=== PATIENT | female | born 1945 | race Caucasian/White ===

== ENCOUNTER 2016-07-20 14:49 | Emergency (ER) | payer MEDICARE, BC ==
[2016-07-20 15:06] VITALS: BP 172/83
--- NOTE | 2016-07-20 15:47 | UC ---
Neck Pain HPI - HPI Summary HPI Summary: The patient comes in today for: 1. Neck pain: Onset: 3-4 days. Palliative/provocative: Head movements does not make her neck pain better or worse by her report. However, when she turns her head, she will grimace. She is on Naproxen for her hip pain, but she states that this does not help. Touching the back of her neck makes it worse. Later even though initially she said that movement does not make her neck pain worse, she later said that moving her head down does. Later she states that the Naproxen did in fact make the pain better lowering the pain level from 8/10 to 6/10. Quality: Burning and sharp. Region: Back, of neck Severity: 10/23 Time: Constant. Associated symptoms: Previous disease: She states that she has osteoarthritis and osteoporosis. She has not had any previous c-spine x-rays. Event: She went to physical therapy today being seen for her osteoarthritis of the hips. While at physical therapy, the physical therapist looked at the patient's neck and said that she needed an x-ray. The physical therapist said that she was going to send a fax over to the patient's PCP yesterday. The patient called her PCP's office and said that the fax was not present. She was told to come here for evaluation. Numbness/weakness of arms: None. * - History of Current Complaint Chief Complaint: UCBackPain Stated Complaint: NECK PAIN Time Seen by Provider: 07/20/16 15:35 Hx Obtained From: Patient ?: No - Allergies/Home Medications Allergies/Adverse Reactions: Allergies Allergy/AdvReac Type Severity Reaction Status Date / Time Amoxicillin [From Augmentin] Allergy Hives Verified 07/20/16 15:07 Clavulanic Acid Allergy Hives Verified 07/20/16 15:07 [From Augmentin] Sulfa Antibiotics Allergy Hives Verified 07/20/16 15:07 Home Medications: Home Medications Naproxen [Naproxen Dr] 500 mg PO 07/20/16 [History] PMH/Surg Hx/FS Hx/Imm Hx Previously Healthy: No - Multiple sclerosis, osteoarthritis, osteoporosis, peripheral neuropathy? Endocrine History Of: Denies: Diabetes, Thyroid Disease, Hyperthyroidism, Hypothyroidism, Dyslipidemia Cardiovascular History Of: Reports: Deep Vein Thrombosis - hx 9 years ago (DVT bilateral lower legs). Denies: Cardiac Disorders, Hypertension, Pacemaker/ICD, Myocardial Infarction , Congestive Heart Failure, Atrial Fibrillation, Bleeding Disorders Respiratory History Of: Reports: COPD, Asthma Denies: Bronchitis, Pneumonia, Pulmonary Embolism GI/ History Of: Denies: Gastroesophageal Reflux, Ulcer, Gastrointestinal Bleed, Gall Bladder Disease, Kidney Stones, Diverticulitis, Renal Disease, Urosepsis Neurological History Of: Denies: TIA, CVA, Dementia, Seizures, Migraine Psychological History Of: Reports: Depression Denies: Anxiety, Bipolar Disorder, Schizophrenia, Post Traumatic Stress Disorder Cancer History Of: Reports: Lung Cancer, Colorectal Cancer Denies: Breast Cancer, Prostate Cancer, Cervical Cancer Other History Of: Anticoagulant Therapy - 81 mg aspirin, but she does not know why she is on this medication. Negative For: HIV, Hepatitis B, Hepatitis C - Surgical History Surgical History: Yes Surgery Procedure, Year, and Place: TONSILECTOMY;APPENDECTOMY; PARTIAL HYSTERECTOMY; EXPLORATORY THYROID; DISCECTOMY LOW BACK-2002; BREAST BIOPSY CLIP -Rt - Family History Known Family History: Positive: Cardiac Disease, Diabetes Negative: Hypertension - Social History Occupation: Retired Alcohol Use: Rare Substance Use Type: None Smoking Status (MU): Former Smoker Type: Cigarettes, eCigarettes Length of Time of Smoking/Using Tobacco: 40 years Have You Smoked in the Last Year: Yes When Did the Patient Quit Smoking/Using Tobacco: 2011 - Immunization History Most Recent Influenza Vaccination: fall 2015 Review Of Systems Constitutional: Positive: Negative Skin: Positive: Negative Eyes: Positive: Negative ENT: Positive: Negative Respiratory: Positive: Negative Cardiovascular: Positive: Negative Gastrointestinal: Positive: Negative Genitourinary: Positive: Negative Musculoskeletal: Positive: Arthralgia, Myalgia All Other Systems Reviewed And Are Negative: Yes Physical Exam Triage Information Reviewed: Yes Appearance: Well-Appearing, No Pain Distress, Well-Nourished Vital Signs: Initial Vital Signs Temp 98.3 F 07/20/16 14:59 Pulse 83 07/20/16 14:59 Resp 18 07/20/16 14:59 BP 172/83 07/20/16 14:59 Pulse Ox 96 07/20/16 14:59 Vital Signs Reviewed: Yes Eyes: Positive: Conjunctiva Clear. Negative: Discharge ENT: Positive: Hearing grossly normal. Negative: Pharyngeal erythema, Nasal congestion, Nasal drainage, TM bulging, TM dull, TM red, Tonsillar swelling, Tonsillar exudate Neck: Positive: Supple, Nontender, No Lymphadenopathy Respiratory: Positive: Chest non-tender, Lungs clear, No respiratory distress, No accessory muscle use. Negative: Crackles, Wheezing Cardiovascular: Positive: RRR, No Murmur Abdomen Description: Positive: Nontender, No Organomegaly, Soft. Negative: Distended, Guarding Musculoskeletal: Positive: Strength Intact, ROM Intact, No Edema, Other: - There was tenderness to palpation of the scalene musculature and the trapezius. Range of motion of the neck was restricted for backward extension. Left rotation is restricted compared to the right. Bilateral flexion is limited but as expected for a 70 year old with history of osteoarthritis and osteoporosis. There is 2+/2 x 2 for biceps, triceps, and brachioradialis. Strength is appropriate for age and symmetrical. Neurological: Positive: Alert, Muscle Tone Normal Psychological: Positive: Normal Response To Family, Age Appropriate Behavior, Consolable Skin: Negative: rashes, breakdown Diagnostics - Laboratory Diagnostic Studies Completed/Ordered: Cervical spine x-ray: IMPRESSION: 1. MILD CHRONIC ANTERIOR LISTHESIS AT THE C3-C4 LEVEL AND MILD RETROLISTHESIS AT THE C5-C6. LEVEL, UNCHANGED. 2. MODERATE TO SEVERE DEGENERATIVE DISC DISEASE AT THE C4-C5 AND C5-C6 LEVELS. - Radiology No standard instances Xray Interpretation: No Acute Changes Radiology Interpretation Completed By: Radiologist Neck Pain Course/Dx - Course Course Of Treatment: Osteoarthritis of the cervical spine. - Differential Dx/Diagnosis Provider Diagnoses: osteoarthritis of the cervical spine. Discharge - Discharge Plan Condition: Stable Disposition: HOME Patient Education Materials: Cervical Sprain (ED), Chronic Neck Pain (GEN), Degenerative Disc Disease (ED) Referrals: Jeni Gardner NP [Primary Care Provider] - 1 Week (Please see your primary care provider in a week to see how well you are doing. If you get worse, please be seen sooner in the ER or through us.) Additional Instructions: Please see your primary care provider regarding your osteoarthritis treatment or your orthopedic surgeon.
--- NOTE | 2016-07-20 16:24 | RAD ---
INDICATION: Neck pain, history of osteoarthritic. COMPARISON: Comparison is made with a prior study from April 13, 2011. TECHNIQUE: 5 views of the cervical spine were obtained including lateral, oblique, AP, open-mouth odontoid views. FINDINGS: C1-C7 are visualized. There is mild anterior listhesis of C3 relative to C4 and mild retrolisthesis of C5 relative to C6 of approximately 2 mm at each level. No prevertebral soft tissue swelling or fracture is seen. Moderate to severe disc space narrowing and mild uncinate process spurring is present at the C4-C5 and C5-C6 levels. There is mild to moderate bilateral neural foraminal narrowing at those levels. IMPRESSION: 1. MILD CHRONIC ANTERIOR LISTHESIS AT THE C3-C4 LEVEL AND MILD RETROLISTHESIS AT THE C5-C6 LEVEL, UNCHANGED. 2. MODERATE TO SEVERE DEGENERATIVE DISC DISEASE AT THE C4-C5 AND C5-C6 LEVELS.
== END 2016-07-20 17:01 | disposition home or self-care (01) ==
LOC: UCEAST 14:49
DX: M47.812 Spondylosis without myelopathy or radiculopathy, cervical region (principal); G35 Multiple sclerosis; Z79.82 Long term (current) use of aspirin; Z86.718 Personal history of other venous thrombosis and embolism; Z88.1 Allergy status to other antibiotic agents; Z88.2 Allergy status to sulfonamides; Z87.891 Personal history of nicotine dependence
CPT/HCPCS: 72050; 99212; G0463

== ENCOUNTER 2016-07-30 18:26 | Emergency (ER) | payer MEDICARE, BC ==
--- NOTE | 2016-07-30 21:12 | RAD ---
INDICATION: Right lower extremity swelling. COMPARISON: Comparison is made with a prior study from September 07, 2007. TECHNIQUE: Multiple real-time, color flow and Doppler tracings of the right lower extremity were obtained. FINDINGS: The common femoral, femoral, profunda femoral and popliteal veins all demonstrate normal compressibility, augmentation with compression and phasic response with respiration. The posterior tibial and peroneal veins demonstrate normal compressibility and augmentation with compression. IMPRESSION: NO EVIDENCE FOR DEEP VENOUS THROMBOSIS.
[2016-07-30] MEDS ORDERED: Rivaroxaban TAB(*) 20 MG TAB PO SCH (23:45)
[2016-07-30] MEDS ORDERED: Acetaminophen TAB* 325 MG PO ONE (23:51)
[2016-07-30] MEDS ORDERED: Rivaroxaban TAB(*) 15 MG PO ONE (23:57)
[2016-07-31 04:10] VITALS: BP 131/67
--- NOTE | 2016-08-01 09:25 | ED ---
Dylan Zamarripa Aidan, scribed for Bayron Harris MD on 07/30/16 at 2350 . Lower Extremity - HPI Summary HPI Summary: 70 y/o female presents to the ED with a complaint of acute, constant, moderate ( 5/10) pain in her right calf and right ankle swelling that persisted for a week before coming in today. She no longer has swelling in her right ankle. She denies any CP, SOB, or any recent excessive physical activity. Hx of COPD and blood clots. She was previously on Coumadin. Hx of smoking and DVT - History of Current Complaint Chief Complaint: EDExtremityLower Stated Complaint: SWELLING IN RT LEG/SENT BY DAVID STEWART Time Seen by Provider: 07/30/16 23:28 Hx Obtained From: Patient Hx Last Menstrual Period: 70 y/o female Mechanism Of Injury: Unknown Onset of Pain: Days - a week ago Onset/Duration: Weeks - 1 week Severity Initially: Moderate Severity Currently: Moderate Pain Intensity: 5 Pain Scale Used: 0-10 Numeric Timing: Constant Location: Is Discrete @ - right calf Character Of Pain: Sharp Associated Signs And Symptoms: Positive: Other - previously had right ankle swelling, however, she does not currently Aggravating Factor(s): Other - unknown Alleviating Factor(s): Other - unknown Able to Bear Weight: Yes - Risk Factors DVT Risk Factors: Prior DVT - Allergies/Home Medications Allergies/Adverse Reactions: Allergies Allergy/AdvReac Type Severity Reaction Status Date / Time Amoxicillin [From Augmentin] Allergy Hives Verified 07/30/16 18:57 Clavulanic Acid Allergy Hives Verified 07/30/16 18:57 [From Augmentin] Sulfa Antibiotics Allergy Hives Verified 07/30/16 18:57 PMH/Surg Hx/FS Hx/Imm Hx Endocrine/Hematology History: Reports: Hx Anticoagulant Therapy - 81 mg aspirin , but she does not know why she is on this medication. Denies: Hx Diabetes, Hx Thyroid Disease Cardiovascular History: Reports: Hx Deep Vein Thrombosis - hx 9 years ago (DVT bilateral lower legs)., Hx Hypercholesterolemia Denies: Hx Congestive Heart Failure, Hx Hypertension, Hx Myocardial Infarction, Hx Pacemaker/ICD Respiratory History: Reports: Hx Asthma, Hx Chronic Obstructive Pulmonary Disease (COPD), Hx Lung Cancer Denies: Hx Pneumonia, Hx Pulmonary Embolism Comment Only: Other Respiratory Problems/Disorders - HX PNEMONIA 2011 GI History: Reports: Other GI Disorders - bloating, occassional diarrhea Denies: Hx Gall Bladder Disease, Hx Gastrointestinal Bleed, Hx Ulcer, Hx Urosepsis History: Denies: Hx Kidney Stones, Hx Renal Disease Musculoskeletal History: Reports: Hx Osteoporosis Sensory History: Denies: Hx Hearing Aid Neurological History: Reports: Other Neuro Impairments/Disorders - MS Denies: Hx Dementia, Hx Migraine, Hx Seizures, Hx Transient Ischemic Attacks (TIA) Psychiatric History: Reports: Hx Depression Denies: Hx Anxiety, Hx Panic Disorder, Hx Schizophrenia, Hx Bipolar Disorder - Cancer History Hx Chemotherapy: No Hx Radiation Therapy: No - Surgical History Surgery Procedure, Year, and Place: TONSILECTOMY;APPENDECTOMY; PARTIAL HYSTERECTOMY; EXPLORATORY THYROID; DISCECTOMY LOW BACK-2002; BREAST BIOPSY CLIP -Rt Infectious Disease History: No Infectious Disease History: Denies: Hx Clostridium Difficile, Hx Hepatitis, Hx Human Immunodeficiency Virus (HIV), Hx of Known/Suspected MRSA, Hx Shingles, Hx Tuberculosis, Hx Known/ Suspected VRE, History Other Infectious Disease, Traveled Outside the [place] in Last 30 Days - Family History Known Family History: Positive: Cardiac Disease, Diabetes Negative: Hypertension - Social History Occupation: Retired Lives: With Family Alcohol Use: Rare Substance Use Type: Reports: None Smoking Status (MU): Former Smoker Type: Cigarettes, eCigarettes Length of Time of Smoking/Using Tobacco: 40 years Have You Smoked in the Last Year: Yes Review of Systems Negative: Fever, Chills, Fatigue, Skin Diaphoresis Negative: Photophobia, Blurred Vision, Diplopia, Drainage, Erythema Negative: Epistaxis, Dental Pain, Sore Throat, Ear Ache, Nasal Discharge Negative: Palpitations, Chest Pain Negative: Shortness Of Breath, Cough Negative: Abdominal Pain, Vomiting, Diarrhea, Nausea Negative: burning, dysuria, discharge, frequency, flank pain, hematuria, incontinence, pain, urgency Positive: Myalgia - had right ankle swelling that is not currently present, right calf pain, Edema - claims to have had right ankle swelling . Negative: Arthralgia, Decreased ROM Negative: Rash, Bruising Negative: Headache, Weakness, Paresthesia, Numbness, Syncope, Slurred Speech Negative: Anxious, Depressed All Other Systems Reviewed And Are Negative: Yes Physical Exam - Summary Physical Exam Summary: Constitutional: Well-developed, Well-nourished, Alert. (-) Distressed Skin: Warm, Dry HENT: Normocephalic; Atraumatic Eyes: Conjunctiva normal Neck: Musculoskeletal ROM normal neck. (-) JVD, (-) Stridor, (-) Tracheal deviation Cardio: Rhythm regular, rate normal, Heart sounds normal; Intact distal pulses; The pedal pulses are 2+ and symmetric. Radial pulses are 2+ and symmetric. (-) Murmur Pulmonary/Chest wall: Effort normal. (-) Respiratory distress, (-) Wheezes, (-) Rales Abd: Soft, (-) Tenderness, (-) Distension, (-) Guarding, (-) Rebound Musculoskeletal: (-) Edema Lymph: (-) Cervical adenopathy Neuro: Alert, Oriented x3 Psych: Mood and affect Normal tenderness over right posterior calf, no significant swelling Triage Information Reviewed: Yes Vital Signs On Initial Exam: Initial Vitals Temp Pulse Resp BP Pulse Ox 98.0 F 84 18 154/73 96 07/30/16 18:56 07/30/16 18:56 07/30/16 18:56 07/30/16 18:56 07/30/16 18:56 Vital Signs Reviewed: Yes Diagnostics - Vital Signs Vital Signs Temp Pulse Resp BP Pulse Ox 07/30/16 18:56 98.0 F 84 18 154/73 96 - Laboratory Lab Statement: Any lab studies that have been ordered have been reviewed, and results considered in the medical decision making process. Lower Extremity Course/Dx - Course Course Of Treatment: Given her Hx of DVT, no pain with active pass of ROM, and point tenderness despite a negative US, we cannot rule out DVT. Anticoagulate her for 3 days and to see PCP for repeat US on Tuesday08/02/2016 - Diagnoses Provider Diagnoses: Calf pain Discharge - Discharge Plan Condition: Stable Disposition: HOME Discharge Disposition Comment: Folloiw up with primary in 2 days, recommended to discontinue naproxen. Prescriptions: Rivaroxaban TAB(*) [Xarelto 15 mg(*)] 15 mg PO BID #10 tab The documentation as recorded by the Dylan gonzalez Aidan accurately reflects the service I personally performed and the decisions made by , Bayron Harris MD.
== END 2016-07-31 00:30 | disposition home or self-care (01) ==
LOC: ED 18:26
DX: M79.661 Pain in right lower leg (principal); M25.471 Effusion, right ankle; Z87.891 Personal history of nicotine dependence
CPT/HCPCS: 99282; A9270-GY

== ENCOUNTER 2017-12-06 16:00 | Inpatient (IN) | payer MEDICARE, OTHER ==
--- NOTE | 2017-11-30 10:12 | HP ---
HISTORY AND PHYSICAL: DATE OF ADMISSION: 12/08/17 PROVIDER: Dr. Akosua Guzman.* (DICTATED BY PENELOPE WALLACE) HISTORY OF PRESENT ILLNESS: Ms. Cleary is a 71-year-old female who complains of left groin pain and lateral hip pain. She is having trouble ambulating more than a block without severe pain. Her family members report that she does not walk much and then she does not leave the house much because of the pain. She has failed anti-inflammatories, Lyrica, and pain pills without relief. She has also failed physical therapy. She would like to proceed with a left total hip arthroplasty to be performed on 12/08/17. PAST MEDICAL HISTORY: 1. Osteoporosis. 2. Osteoarthritis. 3. Hypercholesterolemia. 4. Asthma. 5. COPD. 6. DVT after a leg fracture and casting that was seen in [facility]. 7. Multiple sclerosis. 8. Hypothyroidism. 9. Depression. 10. Anxiety. PAST SURGICAL HISTORY: 1. T and A. 2. Appendectomy. 3. Hysterectomy, subtotal. 4. Lower back surgery, discectomy. MEDICATIONS: 1. Advair Diskus 500/50 through the nebulizer use 3 times a day as needed. 2. Copaxone 40 mg/mL. 3. Prolia 60 mg/mL. 4. EpiPen 2-Ronal. 5. Ventolin HFA 180. 6. Combivent Respimat 20/100. 7. Atorvastatin calcium 20 mg. 8. MiraLAX 3350 NF 17 g every day. 9. Provigil 200 mg. 10. Venlafaxine extended release 150. 11. Albuterol sulfate 0.083%. 12. Ipratropium bromide 0.02%. 13. Aspirin 81 mg. 14. Soma 350. 15. Vitamin C. 16. Fish oil. 17. Lyrica 100 mg. ALLERGIES: 1. AUGMENTIN causes hives. 2. SULFA causes hives. FAMILY HISTORY: Maternal side stroke and rheumatoid arthritis. SOCIAL HISTORY: The patient lives with her . Denies any tobacco, alcohol, or recreational drug use. She is right-hand dominant. REVIEW OF SYSTEMS: General: The patient denies any fevers, chills, or night sweats. No known anesthesia problems. HEENT: The patient denies any headaches , lightheadedness, or syncopal episodes. Cardiothoracic: The patient denies any chest pain or heart palpitations. Pulmonary: The patient admits to COPD and asthma, shortness of breath with exertion. Denies chronic cough. GI: The patient denies any nausea, vomiting, diarrhea, or constipation. : The patient denies any nocturia or urinary frequency. MSK: The patient admits to left hip pain. Denies any intermittent back pain. Neuro: The patient denies any paresthesias or numbness. Integument: The patient denies any abrasions, lesions, rashes, lumps, or open sores. PHYSICAL EXAMINATION GENERAL: The patient is alert and oriented x3. No acute distress. Appropriate mood and affect. HEENT: Normocephalic, atraumatic. Hearing and vision are grossly intact. PULMONARY: Lungs are clear to auscultation bilaterally. No wheezes, rales, or rhonchi. CARDIO: Regular rate and rhythm. Normal S1 and S2. No appreciable S3 or S4. No murmurs, rubs, or gallops. MSK: Left lower extremity: Range of motion of the left hip is 100 degrees of flexion, 10 degrees of external rotation with groin pain, and 0 degrees of internal rotation. She has a positive log roll producing groin pain. Negative straight leg raise. She is able to abduct the hip with pain. She is neurovascularly intact distally with a 2+ dorsalis pedis pulse. ASSESSMENT: Left hip osteoarthritis, severe, end-stage. PLAN: To the OR for a left total hip arthroplasty to be performed on 12/08/17. The patient will follow up in 10 to 14 days for suture removal and followup. Informed consent was obtained today and the risks, benefits, and complications of surgery were reviewed with the patient. PENELOPE WALLACE [id number]/[facility] #: [id number] TOM
[2017-12-07] MEDS ORDERED: Buffered Lidocaine 0.9% SYRIN* 5 ML/SYR SYRINGE INTRADERM ONE (09:58)
[2017-12-08] MEDS ORDERED: Clindamycin 900 MG IVPREMIX(* 900 MG/50 ML SDV IV ONE (07:40)
--- OUTSIDE RECORDS SUMMARY | 2017-12-08 08:03 | XMS REPORT ---
:1945 External Reference #:[id number] Author Organization [facility] Address [address] [place] [address] Phone [phone] Care Team Providers Name Role Phone Abida Wadsworth MD Primary Care Physician Unavailable Payers Type Date Identification Numbers Payment Provider Subscriber Medicare Primary Effective: Policy Number: Medicare Nabila Cleary 2012 [id number] PayID: [id number] [address] [place] [address] Medigap Part B Effective: 2016 Policy Number: BS Facets Nabila Cleary [id number] Expires: 2017 PayID: [id number] [address] [address] [place] [address] Medigap Part B Effective: 2012 Policy Number: BS Facets Nabila Cleary [id number] Expires: 2016 PayID: [id number] [address] [address] [place] [address] Medigap Part B Effective: 2009 Policy Number: BS Of ОЛЕГY Nabila Cleary [id number] Expires: 2011 Group Number: [id number] [address] PayID: [id number] [place] [address] Commercial Policy Number: [id number] [facility] Nabila Cleary PayID: [id number] [address] [place] [address] Problems Date Description Provider Status Onset: 12/03/2010 Chronic obstructive lung disease Maryjo Joshi M.D., [facility] Active Onset: 12/03/2010 Multiple sclerosis [facility]., [facility] Active Onset: 03/15/2011 Tobacco user Maryjo Joshi M.D., [facility] Active Onset: 07/07/2016 Localized, primary osteoarthritis of Akosua Guzman M.D. 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 Hip surgery scheduled at the end of this month. 11/13/17 Exercise Type/Frequency Walks sporadically Allergies, Adverse Reactions, Alerts Date Description Reaction Status Severity Comments 12/01/2009 Augmentin HIVES active Severe 12/01/2009 Sulfa hives active Moderate Medications Medication Date Status Form Strength Qnty SIG Indications Ordering Provider Hydrocodone-Gilberto 11/05 Active Tablets 5-325mg 10tab 1 tab by Akosua taminophen s mouth twice Thomas, a day as M.D. needed for pain Tramadol HCL 11/04 Active Tablets 50mg 30tab 1 tab twice Akosua s a day as Thomas, needed for M.D. pain Walker 10/31 Active Misc 1unit front s wheeled carloz Guzman dx: M.D. severe b/L hip OA Advair Diskus 10/21 Active Aerosol 500-50mcg 60uni inhale one /Dose ts dose by Varn, N.P. mouth twice daily Nebulizer 07/18 Active Device 1unit use three s times a day Varn, N.P. as needed Copaxone 03/16 Active Soln 40mg/ml 36uni inject 1 Garrison S. Prefill ts syringe Jaymie Mckeon under the M.D. skin three times a week Prolia 10/23 Active Solution 60mg/ml 1ml 1 ml q 6 M81.0 months Varn, N.P. Epipen 2-Ronal 10/23 Active Solution 0.3mg/0.3 2unit use one time M81.0 Auto-Injec ML s as directed Varn, N.P. t Ventolin HFA 08/11 Active Aerosol 108(90Bas 1inha 1 to 2 J44.9 e) ler inhalations Varn, N.P. mcg/Act every 4 hours as needed Combivent 12/12 Active Aerosol 20-100mcg 4unit inhale 2 Jeni Respimat /2015 /Act s puffs by Varn, N.P. mouth four times a day Atorvastatin 01/14 Active Tablets 20mg 90tab take 1 E78.5 s tablet by Varn, N.P. mouth once daily Miralax 11/27 Active Powder 3350NF 238gm 17 gm every K59.00 day mixed w/ Varn, N.P. 8 oz water/juice as needed Provigil 05/26 Active Tablets 200mg 60tab 1 tablet Garrison S. s twice daily nelli Mckeon 2 tabs M.D. Venlafaxine HCL 02/22 Active Caps ER 150mg 90cap take 1 ER 24HR s capsule by Varn, N.P. mouth once daily maximum daily dose of 1 Albuterol 12/10 Active Nebulizer (2.5mg/3M 60uni 1 vial via J44.9 Sulfate L) 0.083% ts nebulizer Varn, N.P. every 12 hours as needed Ipratropium 12/10 Active Solution 0.02% 60uni use twice J44.9 Jeni Odonnell ts daily in Varn, N.P. nebulizer as needed Aspirin 03/25 Active Tablets 81mg 1 by mouth once daily Alba Wadsworth Soma 12/01 Active Tablets 350mg 90tab 1 tab by Garrison Perez s mouth q6 [place], hours as M.D. needed mdd 4 Vitamin C Active Chewtabs 500mg 1 po qd Fish Oil Active Capsules 1200mg 1 po qd Lyrica Active Capsules 100mg 90cap Take 1 s Tablet By Varn, N.P. Mouth 3 Times Daily. Max/Day=3 MDD 3 Tamiflu 08/08 Hx Capsules 75mg 10cap 1 by mouth Jeni /2018 s daily for 10 Varn, N.P. - days 08/18 Cipro 07/19 Hx Tablets 250mg 14tab one by nouth Jeni /2018 s twice daily Varn, N.P. - for 7 days 07/26 Xarelto 07/30 Hx Tablets 15mg 40tab 1 by mouth Jeni /2017 s twice daily Varn, N.P. - 12/28 Meloxicam 07/21 Hx Tablets 15mg 30tab 1 by mouth Jeni /2017 s every day Varn, N.P. - 08/04 Naproxen 07/07 Hx Tablets 500mg 30tab 1 tablet M25.552 s with food by Thomas, - mouth twice M.D. 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 Azithromycin 04/30 Hx Tablets 250mg 6tabs 2 tabs by J20.9 mouth every Sue, SENIOR OPERATIONS MANAGER - day x1 day, 05/06 1 tab by mouth every day x 4 days Tramadol HCL 06/05 Hx Tablets 50mg 30tab 1 tablet 724.5 s three to Varn, N.P. - four times 06/19 daily needed Spacer 03/27 Hx 2unit Use this 496 s with your Varn, N.P. - inhalers 11/25 Omeprazole 08/16 Hx Capsules 20mg 90cap 1 by mouth 530.81 s every day Varn, N.P. - 11/25 Azithromycin 04/19 Hx Tablets 250mg 6tabs two tabs day 466.0 one, one Madelyn, - daily till M.D., FACP 08/16 Guaifenesin ac 04/19 Hx Syrup 100-10mg/ 100cc 1 tsp by 466.0 5ML mouth every Madelyn, - day every M.D., FACP 10/10 night needed Prednisone 05/01 Hx Tablets 10mg 40tab as directed 466.0 s Varn, N.P. - 05/17 Azithromycin 04/27 Hx Tablets 250mg 6tabs two tabs day 466.0 one, one Varn, N.P. - daily till 05/07 Debrox 04/27 Hx Solution 6.5% 30ml 5 to 10 380.4 drops in Varn, N.P. - each ear 05/11 twice daily Azithromycin 03/03 Hx Tablets 250mg 6tabs two tabs day 466.0 one, one Varn, N.P. - daily till 03/13 Prednisone 03/03 Hx Tablets 5mg 140ta as directed 466.0 bs Varn, N.P. - 03/19 Robitussin ac 03/03 Hx 120un 1 - 2 tsp q 466.0 its 4 hrs prn Roycen, N.P. - cough 10/04 Ergocalciferol 11/07 Hx Capsules 11807Abpg 8caps one po once 268.9 weekly Deuce Joshi M.D., [facility] 01/06 Advair Diskus 06/16 Hx Aerosol 250-50mcg 180un inhale 1 /Dose its dose by Vargaviota, N.P. - mouth twice 10/21 a day /2017 Estrace 03/15 Hx Cream 0.1mg/GM 42.50 1 596.9 0gm application Madelyn, - two times M.D., FACP 04/27 Levofloxacin 02/03 Hx Tablets 500mg 7tabs 1 po qd 496 Deuce Joshi M.D., [facility] 04/15 Advair Diskus 02/03 Hx Aerosol 500-50mcg 1unit 1 puff bid /Dose s Deuce Joshi M.D., [facility] 06/16 Alprazolam 12/28 Hx Tablets 0.25mg 30tab 1 tab three 300.00 s times daily Madelyn, - as needed M.D., FACP 08/09 Prednisone 12/10 Hx Tablets 10mg 15tab 1 tablet by 496 s mouth every Madelyn, - morning for M.D., [facility] 02/03 one week - then 1/2 tablet by mouth for one week - then 1/4 tablet by mouth for one week Robitussin ac 12/10 Hx Solution 4Oz 1-2 tsp at 496 bedtime as Madelyn, - needed M.D., [facility] 08/08 Wellbutrin SR 12/10 Hx Tablets ER 100mg 30tab 1 by mouth 496 12HR s every Am Deuce Joshi M.D., [facility] 02/03 Nebulizer 12/10 Hx use as J44.9 directed Deuce Joshi M.D., FACP 07/18 Levofloxacin 12/03 Hx Tablets 500mg 7tabs 1 tab by 496 mouth every Madelyn, - day M.D., FACP 12/10 Prednisone 12/03 Hx Tablets 5mg 50tab 4 tabs po qd 496 s x 4d then 3 Madelyn, - tabs po qd x M.D., FACP 12/10 3d then tabs po qd x 2d then 1 tab po qd x 1 d then 1/2 tab po qd x 2d. Combivent 09/14 Hx Aerosol 18-103mcg 14.7u inhale 2 /Act nits puffs by Varn, N.P. - mouth tid 12/12 Chantix 12/02 Hx Start 1unit use as Pack s Deuce York M.D., [facility] 03/25 Effexor XR 12/01 Hx Caps ER 150mg 90cap 1 tablet 24HR s daily Deuce Joshi M.D., [facility] 02/22 Advair Diskus Hx 250-50mcg 3mont 1 inhalation Maryjo /0000 /Dose hs twice daily Deuce Joshi M.D., FACP 02/03 Combivent Hx 103-18mcg 1 Inhalation Madelyn, /0000 /Act Twice A Day MD Maryjo - as Needed 09/14 Cheratussin ac Hx 100-10mg/ 118ml 1-2 tsp po Maryjo /0000 5ML qhs prn Deuce Joshi M.D., [facility] 12/01 Azithromycin Hx 250mg 6unit 2 tabs po Maryjo /0000 s day 1 then 1 Madelyn, - po qd til M.Viri, FACP 12/01 Alendronate Hx Tabs 70mg 4tabs take 1 Maryjo Sodium /0000 tablet by Madelyn, - mouth every M.D., FACP Lipitor Hx Tablets 20mg 90tab 1 po qd 272.4 Jeni / s Varn, N.P. - 01/14 Copaxone Hx Soln 20mg/ml 90uni 1 inj daily Garrison S. /0000 Prefill kavita Mckeon - Jaymie Willis 03/16 Medications Administered in Office Medication Date Status Form Strength Qnty SIG Indications Ordering Provider Prolia Administered Injection Nurse Visit Injection, 017 A Denosumab, 1MG Prolia Administered Injection Nurse Visit Injection, 017 A Denosumab, 1MG Prolia Administered Injection Nurse Visit Injection, 016 A Denosumab, 1MG Immunizations CPT Code Status Date Vaccine Reaction Lot # [id number] Given 02/09/2016 Influenza Virus Vaccine, no reaction noted [id number] Quadrivalent, Split, .... hh Preservative Free 70361 Given 08/12/2015 Pneumococcal Conjugate [id number] Vaccine 13 Valent For Intramuscular Use Q2039 Given 03/05/2015 Flu Vaccine NOS 98530 Given 02/26/2014 Fluzone High Dose Q2037 Given 04/18/2012 Fluvirin Im 3Yrs And Older Q2037 Given 04/18/2012 Fluvirin Im 3Yrs And Older [id number] 71784 Given 04/18/2012 Zoster (Zostavax) [id number] 24983 Given 02/03/2011 Influenza Virus 3Yrs & Over [id number] 40428 Given 03/20/2010 Influenza Virus 3Yrs & Over [id number] 48940 Given 04/24/2009 Administration Swine Flu Shot 25525 Given 04/24/2009 Influenza Virus Vaccine, Pandemic Formulation 15421 Given 02/24/2009 Influenza Virus 3Yrs & Over 47995 Given 02/16/2008 Pneumonia Vaccine 83425 Given 02/16/2008 Pneumonia Vaccine 99625 Given 02/16/2008 Influenza Virus 3Yrs & Over 68903 Given 04/18/2007 Influenza Virus 3Yrs & Over 65166 Given 06/23/2006 Tdap - Tetanus/Diptheria/Acellular Pertussis 94504 Given 06/23/2006 Tdap - Tetanus/Diptheria/Acellular Pertussis 52021 Given 04/04/2006 Influenza Virus 3Yrs & Over Vital Signs Date Vital Result Comment 11/25/2017 Height 66.25 inches 5'6.25" Weight 111.00 lb Heart Rate 84 /min BP Systolic Sitting 140 mmHg BP Diastolic Sitting 80 mmHg Respiratory Rate 16 /min Pain Level 2 BMI (Body Mass Index) 17.8 kg/m2 11/23/2017 Height 66.25 inches 5'6.25" Weight 110.00 lb Heart Rate 106 /min BP Systolic Sitting 110 mmHg BP Diastolic Sitting 68 mmHg Body Temperature 97.8 F O2 % BldC Oximetry 92 % BMI (Body Mass Index) 17.6 kg/m2 11/14/2017 Height 66.25 inches 5'6.25" Weight 110.00 lb Heart Rate 70 /min BP Systolic Sitting 118 mmHg Lue reg cuff BP Diastolic Sitting 60 mmHg Lue reg cuff Respiratory Rate 20 /min O2 % BldC Oximetry 93 % BMI (Body Mass Index) 17.6 kg/m2 Neck Circumference in inches 13.5 10/31/2017 Height 66.25 inches 5'6.25" Weight 109.00 lb BP Systolic 126 mmHg BP Diastolic 86 mmHg Body Temperature 98.0 F BMI (Body Mass Index) 17.5 kg/m2 10/21/2017 Weight 113.00 lb Heart Rate 95 /min BP Systolic 110 mmHg BP Diastolic 60 mmHg Body Temperature 97.8 F O2 % BldC Oximetry 92 % 03/16/2017 Height 68 inches 5'8" Weight 116.12 lb Heart Rate 84 /min BP Systolic Sitting 136 mmHg BP Diastolic Sitting 72 mmHg Respiratory Rate 16 /min BMI (Body Mass Index) 17.7 kg/m2 01/07/2017 Weight 119.00 lb Heart Rate 95 /min BP Systolic Sitting 110 mmHg BP Diastolic Sitting 70 mmHg Body Temperature 98.6 F O2 % BldC Oximetry 93 % 12/28/2016 Weight 117.75 lb Heart Rate 106 /min BP Systolic 110 mmHg BP Diastolic 68 mmHg Body Temperature 98.7 F O2 % BldC Oximetry 94 % 08/04/2016 Weight 122.00 lb Heart Rate 100 /min BP Systolic Sitting 104 mmHg BP Diastolic Sitting 68 mmHg Body Temperature 97.8 F O2 % BldC Oximetry 95 % 07/22/2016 Weight 124.00 lb with shoes Heart Rate 88 /min BP Systolic 158 mmHg BP Diastolic 90 mmHg 07/07/2016 Height 66 inches 5'6" Weight 125.00 lb Heart Rate 86 /min BP Systolic 132 mmHg BP Diastolic 73 mmHg Pain Level 4 BMI (Body Mass Index) 20.2 kg/m2 06/22/2016 Weight 123.50 lb Heart Rate 92 /min BP Systolic Sitting 140 mmHg BP Diastolic Sitting 78 mmHg Body Temperature 98.4 F O2 % BldC Oximetry 93 % 04/16/2016 Weight 123.00 lb with shoes Heart Rate 93 /min BP Systolic Sitting 140 mmHg BP Diastolic Sitting 80 mmHg Body Temperature 98.1 F O2 % BldC Oximetry 94 % 03/02/2016 Weight 122.12 lb Heart Rate 78 /min BP Systolic Sitting 120 mmHg BP Diastolic Sitting 82 mmHg 02/09/2016 Weight 123.00 lb Heart Rate 98 /min BP Systolic Sitting 132 mmHg BP Diastolic Sitting 80 mmHg Respiratory Rate 14 /min Body Temperature 98.4 F O2 % BldC Oximetry 98 % 10/24/2015 Weight 120.00 lb Heart Rate 78 /min BP Systolic Sitting 150 mmHg BP Diastolic Sitting 86 mmHg Body Temperature 97.9 F O2 % BldC Oximetry 93 % 10/24/2015 Weight 120.00 lb Heart Rate 79 /min BP Systolic Sitting 150 mmHg BP Diastolic Sitting 86 mmHg Body Temperature 97.8 F O2 % BldC Oximetry 93 % 08/12/2015 Height 66 inches 5'6" Weight 120.00 lb Heart Rate 78 /min BP Systolic Sitting 126 mmHg BP Diastolic Sitting 82 mmHg Respiratory Rate 14 /min Body Temperature 98.0 F O2 % BldC Oximetry 92 % BMI (Body Mass Index) 19.4 kg/m2 04/30/2015 Weight 118.75 lb Heart Rate 86 /min BP Systolic Sitting 140 mmHg BP Diastolic Sitting 82 mmHg Body Temperature 99.4 F O2 % BldC Oximetry 92 % 11/26/2014 Height 67 inches 5'7" Weight 124.00 lb Heart Rate 64 /min BP Systolic Sitting 130 mmHg BP Diastolic Sitting 70 mmHg Respiratory Rate 14 /min BMI (Body Mass Index) 19.4 kg/m2 06/07/2014 Weight 128.50 lb Heart Rate 84 /min BP Systolic Sitting 116 mmHg BP Diastolic Sitting 74 mmHg Body Temperature 97.3 F O2 % BldC Oximetry 92 % 06/05/2014 Weight 128.00 lb Heart Rate 80 /min BP Systolic Sitting 144 mmHg BP Diastolic Sitting 70 mmHg Body Temperature 97.9 F 04/10/2014 Height 66 inches 5'6" Weight 124.00 lb Heart Rate 97 /min BP Systolic 68 mmHg BP Systolic Sitting 130 mmHg BP Diastolic Sitting 70 mmHg O2 % BldC Oximetry 99 % BMI (Body Mass Index) 20.0 kg/m2 03/27/2014 Height 66 inches 5'6" Weight 125.50 lb Heart Rate 79 /min BP Systolic Sitting 142 mmHg BP Diastolic Sitting 78 mmHg Body Temperature 98.3 F O2 % BldC Oximetry 93 % BMI (Body Mass Index) 20.3 kg/m2 03/21/2014 Height 66 inches 5'6" Weight 124.00 lb Heart Rate 100 /min BP Systolic Sitting 124 mmHg BP Diastolic Sitting 60 mmHg Body Temperature 98.8 F O2 % BldC Oximetry 90 % BMI (Body Mass Index) 20.0 kg/m2 11/27/2013 Height 66 inches 5'6" Weight 127.50 lb Heart Rate 78 /min BP Systolic Sitting 118 mmHg BP Diastolic Sitting 76 mmHg Body Temperature 98.3 F BMI (Body Mass Index) 20.6 kg/m2 10/23/2013 Height 66 inches 5'6" Weight 128.00 lb Heart Rate 98 /min BP Systolic Sitting 120 mmHg BP Diastolic Sitting 78 mmHg Respiratory Rate 16 /min BMI (Body Mass Index) 20.7 kg/m2 10/10/2013 Height 66 inches 5'6" Weight 128.50 lb Heart Rate 80 /min BP Systolic 130 mmHg BP Diastolic 78 mmHg Respiratory Rate 16 /min Body Temperature 98.1 F BMI (Body Mass Index) 20.7 kg/m2 09/04/2013 Weight 129.00 lb Heart Rate 90 /min BP Systolic Sitting 130 mmHg BP Diastolic Sitting 84 mmHg O2 % BldC Oximetry 90 % 08/16/2013 Weight 126.00 lb Heart Rate 82 /min BP Systolic Sitting 124 mmHg BP Diastolic Sitting 72 mmHg O2 % BldC Oximetry 92 % Peak Flow Meter 160 150,145 04/19/2013 Weight 125.00 lb Heart Rate 78 /min BP Systolic Sitting 124 mmHg BP Diastolic Sitting 72 mmHg Body Temperature 96.9 F 02/22/2013 Weight 125.50 lb Heart Rate 84 /min BP Systolic 130 mmHg BP Diastolic 80 mmHg 11/06/2012 Weight 118.00 lb Heart Rate 80 /min BP Systolic Sitting 142 mmHg BP Diastolic Sitting 82 mmHg 10/16/2012 Weight 120.50 lb Heart Rate 76 /min BP Systolic Sitting 120 mmHg BP Diastolic Sitting 70 mmHg 10/04/2012 Heart Rate 78 /min BP Systolic Sitting 130 mmHg BP Diastolic Sitting 82 mmHg Respiratory Rate 15 /min 05/01/2012 Height 67.5 inches 5'7.50" Weight 113.00 lb Heart Rate 78 /min Irregular BP Systolic Sitting 118 mmHg BP Diastolic Sitting 80 mmHg O2 % BldC Oximetry 95 % BMI (Body Mass Index) 17.4 kg/m2 04/27/2012 Height 67.5 inches 5'7.50" Heart Rate 76 /min BP Systolic Sitting 142 mmHg BP Diastolic Sitting 78 mmHg Body Temperature 97.4 F 03/03/2012 Height 67.5 inches 5'7.50" Weight 112.00 lb Heart Rate 92 /min BP Systolic Sitting 150 mmHg BP Diastolic Sitting 76 mmHg Body Temperature 98.6 F oral` BMI (Body Mass Index) 17.3 kg/m2 11/08/2011 Height 67.5 inches 5'7.50" Weight 115.00 lb Heart Rate 80 /min BP Systolic Sitting 130 mmHg BP Diastolic Sitting 74 mmHg BMI (Body Mass Index) 17.7 kg/m2 09/06/2011 Height 67.5 inches 5'7.50" Weight 116.00 lb Heart Rate 76 /min BP Systolic Sitting 114 mmHg BP Diastolic Sitting 62 mmHg BMI (Body Mass Index) 17.9 kg/m2 08/10/2011 Height 67.5 inches 5'7.50" Weight 119.00 lb Heart Rate 80 /min BP Systolic Sitting 148 mmHg repeat BP sitting 148/80; laying 160/90 BP Diastolic Sitting 74 mmHg repeat BP sitting 148/80; laying 160/90 BMI (Body Mass Index) 18.4 kg/m2 04/15/2011 Height 67.5 inches 5'7.50" Weight 115.75 lb Heart Rate 68 /min BP Systolic Sitting 144 mmHg L BP Diastolic Sitting 90 mmHg L BMI (Body Mass Index) 17.9 kg/m2 04/13/2011 Height 67.5 inches 5'7.50" Heart Rate 100 /min BP Systolic 120 mmHg BP Diastolic 80 mmHg O2 % BldC Oximetry 97 % 03/15/2011 Height 67.5 inches 5'7.50" Weight 115.00 lb Heart Rate 86 /min BP Systolic Sitting 150 mmHg BP Diastolic Sitting 68 mmHg BMI (Body Mass Index) 17.7 kg/m2 02/10/2011 Height 67.5 inches 5'7.50" Weight 116.00 lb Heart Rate 86 /min BP Systolic Sitting 114 mmHg BP Diastolic Sitting 62 mmHg O2 % BldC Oximetry 91 % BMI (Body Mass Index) 17.9 kg/m2 02/03/2011 Height 67.5 inches 5'7.50" Weight 113.00 lb Heart Rate 70 /min BP Systolic Sitting 108 mmHg BP Diastolic Sitting 62 mmHg Body Temperature 99.9 F O2 % BldC Oximetry 90 % 91-92% post cough BMI (Body Mass Index) 17.4 kg/m2 12/28/2010 Height 67.5 inches 5'7.50" Weight 116.00 lb Heart Rate 76 /min BP Systolic Sitting 110 mmHg BP Diastolic Sitting 68 mmHg BMI (Body Mass Index) 17.9 kg/m2 12/10/2010 Height 67.5 inches 5'7.50" Weight 114.00 lb Heart Rate 84 /min BP Systolic Sitting 110 mmHg BP Diastolic Sitting 70 mmHg Body Temperature 98.8 F O2 % BldC Oximetry 95 % BMI (Body Mass Index) 17.6 kg/m2 12/03/2010 Height 67.5 inches 5'7.50" Weight 115.00 lb Heart Rate 94 /min BP Systolic Sitting 126 mmHg BP Diastolic Sitting 80 mmHg Body Temperature 98.3 F O2 % BldC Oximetry 92 % 92 txafter neb BMI (Body Mass Index) 17.7 kg/m2 04/23/2010 Weight 123.00 lb Heart Rate 80 /min BP Systolic 120 mmHg BP Diastolic 78 mmHg 03/25/2010 Weight 119.00 lb Heart Rate 92 /min BP Systolic 140 mmHg BP Diastolic 78 mmHg O2 % BldC Oximetry 96 % Results Test Date Test Result H/L Range Note Order 11/17/2017 Home Sleep Testing <pending> Urine Culture And 07/20/2017 Urine Culture SEE RESULT 1 Sensitivities BELOW Laboratory test finding 10/01/2016 Surgical Pathology SEE RESULT 2, 3 BELOW Comp Metabolic Panel 02/06/2016 Sodium 137 mmol/L 133-145 Potassium 4.2 mmol/L 3.5-5.0 Chloride 103 mmol/L 101-111 Co2 Carbon Dioxide 30 mmol/L 22-32 Anion Gap 4 mmol/L 2-11 Glucose 89 mg/dL 70-100 Blood Urea Nitrogen 14 mg/dL 6-24 Creatinine 0.57 mg/dL 0.51-0.95 BUN/Creatinine Ratio 24.6 High 8-20 Calcium 9.1 mg/dL 8.6-10.3 Total Protein 6.3 g/dL Low 6.4-8.9 Albumin 4.0 g/dL 3.2-5.2 Globulin 2.3 g/dL 2-4 Albumin/Globulin Ratio 1.7 1-3 Total Bilirubin 0.50 mg/dL 0.2-1.0 Alkaline Phosphatase 79 U/L 34-104 Alt 15 U/L 7-52 Ast 20 U/L 13-39 Egfr Non- 105.2 >60 Egfr 135.2 >60 4 CBC Auto Diff 02/06/2016 White Blood Count 5.2 10^3/uL 3.5-10.8 Red Blood Count 4.54 10^6/uL 4.0-5.4 Hemoglobin 14.2 g/dL 12.0-16.0 Hematocrit 43 % 35-47 Mean Corpuscular Volume 94 fL 80-97 Mean Corpuscular Hemoglobin 31 pg 27-31 Mean Corpuscular HGB Conc 33 g/dL 31-36 Red Cell Distribution Width 14 % 10.5-15 Platelet Count 279 10^3/uL 150-450 Mean Platelet Volume 8 um3 7.4-10.4 Abs Neutrophils 3.2 10^3/uL 1.5-7.7 Abs Lymphocytes 1.2 10^3/uL 1.0-4.8 Abs Monocytes 0.5 10^3/uL 0-0.8 Abs Eosinophils 0.2 10^3/uL 0-0.6 Abs Basophils 0 10^3/uL 0-0.2 Abs Nucleated RBC 0 10^3/uL Granulocyte % 61.3 % 38-83 Lymphocyte % 23.7 % Low 25-47 Monocyte % 10.4 % High 1-9 Eosinophil % 3.7 % 0-6 Basophil % 0.9 % 0-2 Nucleated Red Blood Cells % 0 Laboratory test 11/13/2013 Hepatitis C Antibody Nonreactive Nonreactive finding Lipid Profile 11/13/2013 Triglycerides 53 mg/dL 5, 6 (Trig/Chol/HDL) Cholesterol 286 mg/dL 5, 7 HDL Cholesterol 73.8 mg/dL 5, 8 LDL Cholesterol 202 mg/dL 5, 9 Comp Metabolic Panel 11/13/2013 Sodium 138 mmol/L 133-145 5 Potassium 4.1 mmol/L 3.7-5.6 5 Chloride 104 mmol/L 101-111 5 Co2 Carbon Dioxide 28 mmol/L 22-32 5 Anion Gap 6 mmol/L 2-11 5 Glucose 90 mg/dL 70-100 5 Blood Urea Nitrogen 14 mg/dL 6-24 5 Creatinine 0.53 mg/dL 0.51-0.95 5 BUN/Creatinine Ratio 26.4 High 8-20 5 Calcium 9.1 mg/dL 8.6-10.3 5 Total Protein 6.3 g/dL Low 6.4-8.9 5 Albumin 4.1 g/dL 3.2-5.2 5 Globulin 2.2 g/dL 2-4 5 Albumin/Globulin Ratio 1.9 1-3 5 Total Bilirubin 0.50 mg/dL 0.2-1.0 5 Alkaline Phosphatase 68 U/L 34-104 5 Alt 14 U/L 7-52 5 Ast 20 U/L 13-39 5 Egfr Non- 115.4 >60 5 Egfr 148.4 >60 5, 10 Vitamin D, 25 Hydroxy 11/13/2013 25-Hydroxy Vitamin D2 <4.0 ng/mL 5 25-Hydroxy Vitamin D3 28 ng/mL 5 25-Hydroxy Vitamin D Total 28 ng/mL 5, 11 Basic Metabolic Panel 08/16/2013 Sodium 135 mmol/L 133-145 Potassium 5.2 mmol/L 3.7-5.6 Chloride 99 mmol/L Low 101-111 Co2 Carbon Dioxide 31 mmol/L 22-32 Anion Gap 5 mmol/L 2-11 Glucose 73 mg/dL 70-100 Blood Urea Nitrogen 13 mg/dL 6-24 Creatinine 0.46 mg/dL Low 0.51-0.95 BUN/Creatinine Ratio 28.3 High 8-20 Calcium 9.6 mg/dL 8.6-10.3 Egfr Non- 135.9 >60 Egfr 174.8 >60 12 CBC With Manual Diff 10/16/2012 White Blood Count 5.9 10^3/uL 4.8-10.8 Red Blood Count 4.46 10^6/uL 4.0-5.4 Hemoglobin 14.4 g/dL 12.0-16.0 Hematocrit 42 % 35-47 Mean Corpuscular Volume 94 fL 80-97 Mean Corpuscular Hemoglobin 32 pg High 27-31 Mean Corpuscular HGB Conc 35 g/dL 31-36 Red Cell Distribution Width 14 % 10.5-15 Platelet Count 265 10^3/uL 150-450 Mean Platelet Volume 8 um3 7.4-10.4 Abs Neutrophils 3.3 10^3/uL 1.5-7.7 Abs Lymphocytes 1.9 10^3/uL 1.0-4.8 Abs Monocytes 0.5 10^3/uL 0-0.8 Abs Eosinophils 0.2 10^3/uL 0-0.6 Abs Basophils 0 10^3/uL 0-0.2 Abs Nucleated RBC 0.01 10^3/uL Neutrophil % 57 % 38-83 Lymphocytes % 33 % 25-47 Monocytes % 5 % 0-13 Eosinophils % 1 % 0-6 Basophil % 1 % 0-2 Reactive Lymph % 3 % 0-6 RBC Morphology Normal Normal Laboratory test finding 10/16/2012 LDH 190 U/L High 95-185 Comp Metabolic Panel 10/16/2012 Sodium 138 mmol/L 133-145 Potassium 4.0 mmol/L 3.5-5.0 Chloride 103 mmol/L 101-111 Co2 Carbon Dioxide 31.0 mmol/L 22-32 Anion Gap 4.0 mmol/L 2-11 Glucose 101 mg/dL High 70-100 Blood Urea Nitrogen 11 mg/dL 6-24 Creatinine 0.50 mg/dL 0.50-1.40 BUN/Creatinine Ratio 22.0 High 8-20 Calcium 9.3 mg/dL 8.1-9.9 Total Protein 6.4 g/dL 6.2-8.1 Albumin 3.9 g/dL 3.2-5.2 Globulin 2.5 g/dL 2-4 Albumin/Globulin Ratio 1.6 1-3 Total Bilirubin 0.5 mg/dL 0.4-1.5 Alkaline Phosphatase 91 U/L 30-110 Alt 22 U/L 14-54 Ast 25 U/L 12-42 Egfr Non- 123.8 >60 Egfr 159.2 >60 13 Laboratory test finding 10/16/2012 C Reactive Protein < 0.5 mg/dL Less than 0.5 Erythrocyte Sed Rate 16 mm/Hr 0-40 Laboratory test finding 10/16/2012 TSH (Thyroid 2.25 miu/mL 0.34-5.60 Stimulating Horm) Comp Metabolic Panel 11/01/2011 Sodium 134 mmol/L Low 135-145 Potassium 4.2 mmol/L 3.5-5.0 Chloride 102 mmol/L 101-111 Co2 (Carbon Dioxide) 29.0 mmol/L 22-32 Anion Gap 3.0 mmol/L 2-11 14 Glucose 101 mg/dL High 70-100 BUN 13 mg/dL 6-24 Creatinine 0.5 mg/dL Low 0.50-1.40 One Over Creatinine 2.00 BUN/Creatinine Ratio 26.0 High 8-20 Calcium 8.9 mg/dL 8.1-9.9 Total Protein 6.2 GM/DL 6.2-8.1 Albumin 3.9 GM/DL 3.2-5.2 Globulin 2.3 GM/DL 2-4 Albumin/Globulin Ratio 1.7 1-3 Bilirubin Total 0.7 mg/dL 0.4-1.5 15 Alkaline Phosphatase 64 U/L 30-110 Alt (SGPT) 20 U/L 14-54 Ast (Sgot) 23 U/L 12-42 eGFR Non- 124.2 > 60 eGFR 159.7 > 60 16 Lipid Profile (Trig/Chol/HDL) 11/01/2011 Triglyceride 43 mg/dL 40-200 Cholesterol 246 mg/dL High Less Than 200 17 High Density Lipoprotein 90 mg/dL High 40-60 18 Cholesterol/HDL Ratio 2.73 AVERAGE 1-4.44 Low Density Lipoprotein 147 mg/dL High Less Than 100 19 Laboratory test finding 11/01/2011 TSH 2.76 MIU/ML 0.34-5.60 Vitamin D, 25 Hydroxy 11/01/2011 25-Hydroxy Vitamin D2 <4.0 ng/mL () 25-Hydroxy Vitamin D3 22 ng/mL () 25-Hydroxy Vitamin D Total 22 ng/mL () 20 Vitamin D 1,25 And 11/01/2011 Vitamin D, 1,25 Dihydroxy 63 pg/mL 18-78 21 Vitamin D,2 CKMB 04/13/2011 CKMB In NG/ML 4.3 NG/ML High 0.3-4.0 % CKMB 3 %MB 0-9 22 Laboratory test finding 04/13/2011 CPK (Creatine Kinase) 134 U/L 0-170 Comp Metabolic Panel 04/13/2011 Sodium 138 mmol/L 135-145 Potassium 3.9 mmol/L 3.5-5.0 Chloride 101 mmol/L 101-111 Co2 (Carbon Dioxide) 29.0 mmol/L 22-32 Anion Gap 8.0 mmol/L 2-11 23 Glucose 95 mg/dL 70-100 BUN 11 mg/dL 6-24 Creatinine 0.5 mg/dL Low 0.50-1.40 One Over Creatinine 2.00 BUN/Creatinine Ratio 22.0 High 8-20 Calcium 8.8 mg/dL 8.1-9.9 Total Protein 6.2 GM/DL 6.2-8.1 Albumin 3.8 GM/DL 3.2-5.2 Globulin 2.4 GM/DL 2-4 Albumin/Globulin Ratio 1.6 1-3 Bilirubin Total 0.5 mg/dL 0.4-1.5 24 Alkaline Phosphatase 70 U/L 30-110 Alt (SGPT) 24 U/L 14-54 Ast (Sgot) 28 U/L 12-42 eGFR Non- 124.2 > 60 eGFR 159.7 > 60 25 CBC Auto Diff 04/13/2011 White Blood Count 5.2 CUMM 4.8-10.8 Red Cell Count 4.39 CUMM 4.2-5.4 Hemoglobin 15.1 g/dL 12.0-16.0 Hematocrit 42 % 35-47 Mean Corpuscular Volume 96 um3 79-97 Mean Corpuscular Hemoglob 34 pg High 27-31 Mean Corpuscular HGB Cone 36 g/dL 32-36 Redcell Distribution WDTH 13 % 10.5-15 Platelet Count 259 CUMM 150-450 Mean Platelet Volume 7.7 um3 7.4-10.4 Gran % 61.2 % 38-83 Lymph % 27.2 % 25-47 Mononuclear % 7.2 % 1-9 Eosinophil % 3.1 % 0-6 Basophil % 1.3 % 0-2 Abs Lymphs 1.4 1.0-4.8 Abs Mononuclear 0.4 0-0.8 Absolute Neutrophil Count 3.1 1.5-7.7 Abs Eosinophils 0.2 0-0.6 Abs Basophils 0.1 0-0.2 Laboratory test finding 04/13/2011 Troponin-I 0.01 NG/ML 0-0.06 26 Vitamin D 1,25 And 03/19/2011 Vitamin D, 1,25 65 pg/mL 18-78 27 Vitamin D,2 Dihydroxy Laboratory test finding 03/19/2011 TSH 2.89 MIU/ML 0.34-5.60 Vitamin D, 25 Hydroxy 03/19/2011 25-Hydroxy Vitamin D2 <4.0 ng/mL () 25-Hydroxy Vitamin D3 37 ng/mL () 25-Hydroxy Vitamin D Total 37 ng/mL () 28 Surgical Pathology 07/11/2006 Surgical Pathology <SEE NOTE > 29 1 SEE RESULT BELOW Name: NABILA CLEARY Izabel : [address]: Jeni Gardner NP Acct: [id number] Unit: [id number] AGE: 71 Location: [facility] Re07/20/17 SEX: F Status: REG REF SPEC: [id number] CUCA: 07/20/[address]: Jeni Gardner NP REQ: [id number] RECD: 07/20/17 STATUS: RAIZA GUDINO DR: Abida Wadsworth MD _ SOURCE: URINE SPDESC: ORDERED: Urine Culture Procedure Result Reported Site Urine Culture Final 07/22/17- 0854 ML Organism 1 ESCHERICHIA COLI [place] Count >100,000 (Many) CFU/ML 1. ESCHERICHIA COLI M.I.C. RX --------- ------ Ampicillin 4 S Cefazolin <=4 S Cefepime <=1 S Ceftriaxone <=1 S Ciprofloxacin <=0.25 S Gentamicin <=1 S Levofloxacin <=0.12 S Meropenem <=0.25 S Nitrofurantoin <=16 S Tetracycline <=1 S Pipercillin/Tazobactam <=4 S Trimethoprim/Sulfamethoxazole <=20 S Amoxicillin/Clavulanic Acid <=2 S Aztreonam <=1 S Contact the Microbiology Department for any additional antibiotic reporting. * ML - Main Lab . END OF REPORT DEPARTMENT OF PATHOLOGY, [address] [place] [address] Kervin Read M.D. Director [facility] # [id number] 2 [id number] SEE RESULT BELOW Name: GASTONNABILA Izabel : [address]: Adrian España MD Acct: [id number] Unit: [id number] AGE: 70 Location: [facility]: 10/01/16 SEX: F Status: REG REF SPEC: [id number] CUCA: 10/01/16-1144 [facility] DR: Adrian España MD REQ: [id number] RECD: 10/01/16 STATUS: ZAFAR GUDINO DR: Dakota Gardner SENIOR OPERATIONS MANAGER _ ORDERED: LEVEL 4/3 COMMENTS: [id number] FINAL DIAGNOSIS 1. Skin, left cheek superior, incisional biopsy: -- Pigmented actinic keratosis. 2. Skin, left cheek inferior medial, incisional biopsy: -- Seborrheic keratosis, irritated and inflamed. 3. Skin, left cheek inferior lateral, incisional biopsy: -- Seborrheic keratosis, inflamed. PRE-OPERATIVE DIAGNOSIS Solar lentigo versus lentigo maligna GROSS DESCRIPTION 1. The specimen is received in formalin labeled, Incisional Biopsy Pigmented Skin Lesion Left Cheek, Superior, and consists of a 0.4 x 0.3 x 0.2 cm hill-white skin which is inked, bisected and entirely submitted in one cassette. 2. The specimen is received in formalin labeled, Incisional Biopsy Skin Lesion Left Cheek, Inferior Medial, and consists of a 0.4 x 0.2 x 0.2 cm hill-white granular and focally indurated skin wedge with an eccentric prominent pore which is inked, bisected and entirely submitted in one cassette. 3. The specimen is received in formalin labeled, Incisional Biopsy Pigmented Skin Lesion Left Cheek, Inferior Lateral, and consists of a 0.5 x 0.3 x 0.2 cm patchy hill -brown centrally indurated skin wedge which is inked, bisected and entirely submitted in one cassette. CONTINUED ON NEXT PAGE * ML=Testing performed at [facility] DEPARTMENT OF PATHOLOGY, [address] [place] [address] Kervin Read M.D. Director NO # [id number] RUN DATE: 10/06/16 [facility] LAB LIVE PAGE 2 Patient: NABILA CLEARY [id number] (Continued) GROSS DESCRIPTION (Continued) Signed (signature on file) Fatuma Morrison MD 1331 END OF REPORT * ML=Testing performed at Main Lab DEPARTMENT OF PATHOLOGY, [address] [place] [address] Kervin Read M.D. Director NO # [id number] 4 Because ethnic data is not always readily available, this report includes an eGFR for both -Americans and non- Americans. The National Kidney Disease Education Program (NKDEP) does not endorse the use of the MDRD equation for patients that are not between the ages of 18 and 70, are , have extremes of body size, muscle mass, or nutritional status, or are non- or non-. According to the National Kidney Foundation, irrespective of diagnosis, the stage of the disease is based on the level of kidney function: Stage Description GFR(mL/min/1.73 m(2)) 1 Kidney damage with normal or decreased GFR 90 2 Kidney damage with mild decrease in GFR 60-89 3 Moderate decrease in GFR 30-59 4 Severe decrease in GFR 15-29 5 Kidney failure <15 (or dialysis) 5 FASTING 6 Desirable <150 Borderline high 150-199 High 200-499 Very High >500 7 Desirable <200 Borderline high 200-239 High >239 8 Low <40 Desirable: 40-60 High: >60 9 Desirable <100 Near Optimal 100-129 Borderline high 130-159 High 160-189 Very High >189 10 Because ethnic data is not always readily available, this report includes an eGFR for both -Americans and non- Americans. The National Kidney Disease Education Program (NKDEP) does not endorse the use of the MDRD equation for patients that are not between the ages of 18 and 70, are , have extremes of body size, muscle mass, or nutritional status, or are non- or non-. According to the National Kidney Foundation, irrespective of diagnosis, the stage of the disease is based on the level of kidney function: Stage Description GFR(mL/min/1.73 m(2)) 1 Kidney damage with normal or decreased GFR 90 2 Kidney damage with mild decrease in GFR 60-89 3 Moderate decrease in GFR 30-59 4 Severe decrease in GFR 15-29 5 Kidney failure <15 (or dialysis) 11 -- REFERENCE VALUE -- 25-HYDROXY D TOTAL (D2+D3) Optimum levels in the healthy population are 20-50, patients with bone disease may benefit from higher levels within this range. Test Performed by: [address] [address] Seat Trimmer: Brad Langley III, M.D. 12 Because ethnic data is not always readily available, this report includes an eGFR for both -Americans and non- Americans. The National Kidney Disease Education Program (NKDEP) does not endorse the use of the MDRD equation for patients that are not between the ages of 18 and 70, are , have extremes of body size, muscle mass, or nutritional status, or are non- or non-. According to the National Kidney Foundation, irrespective of diagnosis, the stage of the disease is based on the level of kidney function: Stage Description GFR(mL/min/1.73 m(2)) 1 Kidney damage with normal or decreased GFR 90 2 Kidney damage with mild decrease in GFR 60-89 3 Moderate decrease in GFR 30-59 4 Severe decrease in GFR 15-29 5 Kidney failure <15 (or dialysis) 13 Because ethnic data is not always readily available, this report includes an eGFR for both -Americans and non- Americans. The National Kidney Disease Education Program (NKDEP) does not endorse the use of the MDRD equation for patients that are not between the ages of 18 and 70, are , have extremes of body size, muscle mass, or nutritional status, or are non- or non-. According to the National Kidney Foundation, irrespective of diagnosis, the stage of the disease is based on the level of kidney function: Stage Description GFR(mL/min/1.73 m(2)) 1 Kidney damage with normal or decreased GFR 90 2 Kidney damage with mild decrease in GFR 60-89 3 Moderate decrease in GFR 30-59 4 Severe decrease in GFR 15-29 5 Kidney failure <15 (or dialysis) 14 Anion gap measurement may be of limited value in the presence of any alkalosis, especially in a combined acid base disorder. . 15 A metabolite of Naproxen, O-desmethylnaproxen, has been shown to interfere with the Jendrassik-Jono method for measuring total bilirubin. Samples from patients who have taken Naproxen have shown spurious elevation in total bilirubin levels. 16 Because ethnic data is not always readily available, this report includes an eGFR for both -Americans and non- Americans. The National Kidney Disease Education Program (NKDEP) does not endorse the use of the MDRD equation for patients that are not between the ages of 18 and 70, are , have extremes of body size, muscle mass, or nutritional status, or are non- or non-. According to the National Kidney Foundation, irrespective of diagnosis, the stage of the disease is based on the level of kidney function: Stage Description GFR(mL/min/1.73 m(2)) 1 Kidney damage with normal or decreased GFR 90 2 Kidney damage with mild decrease in GFR 60-89 3 Moderate decrease in GFR 30-59 4 Severe decrease in GFR 15-29 5 Kidney failure <15 (or dialysis) 17 CHOLESTEROL INTERPRETATION: Desirable: Less than 200 MG/DL Borderline-High Risk: 200-239 MG/DL High-Risk: 240 MG/DL and over 18 HDL INTERPRETATION: Undesirable: High Risk: Less than 40 MG/DL Desirable: Low Risk: Greater than 60 MG/DL 19 LDL INTERPRETATION: Low Risk Optimal Level: LDL Less than 100 MG/DL Near or Above Optimal: LDL 100-129 MG/DL Borderline High Risk: LDL 130-159 MG/DL High Risk: LDL 160-189 MG/DL Very High Risk: LDL Greater than 189 MG/DL 20 Interpretation: 10-24 (mild to moderate deficiency) -- REFERENCE VALUE -- 25-HYDROXY D TOTAL (D2+D3) Optimum levels in the normal population are 25-80 Test Performed by: [place] [address] Seat Trimmer: Brad Langley III, M.D. 21 Test Performed by: [place] [address] Seat Trimmer: Brad Langley III, M.D. 22 INTERPRETATION %CK-MB < 5% NOT SUPPORTIVE OF DIAGNOSIS OF CO 5 - <10% INDETERMINATE; SUGGEST SERIAL STUDIES IF CLINICALLY INDICATED 10% OR > CONSISTENT WITH DIAGNOSIS OF CO . 23 Anion gap measurement may be of limited value in the presence of any alkalosis, especially in a combined acid base disorder. . 24 A metabolite of Naproxen, O-desmethylnaproxen, has been shown to interfere with the Jenerrolik-Jono method for measuring total bilirubin. Samples from patients who have taken Naproxen have shown spurious elevation in total bilirubin levels. 25 Because ethnic data is not always readily available, this report includes an eGFR for both -Americans and non- Americans. The National Kidney Disease Education Program (NKDEP) does not endorse the use of the MDRD equation for patients that are not between the ages of 18 and 70, are , have extremes of body size, muscle mass, or nutritional status, or are non- or non-. According to the National Kidney Foundation, irrespective of diagnosis, the stage of the disease is based on the level of kidney function: Stage Description GFR(mL/min/1.73 m(2)) 1 Kidney damage with normal or decreased GFR 90 2 Kidney damage with mild decrease in GFR 60-89 3 Moderate decrease in GFR 30-59 4 Severe decrease in GFR 15-29 5 Kidney failure <15 (or dialysis) 26 New Reference Range and Interpretation effective 02/16/2002 TnI (ng/ml) INTERPRETATION Less Than 0.06 ng/mL NOT SUPPORTIVE OF DIAGNOSIS OF CO 0.06 - 0.50 ng/ml INDETERMINATE: SUGGEST SERIAL STUDIES IF CLINICALLY INDICATED. Greater than 0.5 ng/mL CONSISTENT WITH DIAGNOSIS OF CO . 27 Test Performed by: [facility] [address] [place] [address] Seat Trimmer: Brad Langley III, M.D. 28 -- REFERENCE VALUE -- 25-HYDROXY D TOTAL (D2+D3) Optimum levels in the normal population are 25-80 Test Performed by: [facility] [address] [place] [address] Seat Trimmer: Brad Langley III, M.D. 29 ---- RUN DATE: 07/13/06 [facility] LIVE PAGE 1 RUN TIME: 1521 Specimen Inquiry RUN USER: INTERFACE [id number] NABILA CLEARY 60/F <[facility] 07/12> ([id number]) VIC Allen MD, Celestino Nguyen -- Specimen: [id number] Spec Date: 07/11/[address]: Celestino Sierra MD Spec Type: SURGICAL P Received: 07/12/06 Copies to: Maryjo Joshi MD SPECIMEN L3 -L4 DISC HISTORY PRE-OP DIAGNOSIS: L3-L4 disc protrusion GROSS DESCRIPTION The specimen is received in formalin labelled Nabila Cleary, L3-L4 Disc and consists of multiple fragments of hill-mixon fibrous soft tissue measuring 2.5 x 1.5 x 0.6 cm. in aggregate. Switch House Operator sections, one cassette. DIAGNOSIS Intervertebral disc, L3-4, discectomy - Intervertebral disc material. Signed Electronically by: KERVIN READ MD 07/13/06 -- -- DEPARTMENT OF PATHOLOGY, [address] [place] [address] [facility] Permit #[id number] [place] II, M.D. Director Kervin Read M.D. Polygraph Examiner D jeremiahctor -- Procedures Date CPT Code Description Status 11/23/2017 86217 EKG Tracing & Interpretation Completed 03/01/2017 05721 Admin Of Inj Completed 09/02/2016 45119 Admin Of Inj Completed 03/05/2016 32616 Chemotherpy Admin Subcutaneous/Im Non-Hormonal Completed Anti-Neoplastic 08/19/2015 Mammogram Completed 08/19/2015 Bone Mineral Density Test Completed 10/10/2013 23871 EKG Tracing & Interpretation Completed 08/22/2013 Mammogram Completed 11/11/2011 Colonoscopy Completed 08/10/2011 68137 EKG Tracing & Interpretation Completed 04/13/2011 63359 Noninvasive Ear Or Pulse Oximetry For Oxygen Saturation Completed 04/13/2011 88992 EKG Tracing & Interpretation Completed 03/18/2011 Bone Mineral Density Test Completed 02/18/2011 Mammogram Completed 02/10/2011 27972 Noninvasive Ear Or Pulse Oximetry For Oxygen Saturation Completed 02/03/2011 83156 Noninvasive Ear Or Pulse Oximetry For Oxygen Saturation Completed 12/10/2010 29904 Noninvasive Ear Or Pulse Oximetry For Oxygen Saturation Completed 12/03/2010 47987 Inhalation TX For Acute Airway Obstruction Completed W/Nebulizer/Inhaler 12/03/2010 57009 Noninvasive Ear Or Pulse Oximetry For Oxygen Saturation Completed 03/25/2010 21615 EKG Tracing & Interpretation Completed 09/24/2008 Bone Mineral Density Test Completed 09/12/2008 97371 EKG Tracing & Interpretation Completed 04/26/2008 92379 Noninvasive Ear Or Pulse Oximetry For Oxygen Saturation Completed 04/26/2008 92977 Noninvasive Ear Or Pulse Oximetry For Oxygen Saturation Completed 04/26/2008 21152 Inhalation TX For Acute Airway Obstruction Completed W/Nebulizer/Inhaler 09/06/2007 Mammogram Completed 07/13/2006 65122 EKG Tracing & Interpretation Completed 07/13/2006 86670 EKG Tracing & Interpretation Completed 07/11/2006 66834 Laminotomy W/Decomp NRV RT,One Interspace,Lumbar Completed 06/23/2006 19942 EKG Tracing & Interpretation Completed 04/29/2006 Mammogram Completed Encounters Type Date Location Provider CPT E/M Dx Office Visit 11/14/2017 [place] [address] Z01.811 9:30a [facility] M16.11 M16.12 J44.9 R06.83 Z12.2 Office Visit 10/31/2017 3:00p [facility] Gu[facility] M.D. 43542 M25.551 Hussein M25.552 M16.11 M16.12 Office Visit 10/21/2017 4:00p [facility] Internal Medicine Jeni Gardner, N.P. 24824 H81.10 - [place] M25.552 J44.9 H61.21 Office Visit 03/16/2017 10:30a [facility] Garrison Mckeon, 75599 G35 [place] Z79.899 Office Visit 01/07/2017 11:00a [facility] Internal Medicine Shane Wing, 54906 R60.0 - [place] Willis Office Visit 12/28/2016 1:00p [facility] Internal Medicine Jeni Gardner, N.P. 11343 M54.31 - [place] J44.9 Office Visit 08/04/2016 2:20p [facility] Internal Medicine Jeni Gardner, N.P. 43078 M79.661 - [place] Z86.718 Office Visit 07/22/2016 10:40a [facility] Internal Medicine Jeni Gardner, N.P. 40836 M54.2 - [place] Office Visit 07/07/2016 10:30a [facility] Guzman M.D. 34076 M25.552 Of [place] M16.12 Office Visit 06/22/2016 10:00a [facility] Internal Jeni Gardner, N.P. 88951 S39.013A Medicine - [place] R10.32 Office Visit 04/16/2016 2:40p [facility] [place] [address] J06.9 [place] J44.9 Office Visit 03/02/2016 9:30a [facility] Noemi Juanitaeb, OLENA [address] G35 J44.9 S39.013A Z79.899 Office Visit 02/09/2016 11:20a [facility] Internal Medicine - Jeni Gardner, N.P. 28679 Z23 [place] S39.013A M81.0 Office Visit 10/24/2015 1:20p [facility] Internal Medicine Jeni Gardner, N.P. 96941 M81.0 - [place] Office Visit 08/12/2015 10:40a [facility] Internal Medicine Jeni Gardner, N.P. 70777 Z00.00 - [place] Z12.31 J44.9 E78.0 G35 M85.89 F17.201 F32.9 Z23 Office Visit 04/30/2015 4:20p [facility] [place] [address] J20.9 [place] J44.1 Office Visit 11/26/2014 10:00a [facility] Garrison Mckeon, 36371 340 [facility] Alba 780.79 Office Visit 06/07/2014 10:00a [facility] Internal Medicine - Jeni Gardner, N.P. 93801 496 [place] 724.5 733.00 720.2 Office Visit 06/05/2014 2:20p [facility] Internal Medicine Jeni Gardner, N.P. 64529 724.5 - [place] 720.2 728.85 Office Visit 04/10/2014 11:20a [facility] Internal Medicine Jeni Gardner, N.P. 63334 496 - [place] Office Visit 03/27/2014 9:00a [facility] Internal Medicine Jeni Gardner, N.P. 94992 496 - [place] Office Visit 03/21/2014 11:40a [facility] Internal Medicine Jeni Gardner, N.P. 86929 496 - [place] Office Visit 11/27/2013 9:00a [facility] Internal Medicine Jeni Gardner, N.P. 12032 272.4 - [place] 564.00 Office Visit 10/23/2013 2:15p [facility] Garrison Mckeon, 20976 340 [facility] M.D. Office Visit 10/10/2013 2:00p [facility] Internal Medicine Maryjo Joshi M.D., 66655 V70.0 - [place] FACP V70.0 V76.10 340 496 530.81 300.00 564.1 272.0 575.8 Office Visit 09/04/2013 11:20a [facility] Internal Medicine - Maryjo Joshi M.D., 78386 496 [place] FACP 530.81 575.8 Office Visit 08/16/2013 3:40p [facility] Internal Medicine - Maryjo Joshi M.D., 34729 496 [place] FACP 530.81 Office Visit 04/19/2013 4:00p [facility] Internal Medicine - Maryjo Joshi M.D., 48429 466.0 [place] FACP Office Visit 02/22/2013 9:00a [facility] Internal Medicine - Maryjo Joshi M.D., 80031 564.1 [place] FACP 496 300.00 340 Office Visit 11/06/2012 11:20a [facility] Internal Medicine Maryjo Joshi M.D., 94226 715.14 - [place] FACP 780.79 Office Visit 10/16/2012 11:20a [facility] Internal Medicine Maryjo Joshi M.D., 85318 780.79 - [place] FACP 785.6 Office Visit 10/04/2012 2:45p [facility] Garrison Mckeon, 43248 340 [facility] M.D. Office Visit 05/01/2012 9:40a [facility] Internal Medicine - Jeni Gardner, N.P. 98241 340 [place] 380.4 466.0 Office Visit 04/27/2012 10:40a [facility] Internal Medicine Jeni Gardner, N.P. 56691 466.0 - [place] 380.4 Office Visit 03/03/2012 3:40p [facility] Internal Medicine Jeni Gardner, N.P. 67619 466.0 - [place] Office Visit 11/08/2011 8:40a [facility] Internal Medicine Jeni Gardner, N.P. 69426 268.9 - [place] 272.4 305.1 Office Visit 09/06/2011 4:20p [facility] Internal Medicine Abida Wadsworth, 63694 528.6 - [place] Alba 923.10 Office Visit 08/10/2011 2:20p [facility] Internal Medicine - Maryjo Joshi M.D., 73083 V70.0 [place] FACP V76.10 496 733.90 305.1 401.1 780.52 v72.60 Office Visit 04/15/2011 10:00a DO Not Use Jeni Gardner, 54815 723.1 Senior [facility] N.P. Office Visit 04/13/2011 10:00a DO Not Use Maryjo Joshi M.D., 84433 786.59 [facility] FACP 723.1 Office Visit 03/15/2011 10:00a DO Not Use [facility] Maryjo oJshi, 99275 596.9 MWendyDWendy, FACP 300.00 305.1 733.90 Office Visit 02/10/2011 2:20p DO Not Use [facility] Maryjo Joshi M.D., 45294 496 FACP 305.1 300.00 780.79 V76.10 Office Visit 02/03/2011 2:00p DO Not Use [facility] Maryjo Joshi M.D., 74275 496 FACP v04.81 Office Visit 12/28/2010 10:00a DO Not Use [facility] Maryjo Joshi M.D., 76523 496 FACP 300.00 Office Visit 12/10/2010 3:40p DO Not Use [facility] Maryjo Joshi M.D., 39510 496 FACP Office Visit 12/03/2010 3:00p DO Not Use [facility] Maryjo Joshi M.D., 83552 496 FACP Office Visit 04/23/2010 2:45p DO Not Use [facility] Maryjo Joshi M.D., 21785 340 FACP 788.43 309.0 496 Office Visit 03/25/2010 9:00a DO Not Use Abida Wadsworth, 72570 786.50 [facility] Office Visit 12/02/2009 10:00a DO Not Use Maryjo Joshi M.D., 50276 496 [facility] FACP Office Visit 10/15/2009 4:15p DO Not Use Maryjo Joshi M.D., 81529 491.21 [facility] FACP Office Visit 09/03/2009 3:45p DO Not Use Jeni Gardner, 83145 466.0 [facility] N.P. Office Visit 04/24/2009 2:00p DO Not Use Maryjo Joshi M.D., 37479 496 [facility] FACP 340 V04.81 Office Visit 04/04/2009 4:30p DO Not Use Faye Medrano, 26998 708.9 Senior OperatorForeign [place] 496 340 Office Visit 03/19/2009 2:30p DO Not Use [facility] Jeni Gardner, 92443 461.9 N.P. Office Visit 10/02/2008 2:45p DO Not Use [facility] Maryjo Joshi M.D., [id number] FACP 340 780.79 Office Visit 09/12/2008 3:00p DO Not Use [facility] Maryjo Joshi 73433 V72.31 Alba, FACP 340 496 733.00 Office Visit 06/24/2008 2:00p DO Not Use Jeni Gardner, 95245 727.04 [facility] N.P. 719.41 Office Visit 06/19/2008 4:00p DO Not Use [facility] Jeni Gardner, 03275 466.0 N.P. Office Visit 04/26/2008 3:45p DO Not Use [facility] Maryjo Joshi M.D., 74681 496 FACP 466.0 Office Visit 04/15/2008 3:30p DO Not Use Jeni Gardner, 16015 611.72 [facility] [facility] Office Visit 02/16/2008 10:00a DO Not Use Maryjo Joshi M.D., 11333 496 [facility] FACP 478.30 V04.81 V03.82 Office Visit 10/27/2007 3:30p DO Not Use [facility] Maryjo Joshi, 64809 727.04 M.Viri, FACP 285.9 780.79 Office Visit 09/06/2007 4:00p DO Not Use Faye Medrano, 15221 729.5 [facility] M.D. 356.9 Office Visit 06/13/2007 3:45p DO Not Use Jeni Gardner, 72961 599.0 [facility] [facility] Office Visit 03/28/2007 3:30p [facility] Celestino Allen, 98209 724.2 Of Senior Operator M.D. Office Visit 02/07/2007 11:45a DO Not Use Jeni Gardner, 70247 564.00 [facility] N.P. 465.9 708.9 Office Visit 01/24/2007 3:30p [facility] Celestino Allen, 49457 Of Senior Operator M.D. Office Visit 12/29/2006 2:30p DO Not Use Maryjo Joshi M.D., 03032 780.79 [facility] FACP 340 709.9 724.02 Office Visit 12/08/2006 10:30a [facility] Celestino Allen, 90056 Of Senior Operator M.D. Office Visit 09/20/2006 12:00p DO Not Use Maryjo Joshi M.D., 83176 780.79 [facility] FACP Office Visit 09/09/2006 11:00a DO Not Use Maryjo Joshi M.D., 30958 340 [facility] FACP 780.79 733.90 Office Visit 08/04/2006 11:45a DO Not Use [facility] Maryjo Joshi M.D., 30804 340 FACP 733.00 Office Visit 07/21/2006 3:00p DO Not Use [facility] Maryjo Joshi M.D., 03913 340 FACP 724.2 Office Visit 07/08/2006 11:00a [facility] Celestino Allen, 69830 722.10 Neurosurgery M.D. Office Visit 07/04/2006 4:00p DO Not Use Jeni Gardner, 90515 720.2 [facility] N.P[facility] 719.45 340 564.00 Office Visit 06/23/2006 2:30p DO Not Use [facility] Maryjo Joshi, 02004 V70.0 M.D., FACP 340 V06.1 Office Visit 12/30/2005 11:15a DO Not Use [facility] Maryjo Joshi, 08273 610.0 M.D., FACP 340 272.4 Plan of Care Future Appointment(s):12/26/2017 1:00 pm - Mya Langston N.P. at [facility]12/08/2017 3:30 pm - ABBEY Ruiz [facility]12/08/2017 3:30 pm - PENELOPE Bey at [facility]12/08/2017 3:30 pm - Akosua Guzman M.D. at [facility]12/19/2017 1:15 pm - Akosua Guzman M.D. at [facility]03/21/2018 1:45 pm - Garrison Mckeon M.D. at [facility]11/25/2017 - Akosua Guzman M.D.M25.552 Pain in left hipFollow up:Follow up: 2 weeks after sufoczaG50.12 Unilateral primary osteoarthritis, left hip
--- OUTSIDE RECORDS SUMMARY | 2017-12-08 08:04 | XMS REPORT ---
:1945 External Reference #:[id number] Author Organization [facility] Address [address] [place] [address] [place] [address] Phone [phone] Care Team Providers Name Role Phone Akosua Guzman MD Care Team Information Dehydration Unit Operator Unavailable Abida Wadsworth MD Primary Care Physician Unavailable Payers Type Date Identification Numbers Payment Provider Subscriber Medicare Primary Effective: Policy Number: Medicare Nabila Cleary 2012 [id number] PayID: [id number] [address] [place] [address] Medigap Part B Effective: 2016 Policy Number: BS Facets Nabila Cleary [id number] Expires: 2017 PayID: [id number] [address] [place] [address] Medigap Part B Effective: 2012 Policy Number: BS Facets Nabila Cleary [id number] Expires: 2016 PayID: [id number] [address] [place] [address] Medigap Part B Effective: 2009 Policy Number: BS Of ОЛЕГY Nabila Cleary [id number] Expires: 2011 Group Number: [id number] [address] PayID: [id number] [place] [address] Commercial Policy Number: [id number] [facility] Nabila Cleary PayID: [id number] [address] [place] [address] Problems Date Description Provider Status Onset: 12/03/2010 Chronic obstructive lung disease Maryjo Joshi M.D., [facility] Active Onset: 12/03/2010 Multiple sclerosis Maryjo Joshi M.D., [facility] Active Onset: 03/15/2011 Tobacco user Maryjo Joshi M.D., [facility] Active Onset: 07/07/2016 Localized, primary osteoarthritis of [...] 1 dog in another apartment visits 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 mouth twice daily Nebulizer 07/18 Active Device 1unit use three s times a day Varn, N.P. as needed Copaxone 03/16 Active Soln 40mg/ml 36uni inject 1 Garrison S. Prefill ts syringe Mike Syringe under the M.D. skin three times a [...] Caps ER 150mg 90cap take 1 ER /2010 24HR s capsule by Varn, N.P. mouth once daily maximum daily dose of 1 Albuterol 12/10 Active Nebulizer (2.5mg/3M 60uni 1 vial via J44.9 Sulfate L) 0.083% ts nebulizer Varn, N.P. every 12 hours as needed Ipratropium 12/10 Active Solution 0.02% 60uni use twice J44.9 Jeni [place] ts daily in Varn, N.P. nebulizer as needed Aspirin 03/25 Active Tablets 81mg 1 by mouth once daily Alba Wadsworth Soma 12/01 Active Tablets 350mg 90tab 1 tab by Garrison Perez s mouth q6 Mike, hours as M.D. needed mdd 4 Vitamin C Active Chewtabs 500mg 1 po qd Fish Oil Active Capsules 1200mg 1 po qd Lyrica Active Capsules 100mg 90cap Take 1 s Tablet By Varn, N.P. Mouth 3 Times Daily. Max/Day=3 MDD 3 Tamiflu 08/08 Hx Capsules 75mg 10cap 1 by mouth s daily for 10 Varn, N.P. - days 08/18 Cipro 07/19 Hx Tablets 250mg 14tab one by nouth s twice daily Varn, N.P. - for [...] Thomas, - mouth twice M.D. 07/21 a day /2016 Azithromycin 04/16 Hx Tablets 250mg 6tabs 2 tabs by J44.9 Hugo mouth every Sue, COAL TRIMMER MACHINE OPERATOR - day x1 day, 04/21 1 tab by /2015 mouth every day x 4 days Venlafaxine HCL 08/11 Hx Caps ER 75mg 30cap 1 by mouth F32.9 Jeni ER /2015 24HR s every day Varn, N.P. - 03/15 Levaquin 05/15 Hx Tablets 500mg 10tab 1 by mouth Hugo s every day Sue, COAL TRIMMER MACHINE OPERATOR - 05/25 Prednisone 05/05 Hx Tablets 10mg 16tab take 4 tab s daily x 1 Sue COAL TRIMMER MACHINE OPERATOR - day then 3 05/15 tab daily 2 days, then 2 tab daily for 2 day, and 1 tab for 2 day. Azithromycin 04/30 Hx Tablets 250mg 6tabs 2 tabs by J20.9 mouth every Sue, COAL TRIMMER MACHINE OPERATOR - day x1 day, 05/06 1 tab by mouth every day x 4 days Tramadol HCL 06/05 Hx Tablets 50mg 30tab 1 tablet 724.5 s three to Varn, N.P. - four times 06/19 daily needed Spacer 03/27 Hx 2unit Use this 496 s with your Varn, N.P. - inhalers 11/25 Omeprazole 08/16 Hx Capsules 20mg 90cap [address] s every day Varn, N.P. - 11/25 [...] tsp q 466.0 its 4 hrs prn Kendra, N.P. - cough 10/04 Ergocalciferol 11/07 Hx Capsules [id number] 8caps one po once 268.9 weekly Deuce Joshi M.D., [facility] 01/06 Advair Diskus 06/16 Hx Aerosol 250-50mcg 180un inhale 1 /Dose its dose by Vargaviota, N.P. - mouth twice 10/21 a day /2017 Estrace 03/15 Hx Cream 0.1mg/GM 42.50 1 596.9 0gm application Madelyn, - two times M.D., FACP 04/27 Levofloxacin 02/03 Hx Tablets 500mg 7tabs 1 po qd 496 Deuce Joshi M.D., [facility] 04/15 Advair Diskus 02/03 Hx Aerosol 500-50mcg 1unit 1 puff bid /Dose s Deuce Joshi M.D., [facility] 06/16 Alprazolam 12/28 Hx Tablets 0.25mg 30tab 1 tab three 300.00 s times daily Madelyn, - as needed M.D., [facility] 08/09 Prednisone 12/10 Hx Tablets 10mg 15tab 1 tablet by 496 s mouth every Madelyn, - morning for M.D., [facility] 02/03 one week - then 1/2 tablet by mouth for one week - then 1/4 tablet by mouth for one week Robitussin ac 12/10 Hx Solution 4Oz 1-2 tsp at 496 bedtime as Madelyn, - needed M.D., [facility] 08/08 Wellbutrin SR 12/10 Hx Tablets ER 100mg 30tab 1 by mouth 496 12HR s every Am Deuce Joshi M.D., [facility] 02/03 Nebulizer 12/10 Hx use as J44.9 [...] Hx Start 1unit use as Pack s directed Deuce Joshi M.D., [facility] 03/25 Effexor XR 12/01 Hx Caps ER 150mg 90cap 1 tablet 24HR s daily Deuce Joshi M.D., FACP 02/22 Advair Diskus Hx 250-50mcg 3mont 1 inhalation Maryjo /0000 /Dose hs twice daily Deuce Joshi M.D., FACP 02/03 Combivent Hx 103-18mcg 1 Inhalation Madelyn, /0000 /Act Twice A Day MD Maryjo - as Needed 09/14 Cheratussin ac Hx 100-10mg/ 118ml 1-2 tsp po Maryjo /0000 5ML qhs prn Deuce Joshi M.D., [facility] 12/01 Azithromycin Hx 250mg 6unit 2 tabs po Maryjo /0000 s day 1 then 1 Madelyn, - po qd til M.DWendy, [facility] 12/01 Alendronate Hx Tabs 70mg 4tabs take 1 Maryjo Sodium /0000 tablet by Madelyn, - mouth every M.D., FACP /2011 Lipitor Hx Tablets 20mg 90tab 1 po [...] Code Status Date Vaccine Reaction Lot # 11651 Given 02/09/2016 Influenza Virus Vaccine, no reaction noted [id number] Quadrivalent, Split, .... hh Preservative Free 66171 Given 08/12/2015 Pneumococcal Conjugate [id number] Vaccine 13 Valent For Intramuscular Use Q2039 Given 03/05/2015 Flu Vaccine NOS 33412 Given 02/26/2014 Fluzone High Dose Q2037 Given 04/18/2012 Fluvirin Im 3Yrs And Older Q2037 Given 04/18/2012 Fluvirin Im 3Yrs And Older [id number] 92306 Given 04/18/2012 Zoster (Zostavax) [id number] 15925 Given 02/03/2011 Influenza Virus 3Yrs & Over [id number] 87042 Given 03/20/2010 Influenza Virus 3Yrs & Over [id number] 78384 Given 04/24/2009 Administration Swine Flu Shot 50522 Given 04/24/2009 Influenza Virus Vaccine, Pandemic Formulation 67583 Given 02/24/2009 Influenza Virus 3Yrs & Over 21918 Given 02/16/2008 Pneumonia Vaccine 78343 Given 02/16/2008 Pneumonia Vaccine 68835 Given 02/16/2008 Influenza Virus 3Yrs & Over 85575 Given 04/18/2007 Influenza Virus 3Yrs & Over 59337 Given 06/23/2006 Tdap - Tetanus/Diptheria/Acellular Pertussis 32724 Given 06/23/2006 Tdap - Tetanus/Diptheria/Acellular Pertussis 76934 Given 04/04/2006 Influenza Virus 3Yrs & Over Vital Signs Date Vital Result Comment 11/14/2017 Height 66.25 inches 5'6.25" Weight 110.00 [...] Test Date Test Result H/L Range Note Urine Culture And 07/20/2017 Urine Culture SEE RESULT 1 Sensitivities BELOW Laboratory test finding 10/01/2016 Surgical Pathology SEE RESULT 2, 3 BELOW CBC Auto Diff 02/06/2016 White Blood Count [...] 0-2 Nucleated Red Blood Cells % 0 Comp Metabolic Panel 02/06/2016 Sodium 137 mmol/L [...] Non- 105.2 >60 Egfr 135.2 >60 4 Laboratory test 11/13/2013 Hepatitis C Antibody Nonreactive [...] Non- 135.9 >60 Egfr 174.8 >60 12 Laboratory test finding 10/16/2012 TSH (Thyroid Stimulating 2.25 miu/mL 0.34-5.60 Horm) CBC With Manual Diff 10/16/2012 White Blood [...] 0.5 Erythrocyte Sed Rate 16 mm/Hr 0-40 Lipid Profile (Trig/Chol/HDL) 11/01/2011 Triglyceride 43 mg/dL 40-200 Cholesterol 246 mg/dL High Less Than 200 14 High Density Lipoprotein 90 mg/dL High 40-60 15 Cholesterol/HDL Ratio 2.73 AVERAGE 1-4.44 Low Density Lipoprotein 147 mg/dL High Less Than 100 16 Comp Metabolic Panel 11/01/2011 Sodium 134 mmol/L Low 135-145 Potassium 4.2 mmol/L 3.5-5.0 Chloride 102 mmol/L 101-111 Co2 (Carbon Dioxide) 29.0 mmol/L 22-32 Anion Gap 3.0 mmol/L 2-11 17 Glucose 101 mg/dL High 70-100 BUN 13 mg/dL 6-24 Creatinine 0.5 mg/dL Low 0.50-1.40 One Over Creatinine 2.00 BUN/Creatinine Ratio 26.0 High 8-20 Calcium 8.9 mg/dL 8.1-9.9 Total Protein 6.2 GM/DL 6.2-8.1 Albumin 3.9 GM/DL 3.2-5.2 Globulin 2.3 GM/DL 2-4 Albumin/Globulin Ratio 1.7 1-3 Bilirubin Total 0.7 mg/dL 0.4-1.5 18 Alkaline Phosphatase 64 U/L 30-110 Alt (SGPT) 20 U/L 14-54 Ast (Sgot) 23 U/L 12-42 eGFR Non- 124.2 > 60 eGFR 159.7 > 60 19 Laboratory test finding 11/01/2011 TSH 2.76 MIU/ML 0.34-5.60 Vitamin D, 25 Hydroxy 11/01/2011 25-Hydroxy Vitamin D2 <4.0 ng/mL () 25-Hydroxy Vitamin D3 22 ng/mL () 25-Hydroxy Vitamin D Total 22 ng/mL () 20 Vitamin D 1,25 And 11/01/2011 Vitamin D, 1,25 63 pg/mL 18-78 21 Vitamin D,2 Dihydroxy Laboratory test finding 04/13/2011 Troponin-I 0.01 NG/ML 0-0.06 22 CKMB 04/13/2011 CKMB In NG/ML 4.3 NG/ML High 0.3-4.0 % CKMB 3 %MB 0-9 23 Laboratory test finding 04/13/2011 CPK (Creatine Kinase) 134 U/L 0-170 CBC Auto Diff 04/13/2011 White Blood Count [...] Eosinophils 0.2 0-0.6 Abs Basophils 0.1 0-0.2 Comp Metabolic Panel 04/13/2011 Sodium 138 mmol/L 135-145 Potassium 3.9 mmol/L 3.5-5.0 Chloride 101 mmol/L 101-111 Co2 (Carbon Dioxide) 29.0 mmol/L 22-32 Anion Gap 8.0 mmol/L 2-11 24 Glucose 95 mg/dL 70-100 BUN 11 mg/dL 6-24 Creatinine 0.5 mg/dL Low 0.50-1.40 One Over Creatinine 2.00 BUN/Creatinine Ratio 22.0 High 8-20 Calcium 8.8 mg/dL 8.1-9.9 Total Protein 6.2 GM/DL 6.2-8.1 Albumin 3.8 GM/DL 3.2-5.2 Globulin 2.4 GM/DL 2-4 Albumin/Globulin Ratio 1.6 1-3 Bilirubin Total 0.5 mg/dL 0.4-1.5 25 Alkaline Phosphatase 70 U/L 30-110 Alt (SGPT) 24 U/L 14-54 Ast (Sgot) 28 U/L 12-42 eGFR Non- 124.2 > 60 eGFR 159.7 > 60 26 Vitamin D, 25 Hydroxy 03/19/2011 25-Hydroxy Vitamin D2 <4.0 ng/mL () 25-Hydroxy Vitamin D3 37 ng/mL () 25-Hydroxy Vitamin D Total 37 ng/mL () 27 Laboratory test 03/19/2011 TSH 2.89 MIU/ML 0.34-5.60 finding Vitamin D 1,25 And 03/19/2011 Vitamin D, 1,25 65 pg/mL 18-78 28 Vitamin D,2 Dihydroxy Surgical Pathology 07/11/2006 Surgical Pathology 29 <SEE NOTE> 1 SEE RESULT BELOW Name: NABILA CLEARY: [address]: Jeni Gardner NP Acct: [id number] Unit: [id number] AGE: 71 Location: [facility] Re07/20/17 SEX: F Status: REG REF SPEC: [id number] CUCA: 07/20/17-[address]: Jeni Gardner NP REQ: [id number] RECD: 07/20/17 STATUS: RAIZA GUDINO DR: Abida Wadsworth MD _ SOURCE: URINE SPDESC: ORDERED: Urine Culture Procedure Result Reported Site Urine Culture Final 07/22/17- 0854 ML Organism 1 ESCHERICHIA COLI Hardtner Count >100,000 (Many) CFU/ML 1. ESCHERICHIA COLI [...] Department for any additional antibiotic reporting. * - Main Lab . END OF REPORT DEPARTMENT OF PATHOLOGY, [address] [place] [address] Kervin Read M.D. Director [facility] # [id number] SEE RESULT BELOW Name: NABILA CLEARY : 1945 Attend : Adrian España MD Acct: [id number] Unit: [id number] AGE: 70 Location: [facility] Re10/01/16 SEX: F Status: REG REF SPEC: [id number] CUCA: 10/01/16-[address] [facility] [address]: Adrian España MD REQ: [id number] RECD: 10/01/16 STATUS: ZAFAR GUDINO DR: Dakota Gardner COAL TRIMMER MACHINE OPERATOR _ ORDERED: LEVEL 4/3 COMMENTS: [id number] FINAL DIAGNOSIS 1. Skin, left cheek superior, [...] ON NEXT PAGE * ML=Testing performed at Main Lab DEPARTMENT OF PATHOLOGY, [address] [place] [address] Kervin Read M.D. Director [facility] # [id number] RUN DATE: 10/06/16 [facility] LAB LIVE PAGE 2 Patient: NABILA CLEARY [id number] (Continued) GROSS DESCRIPTION (Continued) Signed (signature on file) Fatuma Morrison MD 1331 END OF REPORT * ML=Testing performed at Main Lab DEPARTMENT OF PATHOLOGY, [address] [place] [address] Kervin Read M.D. Director [facility] # [id number] 4 Because ethnic data is not always [...] levels within this range. Test Performed by: [place] [address] Escrow Manager: Brad Langley III, M.D. 12 Because ethnic [...] 5 Kidney failure <15 (or dialysis) 14 CHOLESTEROL INTERPRETATION: Desirable: Less than 200 MG/DL Borderline-High Risk: 200-239 MG/DL High-Risk: 240 MG/DL and over 15 HDL INTERPRETATION: Undesirable: High Risk: Less than 40 MG/DL Desirable: Low Risk: Greater than 60 MG/DL 16 LDL INTERPRETATION: Low Risk Optimal Level: LDL Less than 100 MG/DL Near or Above Optimal: LDL 100-129 MG/DL Borderline High Risk: LDL 130-159 MG/DL High Risk: LDL 160-189 MG/DL Very High Risk: LDL Greater than 189 MG/DL 17 Anion gap measurement may be of limited value in the presence of any alkalosis, especially in a combined acid base disorder. . 18 A metabolite of Naproxen, O-desmethylnaproxen, has been shown to interfere with the Jendrassik-Jono method for measuring total bilirubin. Samples from patients who have taken Naproxen have shown spurious elevation in total bilirubin levels. 19 Because ethnic data is not always readily [...] 15-29 5 Kidney failure <15 (or dialysis) 20 Interpretation: 10-24 (mild to moderate deficiency) -- REFERENCE VALUE -- 25-HYDROXY D TOTAL (D2+D3) Optimum levels in the normal population are 25-80 Test Performed by: [place] [address] Escrow Manager: Brad Langley III, M.D. 21 Test Performed by: [place] [address] Escrow Manager: Brad Langley III, M.D. 22 New Reference Range and Interpretation effective 02/16/2002 TnI (ng/ml) INTERPRETATION Less Than 0.06 ng/mL NOT SUPPORTIVE OF DIAGNOSIS OF OR 0.06 - 0.50 ng/ml INDETERMINATE: SUGGEST SERIAL STUDIES IF CLINICALLY INDICATED. Greater than 0.5 ng/mL CONSISTENT WITH DIAGNOSIS OF OR . 23 INTERPRETATION %CK-MB < 5% NOT SUPPORTIVE OF DIAGNOSIS OF OR 5 - <10% INDETERMINATE; SUGGEST SERIAL STUDIES IF CLINICALLY INDICATED 10% OR > CONSISTENT WITH DIAGNOSIS OF OR . 24 Anion gap measurement may be of limited value in the presence of any alkalosis, especially in a combined acid base disorder. . 25 A metabolite of Naproxen, O-desmethylnaproxen, has been shown to interfere with the Jendrassik-Jono method for measuring total bilirubin. Samples from patients who have taken Naproxen have shown spurious elevation in total bilirubin levels. 26 Because ethnic data is not always readily [...] 15-29 5 Kidney failure <15 (or dialysis) 27 -- REFERENCE VALUE -- 25-HYDROXY D TOTAL (D2+D3) Optimum levels in the normal population are 25-80 Test Performed by: [facility] D[facility] of Lab Med and Pathology [address] [place] [address] Escrow Manager: Brad Langley III, M.D. 28 Test Performed by: [facility] [address] [place] [address] Escrow Manager: Brad Langley III, M.D. 29 ---- RUN DATE: 07/13/06 [facility] NMI LIVE PAGE 1 RUN TIME: 1521 Specimen Inquiry RUN USER: INTERFACE [id number] NABILA CLEARY 60/F <[facility] 07/12> ([id number]) Celestino Stephen MD -- Specimen: [id number] SOUT Spec Date: 07/11/[address]: Celestino Sierra MD Spec Type: SURGICAL P Received: 02/27/07-0743 Copies to: Maryjo Joshi MD SPECIMEN L3 -L4 DISC HISTORY PRE-OP DIAGNOSIS: L3-L4 disc protrusion GROSS DESCRIPTION The specimen is received in formalin labelled Nabila Cleary, L3-L4 Disc and consists of multiple fragments of hill-mixon fibrous soft tissue measuring 2.5 x 1.5 x 0.6 cm. in aggregate. Teletypewriter Operator sections, one cassette. DIAGNOSIS Intervertebral disc, L3-4, discectomy - Intervertebral disc material. Signed Electronically by: KERVIN READ MD 07/13/06 -- -- DEPARTMENT OF PATHOLOGY, [address] [place] [address] [facility] Permit #[id number] [place] II, M.D. Director Kervin Read M.D. Teleprinter Carroll irector -- Procedures Date CPT Code Description Status 03/01/2017 55574 Admin Of Inj Completed 09/02/2016 99341 Admin Of Inj Completed 03/05/2016 25532 Chemotherpy Admin Subcutaneous/Im Non-Hormonal Completed Anti-Neoplastic 08/19/2015 Mammogram Completed 08/19/2015 Bone Mineral Density Test Completed 10/10/2013 34373 EKG Tracing & Interpretation Completed 08/22/2013 Mammogram Completed 11/11/2011 Colonoscopy Completed 08/10/2011 38213 EKG Tracing & Interpretation Completed 04/13/2011 27814 Noninvasive Ear Or Pulse Oximetry For Oxygen Saturation Completed 04/13/2011 35123 EKG Tracing & Interpretation Completed 03/18/2011 Bone Mineral Density Test Completed 02/18/2011 Mammogram Completed 02/10/2011 86960 Noninvasive Ear Or Pulse Oximetry For Oxygen Saturation Completed 02/03/2011 26975 Noninvasive Ear Or Pulse Oximetry For Oxygen Saturation Completed 12/10/2010 95446 Noninvasive Ear Or Pulse Oximetry For Oxygen Saturation Completed 12/03/2010 23869 Inhalation TX For Acute Airway Obstruction Completed W/Nebulizer/Inhaler 12/03/2010 00308 Noninvasive Ear Or Pulse Oximetry For Oxygen Saturation Completed 03/25/2010 66830 EKG Tracing & Interpretation Completed 09/24/2008 Bone Mineral Density Test Completed 09/12/2008 42476 EKG Tracing & Interpretation Completed 04/26/2008 95232 Noninvasive Ear Or Pulse Oximetry For Oxygen Saturation Completed 04/26/2008 18944 Noninvasive Ear Or Pulse Oximetry For Oxygen Saturation Completed 04/26/2008 17462 Inhalation TX For Acute Airway Obstruction Completed W/Nebulizer/Inhaler 09/06/2007 Mammogram Completed 07/13/2006 76630 EKG Tracing & Interpretation Completed 07/13/2006 07239 EKG Tracing & Interpretation Completed 07/11/2006 15429 Laminotomy W/Decomp NRV RT,One Interspace,Lumbar Completed 06/23/2006 06797 EKG Tracing & Interpretation Completed 04/29/2006 Mammogram Completed Encounters Type Date Location Provider CPT E/M Dx Office Visit 10/31/2017 [facility] Akosua Guzman M.D. 30178 M25.551 3:00p Of Hussein M25.552 M16.11 M16.12 Office Visit 10/21/2017 4:00p [facility] Internal Medicine Jeni Gardner N.Patricio 82036 H81.10 [facility] M25.552 J44.9 H61.21 Office Visit 03/16/2017 10:30a [facility] Garrison Mckeon, 88776 G35 MWaldemar Z79.899 Office Visit 01/07/2017 11:00a [facility] Internal Medicine Shane Wing, 94385 R60.0 - Elayne Willis Office Visit 12/28/2016 1:00p [facility] Internal Medicine Jeni Gardner, N.P. 75824 M54.31 - [place] J44.9 Office Visit 08/04/2016 2:20p [facility] Internal Medicine Jeni Gardner, N.P. 45737 M79.661 - [place] Z86.718 Office Visit 07/22/2016 10:40a [facility] Internal Medicine Jeni Gardner, N.P. 28928 M54.2 - [place] Office Visit 07/07/2016 10:30a [facility] Akosua Guzman M.D. 17575 M25.552 Of [place] M16.12 Office Visit 06/22/2016 10:00a [facility] Internal Jeni Gardner, N.P. 85920 S39.013A Medicine [facility] R10.32 Office Visit 04/16/2016 2:40p [facility] [place] [address] J06.9 [place] J44.9 Office Visit 03/02/2016 9:30a [facility] Noemi Mookie, [place] 68654 G35 J44.9 S39.013A Z79.899 Office Visit 02/09/2016 11:20a [facility] Internal Medicine - Jeni Gardner, N.P. 74134 Z23 [place] S39.013A M81.0 Office Visit 10/24/2015 1:20p [facility] Internal Medicine Jeni Gardner, N.P. 93625 M81.0 - [place] Office Visit 08/12/2015 10:40a [facility] Internal Medicine Jeni Gardner, N.P. 68773 Z00.00 - [place] Z12.31 J44.9 E78.0 G35 M85.89 F17.201 F32.9 Z23 Office Visit 04/30/2015 4:20p [facility] Internal Medicine - Hugo Rogers, COAL TRIMMER MACHINE OPERATOR 48357 J20.9 [place] J44.1 Office Visit 11/26/2014 10:00a [facility] Garrison Mckeon, 59067 340 Services Of [facility] M.D. 780.79 Office Visit 06/07/2014 10:00a [facility] Internal Medicine - Jeni Gardner, N.P. 74574 496 [place] 724.5 733.00 720.2 Office Visit 06/05/2014 2:20p [facility] Internal Medicine Jeni Gardner, N.P. 01052 724.5 - [place] 720.2 728.85 Office Visit 04/10/2014 11:20a [facility] Internal Medicine Jeni Gardner, N.P. 21487 496 - [place] Office Visit 03/27/2014 9:00a [facility] Internal Medicine Jeni Gardner, N.P. 54876 496 - [place] Office Visit 03/21/2014 11:40a [facility] Internal Medicine Jeni Gardner, N.P. 66454 496 - [place] Office Visit 11/27/2013 9:00a [facility] Internal Medicine Jeni Gardner, N.P. 68753 272.4 - [place] 564.00 Office Visit 10/23/2013 2:15p [facility] Garrison Mckeon, 75983 340 Services Of Oj Rodriguez.Carroll. Office Visit 10/10/2013 2:00p [facility] Internal Medicine Maryjo Joshi M.D., 82131 V70.0 - [place] FACP V70.0 V76.10 340 496 530.81 300.00 564.1 272.0 575.8 Office Visit 09/04/2013 11:20a [facility] Internal Medicine - Maryjo Joshi M.D., 24046 496 [place] FACP 530.81 575.8 Office Visit 08/16/2013 3:40p [facility] Internal Medicine - Maryjo Joshi M.D., 51076 496 [place] FACP 530.81 Office Visit 04/19/2013 4:00p [facility] Internal Medicine - Maryjo Joshi M.D., 63720 466.0 [place] FACP Office Visit 02/22/2013 9:00a [facility] Internal Medicine - Maryjo Joshi M.D., 81570 564.1 [place] FACP 496 300.00 340 Office Visit 11/06/2012 11:20a [facility] Internal Medicine Maryjo Joshi M.D., 97587 715.14 - [place] FACP 780.79 Office Visit 10/16/2012 11:20a [facility] Internal Medicine Maryjo Joshi M.D., 81887 780.79 - [place] FACP 785.6 Office Visit 10/04/2012 2:45p [facility] Garrison Mckeon, 45182 340 Services Of Gas Engine Operator Alba Office Visit 05/01/2012 9:40a [facility] Internal Medicine - Jeni Gardner, N.P. 08653 340 [place] 380.4 466.0 Office Visit 04/27/2012 10:40a [facility] Internal Medicine Jeni Gardner, N.P. 32956 466.0 - [place] 380.4 Office Visit 03/03/2012 3:40p [facility] Internal Medicine Jeni Gardner, N.P. 85539 466.0 - [place] Office Visit 11/08/2011 8:40a [facility] Internal Medicine Jeni Gardner, N.P. 29561 268.9 - [place] 272.4 305.1 Office Visit 09/06/2011 4:20p [facility] Internal Medicine Abida Cotton, 78435 528.6 - [place] M.D. 923.10 Office Visit 08/10/2011 2:20p [facility] Internal Medicine - Maryjo Joshi M.D., 73352 V70.0 [place] FACP V76.10 496 733.90 305.1 401.1 780.52 v72.60 Office Visit 04/15/2011 10:00a DO Not Use Jeni Gardner, 96282 723.1 [employer] N.P. Office Visit 04/13/2011 10:00a DO Not Use Maryjo Joshi M.D., 69732 786.59 [employer] FACP 723.1 Office Visit 03/15/2011 10:00a DO Not Use [employer] Maryjo Joshi, 67748 596.9 M.D., FACP 300.00 305.1 733.90 Office Visit 02/10/2011 2:20p DO Not Use [employer] Maryjo Joshi M.D., 06981 496 FACP 305.1 300.00 780.79 V76.10 Office Visit 02/03/2011 2:00p DO Not Use [employer] Maryjo Joshi M.D., 43056 496 FACP v04.81 Office Visit 12/28/2010 10:00a DO Not Use Gas Engine [employer] Maryjo Joshi M.D., 13228 496 FACP 300.00 Office Visit 12/10/2010 3:40p DO Not Use [employer] Maryjo Joshi M.D., 79677 496 FACP Office Visit 12/03/2010 3:00p DO Not Use [employer] Maryjo Joshi M.D., 76188 496 FACP Office Visit 04/23/2010 2:45p DO Not Use [employer] Maryjo Joshi M.D., 06380 340 FACP 788.43 309.0 496 Office Visit 03/25/2010 9:00a DO Not Use Abida Wadsworth, 40713 786.50 [employer] [place] Office Visit 12/02/2009 10:00a DO Not Use Maryjo Joshi M.D., 62060 496 [employer] FACP Office Visit 10/15/2009 4:15p DO Not Use Maryjo Joshi M.D., 85317 491.21 [employer] FACP Office Visit 09/03/2009 3:45p DO Not Use Jeni Gardner, 32510 466.0 [employer] N.P. Office Visit 04/24/2009 2:00p DO Not Use Maryjo Joshi M.D., 99183 496 [employer] FACP 340 V04.81 Office Visit 04/04/2009 4:30p DO Not Use Faye Medrano, 74216 708.9 [employer] M.D. 496 340 Office Visit 03/19/2009 2:30p DO Not Use [employer] Jeni Gardner, 88719 461.9 N.P. Office Visit 10/02/2008 2:45p DO Not Use [employer] Maryjo Joshi M.D., 61595 496 FACP 340 780.79 Office Visit 09/12/2008 3:00p DO Not Use [employer] Maryjo Joshi, 10134 V72.31 M.DWendy, FACP 340 496 733.00 Office Visit 06/24/2008 2:00p DO Not Use Jeni Gardner, 13926 727.04 [employer] N.P. 719.41 Office Visit 06/19/2008 4:00p DO Not Use [employer] Jein Gardner, 05009 466.0 N.P. Office Visit 04/26/2008 3:45p DO Not Use [employer] Maryjo Joshi M.D., 68040 496 FACP 466.0 Office Visit 04/15/2008 3:30p DO Not Use Jeni Gardner, 93474 611.72 [employer] N.P. Office Visit 02/16/2008 10:00a DO Not Use Maryjo Joshi M.D., 36903 496 [employer] FACP 478.30 V04.81 V03.82 Office Visit 10/27/2007 3:30p DO Not Use [employer] Maryjo Joshi, 90674 727.04 M.DWendy, FACP 285.9 780.79 Office Visit 09/06/2007 4:00p DO Not Use Faye Medrano, 92680 729.5 [employer] M.D. 356.9 Office Visit 06/13/2007 3:45p DO Not Use Jeni Gardner, 30182 599.0 [employer] N.P. Office Visit 03/28/2007 3:30p [facility] Celestino Allen, 20512 724.2 Of [employer] M.D. Office Visit 02/07/2007 11:45a DO Not Use Jeni Gardner, 93021 564.00 [employer] N.P. 465.9 708.9 Office Visit 01/24/2007 3:30p [facility] Celestino Allen, 39046 Of [facility] M.D. Office Visit 12/29/2006 2:30p DO Not Use Maryjo Joshi M.D., 14417 780.79 [employer] FACP 340 709.9 724.02 Office Visit 12/08/2006 10:30a [facility] Celestino Allen, 64819 [facility] M.D. Office Visit 09/20/2006 12:00p DO Not Use Maryjo Joshi M.D., 65507 780.79 [employer] FACP Office Visit 09/09/2006 11:00a DO Not Use Maryjo Joshi M.D., 74829 340 [employer] FACP 780.79 733.90 Office Visit 08/04/2006 11:45a DO Not Use [employer] Maryjo Joshi M.D., 46162 340 FACP 733.00 Office Visit 07/21/2006 3:00p DO Not Use [employer] Maryjo Joshi M.D., 37438 340 FACP 724.2 Office Visit 07/08/2006 11:00a [facility] Celestino Allen, 49453 722.10 Neurosurgery M.D. Office Visit 07/04/2006 4:00p DO Not Use Jeni Gardner, 69268 720.2 [employer] N.P. 719.45 340 564.00 Office Visit 06/23/2006 2:30p DO Not Use [employer] Maryjo Joshi, 89722 V70.0 M.D., FACP 340 V06.1 Office Visit 12/30/2005 11:15a DO Not Use [employer] Maryjo Joshi, 50318 610.0 M.D., FACP 340 272.4 Plan of Care Future Appointment(s):12/26/2017 1:00 pm - Mya Langston, N.P. at [facility]11/23/2017 2:00 pm - Hugo Rogers NP at [facility] Internal Medicine [facility]12/08/2017 11:30 am - ABBEY Ruiz at [facility]..12/08/2017 11:30 am - PENELOPE Bey at [facility]..12/08/2017 11:30 am - Akosua Guzman M.D. at [facility]..12/19/2017 1:15 pm - Akosua Guzman M.D. at [facility]..11/25/2017 10:45 am - Akosua Guzman M.D. at [facility].03/21/2018 1:45 pm - Garrison Mckeon M.D. at [facility]11/14/2017 - Laquita Lowe MDJ44.9 Chronic obstructive pulmonary disease, unspecifiedNew Labs:Alpha 1 Antitrypsin A1aNew Orders:PFTW/Spirometry Vol Pre/Post Bronchdilat Dlco CompleteFollow up:3 dutjlG38.811 Encounter for preprocedural respiratory ppbfvnmngspD67.83 SnoringNew Orders:Home Sleep JeiveywT39.2 Encntr screen for malignant neoplasm of respiratory organsNew Xrays:CT Lung Screening-Low Dose
--- OUTSIDE RECORDS SUMMARY | 2017-12-08 08:04 | XMS REPORT ---
:1945 External Reference #:[id number] Author Organization [facility] Address [address] [place] [address] Phone [phone] Care Team Providers Name Role Phone Abida Wadsworth MD Primary Care Physician Unavailable Payers Type Date Identification Numbers Payment Provider Subscriber Medicare Primary Effective: Policy Number: Medicare Nabila Cleary 2012 [id number] PayID: [id number] [address] [place] [address] Medigap Part B Effective: 2016 Policy Number: BS Facets Nabila Cleary [id number] Expires: 2017 PayID: [id number] [address] [address] [place] [address] Medigap Part B Effective: 2012 Policy Number: BS Facets Nabila Cleary [id number] Expires: 2016 PayID: [id number] [address] [address] [place] [address] Medigap Part B Effective: 2009 Policy Number: BS Of ОЛЕГY Nabila Cleary [id number] Expires: 2011 Group Number: [id number] [address] PayID: [id number] [place] [address] Commercial Policy Number: [id number] [facility] Nabila Cleary PayID: [id number] [address] [place] [address] Problems Date Description Provider Status Onset: 12/03/2010 Chronic obstructive lung disease Maryjo Joshi M.D., [facility] Active Onset: 12/03/2010 Multiple sclerosis [facility] Active Onset: 03/15/2011 Tobacco user Maryjo Joshi M.D., [facility] Active Onset: 07/07/2016 Localized, primary osteoarthritis [...] 1 dog in another apartment visits 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 nebulizer as needed Aspirin 03/25 Active Tablets 81mg 1 by mouth once daily Alba Wadsworth Soma 12/01 Active Tablets 350mg 90tab 1 tab by Garrison Perez s mouth q6 [place], hours as M.D. needed mdd 4 Vitamin [...] tabs by J44.9 Hugo mouth every Sue TIRE CENTER MANAGER - day x1 day, 04/21 1 [...] 4 tab s daily x 1 Sue TIRE CENTER MANAGER - day then 3 05/15 tab daily 2 days, then 2 tab daily for 2 day, and 1 tab for 2 day. Azithromycin 04/30 Hx Tablets 250mg 6tabs 2 tabs by J20.9 mouth every Sue, TIRE CENTER MANAGER - day x1 day, 05/06 1 [...] - cough 10/04 Ergocalciferol 11/07 Hx Capsules 97957Kbep 8caps one po once 268.9 weekly Deuce [facility]hi M.D., [facility] 01/06 Advair Diskus 06/16 Hx Aerosol 250-50mcg 180un inhale 1 /Dose its dose by [place], N.P. - mouth twice 10/21 a day /2017 Estrace 03/15 Hx Cream 0.1mg/GM 42.50 1 596.9 0gm application Madelyn, - two times M.D., FACP 04/27 Levofloxacin 02/03 Hx Tablets 500mg 7tabs 1 po qd 496 Deuce Joshi [facility].D., [facility] 04/15 Advair Diskus 02/03 Hx Aerosol 500-50mcg 1unit 1 puff bid /Dose s Deuce Joshi M.D., [facility] 06/16 Alprazolam 12/28 Hx Tablets 0.25mg 30tab 1 tab three 300.00 s times daily Madelyn, - as needed M.D., FACP 08/09 Prednisone 12/10 Hx Tablets 10mg 15tab 1 tablet by 496 s mouth every Madelyn, - morning for M.D., [facility] 02/03 one week - then 1/2 tablet by mouth for one week - then 1/4 tablet by mouth for one week Robitussin ac 12/10 Hx Solution 4Oz 1-2 tsp at 496 bedtime as Madelyn, - needed M.D., [facility] 08/08 Wellbutrin SR 12/10 Hx Tablets ER 100mg 30tab 1 by mouth 496 12HR s every Am Deuce Joshi M.D., [facility] 02/03 Nebulizer 12/10 Hx use as J44.9 [...] use as Pack s Deuce York M.D., [facility] 03/25 Effexor XR 12/01 Hx Caps ER 150mg 90cap 1 tablet 24HR s daily Deuce Joshi M.D., [facility] 02/22 Advair Diskus Hx 250-50mcg 3mont 1 inhalation Maryjo /0000 /Dose hs twice daily Deuce Joshi M.D., FACP 02/03 Combivent Hx 103-18mcg 1 Inhalation Madelyn, /0000 /Act Twice A Day MD Maryjo - as Needed 09/14 Cheratussin ac Hx 100-10mg/ 118ml 1-2 tsp po Maryjo /0000 5ML qhs prn Deuce Joshi M.D., [facility] 12/01 Azithromycin Hx 250mg 6unit 2 [...] Code Status Date Vaccine Reaction Lot # 55517 Given 02/09/2016 Influenza Virus Vaccine, no reaction noted [id number] Quadrivalent, Split, .... hh Preservative Free 97553 Given 08/12/2015 Pneumococcal Conjugate [id number] Vaccine 13 Valent For Intramuscular Use Q2039 Given 03/05/2015 Flu Vaccine NOS 38372 Given 02/26/2014 Fluzone High Dose Q2037 Given 04/18/2012 Fluvirin Im 3Yrs And Older Q2037 Given 04/18/2012 Fluvirin Im 3Yrs And Older [id number] 79175 Given 04/18/2012 Zoster (Zostavax) [id number] 72669 Given 02/03/2011 Influenza Virus 3Yrs & Over [id number] 07561 Given 03/20/2010 Influenza Virus 3Yrs & Over [id number] 60631 Given 04/24/2009 Administration Swine Flu Shot 84616 Given 04/24/2009 Influenza Virus Vaccine, Pandemic Formulation 80312 Given 02/24/2009 Influenza Virus 3Yrs & Over 66968 Given 02/16/2008 Pneumonia Vaccine 65479 Given 02/16/2008 Pneumonia Vaccine 52746 Given 02/16/2008 Influenza Virus 3Yrs & Over 86460 Given 04/18/2007 Influenza Virus 3Yrs & Over 40275 Given 06/23/2006 Tdap - Tetanus/Diptheria/Acellular Pertussis 25414 Given 06/23/2006 Tdap - Tetanus/Diptheria/Acellular Pertussis 46303 Given 04/04/2006 Influenza Virus 3Yrs & Over Vital Signs Date Vital Result Comment 11/23/2017 Height 66.25 inches 5'6.25" Weight 110.00 [...] 1 SEE RESULT BELOW Name: NABILA CLEARY : [address]: Jeni Gardner NP Acct: [id number] Unit: [id number] AGE: 71 Location: [facility] Re07/20/17 SEX: F Status: REG REF SPEC: [id number] CUCA: 07/20/17 [facility] DR: Jeni Gardner NP REQ: [id number] RECD: 07/20/17 STATUS: RAIZA GUDINO DR: Abida Wadsworth MD _ SOURCE: URINE SPDESC: ORDERED: Urine Culture Procedure Result Reported Site Urine Culture Final 07/22/17- 0854 ML Organism 1 ESCHERICHIA COLI [place] Count >100,000 (Many) CFU/ML 1. ESCHERICHIA COLI [...] . END OF REPORT DEPARTMENT OF PATHOLOGY, [address] [place] [address] Kervin Read M.D. Director [facility] # [id number] SEE RESULT BELOW Name: NABILA CLEARY : [address]: Adrian España MD Acct: [id number] Unit: [id number] AGE: 70 Location: [facility] Re10/01/16 SEX: F Status: REG REF SPEC: [id number] CUCA: 10/01/16-[address]: Adrian España MD REQ: [id number] RECD: 10/01/16 STATUS: ZAFAR GUDINO DR: Dakota Gardner TIRE CENTER MANAGER _ ORDERED: LEVEL 4/3 COMMENTS: [id number] FINAL DIAGNOSIS 1. Skin, left cheek superior, [...] performed at Main Lab DEPARTMENT OF PATHOLOGY, [address] [place] [address] Kervin Read M.D. Director [facility] # [id number] RUN DATE: 10/06/16 [facility] LAB LIVE PAGE 2 Patient: NABILA CLEARY [id number] (Continued) GROSS DESCRIPTION (Continued) Signed (signature on file) Fatuma Morrison MD 1331 END OF REPORT * ML=Testing performed at Main Lab DEPARTMENT OF PATHOLOGY, [address] [place] [address] Kervin Read M.D. Director [facility] # [id number] 4 Because ethnic data is not always [...] levels within this range. Test Performed by: [facility] [address] [address] C Iron Worker: Brad Langley III, M.D. 12 Because ethnic [...] normal population are 25-80 Test Performed by: [place] [address] C Iron Worker: Brad Langley III, M.D. 21 Test Performed by: [place] [address] C Iron Worker: Brad Langley III, M.D. 22 INTERPRETATION %CK-MB < 5% NOT SUPPORTIVE OF DIAGNOSIS OF DC 5 - <10% INDETERMINATE; SUGGEST SERIAL STUDIES IF CLINICALLY INDICATED 10% OR > CONSISTENT WITH DIAGNOSIS OF DC . 23 Anion gap measurement may be of limited value in the presence of any alkalosis, especially in a combined acid base disorder. . 24 A metabolite of Naproxen, O-desmethylnaproxen, has been shown to interfere with the Jendrassik-Mcgregor method for measuring total bilirubin. Samples from [...] 0.06 ng/mL NOT SUPPORTIVE OF DIAGNOSIS OF DC 0.06 - 0.50 ng/ml INDETERMINATE: SUGGEST SERIAL STUDIES IF CLINICALLY INDICATED. Greater than 0.5 ng/mL CONSISTENT WITH DIAGNOSIS OF DC . 27 Test Performed by: [facility] Dpt of Lab Med and Pathology [address] [place] [address] C Iron Worker: Brad Langley III, M.D. 28 -- REFERENCE VALUE -- 25-HYDROXY D TOTAL (D2+D3) Optimum levels in the normal population are 25-80 Test Performed by: [facility] Dpt of Lab Med and Pathology [address] [place] [address] C Iron Worker: Brad Langley III, M.D. 29 ---- RUN DATE: 07/13/06 [facility] NMI LIVE PAGE 1 RUN TIME: 1521 Specimen Inquiry RUN USER: INTERFACE [id number] NABILA CLEARY 60/F <[facility] 07/12> ([id number]) Celestino Stephen MD -- Specimen: [id number] Spec Date: 07/11/[address]: Celestino Sierra MD Spec Type: SURGICAL P Received: 07/12/06 Copies to: Maryjo Joshi MD SPECIMEN L3 -L4 DISC HISTORY PRE-OP DIAGNOSIS: L3-L4 disc protrusion GROSS DESCRIPTION The specimen is received in formalin labelled Nabilafrancis Cleary, L3-L4 Disc and consists of multiple fragments of hill-mixon fibrous soft tissue measuring 2.5 x 1.5 x 0.6 cm. in aggregate. Accounting Methods Analyst sections, one cassette. DIAGNOSIS Intervertebral disc, L3-4, discectomy - Intervertebral disc material. Signed Electronically by: KERVIN READ MD 07/13/06 -- -- DEPARTMENT OF PATHOLOGY, [address] [place] [address] [facility] Permit #[id number] [place] II, M.D. Director Alba Stuartctor -- Procedures Date CPT Code Description Status 03/01/2017 90470 Admin Of Inj Completed 09/02/2016 66420 Admin Of Inj Completed 03/05/2016 44874 Chemotherpy Admin Subcutaneous/Im Non-Hormonal Completed Anti-Neoplastic 08/19/2015 Mammogram Completed 08/19/2015 Bone Mineral Density Test Completed 10/10/2013 54695 EKG Tracing & Interpretation Completed 08/22/2013 Mammogram Completed 11/11/2011 Colonoscopy Completed 08/10/2011 84855 EKG Tracing & Interpretation Completed 04/13/2011 16114 Noninvasive Ear Or Pulse Oximetry For Oxygen Saturation Completed 04/13/2011 01678 EKG Tracing & Interpretation Completed 03/18/2011 Bone Mineral Density Test Completed 02/18/2011 Mammogram Completed 02/10/2011 83551 Noninvasive Ear Or Pulse Oximetry For Oxygen Saturation Completed 02/03/2011 86238 Noninvasive Ear Or Pulse Oximetry For Oxygen Saturation Completed 12/10/2010 84482 Noninvasive Ear Or Pulse Oximetry For Oxygen Saturation Completed 12/03/2010 63405 Inhalation TX For Acute Airway Obstruction Completed W/Nebulizer/Inhaler 12/03/2010 13731 Noninvasive Ear Or Pulse Oximetry For Oxygen Saturation Completed 03/25/2010 86711 EKG Tracing & Interpretation Completed 09/24/2008 Bone Mineral Density Test Completed 09/12/2008 91411 EKG Tracing & Interpretation Completed 04/26/2008 57325 Noninvasive Ear Or Pulse Oximetry For Oxygen Saturation Completed 04/26/2008 82207 Noninvasive Ear Or Pulse Oximetry For Oxygen Saturation Completed 04/26/2008 57249 Inhalation TX For Acute Airway Obstruction Completed W/Nebulizer/Inhaler 09/06/2007 Mammogram Completed 07/13/2006 48584 EKG Tracing & Interpretation Completed 07/13/2006 96402 EKG Tracing & Interpretation Completed 07/11/2006 44377 Laminotomy W/Decomp NRV RT,One Interspace,Lumbar Completed 06/23/2006 40718 EKG Tracing & Interpretation Completed 04/29/2006 Mammogram Completed Encounters Type Date Location Provider CPT E/M Dx Office Visit 11/14/2017 Pul[place] [address] Z01.811 9:30a Services Of [facility] M16.11 M16.12 J44.9 R06.83 Z12.2 Office Visit 10/31/2017 3:00p [facility] Of Akosua Guzman M.D. 03238 M25.551 CXenia M25.552 M16.11 M16.12 Office Visit 10/21/2017 4:00p [facility] Internal Medicine Jeni Gardner, N.P. 24947 H81.10 - [facility] M25.552 J44.9 H61.21 Office Visit 03/16/2017 10:30a [facility] Garrison Mckeon, 43795 G35 MWaldemar Z79.899 Office Visit 01/07/2017 11:00a [facility] Internal Medicine Shane Wing, 08081 R60.0 - Elayne Willis Office Visit 12/28/2016 1:00p [facility] Internal Medicine Jeni Gardner, N.P. 11587 M54.31 - [facility] J44.9 Office Visit 08/04/2016 2:20p [facility] Internal Medicine Jeni Gardner, N.P. 88536 M79.661 - [facility] Z86.718 Office Visit 07/22/2016 10:40a [facility] Internal Medicine Jeni Gardner, N.P. 13919 M54.2 - [facility] Office Visit 07/07/2016 10:30a Orthopedic Services Akosua Guzman M.D. 83085 M25.552 Of C.MArt M16.12 Office Visit 06/22/2016 10:00a [facility] Internal Jeni Gardner, N.P. 67506 S39.013A Medicine - [facility] R10.32 Office Visit 04/16/2016 2:40p [facility] [place] [address] J06.9 [facility] J44.9 Office Visit 03/02/2016 9:30a [place] [address] G35 J44.9 S39.013A Z79.899 Office Visit 02/09/2016 11:20a [facility] Internal Medicine - Jeni Gardner, N.P. 36778 Z23 [facility] S39.013A M81.0 Office Visit 10/24/2015 1:20p [facility] Internal Medicine Jeni Gardner, N.P. 70984 M81.0 - [facility] Office Visit 08/12/2015 10:40a [facility] Internal Medicine Jeni Gardner, N.P. 84910 Z00.00 - [facility] Z12.31 J44.9 E78.0 G35 M85.89 F17.201 F32.9 Z23 Office Visit 04/30/2015 4:20p [facility] Internal Medicine - Hugofelipe Rogers, TIRE CENTER MANAGER 51162 J20.9 [facility] J44.1 Office Visit 11/26/2014 10:00a [facility] Garrison Mckeon, 60426 340 Services [facility] Alba 780.79 Office Visit 06/07/2014 10:00a [facility] Internal Medicine - Jeni Gardner, N.P. 24066 496 [facility] 724.5 733.00 720.2 Office Visit 06/05/2014 2:20p [facility] Internal Medicine Jeni Gardner, N.P. 43706 724.5 - [facility] 720.2 728.85 Office Visit 04/10/2014 11:20a [facility] Internal Medicine Jeni Gardner, N.P. 79868 496 - [facility] Office Visit 03/27/2014 9:00a [facility] Internal Medicine Jeni Gardner, N.P. 76142 496 - [facility] Office Visit 03/21/2014 11:40a [facility] Internal Medicine Jeni Gardner, N.P. 77773 496 - [facility] Office Visit 11/27/2013 9:00a [facility] Internal Medicine Jeni Gardner, N.P. 20666 272.4 - [facility] 564.00 Office Visit 10/23/2013 2:15p [facility] Garrison Mckeon, 30094 340 Services Of Oj Willis Office Visit 10/10/2013 2:00p [facility] Internal Medicine Maryjo Joshi M.D., 31365 V70.0 - [facility] FACP V70.0 V76.10 340 496 530.81 300.00 564.1 272.0 575.8 Office Visit 09/04/2013 11:20a [facility] Internal Medicine - Maryjo Joshi M.D., 18212 496 [facility] FACP 530.81 575.8 Office Visit 08/16/2013 3:40p [facility] Internal Medicine - Maryjo Joshi M.D., 86464 496 [facility] FACP 530.81 Office Visit 04/19/2013 4:00p [facility] Internal Medicine - Maryjo Joshi M.D., 52600 466.0 [facility] FACP Office Visit 02/22/2013 9:00a [facility] Internal Medicine - Maryjo Joshi M.D., 74191 564.1 [facility] FACP 496 300.00 340 Office Visit 11/06/2012 11:20a [facility] Internal Medicine Maryjo Joshi M.D., 16387 715.14 - [facility] FACP 780.79 Office Visit 10/16/2012 11:20a [facility] Internal Medicine Maryjo Joshi M.D., 95021 780.79 - [facility] FACP 785.6 Office Visit 10/04/2012 2:45p [facility] Garrison Mckeon, 74368 340 Services Of Dupligraph Operator M.D. Office Visit 05/01/2012 9:40a [facility] Internal Medicine - Jeni Gardner, N.P. 72195 340 [facility] 380.4 466.0 Office Visit 04/27/2012 10:40a [facility] Internal Medicine Jeni Gardner, N.P. 03826 466.0 - [facility] 380.4 Office Visit 03/03/2012 3:40p [facility] Internal Medicine Jeni Gardner, N.P. 71710 466.0 - [facility] Office Visit 11/08/2011 8:40a [facility] Internal Medicine Jeni Gardner, N.P. 14984 268.9 - [facility] 272.4 305.1 Office Visit 09/06/2011 4:20p [facility] Internal Medicine Abida Wadsworth, 28614 528.6 - [facility] M.D. 923.10 Office Visit 08/10/2011 2:20p [facility] Internal Medicine Maryjo Joshi M.D., 29313 V70.0 [facility] FACP V76.10 496 733.90 305.1 401.1 780.52 v72.60 Office Visit 04/15/2011 10:00a DO Not Use Jeni Gardner, 18945 723.1 [facility] N.P. Office Visit 04/13/2011 10:00a DO Not Use Maryjo Joshi M.D., 19888 786.59 [facility] FACP 723.1 Office Visit 03/15/2011 10:00a DO Not Use [facility] Maryjo Joshi 69374 596.9 [place], FACP 300.00 305.1 733.90 Office Visit 02/10/2011 2:20p DO Not Use [facility] Maryjo Josih M.D., 09815 496 FACP 305.1 300.00 780.79 V76.10 Office Visit 02/03/2011 2:00p DO Not Use [facility] Maryjo Joshi M.D., 06723 496 FACP v04.81 Office Visit 12/28/2010 10:00a DO Not Use [facility] Maryjo Joshi M.D., 14104 496 FACP 300.00 Office Visit 12/10/2010 3:40p DO Not Use [facility] Maryjo Joshi M.D., 75250 496 FACP Office Visit 12/03/2010 3:00p DO Not Use [facility] Maryjo Joshi M.D., 13869 496 FACP Office Visit 04/23/2010 2:45p DO Not Use [facility] Maryjo Joshi M.D., 06476 340 FACP 788.43 309.0 496 Office Visit 03/25/2010 9:00a DO Not Use Abida Wadsworth, 56917 786.50 Gavino Willis Office Visit 12/02/2009 10:00a DO Not Use Maryjo Joshi M.D., 16142 496 [facility] FACP Office Visit 10/15/2009 4:15p DO Not Use Maryjo Joshi M.D., 29389 491.21 [facility] FACP Office Visit 09/03/2009 3:45p DO Not Use Jeni Gardner, 37731 466.0 [facility] N.P. Office Visit 04/24/2009 2:00p DO Not Use Maryjo Joshi M.D., 91340 496 [facility] FACP 340 V04.81 Office Visit 04/04/2009 4:30p DO Not Use Faye Medrano, 86914 708.9 [facility] Willis 496 340 Office Visit 03/19/2009 2:30p DO Not Use [facility] Jeni Gardner, 72817 461.9 N.P. Office Visit 10/02/2008 2:45p DO Not Use [facility] Maryjo Joshi M.D., 15251 496 FACP 340 780.79 Office Visit 09/12/2008 3:00p DO Not Use [facility] Maryjo Joshi 86319 V72.31 MWaldemar, FACP 340 496 733.00 Office Visit 06/24/2008 2:00p DO Not Use Jeni Gardner, 64553 727.04 [facility] N.P. 719.41 Office Visit 06/19/2008 4:00p DO Not Use [facility] Jeni Gardner, 94992 466.0 N.P. Office Visit 04/26/2008 3:45p DO Not Use [facility] Maryjo Joshi M.D., 20128 496 FACP 466.0 Office Visit 04/15/2008 3:30p DO Not Use Jeni Gardner, 11407 611.72 [facility] N.P. Office Visit 02/16/2008 10:00a DO Not Use Maryjo Joshi M.D., 83702 496 [facility] FACP 478.30 V04.81 V03.82 Office Visit 10/27/2007 3:30p DO Not Use [facility] Maryjo Joshi 26026 727.04 Al[place], FACP 285.9 780.79 Office Visit 09/06/2007 4:00p DO Not Use Faye Medrano, 36075 729.5 [facility] Michael.Viri 356.9 Office Visit 06/13/2007 3:45p DO Not Use Jeni Gardner, 78876 599.0 [facility] N.P. Office Visit 03/28/2007 3:30p Neurosurgery Services Celestino Allen, 85139 724.2 Of [employer] Operator M.D. Office Visit 02/07/2007 11:45a DO Not Use Jeni Gardner, 44738 564.00 [facility] N.P. 465.9 708.9 Office Visit 01/24/2007 3:30p [facility]surgery Services Celestino Allen, 17888 Of [employer] Operator M.D. Office Visit 12/29/2006 2:30p DO Not Use Maryjo Joshi M.D., 09889 780.79 [facility] FACP 340 709.9 724.02 Office Visit 12/08/2006 10:30a Neurosurgery Services Celestino Allen, 67256 Of [employer] Operator M.D. Office Visit 09/20/2006 12:00p DO Not Use Maryjo Joshi M.D., 03435 780.79 [facility] FACP Office Visit 09/09/2006 11:00a DO Not Use Maryjo Joshi M.D., 22330 340 [facility] FACP 780.79 733.90 Office Visit 08/04/2006 11:45a DO Not Use [facility] Maryjo Joshi M.D., 92091 340 FACP 733.00 Office Visit 07/21/2006 3:00p DO Not Use [facility] Maryjo Joshi M.D., 91478 340 FACP 724.2 Office Visit 07/08/2006 11:00a [facility] Celestino Allen, 02777 722.10 Neurosurgery M.D. Office Visit 07/04/2006 4:00p DO Not Use Jeni Gardner, 53899 720.2 [facility] N.P. 719.45 340 564.00 Office Visit 06/23/2006 2:30p DO Not Use [facility] Maryjo Joshi 46284 V70.0 M.D., FACP 340 V06.1 Office Visit 12/30/2005 11:15a DO Not Use [facility] Maryjo Joshi, 60520 610.0 M.D., FACP 340 272.4 Plan of Care Future Appointment(s):12/26/2017 1:00 pm - Mya Langston N.P. at [facility]12/08/2017 3:30 pm - ABBEY Ruiz at [facility]12/08/2017 3:30 pm - PENELOPE Bey at [facility].12/08/2017 3:30 pm - Akosua Guzman M.D. at [facility] ..A.12/19/2017 1:15 pm - Akosua Guzman M.D. at [facility].A11/25/2017 10:45 am - Akosua Guzman M.D. at [facility].03/21/2018 1:45 pm - Garrison Mckeon M.D. at [place] [facility]11/23/2017 - Hugo Rogers, NPZ01.818 Encounter for other preprocedural examinationNew Orders:EKGComments:As long as you are cleared by Dr. Lowe and your bloodwork is normal I do not see any contraindications to your surgery.M16.12 Unilateral primary osteoarthritis, left hipJ44.9 Chronic obstructive pulmonary disease, [id number] Multiple sclerosis
[2017-12-08] MEDS ORDERED: Midazolam* 1 MG/ML 2 ML VIAL (2 MG) ONE (08:58)
[2017-12-08] MEDS ORDERED: fentaNYL* 50 MCG/ML 2 ML VIAL (100 MCG VIAL) ONE ×2 (08:58→12:31)
[2017-12-08] MEDS ORDERED: Lidocaine 2% PF * 5 ML VIAL ONE (09:32)
[2017-12-08] MEDS ORDERED: Cisatracurium* 2 MG/ML MDV 5 ML ONE (09:37)
[2017-12-08] MEDS ORDERED: Propofol* 10 MG/ML 20 ML BTL IV PUSH ONE (09:49)
[2017-12-08] MEDS ORDERED: Dexamethasone IV* 4 MG/ML 1 ML (4 MG) ONE (09:49)
[2017-12-08] MEDS ORDERED: Famotidine IV* 10 MG/ML 2 ML (20 mg) ONE (09:49)
[2017-12-08] MEDS ORDERED: EPHEDrine (Pressors)* 50 MG/ML VIAL ONE (09:52)
[2017-12-08] MEDS ORDERED: Phenylephrine INJ* 10 MG/ML 1 ML VIAL (10 MG) ONE (09:59)
[2017-12-08] MEDS ORDERED: Bupivacaine 0.5% PF 10 ML VIAL INJ ONE (10:21)
[2017-12-08] MEDS ORDERED: Naloxone* 0.4 MG/ML 1 ML VIAL IV PRN (10:56)
[2017-12-08] MEDS ORDERED: Levalbuterol 0.63MG/3ML NEB* UNIT OF USE INH PRN (10:56)
[2017-12-08] MEDS ORDERED: HYDROmorphone INJ* 0.5 MG/0.5 ML SYRINGE IV PRN (10:56)
[2017-12-08] MEDS ORDERED: DiMENhydriNATE IV* 50 MG/ML VIAL IV PUSH PRN (10:56)
[2017-12-08] MEDS ORDERED: PROCHLORPERAZINE INJ 5 MG/ML 2 ML VIAL IV PRN (10:56)
[2017-12-08] MEDS ORDERED: oxyCODONE TAB* 5 MG TAB PO PRN (10:56)
[2017-12-08] MEDS ORDERED: Nalbuphine* 10 MG/ML 1 ML VIAL IV PRN (10:56)
[2017-12-08] MEDS ORDERED: Acetaminophen IV 1GM/100ML * 1,000 MG/100 ML VIAL IVPB ONE (10:56)
[2017-12-08] MEDS ORDERED: diPHENhydraMINE IV* 50 MG/ML 1 ml VIAL (BENADRYL) IV PRN ×2 (10:56→11:55)
[2017-12-08] MEDS ORDERED: Albuterol/Ipratropium RESP(NF) MDI (Combivent Respimat) INH PRN (11:04)
[2017-12-08] MEDS ORDERED: Ketorolac INJ* 30 MG/ML 1 ML VIAL ONE (11:33)
[2017-12-08] MEDS ORDERED: Acetaminophen IV 1GM/100ML * 100 ML ONE (11:35)
[2017-12-08] MEDS ORDERED: Morphine VIAL* 4 MG/ML VIAL (1 ml vial) IV PRN (11:55)
[2017-12-08] MEDS ORDERED: Polyethylene Glycol 3350* 17 GM PACKET PO PRN (11:55)
[2017-12-08] MEDS ORDERED: Bisacodyl SUPP* 10 MG SUPP PR PRN (11:55)
[2017-12-08] MEDS ORDERED: Magnesium Hydroxide LIQ* 30 ML UDC PO PRN (11:55)
[2017-12-08] MEDS ORDERED: Ondansetron TAB* 4 MG PO PRN (11:55)
[2017-12-08] MEDS ORDERED: oxyCODONE/Acetamin 5/325 MG* TAB PO PRN (11:55)
[2017-12-08] MEDS ORDERED: Cyclobenzaprine TAB* 10 MG PO PRN (11:55)
[2017-12-08] MEDS ORDERED: Albuterol HFA INHALER* 8 gm MDI INH PRN (12:00)
[2017-12-08] MEDS ORDERED: Albuterol 2.5 MG/3 ML NEB.SOL* (0.083%) INH PRN (12:00)
[2017-12-08] MEDS ORDERED: Glatiramer(NF) 20 MG/ML 1 ML SYRINGE SUBCUT SCH (12:00)
[2017-12-08] MEDS: fentaNYL* 50 MCG/ML 2 ML VIAL (100 MCG VIAL) IV PRN ×2 (12:32→13:04)
[2017-12-08] MEDS ORDERED: oxyCODONE TAB* 5 MG TAB ONE (12:55)
--- NOTE | 2017-12-08 13:08 | RAD ---
HISTORY: s/p left MEREDITH COMPARISONS: October 31, 2017 VIEWS: 3, Frontal view of the pelvis with frontal and crosstable lateral views of the left hip FINDINGS: BONE DENSITY: Normal. BONES: The patient is status post left hip arthroplasty. There is no hardware failure or osteolysis. JOINTS: The patient is status post left hip arthroplasty. There is osteoporosis of the right hip and SI joints. ALIGNMENT: There is no dislocation. SOFT TISSUES: Unremarkable. OTHER FINDINGS: None. IMPRESSION: STATUS POST LEFT HIP ARTHROPLASTY.
[2017-12-08] MEDS: PTO: Albuterol/Ipratropium RESP(NF) MDI (Combivent Respimat) INH SCH ×3 (14:13→21:08)
[2017-12-08] MEDS: Pregabalin CAP(*) 100 MG PO SCH ×2 (14:24→21:42)
--- NOTE | 2017-12-08 16:02 | CONS ---
CONSULTATION REPORT: DATE OF CONSULT: 12/08/17 PATIENT OF: Dr. Guzman. REFERRED TO: Dottie Ruiz DO. CHIEF COMPLAINT: Left hip pain. REASON FOR CONSULT: Medical co-management. HISTORY OF PRESENT ILLNESS: Mrs. Cleary is a 71-year-old female with past medical history significant for osteoporosis, osteoarthritis, multiple sclerosis , COPD, asthma with exacerbation, as well as remote history of DVT secondary to a leg fracture and casting, who was evaluated by the orthopedic group as an outpatient due to difficulties with left hip pain and left groin pain. The patient had known osteoarthritis of the left hip and she has had more difficulty ambulating in the past few months due to severe pain. She was evaluated and found to be a good candidate for a left total hip arthroplasty to be performed on a later date. The patient presented to same-day surgery today and was taken to the operating room where she had a total hip replacement by Dr. Guzman. Surgery went smoothly with no immediate complication and in the recovery room, the patient was noted to have low oxygen saturation; however, they were able to extubate her and we were asked to see the patient for further evaluation and medical co-management given her multiple medical comorbidities. PAST MEDICAL HISTORY: As mentioned above, significant for: 1. Osteoporosis. 2. Osteoarthritis. 3. Hypercholesterolemia. 4. Asthma. 5. COPD. 6. History of DVT secondary to a leg fracture. 7. Multiple sclerosis. 8. Hypothyroidism. 9. Depression. 10. Anxiety. PAST SURGICAL HISTORY: Significant for T and A as a child, appendectomy, hysterectomy, and diskectomy of the lumbar spine, as well as left total hip arthroplasty today. MEDICATIONS: Her medications at home include: 1. Albuterol (Ventolin) MDI inhaler 2 puffs 4 times daily as needed for shortness of breath. 2. Albuterol nebulizer 2.5 mg per 3 mL 3 times daily. 3. Vitamin C 500 mg p.o. daily. 4. Aspirin 81 mg p.o. daily. 5. Lipitor 20 mg p.o. daily. 6. Soma 350 mg p.o. q.6 hours. 7. Prolia 60 mg injection q. week. 8. Epinephrine 0.3 mg EpiPen use as instructed for allergic reaction. 9. Advair Diskus 500/50 one puff b.i.d. 10. Copaxone 40 mg syringe. 11. Ipratropium (Atrovent) nebulizer b.i.d. 12. Provigil 200 mg tablet p.o. b.i.d. 13. [place] fish oil 1200 mg p.o. daily. 14. MiraLAX 17 g p.o. daily. 15. Lyrica 100 mg p.o. t.i.d. 16. Effexor 150 mg p.o. daily. ALLERGIES: Multiple, including AMOXICILLIN with CLAVULANIC ACID, SULFA. FAMILY HISTORY: Reviewed and noncontributory. SOCIAL HISTORY: The patient lives with her . She is a nonsmoker who denies alcohol intake. Her surrogate decision maker is her , Thomas, and she wishes to be a full code. REVIEW OF SYSTEMS: See HPI. Otherwise, 14 points review of systems were examined and were essentially negative. PHYSICAL EXAM: General: She is a 71-year-old female, appears comfortable, in no acute distress or discomfort at the time of consultation. Vitals: Temperature of 97.3, heart rate of 76, respirations of 14 with O2 sat of 95% on 2 L oxygen, blood pressure 107/65. HEENT: Head is normocephalic, atraumatic. Sclerae anicteric. PERRLA. EOMs intact. Oropharynx is pink and moist. Neck: Supple. Trachea midline. No cervical adenopathy or thyromegaly. Lungs: Clear to auscultation bilaterally. Heart: Regular rate and rhythm. Normal S1 and S2 without rubs, murmurs, or gallops. Back: With normal curvature and no CVA tenderness. Breast Exam: Deferred at this time. Abdomen: Soft, nontender , and nondistended. Extremities: Without cyanosis, clubbing, or edema. Left lower extremity with dressing intact at the lateral hip. There is no evidence of bleeding or discharge or distal edema. Neurologic: She is awake, alert, and oriented. Rectal Exam: Deferred at this time. IMPRESSION: A 71-year-old female with multiple medical issues including osteoporosis, osteoarthritis, chronic obstructive pulmonary disease, asthma with exacerbation, multiple sclerosis, hypothyroidism as well as remote history of deep venous thrombosis to the lower extremity, who is postop day #0, status post left total hip arthroplasty. ASSESSMENT AND PLAN: 1. Status post left total hip arthroplasty. Management by ortho team. PT and OT evaluation as well as pain management. Anticipate discharge by the orthopedic team in the next couple of days. 2. Chronic obstructive pulmonary disease and asthma with exacerbation. The patient is appearing to be stable at this point with no evidence of exacerbation. She does not have any home oxygen; however, we will maintain her on oxygen and continue pulse oximetry at the surgical stay unit. 3. Hyperlipidemia. We will continue her statin. 4. Multiple sclerosis. Supportive care. Continue her injections. 5. Anxiety and depression. We will continue her Effexor. 6. DVT prophylaxis: The patient is on Lovenox subcu per ortho team to be bridged to Coumadin upon discharge. 7. Code status: She is a full code. 8. Disposition: The patient will be admitted to surgical stay unit by the orthopedic team and will be followed by Hospitalist for medical co-management. We will continue all her home medications as well as nebulizers and continue to use pulse oximetry while she stayed at the surgical stay unit. Labs tomorrow to evaluate for blood loss, check her INR on a daily basis. PT and OT per orthopedic team. Thank you for this consultation. PENELOPE LIM [id number]/[facility] #: [id number] TOM
[2017-12-08] MEDS ORDERED: Warfarin TAB(*) 6 MG PO ONE (17:00)
[2017-12-08] MEDS: oxyCODONE TAB* 5 MG TAB PO PRN ×2 (17:16→21:41)
[2017-12-08] MEDS: Atorvastatin* 20 MG TAB PO SCH (17:16)
[2017-12-08] MEDS: Clindamycin 600 MG IVPREMIX(* 600 MG/50 ML SDV IV SCH (17:54)
[2017-12-08] MEDS ORDERED: Albuterol 2.5 MG/3 ML NEB.SOL* (0.083%) INH SCH (19:00)
[2017-12-08] MEDS: Acetaminophen TAB* 325 MG PO SCH (19:58)
[2017-12-08] MEDS ORDERED: Ipratropium 0.5MG/2.5ML NEB* 0.5 MG/2.5 ML NEB.SOLN INH SCH (21:00)
[2017-12-08] MEDS ORDERED: MODAFINIL 200 MG PO SCH (21:00)
[2017-12-08] MEDS: Docusate CAP* 100 MG PO SCH (21:42)
[2017-12-08] MEDS: Magnesium Hydroxide LIQ* 30 ML UDC PO SCH (21:43)
[2017-12-08] MEDS: FLUTICASONE SALMETEROL INH SCH (22:25)
[2017-12-09] MEDS: Clindamycin 600 MG IVPREMIX(* 600 MG/50 ML SDV IV SCH ×2 (02:20→09:59)
[2017-12-09] MEDS: oxyCODONE TAB* 5 MG TAB PO PRN (02:36)
[2017-12-09] MEDS: Acetaminophen TAB* 325 MG PO SCH ×3 (03:53→20:16)
[2017-12-09 05:33] LABS: Hematocrit 31 % (35-47); Hemoglobin 10.7 g/dl (12.0-16.0); Mean Platelet Volume 7.1 um3 (7.4-10.4); Platelet Count 215 10^3/ul (150-450)
[2017-12-09 05:37] LABS: INR 1.06 (0.77-1.02)
--- NOTE | 2017-12-09 06:59 | PN ---
Progress Note - Progress Note Date of Service: 12/09/17 SOAP: Subjective: []Patient seen at bedside. She is feeling well with no current hip pain. No chest pain, dizziness, nausea. She has COPD and her breathing is reported as her baseline without any current difficulty. Objective: []General: Well appearing, NAD, laying comfortably in bed. LLE: Left hip dressing CDI, thigh soft. DF/PF intact. Sensation intact distally , DP2+ BL calves supple and nontender without erythema, edema or palpable cords. Assessment: []POD 1 SP left total hip arthroplasty Plan: []WBAT PT/OT, hip precautions Lovenox, coumadin 6 mg Vital Signs Temp 98.9 F 12/09/17 04:05 Pulse 70 12/09/17 04:05 Resp 18 12/09/17 07:28 BP 133/54 12/09/17 04:05 Pulse Ox 100 12/09/17 04:05 Intake & Output 12/08/17 12/09/17 12/09/17 18:59 06:59 18:59 Intake Total 2180 2030 Output Total 255 1700 Balance 1925 330 Weight 113 lb Intake: IV Fluids 1450 980 CLINDAMYCIN 900 MG 50 LR 1400 980 IVPB 50 ABX - CLINDAMYCIN 50 Oral 730 1000 Output: Delgadillo 225 1700 Residual 30 Delgadillo 16 Fr 30 Laboratory Last Values Hgb 10.7 g/dl (12.0-16.0) L 12/09/17 05:02 Hct 31 % (35-47) L 12/09/17 05:02 Plt Count 215 10^3/ul (150-450) 12/09/17 05:02 MPV 7.1 um3 (7.4-10.4) L 12/09/17 05:02 INR (Anticoag Therapy) 1.06 (0.77-1.02) H 12/09/17 05:02 Sodium 137 mmol/L (135-145) 12/09/17 05:02 Potassium 3.7 mmol/L (3.5-5.0) 12/09/17 05:02 Chloride 102 mmol/L (101-111) 12/09/17 05:02 Carbon Dioxide 32 mmol/L (22-32) 12/09/17 05:02 Anion Gap 3 mmol/L (2-11) 12/09/17 05:02 BUN 12 mg/dL (6-24) 12/09/17 05:02 Creatinine 0.50 mg/dL (0.51-0.95) L 12/09/17 05:02 Est GFR ( Amer) 147.6 (>60) 12/09/17 05:02 Est GFR (Non-Af Amer) 122.0 (>60) 12/09/17 05:02 BUN/Creatinine Ratio 24.0 (8-20) H 12/09/17 05:02 Glucose 125 mg/dL (70-100) H 12/09/17 05:02 Calcium 8.1 mg/dL (8.6-10.3) L 12/09/17 05:02
[2017-12-09] MEDS: FLUTICASONE SALMETEROL INH SCH ×2 (07:26→23:53)
[2017-12-09] MEDS: PTO: Albuterol/Ipratropium RESP(NF) MDI (Combivent Respimat) INH SCH ×2 (07:28→11:59)
[2017-12-09] MEDS: Pregabalin CAP(*) 100 MG PO SCH ×3 (07:28→20:14)
[2017-12-09] MEDS: oxyCODONE/Acetamin 5/325 MG* TAB PO PRN ×4 (07:28→23:54)
[2017-12-09] MEDS: Venlafaxine EXT RELEASE CAP* 75 MG PO SCH (07:28)
[2017-12-09] MEDS: Docusate CAP* 100 MG PO SCH ×2 (07:28→20:15)
[2017-12-09] MEDS: Magnesium Hydroxide LIQ* 30 ML UDC PO SCH ×2 (07:29→20:15)
[2017-12-09] MEDS: Ondansetron INJ* 2 MG/ML VIAL IV PRN (10:32)
[2017-12-09] MEDS ORDERED: Morphine INJ* 2 MG/ML 1 ML SYRINGE (TWO MG - NEW SYRINGE VERSION) IV PRN (12:03)
[2017-12-09] MEDS: Enoxaparin(*) 30 MG/0.3 ML SYR SUBCUT SCH (12:03)
--- NOTE | 2017-12-09 15:49 | PN ---
Subjective Date of Service: 12/09/17 Interval History: Patient seen and examined, no chest pain. Some cough noted with deep inspiration , no SOB, denies fever or chills, some left hip pain, tolerable. Objective Active Medications: Acetaminophen (Tylenol Tab*) 975 mg PO Q8H [facility] Last Admin: 12/09/17 10:00 Dose: Not Given Albuterol (Ventolin Hfa Inhaler*) 2 puff INH Q4H PRN PRN Reason: COPD Albuterol/Ipratropium (Duoneb (Albuterol 2.5 Mg/Ipratropium 0.5 Mg)) 1 neb INH Q4H [facility] Stop: 12/10/17 00:01 Atorvastatin Calcium (Lipitor*) 20 mg PO QPM [facility] Last Admin: 12/08/17 17:16 Dose: 20 mg Bisacodyl (Dulcolax Supp*) 10 mg NV DAILY PRN PRN Reason: constipation Cyclobenzaprine HCl (Flexeril Tab*) 5 mg PO TID PRN PRN Reason: SPASMS Last Admin: 12/08/17 23:09 Dose: 5 mg Diphenhydramine HCl (Benadryl Iv*) 12.5 mg IV Q6H PRN PRN Reason: PRURITIS Docusate Sodium (Colace Cap*) 100 mg PO BID [facility] Last Admin: 12/09/17 07:28 Dose: 100 mg Enoxaparin Sodium (Lovenox(*)) 30 mg SUBCUT Q24H [facility] Last Admin: 12/09/17 12:03 Dose: 30 mg Glatiramer Acetate (Copaxone(Nf)) 40 mg SUBCUT .SEE INSTRUCTIONS [facility] Lactulose (Lactulose*) 30 ml PO Q6H PRN PRN Reason: constipation Magnesium Hydroxide (Milk Of Magnesia Liq*) 30 ml PO BID [facility] Last Admin: 12/09/17 07:29 Dose: 30 ml Magnesium Hydroxide (Milk Of Magnesia Liq*) 30 ml PO Q6H PRN PRN Reason: constipation Morphine Sulfate (Morphine Inj ((Syringe))*) 2 mg IV Q2H PRN PRN Reason: PAIN Ondansetron HCl (Zofran Inj*) 4 mg IV Q6H PRN PRN Reason: nausea Last Admin: 12/09/17 10:32 Dose: 4 mg Ondansetron HCl (Zofran Tab*) 4 mg PO Q6H PRN PRN Reason: NAUSEA Oxycodone HCl (Roxycodone Tab*) 10 mg PO Q4H PRN PRN Reason: SEVERE PAIN Last Admin: 12/09/17 02:36 Dose: 10 mg Oxycodone/Acetaminophen (Percocet 5/325 Tab*) 1 tab PO Q4H PRN PRN Reason: PAIN Oxycodone/Acetaminophen (Percocet 5/325 Tab*) 2 tab PO Q4H PRN PRN Reason: PAIN Last Admin: 12/09/17 12:03 Dose: 2 tab Pharmacy Profile Note (Coumadin Daily Reminder*) 1 note FOLLOW UP 1700 [facility] Last Admin: 12/08/17 17:17 Dose: 1 note Polyethylene Glycol/Electrolytes (Miralax*) 17 gm PO DAILY PRN PRN Reason: Constipation Pregabalin (Lyrica Cap(*)) 100 mg PO TID [facility] Last Admin: 12/09/17 14:32 Dose: 100 mg Fluticasone/Salmeterol (Advair Diskus 500-50*) 1 puff INH BID [facility] Last Admin: 12/09/17 07:26 Dose: 1 puff Venlafaxine HCl (Effexor Xr Cap*) 150 mg PO DAILY [facility] Last Admin: 12/09/17 07:28 Dose: 150 mg Warfarin Sodium (Coumadin Tab(*)) 6 mg PO ONCE@1700 [facility]; Protocol Stop: 12/09/17 17:01 Vital Signs - 8 hr 12/09/17 12/09/17 12/09/17 07:51 08:00 09:42 Temperature 98.6 F Pulse Rate 79 Respiratory 18 18 18 Rate Blood Pressure 109/48 (mmHg) O2 Sat by Pulse 97 97 Oximetry 12/09/17 12/09/17 12/09/17 11:39 12:01 12:03 Temperature 97.8 F Pulse Rate 69 81 Respiratory 18 18 18 Rate Blood Pressure 99/51 (mmHg) O2 Sat by Pulse 100 92 Oximetry 12/09/17 12/09/17 14:08 14:32 Temperature Pulse Rate Respiratory 18 18 Rate Blood Pressure (mmHg) O2 Sat by Pulse Oximetry Oxygen Devices in Use Now: Nasal Cannula Appearance: alert, NAD Eyes: No Scleral Icterus, PERRLA Ears/Nose/Mouth/Throat: NL Teeth, Lips, Gums, Mucous Membranes Moist Neck: NL Appearance and Movements; NL JVP, Trachea Midline Respiratory: Symmetrical Chest Expansion and Respiratory Effort, - - diminished bases, poor air entry bilaterally Cardiovascular: NL Sounds; No Murmurs; No JVD, RRR Abdominal: NL Sounds; No Tenderness; No Distention Extremities: No Edema, No Clubbing, Cyanosis, - - left hip dressing CDI Skin: No Rash or Ulcers Neurological: Alert and Oriented x 3, NL Sensation Nutrition: Taking PO's Result Diagrams: 12/09/17 05:02 12/09/17 05:02 Assess/Plan/Problems-Billing Assessment: This is a 71 year old female with history of COPD and OA that presented for elective left total hip arthroplasty, POD1. - Patient Problems (1) Status post total hip replacement, left Code(s): Z96.642 - PRESENCE OF LEFT ARTIFICIAL HIP JOINT SNOMED Code(s): 476418280624 Comment: - POC as per orthopedics - POD1, pain control, OOB with PT/OT, bowel regimen - Hip precautions (2) COPD (chronic obstructive pulmonary disease) Code(s): J44.9 - CHRONIC OBSTRUCTIVE PULMONARY DISEASE, UNSPECIFIED SNOMED Code(s): 62249314 Comment: - Continue home meds - Add duoneb Q4h x3 doses - Continue IS 10x/hr while awake - encourage cough and deep breathe (3) DVT prophylaxis Code(s): MUH1289 - SNOMED Code(s): 786102328 Comment: - Coumadin bridge as per ortho (4) Full code status Code(s): Z78.9 - OTHER SPECIFIED HEALTH STATUS SNOMED Code(s): 511971525 Status and Disposition: remain inpatient, dispo per ortho
[2017-12-09] MEDS: Albuterol/Ipratropium NEB.SOL* Albuterol 2.5 MG/Ipratropium 0.5 MG 3 ML INH SCH ×3 (16:07→23:36)
[2017-12-09] MEDS ORDERED: NS 0.9% 1000 ML* 1,000 ML IV SCH (17:00)
[2017-12-09] MEDS ORDERED: Warfarin TAB(*) 6 MG PO SCH (17:00)
[2017-12-09] MEDS: Atorvastatin* 20 MG TAB PO SCH (17:07)
--- NOTE | 2017-12-10 02:01 | OP ---
OPERATIVE REPORT: DATE OF OPERATION: 12/08/17 DATE OF : 47 SURGEON: Akosua Guzman MD SENSOR TECHNICIAN: PENELOPE Henry Ms. did help throughout the procedure with preparation of the leg, wound retraction, manipul ation of the hip, and wound closure. ANESTHESIOLOGIST: Dr. Zhou ANESTHESIA: Spinal. PRE-OP DIAGNOSIS: Severe end-stage degenerative osteoarthritis of the left hip joint. POST-OP DIAGNOSIS: Severe end-stage degenerative osteoarthritis of the left hip joint. OPERATIVE PROCEDURE: Left total hip arthroplasty. COMPLICATIONS: None. ESTIMATED BLOOD LOSS: 200 cc. SPECIMENS: Femoral head and acetabular reaming sent to pathology. HARDWARE USED: This is uncemented [employer] total hip arthroplasty hardware. For the cup, a Tritanium cluster hole shell 54E, a single 16-mm and a single 25-mm cancellous bone screw. For the insert a T rident X3 0-degree polyethylene insert 36E. For the stem, an Accolade TMZF size 3.5 with 127-degree neck. For the head, a Biolox delta ceramic V40, femoral head 36+2.5. BRIEF HISTORY/INDICATIONS: Ms. Cleary is a 71-year-old female with years of increasingly severe left hip pain. Radiograph showed end-stage arthritis. She failed conservative treatment and elected to undergo left total hip arthroplasty due to continued pain and decreased quality of life. Informed co nsent was obtained from the patient. She understood the risks of surgery included, but were not limi tianna to bleeding, infection, damage to nearby structures, continued pain, need for further surgery, in traoperative fracture, nerve palsy, hardware failure or loosening, dislocation, leg length discrepanc y, stroke, heart attack, blood clot, and . She wished to proceed. INTRAOPERATIVE FINDINGS: Intraoperatively, the patient was noted to have complete loss of cartilage along the acetabulum and femoral head neck region. She had significant osteopenia noted. She had si gnificant osteophyte formation around the anterior and superior acetabulum. DESCRIPTION OF PROCEDURE: Ms. Cleary is a 71-year-old female who was identified in the preanesthesia unit. Her left lower extremity was marked as the correct operative site. Informed consent was sign ed and placed in the chart. The patient was taken to the operating room and placed under spinal anes thesia. A Delgadillo catheter was placed. The patient was placed in the right lateral decubitus position on the peg board. Left lower extremity was prepped and draped in the usual sterile fashion. Preop time-out was made to correctly identify the patient side and site. Appropriate perioperative antibio tics were given within 1 hour of incision. A standard 12 cm posterior hip incision was made with a 10 blade and carried down to the lateral fasc ial layer. New 10 blade was used to make standard lateral facial incision. Charnley retractor was p laced. The piriformis and conjoint tendons were identified. These were elevated off the posterolate ral femur and tagged with #5 Ethibond. Electrocautery was then used to make a standard posterolatera l capsular flap and this was also tagged with #5 Ethibond. The hip was carefully dislocated. Lesser troch to the center of the femoral head measured 62 mm. Os cillating saw was used to make the appropriate femoral neck cut and the femoral head was removed. Th e femur was retracted anteriorly. After appropriate placement of retractor, the acetabulum was easil y visualized. Long handled knife was used to remove any remaining labrum from the acetabular rim. T he acetabulum was sequentially reamed up to a size 53. Bleeding subchondral bone bed was obtained. A 53 trial had excellent fit and good stability. Final implant chosen was a Tritanium cluster hole s hell 54E. This was impacted into the acetabulum without difficulty. The cup was stable with appropr iate anteversion and abduction angle. Two screws were placed in the superior posterior quadrant for extra stability. These were length 16 mm and length 25 mm. The insert chosen was a Trident X3 0-deg ree polyethylene insert 36E. This was impacted into the acetabulum without difficulty. The liner wa s stable and this was checked. Attention was next turned to preparation of the femoral canal. A canal finder was used to enter the proximal femur. The proximal femur was sequentially broached up to a size 3.5. Size 3.5 broach had excellent fit and appropriate anteversion. A 127 neck trial with a 36 +0 head trial was chosen. The lesser troch to the center of the femoral head measured 60 mm. Therefore, a +2.5 head was chosen. Lesser troch to the center of the femoral head measured 62 mm. The hip was reduced and taken through range of motion. The hip was stable in all positions. There was good soft tissue tension and appro priate leg lengths. The hip was carefully dislocated. All trials were removed. Final implant chosen was an Accolade TMZF size 3.5 with a 127 degree neck angle. This was impacted in to the femoral canal. Stability of the stem was excellent with appropriate anteversion. A Biolox de lta ceramic V40 femoral head 36 +2.5 was chosen as the final implant and this was impacted onto the f emoral neck. Lesser troch to the center of the femoral head measured 63 mm. The hip was reduced and taken through a range of motion. The hip was stable in all positions. The hip was copiously irrigated with sterile saline. Previously tagged tendons and capsules were timbo pproximated to the posterolateral femur through 2 trochanteric drill holes. Lateral fascial layer wa s closed using interrupted #1 Vicryl. The rest of the incision was closed in a layered fashion using 0 and 2-0 Vicryls. Skin was closed using running 3-0 Monocryl and Dermabond. Sterile Adaptic, 4x4s , and paper tape were used to cover the incision. The patient was taken to the PACU in stable condit ion. Weightbearing will be weightbearing as tolerated. DVT prophylaxis will be Coumadin with a Love nox bridge. [id number]/[facility] #: [id number]
[2017-12-10] MEDS: oxyCODONE/Acetamin 5/325 MG* TAB PO PRN ×4 (04:10→17:18)
[2017-12-10] MEDS: Acetaminophen TAB* 325 MG PO SCH ×3 (04:11→21:43)
[2017-12-10 05:23] LABS: Hematocrit 29 % (35-47); Mean Platelet Volume 7.1 um3 (7.4-10.4); Platelet Count 199 10^3/ul (150-450)
[2017-12-10 05:29] LABS: INR 1.5 (0.77-1.02)
--- NOTE | 2017-12-10 08:18 | PN ---
Progress Note - Progress Note Date of Service: 12/10/17 SOAP: Subjective: resting comfortably with minimal complaints of pain Objective: Vital Signs Temp Pulse Resp BP Pulse Ox 98.3 F 76 16 96/46 100 12/10/17 07:31 12/10/17 07:31 12/10/17 07:31 12/10/17 07:31 12/10/17 07:31 Laboratory Last Values Hgb 10.0 g/dl (12.0-16.0) L 12/10/17 04:49 Hct 29 % (35-47) L 12/10/17 04:49 Plt Count 199 10^3/ul (150-450) 12/10/17 04:49 MPV 7.1 um3 (7.4-10.4) L 12/10/17 04:49 INR (Anticoag Therapy) 1.50 (0.77-1.02) H 12/10/17 04:49 Sodium 137 mmol/L (135-145) 12/09/17 05:02 Potassium 3.7 mmol/L (3.5-5.0) 12/09/17 05:02 Chloride 102 mmol/L (101-111) 12/09/17 05:02 Carbon Dioxide 32 mmol/L (22-32) 12/09/17 05:02 Anion Gap 3 mmol/L (2-11) 12/09/17 05:02 BUN 12 mg/dL (6-24) 12/09/17 05:02 Creatinine 0.50 mg/dL (0.51-0.95) L 12/09/17 05:02 Est GFR ( Amer) 147.6 (>60) 12/09/17 05:02 Est GFR (Non-Af Amer) 122.0 (>60) 12/09/17 05:02 BUN/Creatinine Ratio 24.0 (8-20) H 12/09/17 05:02 Glucose 125 mg/dL (70-100) H 12/09/17 05:02 Calcium 8.1 mg/dL (8.6-10.3) L 12/09/17 05:02 incision: c/d; dressing changed PE:NVI Assessment: s/p left MEREDITH; POD#2 Plan: 1) continue PT/OT- WBAT 2) hospitalist co-managing 3) Lovenox/coumadin for DVT prophylaxis; 6mg ordered for tonight 4) awaiting PMRU transfer
[2017-12-10] MEDS: Pregabalin CAP(*) 100 MG PO SCH ×3 (09:14→21:41)
[2017-12-10] MEDS: Venlafaxine EXT RELEASE CAP* 75 MG PO SCH (09:15)
[2017-12-10] MEDS: Docusate CAP* 100 MG PO SCH ×2 (09:15→21:41)
[2017-12-10] MEDS: Magnesium Hydroxide LIQ* 30 ML UDC PO SCH ×2 (09:17→21:41)
[2017-12-10] MEDS: Enoxaparin(*) 30 MG/0.3 ML SYR SUBCUT SCH (12:50)
[2017-12-10] MEDS: FLUTICASONE SALMETEROL INH SCH ×2 (12:50→21:42)
--- NOTE | 2017-12-10 12:57 | RAD ---
INDICATION: Evaluate for possible dislocation COMPARISON: Pelvis December 08, 2017 TECHNIQUE: An AP view of the pelvis and AP views of the hip in neutral and abducted position were obtained FINDINGS: Bones: There are no acute bony findings. Joint spaces: There is minor narrowing about the right hip. There is left hip arthroplasty. The prosthesis appears normally seated. SI joints/symphysis: The SI joints and symphysis are intact. Other: None IMPRESSION: THE LEFT HIP PROSTHESIS APPEARS NORMALLY SEATED
[2017-12-10] MEDS ORDERED: COPAXONE SUBCUT ONE (14:30)
[2017-12-10] MEDS ORDERED: Warfarin TAB(*) 6 MG PO ONE (17:00)
[2017-12-10] MEDS: Atorvastatin* 20 MG TAB PO SCH (17:11)
--- NOTE | 2017-12-10 17:46 | PN ---
Subjective Date of Service: 12/10/17 Interval History: right groin pain with muscle spasms. popping sensation this AM with transfer back into bed. Hip Xray wnl. some wheezing and SOB, improved with inhalers. not currently wheezing. MS symptoms are gait instability/off balance. Hx of optic neuritis copaxine brought from home and restarted. Objective Active Medications: Acetaminophen (Tylenol Tab*) 975 mg PO Q8H [facility] Last Admin: 12/10/17 12:53 Dose: Not Given Albuterol (Ventolin Hfa Inhaler*) 2 puff INH Q4H PRN PRN Reason: COPD Albuterol/Ipratropium (Combivent Respimat(Nf)) 2 puff INH RT.QID BRYANNA; Protocol Atorvastatin Calcium (Lipitor*) 20 mg PO QPM [facility] Last Admin: 12/10/17 17:11 Dose: 20 mg Bisacodyl (Dulcolax Supp*) 10 mg [place] DAILY PRN PRN Reason: constipation Cyclobenzaprine HCl (Flexeril Tab*) 5 mg PO TID PRN PRN Reason: SPASMS Last Admin: 12/08/17 23:09 Dose: 5 mg Diphenhydramine HCl (Benadryl Iv*) 12.5 mg IV Q6H PRN PRN Reason: PRURITIS Docusate Sodium (Colace Cap*) 100 mg PO BID [facility] Last Admin: 12/10/17 09:15 Dose: 100 mg Enoxaparin Sodium (Lovenox(*)) 30 mg SUBCUT Q24H [facility] Last Admin: 12/10/17 12:50 Dose: 30 mg Sodium Chloride (Ns 0.9% 1000 Ml*) 1,000 mls @ 500 mls/hr IV .ENTER RATE [facility] Last Admin: 12/09/17 17:07 Dose: 500 mls/hr Lactulose (Lactulose*) 30 ml PO Q6H PRN PRN Reason: constipation Last Admin: 12/10/17 04:14 Dose: 30 ml Magnesium Hydroxide (Milk Of Magnesia Liq*) 30 ml PO BID [facility] Last Admin: 12/10/17 09:17 Dose: 30 ml Magnesium Hydroxide (Milk Of Magnesia Liq*) 30 ml PO Q6H PRN PRN Reason: constipation Morphine Sulfate (Morphine Inj ((Syringe))*) 2 mg IV Q2H PRN PRN Reason: PAIN Ondansetron HCl (Zofran Inj*) 4 mg IV Q6H PRN PRN Reason: nausea Last Admin: 12/09/17 10:32 Dose: 4 mg Ondansetron HCl (Zofran Tab*) 4 mg PO Q6H PRN PRN Reason: NAUSEA Oxycodone HCl (Roxycodone Tab*) 10 mg PO Q4H PRN PRN Reason: SEVERE PAIN Last Admin: 12/09/17 02:36 Dose: 10 mg Oxycodone/Acetaminophen (Percocet 5/325 Tab*) 1 tab PO Q4H PRN PRN Reason: PAIN Oxycodone/Acetaminophen (Percocet 5/325 Tab*) 2 tab PO Q4H PRN PRN Reason: PAIN Last Admin: 12/10/17 17:18 Dose: 2 tab Pharmacy Profile Note (Coumadin Daily Reminder*) 1 note FOLLOW UP 1700 [facility] Last Admin: 12/10/17 17:23 Dose: 1 note Polyethylene Glycol/Electrolytes (Miralax*) 17 gm PO DAILY PRN PRN Reason: Constipation Pregabalin (Lyrica Cap(*)) 100 mg PO TID [facility] Last Admin: 12/10/17 14:11 Dose: 100 mg Fluticasone/Salmeterol (Advair Diskus 500-50*) 1 puff INH BID [facility] Last Admin: 12/10/17 12:50 Dose: 1 puff Venlafaxine HCl (Effexor Xr Cap*) 150 mg PO DAILY [facility] Last Admin: 12/10/17 09:15 Dose: 150 mg Vital Signs - 8 hr 12/10/17 12/10/17 12/10/17 11:23 12:11 12:50 Temperature 97.7 F Pulse Rate 81 Respiratory 16 16 16 Rate Blood Pressure 117/54 (mmHg) O2 Sat by Pulse 98 Oximetry 12/10/17 12/10/17 12/10/17 14:11 15:35 16:06 Temperature 98.7 F Pulse Rate 81 Respiratory 16 16 18 Rate Blood Pressure 98/52 (mmHg) O2 Sat by Pulse 100 Oximetry 12/10/17 12/10/17 17:12 17:18 Temperature Pulse Rate Respiratory 16 16 Rate Blood Pressure (mmHg) O2 Sat by Pulse Oximetry Oxygen Devices in Use Now: Nasal Cannula Appearance: NAD Eyes: No Scleral Icterus, PERRLA Respiratory: Symmetrical Chest Expansion and Respiratory Effort, - - fine crackles b/l bases. no wheezing or rhonchi. Abdominal: - - soft, nontender, slightly distended. Extremities: No Edema Skin: No Rash or Ulcers Neurological: Alert and Oriented x 3, NL Sensation, NL Muscle Strength and Tone Nutrition: Taking PO's Result Diagrams: 12/10/17 04:49 12/09/17 05:02 Additional Lab and Data: Laboratory Results - last 24 hr 12/10/17 12/10/17 04:49 04:49 Hgb 10.0 L Hct 29 L Plt Count 199 MPV 7.1 L INR (Anticoag Therapy) 1.50 H Assess/Plan/Problems-Billing Assessment: 71 year old female PMH COPD, OA, MS that presented for elective left total hip arthroplasty on 12/08, POD2. Planned to PMRU - Patient Problems (1) COPD (chronic obstructive pulmonary disease) Current Visit: Yes Status: Acute Code(s): J44.9 - CHRONIC OBSTRUCTIVE PULMONARY DISEASE, UNSPECIFIED SNOMED Code(s): 12134352 Comment: - Continue home meds. Combivent and Advair. nebs as needed. not in exacerbation. (2) DVT prophylaxis Current Visit: Yes Status: Acute Code(s): BRQ4544 - SNOMED Code(s): 375777556 Comment: - lovenox to Coumadin bridge as per ortho. INR 1.5. repeat daily. (3) Full code status Current Visit: Yes Status: Acute Code(s): Z78.9 - OTHER SPECIFIED HEALTH STATUS SNOMED Code(s): 118410131 (4) Status post total hip replacement, left Current Visit: Yes Status: Acute Code(s): Z96.642 - PRESENCE OF LEFT ARTIFICIAL HIP JOINT SNOMED Code(s): 608941568822 Comment: - POC as per orthopedics - POD2, pain control, OOB with PT/OT, bowel regimen - Hip precautions (5) Multiple sclerosis Current Visit: Yes Status: Acute Code(s): G35 - MULTIPLE SCLEROSIS SNOMED Code(s): 34794212 Comment: continue copaxone tue, tue, saturdays. Status and Disposition: ortho inpatient, medicine consulting. Planned PMRU disposition.
[2017-12-10] MEDS ORDERED: Albuterol/Ipratropium NEB.SOL* Albuterol 2.5 MG/Ipratropium 0.5 MG 3 ML INH SCH (18:00)
[2017-12-10] MEDS: PTO: Albuterol/Ipratropium RESP(NF) MDI (Combivent Respimat) INH SCH ×2 (18:03→21:42)
[2017-12-10] MEDS ORDERED: Albuterol/Ipratropium RESP(NF) MDI (Combivent Respimat) INH SCH (19:00)
[2017-12-11] MEDS: oxyCODONE/Acetamin 5/325 MG* TAB PO PRN (03:52)
[2017-12-11] MEDS: Acetaminophen TAB* 325 MG PO SCH (03:52)
[2017-12-11 05:45] LABS: Hematocrit 30 % (35-47); Hemoglobin 10.3 g/dl (12.0-16.0); Mean Platelet Volume 7.4 um3 (7.4-10.4); Platelet Count 216 10^3/ul (150-450)
[2017-12-11 05:49] LABS: INR 2.39 (0.77-1.02)
[2017-12-11 06:04] LABS: EGFR Non-African American 153.4 (>60)
[2017-12-11 08:02] VITALS: BP 118/65
--- NOTE | 2017-12-11 08:09 | PN ---
Progress Note - Progress Note Date of Service: 12/11/17 SOAP: Subjective: resting comfortably with only mild complaints of pain Objective: Vital Signs Temp Pulse Resp BP Pulse Ox 97.8 F 86 12 118/65 99 12/11/17 07:27 12/11/17 07:27 12/11/17 07:27 12/11/17 07:27 12/11/17 07:27 Laboratory Last Values Hgb 10.3 g/dl (12.0-16.0) L 12/11/17 05:07 Hct 30 % (35-47) L 12/11/17 05:07 Plt Count 216 10^3/ul (150-450) 12/11/17 05:07 MPV 7.4 um3 (7.4-10.4) 12/11/17 05:07 INR (Anticoag Therapy) 2.39 (0.77-1.02) H 12/11/17 05:07 Sodium 137 mmol/L (135-145) 12/09/17 05:02 Potassium 3.7 mmol/L (3.5-5.0) 12/09/17 05:02 Chloride 102 mmol/L (101-111) 12/09/17 05:02 Carbon Dioxide 32 mmol/L (22-32) 12/09/17 05:02 Anion Gap 3 mmol/L (2-11) 12/09/17 05:02 BUN 14 mg/dL (6-24) 12/11/17 05:07 Creatinine 0.41 mg/dL (0.51-0.95) L 12/11/17 05:07 Est GFR ( Amer) 185.6 (>60) 12/11/17 05:07 Est GFR (Non-Af Amer) 153.4 (>60) 12/11/17 05:07 BUN/Creatinine Ratio 24.0 (8-20) H 12/09/17 05:02 Glucose 125 mg/dL (70-100) H 12/09/17 05:02 Calcium 8.1 mg/dL (8.6-10.3) L 12/09/17 05:02 incision: c/d PE: NVI Assessment: s/p left MEREDITH Plan: 1) pt/ot- wbat 2) Lovenox/coumadin for DVT prophylaxis; will hold coumadin tonight and recheck INR Tuesday 3) transfer to [facility] today
[2017-12-11] MEDS: FLUTICASONE SALMETEROL INH SCH (08:46)
[2017-12-11] MEDS: Ondansetron INJ* 2 MG/ML VIAL IV PRN (09:16)
[2017-12-11] MEDS: Venlafaxine EXT RELEASE CAP* 75 MG PO SCH (09:35)
[2017-12-11] MEDS: Pregabalin CAP(*) 100 MG PO SCH (09:36)
[2017-12-11] MEDS: PTO: Albuterol/Ipratropium RESP(NF) MDI (Combivent Respimat) INH SCH (09:36)
[2017-12-11] MEDS: Magnesium Hydroxide LIQ* 30 ML UDC PO SCH (09:36)
[2017-12-11] MEDS: Docusate CAP* 100 MG PO SCH (09:36)
--- NOTE | 2017-12-11 22:53 | DS ---
DISCHARGE SUMMARY: DATE OF ADMISSION: 12/08/17. DATE OF DISCHARGE: 12/11/17. ATTENDING PROVIDER: Dr. Guzman * (DICTATED BY PENELOPE FIGUEROA) PRINCIPAL DIAGNOSIS: End-stage osteoarthritis of the left hip. DISCHARGE DIAGNOSIS: End-stage osteoarthritis of the left hip. HISTORY OF PRESENT ILLNESS: Ms. Cleary is a 71-year-old female with end-stage osteoarthritis of her left hip. She had failed conservative treatment and elected to proceed with a left total hip arthroplasty. HOSPITAL COURSE: She was admitted electively to the hospital on 12/08/17 and underwent a left total hip arthroplasty. She tolerated the procedure well. Postoperatively, she was placed on Lovenox and Coumadin for DVT prophylaxis. On postoperative day 1, her H and H were 10 and 31; on postoperative day 2, 10 and 29; on postoperative day 3, 10 and 30. Her INR went from 1.06 on postoperative day 1 to 2.39 on postoperative day 3. She remained afebrile and she was transferred to [facility] for continued inpatient rehabilitation. DISCHARGE MEDICATIONS: 1. Percocet 5/325, 1 to 2 tabs every 4 to 6 hours for pain. 2. Coumadin 2 mg tabs nightly at 5 p.m. 3. Ventolin inhaler, Respimat. 4. Lipitor 20 mg daily. 5. Lyrica 100 mg 3 times a day. 6. Advair Diskus. 7. Effexor 150 mg daily. PHYSICAL EXAMINATION: Upon discharge, the incision was clean, dry, and healing well. There were no signs of infection. She was ambulating with the aid of a walker. She was able to dorsiflex and plantar flex. She had intact sensation and 2+ dorsalis pedis pulse. She was afebrile and her vital signs were stable. DISCHARGE INSTRUCTIONS: She was transferred to [facility] for continued inpatient rehab. She will remain on Coumadin for DVT prophylaxis. Her INR today was 2.39. We will hold it tonight and her INR will be rechecked on Tuesday for continued dosing. She will have Percocet as needed for pain. At this time, she can start taking a shower, but no baths. At this point, just let soap and water run over the incision and pat the area dry. She is weightbearing as tolerated. She will continue her posterior hip precautions and follow with Dr. Guzman in 2 weeks. PENELOPE FIGUEROA [id number]/[facility] #: [id number] TOM
== END 2017-12-11 11:00 | DRG 470 ==
LOC: AA 12-08 07:56 → SSU 12-08 13:39
PROVIDERS: ADMIT Orthopaedic Surgery Adult Reconstructive Orthopaedic Surgery; ATTEND Internal Medicine
PROC: 0SRB03A Replacement of Left Hip Joint with Ceramic Synthetic Substitute, Uncemented, Open Approach (ICD-10-PCS; principal; 2017-12-08 09:00)
DX: M16.12 Unilateral primary osteoarthritis, left hip (principal); M81.0 Age-related osteoporosis without current pathological fracture; E78.00 Pure hypercholesterolemia, unspecified; J44.9 Chronic obstructive pulmonary disease, unspecified; G35 Multiple sclerosis; E03.9 Hypothyroidism, unspecified; F32.9 Major depressive disorder, single episode, unspecified; F41.9 Anxiety disorder, unspecified; Z79.82 Long term (current) use of aspirin; Z79.899 Other long term (current) drug therapy; Z88.1 Allergy status to other antibiotic agents; Z88.2 Allergy status to sulfonamides; Z82.3 Family history of stroke; Z82.61 Family history of arthritis
CPT/HCPCS: 36415; 72170; 80048; 82565; 84520; 85014; 85018; 85049; 85610; 88304; 88311; 94060; 94640; 94726; 94729; A9270-GY; C1713; C1776; G0297-52; G8978-GP-CK; G8979-GP-CI; G8987-GO-CL; G8988-GO-CI; J1100; J1650; J1885; J2250; J2270; J2405; J2704; J3010

== ENCOUNTER 2017-12-11 10:17 | Inpatient (IN) | payer MEDICARE, OTHER ==
[2017-12-11] MEDS ORDERED: Acetaminophen TAB* 325 MG PO PRN (13:15)
[2017-12-11] MEDS ORDERED: Senna TAB PO PRN (13:15)
[2017-12-11] MEDS ORDERED: Magnesium Hydroxide LIQ* 30 ML UDC PO PRN (13:15)
[2017-12-11] MEDS: Pregabalin CAP(*) 100 MG PO SCH ×2 (14:09→21:01)
[2017-12-11] MEDS ORDERED: PTO:Albuterol HFA INHALER* 8 gm MDI INH PRN (14:12)
[2017-12-11] MEDS ORDERED: PTO:Albuterol HFA INHALER* 8 gm MDI INH SCH (15:00)
[2017-12-11] MEDS: PTO:Albuterol/Ipratropium RESP(NF) MDI (Combivent Respimat) INH SCH ×2 (16:09→19:26)
[2017-12-11] MEDS ORDERED: Warfarin TAB(*) 1 MG PO SCH (17:00)
[2017-12-11] MEDS ORDERED: Warfarin TAB(*) 2 MG PO SCH (17:00)
[2017-12-11] MEDS: Atorvastatin* 20 MG TAB PO SCH (17:19)
[2017-12-11] MEDS: Polyethylene Glycol 3350* 17 GM PACKET PO PRN (17:24)
[2017-12-11] MEDS: Fluticasone-Salmeterol 500-50* DISKUS INH SCH (19:26)
--- NOTE | 2017-12-11 19:42 | HP ---
ADMISSION HISTORY AND PHYSICAL: DATE OF ADMISSION: 12/11/17 REASON FOR ADMISSION: Left total hip replacement; multiple sclerosis. HISTORY OF PRESENT ILLNESS: Nabila Cleary is a 71-year-old female. She has a medical history significant for multiple sclerosis diagnosed many years ago. She takes Copaxone injections 3 times a week. Her neurologist is Dr. Mckeon. The patient has done fairly well. She is able to ambulate without the use of a cane or a walker. The patient has had significant pain in her left hip for many years. She had sought out consultation with Dr. Guzman. X-rays were done, which showed end- stage osteoarthritis. It was decided she should have a left total hip replacement. She was admitted to [facility] on 12/08/17 and underwent a total hip replacement that day. Postoperatively, her course has been fairly benign. She is now being admitted for inpatient rehab so that she might return to independent living. PAST MEDICAL HISTORY: Includes COPD. She has a history of RSD of the right foot. She has had a DVT in the past after she broke her left foot. She has a history of osteoporosis as well as a history of multiple sclerosis. CURRENT MEDICATIONS: Include: 1. Copaxone. 2. Lipitor. 3. She is on a Combivent inhaler. 4. Percocet. 5. Lyrica for RSD. 6. Advair Diskus. 7. Effexor. 8. Coumadin. ALLERGIES: The patient has allergies to AUGMENTIN and SULFA. SOCIAL HISTORY: She is a nonsmoker and nondrinker. She lives with her in a 1-story house. There are 9 steps to enter. REVIEW OF SYSTEMS: The patient reports no current shortness of breath or chest pain. PHYSICAL EXAMINATION VITAL SIGNS: The patient's temperature is 98.0, blood pressure is 113/62, pulse 89, respirations 18. HEENT: Her extraocular movements are intact. Tongue is midline. NECK: Supple. LUNGS: Sound clear to auscultation bilaterally. HEART: Sounds are regular. S1 and S2 are audible. ABDOMEN: Soft and nontender. EXTREMITIES: Her left hip has a wound, which is clean and dry. Peripheral pulses are intact. NEUROLOGIC: Sensation appears to be intact. Muscle strength is 5/5 except the left leg, which is 3/5 secondary to pain. FUNCTIONAL EXAM: The patient transfers with min assist. ASSESSMENT: Left total hip replacement in a patient with multiple sclerosis. PLAN: Integrate her into comprehensive and therapeutic rehab program on the following goals: 1. Physical Therapy will work with the patient. They are going to work on functional transfer training, ambulation training with a walker. 2. Occupational Therapy will see the patient, work on her activities of daily living including toileting and toilet transfers. 3. Coumadin for DVT prophylaxis. 4. Adequate analgesia. 5. Her bowels will be regulated. 6. We will continue Copaxone for her MS. 7. For her RSD, we are going to continue her Lyrica. 8. For her COPD, we will continue her Advair inhaler as well as her Combivent. She is also on supplemental oxygen at this time. 9. Family training as appropriate. 10. instructor ground services will be closely involved to make sure that any services and equipment the patient requires are in place prior to discharge. 11. Home with appropriate services. ESTIMATED LENGTH OF STAY: 10 days. [id number]/[facility] #: [id number] TOM
[2017-12-11] MEDS: Docusate CAP* 100 MG PO SCH (21:03)
[2017-12-11] MEDS: Carisoprodol TAB* 350 MG PO PRN (23:08)
[2017-12-11] MEDS: oxyCODONE/Acetamin 5/325 MG* TAB PO PRN (23:08)
[2017-12-12 05:48] LABS: ABS Basophils 0 10^3/ul (0-0.2); ABS Eosinophils 0.2 10^3/ul (0-0.6); ABS Lymphocytes 0.8 10^3/ul (1.0-4.8); ABS Monocytes 0.7 10^3/ul (0-0.8); ABS Neutrophils 4.6 10^3/ul (1.5-7.7); ABS Nucleated RBC 0 10^3/ul; Eosinophil % 2.6 % (0-6); Hematocrit 29 % (35-47); Hemoglobin 9.9 g/dl (12.0-16.0); Lymphocyte % 13.1 % (25-47); Mean Corpuscular HGB Conc 34 g/dl (31-36); Mean Corpuscular Hemoglobin 32 pg (27-31); Mean Corpuscular Volume 94 fL (80-97); Mean Platelet Volume 7.4 um3 (7.4-10.4); Nucleated Red Blood Cells % 0; Platelet Count 239 10^3/ul (150-450); Red Blood Count 3.08 10^6/ul (4.00-5.40); Red Cell Distribution Width 14 % (10.5-15); White Blood Count 6.3 10^3/ul (3.5-10.8)
[2017-12-12 05:56] LABS: INR 3.46 (0.77-1.02)
[2017-12-12] MEDS: Carisoprodol TAB* 350 MG PO PRN ×3 (05:56→22:22)
[2017-12-12] MEDS: oxyCODONE/Acetamin 5/325 MG* TAB PO PRN ×2 (05:56→23:51)
[2017-12-12 06:09] LABS: EGFR Non-African American 178.2 (>60)
[2017-12-12] MEDS: Docusate CAP* 100 MG PO SCH ×2 (08:43→20:34)
[2017-12-12] MEDS: Venlafaxine EXT RELEASE CAP* 75 MG PO SCH (08:43)
[2017-12-12] MEDS: Fluticasone-Salmeterol 500-50* DISKUS INH SCH ×2 (08:44→20:33)
[2017-12-12] MEDS: Pregabalin CAP(*) 100 MG PO SCH ×3 (08:45→21:27)
[2017-12-12] MEDS: GLATIRAMER 40 MG/ML SUBCUT SCH ×3 (09:00→18:11)
[2017-12-12] MEDS: PTO:Albuterol/Ipratropium RESP(NF) MDI (Combivent Respimat) INH SCH ×3 (12:32→20:27)
[2017-12-12] MEDS ORDERED: Warfarin TAB(*) 2 MG PO SCH (17:00)
[2017-12-12] MEDS: Atorvastatin* 20 MG TAB PO SCH (17:15)
--- NOTE | 2017-12-12 17:24 | PN ---
Progress Note Date of Service: 12/12/17 Note: HUMBERTO FELDMAN was visited. Therapy notes read and reviewed. Last night, her daughter was concerned she might have a DVT in her left leg. It was explained to the daughter that she is already anti-coagulated. She received 6 mg of COumadin on December 09 and , and 1 mg last night. The bump in her INR is from the 6 mg doses. She has right rib pain. A rib series x-ray was ordered. Current Medications: Active Medications Generic Name Dose Route Start Last Admin Trade Name Freq PRN Reason Stop Dose Admin Acetaminophen 650 mg 12/11/17 13:15 12/12/17 17:15 Tylenol Tab* PO 650 mg Q6H PRN Administration FEVER/PAIN Albuterol 2 puff 12/11/17 14:12 Ventolin Hfa Inhaler* INH Q4H PRN SOB/WHEEZING Albuterol/Ipratropium 2 puff 12/11/17 15:00 12/12/17 15:34 Combivent Respimat(Nf) INH 2 puff RT.QID BRYANNA Administration Protocol Atorvastatin Calcium 20 mg 12/11/17 17:00 12/12/17 17:15 Lipitor* PO 20 mg 1700 BRYANNA Administration Carisoprodol 350 mg 12/12/17 14:28 Soma Tab* PO Q8H PRN SPASMS Docusate Sodium 100 mg 12/11/17 21:00 12/12/17 08:43 Colace Cap* PO 100 mg BID BRYANNA Administration Glatiramer Acetate 40 mg 12/12/17 09:00 12/12/17 09:00 Copaxone(Nf) SUBCUT Not Given MOWEFR BRYANNA Magnesium Hydroxide 30 ml 12/11/17 13:15 Milk Of Magnesia Liq* PO Q6H PRN CONSTIPATION Oxycodone/Acetaminophen 2 tab 12/11/17 13:21 Percocet 5/325 Tab* PO Q4H PRN PAIN - SEVERE Oxycodone/Acetaminophen 1 tab 12/11/17 13:23 12/12/17 05:56 Percocet 5/325 Tab* PO 1 tab Q4H PRN Administration PAIN - MODERATE TO SEVERE Polyethylene Glycol/Electrolytes 17 gm 12/11/17 15:20 12/11/17 17:24 Miralax* PO 17 gm DAILY PRN Administration CONSTIPATION Pregabalin 100 mg 12/11/17 14:00 12/12/17 13:24 Lyrica Cap(*) PO 100 mg TID BRYANNA Administration Fluticasone/Salmeterol 1 puff 12/11/17 21:00 12/12/17 08:44 Advair Diskus 500-50* INH 1 puff BID BRYANNA Administration Senna 2 tab 12/11/17 13:15 Senokot Tab* PO BEDTIME PRN CONSTIPATION Venlafaxine HCl 150 mg 12/12/17 09:00 12/12/17 08:43 Effexor Xr Cap* PO 150 mg DAILY BRYANNA Administration Warfarin Sodium 2 mg 12/12/17 17:00 12/12/17 17:15 Coumadin Tab(*) PO 2 mg DAILY@1700 BRYANNA Administration Protocol Vital Signs: Vital Signs Temp Pulse Resp BP Pulse Ox 98.4 F 87 18 130/60 98 12/12/17 16:05 12/12/17 16:05 12/12/17 16:05 12/12/17 16:05 12/12/17 16:05 Lab Results: Laboratory Results - last 24 hr 12/12/17 12/12/17 12/12/17 05:18 05:18 05:22 WBC 6.3 RBC 3.08 L Hgb 9.9 L Hct 29 L MCV 94 MCH 32 H MCHC 34 RDW 14 Plt Count 239 MPV 7.4 Neut % (Auto) 73.0 Lymph % (Auto) 13.1 L Pitkin % (Auto) 10.7 H Eos % (Auto) 2.6 Baso % (Auto) 0.6 Absolute Neuts (auto) 4.6 Absolute Lymphs (auto) 0.8 L Absolute Monos (auto) 0.7 Absolute Eos (auto) 0.2 Absolute Basos (auto) 0 Absolute Nucleated RBC 0 Nucleated RBC % 0 INR (Anticoag Therapy) 3.46 H Sodium 136 Potassium 4.6 Chloride 102 Carbon Dioxide 32 Anion Gap 2 BUN 10 Creatinine 0.36 L Est GFR ( Amer) 215.6 Est GFR (Non-Af Amer) 178.2 BUN/Creatinine Ratio 27.8 H Glucose 102 H Calcium 8.1 L Total Bilirubin 0.40 AST 50 H ALT 70 H Alkaline Phosphatase 87 Total Protein 5.1 L Albumin 2.9 L Globulin 2.2 Albumin/Globulin Ratio 1.3 Exam: LUNGS: clear HEART: reg rhythm ABDOMEN: Soft EXTREMITIES: Left leg wound C/D/I NEUROLOGIC: Alert and oriented. Motor exam non focal Assessment/Plan: 1. Left MEREDITH: PT/OT 2. Multiple Sclerosis: Copaxone 3. COPD: Combivent/Advair 4. History of CRPS: Lyrica 5. Depression: Effexor 6. DVT Prophylaxis: Coumadin 7. Advanced Directives: full code 12/12/17 17:21
[2017-12-13 05:31] LABS: INR 2.1 (0.77-1.02)
--- NOTE | 2017-12-13 08:36 | RAD ---
Indication: Right rib pain. 3 views of the right ribs are reviewed. There is no fracture or dislocation. No pneumothorax is noted. IMPRESSION: No fracture of the ribs is noted.
[2017-12-13] MEDS: Venlafaxine EXT RELEASE CAP* 75 MG PO SCH (08:49)
[2017-12-13] MEDS: Pregabalin CAP(*) 100 MG PO SCH ×3 (08:49→20:39)
[2017-12-13] MEDS: Docusate CAP* 100 MG PO SCH ×2 (08:50→19:26)
[2017-12-13] MEDS: Fluticasone-Salmeterol 500-50* DISKUS INH SCH ×2 (08:51→21:10)
[2017-12-13] MEDS: oxyCODONE/Acetamin 5/325 MG* TAB PO PRN ×2 (11:07→21:49)
[2017-12-13] MEDS: PTO:Albuterol/Ipratropium RESP(NF) MDI (Combivent Respimat) INH SCH ×4 (11:08→20:46)
--- NOTE | 2017-12-13 11:44 | PN ---
Progress Note Date of Service: 12/13/17 Note: HUMBERTO FELDMAN was visited. Therapy notes read and reviewed. She will be discussed in interdisciplinary team rounds later today. Her ribs series x-ray was negative. Breathing ok. INR has dropped as I suspected it would. Will increase Coumadin to 3 and watch. Current Medications: Active Medications Generic Name Dose Route Start Last Admin Trade Name Freq PRN Reason Stop Dose Admin Acetaminophen 650 mg 12/11/17 13:15 12/12/17 17:15 Tylenol Tab* PO 650 mg Q6H PRN Administration FEVER/PAIN Albuterol 2 puff 12/11/17 14:12 Ventolin Hfa Inhaler* INH Q4H PRN SOB/WHEEZING Albuterol/Ipratropium 2 puff 12/11/17 15:00 12/13/17 11:10 Combivent Respimat(Nf) INH Not Given RT.QID [facility] Protocol Atorvastatin Calcium 20 mg 12/11/17 17:00 12/12/17 17:15 Lipitor* PO 20 mg 1700 BRYANNA Administration Carisoprodol 350 mg 12/12/17 14:28 12/12/17 22:22 Soma Tab* PO 175 mg Q8H PRN Administration SPASMS Docusate Sodium 100 mg 12/11/17 21:00 12/13/17 08:50 Colace Cap* PO Not Given BID BRYANNA Glatiramer Acetate 40 mg 12/12/17 09:00 12/12/17 18:11 Copaxone(Nf) SUBCUT 40 mg MOWEFR BRYANNA Administration Magnesium Hydroxide 30 ml 12/11/17 13:15 Milk Of Magnesia Liq* PO Q6H PRN CONSTIPATION Oxycodone/Acetaminophen 2 tab 12/11/17 13:21 Percocet 5/325 Tab* PO Q4H PRN PAIN - SEVERE Oxycodone/Acetaminophen 1 tab 12/11/17 13:23 12/13/17 11:07 Percocet 5/325 Tab* PO 1 tab Q4H PRN Administration PAIN - MODERATE TO SEVERE Polyethylene Glycol/Electrolytes 17 gm 12/11/17 15:20 12/11/17 17:24 Miralax* PO 17 gm DAILY PRN Administration CONSTIPATION Pregabalin 100 mg 12/11/17 14:00 12/13/17 08:49 Lyrica Cap(*) PO 100 mg TID BRYANNA Administration Fluticasone/Salmeterol 1 puff 12/11/17 21:00 12/13/17 08:51 Advair Diskus 500-50* INH 1 puff BID BRYANNA Administration Senna 2 tab 12/11/17 13:15 Senokot Tab* PO BEDTIME PRN CONSTIPATION Venlafaxine HCl 150 mg 12/12/17 09:00 12/13/17 08:49 Effexor Xr Cap* PO 150 mg DAILY BRYANNA Administration Warfarin Sodium 3 mg 12/13/17 17:00 Coumadin Tab(*) PO DAILY@1700 [facility] Protocol Vital Signs: Vital Signs Temp Pulse Resp BP Pulse Ox 97.9 F 89 18 120/60 98 12/13/17 04:59 12/13/17 04:59 12/13/17 11:11 12/13/17 04:59 12/13/17 04:59 Lab Results: Laboratory Results - last 24 hr 12/13/17 04:40 INR (Anticoag Therapy) 2.10 H Exam: HEENT: O2 via NC LUNGS: clear HEART: reg rhythm ABDOMEN: Soft EXTREMITIES: Left leg wound C/D/I NEUROLOGIC: Alert and oriented. Motor exam non focal Assessment/Plan: 1. Left MEREDITH: PT/OT. WBAT. Follow up with Dr. Guzman 2. Multiple Sclerosis: Copaxone 3. COPD: Combivent/Advair. Supplemental O2 4. History of CRPS: Lyrica 5. Depression: Effexor 6. DVT Prophylaxis: Coumadin 7. Advanced Directives: full code 8. Spasms: Soma. Try to avoid Soma during day as it is sedating 12/13/17 11:44
--- NOTE | 2017-12-13 12:25 | PMRUTEAM ---
PMRU: Team Meeting Current Status: Nursing: Current Status Skin Deviations [Bilateral Other Buttocks] Skin Deviations [Left Hip] Incision Skin Deviation Description [ area pink. lotion applied. Bilateral Buttocks] Skin Deviation Description [ drsg changed for moderate amount of serosang Left Hip] drainage distally. incision washed with soap and water, telfa, 4x4's and ABD pad applied Physical Therapy: Current Status Bed Mobility Assistance Mod Assist,Max Assist Transfer Moblility Assistance Supervision Transfer/Bed Mobility Rolling Walker Recommended Devices Transfer Mobility Comment Slow and cautious and safe. Ambulation Assistance Contact Guard Ambulation Assistive Devices Rolling Walker Number of Feet Patient 150' Ambulated Ambulation Comment Antalgic step to to step thru reciprocaol type gait pattern. Stairs Assistance Supervision Stairs Recommended Devices Two Rails Number of Stairs 10 Occupational Therapy: Current Status Upper Body Dressing Supervision Lower Body Dressing Mod Assist Bathing Mod Assist Toileting Min Assist Toilet Transfer Contact Guard Assist Shower Transfer Contact Guard Assist Eating Independent Rec Therapy: Current Status Summary of Assessment and Pt. appeared tired in conversation but answered Clinical Impression questions. Pt. states she enjoys her life and was able to identify with interests. Pt. was open to word search puzzles and some were provided to her . Treatment Goals Pt. will engage in leisure activities as tolerated . Treatment Plan Provide RT services and encourage involvement. Social Work: Current Status Discharge Plan return home with home care svs and family support Potential for Family Training pt's family is involved and supportive Anticipated Discharge Home Destination Discharge With home care svs and family support Nutrition: Current Status Monitoring Pt adm for rehab post L THR, hx MS, COPD. Intake relatively good (30-80%) but w/consideration for lean weight (BMI 18.2) will follow to [facility] po and support appropriate weight gain. No skin breakdown, bowel issues noted. Goals: Physical Therapy: Initial Goals Bed Mobility Assistance Independent Transfer Mobility Assistance Independent Transfer/Bed Mobility Rolling Walker Recommended Devices Ambulation Independent Ambulation Recommended Devices Rolling Walker Ambulation Distance 150 Stairs Assistance Independent Stair Recommended Devices One Rail Number of Stairs 10 Physical Therapy: Updated Goals Bed Mobility Assistance Independent Transfer Mobility Assistance Independent Transfer/Bed Mobility Rolling Walker Recommended Devices Ambulation Assistance Independent Ambulation Assistive Devices Rolling Walker Ambulation Distance (ft) 150 Stairs Assistance Independent Stairs Recommended Devices One Rail Number of Stairs 10 Occupational Therapy: Initial Goals Goals to be Completed in (Days 7-10 days ) Upper Body Bathing Routine Modified Independent with Lower Body Bathing Routine Modified Independent with Upper Body Dressing Routine Independent Lower Body Dressing Routine Modified Independent with Toilet Hygeine and Clothing Modified Independent with Management Routine Toilet Transfer Routine Modified Independent with Tub Transfer Routine Modified Independent with Functional Transfers for ADL Modified Independent with Grooming Routine Independent Feeding Routine Independent Nutrition: Goals Intervention Goals 1. Achieve/maintain adequate oral intake to support maintenance of lean body mass, promote weight gain to >120 lbs. Social Work: Goals Discharge Plan return home with home care svs and family support Potential for Family Training pt's family is involved and supportive Anticipated Discharge Home Destination Discharge With home care svs and family support Care Plan: Care Plan ADL's - Improve/Maintain Start: 12/13/17 10:35 Freq: DAILY Status: Active Target: Protocol: Activity Type Activity Date Activity User E-Sign Co-Sign Detail Recorded Client Recorded Date Recorded By Document 12/13/17 10:35 [id number] [id number] 12/13/17 10:35 [id number] 12/13/17 10:35 PMRU Outcome: ADL's/ADL Transfers Orders/Interventions Occupational Therapy Evaluation & Treatment Device Yes Patient to receive OT 5x/wk for 60-120 Therex min/day UE/LE ADL's with Assist Yes ADL Transfers with Assist Yes Toileting: Transfers,Clothing Management Yes ,Hygeine w/Assist Light Kitchen/Laundry w/Assist Yes Progression Toward Outcome/Goals Progressing Outcome/Goals Met Pt. demonstrates increased independence with LB dressing with the use of AE. Pt. continues to be limited by LOB towards the R throughout tx session 4 times . DVT Prophylaxis- Improve/Maintain Start: 12/11/17 16:38 Freq: QSHIFT Status: Active Target: Protocol: Activity Type Activity Date Activity User E-Sign Co-Sign Detail Recorded Client Recorded Date Recorded By Document 12/13/17 02:02 [id number] 12/13/17 02:03 [id number] 12/13/17 02:02 PMRU Outcome: DVT Prophylaxis Outcome/Goals Remains Free of DVT Complies with DVT Prophylaxis /Treatment TEDS Stockings on Every AM, Off at HS Other Other Outcome/Goals SCDs at night Progression Toward Outcome/Goals Progressing Discharge Planning - Improve/Maintain Start: 12/11/17 16:38 Freq: DAILY Status: Active Target: Protocol: Activity Type Activity Date Activity User E-Sign Co-Sign Detail Recorded Client Recorded Date Recorded By Document 12/13/17 02:02 [id number] 12/13/17 02:03 [id number] 12/13/17 02:02 PMRU Outcome: Discharge Planning Update Patient Family Yes Outcome/Goals Demonstrates Understanding of Discharge Plan Progression Toward Outcome/Goals Progressing Education-Improve/Maintain Start: 12/11/17 16:38 Freq: QSHIFT Status: Active Target: Protocol: Activity Type Activity Date Activity User E-Sign Co-Sign Detail Recorded Client Recorded Date Recorded By Document 12/13/17 02:02 [id number] 12/13/17 02:03 [id number] 12/13/17 02:02 PMRU Outcome: Education Outcome/Goals Encourage Questions Progression Toward Outcome/Goals Progressing Neurological- Improve/Maintain Start: 12/11/17 16:38 Freq: QSHIFT Status: Active Target: Protocol: Activity Type Activity Date Activity User E-Sign Co-Sign Detail Recorded Client Recorded Date Recorded By Document 12/13/17 02:02 [id number] 12/13/17 02:03 [id number] 12/13/17 02:02 PMRU Outcome: Neurological Weakness/Aphasia Weakness Left Side Weakness/Aphasia Comment generalized weakness Outcome/Goals Maintain/ Achieve Baseline Neurological Status Improve Neurological Status Prevent Avoidable Neurological Decline Demonstrate Knowledge of Prevention/Tx of Neuro Disorders/ Complication Maintain/ Improve Strength/ROM Progression Toward Outcome/Goals Progressing Pain/Comfort- Improve/Maintain Start: 12/11/17 16:38 Freq: QSHIFT Status: Active Target: Protocol: Activity Type Activity Date Activity User E-Sign Co-Sign Detail Recorded Client Recorded Date Recorded By Document 12/13/17 02:02 [id number] 12/13/17 02:03 [id number] 12/13/17 02:02 PMRU Outcome: Pain/Comfort Outcome/Goals Achieves Acceptable Comfort/Pain Level as Determined by Patient/Condit Progression Toward Outcome/Goals Progressing Outcome/Goals Met Comment pain medication given Safety- Improve/Maintain Start: 12/11/17 16:38 Freq: QSHIFT Status: Active Target: Protocol: Activity Type Activity Date Activity User E-Sign Co-Sign Detail Recorded Client Recorded Date Recorded By Document 12/13/17 02:02 [id number] 12/13/17 02:03 [id number] 12/13/17 02:02 PMRU Outcome: Safety Outcome/Goals Remain Free of Injury or Harm Cooperates with Safety Measures for Least Restrictive Environment Prevent Falls/ Injury Progression Toward Outcome/Goals Progressing Outcome/Goals Met Comment PA in place Skin- Improve/Maintain Start: 12/11/17 16:38 Freq: QSHIFT Status: Active Target: Protocol: Activity Type Activity Date Activity User E-Sign Co-Sign Detail Recorded Client Recorded Date Recorded By Document 12/13/17 02:02 [id number] 12/13/17 02:03 [id number] 12/13/17 02:02 PMRU Outcome: Skin Skin Risk Level Low Skin Orders Dressing Change Air Mattress Turn/Position q2hr While in Bed Outcome/Goals Maintain/ Improve Skin Intergrity Surgical Incisions Healing Progression Toward Outcome/Goals Progressing Medicine Note: Length of Stay: 7 days Anticipated Discharge Destination: Home Tentative Discharge Date: December 20, 2017 Discharged to: Home
[2017-12-13] MEDS: Warfarin TAB(*) 3 MG PO SCH (16:57)
[2017-12-13] MEDS: Atorvastatin* 20 MG TAB PO SCH (16:57)
[2017-12-13] MEDS: Carisoprodol TAB* 350 MG PO PRN (20:37)
[2017-12-13] MEDS ORDERED: Baclofen TAB* 10 MG PO ONE (23:00)
[2017-12-14] MEDS: oxyCODONE/Acetamin 5/325 MG* TAB PO PRN ×3 (02:20→18:08)
[2017-12-14 06:54] LABS: ABS Basophils 0 10^3/ul (0-0.2); ABS Eosinophils 0.2 10^3/ul (0-0.6); ABS Lymphocytes 1.1 10^3/ul (1.0-4.8); ABS Monocytes 0.7 10^3/ul (0-0.8); ABS Neutrophils 3.3 10^3/ul (1.5-7.7); ABS Nucleated RBC 0 10^3/ul; Eosinophil % 3.9 % (0-6); Hematocrit 31 % (35-47); Hemoglobin 10.9 g/dl (12.0-16.0); Lymphocyte % 21.5 % (25-47); Mean Corpuscular HGB Conc 35 g/dl (31-36); Mean Corpuscular Hemoglobin 33 pg (27-31); Mean Corpuscular Volume 94 fL (80-97); Mean Platelet Volume 7.1 um3 (7.4-10.4); Nucleated Red Blood Cells % 0; Platelet Count 279 10^3/ul (150-450); Red Blood Count 3.33 10^6/ul (4.00-5.40); Red Cell Distribution Width 14 % (10.5-15); White Blood Count 5.3 10^3/ul (3.5-10.8)
[2017-12-14 07:02] LABS: INR 1.45 (0.77-1.02)
[2017-12-14] MEDS: PTO:Albuterol/Ipratropium RESP(NF) MDI (Combivent Respimat) INH SCH ×4 (07:32→20:25)
[2017-12-14] MEDS: Fluticasone-Salmeterol 500-50* DISKUS INH SCH ×2 (07:32→20:25)
[2017-12-14] MEDS: Venlafaxine EXT RELEASE CAP* 75 MG PO SCH (07:36)
[2017-12-14] MEDS: Pregabalin CAP(*) 100 MG PO SCH ×3 (07:36→21:04)
[2017-12-14] MEDS: Docusate CAP* 100 MG PO SCH ×2 (07:41→21:04)
[2017-12-14] MEDS: GLATIRAMER 40 MG/ML SUBCUT SCH ×2 (10:49→18:07)
[2017-12-14] MEDS: Warfarin TAB(*) 3 MG PO SCH (17:37)
[2017-12-14] MEDS: Atorvastatin* 20 MG TAB PO SCH (17:37)
--- NOTE | 2017-12-14 20:11 | PN ---
Progress Note Date of Service: 12/14/17 Note: HUMBERTO FELDMAN was visited. Therapy notes read and reviewed. Last night she had spasms in her left leg unrelieved by Soma, baclofen relieved them. Will order PRN baclofen. Weaned off O2 Current Medications: Active Medications Generic Name Dose Route Start Last Admin Trade Name Freq PRN Reason Stop Dose Admin Acetaminophen 650 mg 12/11/17 13:15 12/12/17 17:15 Tylenol Tab* PO 650 mg Q6H PRN Administration FEVER/PAIN Albuterol 2 puff 12/11/17 14:12 Ventolin Hfa Inhaler* INH Q4H PRN SOB/WHEEZING Albuterol/Ipratropium 2 puff 12/11/17 15:00 12/14/17 13:33 Combivent Respimat(Nf) INH 2 puff RT.QID BRYANNA Administration Protocol Atorvastatin Calcium 20 mg 12/11/17 17:00 12/14/17 17:37 Lipitor* PO 20 mg 1700 BRYANNA Administration Baclofen 5 mg 12/14/17 20:07 Lioresal Tab* PO BID PRN SPASMS Carisoprodol 350 mg 12/12/17 14:28 12/13/17 20:37 Soma Tab* PO 350 mg Q8H PRN Administration SPASMS Docusate Sodium 100 mg 12/11/17 21:00 12/14/17 07:41 Colace Cap* PO Not Given BID BRYANNA Glatiramer Acetate 40 mg 12/12/17 09:00 12/14/17 18:07 Copaxone(Nf) SUBCUT 40 mg MOWEFR BRYANNA Administration Magnesium Hydroxide 30 ml 12/11/17 13:15 Milk Of Magnesia Liq* PO Q6H PRN CONSTIPATION Oxycodone/Acetaminophen 2 tab 12/11/17 13:21 Percocet 5/325 Tab* PO Q4H PRN PAIN - SEVERE Oxycodone/Acetaminophen 1 tab 12/11/17 13:23 12/14/17 18:08 Percocet 5/325 Tab* PO 1 tab Q4H PRN Administration PAIN - MODERATE TO SEVERE Polyethylene Glycol/Electrolytes 17 gm 12/11/17 15:20 12/11/17 17:24 Miralax* PO 17 gm DAILY PRN Administration CONSTIPATION Pregabalin 100 mg 12/11/17 14:00 12/14/17 13:53 Lyrica Cap(*) PO 100 mg TID BRYANNA Administration Fluticasone/Salmeterol 1 puff 12/11/17 21:00 12/14/17 07:32 Advair Diskus 500-50* INH 1 puff BID BRYANNA Administration Senna 2 tab 12/11/17 13:15 Senokot Tab* PO BEDTIME PRN CONSTIPATION Venlafaxine HCl 150 mg 12/12/17 09:00 12/14/17 07:36 Effexor Xr Cap* PO 150 mg DAILY BRYANNA Administration Warfarin Sodium 3 mg 12/13/17 17:00 12/14/17 17:37 Coumadin Tab(*) PO 3 mg DAILY@1700 BRYANNA Administration Protocol Vital Signs: Vital Signs Temp Pulse Resp BP Pulse Ox 98.5 F 81 16 130/68 94 12/14/17 16:23 12/14/17 16:23 12/14/17 18:08 12/14/17 16:23 12/14/17 16:23 Lab Results: Laboratory Results - last 24 hr 12/14/17 12/14/17 06:31 06:31 WBC 5.3 RBC 3.33 L Hgb 10.9 L Hct 31 L MCV 94 MCH 33 H MCHC 35 RDW 14 Plt Count 279 MPV 7.1 L Neut % (Auto) 61.5 Lymph % (Auto) 21.5 L Hyde % (Auto) 12.3 H Eos % (Auto) 3.9 Baso % (Auto) 0.8 Absolute Neuts (auto) 3.3 Absolute Lymphs (auto) 1.1 Absolute Monos (auto) 0.7 Absolute Eos (auto) 0.2 Absolute Basos (auto) 0 Absolute Nucleated RBC 0 Nucleated RBC % 0 INR (Anticoag Therapy) 1.45 H Exam: HEENT: NC/AT LUNGS: clear HEART: reg rhythm ABDOMEN: Soft EXTREMITIES: Left leg wound C/D/I NEUROLOGIC: Alert and oriented. Motor exam non focal Assessment/Plan: 1. Left MEREDITH: PT/OT. WBAT. Follow up with Dr. Guzman 2. Multiple Sclerosis: Copaxone 3. COPD: Combivent/Advair. 4. History of CRPS: Lyrica 5. Depression: Effexor 6. DVT Prophylaxis: Coumadin, continue 3 mg, check INR in am 7. Advanced Directives: full code 8. Spasms: Soma. Try to avoid Soma during day as it is sedating. Baclofen 12/14/17 20:12
[2017-12-14] MEDS: Baclofen TAB* 10 MG PO PRN (21:04)
[2017-12-15] MEDS: oxyCODONE/Acetamin 5/325 MG* TAB PO PRN ×2 (05:17→13:10)
[2017-12-15 05:33] LABS: INR 1.29 (0.77-1.02)
[2017-12-15] MEDS: PTO:Albuterol/Ipratropium RESP(NF) MDI (Combivent Respimat) INH SCH ×4 (08:14→19:21)
[2017-12-15] MEDS: Fluticasone-Salmeterol 500-50* DISKUS INH SCH ×2 (08:14→19:21)
[2017-12-15] MEDS: Docusate CAP* 100 MG PO SCH ×2 (09:13→20:35)
[2017-12-15] MEDS: Venlafaxine EXT RELEASE CAP* 75 MG PO SCH (09:13)
[2017-12-15] MEDS: Pregabalin CAP(*) 100 MG PO SCH ×3 (09:13→20:31)
[2017-12-15] MEDS: Baclofen TAB* 10 MG PO PRN ×2 (09:16→20:32)
[2017-12-15] MEDS: Atorvastatin* 20 MG TAB PO SCH (16:59)
[2017-12-15] MEDS ORDERED: Warfarin TAB(*) 4 MG PO SCH (17:00)
--- NOTE | 2017-12-15 18:04 | PN ---
Progress Note Date of Service: 12/15/17 Note: HUMBERTO FELDMAN was visited. Therapy notes read and reviewed. She has been doing well. Baclofen seems to be helping with spasms. Off oxygen. INR still dropping, will increase Coumadin to 4 Current Medications: Active Medications Generic Name Dose Route Start Last Admin Trade Name Freq PRN Reason Stop Dose Admin Acetaminophen 650 mg 12/11/17 13:15 12/12/17 17:15 Tylenol Tab* PO 650 mg Q6H PRN Administration FEVER/PAIN Albuterol 2 puff 12/11/17 14:12 Ventolin Hfa Inhaler* INH Q4H PRN SOB/WHEEZING Albuterol/Ipratropium 2 puff 12/11/17 15:00 12/15/17 16:05 Combivent Respimat(Nf) INH 2 puff RT.QID BRYANNA Administration Protocol Atorvastatin Calcium 20 mg 12/11/17 17:00 12/15/17 16:59 Lipitor* PO 20 mg 1700 BRYANNA Administration Baclofen 5 mg 12/14/17 20:07 12/15/17 09:16 Lioresal Tab* PO 5 mg BID PRN Administration SPASMS Carisoprodol 350 mg 12/12/17 14:28 12/13/17 20:37 Soma Tab* PO 350 mg Q8H PRN Administration SPASMS Docusate Sodium 100 mg 12/11/17 21:00 12/15/17 09:13 Colace Cap* PO Not Given BID BRYANNA Glatiramer Acetate 40 mg 12/12/17 09:00 12/14/17 18:07 Copaxone(Nf) SUBCUT 40 mg MOWEFR BRYANNA Administration Magnesium Hydroxide 30 ml 12/11/17 13:15 Milk Of Magnesia Liq* PO Q6H PRN CONSTIPATION Oxycodone/Acetaminophen 2 tab 12/11/17 13:21 12/15/17 13:10 Percocet 5/325 Tab* PO 2 tab Q4H PRN Administration PAIN - SEVERE Oxycodone/Acetaminophen 1 tab 12/11/17 13:23 12/15/17 05:17 Percocet 5/325 Tab* PO 1 tab Q4H PRN Administration PAIN - MODERATE TO SEVERE Polyethylene Glycol/Electrolytes 17 gm 12/11/17 15:20 12/11/17 17:24 Miralax* PO 17 gm DAILY PRN Administration CONSTIPATION Pregabalin 100 mg 12/11/17 14:00 12/15/17 14:38 Lyrica Cap(*) PO 100 mg TID BRYANNA Administration Fluticasone/Salmeterol 1 puff 12/11/17 21:00 12/15/17 08:14 Advair Diskus 500-50* INH 1 puff BID BRYANNA Administration Senna 2 tab 12/11/17 13:15 Senokot Tab* PO BEDTIME PRN CONSTIPATION Venlafaxine HCl 150 mg 12/12/17 09:00 12/15/17 09:13 Effexor Xr Cap* PO 150 mg DAILY BRYANNA Administration Warfarin Sodium 4 mg 12/15/17 17:00 12/15/17 16:59 Coumadin Tab(*) PO 4 mg DAILY@1700 BRYANNA Administration Protocol Vital Signs: Vital Signs Temp Pulse Resp BP Pulse Ox 97.5 F 87 18 117/70 93 12/15/17 16:21 12/15/17 16:21 12/15/17 17:19 12/15/17 16:21 12/15/17 17:20 Lab Results: Laboratory Results - last 24 hr 12/15/17 05:06 INR (Anticoag Therapy) 1.29 H Exam: HEENT: NC/AT LUNGS: clear HEART: reg rhythm ABDOMEN: Soft EXTREMITIES: Left leg wound C/D/I NEUROLOGIC: Alert and oriented. Motor exam non focal Assessment/Plan: 1. Left MEREDITH: PT/OT. WBAT. Follow up with Dr. Guzman 2. Multiple Sclerosis: Copaxone 3. COPD: Combivent/Advair. 4. History of CRPS: Lyrica 5. Depression: Effexor 6. DVT Prophylaxis: Coumadin, increase to 4 mg, check INR in am 7. Advanced Directives: full code 8. Spasms: Soma. Try to avoid Soma during day as it is sedating. Baclofen 12/15/17 18:05
[2017-12-16] MEDS: oxyCODONE/Acetamin 5/325 MG* TAB PO PRN ×2 (05:25→16:06)
[2017-12-16] MEDS: Baclofen TAB* 10 MG PO PRN ×2 (05:37→20:32)
[2017-12-16 07:22] LABS: INR 1.09 (0.77-1.02)
[2017-12-16] MEDS: PTO:Albuterol/Ipratropium RESP(NF) MDI (Combivent Respimat) INH SCH ×4 (07:43→19:36)
[2017-12-16] MEDS: Fluticasone-Salmeterol 500-50* DISKUS INH SCH ×2 (07:44→19:38)
[2017-12-16] MEDS: Venlafaxine EXT RELEASE CAP* 75 MG PO SCH (08:43)
[2017-12-16] MEDS: Docusate CAP* 100 MG PO SCH ×2 (08:43→20:27)
[2017-12-16] MEDS: Pregabalin CAP(*) 100 MG PO SCH ×3 (08:43→20:27)
--- NOTE | 2017-12-16 12:11 | PN ---
Progress Note Date of Service: 12/16/17 Note: HUMBERTO FELDMAN was visited. Nursing and therapy notes read and reviewed. No chest pain, shortness of breath or abdominal pain. Had some sharp pain in her left lateral lower leg this morning which resolved with baclofen. She thinks baclofen helps with spasms. Current Medications: Active Medications Generic Name Dose Route Start Last Admin Trade Name Freq PRN Reason Stop Dose Admin Acetaminophen 650 mg 12/11/17 13:15 12/12/17 17:15 Tylenol Tab* PO 650 mg Q6H PRN Administration FEVER/PAIN Albuterol 2 puff 12/11/17 14:12 Ventolin Hfa Inhaler* INH Q4H PRN SOB/WHEEZING Albuterol/Ipratropium 2 puff 12/11/17 15:00 12/16/17 07:43 Combivent Respimat(Nf) INH 2 puff RT.QID BRYANNA Administration Protocol Atorvastatin Calcium 20 mg 12/11/17 17:00 12/15/17 16:59 Lipitor* PO 20 mg 1700 [facility] Administration Baclofen 5 mg 12/14/17 20:07 12/16/17 05:37 Lioresal Tab* PO 5 mg BID PRN Administration SPASMS Carisoprodol 350 mg 12/12/17 14:28 12/13/17 20:37 Soma Tab* PO 350 mg Q8H PRN Administration SPASMS Docusate Sodium 100 mg 12/11/17 21:00 12/16/17 08:43 Colace Cap* PO Not Given BID [facility] Glatiramer Acetate 40 mg 12/16/17 20:24 Copaxone SUBCUT MOWEFR [facility] Magnesium Hydroxide 30 ml 12/11/17 13:15 Milk Of Magnesia Liq* PO Q6H PRN CONSTIPATION Oxycodone/Acetaminophen 2 tab 12/11/17 13:21 12/15/17 13:10 Percocet 5/325 Tab* PO 2 tab Q4H PRN Administration PAIN - SEVERE Oxycodone/Acetaminophen 1 tab 12/11/17 13:23 12/16/17 05:25 Percocet 5/325 Tab* PO 1 tab Q4H PRN Administration PAIN - MODERATE TO SEVERE Polyethylene Glycol/Electrolytes 17 gm 12/11/17 15:20 12/11/17 17:24 Miralax* PO 17 gm DAILY PRN Administration CONSTIPATION Pregabalin 100 mg 12/11/17 14:00 12/16/17 08:43 Lyrica Cap(*) PO 100 mg TID BRYANNA Administration Fluticasone/Salmeterol 1 puff 12/11/17 21:00 12/16/17 07:44 Advair Diskus 500-50* INH 1 puff BID BRYANNA Administration Senna 2 tab 12/11/17 13:15 Senokot Tab* PO BEDTIME PRN CONSTIPATION Venlafaxine HCl 150 mg 12/12/17 09:00 12/16/17 08:43 Effexor Xr Cap* PO 150 mg DAILY BRYANNA Administration Warfarin Sodium 5 mg 12/16/17 17:00 Coumadin Tab(*) PO DAILY@1700 [facility] Protocol Vital Signs: Vital Signs Temp Pulse Resp BP Pulse Ox 98.4 F 90 16 146/65 92 12/16/17 05:07 12/16/17 07:44 12/16/17 08:44 12/16/17 05:07 12/16/17 07:44 Lab Results: Laboratory Results - last 24 hr 12/16/17 06:13 INR (Anticoag Therapy) 1.09 H Exam: GEN: no acute distress. alert and appropriate. LUNGS: clear to auscultation bilaterally. HEART: regular rate and rhythm ABDOMEN: Soft, non-tender, non-distended, + bowel sounds EXTREMITIES: No edema. No tenderness to palpation. Assessment/Plan: 1. Left MERDEITH: PT/OT. WBAT. Follow up with Dr. Guzman 2. Multiple Sclerosis: Copaxone 3. COPD: Combivent/Advair. 4. History of CRPS: Lyrica 5. Depression: Effexor 6. DVT Prophylaxis: Coumadin increase to 5 mg. Give dose of lovenox today. check INR in am 7. Advanced Directives: full code 8. Spasms: Soma. Try to avoid Soma during day as it is sedating. Continue baclofen 12/16/17 12:10
[2017-12-16] MEDS ORDERED: Enoxaparin(*) 30 MG/0.3 ML SYR SUBCUT ONE (12:12)
[2017-12-16] MEDS: Atorvastatin* 20 MG TAB PO SCH (16:45)
[2017-12-16] MEDS: Warfarin TAB(*) 5 MG PO SCH (16:45)
[2017-12-16] MEDS: GLATIRAMER 40 MG/ML SUBCUT SCH (21:46)
[2017-12-17] MEDS: oxyCODONE/Acetamin 5/325 MG* TAB PO PRN ×3 (02:48→21:44)
[2017-12-17] MEDS: Carisoprodol TAB* 350 MG PO PRN (03:00)
[2017-12-17 06:18] LABS: INR 1.24 (0.77-1.02)
[2017-12-17] MEDS: Fluticasone-Salmeterol 500-50* DISKUS INH SCH ×2 (08:05→20:11)
[2017-12-17] MEDS: PTO:Albuterol/Ipratropium RESP(NF) MDI (Combivent Respimat) INH SCH ×4 (08:05→19:28)
[2017-12-17] MEDS: Venlafaxine EXT RELEASE CAP* 75 MG PO SCH (08:25)
[2017-12-17] MEDS: Docusate CAP* 100 MG PO SCH ×2 (08:25→21:43)
[2017-12-17] MEDS: Pregabalin CAP(*) 100 MG PO SCH ×3 (08:25→21:43)
--- NOTE | 2017-12-17 12:51 | PN ---
Progress Note Date of Service: 12/17/17 Note: HUMBERTO FELDMAN was visited. Nursing and therapy notes read and reviewed. No chest pain, shortness of breath or abdominal pain. Since being on PMRU her tongue has felt sensitive when eating. This is new. No other changes to sensation or strength. She has also been off provigil since surgery and wonders if maybe she does not need it. She does not feel fatigued. She is also however not using soma as much. Current Medications: Active Medications Generic Name Dose Route Start Last Admin Trade Name Freq PRN Reason Stop Dose Admin Acetaminophen 650 mg 12/11/17 13:15 12/12/17 17:15 Tylenol Tab* PO 650 mg Q6H PRN Administration FEVER/PAIN Albuterol 2 puff 12/11/17 14:12 Ventolin Hfa Inhaler* INH Q4H PRN SOB/WHEEZING Albuterol/Ipratropium 2 puff 12/11/17 15:00 12/17/17 12:11 Combivent Respimat(Nf) INH 2 puff RT.QID BRYANNA Administration Protocol Atorvastatin Calcium 20 mg 12/11/17 17:00 12/16/17 16:45 Lipitor* PO 20 mg 1700 BRYANNA Administration Baclofen 5 mg 12/14/17 20:07 12/16/17 20:32 Lioresal Tab* PO 5 mg BID PRN Administration SPASMS Carisoprodol 350 mg 12/12/17 14:28 12/17/17 03:00 Soma Tab* PO 350 mg Q8H PRN Administration SPASMS Docusate Sodium 100 mg 12/11/17 21:00 12/17/17 08:25 Colace Cap* PO 100 mg BID BRYANNA Administration Enoxaparin Sodium 30 mg 12/17/17 13:00 Lovenox(*) SUBCUT 12/17/17 13:01 ONCE ONE Glatiramer Acetate 40 mg 12/16/17 20:24 12/16/17 21:46 Copaxone SUBCUT 40 mg MOWEFR BRYANNA Administration Lidocaine 15 ml 12/17/17 12:00 Xylocaine 2% Viscous* SWISH SPIT AC BRYANNA Magnesium Hydroxide 30 ml 12/11/17 13:15 Milk Of Magnesia Liq* PO Q6H PRN CONSTIPATION Oxycodone/Acetaminophen 2 tab 12/11/17 13:21 12/17/17 02:48 Percocet 5/325 Tab* PO 2 tab Q4H PRN Administration PAIN - SEVERE Oxycodone/Acetaminophen 1 tab 12/11/17 13:23 12/16/17 05:25 Percocet 5/325 Tab* PO 1 tab Q4H PRN Administration PAIN - MODERATE TO SEVERE Polyethylene Glycol/Electrolytes 17 gm 12/11/17 15:20 12/11/17 17:24 Miralax* PO 17 gm DAILY PRN Administration CONSTIPATION Pregabalin 100 mg 12/11/17 14:00 12/17/17 08:25 Lyrica Cap(*) PO 100 mg TID BRYANNA Administration Fluticasone/Salmeterol 1 puff 12/11/17 21:00 12/17/17 08:05 Advair Diskus 500-50* INH 1 puff BID BRYANNA Administration Senna 2 tab 12/11/17 13:15 Senokot Tab* PO BEDTIME PRN CONSTIPATION Venlafaxine HCl 150 mg 12/12/17 09:00 12/17/17 08:25 Effexor Xr Cap* PO 150 mg DAILY BRYANNA Administration Warfarin Sodium 5 mg 12/16/17 17:00 12/16/17 16:45 Coumadin Tab(*) PO 5 mg DAILY@1700 BRYANNA Administration Protocol Vital Signs: Vital Signs Temp Pulse Resp BP Pulse Ox 97.3 F 83 18 122/63 93 12/17/17 06:14 12/17/17 08:25 12/17/17 10:31 12/17/17 06:14 12/17/17 08:25 Lab Results: Laboratory Results - last 24 hr 12/17/17 05:56 INR (Anticoag Therapy) 1.24 H Exam: GEN: no acute distress. alert and appropriate. O/P: clear without any lesions or thrush LUNGS: clear to auscultation bilaterally. HEART: regular rate and rhythm ABDOMEN: Soft, non-tender, non-distended, + bowel sounds EXTREMITIES: No edema. No tenderness to palpation. Left hip incision glued c/d/i Assessment/Plan: 1. Left MEREDITH: PT/OT. WBAT. Dr. Guzman visited this morning. f/u with her after d/ c. 2. Multiple Sclerosis: Copaxone. Has been ok off provigil. She would like to stay off for now. If gets fatigued consider restart. 3. COPD: Combivent/Advair. 4. History of CRPS: Lyrica 5. Depression: Effexor 6. DVT Prophylaxis: Coumadin continue 5 mg. Give dose of lovenox today. check INR in am 7. Advanced Directives: full code 8. Spasms: Soma. Try to avoid Soma during day as it is sedating. Continue baclofen 9. Tongue pain: No visible lesions. Try viscous lidocaine swish and spit before meals symptomatically. 12/17/17 12:49
[2017-12-17] MEDS ORDERED: Enoxaparin(*) 30 MG/0.3 ML SYR SUBCUT ONE (13:00)
[2017-12-17] MEDS: Lidocaine 2% VISCOUS* 15 ML UDC SWISH SPIT SCH ×2 (13:48→19:07)
[2017-12-17] MEDS: Atorvastatin* 20 MG TAB PO SCH (17:05)
[2017-12-17] MEDS: Warfarin TAB(*) 5 MG PO SCH (17:05)
[2017-12-18] MEDS: oxyCODONE/Acetamin 5/325 MG* TAB PO PRN ×4 (04:14→22:38)
[2017-12-18 05:20] LABS: INR 1.27 (0.77-1.02)
[2017-12-18] MEDS: PTO:Albuterol/Ipratropium RESP(NF) MDI (Combivent Respimat) INH SCH ×4 (06:49→18:59)
[2017-12-18] MEDS: Polyethylene Glycol 3350* 17 GM PACKET PO PRN (08:02)
[2017-12-18] MEDS: Venlafaxine EXT RELEASE CAP* 75 MG PO SCH (08:03)
[2017-12-18] MEDS: Pregabalin CAP(*) 100 MG PO SCH ×3 (08:03→20:13)
[2017-12-18] MEDS: Docusate CAP* 100 MG PO SCH ×2 (08:03→20:13)
[2017-12-18] MEDS: Lidocaine 2% VISCOUS* 15 ML UDC SWISH SPIT SCH ×3 (08:04→16:32)
[2017-12-18] MEDS: Fluticasone-Salmeterol 500-50* DISKUS INH SCH ×2 (08:04→20:13)
[2017-12-18] MEDS: Baclofen TAB* 10 MG PO PRN (08:05)
--- NOTE | 2017-12-18 11:15 | PN ---
Progress Note Date of Service: 12/18/17 Note: HUMBERTO FELDMAN was visited. Nursing notes read and reviewed. Pt reports viscous lidocaine before meals helps her tongue sensitivity. No chest pain, shortness of breath or abdominal pain. Current Medications: Active Medications Generic Name Dose Route Start Last Admin Trade Name Freq PRN Reason Stop Dose Admin Acetaminophen 650 mg 12/11/17 13:15 12/12/17 17:15 Tylenol Tab* PO 650 mg Q6H PRN Administration FEVER/PAIN Albuterol 2 puff 12/11/17 14:12 Ventolin Hfa Inhaler* INH Q4H PRN SOB/WHEEZING Albuterol/Ipratropium 2 puff 12/11/17 15:00 12/18/17 06:49 Combivent Respimat(Nf) INH 2 puff RT.QID BRYANNA Administration Protocol Atorvastatin Calcium 20 mg 12/11/17 17:00 12/17/17 17:05 Lipitor* PO 20 mg 1700 BRYANNA Administration Baclofen 5 mg 12/14/17 20:07 12/18/17 08:05 Lioresal Tab* PO 5 mg BID PRN Administration SPASMS Carisoprodol 350 mg 12/12/17 14:28 12/17/17 03:00 Soma Tab* PO 350 mg Q8H PRN Administration SPASMS Docusate Sodium 100 mg 12/11/17 21:00 12/18/17 08:03 Colace Cap* PO 100 mg BID BRYANNA Administration Enoxaparin Sodium 30 mg 12/18/17 13:00 Lovenox(*) SUBCUT 12/18/17 13:01 ONCE ONE Glatiramer Acetate 40 mg 12/16/17 20:24 12/16/17 21:46 Copaxone SUBCUT 40 mg MOWEFR BRYANNA Administration Lidocaine 15 ml 12/17/17 12:00 12/18/17 08:04 Xylocaine 2% Viscous* SWISH SPIT Not Given AC BRYANNA Magnesium Hydroxide 30 ml 12/11/17 13:15 Milk Of Magnesia Liq* PO Q6H PRN CONSTIPATION Oxycodone/Acetaminophen 2 tab 12/11/17 13:21 12/17/17 13:02 Percocet 5/325 Tab* PO 2 tab Q4H PRN Administration PAIN - SEVERE Oxycodone/Acetaminophen 1 tab 12/11/17 13:23 12/18/17 04:14 Percocet 5/325 Tab* PO 1 tab Q4H PRN Administration PAIN - MODERATE TO SEVERE Polyethylene Glycol/Electrolytes 17 gm 12/11/17 15:20 12/18/17 08:02 Miralax* PO 17 gm DAILY PRN Administration CONSTIPATION Pregabalin 100 mg 12/11/17 14:00 12/18/17 08:03 Lyrica Cap(*) PO 100 mg TID BRYANNA Administration Fluticasone/Salmeterol 1 puff 12/11/17 21:00 12/18/17 08:04 Advair Diskus 500-50* INH 1 puff BID BRYANNA Administration Senna 2 tab 12/11/17 13:15 Senokot Tab* PO BEDTIME PRN CONSTIPATION Venlafaxine HCl 150 mg 12/12/17 09:00 12/18/17 08:03 Effexor Xr Cap* PO 150 mg DAILY BRYANNA Administration Warfarin Sodium 5 mg 12/16/17 17:00 12/17/17 17:05 Coumadin Tab(*) PO 5 mg DAILY@1700 BRYANNA Administration Protocol Vital Signs: Vital Signs Temp Pulse Resp BP Pulse Ox 97.8 F 71 18 123/59 94 12/18/17 05:16 12/18/17 05:16 12/18/17 08:03 12/18/17 05:16 12/18/17 08:00 Lab Results: Laboratory Results - last 24 hr 12/18/17 05:02 INR (Anticoag Therapy) 1.27 H Exam: GEN: no acute distress. alert and appropriate. LUNGS: clear to auscultation bilaterally. HEART: regular rate and rhythm ABDOMEN: Soft, non-tender, non-distended, + bowel sounds EXTREMITIES: No edema. No tenderness to palpation. Left hip incision glued c/d/i Assessment/Plan: 1. Left MEREDITH: PT/OT. WBAT. Dr. Guzman visited 12/17. f/u with her after d/c. 2. Multiple Sclerosis: Copaxone. Has been ok off provigil. She would like to stay off for now. If gets fatigued consider restart. 3. COPD: Combivent/Advair. 4. History of CRPS: Lyrica 5. Depression: Effexor 6. DVT Prophylaxis: Coumadin continue 5 mg since INR on rise. Give dose of lovenox today. check INR in am 7. Advanced Directives: full code 8. Spasms: Continue Baclofen. Try to avoid Soma during day as it is sedating. 9. Tongue pain: Viscous lidocaine swish and spit before meals symptomatically. 12/18/17 11:14
[2017-12-18] MEDS ORDERED: Enoxaparin(*) 30 MG/0.3 ML SYR SUBCUT ONE (13:00)
[2017-12-18] MEDS: Atorvastatin* 20 MG TAB PO SCH (16:31)
[2017-12-18] MEDS: Warfarin TAB(*) 5 MG PO SCH (16:32)
[2017-12-19 05:13] LABS: Hematocrit 30 % (35-47); Hemoglobin 10.3 g/dl (12.0-16.0); Mean Corpuscular HGB Conc 34 g/dl (31-36); Mean Corpuscular Hemoglobin 32 pg (27-31); Mean Corpuscular Volume 95 fL (80-97); Mean Platelet Volume 6.5 um3 (7.4-10.4); Platelet Count 427 10^3/ul (150-450); Red Blood Count 3.21 10^6/ul (4.00-5.40); Red Cell Distribution Width 15 % (10.5-15); White Blood Count 6.7 10^3/ul (3.5-10.8)
[2017-12-19 05:26] LABS: INR 1.4 (0.77-1.02)
[2017-12-19 05:27] LABS: ABS Basophils 0.1 10^3/ul (0-0.2); ABS Eosinophils 0.2 10^3/ul (0-0.6); ABS Lymphocytes 1.6 10^3/ul (1.0-4.8); ABS Monocytes 0.6 10^3/ul (0-0.8); ABS Neutrophils 4.1 10^3/ul (1.5-7.7); ABS Nucleated RBC 0 10^3/ul
[2017-12-19 05:31] LABS: EGFR Non-African American 124.5 (>60)
[2017-12-19] MEDS: oxyCODONE/Acetamin 5/325 MG* TAB PO PRN ×3 (05:53→19:43)
[2017-12-19 06:04] LABS: Eosinophil % 3.7 % (0-6); Lymphocyte % 23.7 % (25-47); Nucleated Red Blood Cells % 0.1
[2017-12-19] MEDS: PTO:Albuterol/Ipratropium RESP(NF) MDI (Combivent Respimat) INH SCH ×5 (07:56→21:52)
[2017-12-19] MEDS: Fluticasone-Salmeterol 500-50* DISKUS INH SCH ×2 (07:57→20:37)
[2017-12-19] MEDS: Pregabalin CAP(*) 100 MG PO SCH ×3 (08:16→20:18)
[2017-12-19] MEDS: Docusate CAP* 100 MG PO SCH ×2 (08:16→20:17)
[2017-12-19] MEDS: Venlafaxine EXT RELEASE CAP* 75 MG PO SCH (08:19)
[2017-12-19] MEDS ORDERED: Warfarin TAB(*) 6 MG PO SCH (17:00)
--- NOTE | 2017-12-19 17:14 | PN ---
Progress Note Date of Service: 12/19/17 Note: HUMBERTO FELDMAN was visited. Therapy notes read and reviewed. For discharge tomorrow. She has no complaints. Occasional spasm in legs. INR rising Current Medications: Active Medications Generic Name Dose Route Start Last Admin Trade Name Freq PRN Reason Stop Dose Admin Acetaminophen 650 mg 12/11/17 13:15 12/12/17 17:15 Tylenol Tab* PO 650 mg Q6H PRN Administration FEVER/PAIN Albuterol 2 puff 12/11/17 14:12 Ventolin Hfa Inhaler* INH Q4H PRN SOB/WHEEZING Albuterol/Ipratropium 2 puff 12/11/17 15:00 12/19/17 14:42 Combivent Respimat(Nf) INH 2 puff RT.QID BRYANNA Administration Protocol Atorvastatin Calcium 20 mg 12/11/17 17:00 12/18/17 16:31 Lipitor* PO 20 mg 1700 BRYANNA Administration Baclofen 5 mg 12/14/17 20:07 12/18/17 08:05 Lioresal Tab* PO 5 mg BID PRN Administration SPASMS Carisoprodol 350 mg 12/12/17 14:28 12/17/17 03:00 Soma Tab* PO 350 mg Q8H PRN Administration SPASMS Docusate Sodium 100 mg 12/11/17 21:00 12/19/17 08:16 Colace Cap* PO 100 mg BID BRYANNA Administration Glatiramer Acetate 40 mg 12/16/17 20:24 12/16/17 21:46 Copaxone SUBCUT 40 mg MOWEFR BRYANNA Administration Lidocaine 15 ml 12/17/17 12:00 12/18/17 16:32 Xylocaine 2% Viscous* SWISH SPIT Not Given AC [facility] Magnesium Hydroxide 30 ml 12/11/17 13:15 Milk Of Magnesia Liq* PO Q6H PRN CONSTIPATION Oxycodone/Acetaminophen 2 tab 12/11/17 13:21 12/19/17 13:44 Percocet 5/325 Tab* PO 2 tab Q4H PRN Administration PAIN - SEVERE Oxycodone/Acetaminophen 1 tab 12/11/17 13:23 12/18/17 04:14 Percocet 5/325 Tab* PO 1 tab Q4H PRN Administration PAIN - MODERATE TO SEVERE Polyethylene Glycol/Electrolytes 17 gm 12/11/17 15:20 08/05/18 08:02 Miralax* PO 17 gm DAILY PRN Administration CONSTIPATION Pregabalin 100 mg 12/11/17 14:00 12/19/17 13:44 Lyrica Cap(*) PO 100 mg TID BRYANNA Administration Fluticasone/Salmeterol 1 puff 12/11/17 21:00 12/19/17 07:57 Advair Diskus 500-50* INH 1 puff BID BRYANNA Administration Senna 2 tab 12/11/17 13:15 Senokot Tab* PO BEDTIME PRN CONSTIPATION Venlafaxine HCl 150 mg 12/12/17 09:00 12/19/17 08:19 Effexor Xr Cap* PO 150 mg DAILY BRYANNA Administration Warfarin Sodium 6 mg 12/19/17 17:00 Coumadin Tab(*) PO DAILY@1700 [facility] Protocol Vital Signs: Vital Signs Temp Pulse Resp BP Pulse Ox 97.6 F 90 14 120/43 92 12/19/17 05:54 12/19/17 14:57 12/19/17 14:57 12/19/17 05:54 12/19/17 14:57 Lab Results: Laboratory Results - last 24 hr 12/19/17 12/19/17 12/19/17 05:03 05:03 05:03 WBC 6.7 RBC 3.21 L Hgb 10.3 L Hct 30 L MCV 95 MCH 32 H MCHC 34 RDW 15 Plt Count 427 MPV 6.5 L Neut % (Auto) 62.6 Lymph % (Auto) 23.7 L [place] % (Auto) 9.0 H Eos % (Auto) 3.7 Baso % (Auto) 1.0 Absolute Neuts (auto) 4.1 Absolute Lymphs (auto) 1.6 Absolute Monos (auto) 0.6 Absolute Eos (auto) 0.2 Absolute Basos (auto) 0.1 Absolute Nucleated RBC 0 Nucleated RBC % 0.1 INR (Anticoag Therapy) 1.40 H Sodium 137 Potassium 4.4 Chloride 103 Carbon Dioxide 31 Anion Gap 3 BUN 16 Creatinine 0.49 L Est GFR ( Amer) 150.6 Est GFR (Non-Af Amer) 124.5 BUN/Creatinine Ratio 32.7 H Glucose 91 Calcium 8.9 Total Bilirubin 0.40 AST 23 ALT 36 Alkaline Phosphatase 97 Total Protein 5.6 L Albumin 3.1 L Globulin 2.5 Albumin/Globulin Ratio 1.2 Exam: HEENT: NC/AT LUNGS: clear HEART: reg rhythm ABDOMEN: Soft EXTREMITIES: Left leg wound C/D/I NEUROLOGIC: Alert and oriented. Motor exam non focal Assessment/Plan: 1. Left MEREDITH: PT/OT. WBAT. Dr. Guzman visited 12/17. f/u with her after d/c. 2. Multiple Sclerosis: Copaxone. 3. COPD: Combivent/Advair. 4. History of CRPS: Lyrica 5. Depression: Effexor 6. DVT Prophylaxis: Coumadin increase to 6 mg. check INR in am 7. Advanced Directives: full code 8. Spasms: Continue Baclofen. Try to avoid Soma during day as it is sedating. 9. Tongue pain: Viscous lidocaine swish and spit before meals symptomatically. 12/19/17 17:15
[2017-12-19] MEDS: Lidocaine 2% VISCOUS* 15 ML UDC SWISH SPIT SCH ×3 (17:18→22:07)
[2017-12-19] MEDS: Atorvastatin* 20 MG TAB PO SCH (17:29)
[2017-12-19] MEDS: GLATIRAMER 40 MG/ML SUBCUT SCH (20:16)
[2017-12-19] MEDS: Baclofen TAB* 10 MG PO PRN (22:18)
[2017-12-20] MEDS: Baclofen TAB* 10 MG PO PRN (04:43)
[2017-12-20 04:58] VITALS: BP 130/67
[2017-12-20 05:22] LABS: INR 1.4 (0.77-1.02)
[2017-12-20] MEDS: Venlafaxine EXT RELEASE CAP* 75 MG PO SCH (07:29)
[2017-12-20] MEDS: Docusate CAP* 100 MG PO SCH (07:29)
[2017-12-20] MEDS: Pregabalin CAP(*) 100 MG PO SCH ×2 (07:30→14:06)
[2017-12-20] MEDS: oxyCODONE/Acetamin 5/325 MG* TAB PO PRN (07:31)
[2017-12-20] MEDS: Lidocaine 2% VISCOUS* 15 ML UDC SWISH SPIT SCH ×2 (07:43→14:07)
[2017-12-20] MEDS: Fluticasone-Salmeterol 500-50* DISKUS INH SCH (08:33)
[2017-12-20] MEDS: PTO:Albuterol/Ipratropium RESP(NF) MDI (Combivent Respimat) INH SCH ×2 (08:34→12:13)
--- NOTE | 2017-12-22 13:36 | DS ---
CC: Jeni Gardner NP DISCHARGE SUMMARY: DATE OF ADMISSION: 12/11/17 DATE OF DISCHARGE: 12/20/17 DISCHARGE DIAGNOSES: 1. Left total hip replacement. 2. Multiple sclerosis. 3. Chronic obstructive pulmonary disease. 4. Complex regional pain syndrome, right foot. 5. History of deep vein thrombosis. 6. Osteoporosis. HISTORY OF ILLNESS AND HOSPITAL COURSE: For complete history of the events leading up to her rehab s rena, please see the history and physical dictated by me on 12/11/17. While on the rehab unit, the pa jduy was able to wean off her supplemental oxygen. She had some difficulty with spasms. Her Soma w as stopped and she was given baclofen, which she found to be quite helpful. She was maintained on Co umadin for DVT prophylaxis. Her INR did vary while on the rehab unit and she required several supple mental doses of Lovenox. She was otherwise medically stable. She was seen by both Physical and Occu pational Therapy and made good gains with both disciplines. With physical therapy at the time of adm ission, the patient required contact guard to do a transfer. She was able to ambulate about 100 feet with contact guard. She required min assist for stairs. With occupational therapy at the time admi ssion, the patient required supervision for upper body dressing, max assist for lower body dressing, moderate amount of assistance for bathing, minimal amount of assistance for toileting, contact guard assistance for toilet transfers. By the time of discharge, the patient was independent transfers, in dependent ambulating with a rolling walker 150 feet, independent with her activities of daily living. The patient was discharged home on 12/20/17. DISCHARGE DIET: Regular. DISCHARGE MEDICATIONS: Included: 1. Ventolin HFA inhaler 2 puffs every 4 hours as needed. 2. Combivent 2 puffs 4 times a day. 3. Lipitor 20 mg daily. 4. Baclofen 5 mg twice daily as needed. 5. Soma 350 mg every 8 hours as needed. 6. Advair Diskus 500/50 one puff twice daily. 7. Copaxone 40 mg subcutaneously Tuesday, Tuesday, and Tuesday. 8. Percocet 1 to 2 tablets every 4 hours as needed. 9. Lyrica 100 mg 3 times a day. 10. Effexor 150 mg daily. 11. Coumadin 7 mg daily or as directed. SERVICES AFTER DISCHARGE: Through the visiting nurse service. She will have home nursing, home phys ical therapy, and a home health aide. FOLLOWUP: Follow up with Dr. Akosua Guzman in 1 to 2 weeks as well as Jeni Gardner. [id number]/CPS #: [id number]
== END 2017-12-20 14:15 | disposition home or self-care (01) | DRG 560 ==
LOC: PMRU 11:01
PROVIDERS: ADMIT Physical Medicine & Rehabilitation; ATTEND Physical Medicine & Rehabilitation
PROC: F07Z5ZZ Bed Mobility Treatment (ICD-10-PCS; principal; 2017-12-11)
PROC: F07Z9ZZ Gait Training/Functional Ambulation Treatment (ICD-10-PCS; 2017-12-11)
PROC: F07Z8ZZ Transfer Training Treatment (ICD-10-PCS; 2017-12-11)
PROC: F08Z0ZZ Bathing/Showering Techniques Treatment (ICD-10-PCS; 2017-12-11)
PROC: F08Z1ZZ Dressing Techniques Treatment (ICD-10-PCS; 2017-12-11)
PROC: F08Z3ZZ Feeding/Eating Treatment (ICD-10-PCS; 2017-12-11)
DX: Z47.1 Aftercare following joint replacement surgery (principal); G90.521 Complex regional pain syndrome I of right lower limb; Z96.642 Presence of left artificial hip joint; G35 Multiple sclerosis; J44.9 Chronic obstructive pulmonary disease, unspecified; M81.0 Age-related osteoporosis without current pathological fracture; R25.2 Cramp and spasm; F32.9 Major depressive disorder, single episode, unspecified; Z86.718 Personal history of other venous thrombosis and embolism; Z79.899 Other long term (current) drug therapy; Z88.1 Allergy status to other antibiotic agents; Z88.2 Allergy status to sulfonamides
CPT/HCPCS: 36415; 80053; 85025; 85610; 94640; A9270-GY; J1650

== ENCOUNTER 2018-05-05 14:57 | Emergency (ER) | payer MEDICARE, OTHER ==
[2018-05-05 15:15] VITALS: BP 131/72
--- NOTE | 2018-05-05 15:37 | UC ---
Shortness of Breath HPI - HPI Summary HPI Summary: 72 yo female presents with increased SOB. She tells me that she has COPD and is "always" short of breath. Over the last week has noticed increased SOB with a dry cough. Last night she felt hot and cold chills and had some left rib pain with breathing and coughing. Today her pain is gone, but still feels increased SOB. She does have inhalers and an albuertol nebulizer at home that she has been using with good relief, but not for long. She tells me that her O2% sat is usually around 92-94%. She does not wear oxygen. She denies fever, chills, sinus symptoms, sore throat, abdominal pain, n/v, dizziness. - History of Current Complaint Chief Complaint: UCRespiratory Stated Complaint: TROUBLE BREATHING Time Seen by Provider: 05/05/18 15:37 Hx Obtained From: Patient Hx Last Menstrual Period: 70 y/o female Onset/Duration: Gradual Onset - Allergy/Home Medications Allergies/Adverse Reactions: Allergies Allergy/AdvReac Type Severity Reaction Status Date / Time amoxicillin [From Augmentin] Allergy Intermediate Hives Verified 05/05/18 15:15 clavulanic acid Allergy Intermediate Hives Verified 05/05/18 15:15 [From Augmentin] Sulfa (Sulfonamide Allergy Intermediate Hives Verified 05/05/18 15:15 Antibiotics) PMH/Surg Hx/FS Hx/Imm Hx - Additional Past Medical History Additional PMH: Chronic pain Respiratory History: COPD, Asthma Psychological History: Anxiety, Depression Other History Of: Anticoagulant Therapy - 81 mg aspirin, but she does not know why she is on this medication. Negative For: HIV, Hepatitis B, Hepatitis C - Surgical History Surgical History: Yes Surgery Procedure, Year, and Place: TONSILECTOMY; APPENDECTOMY; PARTIAL HYSTERECTOMY; EXPLORATORY THYROID; DISCECTOMY LOW BACK-2006; BREAST BIOPSY CLIP -Rt, LEFT HIP REPLACMENT 12/2017 - Family History Known Family History: Positive: Cardiac Disease, Diabetes Negative: Hypertension - Social History Occupation: Retired Lives: With Family Alcohol Use: None Substance Use Type: None Smoking Status (MU): Former Smoker Type: Cigarettes, eCigarettes Amount Used/How Often: 1/2-pack per day for 40 years Length of Time of Smoking/Using Tobacco: 40 years Have You Smoked in the Last Year: Yes When Did the Patient Quit Smoking/Using Tobacco: 2011 - Immunization History Most Recent Influenza Vaccination: fall 2015 Most Recent Pneumonia Vaccination: 2016 Review of Systems All Other Systems Reviewed And Are Negative: Yes Constitutional: Positive: Negative Skin: Positive: Negative Eyes: Positive: Negative ENT: Positive: Negative Respiratory: Positive: Shortness Of Breath, Cough Cardiovascular: Positive: Negative Gastrointestinal: Positive: Negative Neurovascular: Positive: Negative Neurological: Positive: Negative Psychological: Positive: Negative Physical Exam - Summary Physical Exam Summary: GENERAL: NAD. WDWN. No pain distress. SKIN: No rashes, sores, lesions, or open wounds. HEENT: Head: AT/NC Eyes: Conjunctiva clear without inflammation or discharge. Ears: Hearing grossly normal. TMs intact, no bulging, erythema, or edema. Nose: Nasal mucosa pink and moist. NTTP maxillary and frontal sinus. Throat: Posterior oropharynx without exudates, erythema, or tonsillar enlargement. Uvula midline. NECK: Supple. Nontender. No lymphadenopathy. CHEST: Mild wheezing throughout. Distant breath sounds. No r/r. No accessory muscle use. Breathing comfortably and in no distress. CV: RRR. Without m/r/g. Pulses intact. Cap refill <2seconds NEURO: Alert. PSYCH: Age appropriate behavior. Triage Information Reviewed: Yes Vital Signs: Initial Vital Signs Temp 99.4 F 05/05/18 15:10 Pulse 108 05/05/18 15:10 Resp 22 05/05/18 15:10 BP 131/72 05/05/18 15:10 Pulse Ox 93 05/05/18 15:10 Vital Signs Reviewed: Yes Re-Evaluation - Re-Evaluation First Eval Change: Improved Comment: Pt reports improvement s/p duoneb and does not feel as short of breath Shortness of Breath Dx - Course Course Of Treatment: CXR: IMPRESSION: No radiographic evidence of acute cardiopulmonary disease. Duoneb: improved. She was given dexamethasone in the clinic. EKG: Sinus tach at 115. No ST changes as read by Dr. Epps. Suspect COPD exacerbation. Pt improve s/p duoneb and dexamethasone. Her CXR was normal. Will rx for prednisone and advise her to f/u with her PCP for a recheck within 1 week. - Differential Dx/Diagnosis Provider Diagnosis: COPD exacerbation Discharge - Sign-Out/Discharge Documenting (check all that apply): Patient Departure All imaging exams completed and their final reports reviewed: Yes - Discharge Plan Condition: Stable Disposition: HOME Prescriptions: predniSONE TAB* [Deltasone 20 MG TAB*] 40 mg PO DAILY #10 tab Patient Education Materials: COPD (Chronic Obstructive Pulmonary Disease) (DC) Referrals: Jeni Gardner NP [Primary Care Provider] - Additional Instructions: If you develop a fever, shortness of breath, chest pain, new or worsening symptoms - please call your PCP or go to the ED. 1) Please start the PREDNISONE tomorrow 2) Continue using your nebulizer at home 3) If your symptoms do not improve or if they worsen - please go to the ER - Billing Disposition and Condition Condition: STABLE Disposition: Home
[2018-05-05] MEDS ORDERED: Dexamethasone TAB* 4 MG PO ONE (15:45)
[2018-05-05] MEDS ORDERED: Albuterol/Ipratropium NEB.SOL* Albuterol 2.5 MG/Ipratropium 0.5 MG 3 ML INH ONE (15:45)
== END 2018-05-05 16:45 | disposition home or self-care (01) ==
LOC: UCEAST 14:57
DX: J44.1 Chronic obstructive pulmonary disease with (acute) exacerbation (principal); Z88.0 Allergy status to penicillin; Z88.1 Allergy status to other antibiotic agents; Z88.2 Allergy status to sulfonamides; Z87.891 Personal history of nicotine dependence
CPT/HCPCS: 71046; 93005; 99213; A9270-GY; G0463; J8540

== ENCOUNTER 2018-06-25 21:23 | Emergency (ER) | payer MEDICARE, OTHER ==
--- OUTSIDE RECORDS SUMMARY | 2018-06-25 21:29 | XMS REPORT | Continuity of Care Document ---
:1945 External Reference #:[id number] Author Name Zev, Ratna Care Team Providers Name Role Phone Abida Wadsworth MD Primary Care Physician Unavailable Payers Type Date Identification Numbers Payment Provider Subscriber Effective: Policy Number: [id number] Medicare Nabila Cleary 2012 PayID: [id number] [address] [place] [address] Effective: 2016 Policy Number: [id number] [employer] Nabila Cleary Expires: 2017 PayID: [id number] [address] [address] Effective: 2012 Policy Number: [id number] [employer] Nabila Cleary Expires: 2016 PayID: [id number] [address] [address] Effective: 2009 Policy Number: [id number] [facility] Nabila Cleary Expires: 2011 Group Number: [id number] [address] PayID: [id number] [address] Policy Number: [id number] [facility] Nabila Cleary PayID: [id number] [address] [place] [address] Advance Directives Description No Information Available Problems Date Description Provider Status Onset: 12/03/2010 Chronic obstructive lung disease Maryjo Joshi M.D., [facility] Active Onset: 12/03/2010 Multiple sclerosis Maryjo Madelyn, M.D., FACP Active Onset: 03/15/2011 Tobacco user Maryjo Joshi M.D., FAC Active Onset: 07/07/2016 Localized, primary osteoarthritis of Akosua Guzman M.D. 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 Cigarette Use Pack Years - 46 Tobacco Use Start: Unknown Former Cigarette Smoker Quit 2012 Smoked End: Unknown for 40 years, 1ppd Tobacco Use Start: Unknown Vaping Not sure if it has nicotine, a couple times a day Smoking Status Reviewed: 06/19/18 Vaping Not sure if it has nicotine, a couple times a day ETOH Use Drinks Alcoholic Beverages Occasionally Tobacco Use Start: Unknown Patient is a former pt quit in 04/26 End: Unknown smoker Recreational Drug Use Denies Drug Use Smoking Vaping 3mg juice, couple times a day Exercise Type/Frequency Exercises rarely Limited by hip pain, shortness of breath. Hip surgery scheduled at the end of this month. 11/13/17 Exercise Type/Frequency Walks sporadically Allergies, Adverse Reactions, Alerts Date Description Reaction Status Severity Comments 12/01/2009 Augmentin HIVES Active Severe 12/01/2009 Sulfa hives Active Moderate Medications Medication Date Status Form Strength Qnty SIG Indications Ordering Provider Baclofen 06/19 Active Tablets 10mg 45tab / po qhs Garrison S. s prn spasms Alba Mckeon 10/31 Active Misc 1unit front s wheeled carloz Guzman dx: M.D. severe b/L hip OA Advair Diskus 10/21 Active Aerosol 500-50mcg 60uni inhale one /Dose ts dose by Varn, N.P. mouth twice daily Nebulizer 07/18 Active Device 1unit use three s times a day Varn, N.P. as needed Copaxone 03/16 Active Soln 40mg/ml 12ml inject S. Prefill syringe [place], Syringe under the M.D. skin three times [...] Varn, N.P. 8 oz water/juice as needed Venlafaxine HCL 02/22 Active Caps ER 150mg 90cap take 1 Jeni ER 24HR s capsule by Varn, N.P. mouth once daily maximum daily dose of 1 Albuterol 12/10 Active Nebulizer (2.5mg/3M 60uni 1 vial via J44.9 Jeni Sulfate L) 0.083% ts nebulizer Varn, N.P. every 12 hours as needed Ipratropium 12/10 Active Solution 0.02% 60uni use twice J44.9 Jeni [place] ts daily in Varn, N.P. nebulizer as needed Vitamin C Active Chewtabs 500mg 1 po qd Fish Oil Active Capsules 1200mg 1 po qd Lyrica Active Capsules 100mg 90cap Take 1 s Tablet By Varn, N.P. Mouth 3 Times Daily. Max/Day=3 MDD 3 Prednisone 03/22 Hx Tablets 10mg 40tab 4 tablets by R06. s mouth for 4 Varn, N.P. - days 3 04/07 tablets by mouth for 4 days 2 tablets by mouth for 4 days 1 tablet by mouth for 4 days Azithromycin 03/22 Hx Tablets 250mg 6tabs two tabs day R06. one, one Varn, N.P. - daily till 04/01 Hydrocodone-Gilberto 11/05 Hx Tablets 5-325mg 10tab 1 tab by Akosua tamino s mouth twice Thomas, - a day as M.D. 06/12 needed for pain Tramadol HCL 11/04 Hx Tablets 50mg 30tab 1 tab twice Akosua s a day as Thomas, - needed for M.D. 06/12 pain /2019 Tamiflu 08/08 Hx Capsules 75mg 10cap 1 by mouth s daily for 10 Varn, N.P. - days 08/18 Cipro 07/19 Hx Tablets 250mg 14tab one by nouth s twice daily Varn, N.P. - for 7 days 07/26 Xarelto 07/30 Hx Tablets 15mg 40tab 1 by mouth s twice daily Varn, N.P. - 12/28 Meloxicam 07/21 Hx Tablets 15mg 30tab 1 by mouth s every day Varn, N.P. - 08/04 Naproxen 07/07 Hx Tablets 500mg 30tab 1 tablet M25.552 s with food by Thomas, - mouth twice M.D. 07/21 a day /2016 Azithromycin 04/16 Hx Tablets 250mg 6tabs 2 tabs by J44.9 Hugo mouth every Sue, [employer] INSTRU[employer] - day x1 day, 04/21 1 tab by mouth every day x 4 days Venlafaxine HCL 08/11 Hx Caps ER 75mg 30cap 1 by mouth F32.9 24HR s every day Kendra, N.P. 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 - four times 06/19 daily needed Spacer 03/27 Hx 2unit Use this 496 s with your Kendra, N.P. - inhalers 11/25 Omeprazole 08/16 Hx Capsules 20mg 90cap 1 by mouth 530.81 s every day Kendra, N.P. - 11/25 Azithromycin 04/19 Hx Tablets 250mg 6tabs two tabs day 466.0 one, one Madelyn, - daily till M.D., FACP 08/16 Guaifenesin ac 04/19 Hx Syrup 100-10mg/ 100cc 1 tsp by 466.0 5ML mouth every Madelyn, - day every M.D., FACP 10/10 night needed Provigil 05/26 Hx Tablets 200mg 60tab 1 tablet Garrison S. s twice daily Mike, - mdd 2 tabs M.D. 06/19 Prednisone 05/01 Hx Tablets 10mg 40tab as directed 466.0 s Kendra, N.P. - 05/17 Azithromycin 04/27 Hx Tablets [...] tsp q 466.0 its 4 hrs prn Varn, N.P. - cough 10/04 Ergocalciferol 11/07 Hx Capsules [id number] 8caps one po once 268.9 weekly Deuce Joshi M.D., FACP 01/06 Advair Diskus 06/16 Hx Aerosol 250-50mcg 180un inhale 1 /Dose its dose by Varn, N.P. - mouth twice 10/21 a day /2017 Estrace 03/15 Hx Cream 0.1mg/GM 42.50 1 596.9 0gm application Madelyn, - two times M.D., FACP 04/27 Levofloxacin 02/03 Hx Tablets 500mg 7tabs 1 po qd 496 Deuce Joshi MWendyD., FACP 04/15 Advair Diskus 02/03 Hx Aerosol 500-50mcg 1unit 1 puff bid /Dose s Deuce Joshi M.D., [facility] 06/16 Alprazolam 12/28 Hx Tablets 0.25mg 30tab 1 tab three 300.00 s times daily Madelyn, - as needed M.D., FACP 08/09 Prednisone 12/10 Hx Tablets 10mg 15tab 1 tablet by 496 s mouth every Madelyn, - morning for M.D., [facility] 02/03 one week - then 1/2 tablet by mouth for one week - then 1/4 tablet by mouth for one week Robitussin ac 12/10 Hx Solution 4Oz 1-2 tsp at 496 bedtime as Deuce Joshi M.D., [facility] 08/08 Wellbutrin SR 12/10 Hx Tablets ER 100mg 30tab 1 by mouth 496 12HR s every Am Deuce Joshi M.D., [facility] 02/03 Nebulizer 12/10 Hx use as J44.9 directed Deuce Joshi M.D., [facility] 07/18 Levofloxacin 12/03 Hx Tablets 500mg 7tabs 1 tab by 496 mouth every Madelyn, - day M.DWendy, [facility] 12/10 Prednisone 12/03 Hx Tablets 5mg 50tab 4 tabs po qd 496 s x 4d then 3 Madelyn, - tabs po qd x M.DWendy, [facility] 12/10 3d then tabs po qd x 2d then 1 tab po qd x 1 d then 1/2 tab po qd x 2d. Combivent 09/14 Hx Aerosol 18-103mcg 14.7u inhale 2 /Act nits puffs by [place]argav[place], N.P. - mouth tid 12/12 Aspirin 03/25 Hx Tablets 81mg 1 by mouth once daily Deuce Wadsworth M.D. 12/26 Chantix 12/02 Hx Start 1unit use as Pack s Deuce York M.D., [facility] 03/25 Effexor XR 12/01 Hx Caps ER 150mg 90cap 1 tablet 24HR s daily Deuce Joshi M.D., [facility] 02/22 Soma 12/01 Hx Tablets 350mg 90tab 1 tab by Garrison S. s mouth q6 [place], - hours as M.Viri 06/19 needed mdd Advair Diskus Hx 250-50mcg 3mont 1 inhalation Maryjo / /Dose hs twice daily Deuce Joshi M.D., [facility] 02/03 Combivent Hx 103-18mcg 1 Inhalation Madelyn, /0000 /Act Twice A Day MD Maryjo - as Needed 09/14 Cheratussin ac Hx 100-10mg/ 118ml 1-2 tsp po Maryjo /0000 5ML qhs prn Madelyn, - M.DWendy, [facility] 12/01 Azithromycin Hx 250mg 6unit 2 tabs po Maryjo /0000 s day 1 then 1 Madelyn, - po qd til M.D., [facility] 12/01 Alendronate Hx Tabs 70mg 4tabs take 1 Maryjo Sodium /0000 tablet by Madelyn, - mouth every M.D., [facility] Lipitor Hx Tablets 20mg 90tab 1 po qd 272.4 Jeni /0000 s Varn, N.P. - 01/14 Copaxone Hx Soln 20mg/ml 90uni 1 inj daily Garrison S. /0000 Prefill ts Mike, - Syringe M.DWendy 03/16 Baclofen Hx Tablets 5mg 1 tablet bid Unknown /0000 as needed - 06/19 Warfarin Sodium 00 Hx Tablets 1mg [place], /0000 MD Suleiman - 06/12 Warfarin Sodium Hx Tablets 3mg [place], /0000 MD Suleiman - 06/12 Oxycodone-Aceta Hx Tablets 5-325mg [place], minophen /0000 MD Suleiman - 06/12 Medications Administered in Office Medication Date Status Form Strength Qnty SIG Indications Ordering Provider Prolia Administered Injection Nurse Visit Injection, 017 A Denosumab, 1MG Prolia Administered Injection Nurse Visit Injection, 017 A Denosumab, 1MG Prolia Administered Injection Nurse Visit Injection, 016 A Denosumab, 1MG Immunizations CPT Code Status Date Vaccine Reaction Lot # [id number] Given 02/09/2016 Influenza Virus Vaccine, no reaction noted [id number] Quadrivalent, Split, .... hh Preservative Free 15958 Given 08/12/2015 Pneumococcal Conjugate [id number] Vaccine 13 Valent For Intramuscular Use Q2039 Given 03/05/2015 Flu Vacc[place] 37236 Given 02/26/2014 Fluzone High Dose Q2037 Given 04/18/2012 Fluvirin Im 3Yrs And Older Q2037 Given 04/18/2012 Fluvirin Im 3Yrs And Older [id number] 18102 Given 04/18/2012 Zoster (Zostavax) [id number] 73808 Given 02/03/2011 Influenza Virus 3Yrs & Over [id number] 63801 Given 03/20/2010 Influenza Virus 3Yrs & Over [id number] 72590 Given 04/24/2009 Administration Swine Flu Shot 27645 Given 04/24/2009 Influenza Virus Vaccine, Pandemic Formulation 24764 Given 02/24/2009 Influenza Virus 3Yrs & Over 21483 Given 02/16/2008 Pneumonia Vaccine 29127 Given 02/16/2008 Pneumonia Vaccine 37002 Given 02/16/2008 Influenza Virus 3Yrs & Over 97251 Given 04/18/2007 Influenza Virus 3Yrs & Over 64686 Given 06/23/2006 Tdap - Tetanus/Diptheria/Acellular Pertussis 02450 Given 06/23/2006 Tdap - Tetanus/Diptheria/Acellular Pertussis 74568 Given 04/04/2006 Influenza Virus 3Yrs & Over Vital Signs Date Vital Result Comment 06/19/2018 11:45am Height 67 inches 5'7" Weight 121.38 lb Heart Rate 70 /min BP Systolic 98 mmHg BP Diastolic 58 mmHg BMI (Body Mass Index) 19.0 kg/m2 06/13/2018 9:17am Height 67 inches 5'7" Weight 123.00 lb Heart Rate 72 /min BP Systolic Sitting 120 mmHg Lue regular cuff BP Diastolic Sitting 82 mmHg Lue regular cuff Respiratory Rate 12 /min O2 % BldC Oximetry 93 % BMI (Body Mass Index) 19.3 kg/m2 03/22/2018 11:13am Height 67 inches 5'7" Weight 116.00 lb Heart Rate 93 /min BP Systolic 135 mmHg BP Diastolic 73 mmHg O2 % BldC Oximetry 38027 % BMI (Body Mass Index) 18.2 kg/m2 01/25/2018 11:54am Heart Rate 84 /min BP Systolic Sitting 122 mmHg BP Diastolic Sitting 80 mmHg Respiratory Rate 20 /min Body Temperature 97.8 F Pain Level 0 12/26/2017 2:54pm Weight 108.50 lb Heart Rate 101 /min BP Systolic Sitting 128 mmHg right arm BP Diastolic Sitting 76 mmHg right arm 12/26/2017 1:25pm Heart Rate 92 /min BP Systolic 126 mmHg BP Diastolic 84 mmHg Body Temperature 98.3 F Pain Level 3 11/25/2017 10:58am Height 66.25 inches 5'6.25" Weight 111.00 lb Heart Rate 84 /min BP Systolic Sitting 140 mmHg BP Diastolic Sitting 80 mmHg Respiratory Rate 16 /min Pain Level 2 BMI (Body Mass Index) 17.8 kg/m2 11/23/2017 1:58pm Height 66.25 inches 5'6.25" Weight 110.00 lb Heart Rate 106 /min BP Systolic Sitting 110 mmHg BP Diastolic Sitting 68 mmHg Body Temperature 97.8 F O2 % BldC Oximetry 92 % BMI (Body Mass Index) 17.6 kg/m2 11/14/2017 9:21am Height 66.25 inches 5'6.25" Weight 110.00 lb Heart Rate 70 /min BP Systolic Sitting 118 mmHg Lue reg cuff BP Diastolic Sitting 60 mmHg Lue reg cuff Respiratory Rate 20 /min O2 % BldC Oximetry 93 % BMI (Body Mass Index) 17.6 kg/m2 Neck Circumference in inches 13.5 10/31/2017 3:28pm Height 66.25 inches 5'6.25" Weight 109.00 lb BP Systolic 126 mmHg BP Diastolic 86 mmHg Body Temperature 98.0 F BMI (Body Mass Index) 17.5 kg/m2 10/21/2017 4:19pm Weight 113.00 lb Heart Rate 95 /min BP Systolic 110 mmHg BP Diastolic 60 mmHg Body Temperature 97.8 F O2 % BldC Oximetry 92 % 03/16/2017 10:45am Height 68 inches 5'8" Weight 116.12 lb Heart Rate 84 /min BP Systolic Sitting 136 mmHg BP Diastolic Sitting 72 mmHg Respiratory Rate 16 /min BMI (Body Mass Index) 17.7 kg/m2 01/07/2017 11:27am Weight 119.00 lb Heart Rate 95 /min BP Systolic Sitting 110 mmHg BP Diastolic Sitting 70 mmHg Body Temperature 98.6 F O2 % BldC Oximetry 93 % 12/28/2016 1:23pm Weight 117.75 lb Heart Rate 106 /min BP Systolic 110 mmHg BP Diastolic 68 mmHg Body Temperature 98.7 F O2 % BldC Oximetry 94 % 08/04/2016 2:36pm Weight 122.00 lb Heart Rate 100 /min BP Systolic Sitting 104 mmHg BP Diastolic Sitting 68 mmHg Body Temperature 97.8 F O2 % BldC Oximetry 95 % 07/22/2016 11:05am Weight 124.00 lb with shoes Heart Rate 88 /min BP Systolic 158 mmHg BP Diastolic 90 mmHg 07/07/2016 10:42am Height 66 inches 5'6" Weight 125.00 lb Heart Rate 86 /min BP Systolic 132 mmHg BP Diastolic 73 mmHg Pain Level 4 BMI (Body Mass Index) 20.2 kg/m2 06/22/2016 9:59am Weight 123.50 lb Heart Rate 92 /min BP Systolic Sitting 140 mmHg BP Diastolic Sitting 78 mmHg Body Temperature 98.4 F O2 % BldC Oximetry 93 % 04/16/2016 2:45pm Weight 123.00 lb with shoes Heart Rate 93 /min BP Systolic Sitting 140 mmHg BP Diastolic Sitting 80 mmHg Body Temperature 98.1 F O2 % BldC Oximetry 94 % 03/02/2016 9:50am Weight 122.12 lb Heart Rate 78 /min BP Systolic Sitting 120 mmHg BP Diastolic Sitting 82 mmHg 02/09/2016 11:27am Weight 123.00 lb Heart Rate 98 /min BP Systolic Sitting 132 mmHg BP Diastolic Sitting 80 mmHg Respiratory Rate 14 /min Body Temperature 98.4 F O2 % BldC Oximetry 98 % 10/24/2015 1:52pm Weight 120.00 lb Heart Rate 78 /min BP Systolic Sitting 150 mmHg BP Diastolic Sitting 86 mmHg Body Temperature 97.9 F O2 % BldC Oximetry 93 % 10/24/2015 1:48pm Weight 120.00 lb Heart Rate 79 /min BP Systolic Sitting 150 mmHg BP Diastolic Sitting 86 mmHg Body Temperature 97.8 F O2 % BldC Oximetry 93 % 08/12/2015 10:51am Height 66 inches 5'6" Weight 120.00 lb Heart Rate 78 /min BP Systolic Sitting 126 mmHg BP Diastolic Sitting 82 mmHg Respiratory Rate 14 /min Body Temperature 98.0 F O2 % BldC Oximetry 92 % BMI (Body Mass Index) 19.4 kg/m2 04/30/2015 4:32pm Weight 118.75 lb Heart Rate 86 /min BP Systolic Sitting 140 mmHg BP Diastolic Sitting 82 mmHg Body Temperature 99.4 F O2 % BldC Oximetry 92 % 11/26/2014 10:32am Height 67 inches 5'7" Weight 124.00 lb Heart Rate 64 /min BP Systolic Sitting 130 mmHg BP Diastolic Sitting 70 mmHg Respiratory Rate 14 /min BMI (Body Mass Index) 19.4 kg/m2 06/07/2014 10:01am Weight 128.50 lb Heart Rate 84 /min BP Systolic Sitting 116 mmHg BP Diastolic Sitting 74 mmHg Body Temperature 97.3 F O2 % BldC Oximetry 92 % 06/05/2014 2:34pm Weight 128.00 lb Heart Rate 80 /min BP Systolic Sitting 144 mmHg BP Diastolic Sitting 70 mmHg Body Temperature 97.9 F 04/10/2014 11:27am Height 66 inches 5'6" Weight 124.00 lb Heart Rate 97 /min BP Systolic 68 mmHg BP Systolic Sitting 130 mmHg BP Diastolic Sitting 70 mmHg O2 % BldC Oximetry 99 % BMI (Body Mass Index) 20.0 kg/m2 03/27/2014 9:14am Height 66 inches 5'6" Weight 125.50 lb Heart Rate 79 /min BP Systolic Sitting 142 mmHg BP Diastolic Sitting 78 mmHg Body Temperature 98.3 F O2 % BldC Oximetry 93 % BMI (Body Mass Index) 20.3 kg/m2 03/21/2014 11:54am Height 66 inches 5'6" Weight 124.00 lb Heart Rate 100 /min BP Systolic Sitting 124 mmHg BP Diastolic Sitting 60 mmHg Body Temperature 98.8 F O2 % BldC Oximetry 90 % BMI (Body Mass Index) 20.0 kg/m2 11/27/2013 9:09am Height 66 inches 5'6" Weight 127.50 lb Heart Rate 78 /min BP Systolic Sitting 118 mmHg BP Diastolic Sitting 76 mmHg Body Temperature 98.3 F BMI (Body Mass Index) 20.6 kg/m2 10/23/2013 2:45pm Height 66 inches 5'6" Weight 128.00 lb Heart Rate 98 /min BP Systolic Sitting 120 mmHg BP Diastolic Sitting 78 mmHg Respiratory Rate 16 /min BMI (Body Mass Index) 20.7 kg/m2 10/10/2013 2:11pm Height 66 inches 5'6" Weight 128.50 lb Heart Rate 80 /min BP Systolic 130 mmHg BP Diastolic 78 mmHg Respiratory Rate 16 /min Body Temperature 98.1 F BMI (Body Mass Index) 20.7 kg/m2 09/04/2013 11:26am Weight 129.00 lb Heart Rate 90 /min BP Systolic Sitting 130 mmHg BP Diastolic Sitting 84 mmHg O2 % BldC Oximetry 90 % 08/16/2013 3:45pm Weight 126.00 lb Heart Rate 82 /min BP Systolic Sitting 124 mmHg BP Diastolic Sitting 72 mmHg O2 % BldC Oximetry 92 % Peak Flow Meter 160 150,145 04/19/2013 4:08pm Weight 125.00 lb Heart Rate 78 /min BP Systolic Sitting 124 mmHg BP Diastolic Sitting 72 mmHg Body Temperature 96.9 F 02/22/2013 9:16am Weight 125.50 lb Heart Rate 84 /min BP Systolic 130 mmHg BP Diastolic 80 mmHg 11/06/2012 11:21am Weight 118.00 lb Heart Rate 80 /min BP Systolic Sitting 142 mmHg BP Diastolic Sitting 82 mmHg 10/16/2012 11:37am Weight 120.50 lb Heart Rate 76 /min BP Systolic Sitting 120 mmHg BP Diastolic Sitting 70 mmHg 10/04/2012 3:03pm Heart Rate 78 /min BP Systolic Sitting 130 mmHg BP Diastolic Sitting 82 mmHg Respiratory Rate 15 /min 05/01/2012 9:58am Height 67.5 inches 5'7.50" Weight 113.00 lb Heart Rate 78 /min Irregular BP Systolic Sitting 118 mmHg BP Diastolic Sitting 80 mmHg O2 % BldC Oximetry 95 % BMI (Body Mass Index) 17.4 kg/m2 04/27/2012 10:50am Height 67.5 inches 5'7.50" Heart Rate 76 /min BP Systolic Sitting 142 mmHg BP Diastolic Sitting 78 mmHg Body Temperature 97.4 F 03/03/2012 3:52pm Height 67.5 inches 5'7.50" Weight 112.00 lb Heart Rate 92 /min BP Systolic Sitting 150 mmHg BP Diastolic Sitting 76 mmHg Body Temperature 98.6 F oral` BMI (Body Mass Index) 17.3 kg/m2 11/08/2011 8:56am Height 67.5 inches 5'7.50" Weight 115.00 lb Heart Rate 80 /min BP Systolic Sitting 130 mmHg BP Diastolic Sitting 74 mmHg BMI (Body Mass Index) 17.7 kg/m2 09/06/2011 4:45pm Height 67.5 inches 5'7.50" Weight 116.00 lb Heart Rate 76 /min BP Systolic Sitting 114 mmHg BP Diastolic Sitting 62 mmHg BMI (Body Mass Index) 17.9 kg/m2 08/10/2011 2:11pm Height 67.5 inches 5'7.50" Weight 119.00 lb Heart Rate 80 /min BP Systolic Sitting 148 mmHg repeat BP sitting 148/80; laying 160/90 BP Diastolic Sitting 74 mmHg repeat BP sitting 148/80; laying 160/90 BMI (Body Mass Index) 18.4 kg/m2 04/15/2011 10:22am Height 67.5 inches 5'7.50" Weight 115.75 lb Heart Rate 68 /min BP Systolic Sitting 144 mmHg L BP Diastolic Sitting 90 mmHg L BMI (Body Mass Index) 17.9 kg/m2 04/13/2011 9:09am Height 67.5 inches 5'7.50" Heart Rate 100 /min BP Systolic 120 mmHg BP Diastolic 80 mmHg O2 % BldC Oximetry 97 % 03/15/2011 10:07am Height 67.5 inches 5'7.50" Weight 115.00 lb Heart Rate 86 /min BP Systolic Sitting 150 mmHg BP Diastolic Sitting 68 mmHg BMI (Body Mass Index) 17.7 kg/m2 02/10/2011 2:38pm Height 67.5 inches 5'7.50" Weight 116.00 lb Heart Rate 86 /min BP Systolic Sitting 114 mmHg BP Diastolic Sitting 62 mmHg O2 % BldC Oximetry 91 % BMI (Body Mass Index) 17.9 kg/m2 02/03/2011 2:14pm Height 67.5 inches 5'7.50" Weight 113.00 lb Heart Rate 70 /min BP Systolic Sitting 108 mmHg BP Diastolic Sitting 62 mmHg Body Temperature 99.9 F O2 % BldC Oximetry 90 % 91-92% post cough BMI (Body Mass Index) 17.4 kg/m2 12/28/2010 10:09am Height 67.5 inches 5'7.50" Weight 116.00 lb Heart Rate 76 /min BP Systolic Sitting 110 mmHg BP Diastolic Sitting 68 mmHg BMI (Body Mass Index) 17.9 kg/m2 12/10/2010 3:48pm Height 67.5 inches 5'7.50" Weight 114.00 lb Heart Rate 84 /min BP Systolic Sitting 110 mmHg BP Diastolic Sitting 70 mmHg Body Temperature 98.8 F O2 % BldC Oximetry 95 % BMI (Body Mass Index) 17.6 kg/m2 12/03/2010 3:09pm Height 67.5 inches 5'7.50" Weight 115.00 lb Heart Rate 94 /min BP Systolic Sitting 126 mmHg BP Diastolic Sitting 80 mmHg Body Temperature 98.3 F O2 % BldC Oximetry 92 % 92 txafter neb BMI (Body Mass Index) 17.7 kg/m2 04/23/2010 3:01pm Weight 123.00 lb Heart Rate 80 /min BP Systolic 120 mmHg BP Diastolic 78 mmHg 03/25/2010 9:19am Weight 119.00 lb Heart Rate 92 /min BP Systolic 140 mmHg BP Diastolic 78 mmHg O2 % BldC Oximetry 96 % Results Test Date Facility Test Result H/L Range Note CBC Auto Diff 11/25/2017 [facility] White Blood 5.7 10^3/uL N 3.5-10.[address] [place] [address] [phone] Red Blood Count 4.68 10^6/uL N 4.00-5.40 Hemoglobin 14.9 g/dL N 12.0-16.0 Hematocrit 44 % N 35-47 Mean Corpuscular Volume 94 fL N 80-97 Mean Corpuscular Hemoglobin 32 pg High 27-31 Mean Corpuscular HGB Conc 34 g/dL N 31-36 Red Cell Distribution Width 14 % N 10.5-15 Platelet Count 293 10^3/uL N 150-450 Mean Platelet Volume 7.1 um3 Low 7.4-10.4 Abs Neutrophils 3.4 10^3/uL N 1.5-7.7 Abs Lymphocytes 1.4 10^3/uL N 1.0-4.8 Abs Monocytes 0.6 10^3/uL N 0-0.8 Abs Eosinophils 0.2 10^3/uL N 0-0.6 Abs Basophils 0 10^3/uL N 0-0.2 Abs Nucleated RBC 0 10^3/uL Granulocyte % 59.9 % N 38-83 Lymphocyte % 25.6 % N 25-47 Monocyte % 9.8 % High 0-7 Eosinophil % 3.9 % N 0-6 Basophil % 0.8 % N 0-2 Nucleated Red Blood Cells % 0 Comp Metabolic Panel 11/25/2017 [facility] Sodium 140 mmol/L N 135-[address] [place] [address] [phone] Potassium 4.1 mmol/L N 3.5-5.0 Chloride 103 mmol/L N 101-111 Co2 Carbon Dioxide 31 mmol/L N 22-32 Anion Gap 6 mmol/L N 2-11 Glucose 97 mg/dL N 70-100 Blood Urea Nitrogen 14 mg/dL N 6-24 Creatinine 0.49 mg/dL Low 0.51-0.95 BUN/Creatinine Ratio 28.6 High 8-20 Calcium 9.7 mg/dL N 8.6-10.3 Total Protein 6.7 g/dL N 6.4-8.9 Albumin 4.2 g/dL N 3.2-5.2 Globulin 2.5 g/dL N 2-4 Albumin/Globulin Ratio 1.7 N 1-3 Total Bilirubin 0.30 mg/dL N 0.2-1.0 Alkaline Phosphatase 84 U/L N 34-104 Alt 16 U/L N 7-52 Ast 19 U/L N 13-39 Egfr Non- 124.9 >60 Egfr 151.1 >60 1 Urinalysis Profile 11/25/2017 [facility] Urine Color Yellow [address] [place], [place] [id number] [phone] Urine Appearance Clear Urine Specific [place] 1.017 N 1.010-1.030 Urine pH 6.0 N 5-9 Urine Urobilinogen Negative Negative Urine Ketones Negative Negative Urine Protein Negative Negative Urine Leukocytes Negative Negative Urine Blood Negative Negative Urine Nitrite Negative Negative Urine Bilirubin Negative Negative Urine Glucose Negative Negative Inr/Protime 11/25/2017 [facility] Inr 0.89 N 0.77-1.[address] [place] [address] [phone] Laboratory test 11/25/2017 [facility] Partial 27.4 seconds N 26.0-36.[address] [place] [address] PTT [phone] Type & Screen 11/25/2017 [facility] Patient O Positive [address] [place] [address] [phone] Antibody Screen NEGATIVE Urine Culture And 11/25/2017 [facility] Urine Culture SEE RESULT [address] [place], [place] [id number] [phone] Urine Culture And 07/20/2017 [facility] Urine Culture SEE RESULT [address] [place], [place] [id number] [phone] Laboratory test 10/01/2016 [facility] Surgical SEE RESULT 4 , [address] [place] [address] [phone] CBC Auto Diff 02/06/2016 [facility] White Blood 5.2 10^3/uL N 3.5-[address] Count [address] [place] [address] [phone] Red Blood Count 4.54 10^6/uL N 4.0-5.4 Hemoglobin 14.2 g/dL N 12.0-16.0 Hematocrit 43 % N 35-47 Mean Corpuscular Volume 94 fL N 80-97 Mean Corpuscular Hemoglobin 31 pg N 27-31 Mean Corpuscular HGB Conc 33 g/dL N 31-36 Red Cell Distribution Width 14 % N 10.5-15 Platelet Count 279 10^3/uL N 150-450 Mean Platelet Volume 8 um3 N 7.4-10.4 Abs Neutrophils 3.2 10^3/uL N 1.5-7.7 Abs Lymphocytes 1.2 10^3/uL N 1.0-4.8 Abs Monocytes 0.5 10^3/uL N 0-0.8 Abs Eosinophils 0.2 10^3/uL N 0-0.6 Abs Basophils 0 10^3/uL N 0-0.2 Abs Nucleated RBC 0 10^3/uL N Granulocyte % 61.3 % N 38-83 Lymphocyte % 23.7 % Low 25-47 Monocyte % 10.4 % High 1-9 Eosinophil % 3.7 % N 0-6 Basophil % 0.9 % N 0-2 Nucleated Red Blood Cells % 0 N Comp Metabolic Panel 02/06/2016 [facility] Sodium 137 mmol/L N 133-[address] [place] [address] [phone] Potassium 4.2 mmol/L N 3.5-5.0 Chloride 103 mmol/L N 101-111 Co2 Carbon Dioxide 30 mmol/L N 22-32 Anion Gap 4 mmol/L N 2-11 Glucose 89 mg/dL N 70-100 Blood Urea Nitrogen 14 mg/dL N 6-24 Creatinine 0.57 mg/dL N 0.51-0.95 BUN/Creatinine Ratio 24.6 High 8-20 Calcium 9.1 mg/dL N 8.6-10.3 Total Protein 6.3 g/dL Low 6.4-8.9 Albumin 4.0 g/dL N 3.2-5.2 Globulin 2.3 g/dL N 2-4 Albumin/Globulin Ratio 1.7 N 1-3 Total Bilirubin 0.50 mg/dL N 0.2-1.0 Alkaline Phosphatase 79 U/L N 34-104 Alt 15 U/L N 7-52 Ast 20 U/L N 13-39 Egfr Non- 105.2 N >60 Egfr 135.2 N >60 6 Vitamin D, 25 11/13/2013 [facility] 25-Hydroxy Vitamin <4.0 ng/ mL N [address] [place] [address] [phone] 25-Hydroxy Vitamin D3 28 ng/mL N 25-Hydroxy Vitamin D Total 28 ng/mL N 8 Laboratory 11/13/2013 [facility] Hepatitis C Nonreactive N Nonreactive test finding [address] [place] [address] [phone] Comp Metabolic 11/13/2013 [facility] Sodium 138 mmol/L N 133- [address] [place] [address] [phone] Potassium 4.1 mmol/L N 3.7-5.6 Chloride 104 mmol/L N 101-111 Co2 Carbon Dioxide 28 mmol/L N 22-32 Anion Gap 6 mmol/L N 2-11 Glucose 90 mg/dL N 70-100 Blood Urea Nitrogen 14 mg/dL N 6-24 Creatinine 0.53 mg/dL N 0.51-0.95 BUN/Creatinine Ratio 26.4 High 8-20 Calcium 9.1 mg/dL N 8.6-10.3 Total Protein 6.3 g/dL Low 6.4-8.9 Albumin 4.1 g/dL N 3.2-5.2 Globulin 2.2 g/dL N 2-4 Albumin/Globulin Ratio 1.9 N 1-3 Total Bilirubin 0.50 mg/dL N 0.2-1.0 Alkaline Phosphatase 68 U/L N 34-104 Alt 14 U/L N 7-52 Ast 20 U/L N 13-39 Egfr Non- 115.4 N >60 Egfr 148.4 N >60 9 Lipid Profile 11/13/2013 [facility] Triglycerides 53 mg/dL N 10 (Trig/Chol/HDL) [address] [place] [address] [phone] Cholesterol 286 mg/dL N 11 HDL Cholesterol 73.8 mg/dL N 12 LDL Cholesterol 202 mg/dL N 13 Basic Metabolic Panel 08/16/2013 [facility] Sodium 135 mmol/L N 133-[address] [place] [address] [phone] Potassium 5.2 mmol/L N 3.7-5.6 Chloride 99 mmol/L Low 101-111 Co2 Carbon Dioxide 31 mmol/L N 22-32 Anion Gap 5 mmol/L N 2-11 Glucose 73 mg/dL N 70-100 Blood Urea Nitrogen 13 mg/dL N 6-24 Creatinine 0.46 mg/dL Low 0.51-0.95 BUN/Creatinine Ratio 28.3 High 8-20 Calcium 9.6 mg/dL N 8.6-10.3 Egfr Non- 135.9 N >60 Egfr 174.8 N >60 14 Comp Metabolic Panel 10/16/2012 [facility] Sodium 138 mmol/L 133-[address] [place] [address] [phone] Potassium 4.0 mmol/L 3.5-5.0 Chloride 103 mmol/L [...] Egfr Non- 123.8 >60 Egfr 159.2 >60 15 Laboratory test 10/16/2012 [facility] C Reactive < 0.5 mg/dL Less than finding [address] Protein 0.5 [place] [address] [phone] Erythrocyte Sed Rate 16 mm/Hr 0-40 Laboratory test 10/16/2012 [facility] TSH (Thyroid 2.25 0.34- 5.[address] Stimulating miu/[place] [address] Horm) [phone] CBC With Manual 10/16/2012 [facility] White Blood 5.9 4.8- 10.[address] Count 10^3/uL [place], [place] [id number] [phone] Red Blood Count 4.46 10^6/uL 4.0-5.4 Hemoglobin [...] 0-6 RBC Morphology Normal Normal Laboratory test 10/16/2012 [facility] LDH 190 U/L High 95-[address] [place], [place] [address] [phone] Vitamin D 1,25 11/01/2011 [facility] Vitamin D, 1,25 63 pg/mL 18-78 16 And Vitamin D,[address] [place] [address] [phone] Vitamin D, 25 11/01/2011 [facility] 25-Hydroxy <4.0 () Hydroxy [address] Vitamin D2 ng/[place] [address] [phone] 25-Hydroxy Vitamin D3 22 ng/mL () 25-Hydroxy Vitamin D Total 22 ng/mL Abnormal () 17 Comp Metabolic Panel 11/01/2011 [facility] Sodium 134 mmol/L Low 135-[address] [place] [address] [phone] Potassium 4.2 mmol/L 3.5-5.0 Chloride 102 mmol/L 101-111 Co2 (Carbon Dioxide) 29.0 mmol/L 22-32 Anion Gap 3.0 mmol/L 2-11 18 Glucose 101 mg/dL High 70-100 BUN 13 mg/dL 6-24 Creatinine 0.5 mg/dL Low 0.50-1.40 One Over Creatinine 2.00 BUN/Creatinine Ratio 26.0 High 8-20 Calcium 8.9 mg/dL 8.1-9.9 Total Protein 6.2 GM/DL 6.2-8.1 Albumin 3.9 GM/DL 3.2-5.2 Globulin 2.3 GM/DL 2-4 Albumin/Globulin Ratio 1.7 1-3 Bilirubin Total 0.7 mg/dL 0.4-1.5 19 Alkaline Phosphatase 64 U/L 30-110 Alt (SGPT) 20 U/L 14-54 Ast (Sgot) 23 U/L 12-42 eGFR Non- 124.2 > 60 eGFR 159.7 > 60 20 Lipid Profile 11/01/2011 [facility] Triglyceride 43 mg/dL 40- 200 (Trig/Chol/HDL) [address] [place] [address] [phone] Cholesterol 246 mg/dL High Less Than 200 21 High Density Lipoprotein 90 mg/dL High 40-60 22 Cholesterol/HDL Ratio 2.73 AVERAGE 1-4.44 Low Density Lipoprotein 147 mg/dL High Less Than 100 23 Laboratory test 11/01/2011 [facility] TSH 2.76 MIU/ML 0.34- 5.[address] [place] [address] [phone] Laboratory test 04/13/2011 [facility] CPK 134 U/L 0-[address] ([place] [address] [employer]) [phone] CKMB 04/13/2011 [facility] CKMB In 4.3 NG/ML High 0.3-4.[address] NG/[place] [address] [phone] % CKMB 3 %MB 0-9 24 Laboratory test 04/13/2011 [facility] Troponin-I 0.01 NG/ML 0 -0.[address] [place] [address] [phone] CBC Auto Diff 04/13/2011 [facility] White Blood 5.2 CUMM 4.8- 10.[address] [place] [address] [phone] Red Cell Count 4.39 CUMM 4.2-5.4 Hemoglobin [...] Basophils 0.1 0-0.2 Comp Metabolic Panel 04/13/2011 [facility] Sodium 138 mmol/L 135-[address] [place] [address] [phone] Potassium 3.9 mmol/L 3.5-5.0 Chloride 101 mmol/L 101-111 Co2 (Carbon Dioxide) 29.0 mmol/L 22-32 Anion Gap 8.0 mmol/L 2-11 26 Glucose 95 mg/dL 70-100 BUN 11 mg/dL 6-24 Creatinine 0.5 mg/dL Low 0.50-1.40 One Over Creatinine 2.00 BUN/Creatinine Ratio 22.0 High 8-20 Calcium 8.8 mg/dL 8.1-9.9 Total Protein 6.2 GM/DL 6.2-8.1 Albumin 3.8 GM/DL 3.2-5.2 Globulin 2.4 GM/DL 2-4 Albumin/Globulin Ratio 1.6 1-3 Bilirubin Total 0.5 mg/dL 0.4-1.5 27 Alkaline Phosphatase 70 U/L 30-110 Alt (SGPT) 24 U/L 14-54 Ast (Sgot) 28 U/L 12-42 eGFR Non- 124.2 > 60 eGFR 159.7 > 60 28 Laboratory test 03/19/2011 [facility] TSH 2.89 MIU/ML 0.34- 5.[address] [place] [address] [phone] Vitamin D, 25 03/19/2011 [facility] 25-Hydroxy <4.0 ng/mL () Hydroxy [address] Vitamin D2 [place] [address] [phone] 25-Hydroxy Vitamin D3 37 ng/mL () 25-Hydroxy Vitamin D Total 37 ng/mL () 29 Vitamin D 1,25 03/19/2011 [facility] Vitamin D, 1,25 65 pg/mL 18-78 30 And Vitamin D,[address] [place] [address] [phone] Surgical 07/11/2006 [facility] Surgical [address] Pathology ----- <[place] [address] NOTE> [phone] 1 Because ethnic data is not always readily [...] 15-29 5 Kidney failure <15 (or dialysis) 2 SEE RESULT BELOW Name: NABILA CLEARY : [address]: Akosua Guzman MD Acct: [id number] Unit: [id number] AGE: 71 Location: PAT Re11/25/17 SEX: F Status: REG REF SPEC: [id number] CUCA: 11/25/[address]: Akosua Guzman MD REQ: [id number] RECD: 11/25/17 STATUS: RAIZA GUDINO DR: Hugo Rogers BUSINESS LAW INSTRUCTOR _ SOURCE: URINE SPDESC: ORDERED: Urine Culture QUERIES: Urine Source: Clean Catch Procedure Result Reported Site Urine Culture Final 07/14/18- 1312 ML No Growth (<1,000 CFU/mL) * ML - Main Lab . END OF REPORT DEPARTMENT OF PATHOLOGY, [address] [place] [address] Kervin Read M.D. Director [facility] # [id number] 3 SEE RESULT BELOW Name: GASTONNABILA Izabel : [address]: Jeni Gardner NP Acct: [id number] Unit: [id number] AGE: 71 Location: [facility] Re07/20/17 SEX: F Status: REG REF SPEC: [id number] CUCA: 07/20/17-[address]: Jeni Gardner NP REQ: [id number] RECD: 07/20/17 STATUS: RAIZA GUDINO DR: Abida Wadsworth MD _ SOURCE: URINE SPDESC: ORDERED: Urine Culture Procedure Result Reported Site Urine Culture Final 07/22/17- 0854 ML Organism 1 ESCHERICHIA COLI [place] Count >100,000 (Many) CFU/ML 1. ESCHERICHIA COLI [...] . END OF REPORT DEPARTMENT OF PATHOLOGY, [address] [place] [address] Kervin Read M.D. Director [facility] # [id number] 5 SEE RESULT BELOW Name: NABILA CLEARY : [address]: Adrian España MD Acct: [id number] Unit: [id number] AGE: 70 Location: [facility] Re10/01/16 SEX: F Status: REG REF SPEC: [id number] CUCA: 10/01/16-[address] [facility] [address]: Adrian España MD REQ: [id number] RECD: 10/01/16 STATUS: ZAFAR GUDINO DR: Dakota Gardner BUSINESS LAW INSTRUCTOR _ ORDERED: LEVEL 4/3 COMMENTS: [id number] FINAL DIAGNOSIS 1. Skin, left cheek superior, [...] performed at Main Lab DEPARTMENT OF PATHOLOGY, [address] [place] [address] Kervin Read M.D. Director [facility] # [id number] RUN DATE: 10/06/16 [facility] LAB LIVE PAGE 2 Patient: NAIBLA CLEARY [id number] (Continued) GROSS DESCRIPTION (Continued) Signed (signature on file) Fatuma Morrison MD 1331 END OF REPORT * ML=Testing performed at Main Lab DEPARTMENT OF PATHOLOGY, [address] [place] [address] Kervin Read M.D. Director [facility] # [id number] 6 Because ethnic data is not always readily [...] 15-29 5 Kidney failure <15 (or dialysis) 7 FASTING 8 -- REFERENCE VALUE -- 25-HYDROXY D TOTAL (D2+D3) Optimum levels in the healthy population are 20-50, patients with bone disease may benefit from higher levels within this range. Test Performed by: [facility] [place] [address] Zoning Administrator: Brad Langley III, M.D. 9 Because ethnic data is not always readily [...] 15-29 5 Kidney failure <15 (or dialysis) 10 Desirable <150 Borderline high 150-199 High 200-499 Very High >500 11 Desirable <200 Borderline high 200-239 High >239 12 Low <40 Desirable: 40-60 High: >60 13 Desirable <100 Near Optimal 100-129 Borderline high 130-159 High 160-189 Very High >189 14 Because ethnic data is not always readily [...] 15-29 5 Kidney failure <15 (or dialysis) 15 Because ethnic data is not always readily [...] 15-29 5 Kidney failure <15 (or dialysis) 16 Test Performed by: [place] [address] Zoning Administrator: Brad Langley III, M.D. 17 Interpretation: 10-24 (mild to moderate deficiency) -- REFERENCE VALUE -- 25-HYDROXY D TOTAL (D2+D3) Optimum levels in the normal population are 25-80 Test Performed by: [place] [address] Zoning Administrator: Brad Langley III, M.D. 18 Anion gap measurement may be of limited value in the presence of any alkalosis, especially in a combined acid base disorder. . 19 A metabolite of Naproxen, O-desmethylnaproxen, has been shown to interfere with the Jendrassik-Jono method for measuring total bilirubin. Samples from patients who have taken Naproxen have shown spurious elevation in total bilirubin levels. 20 Because ethnic data is not always readily [...] 15-29 5 Kidney failure <15 (or dialysis) 21 CHOLESTEROL INTERPRETATION: Desirable: Less than 200 MG/DL Borderline-High Risk: 200-239 MG/DL High-Risk: 240 MG/DL and over 22 HDL INTERPRETATION: Undesirable: High Risk: Less than 40 MG/DL Desirable: Low Risk: Greater than 60 MG/DL 23 LDL INTERPRETATION: Low Risk Optimal Level: LDL Less than 100 MG/DL Near or Above Optimal: LDL 100-129 MG/DL Borderline High Risk: LDL 130-159 MG/DL High Risk: LDL 160-189 MG/DL Very High Risk: LDL Greater than 189 MG/DL 24 INTERPRETATION %CK-MB < 5% NOT SUPPORTIVE OF DIAGNOSIS OF [place] 5 - <10% INDETERMINATE; SUGGEST SERIAL STUDIES IF CLINICALLY INDICATED 10% OR > CONSISTENT WITH DIAGNOSIS OF [place] . 25 New Reference Range and Interpretation effective 02/16/2002 TnI (ng/ml) INTERPRETATION Less Than 0.06 ng/mL NOT SUPPORTIVE OF DIAGNOSIS OF [place] 0.06 - 0.50 ng/ml INDETERMINATE: SUGGEST SERIAL STUDIES IF CLINICALLY INDICATED. Greater than 0.5 ng/mL CONSISTENT WITH DIAGNOSIS OF [place] . 26 Anion gap measurement may be of limited value in the presence of any alkalosis, especially in a combined acid base disorder. . 27 A metabolite of Naproxen, O-desmethylnaproxen, has been shown to interfere with the Jendrassik-Hendrix method for measuring total bilirubin. Samples from patients who have taken Naproxen have shown spurious elevation in total bilirubin levels. 28 Because ethnic data is not always readily [...] 15-29 5 Kidney failure <15 (or dialysis) 29 -- REFERENCE VALUE -- 25-HYDROXY D TOTAL (D2+D3) Optimum levels in the normal population are 25-80 Test Performed by: [facility] Pathology [address] [place] [address] Zoning Administrator: Brad Langley III, M.D. 30 Test Performed by: [facility] [address] [place], [place] [id number] Zoning Administrator: Brad Langley III, M.D. 31 ---- RUN DATE: 07/13/06 [facility] NMI LIVE PAGE 1 RUN TIME: 1521 Specimen Inquiry RUN USER: INTERFACE [id number] NABILA CLEARY 60/F <DEP [facility] 07/12> ([id number]) Celestino Stephen MD -- Specimen: [id number] SOUT Spec Date: 07/11/[address]: Celestino Sierra MD Spec Type: SURGICAL P Received: 07/12/06 Copies to: Maryjo Joshi MD SPECIMEN L3 -L4 DISC HISTORY PRE-OP DIAGNOSIS: L3-L4 disc protrusion GROSS DESCRIPTION The specimen is received in formalin labelled Nabila Cleary, L3-L4 Disc and consists of multiple fragments of hill-mixon fibrous soft tissue measuring 2.5 x 1.5 x 0.6 cm. in aggregate. Office Machine Servicer sections, one cassette. DIAGNOSIS Intervertebral disc, L3-4, discectomy - Intervertebral disc material. Signed Electronically by: KERVIN READ MD 07/13/06 -- -- DEPARTMENT OF PATHOLOGY, [address] [place] [address] [facility] Permit #[id number] [place] II, M.D. Director Kervin Read M.D. Air Crew Officer Carroll irector -- Procedures Date Code Description Status 03/22/2018 66571 EKG Tracing & Interpretation Completed 12/08/2017 46992 THR Total Hip Replacement Completed 12/08/2017 94124 THR Total Hip Replacement Completed 12/06/2017 89888 Diffusing Capacity Completed 12/06/2017 62715 Plethysmography Determination Lung Volumes & Per Completed Airway Resist 12/06/2017 49126 Pulmonary Function><Bronchodil Completed 11/27/2017 65387 Sleep Study Unattended,HRT Rate,Oxygen Sat,Resp Completed Effort/Airflow 11/23/2017 13409 EKG Tracing & Interpretation Completed 03/01/2017 88397 Admin Of Inj Completed 09/02/2016 66476 Admin Of Inj Completed 03/05/2016 44066 Chemotherpy Admin Subcutaneous/Im Non-Hormonal Completed Anti-Neoplastic 08/19/2015 30453132 Mammogram Completed 08/19/2015 [id number] Bone Mineral Density Test Completed 10/10/2013 54055 EKG Tracing & Interpretation Completed 08/22/2013 [id number] Mammogram Completed 11/11/2011 05415626 Colonoscopy Completed 08/10/2011 34456 EKG Tracing & Interpretation Completed 04/13/2011 09783 Noninvasive Ear Or Pulse Oximetry For Oxygen Completed Saturation 04/13/2011 03458 EKG Tracing & Interpretation Completed 03/18/2011 [id number] Bone Mineral Density Test Completed 02/18/2011 82456789 Mammogram Completed 02/10/2011 83612 Noninvasive Ear Or Pulse Oximetry For Oxygen Completed Saturation 02/03/2011 17959 Noninvasive Ear Or Pulse Oximetry For Oxygen Completed Saturation 12/10/2010 85592 Noninvasive Ear Or Pulse Oximetry For Oxygen Completed Saturation 12/03/2010 73346 Inhalation TX For Acute Airway Obstruction Completed W/Nebulizer/Inhaler 12/03/2010 20294 Noninvasive Ear Or Pulse Oximetry For Oxygen Completed Saturation 03/25/2010 45491 EKG Tracing & Interpretation Completed 09/24/2008 058628254 Bone Mineral Density Test Completed 09/12/2008 01089 EKG Tracing & Interpretation Completed 04/26/2008 65846 Noninvasive Ear Or Pulse Oximetry For Oxygen Completed Saturation 04/26/2008 12868 Noninvasive Ear Or Pulse Oximetry For Oxygen Completed Saturation 04/26/2008 44463 Inhalation TX For Acute Airway Obstruction Completed W/Nebulizer/Inhaler 09/06/2007 03807460 Mammogram Completed 07/13/2006 96873 EKG Tracing & Interpretation Completed 07/13/2006 94291 EKG Tracing & Interpretation Completed 07/11/2006 76579 Laminotomy W/Decomp NRV RT,One Interspace,Lumbar Completed 06/23/2006 34112 EKG Tracing & Interpretation Completed 04/29/2006 92659841 Mammogram Completed Encounters Type Date Location Provider Dx Diagnosis Office Visit 03/22/2018 [facility] Internal Jeni Gardner, R06.02 Shortness of 11:00a Medicine - N.P. breath [place] I49.3 Ventricular premature depolarization Z87.891 Personal history of nicotine dependence J44.1 Chronic obstructive pulmonary disease w (acute) exacerbation Office Visit 12/26/2017 [facility] Internal Jeni Gardner, I10 Essential 2:40p Medicine - N.P. (primary) [place] hypertension Office Visit 12/10/2017 [facility] Grzegorz West MD J44.9 Chronic 10:37a Assoc,pc obstructive Hospitalists pulmonary disease, unspecified E78.5 Hyperlipidemia, unspecified G35 Multiple sclerosis Office Visit 12/09/2017 10:37a [facility] Darlene J44.9 Chronic Assoc,pc Emory Marks, obstructive Hospitalists BUSINESS LAW INSTRUCTOR pulmonary disease, unspecified G35 Multiple sclerosis E78.5 Hyperlipidemia, unspecified Office Visit 12/08/2017 [facility] Bahgat J44.1 Chronic 10:36a Assoc,pc PENELOPE Wilson obstructive Hospitalists pulmonary disease w (acute) exacerbation E78.5 Hyperlipidemia, unspecified G35 Multiple sclerosis Office Visit 11/23/2017 2:00p [facility] Internal Hugo Rogers, Z01.818 Encounter for other Medicine - BUSINESS LAW INSTRUCTOR preprocedural [place] examination M16.12 Unilateral primary osteoarthritis, left hip J44.9 Chronic obstructive pulmonary disease, unspecified G35 Multiple sclerosis Office Visit 11/14/2017 Pulmonology And Laqu[place] Z01.811 Encounter for 9:30a Sleep Services Of MD Mynor preprocedural [facility] respiratory examination M16.11 Unilateral primary osteoarthritis, right hip M16.12 Unilateral primary osteoarthritis, left hip J44.9 Chronic obstructive pulmonary disease, unspecified R06.83 Snoring Z12.2 Encntr screen for malignant neoplasm of respiratory organs Office Visit 10/31/2017 3:00p Orthopedic Services Akosua Thomas, M25.551 Pain in right Of C.M.A. M.D. hip M25.552 Pain in left hip M16.11 Unilateral primary osteoarthritis, right hip M16.12 Unilateral primary osteoarthritis, left hip Office Visit 10/21/2017 4:00p [facility] Internal Jeni Gardner, H81.10 Benign paroxysmal Medicine - N.P. vertigo, [place] unspecified ear M25.552 Pain in left hip J44.9 Chronic obstructive pulmonary disease, unspecified H61.21 Impacted cerumen, right ear Office Visit 03/16/2017 10:30a Neurohospitalist Garrison Kuo [facility] Alba Mckeon sclerosis Z79.899 Other termite renewal inspector (current) drug therapy Office Visit 01/07/2017 11:00a [facility] Internal Shnae Andrea R60.0 Localized edema Medicine - Al[place] Office Visit 12/28/2016 1:00p [facility] Internal Jeni Gardner, M54.31 Sciatica , right Medicine - N.P. side [place] J44.9 Chronic obstructive pulmonary disease, unspecified Office Visit 08/04/2016 2:20p [facility] Internal Jeni Gardner, M79.661 Pain in right Medicine - N.P. lower leg [place] Z86.718 Personal history of other venous thrombosis and embolism Office Visit 07/22/2016 10:40a [facility] Internal Jeni Gardner, M54.2 Cervicalgia Medicine - N.P. [place] Office Visit 07/07/2016 10:30a Orthopedic Akosua Guzman, M25.552 Pain in left hip Services Of Alba Savage M16.12 Unilateral primary osteoarthritis, left hip Office Visit 06/22/2016 10:00a [facility] Internal Jeni Gardner, S39.013A Strain of Medicine - N.P. muscle, fascia [place] and tendon of pelvis, init encntr R10.32 Left lower quadrant pain Office Visit 04/16/2016 2:40p [facility] Internal Hugo Rogers, J06.9 Acute upper Medicine - BUSINESS LAW INSTRUCTOR respiratory [place] infection, unspecified J44.9 Chronic obstructive pulmonary disease, unspecified Office Visit 03/02/2016 Neurohospitalist Noemi Damico, G35 Multiple 9:30a Clinic BUSINESS LAW INSTRUCTOR sclerosis J44.9 Chronic obstructive pulmonary disease, unspecified S39.013A Strain of muscle, fascia and tendon of pelvis, init encntr Z79.899 Other half-way (current) drug therapy Office Visit 02/09/2016 11:20a [facility] Internal Jeni Gardner, Z23 Encounter for Medicine - N.P. immunization [place] S39.013A Strain of muscle, fascia and tendon of pelvis, init encntr M81.0 Age-related osteoporosis w/o current pathological fracture Office Visit 10/24/2015 1:20p [facility] Internal Jeni Gardner M81.0 Age- related Medicine - N.P. osteoporosis w/o [place] current pathological fracture Office Visit 08/12/2015 10:40a [facility] Internal Jeni Gardner, Z00.00 Encntr for general Medicine - N.P. adult medical exam [place] w/o abnormal findings Z12.31 Encntr screen mammogram for malignant neoplasm of breast J44.9 Chronic obstructive pulmonary disease, unspecified E78.0 Pure hypercholesterolemia G35 Multiple sclerosis M85.89 Oth disrd of bone density and structure, multiple sites F17.201 Nicotine dependence, unspecified, in remission F32.9 Major depressive disorder, single episode, unspecified Z23 Encounter for immunization Office Visit 04/30/2015 4:20p [facility] Internal Hugo Sue, J20.9 Acute bronchitis, Medicine - BUSINESS LAW INSTRUCTOR unspecified [place] J44.1 Chronic obstructive pulmonary disease w (acute) exacerbation Office Visit 11/26/2014 10:00a [place] Garrison Perez 340 Multiple Services Of Oj Mckeon M.D. Sclerosis 780.79 Malaise And Fatigue Other Office Visit 06/07/2014 10:00a [facility] Internal Jeni Gardner, 496 COPD Airway Medicine - N.P. Obstruction [place] Chronic Not Class Elsewhere 724.5 Backache Unspec 733.00 Osteoporosis Unspec 720.2 Sacroiliitis Not Elsewhere Classified Office Visit 06/05/2014 2:20p [facility] Internal Jeni Gardner, 724.5 Backache Unspec Medicine - N.P. [place] 720.2 Sacroiliitis Not Elsewhere Classified 728.85 Spasm Muscle Office Visit 04/10/2014 11:20a [facility] Internal Jeni Gardner, 496 COPD Airway Medicine - N.P. Obstruction Chronic [place] Not Class Elsewhere Office Visit 03/27/2014 9:00a [facility] Internal Jeni Gardner, 496 COPD Airway Medicine - N.P. Obstruction Chronic [place] Not Class Elsewhere Office Visit 03/21/2014 11:40a [facility] Internal Jeni Gardner, 496 COPD Airway Medicine - N.P. Obstruction Chronic [place] Not Class Elsewhere Office Visit 11/27/2013 9:00a [facility] Internal Jeni Gardner, 272.4 Hyperlipidemia Other Medicine - N.P. Unspec [place] 564.00 Constipation Unspecified Office Visit 10/23/2013 2:15p [facility] Garrison Perez 340 Multiple Services Of Oj Mckeon M.D. Sclerosis Office Visit 10/10/2013 2:00p [facility] [facility] Maryjo Joshi, V70.0 Examination Medicine - [place], FACP General Medical [place] Routine AT Health Care Facility V70.0 Examination General Medical Routine AT Health Care Facility V76.10 Screening For Malignant Neoplasm Breast 340 Multiple Sclerosis 496 COPD Airway Obstruction Chronic Not Class Elsewhere 530.81 Esophageal Reflux 300.00 Anxiety State Unspec 564.1 Irritable Bowel Syndrome 272.0 Hypercholesterolemia Pure 575.8 Gallbladder Disorders Other Spec Office Visit 09/04/2013 11:20a [facility] Internal Maryjo Madelyn, 496 COPD Airway Medicine - M.D., FACP Obstruction Chronic [place] Not Class Elsewhere 530.81 Esophageal Reflux 575.8 Gallbladder Disorders Other Spec Office Visit 08/16/2013 3:40p [facility] Internal Maryjo Madelyn, 496 COPD Airway Medicine - M.D., FACP Obstruction Chronic [place] Not Class Elsewhere 530.81 Esophageal Reflux Office Visit 04/19/2013 4:00p [facility] Internal Maryjolisa Joshi, 466.0 Bronchitis Acute Medicine - M.D., FACP [place] Office Visit 02/22/2013 9:00a [facility] Internal Maryjo Madelyn, 564.1 Irritable Bowel Medicine - M.D., FACP Syndrome [place] 496 COPD Airway Obstruction Chronic Not Class Elsewhere 300.00 Anxiety State Unspec 340 Multiple Sclerosis Office Visit 11/06/2012 11:20a [facility] Internal Maryjo Madelyn, 715.14 Osteoarthrosis Medicine - M.D., FACP Localized Prim Hand [place] 780.79 Malaise And Fatigue Other Office Visit 10/16/2012 11:20a [facility] Internal Maryjolisa Joshi, 780.79 Malaise And Medicine - M.D., FACP Fatigue Other [place] 785.6 Lymph Nodes Enlargement Office Visit 10/04/2012 2:45p [facility] Garrison SWendy 340 Multiple [facility] Alba Mckeon Sclerosis Office Visit 05/01/2012 9:40a [facility] Internal Jeni Gardner, 340 Multiple Medicine - N.P. Sclerosis [place] 380.4 Impacted Cerumen 466.0 Bronchitis Acute Office Visit 04/27/2012 10:40a [facility] Internal Jeni Gardner, 466.0 Bronchitis Acute Medicine - N.P. [place] 380.4 Impacted Cerumen Office Visit 03/03/2012 3:40p [facility] Internal Jeni Gardner, 466.0 Bronchitis Acute Medicine - N.P. [place] Office Visit 11/08/2011 8:40a [facility] Internal Jeni Gardner, 268.9 Vitamin D Medicine - N.P. Deficiency Unspec [place] 272.4 Hyperlipidemia Other Unspec 305.1 Tobacco Use Disorder Office Visit 09/06/2011 4:20p [facility] Internal [place] 528.6 Oral Soft Tissue Medicine - Alba Wadsworth Exlud Imelda & Deysi Tongue Leukoplakia Mucosa 923.10 Contusion Forearm Office Visit 08/10/2011 2:20p [facility] Internal Maryjolisa Joshi, V70.0 Examination Medicine - [place], FACP General [facility] Routine AT Health Care Facility V76.10 Screening For Malignant Neoplasm Breast 496 COPD Airway Obstruction Chronic Not Class Elsewhere 733.90 Bone & Cartilage Disorder Unspec 305.1 Tobacco Use Disorder 401.1 Hypertension Benign 780.52 Insomnia Unspecified v72.60 Laboratory Examination, Unspecified Office Visit 04/15/2011 DO Not Use Jeni Varn, 723.1 Cervicalgia 10:00a Oj-Deysi N.P. Office Visit 04/13/2011 DO Not Use Maryjo Madelyn, 786.59 Pain Chest Other 10:00a Gavino Willis, FACP 723.1 Cervicalgia Office Visit 03/15/2011 10:00a DO Not Use Maryjo Madelyn, 596.9 Bladder Gavino Willis, FACP Disorders Unspec 300.00 Anxiety State Unspec 305.1 Tobacco Use Disorder 733.90 Bone & Cartilage Disorder Unspec Office Visit 02/10/2011 2:20p DO Not Use Maryjo Madelyn, 496 COPD Airway Gavino Willis, FACP Obstruction Chronic Not Class Elsewhere 305.1 Tobacco Use Disorder 300.00 Anxiety State Unspec 780.79 Malaise And Fatigue Other V76.10 Screening For Malignant Neoplasm Breast Office Visit 02/03/2011 2:00p DO Not Use Maryjo Madelyn, 496 COPD Airway Gavino Willis, FACP Obstruction Chronic Not Class Elsewhere v04.81 Need For Prophylactic Vaccination & Inoculation/Influenza Office Visit 12/28/2010 10:00a DO Not Use Maryjo Madelyn, 496 COPD Airway Gavino Willis, FACP Obstruction Chronic Not Class Elsewhere 300.00 Anxiety State Unspec Office Visit 12/10/2010 3:40p DO Not Use Maryjo Madelyn, 496 COPD Airway Gavino Willis, FACP Obstruction Chronic Not Class Elsewhere Office Visit 12/03/2010 3:00p DO Not Use Maryjo Joshi, 496 COPD Airway Gavino Willis, FACP Obstruction Chronic Not Class Elsewhere Office Visit 04/23/2010 2:45p DO Not Use Maryjo Joshi, 340 Multiple Sclerosis Gavino Willis, FACP 788.43 Nocturia 309.0 Adjustment Disorder With Depression 496 COPD Airway Obstruction Chronic Not Class Elsewhere Office Visit 03/25/2010 DO Not Use [place] 786.50 Pain Chest Unspec 9:00a Gavino Wadsworth M.D. Office Visit 12/02/2009 DO Not Use Maryjo Joshi, 496 COPD Airway 10:00a Gavino Willis, FACP Obstruction Chronic Not Class Elsewhere Office Visit 10/15/2009 DO Not Use Maryjo Joshi, 491.21 Bronchitis 4:15p Gavino Willis, FACP Obstructive Chronic W/Acute Exacerbation Office Visit 09/03/2009 DO Not Use Jeni Gardner, 466.0 Bronchitis Acute 3:45p Oj-[place] N.P. Office Visit 04/24/2009 DO Not Use Maryjo Joshi, 496 COPD Airway 2:00p Gavino Willis, FACP Obstruction Chronic Not Class Elsewhere 340 Multiple Sclerosis V04.81 Need For Prophylactic Vaccination & Inoculation/Influenza Office Visit 04/04/2009 4:30p DO Not Use Marcela, 708.9 Urticaria Gavino Mckinney M.D. Unspec 496 COPD Airway Obstruction Chronic Not Class Elsewhere 340 Multiple Sclerosis Office Visit 03/19/2009 DO Not Use Jeni Gardner, 461.9 Sinusitis Acute 2:30p Oj-[place] N.P. 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 Radial Styloid 719.41 Pain Joint Shoulder Region Office Visit 06/19/2008 DO Not Use Jeni Varn, 466.0 Bronchitis Acute 4:00p Barrel Brander-[place] N.P. Office Visit 04/26/2008 DO Not Use Maryjolisa Joshi, 496 COPD Airway 3:45p Gavino Rodriguez.Viri, FACP Obstruction Chronic Not Class Elsewhere 466.0 Bronchitis Acute Office Visit 04/15/2008 DO Not Use Jeni Varn, 611.72 Lump Or Mass 3:30p Barrel Brander-[place] N.P. 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 Infection Site Not Spec Office Visit 03/28/2007 Neurosurgery Celestino Mercado 724.2 Lumbago 3:30p Services Of Oj Allen M.D. Office Visit 02/07/2007 DO Not Use Jeni Gardner, 564.00 Constipation 11:45a Oj-[place] N.P. Unspecified 465.9 URI Upper Respiratory Infections Acute Unspec Sites 708.9 Urticaria Unspec Office Visit 01/24/2007 3:30p Neurosurgery Celestino Mercado Services Of Oj Allen M.D. Office Visit 12/29/2006 2:30p DO Not Use Maryjo Madelyn, 780.79 Malaise And Gavino Willis, FACP Fatigue Other 340 Multiple Sclerosis 709.9 Skin & Subcutaneous Tissue Disorders Unspec 724.02 Spinal Stenosis, Lumbar Region, W/O Neurogenic Claudication Office Visit 12/08/2006 10:30a Neurosurgery Celestino Mercado Services Of Oj Allen M.D. Office Visit 09/20/2006 12:00p DO Not Use Maryjo Madelyn, 780.79 Malaise And Gavino Willis, FACP Fatigue Other Office Visit 09/09/2006 11:00a DO Not Use Maryjo Madelyn, 340 Multiple Gavino Willis, FACP Sclerosis 780.79 Malaise And Fatigue Other 733.90 Bone & Cartilage Disorder Unspec Office Visit 08/04/2006 11:45a DO Not Use Maryjo Madelyn, 340 Multiple Gavino Willis, FACP Sclerosis 733.00 Osteoporosis Unspec Office Visit 07/21/2006 3:00p DO Not Use Maryjo Madelyn, 340 Multiple Gavino Willis, FACP Sclerosis 724.2 Lumbago Office Visit 07/08/2006 Chung Mercado 722.10 Intervertebral Disc 11:00a Progressive Alba Allen Displacement Lumbar Neurosurgery W/O Myelopathy Office Visit 07/04/2006 DO Not Use Jeni 720.2 Sacroiliitis Not 4:00p Gavino Gardner, N.P. Elsewhere Classified 719.45 Pain Joint Pelvic Region & Thigh 340 Multiple Sclerosis 564.00 Constipation Unspecified Office Visit 06/23/2006 2:30p DO Not Use Maryjo Madelyn, V70.0 Examination Gavino Willis, FACP General Medical Routine AT Health Care Facility 340 Multiple Sclerosis V06.1 Mwlgohyatj-Dbrexlt-Lsudkral Combined (DTaP) Office Visit 12/30/2005 11:15a DO Not Use Maryjo Madelyn, 610.0 Cyst Breast Gavino Willis, FACP Solitary 340 Multiple Sclerosis 272.4 Hyperlipidemia Other Unspec Plan of Treatment Future Appointment(s):12/11/2018 11:30 am - Laquita Lowe MD at [facility]07/14/2018 11:30 am - Laquita Lowe MD at [facility]06/28/2018 1:00 pm - Jeni Gardner N.P. at [facility] Internal Medicine [facility]06/19/2018 - Garrison Mckeon M.D.R06.02 Shortness of ciltvmI21 Multiple sclerosisFollow up:1 [id number] Other half-way (current) drug therapy
[2018-06-25 21:40] VITALS: BP 170/83
[2018-06-25] MEDS ORDERED: methylPREDNISolone 125 MG* 2 ML VIAL IV ONE (21:47)
--- NOTE | 2018-06-25 21:55 | UC ---
Shortness of Breath HPI - HPI Summary HPI Summary: PATIENT WITH A HISTORY OF COPD AND ASTHMA ALONG WITH MULTIPLE SCLEROSIS COMES IN WITH SEVERAL DAYS OF WORSENING COUGH, SHORTNESS OF BREATH AND WHEEZE. TODAY SHE IS BECOMING WINDED WITH EVEN THE SLIGHTEST EXERTION AND IS HAVING A HARD TIME SPEAKING DUE TO SHORTNESS OF BREATH. HAS A COMBIVENT INHALER AT HOME BUT FEELS SHE IS UNABLE TO BREATHE IN EFFECTIVELY ENOUGH TO TAKE THE MEDICATION. NO FEVER, NO CHEST PAIN. NO NAUSEA/VOMITING. O2 SAT HERE 93% WHICH IS ABOUT BASELINE FOR HER. - History of Current Complaint Chief Complaint: UCRespiratory Stated Complaint: SOB Time Seen by Provider: 06/25/18 21:24 Hx Obtained From: Patient, Family/Supplier Quality Engineering Manager - DAUGHTER - MONICA Jensen Last Menstrual Period: POST Onset/Duration: Gradual Onset, Lasting Days, Still Present Timing: Constant Current Severity: Moderate Dyspnea At: Rest Aggrevating Factors: Movement, Deep Breaths Alleviating Factors: Nothing Associated Signs & Symptoms: Positive: Cough (Nonproductive), Wheezing, Nasal Congestion. Negative: Chest Pain w/Cough, Fever - Allergy/Home Medications Allergies/Adverse Reactions: Allergies Allergy/AdvReac Type Severity Reaction Status Date / Time amoxicillin [From Augmentin] Allergy Intermediate Hives Verified 06/25/18 21:29 clavulanic acid Allergy Intermediate Hives Verified 06/25/18 21:29 [From Augmentin] Sulfa (Sulfonamide Allergy Intermediate Hives Verified 06/25/18 21:29 Antibiotics) PMH/Surg Hx/FS Hx/Imm Hx - Additional Past Medical History Additional PMH: MULTIPLE SCLEROSIS Respiratory History: COPD, Asthma Other History Of: Anticoagulant Therapy - 81 mg aspirin, but she does not know why she is on this medication. Negative For: HIV, Hepatitis B, Hepatitis C - Surgical History Surgical History: Yes Surgery Procedure, Year, and Place: TONSILECTOMY; APPENDECTOMY; PARTIAL HYSTERECTOMY; EXPLORATORY THYROID; DISCECTOMY LOW BACK-2006; BREAST BIOPSY CLIP -Rt, LEFT HIP REPLACMENT 12/2017 - Family History Known Family History: Positive: Cardiac Disease, Diabetes Negative: Hypertension - Social History Alcohol Use: None Substance Use Type: None Smoking Status (MU): Former Smoker Type: Cigarettes, eCigarettes Amount Used/How Often: 1/2-pack per day for 40 years Length of Time of Smoking/Using Tobacco: 40 years Have You Smoked in the Last Year: Yes When Did the Patient Quit Smoking/Using Tobacco: 2011 - Immunization History Most Recent Influenza Vaccination: fall 2015 Most Recent Pneumonia Vaccination: 2015 Review of Systems All Other Systems Reviewed And Are Negative: Yes Constitutional: Positive: Fatigue Respiratory: Positive: Shortness Of Breath, Cough, Other - WHEEZE Cardiovascular: Positive: Negative Gastrointestinal: Positive: Negative Neurological: Positive: Weakness Physical Exam Triage Information Reviewed: Yes Appearance: No Pain Distress, Ill-Appearing - WORKING TO BREATHE, PURSING LIPS, Thin Vital Signs: Initial Vital Signs Temp 97.8 F 06/25/18 21:33 Pulse 97 06/25/18 21:33 Resp 22 06/25/18 21:33 BP 170/83 06/25/18 21:33 Pulse Ox 93 06/25/18 21:33 Vital Signs Reviewed: Yes Eyes: Positive: Conjunctiva Clear ENT: Positive: Hearing grossly normal Neck: Positive: Supple Respiratory: Positive: Respiratory distress - BREATHIING THROUGH PURSE LIPS, UNABLE TO SPEAK IN FULL SENTENCES WITHOUT BECOMING WINDED, Decreased breath sounds, Wheezing Cardiovascular: Positive: Pulses Normal, Other: - IRREGULAR - ECTOPIC BEATS Abdomen Description: Positive: Soft Musculoskeletal: Positive: No Edema Neurological: Positive: Alert Psychological: Positive: Age Appropriate Behavior Skin: Negative: Rashes Diagnostics - EKG Cardiac Rate: NL - 93BPM Cardiac Rhythm: Sinus: Normal Ectopy: PACs ST Segment: Normal Shortness of Breath Dx - Course Course Of Treatment: TO [facility] ER BY AMBULANCE - Differential Dx/Diagnosis Provider Diagnosis: SOB (shortness of breath) - Physician Notification/Consults Discussed Patient Care With: ROCK CRUZ - TO [facility] ED BY AMBULANCE Time Discussed With Above Provider: 22:05 Instructed by Provider To: MD Will See In ED Discharge - Sign-Out/Discharge Documenting (check all that apply): Patient Departure All imaging exams completed and their final reports reviewed: No Studies - Discharge Plan Condition: Guarded Disposition: TRANS HIGHER LVL OF CARE FAC Referrals: Jeni Gardner NP [Primary Care Provider] - - Billing Disposition and Condition Condition: GUARDED Disposition: Trans Higher Lvl of Care Fac
== END 2018-06-25 22:15 | disposition short-term general hospital (02) ==
LOC: UCEAST 21:23
DX: R06.02 Shortness of breath (principal); J44.9 Chronic obstructive pulmonary disease, unspecified; G35 Multiple sclerosis; Z88.0 Allergy status to penicillin; Z87.891 Personal history of nicotine dependence; Z88.2 Allergy status to sulfonamides; Z88.8 Allergy status to other drugs, medicaments and biological substances
CPT/HCPCS: 96365; 99213; G0463; J2930

== ENCOUNTER 2018-06-25 22:34 | Inpatient (IN) | payer MEDICARE, OTHER ==
[2018-06-25] MEDS ORDERED: methylPREDNISolone 125 MG* 2 ML VIAL IV ONE (22:54)
[2018-06-25] MEDS ORDERED: Albuterol/Ipratropium NEB.SOL* Albuterol 2.5 MG/Ipratropium 0.5 MG 3 ML INH ONE (22:54)
[2018-06-25] MEDS ORDERED: Magnesium Sulfate 2 GM IV* 2 GM/50 ML BAG IVPB ONE (22:54)
[2018-06-25] MEDS ORDERED: Levofloxacin 750 MG IVPREMIX(* 750 MG/150 ML BAG IVPB ONE (22:55)
[2018-06-25] MEDS ORDERED: Albuterol 2.5 MG/3 ML NEB.SOL* (0.083%) INH ONE (23:16)
[2018-06-25] MEDS: Albuterol 2.5 MG/3 ML NEB.SOL* (0.083%) INH SCH ×2 (23:21→23:30)
[2018-06-25 23:22] LABS: ABS Basophils 0.1 10^3/ul (0-0.2); ABS Eosinophils 0.3 10^3/ul (0-0.6); ABS Lymphocytes 1.4 10^3/ul (1.0-4.8); ABS Monocytes 0.5 10^3/ul (0-0.8); ABS Neutrophils 5.4 10^3/ul (1.5-7.7); ABS Nucleated RBC 0 10^3/ul; Eosinophil % 3.5 %; Hematocrit 47 % (35-47); Lymphocyte % 18.1 %; Mean Corpuscular HGB Conc 34 g/dl (31-36); Mean Corpuscular Hemoglobin 31 pg (27-31); Mean Corpuscular Volume 93 fL (80-97); Mean Platelet Volume 7.3 fL (7.4-10.4); Nucleated Red Blood Cells % 0; Platelet Count 299 10^3/ul (150-450); Red Blood Count 5.08 10^6/ul (4.00-5.40); Red Cell Distribution Width 15 % (10.5-15); White Blood Count 7.5 10^3/ul (3.5-10.8)
[2018-06-25 23:32] LABS: Activated Partial Thrombo Time 27.9 seconds (26.0-36.3); INR 0.86 (0.77-1.02)
[2018-06-25 23:40] LABS: ALT 13 U/L (7-52); AST 17 U/L (13-39); Albumin 4.4 g/dL (3.2-5.2); Albumin/Globulin Ratio 1.7 (1-3); Alkaline Phosphatase 90 U/L (34-104); Anion Gap 6 mmol/L (2-11); BUN/Creatinine Ratio 17.9 (8-20); Blood Urea Nitrogen 12 mg/dL (6-24); C Reactive Protein < 1.00 mg/L (<8.01); CO2 Carbon Dioxide 31 mmol/L (22-32); Calcium 9.7 mg/dL (8.6-10.3); Chloride 102 mmol/L (101-111); EGFR Non-African American 86.8 (>60); Globulin 2.6 g/dL (2-4); Glucose 132 mg/dL (70-100); Potassium 4.2 mmol/L (3.5-5.0); Sodium 139 mmol/L (135-145)
--- NOTE | 2018-06-25 23:52 | ED ---
Shortness of Breath - HPI Summary HPI Summary: This patient is a 72 year old F brought in by ambulance to [facility] with a chief complaint of SOB since 1 day ago. The patient rates the pain 0/10 in severity. Symptoms aggravated by nothing. Symptoms alleviated by nothing. Patient denies fever and pain. Patient notes she does not used oxygen at home but she used nebulizer once today. Pt has hx of COPD. - History of Current Complaint Hx Obtained From: Patient Onset/Duration: Gradual Onset, Lasting Days - 1 day, Still Present Current Severity: Mild Aggrevating Factors: Nothing Alleviating Factors: Nothing - Allergy/Home Medications Allergies/Adverse Reactions: Allergies Allergy/AdvReac Type Severity Reaction Status Date / Time amoxicillin [From Augmentin] Allergy Intermediate Hives Verified 06/25/18 21:29 clavulanic acid Allergy Intermediate Hives Verified 06/25/18 21:29 [From Augmentin] Sulfa (Sulfonamide Allergy Intermediate Hives Verified 06/25/18 21:29 Antibiotics) PMH/Surg Hx/FS Hx/Imm Hx Endocrine/Hematology History: Reports: Hx Anticoagulant Therapy - 81 mg aspirin , but she does not know why she is on this medication., Hx Thyroid Disease - hypothyroidism, Hx Anemia Denies: Hx Diabetes Cardiovascular History: Reports: Hx Deep Vein Thrombosis - hx 9 years ago (DVT bilateral lower legs)., Hx Hypercholesterolemia Denies: Hx Congestive Heart Failure, Hx Hypertension, Hx Myocardial Infarction, Hx Pacemaker/ICD, Other Cardiovascular Problems/Disorders Respiratory History: Reports: Hx Asthma, Hx Chronic Obstructive Pulmonary Disease (COPD), Hx Lung Cancer Denies: Hx Pneumonia, Hx Pulmonary Embolism, Hx Sleep Apnea - IN process of sleep studies Comment Only: Other Respiratory Problems/Disorders - HX PNEMONIA 2011 GI History: Reports: Other GI Disorders - bloating, occassional diarrhea Denies: Hx Gall Bladder Disease, Hx Gastrointestinal Bleed, Hx Ulcer, Hx Urosepsis History: Reports: Other Problems/Disorders - dribling incontinence @ [facility] Denies: Hx Dialysis, Hx Kidney Stones, Hx Renal Disease Musculoskeletal History: Reports: Hx Arthritis - Bilateral hips and hands, Hx Osteoporosis Denies: Other Musculoskeletal History Sensory History: Reports: Hx Contacts or Glasses - bi-focal Denies: Hx Hearing Aid Opthamlomology History: Reports: Hx Contacts or Glasses - bi-focal Neurological History: Reports: Hx Nerve Disease - Multiple Sclerosis, Other Neuro Impairments/Disorders - MS Denies: Hx Dementia, Hx Migraine, Hx Seizures, Hx Transient Ischemic Attacks (TIA) Psychiatric History: Reports: Hx Depression Denies: Hx Anxiety, Hx Panic Disorder, Hx Schizophrenia, Hx Bipolar Disorder , Other Psychiatric Issues/Disorders - Cancer History Hx Chemotherapy: No Hx Radiation Therapy: No - Surgical History Surgery Procedure, Year, and Place: TONSILECTOMY; APPENDECTOMY; PARTIAL HYSTERECTOMY; EXPLORATORY THYROID; DISCECTOMY LOW BACK-2006; BREAST BIOPSY CLIP -Rt, LEFT HIP REPLACMENT 12/2017 Hx Anesthesia Reactions: Yes - 1964- had a hard time waking her up from anesthesia - Immunization History Date of Influenza Vaccine: UTD Infectious Disease History: No Infectious Disease History: Denies: Hx Clostridium Difficile, Hx Hepatitis, Hx Human Immunodeficiency Virus (HIV), Hx of Known/Suspected MRSA, Hx Shingles, Hx Tuberculosis, Hx Known/ Suspected VRE, History Other Infectious Disease, Traveled Outside the [place] in Last 30 Days - Family History Known Family History: Positive: Cardiac Disease, Diabetes Negative: Hypertension - Social History Alcohol Use: Rare Substance Use Type: Reports: None Hx Tobacco Use: No Smoking Status (MU): Former Smoker Type: Cigarettes, eCigarettes Amount Used/How Often: 1/2-pack per day for 40 years Length of Time of Smoking/Using Tobacco: 40 years Have You Smoked in the Last Year: Yes Review of Systems Negative: Fever Negative: Epistaxis Negative: Chest Pain Positive: Shortness Of Breath Negative: Abdominal Pain All Other Systems Reviewed And Are Negative: Yes Physical Exam - Summary Physical Exam Summary: VITAL SIGNS: Reviewed. GENERAL: Patient is a well-developed and nourished FEMALE who is lying comfortable in the stretcher. Patient is not in any acute respiratory distress. HEAD AND FACE: No signs of trauma. No ecchymosis, hematomas or skull depressions. No sinus tenderness. EYES: PERRLA, EOMI x 2, No injected conjunctiva, no nystagmus. EARS: Hearing grossly intact. Ear canals and tympanic membranes are within normal limits. MOUTH: Oropharynx within normal limits. NECK: Supple, trachea is midline, no adenopathy, no JVD, no carotid bruit, no c- spine tenderness, neck with full ROM. CHEST: Symmetric, no tenderness at palpation LUNGS: Decreased breath sounds bilaterally. Bilateral expiratory wheezes. No crackles. CVS: Regular rate and rhythm, S1 and S2 present, no murmurs or gallops appreciated. ABDOMEN: Soft, non-tender. No signs of distention. No rebound no guarding, and no masses palpated. Bowel sounds are normal. EXTREMITIES: FROM in all major joints, no edema, no cyanosis or clubbing. NEURO: Alert and oriented x 3. No acute neurological deficits. Speech is normal and follows commands. SKIN: Dry and warm Triage Information Reviewed: Yes Vital Signs On Initial Exam: Initial Vitals Temp Pulse Resp BP Pulse Ox 98 F 96 25 147/107 94 06/25/18 22:45 06/25/18 22:45 06/25/18 22:45 06/25/18 22:45 06/25/18 22:45 Vital Signs Reviewed: Yes Diagnostics - Vital Signs Vital Signs Temp Pulse Resp BP Pulse Ox 06/25/18 23:50 107 24 141/88 94 06/25/18 23:31 100 18 98 06/25/18 23:25 102 20 97 06/25/18 23:14 96 20 97 06/25/18 22:45 98 F 96 25 147/107 94 - Laboratory Lab Results: Lab Results 06/25/18 06/25/18 06/25/18 Range/Units 23:13 23:13 23:13 WBC 7.5 (3.5-10.8) 10^3/ul RBC 5.08 (4.00-5.40) 10^6/ul Hgb 16.0 (12.0-16.0) g/dl Hct 47 (35-47) % MCV 93 (80-97) fL MCH 31 (27-31) pg MCHC 34 (31-36) g/dl RDW 15 (10.5-15) % Plt Count 299 (150-450) 10^3/ul MPV 7.3 L (7.4-10.4) fL Neut % (Auto) 71.4 % Lymph % (Auto) 18.1 % Wythe % (Auto) 6.2 % Eos % (Auto) 3.5 % Baso % (Auto) 0.8 % Absolute Neuts (auto) 5.4 (1.5-7.7) 10^3/ul Absolute Lymphs (auto) 1.4 (1.0-4.8) 10^3/ul Absolute Monos (auto) 0.5 (0-0.8) 10^3/ul Absolute Eos (auto) 0.3 (0-0.6) 10^3/ul Absolute Basos (auto) 0.1 (0-0.2) 10^3/ul Absolute Nucleated RBC 0 10^3/ul Nucleated RBC % 0 INR (Anticoag Therapy) (0.77-1.02) APTT (26.0-36.3) seconds Sodium 139 (135-145) mmol/L Potassium 4.2 (3.5-5.0) mmol/L Chloride 102 (101-111) mmol/L Carbon Dioxide 31 (22-32) mmol/L Anion Gap 6 (2-11) mmol/L BUN 12 (6-24) mg/dL Creatinine 0.67 (0.51-0.95) mg/dL Est GFR ( Amer) 105.0 (>60) Est GFR (Non-Af Amer) 86.8 (>60) BUN/Creatinine Ratio 17.9 (8-20) Glucose 132 H (70-100) mg/dL Lactic Acid 1.6 (0.5-2.0) mmol/L Calcium 9.7 (8.6-10.3) mg/dL Total Bilirubin 0.30 (0.2-1.0) mg/dL AST 17 (13-39) U/L ALT 13 (7-52) U/L Alkaline Phosphatase 90 (34-104) U/L Troponin I 0.00 (<0.04) ng/mL C-Reactive Protein < 1.00 (<8.01) mg/L B-Natriuretic Peptide (<=100) pg/mL Total Protein 7.0 (6.4-8.9) g/dL Albumin 4.4 (3.2-5.2) g/dL Globulin 2.6 (2-4) g/dL Albumin/Globulin Ratio 1.7 (1-3) 06/25/18 06/25/18 Range/Units 23:13 23:13 WBC (3.5-10.8) 10^3/ul RBC (4.00-5.40) 10^6/ul Hgb (12.0-16.0) g/dl Hct (35-47) % MCV (80-97) fL MCH (27-31) pg MCHC (31-36) g/dl RDW (10.5-15) % Plt Count (150-450) 10^3/ul MPV (7.4-10.4) fL Neut % (Auto) % Lymph % (Auto) % Wythe % (Auto) % Eos % (Auto) % Baso % (Auto) % Absolute Neuts (auto) (1.5-7.7) 10^3/ul Absolute Lymphs (auto) (1.0-4.8) 10^3/ul Absolute Monos (auto) (0-0.8) 10^3/ul Absolute Eos (auto) (0-0.6) 10^3/ul Absolute Basos (auto) (0-0.2) 10^3/ul Absolute Nucleated RBC 10^3/ul Nucleated RBC % INR (Anticoag Therapy) 0.86 (0.77-1.02) APTT 27.9 (26.0-36.3) seconds Sodium (135-145) mmol/L Potassium (3.5-5.0) mmol/L Chloride (101-111) mmol/L Carbon Dioxide (22-32) mmol/L Anion Gap (2-11) mmol/L BUN (6-24) mg/dL Creatinine (0.51-0.95) mg/dL Est GFR ( Amer) (>60) Est GFR (Non-Af Amer) (>60) BUN/Creatinine Ratio (8-20) Glucose (70-100) mg/dL Lactic Acid (0.5-2.0) mmol/L Calcium (8.6-10.3) mg/dL Total Bilirubin (0.2-1.0) mg/dL AST (13-39) U/L ALT (7-52) U/L Alkaline Phosphatase (34-104) U/L Troponin I (<0.04) ng/mL C-Reactive Protein (<8.01) mg/L B-Natriuretic Peptide 15 (<=100) pg/mL Total Protein (6.4-8.9) g/dL Albumin (3.2-5.2) g/dL Globulin (2-4) g/dL Albumin/Globulin Ratio (1-3) Result Diagrams: 06/25/18 23:13 06/25/18 23:13 Lab Statement: Any lab studies that have been ordered have been reviewed, and results considered in the medical decision making process. - Radiology CXR Radiology Interpretation Completed By: ED Physician - Dr. Dorman, pending official report Summary of Radiographic Findings: hyperinflation. No acute infiltrate. COPD. - EKG 23:35 Cardiac Rate: Tachycardia - at 104 bpm EKG Rhythm: Sinus Tachycardia ST Segment: Normal Ectopy: None Summary of EKG Findings: sinus tachycardia at 104 bpm with nml axis, nml intervals, and no ischemic changes. Course/Dx - Course Course Of Treatment: This patient is a 72 year old F brought in by ambulance to [facility] with a chief complaint of SOB since 1 day ago. The patient rates the pain 0/10 in severity. Symptoms aggravated by nothing. Symptoms alleviated by nothing. Patient denies fever and pain. Patient notes she does not used oxygen at home but she used nebulizer once today. Pt has hx of COPD. An EKG reveals sinus tachycardia at 104 bpm with nml axis, nml intervals, and no ischemic changes. CXR reveals, per ED physician, hyperinflation, no acute infiltrate, COPD. Test results with no significant abnormalities. In the ED course the patient was given Ventolin, Solu-Medrol, magnesium sulfate, Levaquin, and Albuterol duoneb. We discussed patient care with Dr. Robertson, hospitalist, and they agreed to admit the patient to [facility]. Patient will be admitted to [facility]. The patient is agreeable with this plan. - Diagnoses Provider Diagnoses: COPD (chronic obstructive pulmonary disease) - Physician Notifications Discussed Care of Patient With: Lisbet Robertson Time Discussed With Above Provider: 00:35 Discharge - Sign-Out/Discharge Documenting (check all that apply): Patient Departure - admit to [facility] Patient Received Moderate/Deep Sedation with Procedure: No - Discharge Plan Condition: Stable Disposition: ADMITTED TO [facility] Referrals: Jeni Gardner NP [Primary Care Provider] - - Attestation Statements Document Initiated by Scribe: Yes Documenting Scribe: Fatuma Go Provider For Whom Scribe is Documenting (Include Credential): Ron Dorman MD Scribe Attestation: Fatuma Zamarripa, lurdesibed for Ron Dorman MD on 06/26/18 at 0034. Status of Scribe Document: Ready
[2018-06-26] MEDS ORDERED: Carisoprodol TAB* 350 MG PO PRN (01:00)
[2018-06-26] MEDS ORDERED: Baclofen TAB* 10 MG PO PRN (01:00)
[2018-06-26] MEDS: Albuterol 2.5 MG/3 ML NEB.SOL* (0.083%) INH SCH (01:38)
[2018-06-26] MEDS: Azithromycin IV(*) 500 MG in NS 0.9% 250 ML* 250 ML IVPB SCH (02:25)
[2018-06-26] MEDS: Enoxaparin(*) 40 MG/0.4 ML SYR SUBCUT SCH (02:25)
[2018-06-26 02:45] LABS: Influenza A Molecular NEGATIVE (Negative); Influenza B Molecular NEGATIVE (Negative)
[2018-06-26] MEDS ORDERED: Albuterol/Ipratropium NEB.SOL* Albuterol 2.5 MG/Ipratropium 0.5 MG 3 ML INH SCH (03:00)
--- NOTE | 2018-06-26 04:47 | HP ---
CC: Jeni Gardner NP; Dr. Laquita Lowe HISTORY AND PHYSICAL: DATE OF ADMISSION: 06/26/18 PRIMARY CARE PROVIDER: Jeni Gardner NP PRIMARY DRAFTER (CAD) ELECTRICAL: Laquita Lowe MD CHIEF COMPLAINT: Shortness of breath. HISTORY OF PRESENT ILLNESS: This is a 72-year-old female with past medical history of COPD, multiple sclerosis, DVT, who now presents to the emergency room with complaint of shortness of breath. The patient reports that her symptoms are ongoing for the past 2 to 3 days, gradually worsening. She reports that she is having cough of white to yellow colored sputum production, having wheezing along with shortness of breath. She tried to use her Combivent and her other nebulizing treatment; however, they were not helping, so she decided to come to the emergency room for further evaluation and care. She does not report any chest pain. No fevers, no chills, no recent sick contacts. PAST MEDICAL HISTORY: 1. COPD. 2. Multiple sclerosis. 3. Osteoporosis. 4. DVT when she had surgery, remote history, not on anticoagulation currently. PAST SURGICAL HISTORY: 1. Hip replacement. 2. Tonsillectomy. 3. Appendectomy. 4. Partial hysterectomy. 5. Back surgery. HOME MEDICATIONS: 1. Soma 350 mg at bedtime as needed. 2. Prolia 60 mg injection every 6 months. 3. Lyrica 100 mg twice a day. 4. Combivent 2 puffs 4 times a day. 5. Albuterol, Ventolin inhaler 1 to 2 puffs every 4 hours as needed for shortness of breath. 6. Ventolin nebulizer 1 vial inhaled up to 3 times a day as needed. 7. Baclofen 5 mg twice a day as needed. 8. Lipitor 20 mg at 5 o'clock in the evening. 9. Aspirin 81 mg in the morning. 10. Vitamin C 500 mg daily. 11. Venlafaxine extended release 150 mg daily. 12. Ipratropium solution 0.5 mg inhaled b.i.d. 13. Copaxone (glatiramer) 40 mg subcutaneous Tuesday, Tuesday, and Tuesday. ALLERGIES: She is allergic to AUGMENTIN and SULFA. SOCIAL HISTORY: The patient lives at home with her family. Does not smoke. No alcohol use. FAMILY HISTORY: Mother: Enlarged heart. Father: Emphysema. REVIEW OF SYSTEMS: No fevers, no chills, no change in her vision or hearing, no sinus congestion, no chest pain, no palpitations. No abdominal pain, no nausea, no vomiting, no diarrhea, no joint aches. She gets chronic muscle cramps due to her multiple sclerosis with no recent changes. No skin lesions. No urinary discomfort. No increase in urinary frequency, no hesitancy, no changes in her mood, no thoughts of hurting herself or anyone else. PHYSICAL EXAMINATION GENERAL: This is a well-developed, well-nourished, elderly female, thin, lying in an ER stretcher. The patient is having mild respiratory distress. VITAL SIGNS: Blood pressure is 130/68, pulse ox of 93% on 3 L nasal cannula, heart rate of 106, respiratory rate of 20, temperature of 98 Fahrenheit. HEENT: Pupils are equal, round, and reactive to light. Atraumatic, normocephalic. There is no oropharyngeal erythema. LUNGS: There is mild respiratory distress. The patient is tachypneic with no use of accessory muscles. Currently, on supplemental oxygenation at 3 L. There is moderate wheezing heard throughout all lung gonzalez. HEART: There is no chest wall tenderness, regular tachycardia, no murmurs, rubs , or gallops. ABDOMEN: Bowel sounds are normoactive in all 4 quadrants. Abdomen is soft, nontender, nondistended. EXTREMITIES: Dorsalis pedis is 2+ bilaterally. There are no rashes or lesions. No lower extremity edema. No calf tenderness. NEUROLOGICAL: Alert, oriented x3 with no focal neurological deficits. SKIN: There are no rashes or lesions. LABORATORY AND DIAGNOSTIC DATA: The patient had a chest x-ray done, which shows no acute infiltrates, as reviewed by me, official read is pending. The patient also had an EKG done, which shows sinus tachycardia. White blood cell count of 7.5, hemoglobin of 16, hematocrit of 47, platelets of 299. INR of 0.86. Sodium of 139, potassium of 4.2, glucose of 132. Lactic acid of 1.6. BNP of 17. CRP less than 1.00. Troponin of 0.0. BUN of 12, creatinine of 0.67. IMPRESSION AND PLAN: 1. Acute chronic obstructive pulmonary disease exacerbation. We will treat this patient with prednisone 40 mg twice a day, start DuoNebs every 4 hours, supplemental oxygenation to keep oxygen greater than 90%. Azithromycin. Check Influenza. 2. History of multiple sclerosis. Continue home medications including glatiramer subcutaneous on Tuesday, Tuesday and Tuesday, baclofen and Soma as needed. 3. History of osteoporosis. The patient takes Prolia injection every 6 months. 4. History of deep venous thrombosis. 5. We will treat the patient with DVT prophylaxis with 40 mg subcu Lovenox. 6. Regular diet. 7. Activity as tolerated. 8. History of hyperlipidemia. Continue Lipitor. 9. Continue other home medications. [id number]/CPS #: [id number] [facility]
[2018-06-26] MEDS: Albuterol/Ipratropium NEB.SOL* Albuterol 2.5 MG/Ipratropium 0.5 MG 3 ML INH SCH ×3 (07:33→19:31)
[2018-06-26] MEDS: Ascorbic Acid TAB* 500 MG PO SCH (09:45)
[2018-06-26] MEDS: guaiFENesin ER TAB 600 MG PO SCH ×2 (09:45→20:33)
[2018-06-26] MEDS: Aspirin EC TAB* 81 MG TAB.EC PO SCH (09:45)
[2018-06-26] MEDS: Pregabalin CAP(*) 100 MG PO SCH ×2 (09:46→20:33)
[2018-06-26] MEDS: predniSONE TAB* 20 MG PO SCH ×2 (09:46→20:33)
[2018-06-26] MEDS: GLATIRAMER ACETATE 40 MG/ML SUBCUT SCH (09:47)
[2018-06-26] MEDS: Venlafaxine EXT RELEASE CAP* 75 MG PO SCH (09:50)
--- NOTE | 2018-06-26 16:33 | PN ---
Hospitalist Progress Note Date of Service: 06/26/18 HOSPITALIST ADDENDUM Case reviewed and d/w Charmaine Mi RN. Mrs Cleary is a 72yo F with PMH of COPD, MS, remote h/o DVT, former smoker, who presented to ED with c/o shortness of breath found to have COPD exacerbation secondary to bronchitis. Continue antibiotics, steroids, and bronchodilators.
[2018-06-26] MEDS: cefTRIAXone(*) 1 GM in NS 0.9% 50 ML* 50 ML IVPB SCH (17:58)
[2018-06-26] MEDS: Atorvastatin* 20 MG TAB PO SCH (18:10)
[2018-06-26] MEDS: GuaiFENesin DM* 5 ML UDC PO PRN (21:21)
[2018-06-27] MEDS: Albuterol/Ipratropium NEB.SOL* Albuterol 2.5 MG/Ipratropium 0.5 MG 3 ML INH SCH ×4 (01:32→19:46)
[2018-06-27] MEDS: Azithromycin IV(*) 500 MG in NS 0.9% 250 ML* 250 ML IVPB SCH (01:35)
[2018-06-27] MEDS: Enoxaparin(*) 40 MG/0.4 ML SYR SUBCUT SCH (01:35)
[2018-06-27] MEDS: GuaiFENesin DM* 5 ML UDC PO PRN ×2 (01:44→10:03)
[2018-06-27] MEDS: predniSONE TAB* 20 MG PO SCH (09:58)
[2018-06-27] MEDS: Aspirin EC TAB* 81 MG TAB.EC PO SCH (09:59)
[2018-06-27] MEDS: Pregabalin CAP(*) 100 MG PO SCH ×2 (09:59→20:06)
[2018-06-27] MEDS: guaiFENesin ER TAB 600 MG PO SCH (09:59)
[2018-06-27] MEDS: Ascorbic Acid TAB* 500 MG PO SCH (09:59)
[2018-06-27] MEDS: Venlafaxine EXT RELEASE CAP* 75 MG PO SCH (10:00)
[2018-06-27] MEDS: Benzonatate CAP* 100 MG PO SCH ×3 (13:17→20:06)
[2018-06-27] MEDS: Atorvastatin* 20 MG TAB PO SCH (16:45)
[2018-06-27] MEDS: cefTRIAXone(*) 1 GM in NS 0.9% 50 ML* 50 ML IVPB SCH (16:45)
--- NOTE | 2018-06-27 18:54 | PN ---
Subjective Date of Service: 06/27/18 Interval History: HOSPITALIST PROGRESS NOTE Patient seen and examined at bedside. Care reviewed and d/w Charmaine Mi RN. She feels a little better today, but still dyspneic with minimal exertion. Dry cough persists. Family History: Unchanged from Admission Social History: Unchanged from Admission Past Medical History: Unchanged from Admission Objective Active Medications: Albuterol/Ipratropium (Duoneb (Albuterol 2.5 Mg/Ipratropium 0.5 Mg)) 1 neb INH [id number] [facility] Last Admin: 06/27/18 12:42 Dose: 1 neb Ascorbic Acid (Vitamin C Tab*) 500 mg PO QAM [facility] Last Admin: 06/27/18 09:59 Dose: 500 mg Aspirin (Aspirin Ec Tab*) 81 mg PO QAM [facility] Last Admin: 06/27/18 09:59 Dose: 81 mg Atorvastatin Calcium (Lipitor*) 20 mg PO 1700 [facility] Last Admin: 06/27/18 16:45 Dose: 20 mg Baclofen (Lioresal Tab*) 5 mg PO BID PRN PRN Reason: SPASMS Benzonatate (Tessalon Cap*) 100 mg PO TID [facility] Last Admin: 06/27/18 13:17 Dose: 100 mg Carisoprodol (Soma Tab*) 350 mg PO BEDTIME PRN PRN Reason: muscle cramp Last Admin: 06/26/18 03:47 Dose: 350 mg Enoxaparin Sodium (Lovenox(*)) 40 mg SUBCUT Q24H [facility] Last Admin: 06/27/18 01:35 Dose: 40 mg Glatiramer Acetate (Copaxone) 40 mg SUBCUT MOWEFR [facility] Last Admin: 06/26/18 09:47 Dose: Not Given Guaifenesin/Dextromethorphan (Robitussin Dm*) 5 ml PO Q6H PRN PRN Reason: COUGH Last Admin: 06/27/18 10:03 Dose: 5 ml Azithromycin 500 mg/ Sodium (Chloride) 250 mls @ 250 mls/hr IVPB Q24H [facility] Last Admin: 06/27/18 01:35 Dose: 250 mls/hr Ceftriaxone Sodium 1 gm/ (Sodium Chloride) 50 mls @ 200 mls/hr IVPB Q24H [facility] Last Admin: 06/27/18 16:45 Dose: 200 mls/hr Methylprednisolone Sodium Succinate (Solu-Medrol 40 Mg) 40 mg IV Q12H [facility] Pregabalin (Lyrica Cap(*)) 100 mg PO BID [facility] Last Admin: 06/27/18 09:59 Dose: 100 mg Venlafaxine HCl (Effexor Xr Cap*) 150 mg PO DAILY [facility] Last Admin: 06/27/18 10:00 Dose: 150 mg Vital Signs - 8 hr 06/27/18 06/27/18 06/27/18 11:53 12:43 15:39 Temperature 98.2 F 98.9 F Pulse Rate 94 107 Respiratory 20 18 16 Rate Blood Pressure 140/73 154/91 (mmHg) O2 Sat by Pulse 97 97 Oximetry Oxygen Devices in Use Now: Nasal Cannula Appearance: Pleasant elderly lady sitting up in bed in NAD. Eyes: No Scleral Icterus Ears/Nose/Mouth/Throat: Mucous Membranes Moist Neck: Trachea Midline Respiratory: Symmetrical Chest Expansion and Respiratory Effort, - - BS+ bilaterally with scattered wheezes on the right Cardiovascular: RRR - Normal S1 and S2 Abdominal: NL Sounds; No Tenderness; No Distention Neurological: Alert and Oriented x 3, NL Muscle Strength and Tone Result Diagrams: 06/25/18 23:13 06/25/18 23:13 Assess/Plan/Problems-Billing Assessment: Mrs Cleary is a 72yo F with PMH of COPD, multiple sclerosis, osteoporosis, remote h/o DVT, who presented to ED with c/o dyspnea, found to have COPD exacerbation secondary to bronchitis. - Patient Problems (1) Acute hypoxemic respiratory failure Comment: - Secondary to COPD exacerbation. - Will likely need supplemental O2 on discharge. (2) COPD with acute exacerbation Comment: - Secondary to bronchitis - continue Ceftriaxone, Zithromax, steroids, and bronchodilators. - Rapid Flu was negative. (3) Multiple sclerosis Comment: - Stable. - Continue Baclofen, Carisoprodol, Copaxone MOWEFR. (4) DVT prophylaxis Comment: - Lovenox. (5) Full code status Status and Disposition: Inpatient. Anticipate d/c in AM if symptomatic improvement.
[2018-06-27] MEDS: methylPREDNISolone SOD 40 MG* 1 ML VIAL IV SCH (20:06)
[2018-06-28] MEDS: Albuterol/Ipratropium NEB.SOL* Albuterol 2.5 MG/Ipratropium 0.5 MG 3 ML INH SCH ×3 (00:53→14:22)
[2018-06-28] MEDS: Azithromycin IV(*) 500 MG in NS 0.9% 250 ML* 250 ML IVPB SCH (01:34)
[2018-06-28] MEDS: Enoxaparin(*) 40 MG/0.4 ML SYR SUBCUT SCH (01:34)
[2018-06-28] MEDS: Venlafaxine EXT RELEASE CAP* 75 MG PO SCH (09:24)
[2018-06-28] MEDS: Benzonatate CAP* 100 MG PO SCH ×2 (09:25→14:56)
[2018-06-28] MEDS: Pregabalin CAP(*) 100 MG PO SCH (09:25)
[2018-06-28] MEDS: Aspirin EC TAB* 81 MG TAB.EC PO SCH (09:26)
[2018-06-28] MEDS: Ascorbic Acid TAB* 500 MG PO SCH (09:26)
[2018-06-28] MEDS: methylPREDNISolone SOD 40 MG* 1 ML VIAL IV SCH (09:26)
[2018-06-28] MEDS: GLATIRAMER ACETATE 40 MG/ML SUBCUT SCH (09:29)
[2018-06-28 12:30] VITALS: BP 146/79
--- NOTE | 2018-06-28 22:18 | DS ---
CC: Jeni Gardner NP; Dr. Lowe * DISCHARGE SUMMARY: DATE OF ADMISSION: 06/26/18 DATE OF DISCHARGE: 06/28/18 PRIMARY CARE PROVIDER: Jeni Gardner NP [employer]IFIC[employer] MA[employer] MACHINE OPERATOR: Dr. Lowe DISCHARGE DIAGNOSES: 1. Acute hypoxemic respiratory failure. 2. Chronic obstructive pulmonary disease exacerbation secondary to bronchitis. SECONDARY DIAGNOSES: 1. Severe chronic obstructive pulmonary disease. 2. Hyperlipidemia. 3. Osteoarthritis. 4. Multiple sclerosis. MEDICATION LIST: 1. Soma 350 mg p.o. at bedtime as needed for muscle spams. 2. Lyrica 100 mg p.o. b.i.d. 3. Albuterol sulfate 1 to 2 puffs inhaled q.4 hours as needed for shortness of breath. 4. Albuterol nebulized t.i.d. as needed for shortness of breath. 5. Aspirin 81 mg p.o. daily. 6. Vitamin C 500 mg p.o. daily. 7. Atrovent 0.5 mg nebulized b.i.d. 8. Prolia 60 mg injection every 6 months. 9. Combivent 2 puffs inhaled q.i.d. 10. Baclofen 5 mg p.o. b.i.d. as needed for spasms. 11. Atorvastatin 20 mg p.o. b.i.d. daily. 12. Effexor XR 150 mg daily. 13. Copaxone 40 mg subcutaneous Tuesday, Tuesday, and Tuesday. New medications: 1. Prednisone taper as follows 40 mg p.o. daily for 3 days; 30 mg for 3 days; 20 mg for 3 days; 10 mg for 3 days; 5 mg for 3 days and stop. 2. Cefuroxime 500 mg p.o. b.i.d. for 5 more days. 3. Zithromax 250 mg p.o. daily for 2 more days. 4. Tessalon Perles 100 mg p.o. t.i.d. as needed for cough. HOSPITAL COURSE: Mrs. Cleary is a 72-year-old lady with a past medical history as stated above who presented to the emergency room with complaints of progressive shortness of breath for 2 to 3 days prior to admission associated with cough. For more details about her presentation refer to her history and physical. The patient was found to have COPD exacerbation secondary to bronchitis and she was admitted to the medical floor for further evaluation and treatment. Rapid flu test was negative and chest x-ray showed stigmata of COPD, but no acute pulmonary process evident. The patient was started on ceftriaxone, Zithromax, steroids and she was continued on bronchodilators with progressive improvement of her symptoms. Initially, the patient required supplemental oxygen, but with her clinical improvement, she is now able to maintain saturation greater than 91% on room air. She is felt to be medically stable to be discharged home today, but she will need close follow up with Dr. Lowe as an outpatient. On her last visit with Dr. Lowe on 06/13/18, her PFTs were reviewed and suggest very severe obstructive ventilatory defect with partial reversibility to bronchodilators, evidence of air trapping, and diffusion capacity that corrected to moderate decrease when adjusted for alveolar ventilation. On that visit, Dr. Lowe had discontinued her Advair and had discussed a trial of Anoro. At that time, the patient was not interested, but now after this episode of bronchitis, she is reconsidering. She is also interested in talking more about using some anxiety medications to help with symptom control. Also on her last visit with Dr. Lowe, there was concern for obstructive sleep apnea. Her home sleep was nondiagnostic and the plan was for an in-lab study as suspicion for BERE remains. I think, another aspect that will be positive is if the patient could be referred to pulmonary rehab. She is medically stable to be discharged home today and I did contact Dr. Lowe 's office who will be reaching out to the patient, so she can be seen prior to the end of the month. PHYSICAL EXAMINATION: Vital Signs: Temperature 97.5, heart rate is 88, respiratory rate is 20, oxygen saturation is 95% on room air, blood pressure is 146/79. General: The patient is a pleasant, elderly lady, sitting up in bed, in no acute distress. CVS: Normal S1 and S2. Regular rate and rhythm. Chest : Breath sounds bilaterally diminished with no added sounds. Neuro: She is alert and oriented x3, able to move all 4 extremities. DIET: Regular diet. ACTIVITY: As tolerated. DISPOSITION: To home. STATUS WHILE IN THE HOSPITAL: Inpatient. Please keep in mind this is a summarized version of this patient's hospital stay. If you need more information, please feel free to call me at [phone] or please obtain the full medical records. TIME SPENT: Approximately 45 minutes was spent to complete this discharge. [id number]/[facility] #: [id number] TOM
== END 2018-06-28 17:40 | disposition hospice, home (50) | DRG 190 ==
LOC: ED 22:34 → MEDTELE 06-26 01:02
PROVIDERS: ADMIT Internal Medicine; ATTEND Internal Medicine
DX: J44.1 Chronic obstructive pulmonary disease with (acute) exacerbation (principal); J96.01 Acute respiratory failure with hypoxia; E03.9 Hypothyroidism, unspecified; M81.0 Age-related osteoporosis without current pathological fracture; M19.042 Primary osteoarthritis, left hand; M19.041 Primary osteoarthritis, right hand; R00.0 Tachycardia, unspecified; G35 Multiple sclerosis; E78.5 Hyperlipidemia, unspecified; F32.9 Major depressive disorder, single episode, unspecified; J40 Bronchitis, not specified as acute or chronic; G47.33 Obstructive sleep apnea (adult) (pediatric); F41.9 Anxiety disorder, unspecified; Z96.642 Presence of left artificial hip joint; M16.11 Unilateral primary osteoarthritis, right hip; Z82.49 Family history of ischemic heart disease and other diseases of the circulatory system; Z90.711 Acquired absence of uterus with remaining cervical stump; Z88.1 Allergy status to other antibiotic agents; Z88.0 Allergy status to penicillin; Z88.2 Allergy status to sulfonamides; Z86.718 Personal history of other venous thrombosis and embolism; Z85.118 Personal history of other malignant neoplasm of bronchus and lung; Z98.1 Arthrodesis status; Z83.3 Family history of diabetes mellitus; Z87.891 Personal history of nicotine dependence; Z82.5 Family history of asthma and other chronic lower respiratory diseases; Z79.82 Long term (current) use of aspirin
CPT/HCPCS: 36415; 71045; 80053; 83605; 83880; 84484; 85025; 85610; 85730; 86140; 87040; 93005; 94640; 99284; A9270-GY; J0456; J0696; J1650; J2920; J2930; J3475; J7512

== ENCOUNTER 2018-08-20 11:26 | Emergency (ER) | payer MEDICARE, OTHER ==
--- OUTSIDE RECORDS SUMMARY | 2018-08-20 12:53 | XMS REPORT | Continuity of Care Document ---
:1945 External Reference #:[id number] Author Name Herve Vladislav Care Team Providers Name Role Phone Abida Wadsworth MD Primary Care Physician Unavailable Payers Date Identification Numbers Payment Provider Subscriber Effective: 2012 Policy Number: [id number] Medicare Nabila Cleary PayID: [id number] [address] [place] [address] Effective: 2016 Policy Number: [id number] [employer] Nabila Cleary Expires: 2017 PayID: [id number] [address] [address] Effective: 2012 Policy Number: [id number] [employer] Nabila Cleary Expires: 2016 PayID: [id number] [address] [address] Effective: 2009 Policy Number: [id number] BS Of [facility] Nabila Cleary Expires: 2011 Group Number: [id number] [address] PayID: [id number] [place] [address] Policy Number: [id number] [facility] Nabila Cleary PayID: [id number] [address] [place] [address] Advance Directives Description No Information Available Problems Date Description Provider Status Onset: 12/03/2010 Chronic obstructive lung disease Maryjo Joshi M.D., [facility] Active Onset: 12/03/2010 Multiple sclerosis Maryjo Madelyn, M.D., [facility] Active Onset: 03/15/2011 Tobacco user Maryjo Joshi M.D., [facility] Active Onset: 07/07/2016 Localized, primary osteoarthritis of Akosua Guzman M.D. Active the pelvic region and thigh Onset: 12/08/2017 Chronic obstructive pulmonary PENELOPE Haider Active disease with (acute) exacerbation Onset: 12/08/2017 Hyperlipidemia PENELOPE Haider Active Onset: 08/16/2018 Taking medication Garrison Mckeon M.D. 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 Cigarette Use Pack Years - 46 Tobacco Use Start: Unknown Former Cigarette Smoker Quit 2012 Smoked End: Unknown for 40 years, 1ppd Tobacco Use Start: Unknown Vaping Not sure if it has nicotine, a couple times a day Smoking Status Reviewed: 08/18/18 Vaping Not sure if it has nicotine, a couple times a day ETOH Use Drinks Alcoholic Beverages Rarely Tobacco Use Start: Unknown Patient is a [...] Tablets 10mg 45tab / po qhs Garrison Perez s prn spasms Alba Mckeon Walker 10/31 Active Misc 1unit front s carloz Smith dx: Alba severe b/L hip OA Nebulizer 07/18 Active Device 1unit use three s times a day Varn, N.P. as needed Prolia 10/23 Active Solution 60mg/ml 1ml 1 [...] Active Tablets 20mg 90tab take 1 E78.5 Calcium s tablet by Varn, N.P. mouth once [...] Solution 0.02% 60uni use twice J44.9 Jeni Milfay ts daily in Varn, N.P. nebulizer as needed Vitamin C Active Chewtabs 500mg 1 po qd Unknown Fish Oil Active Capsules 1200mg 1 po qd Lyrica Active Capsules 100mg 90cap take 1 s tablet by Varn, N.P. mouth 3 times daily. max/day=3 mdd 3 Prednisone 07/26 Hx Tablets 5mg 49tab 4 tab daily J44.9 Karli /2019 s for 1 week, Daryl, - then 2 tab TRANSCRIBING OPERATOR HEAD 08/15 daily for week, then 1 tab daily for 1 week Prednisone 03/22 Hx Tablets 10mg 40tab 4 tablets by R06.02 s mouth for 4 Varn, N.P. - days 3 04/07 tablets by mouth for 4 days 2 tablets by mouth for 4 days 1 tablet by mouth for 4 days Azithromycin 03/22 Hx Tablets 250mg 6tabs two tabs day R06.02 one, one Varn, N.P. - daily till 04/01 Hydrocodone-Gilberto 11/05 Hx Tablets 5-325mg 10tab 1 tab by Akosua taminophen s mouth twice Thomas, - a day as M.D. 06/12 needed for pain Tramadol HCL 11/04 Hx Tablets 50mg 30tab 1 tab twice Akosua s a day as Thomas, - needed for M.D. 06/12 pain /2019 Advair Diskus 10/21 Hx Aerosol 500-50mcg 60uni inhale one /Dose ts dose by Varn, N.P. - mouth twice 07/25 Tamiflu 08/08 Hx Capsules 75mg 10cap 1 by mouth s daily for 10 Varn, N.P. - days 08/18 Cipro 07/19 Hx Tablets 250mg 14tab one by nouth s twice daily Varn, N.P. - for 7 days 07/26 Copaxone 03/16 Hx Soln 40mg/ml 12ml inject 1 Prefill syringe Mike, - Syringe under the M.D. 08/15 skin times a week Xarelto 07/30 Hx Tablets 15mg 40tab 1 [...] tabs by J44.9 Hugo mouth every Sue, TRANSCRIBING OPERATOR HEAD - day x1 day, 04/21 1 tab by mouth every day x 4 days Venlafaxine HCL 08/11 Hx Caps ER 75mg 30cap 1 by mouth F32.9 24HR s every day Varn, N.P. - 03/15 Levaquin 05/15 Hx Tablets 500mg 10tab 1 by mouth s every day Sue TRANSCRIBING OPERATOR HEAD - 05/25 Prednisone 05/05 Hx Tablets 10mg 16tab take 4 tab s daily x 1 Sue TRANSCRIBING OPERATOR HEAD - day then 3 05/15 tab daily x 2 days, then 2 tab daily for 2 day, and 1 tab for 2 day. Azithromycin 04/30 Hx Tablets 250mg 6tabs 2 tabs by J20.9 Hugo mouth every Sue, TRANSCRIBING OPERATOR HEAD - day x1 day, 05/06 1 tab mouth every day x 4 days Tramadol HCL 06/05 Hx Tablets 50mg 30tab 1 tablet 724.5 s three to Vargaviota, N.P. - four times 06/19 daily needed [...] - day every M.D., FACP 10/10 night as /2014 needed Provigil 05/26 Hx Tablets 200mg 60tab 1 tablet Garrison S. s twice daily Mike, Deuce mdd 2 tabs M.D. 06/19 Prednisone 05/01 [...] - cough 10/04 Ergocalciferol 11/07 Hx Capsules 75170Pkjw 8caps one po once 268.9 weekly Deuce Joshi M.D., FACP 01/06 Advair Diskus 06/16 Hx Aerosol 250-50mcg 180un inhale 1 /Dose its dose by Varn, N.P. - mouth twice 10/21 a day Estrace 03/15 Hx Cream 0.1mg/GM 42.50 1 596.9 0gm application Madelyn, - two times M.DWendy, [facility] 04/27 Levofloxacin 02/03 Hx Tablets 500mg 7tabs 1 po qd 496 Deuce Joshi M.D., FACP 04/15 Advair Diskus 02/03 Hx Aerosol 500-50mcg 1unit 1 puff bid /Dose s Deuce Joshi M.D., [facility] 06/16 Alprazolam 12/28 Hx Tablets 0.25mg 30tab 1 tab three 300.00 s times daily Madelyn, - as needed M.D., [facility] 08/09 Prednisone 12/10 Hx Tablets 10mg 15tab 1 tablet by 496 s mouth every Madelyn, - morning for M.D., [facility] 02/03 one week - then 1/2 tablet by mouth for one week - then 1/4 tablet by mouth for one week Robitussin ac 12/10 Hx Solution 4Oz 1-2 tsp at 496 bedtime as Madelyn, - needed M.D., [facility] 08/08 Wellbutrin SR 12/10 Hx Tablets ER 100mg 30tab 1 by mouth 496 12HR s every Am Deuce Joshi M.D., [facility] 02/03 Nebulizer 12/10 Hx use as J44.9 directed Deuce Joshi M.D., [facility] 07/18 Levofloxacin 12/03 Hx Tablets 500mg 7tabs 1 tab by 496 mouth every Madelyn, - day M.D., [facility] 12/10 Prednisone 12/03 Hx Tablets 5mg 50tab 4 tabs po qd 496 s x 4d then 3 Madeyln, - tabs po qd x M.D., [facility] 12/10 3d then tabs po qd x 2d then 1 tab po qd x 1 d then 1/2 tab po qd x 2d. Combivent 09/14 Hx Aerosol 18-103mcg 14.7u inhale 2 / nits puffs by Varn, N.P. - mouth tid 12/12 Aspirin 03/25 Hx Tablets 81mg 1 by mouth once daily Deuce Wadsworth M.D. 12/26 Chantix 12/02 Hx Start 1unit use as Pack s directed Deuce Joshi M.D., [facility] 03/25 Effexor XR 12/01 Hx Caps ER 150mg 90cap 1 tablet 24HR s daily Deuce Joshi M.D., [facility] 02/22 Soma 12/01 Hx Tablets 350mg 90tab 1 tab by Garrison Wendy s mouth q6 Mike, Deuce hours as M.DWendy 06/19 needed mdd Advair Diskus Hx 250-50mcg 3mont 1 inhalation Maryjo /0000 /Dose hs twice daily Deuce Joshi M.D., [facility] 02/03 Combivent Hx 103-18mcg 1 Inhalation Madelyn, / /Act Twice A Day MD Maryjo - as Needed 09/14 Cheratussin ac Hx 100-10mg/ 118ml 1-2 tsp po Maryjo 0000 5ML qhs prn Deuce Joshi M.D., [facility] 12/01 Azithromycin Hx 250mg 6unit 2 tabs po Maryjo /0000 s day 1 then 1 Madelyn, - po qd til M.DWendy, [facility] 12/01 Alendronate Hx Tabs 70mg 4tabs take 1 Maryjo Sodium 0000 tablet by Madelyn - mouth every M.D., [facility] Lipitor Hx Tablets 20mg 90tab 1 po qd 272.4 Jeni /0000 s Kendra, N.P. - 01/14 Copaxone Hx Soln 20mg/ml 90uni 1 inj daily Garrison S. Prefill ts Mike, - Syringe M.DWendy 03/16 Baclofen Hx Tablets 5mg 1 tablet bid Unknown /0000 as needed - 06/19 Warfarin Sodium Hx Tablets 1mg [place], /0000 MD Suleiman [...] Code Status Date Vaccine Reaction Lot # [id number] Given 02/09/2016 Influenza Virus Vaccine, no reaction noted [id number] Quadrivalent, Split, .... hh Preservative Free 83063 Given 08/12/2015 Pneumococcal Conjugate [id number] Vaccine 13 Valent For Intramuscular Use Q2039 Given 03/05/2015 Flu Vaccine NOS 24324 Given 02/26/2014 Fluzone High Dose Q2037 Given 04/18/2012 Fluvirin Im 3Yrs And Older Q2037 Given 04/18/2012 Fluvirin Im 3Yrs And Older [id number] 18718 Given 04/18/2012 Zoster (Zostavax) [id number] 93785 Given 02/03/2011 Influenza Virus 3Yrs & Over [id number] 58807 Given 03/20/2010 Influenza Virus 3Yrs & Over [id number] 26347 Given 04/24/2009 Administration Swine Flu Shot 30051 Given 04/24/2009 Influenza Virus Vaccine, Pandemic Formulation 38795 Given 02/24/2009 Influenza Virus 3Yrs & Over 96561 Given 02/16/2008 Pneumonia Vaccine 63237 Given 02/16/2008 Pneumonia Vaccine 77821 Given 02/16/2008 Influenza Virus 3Yrs & Over 14181 Given 04/18/2007 Influenza Virus 3Yrs & Over 08316 Given 06/23/2006 Tdap - Tetanus/Diptheria/Acellular Pertussis 49041 Given 06/23/2006 Tdap - Tetanus/Diptheria/Acellular Pertussis 10635 Given 04/04/2006 Influenza Virus 3Yrs & Over Vital Signs Date Vital Result Comment 08/18/2018 1:32pm Heart Rate 75 /min BP Systolic 118 mmHg BP Diastolic 68 mmHg Body Temperature 97.3 F Pain Level 3 08/16/2018 2:36pm Height 67 inches 5'7" Weight 122.00 lb Heart Rate 98 /min BP Systolic Sitting 110 mmHg BP Diastolic Sitting 72 mmHg BMI (Body Mass Index) 19.1 kg/m2 07/26/2018 11:00am Height 67 inches 5'7" Weight 121.50 lb Heart Rate 60 /min BP Systolic Sitting 120 mmHg Lue regular cuff BP Diastolic Sitting 84 mmHg Lue regular cuff Respiratory Rate 16 /min O2 % BldC Oximetry 94 % BMI (Body Mass Index) 19.0 kg/m2 06/19/2018 11:45am Height 67 inches 5'7" Weight [...] Diastolic 73 mmHg O2 % BldC Oximetry 93225 % BMI (Body Mass Index) 18.2 kg/m2 [...] Date Facility Test Result H/L Range Note Laboratory test [facility] B-Type 15 pg/mL <=100 finding [address] [place] [address] Peptide BNP [phone] Inr/Protime [facility] Inr 0.86 N 0.77-1.[address] [place] [address] [phone] Laboratory test [facility] Partial Thrombo 27.9 seconds N 26.0-36.3 finding [address] [place] [address] [phone] Comp Metabolic [facility] Sodium 139 mmol/L N 135- 145 Panel [address] [place] [address] [phone] Potassium 4.2 mmol/L N 3.5-5.0 Chloride 102 mmol/L N 101-111 Co2 Carbon Dioxide 31 mmol/L N 22-32 Anion Gap 6 mmol/L N 2-11 Glucose 132 mg/dL High 70-100 Blood Urea Nitrogen 12 mg/dL N 6-24 Creatinine 0.67 mg/dL N 0.51-0.95 BUN/Creatinine Ratio 17.9 N 8-20 Calcium 9.7 mg/dL N 8.6-10.3 Total Protein 7.0 g/dL N 6.4-8.9 Albumin 4.4 g/dL N 3.2-5.2 Globulin 2.6 g/dL N 2-4 Albumin/Globulin Ratio 1.7 N 1-3 Total Bilirubin 0.30 mg/dL N 0.2-1.0 Alkaline Phosphatase 90 U/L N 34-104 Alt 13 U/L N 7-52 Ast 17 U/L N 13-39 Egfr Non- 86.8 >60 Egfr 105.0 >60 1 Laboratory test 06/25/2018 [facility] C Reactive < 1.00 mg/L N <8.[address] [place] [address] [phone] Troponin-I (TnI) 0.00 ng/mL <0.04 2 Lactic Acid 1.6 mmol/L N 0.5-2.0 3 CBC Auto Diff 11/25/2017 [facility] White Blood 5.7 10^3/uL N 3.5-10.[address] [place] [address] [phone] Red Blood Count 4.68 10^6/uL N 4.00-5.40 [...] Sodium 140 mmol/L N 135-145 [address] [place] [address] [phone] Potassium 4.1 mmol/L N 3.5-5.0 Chloride 103 [...] Egfr Non- 124.9 >60 Egfr 151.1 >60 4 Urinalysis Profile 11/25/2017 [facility] Urine Color Yellow [address] [place] [address] [phone] Urine Appearance Clear Urine Specific [place] 1.017 N 1.010-1.030 Urine pH 6.0 N 5-9 Urine Urobilinogen Negative Negative Urine Ketones Negative Negative Urine Protein Negative Negative Urine Leukocytes Negative Negative Urine Blood Negative Negative Urine Nitrite Negative Negative Urine Bilirubin Negative Negative Urine Glucose Negative Negative Inr/Protime 11/25/2017 [facility] Inr 0.89 N 0.77-1.[address] [place] [address] [phone] Laboratory test 11/25/2017 [facility] Partial 27.4 seconds N 26.0-36.[address] [place] [address] PTT [phone] Type & Screen 11/25/2017 [facility] Patient O Positive [address] [place] [address] [phone] Antibody Screen NEGATIVE Urine Culture And 11/25/2017 [facility] Urine Culture SEE RESULT [address] [place] [address] [phone] Urine Culture And 07/20/2017 [facility] Urine Culture SEE RESULT [address] [place] [address] [phone] Laboratory test 10/01/2016 [facility] Surgical SEE RESULT 7 , [address] [place] [address] [phone] CBC Auto Diff 02/06/2016 [facility] White Blood 5.2 10^3/uL N 3.5-[address] Count 0.8 [place] [address] [phone] Red Blood Count 4.54 10^6/uL N 4.0-5.4 [...] 137 mmol/L N 133-[address] [place] [address] [phone] Potassium 4.2 mmol/L N 3.5-5.0 Chloride 103 [...] 105.2 N >60 Egfr 135.2 N >60 9 Comp Metabolic Panel 11/13/2013 [facility] Sodium 138 mmol/L N 133-145 10 [address] [place] [address] [phone] Potassium 4.1 mmol/L N 3.7-5.6 Chloride 104 [...] 115.4 N >60 Egfr 148.4 N >60 11 Vitamin D, 25 11/13/2013 [facility] 25-Hydroxy Vitamin <4.0 ng/ mL N Hydroxy [address] [place] [address] [place] [address] [phone] 25-Hydroxy Vitamin D3 28 ng/mL N 25-Hydroxy Vitamin D Total 28 ng/mL N 12 Lipid Profile 11/13/2013 [facility] Triglycerides 53 mg/dL N 13 (Trig/Chol/HDL) [address] [place] [address] [phone] Cholesterol 286 mg/dL N 14 HDL Cholesterol 73.8 mg/dL N 15 LDL Cholesterol 202 mg/dL N 16 Laboratory 11/13/2013 [facility] Hepatitis C Nonreactive N Nonreactive test finding [address] Antibody [place], [place] [phone] Basic 08/16/2013 [facility] Sodium 135 mmol/L N 133-[address] [place] [address] [phone] Potassium 5.2 mmol/L N 3.7-5.6 Chloride 99 mmol/L Low 101-111 Co2 Carbon Dioxide 31 mmol/L N 22-32 Anion Gap 5 mmol/L N 2-11 Glucose 73 mg/dL N 70-100 Blood Urea Nitrogen 13 mg/dL N 6-24 Creatinine 0.46 mg/dL Low 0.51-0.95 BUN/Creatinine Ratio 28.3 High 8-20 Calcium 9.6 mg/dL N 8.6-10.3 Egfr Non- 135.9 N >60 Egfr 174.8 N >60 17 Laboratory test 10/16/2012 [facility] TSH (Thyroid 2.25 0.34- 5.[address] Stimulating miu/[place] [address] Horm) [phone] CBC With Manual 10/16/2012 [facility] White Blood 5.9 4.8- 10.[address] Count 10^3/[place] [address] [phone] Red Blood Count 4.46 10^6/uL 4.0-5.4 Hemoglobin [...] LDH 190 U/L High 95-185 finding 101 [place] [address] [phone] Comp Metabolic 10/16/2012 [facility] Sodium 138 mmol/L 133- 145 Panel [address] [place] [address] [phone] Potassium 4.0 mmol/L 3.5-5.0 Chloride 103 mmol/L [...] Egfr Non- 123.8 >60 Egfr 159.2 >60 18 Laboratory test 10/16/2012 [facility] C Reactive < 0.5 mg/dL Less than finding [address] Protein 0.5 [place] [address] [phone] Erythrocyte Sed Rate 16 mm/Hr 0-40 Vitamin D, 25 11/01/2011 [facility] 25-Hydroxy Vitamin <4.0 ng/ mL () Hydroxy [address] D[address] [place] [address] [phone] 25-Hydroxy Vitamin D3 22 ng/mL () 25-Hydroxy Vitamin D Total 22 ng/mL Abnormal () 19 Vitamin D 1,25 11/01/2011 [facility] Vitamin D, 1,25 63 pg/mL 18-78 20 And Vitamin D,[address] [place] [address] [phone] Laboratory test 11/01/2011 [facility] TSH 2.76 0.34-5.[address] MIU/[place] [address] [phone] Lipid Profile 11/01/2011 [facility] Triglyceride 43 mg/dL 40- 200 (Trig/Chol/HDL) [address] [place] [address] [phone] Cholesterol 246 mg/dL High Less Than 200 21 High Density Lipoprotein 90 mg/dL High 40-60 22 Cholesterol/HDL Ratio 2.73 AVERAGE 1-4.44 Low Density Lipoprotein 147 mg/dL High Less Than 100 23 Comp Metabolic Panel 11/01/2011 [facility] Sodium 134 mmol/L Low 135-[address] [place] [address] [phone] Potassium 4.2 mmol/L 3.5-5.0 Chloride 102 mmol/L 101-111 Co2 (Carbon Dioxide) 29.0 mmol/L 22-32 Anion Gap 3.0 mmol/L 2-11 24 Glucose 101 mg/dL High 70-100 BUN 13 mg/dL 6-24 Creatinine 0.5 mg/dL Low 0.50-1.40 One Over Creatinine 2.00 BUN/Creatinine Ratio 26.0 High 8-20 Calcium 8.9 mg/dL 8.1-9.9 Total Protein 6.2 GM/DL 6.2-8.1 Albumin 3.9 GM/DL 3.2-5.2 Globulin 2.3 GM/DL 2-4 Albumin/Globulin Ratio 1.7 1-3 Bilirubin Total 0.7 mg/dL 0.4-1.5 25 Alkaline Phosphatase 64 U/L 30-110 Alt (SGPT) 20 U/L 14-54 Ast (Sgot) 23 U/L 12-42 eGFR Non- 124.2 > 60 eGFR 159.7 > 60 26 Laboratory test 04/13/2011 [facility] Troponin-I 0.01 NG/ML 0 -0.06 [address] [place] [address] [phone] CKMB 04/13/2011 [facility] CKMB In NG/ML 4.3 NG/ML High 0.3- 4.[address] [place], [place] [address] [phone] % CKMB 3 %MB 0-9 28 Laboratory test 04/13/2011 [facility] CPK (Creatine 134 U/L 0 -[address] Kinase) [place] [address] [phone] CBC Auto Diff 04/13/2011 [facility] White Blood 5.2 CUMM 4.8- 10.[address] [place] [address] [phone] Red Cell Count 4.39 CUMM 4.2-5.4 Hemoglobin [...] [facility]iatric Center Sodium 138 mmol/L 135-[address] [place] [address] [phone] Potassium 3.9 mmol/L 3.5-5.0 Chloride 101 mmol/L 101-111 Co2 (Carbon Dioxide) 29.0 mmol/L 22-32 Anion Gap 8.0 mmol/L 2-11 29 Glucose 95 mg/dL 70-100 BUN 11 mg/dL 6-24 Creatinine 0.5 mg/dL Low 0.50-1.40 One Over Creatinine 2.00 BUN/Creatinine Ratio 22.0 High 8-20 Calcium 8.8 mg/dL 8.1-9.9 Total Protein 6.2 GM/DL 6.2-8.1 Albumin 3.8 GM/DL 3.2-5.2 Globulin 2.4 GM/DL 2-4 Albumin/Globulin Ratio 1.6 1-3 Bilirubin Total 0.5 mg/dL 0.4-1.5 30 Alkaline Phosphatase 70 U/L 30-110 Alt (SGPT) 24 U/L 14-54 Ast (Sgot) 28 U/L 12-42 eGFR Non- 124.2 > 60 eGFR 159.7 > 60 31 Laboratory test 03/19/2011 [facility] TSH 2.89 MIU/ML 0.34- 5.[address] [place] [address] [phone] Vitamin D 1,25 03/19/2011 [facility] Vitamin D, 65 pg/mL 18- 78 32 And Vitamin D,2 DRIVE 1,25 [place] [address] [phone] Vitamin D, 25 03/19/2011 [facility] 25-Hydroxy <4.0 ng/mL () Hydroxy DRIVE Vitamin D2 [place] [address] [phone] 25-Hydroxy Vitamin D3 37 ng/mL () 25-Hydroxy Vitamin D Total 37 ng/mL () 33 Surgical 07/11/2006 [facility] Surgical [address] Pathology <SEE NOTE> [place] [address] [phone] 1 Because ethnic data is not always [...] 5 Kidney failure <15 (or dialysis) 2 Troponin-I testing on Plasma Separator Tubes (PST) has a known false positive rate of 0.20-0.40%. All positive troponins reflex immediate secondary confirmatory testing. [facility] Severe Sepsis and Septic Shock Management Bundle Measure requires all lactic acids initially measuring >2.0 mmol/L be repeated. 4 Because ethnic data is not always [...] 5 Kidney failure <15 (or dialysis) 5 SEE RESULT BELOW Name: NABILA CLEARY : [address]: Akosua Guzman MD Acct: [id number] Unit: [id number] AGE: 71 Location: [facility] Re11/25/17 SEX: F Status: REG REF SPEC: [id number] CUCA: 11/25/17-[address] [facility] [address]: Akosua Guzman MD REQ: [id number] RECD: 11/25/17 STATUS: COMP OTHR DR: Hugo Rogers TRANSCRIBING OPERATOR HEAD _ SOURCE: URINE SPDESC: ORDERED: Urine Culture QUERIES: Urine Source: Clean Catch Procedure Result Reported Site Urine Culture Final 11/26/17- 1312 ML No Growth (<1,000 CFU/mL) * ML - Main Lab . END OF REPORT DEPARTMENT OF PATHOLOGY, [address] [place] [address] Kervin Read M.D. Director [facility] # [id number] 6 SEE RESULT BELOW Name: NABILA CLEARY : [address]: Jeni Gardner NP Acct: [id number] Unit: [id number] AGE: 71 Location: [facility] Re07/20/17 SEX: F Status: REG REF SPEC: [id number] CUCA: 07/20/[address] [facility] [address]: Jeni Gardner NP REQ: [id number] RECD: 07/20/17 STATUS: RAIZA GUDINO DR: Abida Wadsworth MD _ SOURCE: URINE SPDESC: ORDERED: Urine Culture Procedure Result Reported Site Urine Culture Final 07/22/17- 0854 ML Organism 1 ESCHERICHIA COLI [place] Count >100,000 (Many) CFU/ML 1. ESCHERICHIA COLI [...] . END OF REPORT DEPARTMENT OF PATHOLOGY, [address] [place] [address] Kervin Read M.D. Director [facility] # [id number] SEE RESULT BELOW Name: NABILA CLEARY : [address]: Adrian España MD Acct: [id number] Unit: [id number] AGE: 70 Location: [facility] Re10/01/16 SEX: F Status: REG REF SPEC: [id number] CUCA: 10/01/16-[address] [facility] [address]: Adrian España MD REQ: [id number] RECD: 10/01/16 STATUS: ZAFAR GUDINO DR: Dakota Gardner TRANSCRIBING OPERATOR HEAD _ ORDERED: LEVEL 4/3 COMMENTS: [id number] FINAL DIAGNOSIS 1. Skin, left cheek superior, [...] performed at Main Lab DEPARTMENT OF PATHOLOGY, [address] [place] [address] Kervin Read M.D. Director [facility] # [id number] RUN DATE: 10/06/16 [facility] LAB LIVE PAGE 2 Patient: NABILA CLEARY [id number] (Continued) GROSS DESCRIPTION (Continued) Signed (signature on file) Fatuma Morrison MD 1331 END OF REPORT * ML=Testing performed at Main Lab DEPARTMENT OF PATHOLOGY, [address] [place] [address] Kervin Read M.D. Director [facility] # [id number] 9 Because ethnic data is not always [...] 5 Kidney failure <15 (or dialysis) 10 FASTING 11 Because ethnic data is not always readily [...] 15-29 5 Kidney failure <15 (or dialysis) 12 -- REFERENCE VALUE -- 25-HYDROXY D TOTAL (D2+D3) Optimum levels in the healthy population are 20-50, patients with bone disease may benefit from higher levels within this range. Test Performed by: [facility] - [address] [address] Dry Wall Finisher: Brad Langley III, M.D. 13 Desirable <150 Borderline high 150-199 High 200-499 Very High >500 14 Desirable <200 Borderline high 200-239 High >239 15 Low <40 Desirable: 40-60 High: >60 16 Desirable <100 Near Optimal 100-129 Borderline high 130-159 High 160-189 Very High >189 17 Because ethnic data is not always readily [...] 15-29 5 Kidney failure <15 (or dialysis) 18 Because ethnic data is not always readily [...] 15-29 5 Kidney failure <15 (or dialysis) 19 Interpretation: 10-24 (mild to moderate deficiency) -- REFERENCE VALUE -- 25-HYDROXY D TOTAL (D2+D3) Optimum levels in the normal population are 25-80 Test Performed by: [address] [address] Dry Wall Finisher: Brad Langley III, M.D. 20 Test Performed by: [address] [address] Dry Wall Finisher: Brad Langley III, M.D. 21 CHOLESTEROL INTERPRETATION: Desirable: Less than 200 [...] Risk: LDL Greater than 189 MG/DL 24 Anion gap measurement may be of limited value in the presence of any alkalosis, especially in a combined acid base disorder. . 25 A metabolite of Naproxen, O-desmethylnaproxen, has been shown to interfere with the Jendrassik-Gurley method for measuring total bilirubin. Samples from [...] 5 Kidney failure <15 (or dialysis) 27 New Reference Range and Interpretation effective 02/16/2002 TnI (ng/ml) INTERPRETATION Less Than 0.06 ng/mL NOT SUPPORTIVE OF DIAGNOSIS OF [place] 0.06 - 0.50 ng/ml INDETERMINATE: SUGGEST SERIAL STUDIES IF CLINICALLY INDICATED. Greater than 0.5 ng/mL CONSISTENT WITH DIAGNOSIS OF [place] . 28 INTERPRETATION %CK-MB < 5% NOT SUPPORTIVE OF DIAGNOSIS OF [place] 5 - <10% INDETERMINATE; SUGGEST SERIAL STUDIES IF CLINICALLY INDICATED 10% OR > CONSISTENT WITH DIAGNOSIS OF [place] . 29 Anion gap measurement may be of limited value in the presence of any alkalosis, especially in a combined acid base disorder. . 30 A metabolite of Naproxen, O-desmethylnaproxen, has been shown to interfere with the Jendrassik-Gurley method for measuring total bilirubin. Samples from patients who have taken Naproxen have shown spurious elevation in total bilirubin levels. 31 Because ethnic data is not always readily [...] 15-29 5 Kidney failure <15 (or dialysis) 32 Test Performed by: [facility] Dpt of Lab Med and Pathology [address] [place] [address] Dry Wall Finisher: Brad Langley III, M.D. 33 -- REFERENCE VALUE -- 25-HYDROXY D TOTAL (D2+D3) Optimum levels in the normal population are 25-80 Test Performed by: [facility] Dpt of Lab Med and Pathology [address] [place] [address] Dry Wall Finisher: Brad Langley III, M.D. 34 ---- RUN DATE: 07/13/06 [facility] NMI LIVE PAGE 1 RUN TIME: 1521 Specimen Inquiry RUN USER: INTERFACE [id number] NABILA CLEARY Izabel 60/F <[facility] 07/12> ([id number]) VIC Allen MD, Celestino Nguyen -- Specimen: [id number] SOUT Spec Date: 07/11/[address]: Celestino Sierra MD Spec Type: SURGICAL P Received: 07/12/06 Copies to: Maryjo Joshi MD SPECIMEN L3 -L4 DISC HISTORY PRE-OP DIAGNOSIS: L3-L4 disc protrusion GROSS DESCRIPTION The specimen is received in formalin labelled Nabila Cleary, L3-L4 Disc and consists of multiple fragments of hill-mixon fibrous soft tissue measuring 2.5 x 1.5 x 0.6 cm. in aggregate. Cheesemaker Helper sections, one cassette. DIAGNOSIS Intervertebral disc, L3-4, discectomy - Intervertebral disc material. Signed Electronically by: KERVIN READ MD 07/13/06 -- -- DEPARTMENT OF PATHOLOGY, [address] [place] [address] [facility] Permit #[id number] [place] II, M.D. Director Kervin Read M.D. Electrogalvanizing Machine Operator D irector -- Procedures Date Code Description Status 07/19/2018 34666 Polysomnography Sleep Staging 4+ Parameters Completed 03/22/2018 40382 EKG Tracing & Interpretation Completed 12/08/2017 17933 THR Total Hip Replacement Completed 12/08/2017 99204 THR Total Hip Replacement Completed 12/06/2017 39529 Diffusing Capacity Completed 12/06/2017 30866 Plethysmography Determination Lung Volumes & Per Completed Airway Resist 12/06/2017 01213 Pulmonary Function><Bronchodil Completed 11/27/2017 84435 Sleep Study Unattended,HRT Rate,Oxygen Sat,Resp Completed Effort/Airflow 11/23/2017 54180 EKG Tracing & Interpretation Completed 03/01/2017 86590 Admin Of Inj Completed 09/02/2016 56828 Admin Of Inj Completed 03/05/2016 11186 Chemotherpy Admin Subcutaneous/Im Non-Hormonal Completed Anti-Neoplastic 08/19/2015 [id number] Mammogram Completed 08/19/2015 658180725 Bone Mineral Density Test Completed 10/10/2013 06933 EKG Tracing & Interpretation Completed 08/22/2013 [id number] Mammogram Completed 11/11/2011 81183718 Colonoscopy Completed 08/10/2011 42257 EKG Tracing & Interpretation Completed 04/13/2011 59065 Noninvasive Ear Or Pulse Oximetry For Oxygen Completed Saturation 04/13/2011 30016 EKG Tracing & Interpretation Completed 03/18/2011 825806603 Bone Mineral Density Test Completed 02/18/2011 [id number] Mammogram Completed 02/10/2011 63748 Noninvasive Ear Or Pulse Oximetry For Oxygen Completed Saturation 02/03/2011 48492 Noninvasive Ear Or Pulse Oximetry For Oxygen Completed Saturation 12/10/2010 45066 Noninvasive Ear Or Pulse Oximetry For Oxygen Completed Saturation 12/03/2010 65108 Inhalation TX For Acute Airway Obstruction Completed W/Nebulizer/Inhaler 12/03/2010 63501 Noninvasive Ear Or Pulse Oximetry For Oxygen Completed Saturation 03/25/2010 71548 EKG Tracing & Interpretation Completed 09/24/2008 334891955 Bone Mineral Density Test Completed 09/12/2008 99529 EKG Tracing & Interpretation Completed 04/26/2008 85544 Noninvasive Ear Or Pulse Oximetry For Oxygen Completed Saturation 04/26/2008 60231 Noninvasive Ear Or Pulse Oximetry For Oxygen Completed Saturation 04/26/2008 16216 Inhalation TX For Acute Airway Obstruction Completed W/Nebulizer/Inhaler 09/06/2007 37836298 Mammogram Completed 07/13/2006 01329 EKG Tracing & Interpretation Completed 07/13/2006 89880 EKG Tracing & Interpretation Completed 07/11/2006 00976 Laminotomy W/Decomp NRV RT,One Interspace,Lumbar Completed 06/23/2006 89482 EKG Tracing & Interpretation Completed 04/29/2006 [id number] Mammogram Completed Encounters Type Date Location Provider Dx Diagnosis Office Visit 08/18/2018 Orthopedic Akosua Guzman, M25.552 Pain in left hip 1:15p Services Of Hussein Willis M16.12 Unilateral primary osteoarthritis, left hip Office Visit 07/26/2018 11:00a Pulmonology And Sleep Laquita Lowe, R06.83 Snoring Services Of Oj BECKWITH J44.9 Chronic obstructive pulmonary disease, unspecified Office Visit 06/28/2018 8:57a [facility] Delia J96.01 Acute respiratory Assoc,jcarlos Brooks M.D. failure with Hospitalists hypoxia J44.1 Chronic obstructive pulmonary disease w (acute) exacerbation Office Visit 06/27/2018 8:56a [facility] Lor Lin J96.01 Acute respiratory Assoc,pc Todd, M.D. failure with Hospitalists hypoxia J44.1 Chronic obstructive pulmonary disease w (acute) exacerbation Office Visit 06/26/2018 [facility] Lisbet J44.1 Chronic 8:56a Assoc,pc MD Ailyn obstructive Hospitalists pulmonary disease w (acute) exacerbation Office Visit 06/19/2018 [facility] Garrison Frank. G35 Multiple sclerosis 11:15a Services Of [facility] Alba Mckeon Z79.899 Other terminal manager (current) drug therapy Office Visit 06/13/2018 9:15a Pulmonology And Laquita J44.9 Chronic Sleep Services Of MD Mynor obstructive [facility] pulmonary disease, unspecified R06.83 Snoring Office Visit 03/22/2018 11:00a [facility] Internal Jeni Gardner, R06.02 Shortness of Medicine N.P. breath I49.3 Ventricular premature depolarization Z87.891 Personal history of nicotine dependence J44.1 Chronic obstructive pulmonary disease w (acute) exacerbation Office Visit 12/26/2017 [facility] Internal Jeni Gardner, I10 Essential 2:40p Medicine N.P. (primary) hypertension Office Visit 12/10/2017 [facility] Grzegorz West MD J44.9 Chronic 10:37a Assoc,pc obstructive Hospitalists pulmonary disease, unspecified E78.5 Hyperlipidemia, unspecified G35 Multiple sclerosis Office Visit 12/09/2017 10:37a [facility] Darlene J44.9 Chronic Assoc,pc Emory Marks, obstructive Hospitalists TRANSCRIBING OPERATOR HEAD pulmonary disease, unspecified G35 Multiple sclerosis E78.5 Hyperlipidemia, unspecified Office Visit 12/08/2017 [facility] J44.1 Chronic 10:36a Assoc,pc PENELOPE Wilson obstructive Hospitalists pulmonary disease w (acute) exacerbation E78.5 Hyperlipidemia, unspecified G35 Multiple sclerosis Office Visit 11/23/2017 2:00p [facility] Internal Hugo Rogers Z01.818 Encounter for other Medicine TRANSCRIBING OPERATOR HEAD preprocedural examination M16.12 Unilateral primary osteoarthritis, left hip J44.9 Chronic obstructive pulmonary disease, unspecified G35 Multiple sclerosis Office Visit 11/14/2017 Pulmonology And Laquita Z01.811 Encounter for 9:30a Sleep Services Of MD Mynor preprocedural [facility] respiratory examination M16.11 Unilateral primary osteoarthritis, right [...] osteoarthritis, left hip Office Visit 10/21/2017 4:00p [facility] Internal Jeni Gardner, H81.10 Benign paroxysmal Medicine N.P. vertigo, unspecified ear M25.552 Pain in left hip J44.9 Chronic obstructive pulmonary disease, unspecified H61.21 Impacted cerumen, right ear Office Visit 03/16/2017 10:30a Neurohospitalist Garrison Miller5 [facility] Alba Mckeon sclerosis Z79.899 Other detention (current) drug therapy Office Visit 01/07/2017 11:00a [facility] Internal Shane Andrea R60.0 Localized edema Medicine - Alba Wing [facility] Office Visit 12/28/2016 1:00p [facility] Internal Jeni Gardner, M54.31 Sciatica , right Medicine N.P. side J44.9 Chronic obstructive pulmonary disease, unspecified Office Visit 08/04/2016 2:20p [facility] Internal Jeni Gardner, M79.661 Pain in right Medicine N.P. lower leg Z86.718 Personal history of other venous thrombosis and embolism Office Visit 07/22/2016 10:40a [facility] Internal Jeni Gardner M54.2 Cervicalgia Medicine N.P. Office Visit 07/07/2016 10:30a Orthopedic Akosua Thomas, M25.552 Pain in left hip Services Of MAggie. C.M.A. M16.12 Unilateral primary osteoarthritis, left hip Office Visit 06/22/2016 10:00a [facility] Internal Jeni Gardner, S39.013A Strain of Medicine N.P. muscle, fascia and tendon of pelvis, init encntr R10.32 Left lower quadrant pain Office Visit 04/16/2016 2:40p [facility] Internal Hugo Rogers, J06.9 Acute upper Medicine TRANSCRIBING OPERATOR HEAD respiratory infection, unspecified J44.9 Chronic obstructive pulmonary disease, unspecified Office Visit 03/02/2016 Neurohospitalist Noemi Damico, G35 Multiple 9:30a Clinic TRANSCRIBING OPERATOR HEAD sclerosis J44.9 Chronic obstructive pulmonary disease, unspecified S39.013A Strain of muscle, fascia and tendon of pelvis, init encntr Z79.899 Other detention (current) drug therapy Office Visit 02/09/2016 11:20a [facility] Internal Jeni Gardner, Z23 Encounter for Medicine N.P. immunization S39.013A Strain of muscle, fascia and tendon of pelvis, init encntr M81.0 Age-related osteoporosis w/o current pathological fracture Office Visit 10/24/2015 1:20p [facility] Internal Jeni Gardner, M81.0 Age- related Medicine N.P. osteoporosis w/o current pathological fracture Office Visit 08/12/2015 10:40a [facility] Internal Jeni Gardner, Z00.00 Encntr for general Medicine N.P. adult medical exam w/o abnormal findings Z12.31 Encntr screen mammogram for malignant neoplasm of breast J44.9 Chronic obstructive pulmonary disease, unspecified E78.0 Pure hypercholesterolemia G35 Multiple sclerosis M85.89 Oth disrd of bone density and structure, multiple sites F17.201 Nicotine dependence, unspecified, in remission F32.9 Major depressive disorder, single episode, unspecified Z23 Encounter for immunization Office Visit 04/30/2015 4:20p [facility] Internal Hugo Rogers, J20.9 Acute bronchitis, Medicine TRANSCRIBING OPERATOR HEAD unspecified J44.1 Chronic obstructive pulmonary disease w (acute) exacerbation Office Visit 11/26/2014 10:00a [facility] Garrison S. 340 Multiple Services Of Oj Mckeon M.D. Sclerosis 780.79 Malaise And Fatigue Other Office Visit 06/07/2014 10:00a [facility] Internal Jeni Gardner, 496 COPD Airway Medicine N.P. Obstruction Chronic Not Class Elsewhere 724.5 Backache Unspec 733.00 Osteoporosis Unspec 720.2 Sacroiliitis Not Elsewhere Classified Office Visit 06/05/2014 2:20p [facility] Internal Jeni Gardner, 724.5 Backache Unspec Medicine N.P. 720.2 Sacroiliitis Not Elsewhere Classified 728.85 Spasm Muscle Office Visit 04/10/2014 11:20a [facility] Internal Jeni Gardner, 496 COPD Airway Medicine N.P. Obstruction Chronic Not Class Elsewhere Office Visit 03/27/2014 9:00a [facility] Internal Jeni Gardner, 496 COPD Airway Medicine N.P. Obstruction Chronic Not Class Elsewhere Office Visit 03/21/2014 11:40a [facility] Internal Jeni Gardner, 496 COPD Airway Medicine N.P. Obstruction Chronic Not Class Elsewhere Office Visit 11/27/2013 9:00a [facility] Internal Jeni Gardner, 272.4 Hyperlipidemia Other Medicine N.P. Unspec 564.00 Constipation Unspecified Office Visit 10/23/2013 2:15p [facility] Garrison S. 340 Multiple Services Of [facility] Alba Mckeon Sclerosis Office Visit 10/10/2013 2:00p [facility] Internal Maryjo Joshi, V70.0 Examination Medicine M.D., FACP General Medical Routine AT Health Care Facility V70.0 Examination General Medical Routine AT Health Care Facility V76.10 Screening For Malignant Neoplasm Breast 340 Multiple Sclerosis 496 COPD Airway Obstruction Chronic Not Class Elsewhere 530.81 Esophageal Reflux 300.00 Anxiety State Unspec 564.1 Irritable Bowel Syndrome 272.0 Hypercholesterolemia Pure 575.8 Gallbladder Disorders Other Spec Office Visit 09/04/2013 11:20a [facility] Internal Maryjo Joshi, 496 COPD Airway Medicine M.D., FACP Obstruction Chronic Not Class Elsewhere 530.81 Esophageal Reflux 575.8 Gallbladder Disorders Other Spec Office Visit 08/16/2013 3:40p [facility] Internal Maryjo Joshi, 496 COPD Airway Medicine M.D., FACP Obstruction Chronic Not Class Elsewhere 530.81 Esophageal Reflux Office Visit 04/19/2013 4:00p [facility] Internal Maryjo Joshi, 466.0 Bronchitis Acute Medicine M.D., FACP Office Visit 02/22/2013 9:00a [facility] Internal Maryjo Joshi, 564.1 Irritable Bowel Medicine M.D., FACP Syndrome 496 COPD Airway Obstruction Chronic Not Class Elsewhere 300.00 Anxiety State Unspec 340 Multiple Sclerosis Office Visit 11/06/2012 11:20a [facility] Internal Maryjo Joshi, 715.14 Osteoarthrosis Medicine M.Viri, FACP Localized Prim Hand 780.79 Malaise And Fatigue Other Office Visit 10/16/2012 11:20a [facility] Internal Maryjo Madelyn, 780.79 Malaise And Medicine Alba, FACP Fatigue Other 785.6 Lymph Nodes Enlargement Office Visit 10/04/2012 2:45p [facility] Garrison MonikaWendy 340 Multiple Services Of Oj Mckeon M.D. Sclerosis Office Visit 05/01/2012 9:40a [facility] Internal Jeni Kendra, 340 Multiple Medicine N.P. Sclerosis 380.4 Impacted Cerumen 466.0 Bronchitis Acute Office Visit 04/27/2012 10:40a [facility] Internal Jeni Varn, 466.0 Bronchitis Acute Medicine N.P. 380.4 Impacted Cerumen Office Visit 03/03/2012 3:40p [facility] Internal Jeni Varn, 466.0 Bronchitis Acute Medicine N.P. Office Visit 11/08/2011 8:40a [facility] Internal Jeni Varn, 268.9 Vitamin D Medicine N.P. Deficiency Unspec 272.4 Hyperlipidemia Other Unspec 305.1 Tobacco Use Disorder Office Visit 09/06/2011 4:20p [facility] Internal Abida 528.6 Oral Soft Tissue Medicine Alba Wadsworth Exlud Ginviva & Tongue Leukoplakia Mucosa 923.10 Contusion Forearm Office Visit 08/10/2011 2:20p [facility] Internal Maryjolisa Joshi, V70.0 Examination Medicine Alba, FACP General Medical Routine AT Health Care Facility V76.10 Screening For Malignant Neoplasm Breast 496 COPD Airway Obstruction Chronic Not Class Elsewhere 733.90 Bone & Cartilage Disorder Unspec 305.1 Tobacco Use Disorder 401.1 Hypertension Benign 780.52 Insomnia Unspecified v72.60 Laboratory Examination, Unspecified Office Visit 04/15/2011 DO Not Use Jeni Varn, 723.1 Cervicalgia 10:00a [facility] N.P. Office Visit 04/13/2011 DO Not Use [...] Visit 12/03/2010 3:00p DO Not Use Maryjo Madelyn, 496 COPD Airway Gavino Willis, FACP Obstruction Chronic Not Class Elsewhere Office Visit 04/23/2010 2:45p DO Not Use Maryjo Madelyn, 340 Multiple Sclerosis Gavino Willis, FACP 788.43 Nocturia 309.0 Adjustment Disorder With Depression 496 COPD Airway Obstruction Chronic Not Class Elsewhere Office Visit 03/25/2010 DO Not Use Abida 786.50 Pain Chest Unspec 9:00a Gavino Wadsworth M.D. 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 Office Visit 04/24/2009 DO Not Use Maryjo Madelyn, 496 COPD Airway 2:00p Gavino Willis, FACP Obstruction Chronic Not Class Elsewhere 340 Multiple Sclerosis V04.81 Need For Prophylactic Vaccination & Inoculation/Influenza Office Visit 04/04/2009 4:30p DO Not Use Marcela, 708.9 Urticaria Gavino Mckinney M.D. Unspec 496 COPD Airway Obstruction Chronic Not Class Elsewhere 340 Multiple Sclerosis Office Visit 03/19/2009 DO Not Use Jeni Roycen, 461.9 Sinusitis Acute 2:30p Maintenance Supervisor [employer] N.P. 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 Radial Styloid 719.41 Pain Joint Shoulder Region Office Visit 06/19/2008 DO Not Use Jeni Varn, 466.0 Bronchitis Acute 4:00p Maintenance Supervisor [employer] N.P. Office Visit 04/26/2008 DO Not Use Maryjo Joshi, 496 COPD Airway 3:45p Gavino Willis, FACP Obstruction Chronic Not Class Elsewhere 466.0 Bronchitis Acute Office Visit 04/15/2008 DO Not Use Jeni Varn, 611.72 Lump Or Mass 3:30p Maintenance Supervisor [employer] N.P. 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 Infection Site Not Spec Office Visit 03/28/2007 Neurosurgery Celestino Mercado 724.2 Lumbago 3:30p Services Of Oj Allen M.D. Office Visit 02/07/2007 DO Not Use Jeni Gardner, 564.00 Constipation 11:45a Maintenance Supervisor [employer] N.P. Unspecified 465.9 URI Upper Respiratory Infections Acute Unspec Sites 708.9 Urticaria Unspec Office Visit 01/24/2007 3:30p Neurosurgery Celestino Mercado Services Of O[facility] Allen M.D. Office Visit 12/29/2006 2:30p DO Not Use Maryjolisa Joshi, 780.79 Malaise And Gavino Willis, FACP Fatigue [...] FACP Sclerosis 724.2 Lumbago Office Visit 07/08/2006 Horseliban Mercado 722.10 Intervertebral Disc 11:00a Progressive Alba Allen Displacement Lumbar Neurosurgery W/O Myelopathy Office Visit 07/04/2006 DO Not Use Jeni 720.2 [facility]iliitis [facility] Elsewhere Classified 719.45 Pain Joint Pelvic Region & Thigh 340 Multiple Sclerosis 564.00 Constipation Unspecified Office Visit 06/23/2006 2:30p DO Not Use Maryjolisa Joshi, V70.0 [facility] General Medical Routine [facility] 340 Multiple Sclerosis V06.1 Nmrzjcavtc-Fwqurhv-Ftqbtnoz Combined (DTaP) Office Visit 12/30/2005 11:15a DO Not Use Maryjo Madelyn, 610.0 Cyst Breast Gavino Willis, FACP Solitary 340 Multiple Sclerosis 272.4 Hyperlipidemia Other Unspec Plan of Treatment Future Appointment(s):10/02/2018 3:30 pm - [facility]2018 1:45 pm - Garrison Mckeon M.D. at [facility]08/22/2018 3:20 pm - Jeni Gardner, N.P. at [facility] Internal Offaxnid10/05/2019 2:20 pm - Jeni Gardner, N.P. at [facility] Internal Lybiffuj64/18/2019 1:00 pm - Karli Brito NP at [facility]12/11/2018 11:30 am - Laquita Lowe MD at [facility]ology [facility]08/18/2018 - Akosua Guzman M.D.M25.552 Pain in left hipFollow up:Follow up: 6 ytxjyO37.12 Unilateral primary osteoarthritis, left hip
--- OUTSIDE RECORDS SUMMARY | 2018-08-20 12:54 | XMS REPORT | Continuity of Care Document ---
:1945 External Reference #:[id number] Author Name Casie Solis Care Team Providers Name Role Phone Abida Wadsworth MD Primary Care Physician Unavailable Payers Date Identification Numbers Payment Provider Subscriber Effective: 2012 Policy Number: [id number] Medicare Nabila Cleary PayID: [id number] [address] [place] [address] Effective: 2016 Policy Number: [id number] [employer] Nabila Cleary Expires: 2017 PayID: [id number] [address] [place] [address] Effective: 2012 Policy Number: [id number] [employer] Nabila Cleary Expires: 2016 PayID: [id number] [address] [place] [address] Effective: 2009 Policy Number: [id number] BS Of [facility] Nabila Cleary Expires: 2011 Group Number: [id number] [address] PayID: [id number] [place] [address] [address]: [id number] 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 nebulizer as needed Vitamin C Active Chewtabs 500mg 1 po qd Unknown / Fish Oil Active Capsules 1200mg 1 po qd Unknown Lyrica Active Capsules 100mg 90cap take 1 Jeni /0000 s tablet by Varn, N.P. mouth 3 times daily. max/day=3 mdd 3 Prednisone 07/26 Hx Tablets 5mg 49tab 4 tab daily J44.9 Karli /2019 s for 1 week, Daryl, - then 2 tab TOWEL FOLDER 08/15 daily for week, then 1 tab [...] 03/16 Hx Soln 40mg/ml 12ml inject 1 Garrison S Prefill syringe Mike, - Syringe under the [...] Thomas, - mouth twice M.D. 07/21 a Azithromycin 04/16 Hx Tablets 250mg 6tabs 2 tabs by J44.9 Hugo mouth every Sue, TOWEL FOLDER - day x1 day, 04/21 1 tab by mouth every day x 4 days Venlafaxine HCL 08/11 Hx Caps ER 75mg 30cap 1 by mouth F32.9 Jeni 24HR s every day Varn, N.P. - 03/15 Levaquin 05/15 Hx Tablets 500mg 10tab 1 by mouth Hugo s every day Sue TOWEL FOLDER - 05/25 Prednisone 05/05 Hx Tablets 10mg 16tab take 4 tab s daily x 1 Sue TOWEL FOLDER - day then 3 05/15 tab daily x 2 days, then 2 tab daily for 2 day, and 1 tab for 2 day. Azithromycin 04/30 Hx Tablets 250mg 6tabs 2 tabs by J20.9 Hugo mouth every Sue, TOWEL FOLDER - day x1 day, 05/06 1 tab mouth every day x 4 days Tramadol HCL 06/05 Hx Tablets 50mg 30tab 1 tablet 724.5 s three to Kendra, N.P. - four times 06/19 daily needed Spacer 03/27 Hx 2unit Use this 496 s with your Vargaviota, N.P. - inhalers 11/25 Omeprazole 08/16 Hx [...] - cough 10/04 Ergocalciferol 11/07 Hx Capsules 69243Ypec 8caps one po once 268.9 weekly Deuce Joshi M.D., FACP 01/06 Advair Diskus 06/16 Hx Aerosol 250-50mcg 180un inhale 1 /Dose its dose by Varn, N.P. - mouth twice 10/21 a day Estrace 03/15 Hx Cream 0.1mg/GM 42.50 1 596.9 0gm application Madelyn - two times M.DWendy, FACP 04/27 Levofloxacin 02/03 Hx Tablets 500mg 7tabs 1 po qd 496 Deuce Joshi M.D., FACP 04/15 Advair Diskus 02/03 Hx Aerosol 500-50mcg 1unit 1 puff bid /Dose s Deuce Joshi M.D., FACP 06/16 Alprazolam 12/28 Hx Tablets 0.25mg 30tab 1 tab three 300.00 s times daily Madelyn, - as needed M.D., [facility] 08/09 Prednisone 12/10 Hx Tablets 10mg 15tab 1 tablet by 496 s mouth every Madelyn, - morning for M.D., [facility] 02/03 one week - then 1/2 tablet by mouth for one week - then 1/4 tablet by mouth for one week Robitussin ac 12/10 Hx Solution 4Oz 1-2 tsp at 496 bedtime as Madelyn, - needed M.D., [facility] 08/08 Wellbutrin SR 12/10 Hx Tablets ER 100mg 30tab 1 by mouth 496 12HR s every Am Deuce Joshi M.D., [facility] 02/03 Nebulizer 12/10 Hx use as J44.9 directed Deuce Joshi M.D., [facility] 07/18 Levofloxacin 12/03 Hx Tablets 500mg 7tabs 1 tab by 49 mouth every Madelyn, - day M.D., [facility] 12/10 Prednisone 12/03 Hx Tablets 5mg 50tab 4 tabs po qd 496 s x 4d then 3 Madelyn, - tabs po qd x M.D., [facility] 12/10 3d then tabs po qd [...] as Pack s directed Deuce Joshi M.D., [facility] 03/25 Effexor XR 12/01 Hx Caps ER 150mg 90cap 1 tablet 24HR s daily Deuce Joshi M.D., [facility] 02/22 Soma 12/01 Hx Tablets 350mg 90tab 1 tab by Garrison Wendy s mouth q6 Mike, - hours as M.DWendy 06/19 needed mdd Advair Diskus Hx 250-50mcg 3mont 1 inhalation Maryjo /0000 /Dose hs twice daily Deuce Joshi M.D., [facility] 02/03 Combivent Hx 103-18mcg 1 Inhalation Madelyn, / /Act Twice A Day MD Maryjo - as Needed 09/14 Cheratussin ac Hx 100-10mg/ 118ml 1-2 tsp po Maryjo 0000 5ML qhs prn Deuce Joshi M.D., [facility] 12/01 Azithromycin Hx 250mg 6unit 2 tabs po Maryjo /0000 s day 1 then 1 Madelyn, - po qd til M.Viri, [facility] 12/01 Alendronate Hx Tabs 70mg 4tabs take 1 Maryjo Sodium tablet by Madelyn - mouth every M.D., [facility] Lipitor Hx Tablets 20mg 90tab 1 po qd 272.4 Jeni /0000 s Varn, N.P. - 01/14 Copaxone Hx Soln 20mg/ml 90uni 1 inj daily S. Prefill ts Mike, - Syringe M.DWendy 03/16 Baclofen Hx Tablets 5mg 1 tablet bid Unknown 0000 as needed - 06/19 Warfarin Sodium Hx Tablets 1mg [place], /0000 MD Suleiman - 06/12 Warfarin Sodium Hx Tablets 3mg [place], 0000 MD Suleiman - 06/12 Oxycodone-Aceta Hx Tablets [...] Code Status Date Vaccine Reaction Lot # [id number] Given 02/09/2016 Influenza Virus Vaccine, no reaction noted [id number] Quadrivalent, Split, .... hh Preservative Free 91558 Given 08/12/2015 Pneumococcal Conjugate [id number] Vaccine 13 Valent For Intramuscular Use Q2039 Given 03/05/2015 Flu Vaccine NOS 29468 Given 02/26/2014 Fluzone High Dose Q2037 Given 04/18/2012 Fluvirin Im 3Yrs And Older Q2037 Given 04/18/2012 Fluvirin Im 3Yrs And Older [id number] 08704 Given 04/18/2012 Zoster (Zostavax) [id number] 14223 Given 02/03/2011 Influenza Virus 3Yrs & Over [id number] 62489 Given 03/20/2010 Influenza Virus 3Yrs & Over [id number] 46291 Given 04/24/2009 Administration Swine Flu Shot 24240 Given 04/24/2009 Influenza Virus Vaccine, Pandemic Formulation 88728 Given 02/24/2009 Influenza Virus 3Yrs & Over 77500 Given 02/16/2008 Pneumonia Vaccine 48222 Given 02/16/2008 Pneumonia Vaccine 94599 Given 02/16/2008 Influenza Virus 3Yrs & Over 08086 Given 04/18/2007 Influenza Virus 3Yrs & Over 74872 Given 06/23/2006 Tdap - Tetanus/Diptheria/Acellular Pertussis 13271 Given 06/23/2006 Tdap - Tetanus/Diptheria/Acellular Pertussis 64612 Given 04/04/2006 Influenza Virus 3Yrs & Over Vital Signs Date Vital Result Comment 08/16/2018 2:36pm Height 67 inches 5'7" Weight [...] Diastolic 73 mmHg O2 % BldC Oximetry 10095 % BMI (Body Mass Index) 18.2 kg/m2 [...] Test Result H/L Range Note Laboratory test [facility] B-Type 15 pg/mL <=100 finding [address] [place] [address] Peptide BNP [phone] Inr/Protime [facility] Inr 0.86 N 0.77-1.[address] [place] [address] [phone] Laboratory test [facility] Partial Thrombo 27.9 seconds N 26.0-36.3 finding [address] [place] [address] [phone] Comp Metabolic [facility] Sodium 139 mmol/L N 135- 145 Panel [address] [place] [address] [phone] Potassium 4.2 mmol/L N 3.5-5.0 Chloride 102 [...] Egfr 105.0 >60 1 Laboratory test 06/25/2018 [facility] C Reactive < 1.00 mg/L N <8.[address] [place] [address] [phone] Troponin-I (TnI) 0.00 ng/mL <0.04 2 Lactic Acid 1.6 mmol/L N 0.5-2.0 3 CBC Auto Diff 11/25/2017 [facility] White Blood 5.7 10^3/uL N 3.5-10.[address] [place] [address] [phone] Red Blood Count 4.68 10^6/uL N 4.00-5.40 [...] Cells % 0 Comp Metabolic Panel 11/25/2017 [facility] Sodium 140 mmol/L N 135-145 [address] [place] [address] [phone] Potassium 4.1 mmol/L N 3.5-5.0 Chloride 103 [...] Egfr 151.1 >60 4 Urinalysis Profile 11/25/2017 [facility] Urine Color Yellow [address] [place] [address] [phone] Urine Appearance Clear Urine Specific [place] 1.017 N 1.010-1.030 Urine pH 6.0 N 5-9 Urine Urobilinogen Negative Negative Urine Ketones Negative Negative Urine Protein Negative Negative Urine Leukocytes Negative Negative Urine Blood Negative Negative Urine Nitrite Negative Negative Urine Bilirubin Negative Negative Urine Glucose Negative Negative Inr/Protime 11/25/2017 [facility] Inr 0.89 N 0.77-1.02 [address] [place] [address] [phone] Laboratory test 11/25/2017 [facility] Partial 27.4 seconds N 26.0-36.[address] [place] [address] PTT [phone] Type & Screen 11/25/2017 [facility] Patient O Positive [address] [place] [address] [phone] Antibody Screen NEGATIVE Urine Culture And 11/25/2017 [facility] Urine Culture SEE RESULT [address] [place] [address] [phone] Urine Culture And 07/20/2017 [facility] Urine Culture SEE RESULT [address] [place] [address] [phone] Laboratory test 10/01/2016 [facility] Surgical SEE RESULT 7 , [address] Pathology BELOW [place], [place] [address] [phone] CBC Auto Diff 02/06/2016 [facility] White Blood 5.2 10^3/uL N 3.5-[address] Count 0.8 [place], [place] [address] [phone] Red Blood Count 4.54 10^6/uL N 4.0-5.4 [...] % 0 N Comp Metabolic Panel 02/06/2016 [facility] Sodium 137 mmol/L N 133-145 [address] [place] [address] [phone] Potassium 4.2 mmol/L N 3.5-5.0 Chloride 103 [...] N >60 9 Comp Metabolic Panel 11/13/2013 [facility] Sodium 138 mmol/L N 133-145 10 [address] [place] [address] [phone] Potassium 4.1 mmol/L N 3.7-5.6 Chloride 104 [...] N >60 11 Vitamin D, 25 11/13/2013 [facility] 25-Hydroxy Vitamin <4.0 ng/ mL N Hydroxy [address] D2 [place], [place] [address] [phone] 25-Hydroxy Vitamin D3 28 ng/mL N 25-Hydroxy Vitamin D Total 28 ng/mL N 12 Lipid Profile 11/13/2013 [facility] Triglycerides 53 mg/dL N 13 (Trig/Chol/HDL) [address] [place] [address] [phone] Cholesterol 286 mg/dL N 14 HDL Cholesterol 73.8 mg/dL N 15 LDL Cholesterol 202 mg/dL N 16 Laboratory 11/13/2013 [facility] Hepatitis C Nonreactive N Nonreactive test finding [address] [place] [address] [phone] Basic 08/16/2013 [facility] Sodium 135 mmol/L N 133-[address] [place] [address] [phone] Potassium 5.2 mmol/L N 3.7-5.6 Chloride 99 mmol/L Low 101-111 Co2 Carbon Dioxide 31 mmol/L N 22-32 Anion Gap 5 mmol/L N 2-11 Glucose 73 mg/dL N 70-100 Blood Urea Nitrogen 13 mg/dL N 6-24 Creatinine 0.46 mg/dL Low 0.51-0.95 BUN/Creatinine Ratio 28.3 High 8-20 Calcium 9.6 mg/dL N 8.6-10.3 Egfr Non- 135.9 N >60 Egfr 174.8 N >60 17 Laboratory test 10/16/2012 [facility] TSH (Thyroid 2.25 0.34- 5.[address] Stimulating miu/[place] [address] Horm) [phone] CBC With Manual 10/16/2012 [facility] White Blood 5.9 4.8- 10.[address] Count 10^3/[place] [address] [phone] Red Blood Count 4.46 10^6/uL 4.0-5.4 Hemoglobin [...] RBC Morphology Normal Normal Laboratory test 10/16/2012 [facility] LDH 190 U/L High 95-185 finding [address] [place] [address] [phone] Comp Metabolic 10/16/2012 [facility] Sodium 138 mmol/L 133- 145 Panel [address] [place] [address] [phone] Potassium 4.0 mmol/L 3.5-5.0 Chloride 103 mmol/L [...] Egfr 159.2 >60 18 Laboratory test 10/16/2012 [facility] C Reactive < 0.5 mg/dL Less than finding [address] Protein 0.5 [place] [address] [phone] Erythrocyte Sed Rate 16 mm/Hr 0-40 Vitamin D, 25 11/01/2011 [facility] 25-Hydroxy Vitamin <4.0 ng/ mL () Hydroxy [address] D2 [place] [address] [phone] 25-Hydroxy Vitamin D3 22 ng/mL () 25-Hydroxy Vitamin D Total 22 ng/mL Abnormal () 19 Vitamin D 1,25 11/01/2011 [facility] Vitamin D, 1,25 63 pg/mL 18-78 20 And Vitamin D,[address] [place] [address] [phone] Laboratory test 11/01/2011 [facility] TSH 2.76 0.34-5.[address] MIU/[place] [address] [phone] Lipid Profile 11/01/2011 [facility] Triglyceride 43 mg/dL 40- 200 (Trig/Chol/HDL) [address] [place] [address] [phone] Cholesterol 246 mg/dL High Less Than 200 21 High Density Lipoprotein 90 mg/dL High 40-60 22 Cholesterol/HDL Ratio 2.73 AVERAGE 1-4.44 Low Density Lipoprotein 147 mg/dL High Less Than 100 23 Comp Metabolic Panel 11/01/2011 [facility] Sodium 134 mmol/L Low 135-[address] [place] [address] [phone] Potassium 4.2 mmol/L 3.5-5.0 Chloride 102 mmol/L [...] 159.7 > 60 26 Laboratory test 04/13/2011 [facility] Troponin-I 0.01 NG/ML 0 -0.06 [address] [place], [place] [address] [phone] CKMB 04/13/2011 [facility] CKMB In NG/ML 4.3 NG/ML High 0.3- 4.[address] [place], [place] [address] [phone] % CKMB 3 %MB 0-9 28 Laboratory test 04/13/2011 [facility] CPK (Creatine 134 U/L 0 -[address] Kinase) [place] [address] [phone] CBC Auto Diff 04/13/2011 [facility] White Blood 5.2 CUMM 4.8- 10.[address] [place] [address] [phone] Red Cell Count 4.39 CUMM 4.2-5.4 Hemoglobin [...] Basophils 0.1 0-0.2 Comp Metabolic Panel 04/13/2011 [facility] Sodium 138 mmol/L 135-[address] [place] [address] [phone] Potassium 3.9 mmol/L 3.5-5.0 Chloride 101 mmol/L [...] 159.7 > 60 31 Laboratory test 03/19/2011 [facility] TSH 2.89 MIU/ML 0.34- 5.[address] [place] [address] [phone] Vitamin D 1,25 03/19/2011 [facility] Vitamin D, 65 pg/mL 18- 78 32 And Vitamin D,[address] 1,25 [place] [address] [phone] Vitamin D, 25 03/19/2011 [facility] 25-Hydroxy <4.0 ng/mL () Hydroxy [address] Vitamin D2 [place] [address] [phone] 25-Hydroxy Vitamin D3 37 ng/mL () 25-Hydroxy Vitamin D Total 37 ng/mL () 33 Surgical 07/11/2006 [facility] Surgical [address] Pathology <SEE NOTE> [place] [address] [phone] 1 Because ethnic data is not always [...] troponins reflex immediate secondary confirmatory testing. 3 [facility] Severe Sepsis and Septic Shock Management Bundle [...] [address]: Akosua Guzman MD Acct: [id number] Unit: [id number] AGE: 71 Location: [facility] Re11/25/17 SEX: F Status: REG REF SPEC: [id number] CUCA: 11/25/17-[address]: Akosua Guzman MD REQ: [id number] RECD: 11/25/17 STATUS: RAIZA GUDINO DR: Hugo Rogers TOWEL FOLDER _ SOURCE: URINE SPDESC: ORDERED: Urine Culture QUERIES: Urine Source: Clean Catch Procedure Result Reported Site Urine Culture Final 11/26/17- 1312 ML No Growth (<1,000 CFU/mL) * - [facility] . END OF REPORT DEPARTMENT OF PATHOLOGY, [address] [place] [address] Kervin Read M.D. Director NO # [id number] SEE RESULT BELOW Name: NABILA CLEARY : [address]: Jeni Gadrner NP Acct: [id number] Unit: [id number] AGE: 71 Location: [facility] Re07/20/17 SEX: F Status: REG REF SPEC: [id number] CUCA: 07/20/17 [facility] DR: Jeni Gardner NP REQ: [id number] RECD: 07/20/17 STATUS: RAIZA GUDINO DR: Abida Wadsworth MD _ SOURCE: URINE SPDESC: ORDERED: Urine Culture Procedure Result Reported Site Urine Culture Final 07/22/17- 853 ML Organism 1 ESCHERICHIA COLI [place] Count >100,000 (Many) CFU/ML 1. ESCHERICHIA COLI [...] . END OF REPORT DEPARTMENT OF PATHOLOGY, [address] [place] [address] Kervin Read M.D. Director NO # [id number] SEE RESULT BELOW Name: NABILA CLEARY : [address]: Adrian España MD Acct: [id number] Unit: [id number] AGE: 70 Location: [facility] Re10/01/16 SEX: F Status: REG REF SPEC: [id number] CUCA: 10/01/16-11[address] [facility] [address]: Adrian España MD REQ: [id number] RECD: 10/01/16 STATUS: ZAFAR GUDINO DR: Dakota Gardner TOWEL FOLDER _ ORDERED: LEVEL 4/3 COMMENTS: [id number] FINAL DIAGNOSIS 1. Skin, left cheek superior, [...] performed at Main Lab DEPARTMENT OF PATHOLOGY, [address] [place] [address] Kervin Read M.D. Director [facility] # [id number] RUN DATE: 10/06/16 [facility] LAB LIVE PAGE 2 Patient: NABILA CLEARY [id number] (Continued) GROSS DESCRIPTION (Continued) Signed (signature on file) Fatuma Morrison MD 1331 END OF REPORT * ML=Testing performed at Main Lab DEPARTMENT OF PATHOLOGY, [address] [place] [address] Kervin Read M.D. Director [facility] # [id number] Because ethnic data is not always [...] levels within this range. Test Performed by: [address] [address] Pocket Grinder Operator: Brad Langley III, M.D. 13 Desirable <150 [...] normal population are 25-80 Test Performed by: [address] [address] Pocket Grinder Operator: Brad Langley III, M.D. 20 Test Performed by: [facility] - [address] [address] Pocket Grinder Operator: Brad Langley III, M.D. 21 CHOLESTEROL INTERPRETATION: [...] has been shown to interfere with the Jendrassik-Adrian method for measuring total bilirubin. Samples from [...] 0.06 ng/mL NOT SUPPORTIVE OF DIAGNOSIS OF WI 0.06 - 0.50 ng/ml INDETERMINATE: SUGGEST SERIAL STUDIES IF CLINICALLY INDICATED. Greater than 0.5 ng/mL CONSISTENT WITH DIAGNOSIS OF WI . 28 INTERPRETATION %CK-MB < 5% NOT SUPPORTIVE OF DIAGNOSIS OF WI 5 - <10% INDETERMINATE; SUGGEST SERIAL STUDIES IF CLINICALLY INDICATED 10% OR > CONSISTENT WITH DIAGNOSIS OF WI . 29 Anion gap measurement may be [...] <15 (or dialysis) 32 Test Performed by: [facility] Dpt of Lab Med and Pathology [address] [place] [address] Pocket Grinder Operator: Brad Langley III, M.D. 33 -- REFERENCE VALUE -- 25-HYDROXY D TOTAL (D2+D3) Optimum levels in the normal population are 25-80 Test Performed by: [facility] Dpt of Lab Med and Pathology [address] [place] [address] Pocket Grinder Operator: Brad Langley III, M.D. 34 ---- RUN DATE: 07/13/06 [facility] NMI LIVE PAGE 1 RUN TIME: 1521 Specimen Inquiry RUN USER: INTERFACE [id number] NABILA CLEARY 60/F <[place] [facility] [place] ([id number]) VIC Allen MD, Celestino Nguyen -- Specimen: [id number] SOUT Spec Date: 07/11/[address]: Celestino Sierra MD Spec Type: SURGICAL P Received: 07/12/06 Copies to: Maryjo Joshi MD SPECIMEN L3 -L4 DISC HISTORY PRE-OP DIAGNOSIS: L3-L4 disc protrusion GROSS DESCRIPTION The specimen is received in formalin labelled Nabila Cleary, L3-L4 Disc and consists of multiple fragments of hill-mixon fibrous soft tissue measuring 2.5 x 1.5 x 0.6 cm. in aggregate. Abatement Worker sections, one cassette. DIAGNOSIS Intervertebral disc, L3-4, discectomy - Intervertebral disc material. Signed Electronically by: KERVIN READ MD 07/13/06 -- -- DEPARTMENT OF PATHOLOGY, [address] [place] [address] [facility] Permit #[id number] [place] II, M.D. Director Kervin Read M.D. Scientist/Engineer Carroll irector -- Procedures Date Code Description Status 07/19/2018 49604 Polysomnography Sleep Staging 4+ Parameters Completed 03/22/2018 68879 EKG Tracing & Interpretation Completed 12/08/2017 25022 THR Total Hip Replacement Completed 12/08/2017 08768 THR Total Hip Replacement Completed 12/06/2017 72208 Diffusing Capacity Completed 12/06/2017 03881 Plethysmography Determination Lung Volumes & Per Completed Airway Resist 12/06/2017 24349 Pulmonary Function><Bronchodil Completed 11/27/2017 20714 Sleep Study Unattended,HRT Rate,Oxygen Sat,Resp Completed Effort/Airflow 11/23/2017 48534 EKG Tracing & Interpretation Completed 03/01/2017 35701 Admin Of Inj Completed 09/02/2016 25222 Admin Of Inj Completed 03/05/2016 75164 Chemotherpy Admin Subcutaneous/Im Non-Hormonal Completed Anti-Neoplastic 08/19/2015 79601687 Mammogram Completed 08/19/2015 410368113 Bone Mineral Density Test Completed 10/10/2013 63787 EKG Tracing & Interpretation Completed 08/22/2013 65320597 Mammogram Completed 11/11/2011 22514510 Colonoscopy Completed 08/10/2011 66619 EKG Tracing & Interpretation Completed 04/13/2011 11958 Noninvasive Ear Or Pulse Oximetry For Oxygen Completed Saturation 04/13/2011 26284 EKG Tracing & Interpretation Completed 03/18/2011 850035045 Bone Mineral Density Test Completed 02/18/2011 67716938 Mammogram Completed 02/10/2011 83338 Noninvasive Ear Or Pulse Oximetry For Oxygen Completed Saturation 02/03/2011 76276 Noninvasive Ear Or Pulse Oximetry For Oxygen Completed Saturation 12/10/2010 21670 Noninvasive Ear Or Pulse Oximetry For Oxygen Completed Saturation 12/03/2010 40861 Inhalation TX For Acute Airway Obstruction Completed W/Nebulizer/Inhaler 12/03/2010 78416 Noninvasive Ear Or Pulse Oximetry For Oxygen Completed Saturation 03/25/2010 51144 EKG Tracing & Interpretation Completed 09/24/2008 938033646 Bone Mineral Density Test Completed 09/12/2008 29407 EKG Tracing & Interpretation Completed 04/26/2008 07130 Noninvasive Ear Or Pulse Oximetry For Oxygen Completed Saturation 04/26/2008 23740 Noninvasive Ear Or Pulse Oximetry For Oxygen Completed Saturation 04/26/2008 43173 Inhalation TX For Acute Airway Obstruction Completed W/Nebulizer/Inhaler 09/06/2007 30253606 Mammogram Completed 07/13/2006 58284 EKG Tracing & Interpretation Completed 07/13/2006 93519 EKG Tracing & Interpretation Completed 07/11/2006 96543 Laminotomy W/Decomp NRV RT,One Interspace,Lumbar Completed 06/23/2006 92880 EKG Tracing & Interpretation Completed 04/29/2006 09492465 Mammogram Completed Encounters Type Date Location Provider Dx Diagnosis Office Visit 07/26/2018 [facility]ology [facility] Laquita Lowe MD R06.83 Snoring 11:00a [facility]44.9 Chronic obstructive pulmonary disease, unspecified Office Visit 06/28/2018 8:57a [facility] [place] J96.01 Acute respiratory Assoc,jcarlos Brooks M.D. failure with Hospitalists hypoxia J44.1 Chronic obstructive pulmonary disease w (acute) exacerbation Office Visit 06/27/2018 8:56a [facility] [place] J96.01 Acute respiratory Assoc,jcarlos Brooks M.D. failure with Hospitalists hypoxia J44.1 Chronic obstructive pulmonary disease w (acute) exacerbation Office Visit 06/26/2018 [facility] J44.1 Chronic 8:56a Assoc,jcarlos Robertson MD obstructive Hospitalists pulmonary disease w (acute) exacerbation Office Visit 06/19/2018 [facility] S. G35 Multiple sclerosis 11:15a [facility] Valencia79.899 Other [facility]ci (current) drug therapy Office Visit 06/13/2018 9:15a Pulmonology And Laquita J44.9 Chronic [facility] obstructive Child Care Cook pulmonary disease, unspecified R06.83 Snoring Office Visit 03/22/2018 11:00a [facility] Internal Jeni Kendra, R06.02 Shortness of Medicine N.P. breath I49.3 Ventricular premature depolarization Z87.891 Personal history of nicotine dependence J44.1 Chronic obstructive pulmonary disease w (acute) exacerbation Office Visit 12/26/2017 [facility] Jeni Cranegaviota, I10 Essential 2:40p Medicine N.P. (primary) hypertension Office Visit 12/10/2017 [facility] Grzegorz West MD J44.9 Chronic 10:37a Assoc,pc obstructive Hospitalists pulmonary disease, unspecified E78.5 Hyperlipidemia, unspecified G35 Multiple sclerosis Office Visit 12/09/2017 10:37a [facility] Darlene J44.9 Chronic Assoc,pc Emory Marks obstructive Hospitalists TOWEL FOLDER pulmonary disease, unspecified G35 Multiple sclerosis E78.5 Hyperlipidemia, unspecified Office Visit 12/08/2017 [facility] Bahgat J44.1 Chronic 10:36a Assoc,pc PENELOPE Wilson obstructive Hospitalists pulmonary disease w (acute) exacerbation E78.5 Hyperlipidemia, unspecified G35 Multiple sclerosis Office Visit 11/23/2017 2:00p [facility] Hugo Rogers, Z01.818 Encounter for other Medicine [employer]OW[employer] F[employer]DER preprocedural examination M16.12 Unilateral primary osteoarthritis, left hip J44.9 Chronic obstructive pulmonary disease, unspecified G35 Multiple sclerosis Office Visit 11/14/2017 Pulmonology And Laquita Z01.811 Encounter for 9:30a [facility] preprocedural [facility] respiratory examination M16.11 Unilateral primary osteoarthritis, right hip M16.12 Unilateral primary osteoarthritis, left hip J44.9 Chronic obstructive pulmonary disease, unspecified R06.83 Snoring Z12.2 Encntr screen for malignant neoplasm of respiratory organs Office Visit 10/31/2017 3:00p [facility] Services Akosua Guzman, M25.551 Pain in right Of [facility] M.D. hip M25.552 Pain in left hip M16.11 Unilateral primary osteoarthritis, right hip M16.12 Unilateral primary osteoarthritis, left hip Office Visit 10/21/2017 4:00p [facility] Jeni Gardner, H81.10 Benign paroxysmal Medicine N.P. vertigo, unspecified ear M25.552 Pain in left hip J44.9 Chronic obstructive pulmonary disease, unspecified H61.21 Impacted cerumen, right ear Office Visit 03/16/2017 10:30a Neurohospitalist Garrison Kuo [facility] Alba Mckeon sclerosis Z79.899 Other fci (current) drug therapy Office Visit 01/07/2017 11:00a [facility] Internal Shane Andrea R60.0 Localized edema Medicine - Alba Wing [facility] Office Visit 12/28/2016 1:00p [facility] Jeni Gardner M54.31 Sciatica , right Medicine N.P. side J44.9 Chronic obstructive pulmonary disease, unspecified Office Visit 08/04/2016 2:20p [facility] Jeni Gardner, M79.661 Pain in right Medicine N.P. lower leg Z86.718 Personal history of other venous thrombosis and embolism Office Visit 07/22/2016 10:40a [facility] Jeni Gardner M54.2 Cervicalgia Medicine N.P. Office Visit 07/07/2016 10:30a Orthopedic Akosua Guzman, M25.552 Pain in left hip Services Of Alba Savage M16.12 Unilateral primary osteoarthritis, left hip Office Visit 06/22/2016 10:00a [facility] Jeni Gardner, S39.013A Strain of Medicine N.P. muscle, fascia and tendon of pelvis, init encntr R10.32 Left lower quadrant pain Office Visit 04/16/2016 2:40p [facility] Hugo Rogers, J06.9 Acute upper Medicine [employer]OWEL F[employer]DER respiratory infection, unspecified J44.9 Chronic obstructive pulmonary disease, unspecified Office Visit 03/02/2016 Neurohospitalist Paul Loza5 Multiple 9:30a Clinic [employer]OW[employer] F[employer]DER sclerosis J44.9 Chronic obstructive pulmonary disease, unspecified S39.013A Strain of muscle, fascia and tendon of pelvis, init encntr Z79.899 Other fci (current) drug therapy Office Visit 02/09/2016 11:20a [facility] Jeni Gardner, Z23 Encounter for Medicine N.P. immunization S39.013A Strain of muscle, fascia and tendon of pelvis, init encntr M81.0 Age-related osteoporosis w/o current pathological fracture Office Visit 10/24/2015 1:20p [facility] Jeni Gardner, M81.0 Age- related Medicine N.P. 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 Sclerosis 780.79 Malaise And Fatigue Other Office Visit 06/07/2014 10:00a [facility] Jeni Gardner, 496 COPD Airway Medicine N.P. Obstruction Chronic Not Class Elsewhere 724.5 Backache Unspec 733.00 Osteoporosis Unspec 720.2 Sacroiliitis Not Elsewhere Classified Office Visit 06/05/2014 2:20p [facility] Jeni Gardner, 724.5 Backache Unspec Medicine N.P. 720.2 Sacroiliitis Not Elsewhere Classified 728.85 Spasm Muscle Office Visit 04/10/2014 11:20a [facility] Internal Jeni Gardner, 496 COPD Airway Medicine N.P. Obstruction Chronic Not Class Elsewhere Office Visit 03/27/2014 9:00a [facility] Jeni Gardner, 496 COPD Airway Medicine N.P. Obstruction Chronic Not Class Elsewhere Office Visit 03/21/2014 11:40a [facility] Internal Jeni Gardner, 496 COPD Airway Medicine N.P. Obstruction Chronic Not Class Elsewhere Office Visit 11/27/2013 9:00a [facility] Internal Jeni Gardner, 272.4 Hyperlipidemia Other Medicine N.P. Unspec 564.00 Constipation Unspecified Office Visit 10/23/2013 2:15p [place] [facility] Garrison SWendy 340 Multiple Services Of Oj Mckeon M.D. Sclerosis Office Visit 10/10/2013 2:00p [facility] Internal Maryjo Joshi, V70.0 Examination Medicine M.Viri, FACP General Medical Routine AT Health Care Facility V70.0 Examination General Medical Routine AT Health Care Facility V76.10 Screening For Malignant Neoplasm Breast 340 Multiple Sclerosis 496 COPD Airway Obstruction Chronic Not Class Elsewhere 530.81 Esophageal Reflux 300.00 Anxiety State Unspec 564.1 Irritable Bowel Syndrome 272.0 Hypercholesterolemia Pure 575.8 Gallbladder Disorders Other Spec Office Visit 09/04/2013 11:20a [facility] Maryjo Joshi, 496 COPD Airway Medicine Alba, FACP Obstruction Chronic Not Class Elsewhere 530.81 Esophageal Reflux 575.8 Gallbladder Disorders Other Spec Office Visit 08/16/2013 3:40p [facility] Maryjo Joshi, 496 COPD Airway Medicine MWaldemar, FACP Obstruction Chronic Not Class Elsewhere 530.81 Esophageal Reflux Office Visit 04/19/2013 4:00p [facility] Maryjo Joshi, 466.0 Bronchitis Acute Medicine Alba, FACP Office Visit 02/22/2013 9:00a [facility] Maryjo Joshi, 564.1 Irritable Bowel Medicine MWaldemar, FACP Syndrome 496 COPD Airway Obstruction Chronic Not Class Elsewhere 300.00 Anxiety State Unspec 340 Multiple Sclerosis Office Visit 11/06/2012 11:20a [facility] Maryjo Joshi, 715.14 Osteoarthrosis Medicine Alba, FACP Localized Prim Hand 780.79 Malaise And Fatigue Other Office Visit 10/16/2012 11:20a [facility] Maryjo Joshi, 780.79 Malaise And Medicine Alba, FACP Fatigue Other 785.6 Lymph Nodes Enlargement Office Visit 10/04/2012 2:45p Fuad Perez 340 Multiple Services Of Oj Mckeon M.D. Sclerosis Office Visit 05/01/2012 9:40a [facility] Jeni Gardner, 340 Multiple Medicine N.P. Sclerosis 380.4 Impacted Cerumen 466.0 Bronchitis Acute Office Visit 04/27/2012 10:40a [facility] Jeni Varn, 466.0 Bronchitis Acute Medicine N.P. 380.4 Impacted Cerumen Office Visit 03/03/2012 3:40p [facility] Jeni Varn, 466.0 Bronchitis Acute Medicine N.P. Office Visit 11/08/2011 8:40a [facility] Jeni Varn, 268.9 Vitamin D Medicine N.P. Deficiency Unspec 272.4 Hyperlipidemia Other Unspec 305.1 Tobacco Use Disorder Office Visit 09/06/2011 4:20p [facility] Abida 528.6 Oral Soft Tissue Medicine Alba Wadsworth Exlud Ginviva & Tongue Leukoplakia Mucosa 923.10 Contusion Forearm Office Visit 08/10/2011 2:20p [facility] Maryjo Madelyn, V70.0 Examination Medicine Alba, FACP General Medical [...] Elsewhere Office Visit 10/15/2009 DO Not Use Maryjolisa Joshi, 491.21 Bronchitis 4:15p Gavino Willis, FACP Obstructive Chronic W/Acute Exacerbation Office Visit 09/03/2009 DO Not Use Jeni Varn, 466.0 Bronchitis Acute 3:45p [facility] N.P. Office Visit 04/24/2009 DO Not Use Maryjo Madelyn, 496 COPD Airway 2:00p Gavino Willis, FACP Obstruction Chronic Not Class Elsewhere 340 Multiple Sclerosis V04.81 Need For Prophylactic Vaccination & Inoculation/Influenza Office Visit 04/04/2009 4:30p DO Not Use Marcela 708.9 Urticaria Gavino Mckinney M.D. Unspec 496 COPD Airway Obstruction Chronic Not Class Elsewhere 340 Multiple Sclerosis Office Visit 03/19/2009 DO Not Use Jeni Gardner, 461.9 Sinusitis Acute 2:30p [facility] N.P. 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 Radial Styloid 719.41 Pain Joint Shoulder Region Office Visit 06/19/2008 DO Not Use Jeni Varn, 466.0 Bronchitis Acute 4:00p [facility] N.P. Office Visit 04/26/2008 DO Not Use Maryjolisa Joshi, 496 COPD Airway 3:45p Gavino Willis, FACP Obstruction Chronic Not Class Elsewhere 466.0 Bronchitis Acute Office Visit 04/15/2008 DO Not Use Jeni Kendra, 611.72 Lump Or Mass 3:30p [facility] N.P. 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 Limb 356.9 Neuropathy Peripheral Hereditary Idiopathic Unspec Office Visit 06/13/2007 DO Not Use Jeni Varn, 599.0 UTI Urinary Tract 3:45p [facility] N.P. Infection Site Not Spec Office Visit 03/28/2007 Neurosurgery Celestino Mercado 724.2 Lumbago 3:30p Services Of Oj Allen M.D. Office Visit 02/07/2007 DO Not Use Jeni Gardner, 564.00 Constipation 11:45a [facility] N.P. Unspecified 465.9 URI Upper Respiratory Infections [...] Office Visit 09/20/2006 12:00p DO Not Use Maryjolisa Joshi, 780.79 Malaise [...] Office Visit 07/21/2006 3:00p DO Not Use Maryjolisa Joshi, 340 Multiple Gavino Willis, FACP Sclerosis 724.2 Lumbago Office Visit 07/08/2006 [facility] Celestino Mercado 722.10 Intervertebral Disc 11:00a Progressive Alba Allen Displacement Lumbar Neurosurgery W/O Myelopathy Office Visit 07/04/2006 DO Not Use Jeni 720.2 Sacroiliitis Not 4:00p [facility] Gardner, N.P. Elsewhere Classified 719.45 Pain Joint Pelvic Region & Thigh 340 Multiple Sclerosis 564.00 Constipation Unspecified Office Visit 06/23/2006 2:30p DO Not Use Maryjo Joshi, V70.0 Examination Gavino Willis, FACP General Medical Routine AT Health Care Facility 340 Multiple Sclerosis V06.1 Ibiqinztjg-Wjvkrym-Gkcmeeha Combined (DTaP) Office Visit 12/30/2005 11:15a DO Not Use Maryjo Madelyn, 610.0 Cyst Breast [facility]-Deysi Willis, [facility] Solitary 340 Multiple Sclerosis 272.4 Hyperlipidemia Other Unspec Plan of Treatment Future Appointment(s):11/21/2018 1:45 pm - Garrison Mckeon M.D. at [place] [facility]08/22/2018 3:20 pm - Jeni Gardner, N.P. at [facility] Internal Ddesmalf13/05/2019 2:20 pm - Jeni Gardner N.PWendy at [facility] Internal Sqxhwhnl11/05/2019 1:15 pm - Akosua Guzman M.D. 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
--- OUTSIDE RECORDS SUMMARY | 2018-08-20 12:55 | XMS REPORT | Continuity of Care Document ---
:1945 External Reference #:[id number] Author Name Kristindaniela Rosa Maria Care Team Providers Name Role Phone Abida Wadsworth MD Primary Care Physician Unavailable Payers Date Identification Numbers Payment Provider Subscriber Effective: 2012 Policy Number: [id number] Medicare Nabila Cleary PayID: [id number] [address] [place] [address] Effective: 2016 Policy Number: [id number] [employer] Nabila Cleary Expires: 2017 PayID: [id number] [address] [place] [address] Effective: 2012 Policy Number: [id number] [employer] Nabila Cleary Expires: 2016 PayID: [id number] [address] [place] [address] Effective: 2009 Policy Number: [id number] [facility] Of [facility] Nabila Cleary Expires: 2011 Group Number: [id number] [address] PayID: [id number] [place] [address] Policy Number: [id number] [facility] Nabila Cleary PayID: [id number] [address] [place] [address] Advance Directives Description No Information Available Problems Date Description Provider Status Onset: 12/03/2010 Chronic obstructive lung disease Maryjo Joshi M.D., [facility] Active Onset: 12/03/2010 Multiple sclerosis Maryjo Madelyn, M.D., FACP Active Onset: 03/15/2011 Tobacco user Maryjo Joshi M.D., [facility] Active Onset: 07/07/2016 Localized, primary osteoarthritis of Akosua Guzman M.D. 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 /2018 s prn spasms Alba Mckeon 10/31 Active Misc 1unit front Akosua s carloz Smith dx: Alba severe b/L hip OA Nebulizer 07/18 Active Device 1unit use three s times a day Varn, N.P. as needed Copaxone 03/16 Active Soln 40mg/ml 12ml inject 1 S. Prefill syringe Mike, Jaymie under the M.D. skin three times a [...] Solution 0.02% 60uni use twice J44.9 Jeni [place] /2010 ts daily in Varn, N.P. nebulizer as needed Vitamin C Active Chewtabs 500mg 1 po qd Fish Oil Active Capsules 1200mg 1 po qd Lyrica Active Capsules 100mg 90cap take 1 s tablet by Varn, N.P. mouth 3 times daily. max/day=3 mdd 3 Prednisone 03/22 Hx Tablets 10mg 40tab 4 tablets by R06. s mouth for 4 Varn, N.P. - days 3 04/07 tablets by mouth for 4 days 2 tablets by mouth for 4 days 1 tablet by mouth for 4 days Azithromycin 03/22 Hx Tablets 250mg 6tabs two tabs day R0. one, one Varn, N.P. - daily till [...] tabs by J44.9 Hugo mouth every Sue, WORKFORCE PL[employer]NER - day x1 day, 04/21 1 tab by mouth every day x 4 days Venlafaxine HCL 08/11 Hx Caps ER 75mg 30cap 1 by mouth F32.9 Jeni 24HR s every day Kendra, N.P. - 03/15 Levaquin 05/15 Hx Tablets 500mg 10tab 1 by mouth s every day Sue, WORKFORCE PLANNER - 05/25 Prednisone 05/05 Hx Tablets 10mg 16tab take 4 tab s daily x 1 Sue WORKFORCE PLANNER - day then 3 05/15 tab daily x 2 days, then 2 tab daily for 2 day, and 1 tab for 2 day. Azithromycin 04/30 Hx Tablets 250mg 6tabs 2 tabs by J20.9 Hugo mouth every Sue, WORKFORCE PLANNER - day x1 day, 05/06 1 tab [...] - cough 10/04 Ergocalciferol 11/07 Hx Capsules 15661Qiet 8caps one po once 268.9 weekly Deuce Joshi M.D., [facility] 01/06 Advair Diskus 06/16 Hx Aerosol 250-50mcg 180un inhale 1 /Dose its dose by Varn, N.P. - mouth twice 10/21 a day Estrace 03/15 Hx Cream 0.1mg/GM 42.50 1 596.9 0gm application Madelyn, - two times M.DWendy, FACP 04/27 Levofloxacin 02/03 Hx Tablets 500mg 7tabs 1 po qd 496 Deuce Joshi M.D., FACP 04/15 Advair Diskus 02/03 Hx Aerosol 500-50mcg 1unit 1 puff bid /Dose s Deuce Joshi M.D., FACP 06/16 Alprazolam 12/28 Hx Tablets 0.25mg 30tab 1 tab three 300.00 s times daily Madelyn, - as needed M.D., [facility] 08/09 Prednisone 12/10 Hx Tablets 10mg 15tab 1 tablet by 496 s mouth every Madelyn, - morning for M.D., [facility] 02/03 one week - then 1/2 tablet by mouth for one week - then 1/4 tablet by mouth for one week Robitussin ac 12/10 Hx Solution 4Oz 1-2 tsp at 496 bedtime as Madelyn, - needed M.DWendy, [facility] 08/08 Wellbutrin SR 12/10 Hx Tablets ER 100mg 30tab 1 by mouth 496 12HR s every Am Deuce Joshi M.D., [facility] 02/03 Nebulizer 12/10 Hx use as J44.9 directed Deuce Joshi M.D., [facility] 07/18 Levofloxacin 12/03 Hx Tablets 500mg 7tabs 1 tab by 496 mouth every Madelyn, - day M.D., [facility] 12/10 Prednisone 12/03 Hx Tablets 5mg 50tab 4 tabs po qd 496 s x 4d then 3 Madelyn, - tabs po qd x M.D., [facility] 12/10 3d then tabs po qd [...] as Pack s directed Deuce Joshi M.D., [facility] 03/25 Effexor XR 12/01 Hx Caps ER 150mg 90cap 1 tablet 24HR s daily Deuce Joshi M.D., [facility] 02/22 Soma 12/01 Hx Tablets 350mg 90tab 1 tab by Garrison . s mouth q6 Mike, - hours as M.DWendy 06/19 needed mdd Advair Diskus Hx 250-50mcg 3mont 1 inhalation Maryjo /0000 /Dose hs twice daily Deuce Joshi M.D., [facility] 02/03 Combivent Hx 103-18mcg 1 Inhalation Madelyn, /0000 /Act Twice A Day MD Maryjo - as Needed 09/14 Cheratussin ac Hx 100-10mg/ 118ml 1-2 tsp po Maryjo /0000 5ML qhs prn Deuce Joshi M.D., [facility] 12/01 Azithromycin Hx 250mg 6unit 2 tabs po Maryjo /0000 s day 1 then 1 Madelyn, - po qd til MWaldemar, [facility] 12/01 Alendronate Hx Tabs 70mg 4tabs take 1 Maryjo Sodium /0000 tablet by Madelyn, - mouth every M.D., [facility] Lipitor Hx Tablets 20mg 90tab 1 po qd 272.4 Jeni /0000 s Varn, N.P. - 01/14 Copaxone Hx Soln 20mg/ml 90uni 1 inj daily Garrison S. /0000 Prefill kavita Mckeon - Syringe M.Viri 03/16 Baclofen Hx Tablets 5mg 1 tablet [...] Code Status Date Vaccine Reaction Lot # [id number] Given 02/09/2016 Influenza Virus Vaccine, no reaction noted [id number] Quadrivalent, Split, .... hh Preservative Free 70029 Given 08/12/2015 Pneumococcal Conjugate [id number] Vaccine 13 Valent For Intramuscular Use Q2039 Given 03/05/2015 Flu Vaccine NOS 76957 Given 02/26/2014 Fluzone High Dose Q2037 Given 04/18/2012 Fluvirin Im 3Yrs And Older Q2037 Given 04/18/2012 Fluvirin Im 3Yrs And Older [id number] 41348 Given 04/18/2012 Zoster (Zostavax) [id number] 60323 Given 02/03/2011 Influenza Virus 3Yrs & Over [id number] 26130 Given 03/20/2010 Influenza Virus 3Yrs & Over [id number] 83410 Given 04/24/2009 Administration Swine Flu Shot 30372 Given 04/24/2009 Influenza Virus Vaccine, Pandemic Formulation 60464 Given 02/24/2009 Influenza Virus 3Yrs & Over 31157 Given 02/16/2008 Pneumonia Vaccine 78373 Given 02/16/2008 Pneumonia Vaccine 27330 Given 02/16/2008 Influenza Virus 3Yrs & Over 80244 Given 04/18/2007 Influenza Virus 3Yrs & Over 28039 Given 06/23/2006 Tdap - Tetanus/Diptheria/Acellular Pertussis 43301 Given 06/23/2006 Tdap - Tetanus/Diptheria/Acellular Pertussis 45399 Given 04/04/2006 Influenza Virus 3Yrs & Over Vital Signs Date Vital Result Comment 07/26/2018 11:00am Height 67 inches 5'7" Weight [...] Diastolic 73 mmHg O2 % BldC Oximetry 77360 % BMI (Body Mass Index) 18.2 kg/m2 [...] Test Result H/L Range Note Laboratory test 06/25/2018 [facility] C Reactive < 1.00 mg/L N <8.[address] [place] [address] [phone] Troponin-I (TnI) 0.00 ng/mL <0.04 1 Lactic Acid 1.6 mmol/L N 0.5-2.0 2 Laboratory test 06/25/2018 [facility] B-Type 15 pg/mL <=[address] [place] [address] Peptide BNP [phone] Inr/Protime 06/25/2018 [facility] Inr 0.86 N 0.77-1.[address] [place] [address] [phone] Laboratory test 06/25/2018 [facility] Partial Thrombo 27.9 N 26.0-36.[address] [place] [address] [phone] Comp Metabolic 06/25/2018 [facility] Sodium 139 mmol/L N 135- [address] [place] [address] [phone] Potassium 4.2 mmol/L N 3.5-5.0 Chloride 102 [...] Egfr Non- 86.8 >60 Egfr 105.0 >60 3 CBC Auto Diff 11/25/2017 [facility] White Blood 5.7 10^3/uL N 3.5-10.[address] [place] [address] [phone] Red Blood Count 4.68 10^6/uL N 4.00-5.40 [...] Cells % 0 Comp Metabolic Panel 11/25/2017 [facility] Sodium 140 mmol/L N 135-145 [address] [place] [address] [phone] Potassium 4.1 mmol/L N 3.5-5.0 Chloride 103 [...] Egfr 151.1 >60 4 Urinalysis Profile 11/25/2017 [facility] [place] [address] [phone] Urine Appearance Clear Urine Specific [place] 1.017 N 1.010-1.030 Urine pH 6.0 N 5-9 Urine Urobilinogen Negative Negative Urine Ketones Negative Negative Urine Protein Negative Negative Urine Leukocytes Negative Negative Urine Blood Negative Negative Urine Nitrite Negative Negative Urine Bilirubin Negative Negative Urine Glucose Negative Negative Inr/Protime 11/25/2017 [facility] Inr 0.89 N 0.77-1.02 [place] [address] [phone] Laboratory test 11/25/2017 [facility] Partial 27.4 seconds N 26.0-36.[address] [place] [address] PTT [phone] Type & Screen 11/25/2017 [facility] Patient [place] [address] [phone] Antibody Screen NEGATIVE Urine Culture And 11/25/2017 [facility] Urine Culture SEE RESULT [address] [place] [address] [phone] Urine Culture And 07/20/2017 [facility] Urine Culture SEE RESULT [address] [place] [address] [phone] Laboratory test 10/01/2016 [facility] Surgical SEE RESULT 7 , [address] [address] [phone] Comp Metabolic 02/06/2016 [facility] Sodium 137 mmol/L N 133- [address] [place] [address] [phone] Potassium 4.2 mmol/L N 3.5-5.0 Chloride 103 [...] N >60 Egfr 135.2 N >60 9 CBC Auto Diff 02/06/2016 [facility] White Blood 5.2 10^3/uL N 3.5-10.[address] [place] [address] [phone] Red Blood Count 4.54 10^6/uL N 4.0-5.4 [...] Nucleated Red Blood Cells % 0 N Vitamin D, 25 11/13/2013 [facility] 25-Hydroxy Vitamin <4.0 ng/ mL N [address] D2 [place] [address] [phone] 25-Hydroxy Vitamin D3 28 ng/mL N 25-Hydroxy Vitamin D Total 28 ng/mL N 11 Comp Metabolic Panel 11/13/2013 [facility] Sodium 138 mmol/L N 133-[address] [place] [address] [phone] Potassium 4.1 mmol/L N 3.7-5.6 Chloride 104 [...] 115.4 N >60 Egfr 148.4 N >60 12 Lipid Profile 11/13/2013 [facility] Triglycerides 53 mg/dL N 13 (Trig/Chol/HDL) [address] [place] [address] [phone] Cholesterol 286 mg/dL N 14 HDL Cholesterol 73.8 mg/dL N 15 LDL Cholesterol 202 mg/dL N 16 Laboratory 11/13/2013 [facility] Hepatitis C Nonreactive N Nonreactive test finding [address] [place] [address] [phone] Basic 08/16/2013 [facility] Sodium 135 mmol/L N 133-[address] [place] [address] [phone] Potassium 5.2 mmol/L N 3.7-5.6 Chloride 99 mmol/L Low 101-111 Co2 Carbon Dioxide 31 mmol/L N 22-32 Anion Gap 5 mmol/L N 2-11 Glucose 73 mg/dL N 70-100 Blood Urea Nitrogen 13 mg/dL N 6-24 Creatinine 0.46 mg/dL Low 0.51-0.95 BUN/Creatinine Ratio 28.3 High 8-20 Calcium 9.6 mg/dL N 8.6-10.3 Egfr Non- 135.9 N >60 Egfr 174.8 N >60 17 Laboratory test 10/16/2012 [facility] C Reactive < 0.5 mg/dL Less than finding [address] Protein 0.5 [place] [address] [phone] Erythrocyte Sed Rate 16 mm/Hr 0-40 Comp Metabolic Panel 10/16/2012 [facility] Sodium 138 mmol/L 133-[address] [place] [address] [phone] Potassium 4.0 mmol/L 3.5-5.0 Chloride 103 mmol/L [...] Egfr 159.2 >60 18 Laboratory test 10/16/2012 [facility] LDH 190 U/L High 95-[address] [place], [place] [address] [phone] CBC With Manual 10/16/2012 [facility] White Blood 5.9 4.8- 10.[address] Count 10^3/[place] [address] [phone] Red Blood Count 4.46 10^6/uL 4.0-5.4 Hemoglobin [...] RBC Morphology Normal Normal Laboratory test 10/16/2012 [facility] TSH (Thyroid 2.25 0.34- 5.[address] Stimulating miu/[place] [address] Horm) [phone] Vitamin D, 25 11/01/2011 [facility] 25-Hydroxy <4.0 ng/mL () Hydroxy [address] Vitamin D2 [place] [address] [phone] 25-Hydroxy Vitamin D3 22 ng/mL () 25-Hydroxy Vitamin D Total 22 ng/mL Abnormal () 19 Laboratory test 11/01/2011 [facility] TSH 2.76 0.34-5.[address] MIU/ML [place], [place] [address] [phone] Vitamin D 1,25 11/01/2011 [facility] Vitamin D, 1,25 63 pg/mL 18-78 20 And Vitamin D,[address] [place] [address] [phone] Lipid Profile 11/01/2011 [facility] Triglyceride 43 mg/dL 40- 200 (Trig/Chol/HDL) [address] [place] [address] [phone] Cholesterol 246 mg/dL High Less Than 200 21 High Density Lipoprotein 90 mg/dL High 40-60 22 Cholesterol/HDL Ratio 2.73 AVERAGE 1-4.44 Low Density Lipoprotein 147 mg/dL High Less Than 100 23 Comp Metabolic Panel 11/01/2011 [facility] Sodium 134 mmol/L Low 135-[address] [place] [address] [phone] Potassium 4.2 mmol/L 3.5-5.0 Chloride 102 mmol/L [...] 159.7 > 60 26 Laboratory test 04/13/2011 [facility] Troponin-I 0.01 NG/ML 0 -0.06 [address] [place] [address] [phone] CKMB 04/13/2011 [facility] CKMB In NG/ML 4.3 NG/ML High 0.3- 4.[address] [place], [place] [address] [phone] % CKMB 3 %MB 0-9 28 Laboratory test 04/13/2011 [facility] CPK (Creatine 134 U/L 0 -[address] Kinase) [place] [address] [phone] CBC Auto Diff 04/13/2011 [facility] White Blood 5.2 CUMM 4.8- 10.[address] [place] [address] [phone] Red Cell Count 4.39 CUMM 4.2-5.4 Hemoglobin [...] Basophils 0.1 0-0.2 Comp Metabolic Panel 04/13/2011 [facility] Sodium 138 mmol/L 135-[address] [place] [address] [phone] Potassium 3.9 mmol/L 3.5-5.0 Chloride 101 mmol/L [...] 159.7 > 60 31 Laboratory test 03/19/2011 [facility] TSH 2.89 MIU/ML 0.34- 5.[address] [place] [address] [phone] Vitamin D 1,25 03/19/2011 [facility] Vitamin D, 65 pg/mL 18- 78 32 And Vitamin D,[address] 1,25 [place] [address] [phone] Vitamin D, 25 03/19/2011 [facility] 25-Hydroxy <4.0 ng/mL () Hydroxy [address] Vitamin D2 [place] [address] [phone] 25-Hydroxy Vitamin D3 37 ng/mL () 25-Hydroxy Vitamin D Total 37 ng/mL () 33 Surgical 07/11/2006 [facility] Surgical [address] Pathology <SEE NOTE> [place] [address] [phone] 1 Troponin-I testing on Plasma Separator Tubes (PST) has a known false positive rate of 0.20-0.40%. All positive troponins reflex immediate secondary confirmatory testing. 2 [facility] Severe Sepsis and Septic Shock Management Bundle Measure requires all lactic acids initially measuring >2.0 mmol/L be repeated. 3 Because ethnic data is not always readily [...] 15-29 5 Kidney failure <15 (or dialysis) 4 Because ethnic data is not always [...] [address]: Akosua Guzman MD Acct: [id number] Unit: [id number] AGE: 71 Location: [facility] Re11/25/17 SEX: F Status: REG REF SPEC: [id number] CUCA: 11/25/17 [facility] DR: Akosua Guzman MD REQ: [id number] RECD: 11/25/17 STATUS: COMP OTHR DR: Hugo Rogers WORKFORCE PLANNER _ SOURCE: URINE SPDESC: ORDERED: Urine Culture QUERIES: Urine Source: Clean Catch Procedure Result Reported Site Urine Culture Final 11/26/17- 1312 ML No Growth (<1,000 CFU/mL) * ML - Main Lab . END OF REPORT DEPARTMENT OF PATHOLOGY, [address] [place] [id number] Kervin Read M.D. Director NO # [id number] SEE RESULT BELOW Name: NABILA CLEARY Izabel : [address]: Jeni Gardner NP Acct: [id number] Unit: [id number] AGE: 71 Location: [facility] Re07/20/17 SEX: F Status: REG REF SPEC: [id number] CUCA: 07/20/17 [facility] [address]: Jeni Gardner NP REQ: [id number] RECD: 07/20/17 STATUS: RAIZA GUDINO DR: Abida Wadsworth MD _ SOURCE: URINE SPDESC: ORDERED: Urine Culture Procedure Result Reported Site Urine Culture Final 07/22/17- 0854 ML Organism 1 ESCHERICHIA COLI [place] Count >100,000 (Many) CFU/ML 1. ESCHERICHIA COLI [...] . END OF REPORT DEPARTMENT OF PATHOLOGY, [address] [place] [address] Kervin Read M.D. Director [facility] # [id number] SEE RESULT BELOW Name: NABILA CLEARY : [address]: Adrian España MD Acct: [id number] Unit: [id number] AGE: 70 Location: [facility] Re10/01/16 SEX: F Status: REG REF SPEC: [id number] CUCA: 10/01/16-11[address] [facility] [address]: Adrian España MD REQ: [id number] RECD: 10/01/16 STATUS: ZAFAR GUDINO DR: Dakota Gardner WORKFORCE PLANNER _ ORDERED: LEVEL 4/3 COMMENTS: [id number] FINAL DIAGNOSIS 1. Skin, left cheek superior, [...] ON NEXT PAGE * ML=Testing performed at [facility] Lab DEPARTMENT OF PATHOLOGY, [address] [place] [address] Kervin Read M.D. Director [facility] # [id number] RUN DATE: 10/06/16 [facility] LAB LIVE PAGE 2 Patient: NABIAL CLEARY [id number] (Continued) GROSS DESCRIPTION (Continued) Signed (signature on file) Fatuma Morrison MD 1331 END OF REPORT * ML=Testing performed at Main Lab DEPARTMENT OF PATHOLOGY, [address] [place] [address] Kervin Read M.D. Director [facility] # [id number] 9 Because ethnic data is not always [...] failure <15 (or dialysis) 10 FASTING 11 -- REFERENCE VALUE -- 25-HYDROXY D TOTAL (D2+D3) Optimum levels in the healthy population are 20-50, patients with bone disease may benefit from higher levels within this range. Test Performed by: [place] [address] Breastfeeding Peer Counselor: Brad Langley III, M.D. 12 Because ethnic [...] 5 Kidney failure <15 (or dialysis) 13 Desirable <150 Borderline high 150-199 High [...] normal population are 25-80 Test Performed by: [place] [address] Breastfeeding Peer Counselor: Brad Langley III, M.D. 20 Test Performed by: [address] [address] Breastfeeding Peer Counselor: Brad Langley III, M.D. 21 CHOLESTEROL INTERPRETATION: [...] <15 (or dialysis) 32 Test Performed by: [facility] Dpt of Lab Med and Pathology [address] [place] [address] Breastfeeding Peer Counselor: Brad Langley III, M.D. 33 -- REFERENCE VALUE -- 25-HYDROXY D TOTAL (D2+D3) Optimum levels in the normal population are 25-80 Test Performed by: [facility] Dpt of Lab Med and Pathology [address] [place] [address] Breastfeeding Peer Counselor: Brad Langley III, M.D. 34 ---- RUN DATE: 07/13/06 [facility] NMI LIVE PAGE 1 RUN TIME: 1521 Specimen Inquiry RUN USER: INTERFACE [id number] NABILA CLEARY 60/F <[facility] 07/12> ([id number]) SDS Zupruk MD, Celestino M . -- Specimen: [id number] Spec Date: 07/11/[address]: Celestino Sierra MD Spec Type: SURGICAL P Received: 07/12/06 Copies to: Maryjo Joshi MD SPECIMEN L3 -L4 DISC HISTORY PRE-OP DIAGNOSIS: L3-L4 disc protrusion GROSS DESCRIPTION The specimen is received in formalin labelled Nabila Cleary, L3-L4 Disc and consists of multiple fragments of hill-mixon fibrous soft tissue measuring 2.5 x 1.5 x 0.6 cm. in aggregate. Pile Driver Operator sections, one cassette. DIAGNOSIS Intervertebral disc, L3-4, discectomy - Intervertebral disc material. Signed Electronically by: KERVIN READ MD 07/13/06 -- -- DEPARTMENT OF PATHOLOGY, [address] [place] [address] [facility] Permit #[id number] [place] II, M.D. Director KervinAlba Baker irector -- Procedures Date Code Description Status 03/22/2018 53875 EKG Tracing & Interpretation Completed 12/08/2017 71470 THR Total Hip Replacement Completed 12/08/2017 20607 THR Total Hip Replacement Completed 12/06/2017 88157 Diffusing Capacity Completed 12/06/2017 65083 Plethysmography Determination Lung Volumes & Per Completed Airway Resist 12/06/2017 73264 Pulmonary Function><Bronchodil Completed 11/27/2017 75200 Sleep Study Unattended,HRT Rate,Oxygen Sat,Resp Completed Effort/Airflow 11/23/2017 48931 EKG Tracing & Interpretation Completed 03/01/2017 75528 Admin Of Inj Completed 09/02/2016 71136 Admin Of Inj Completed 03/05/2016 98614 Chemotherpy Admin Subcutaneous/Im Non-Hormonal Completed Anti-Neoplastic 08/19/2015 03602715 Mammogram Completed 08/19/2015 [id number] Bone Mineral Density Test Completed 10/10/2013 69856 EKG Tracing & Interpretation Completed 08/22/2013 71389144 Mammogram Completed 11/11/2011 [id number] Colonoscopy Completed 08/10/2011 10002 EKG Tracing & Interpretation Completed 04/13/2011 84244 Noninvasive Ear Or Pulse Oximetry For Oxygen Completed Saturation 04/13/2011 00439 EKG Tracing & Interpretation Completed 03/18/2011 [id number] Bone Mineral Density Test Completed 02/18/2011 83914988 Mammogram Completed 02/10/2011 21865 Noninvasive Ear Or Pulse Oximetry For Oxygen Completed Saturation 02/03/2011 51438 Noninvasive Ear Or Pulse Oximetry For Oxygen Completed Saturation 12/10/2010 61459 Noninvasive Ear Or Pulse Oximetry For Oxygen Completed Saturation 12/03/2010 68072 Inhalation TX For Acute Airway Obstruction Completed W/Nebulizer/Inhaler 12/03/2010 36447 Noninvasive Ear Or Pulse Oximetry For Oxygen Completed Saturation 03/25/2010 51017 EKG Tracing & Interpretation Completed 09/24/2008 124305032 Bone Mineral Density Test Completed 09/12/2008 93661 EKG Tracing & Interpretation Completed 04/26/2008 60406 Noninvasive Ear Or Pulse Oximetry For Oxygen Completed Saturation 04/26/2008 68290 Noninvasive Ear Or Pulse Oximetry For Oxygen Completed Saturation 04/26/2008 34889 Inhalation TX For Acute Airway Obstruction Completed W/Nebulizer/Inhaler 09/06/2007 [id number] Mammogram Completed 07/13/2006 15837 EKG Tracing & Interpretation Completed 07/13/2006 63475 EKG Tracing & Interpretation Completed 07/11/2006 64890 Laminotomy W/Decomp NRV RT,One Interspace,Lumbar Completed 06/23/2006 73079 EKG Tracing & Interpretation Completed 04/29/2006 [id number] Mammogram Completed Encounters Type Date Location Provider Dx Diagnosis Office Visit 06/28/2018 [facility] Delia Brooks, J96.01 Acute respiratory 8:57a Assjcarlos cox M.D. failure with Hospitalists hypoxia J44.1 Chronic obstructive pulmonary disease w (acute) exacerbation Office Visit 06/27/2018 8:56a [facility] J96.01 Acute respiratory Assocjcarlos M.D. failure with Hospitalists hypoxia J44.1 Chronic obstructive pulmonary disease w (acute) exacerbation Office Visit 06/26/2018 [facility] Lisbet J44.1 Chronic 8:56a Assocjcarlos MD obstructive [facility] pulmonary disease w (acute) exacerbation Office Visit 06/19/2018 [facility] Garrison Perez G35 Multiple sclerosis 11:15a Services Of Oj Mckeon M.D. Z79.899 Other long-term (current) drug therapy Office Visit 06/13/2018 9:15a Pulmonology And Laquiat J44.9 Chronic Sleep Services Of MD Mynor obstructive [employer] T[employer] Operator pulmonary disease, unspecified R06.83 Snoring Office Visit 03/22/2018 11:00a [facility] Genaro Gardner, R06.02 Shortness of Medicine - N.P. breath [place] I49.3 Ventricular premature depolarization Z87.891 Personal history of nicotine dependence J44.1 Chronic obstructive pulmonary disease w (acute) exacerbation Office Visit 12/26/2017 [facility] Genaro Gardner, I10 Essential 2:40p Medicine - N.P. (primary) [place] hypertension Office Visit 12/10/2017 [facility] Grzegorz West MD J44.9 Chronic 10:37a Assoc,pc obstructive Hospitalists pulmonary disease, unspecified E78.5 Hyperlipidemia, unspecified G35 Multiple sclerosis Office Visit 12/09/2017 10:37a [facility] Darlene J44.9 Chronic Assoc,[facility] Selina, obstructive Hospitalists WORKFORCE PL[employer]NER pulmonary disease, unspecified G35 Multiple sclerosis E78.5 Hyperlipidemia, unspecified Office Visit 12/08/2017 [facility] Bahgat J44.1 Chronic 10:36a Assoc,pc PENELOPE Wilson obstructive Hospitalists pulmonary disease w (acute) exacerbation E78.5 Hyperlipidemia, unspecified G35 Multiple sclerosis Office Visit 11/23/2017 2:00p [facility] Internal Hugo Rogers Z01.818 Encounter for other Medicine - WORKFORCE PL[employer]NER preprocedural [place] examination M16.12 Unilateral primary osteoarthritis, left hip J44.9 Chronic obstructive pulmonary disease, unspecified G35 Multiple sclerosis Office Visit 11/14/2017 Pulmonology And Laquita Z01.811 Encounter for 9:30a Sleep Services Of MD Mynor preprocedural [facility] respiratory examination M16.11 Unilateral primary osteoarthritis, [...] osteoarthritis, left hip Office Visit 10/21/2017 4:00p [facility] Internal Jeni Gardner, H81.10 Benign paroxysmal Medicine - N.P. 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 side [place] J44.9 Chronic obstructive pulmonary disease, unspecified Office Visit 08/04/2016 2:20p [facility] Internal Jeni Gardner, M79.661 Pain in right Medicine - N.P. lower leg [place] Z86.718 Personal history of other venous thrombosis and embolism Office Visit 07/22/2016 10:40a [facility] Internal Jeni Gardner, M54.2 Cervicalgia Medicine - N.P. [place] Office Visit 07/07/2016 10:30a Orthopedic Akosua Guzman, M25.552 Pain in left hip Services Of Alba Savage M16.12 Unilateral primary osteoarthritis, left hip Office Visit 06/22/2016 10:00a [facility] Internal Jeni Gardner, S39.013A Strain of Medicine - N.P. muscle, fascia [place] and tendon of pelvis, init encntr R10.32 Left lower quadrant pain Office Visit 04/16/2016 2:40p [facility] Internal Hugo Rogers, J06.9 Acute upper Medicine - WORKFORCE PL[employer]NER respiratory [place] infection, unspecified J44.9 Chronic obstructive pulmonary disease, unspecified Office Visit 03/02/2016 Neurohospitalist Noemi Damico, G35 Multiple 9:30a Clinic [employer] sclerosis J44.9 Chronic obstructive pulmonary disease, unspecified S39.013A Strain of muscle, fascia and tendon of pelvis, init encntr Z79.899 Other long-term (current) drug therapy Office Visit 02/09/2016 11:20a [facility] Internal Jeni Gardner, Z23 Encounter for Medicine - N.P. immunization [place] S39.013A Strain of muscle, fascia and tendon of pelvis, init encntr M81.0 Age-related osteoporosis w/o current pathological fracture Office Visit 10/24/2015 1:20p [facility] Internal Jeni Gardner, M81.0 Age- related Medicine - N.P. osteoporosis w/o [place] current pathological fracture Office Visit 08/12/2015 10:40a [facility] Internal Jeni Gardner, Z00.00 Encntr for general Medicine - N.P. adult medical exam [place] w/o abnormal findings Z12.31 Encntr screen mammogram for malignant neoplasm of breast J44.9 Chronic obstructive pulmonary disease, unspecified E78.0 Pure hypercholesterolemia G35 Multiple sclerosis M85.89 Oth disrd of bone density and structure, multiple sites F17.201 Nicotine dependence, unspecified, in remission F32.9 Major depressive disorder, single episode, unspecified Z23 Encounter for immunization Office Visit 04/30/2015 4:20p [facility] Internal Hugo Rogers, J20.9 Acute bronchitis, Medicine - WORKFORCE PL[employer]NER unspecified [place] J44.1 Chronic obstructive pulmonary disease w (acute) exacerbation Office Visit 11/26/2014 10:00a [facility] Trinity Ramirez Multiple Services Of [facility] Alba Mckeon Sclerosis 780.79 Malaise And Fatigue Other Office Visit 06/07/2014 10:00a [facility] Internal Jeni Gardner, 496 COPD Airway Medicine - N.P. Obstruction [place] Chronic Not Class Elsewhere 724.5 Backache Unspec 733.00 Osteoporosis Unspec 720.2 Sacroiliitis Not Elsewhere Classified Office Visit 06/05/2014 2:20p [facility] Internal Jeni Gardner, 724.5 Backache Unspec Medicine - N.P. [place] 720.2 Sacroiliitis Not Elsewhere Classified 728.85 Spasm Muscle Office Visit 04/10/2014 11:20a [facility] Internal Jeni Gardner, 496 COPD Airway Medicine - N.P. Obstruction Chronic [place] Not Class Elsewhere Office Visit 03/27/2014 9:00a [facility] Internal Jeni Gardner, 496 COPD Airway Medicine - N.P. Obstruction Chronic [place] Not Class Elsewhere Office Visit 03/21/2014 11:40a [facility] Internal Jeni Gardner, 496 COPD Airway Medicine - N.P. Obstruction Chronic [place] Not Class Elsewhere Office Visit 11/27/2013 9:00a [facility] Internal Jeni Gardner, 272.4 Hyperlipidemia Other Medicine - N.P. Unspec [place] 564.00 Constipation Unspecified Office Visit 10/23/2013 2:15p Potterisidro Ramirez Multiple Services Of Oj Mckeon M.D. Sclerosis Office Visit 10/10/2013 2:00p [facility] Internal Maryjo Madelyn, V70.0 Examination Medicine - M.D., FACP General Medical [place] Routine AT Health Care Facility V70.0 Examination General Medical Routine AT Health Care Facility V76.10 Screening For Malignant Neoplasm Breast 340 Multiple Sclerosis 496 COPD Airway Obstruction Chronic Not Class Elsewhere 530.81 Esophageal Reflux 300.00 Anxiety State Unspec 564.1 Irritable Bowel Syndrome 272.0 Hypercholesterolemia Pure 575.8 Gallbladder Disorders Other Spec Office Visit 09/04/2013 11:20a [facility] Internal Maryjo Madelyn, 496 COPD Airway Medicine - M.D., FACP Obstruction Chronic [place] Not Class Elsewhere 530.81 Esophageal Reflux 575.8 Gallbladder Disorders Other Spec Office Visit 08/16/2013 3:40p [facility] Internal Maryjo Madelyn, 496 COPD Airway Medicine - M.D., FACP Obstruction Chronic [place] Not Class Elsewhere 530.81 Esophageal Reflux Office Visit 04/19/2013 4:00p [facility] Internal Maryjo Joshi, 466.0 Bronchitis Acute Medicine - M.D., FACP [place] Office Visit 02/22/2013 9:00a [facility] Internal Maryjo Madelyn, 564.1 Irritable Bowel Medicine - M.D., FACP Syndrome [place] 496 COPD Airway Obstruction Chronic Not Class Elsewhere 300.00 Anxiety State Unspec 340 Multiple Sclerosis Office Visit 11/06/2012 11:20a [facility] Internal Maryjolisa Joshi, 715.14 Osteoarthrosis Medicine - M.D., FACP Localized Prim Hand [place] 780.79 Malaise And Fatigue Other Office Visit 10/16/2012 11:20a [facility] Internal Maryjo Madelyn, 780.79 Malaise And Medicine - M.D., FACP Fatigue Other [place] 785.6 Lymph Nodes Enlargement Office Visit 10/04/2012 2:45p Fuad Ramirez Multiple Services Of Oj Mckeon M.D. Sclerosis Office Visit 05/01/2012 9:40a [facility] Internal Jeni Gardner, 340 Multiple Medicine - N.P. Sclerosis [place] 380.4 Impacted Cerumen 466.0 Bronchitis Acute Office Visit 04/27/2012 10:40a [facility] Internal Jeni Gardner, 466.0 Bronchitis Acute Medicine - N.P. [place] 380.4 Impacted Cerumen Office Visit 03/03/2012 3:40p [facility] Internal Jeni Roycen, 466.0 Bronchitis Acute Medicine - N.P. [place] Office Visit 11/08/2011 8:40a [facility] Internal Jeni Varn, 268.9 Vitamin D Medicine - N.P. Deficiency Unspec [place] 272.4 Hyperlipidemia Other Unspec 305.1 Tobacco Use Disorder Office Visit 09/06/2011 4:20p [facility] Internal [place] 528.6 Oral Soft Tissue Medicine - Alba Wadsworth Exlud Ginviva & [place] Tongue Leukoplakia Mucosa 923.10 Contusion Forearm Office Visit 08/10/2011 2:20p [facility] Internal Maryjo Joshi, V70.0 Examination Medicine - Alba, FACP General [facility] Routine AT Health Care Facility V76.10 Screening For Malignant Neoplasm Breast 496 COPD Airway Obstruction Chronic Not Class Elsewhere 733.90 Bone & Cartilage Disorder Unspec 305.1 Tobacco Use Disorder 401.1 Hypertension Benign 780.52 Insomnia Unspecified v72.60 Laboratory Examination, Unspecified Office Visit 04/15/2011 DO Not Use Jeni Varn, 723.1 Cervicalgia 10:00a [facility]-[place] N.P. Office Visit 04/13/2011 DO Not Use [...] Office Visit 04/23/2010 2:45p DO Not Use Maryjolisa Joshi, 340 Multiple Sclerosis Gavino Willis, FACP 788.43 Nocturia 309.0 Adjustment Disorder With Depression 496 COPD Airway Obstruction Chronic Not Class Elsewhere Office Visit 03/25/2010 DO Not Use [place] 786.50 Pain Chest Unspec 9:00a Gavino Wadsworth M.D. Office Visit 12/02/2009 DO Not Use Maryjolisa Joshi, 496 COPD Airway 10:00a Gavino Willis, FACP Obstruction Chronic Not Class Elsewhere Office Visit 10/15/2009 DO Not Use Maryjolisa Joshi, 491.21 Bronchitis 4:15p Gavino Willis, FACP Obstructive Chronic W/Acute Exacerbation Office Visit 09/03/2009 DO Not Use Jeni Gardner, 466.0 Bronchitis Acute 3:45p Oj-Deysi N.P. Office Visit 04/24/2009 DO Not Use Maryjolisa Joshi, 496 COPD Airway 2:00p Gavino Willis, FACP Obstruction Chronic Not Class Elsewhere 340 Multiple Sclerosis V04.81 Need For Prophylactic Vaccination & Inoculation/Influenza Office Visit 04/04/2009 4:30p DO Not Use Marcela, 708.9 Urticaria Gavino Mckinney M.D. Unspec 496 COPD Airway Obstruction Chronic Not Class Elsewhere 340 Multiple Sclerosis Office Visit 03/19/2009 DO Not Use Jeni Gardner, 461.9 Sinusitis Acute 2:30p Oj-De[facility] N.P. 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 Radial Styloid 719.41 Pain Joint Shoulder Region Office Visit 06/19/2008 DO Not Use Jeni Varn, 466.0 Bronchitis Acute 4:00p Oj-[place] N.P. 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 Breast Office Visit 02/16/2008 DO Not Use Maryjo Madelyn, 496 COPD [...] Use Faye Medrano, 729.5 Pain In Gavino Willis Limb 356.9 Neuropathy Peripheral Hereditary Idiopathic Unspec Office Visit 06/13/2007 DO Not Use Jeni Kendra, 599.0 UTI Urinary Tract 3:45p Oj-[place] N.P. Infection Site Not Spec Office Visit 03/28/2007 Neurosurgery Celestino Mercado 724.2 Lumbago 3:30p Services Of Oj Allen M.D. Office Visit 02/07/2007 DO Not Use Jeni Gardner, 564.00 Constipation 11:45a Oj-Deysi N.P. Unspecified 465.9 URI Upper Respiratory Infections [...] DO Not Use Maryjolisa Joshi, V70.0 Examination Gavino Willis, FACP General Medical Routine AT Health Care Facility 340 Multiple Sclerosis V06.1 Mbjzimykoq-Cnetshj-Fketcfvi Combined (DTaP) Office Visit 12/30/2005 11:15a DO Not Use Maryjo Madelyn, 610.0 Cyst Breast [facility]-Deysi Willis, FACP Solitary 340 Multiple Sclerosis 272.4 Hyperlipidemia Other Unspec Plan of Treatment Future Appointment(s):08/31/2018 1:00 pm - Karli Brito NP at [facility]08/15/2018 2:20 pm - Jeni Gardner N.Jaden. at [facility] Internal Medicine - Inwmuotzc72/29/2019 11:30 am - Laquita Lowe MD at [facility]07/26/2018 - Laquita Lowe, MDR06.83 TryrdotV95.9 Chronic obstructive pulmonary disease, unspecifiedNew Medication: Prednisone 5 mg - 4 tab daily for 1 week, then 2 tab daily for 1 week, then 1 tab daily for 1 weekFollow up:1 month, ROBYN
--- OUTSIDE RECORDS SUMMARY | 2018-08-20 12:55 | XMS REPORT | Continuity of Care Document ---
:1945 External Reference #:[id number] Author Name Kristindaniela Rosa Maria Care Team Providers Name Role Phone Abida Wadsworth MD Primary Care Physician Unavailable Payers Date Identification Numbers Payment Provider Subscriber Effective: 2012 Policy Number: [id number] Medicare Nabila Cleary PayID: [id number] [address] [place] [address] Effective: 2016 Policy Number: [id number] [employer] Nabila Cleary Expires: 2017 PayID: [id number] [address] [address] Effective: 2012 Policy Number: [id number] [employer] Nabila Cleary Expires: 2016 PayID: [id number] [address] [address] Effective: 2009 Policy Number: [id number] BS Of [facility] Nabila Cleary Expires: 2011 Group Number: [id number] [address] PayID: [id number] [place] [address] Policy Number: [id number] [facility] Nabila Cleary PayID: [id number] [address] [place] [address] Advance Directives Description No Information Available Problems Date Description Provider Status Onset: 12/03/2010 Chronic obstructive lung disease Maryjo Joshi M.D., [facility] Active Onset: 12/03/2010 Multiple sclerosis Maryjo Madelyn, M.D., FACP Active Onset: 03/15/2011 Tobacco user Maryjo Joshi M.D., [facility] Active Onset: 07/07/2016 Localized, primary osteoarthritis of [...] 1 dog in another visits apartment 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 nebulizer [...] tabs by J44.9 Hugo mouth every Sue, FLIGHT TEACHER - day x1 day, 04/21 1 tab by mouth every day x 4 days Venlafaxine HCL 08/11 Hx Caps ER 75mg 30cap 1 by mouth F32.9 Jeni 24HR s every day Kendra, N.P. - 03/15 Levaquin 05/15 Hx Tablets 500mg 10tab 1 by mouth s every day Sue, FLIGHT TEACHER - 05/25 Prednisone 05/05 Hx Tablets 10mg 16tab take 4 tab s daily x 1 Sue FLIGHT TEACHER - day then 3 05/15 tab daily x 2 days, then 2 tab daily for 2 day, and 1 tab for 2 day. Azithromycin 04/30 Hx Tablets 250mg 6tabs 2 tabs by J20.9 Hugo mouth every Sue, FLIGHT TEACHER - day x1 day, 05/06 1 tab [...] - cough 10/04 Ergocalciferol 11/07 Hx Capsules [id number] 8caps one po once 268.9 weekly Deuce [facility]hi M.[facility]., [facility] 01/06 Advair Diskus 06/16 Hx Aerosol 250-50mcg [...] times daily Madelyn, - as needed M.D., [facility] 08/09 Prednisone 12/10 Hx Tablets 10mg 15tab 1 tablet by 496 s mouth every Madelyn, - morning for M.D., [facility] 02/03 one week - then 1/2 tablet by mouth for one week - then 1/4 tablet by mouth for one week Robitussin ac 12/10 Hx Solution 4Oz 1-2 tsp at 496 bedtime as Madelyn, - needed M.DWendy, [facility] 08/08 Wellbutrin SR 12/10 Hx Tablets ER 100mg 30tab 1 by mouth 496 12HR s every Am Deuce Joshi M.D., [facility] 02/03 Nebulizer 12/10 Hx use as J44.9 directed Deuce Joshi M.D., [facility] 07/18 Levofloxacin 12/03 Hx Tablets 500mg 7tabs 1 tab by 496 mouth every Madelyn, - day M.D., [facility] 12/10 Prednisone 12/03 Hx Tablets 5mg 50tab 4 tabs po qd 496 s x 4d then 3 Madelyn, - tabs po qd x M.D., [facility] 12/10 3d then tabs po qd x [...] as Pack s directed Deuce Joshi M.D., [facility] 03/25 Effexor XR 12/01 Hx Caps ER 150mg 90cap 1 tablet 24HR s daily Deuce Joshi M.D., [facility] 02/22 Soma 12/01 Hx Tablets 350mg 90tab 1 tab by Garrison . s mouth q6 Mike, - hours as M.DWendy 06/19 needed mdd Advair Diskus Hx 250-50mcg 3mont 1 inhalation Maryjo /0000 /Dose hs twice daily Deuce Joshi M.D., [facility] 02/03 Combivent Hx 103-18mcg 1 Inhalation Madelyn, /0000 /Act Twice A Day MD Maryjo - as Needed 09/14 Cheratussin ac Hx 100-10mg/ 118ml 1-2 tsp po Maryjo /0000 5ML qhs prn Deuce Joshi M.D., [facility] 12/01 Azithromycin Hx 250mg 6unit 2 tabs po Maryjo /0000 s day 1 then 1 Madelyn, - po qd til MWaldemar, [facility] 12/01 Alendronate Hx Tabs 70mg 4tabs take 1 Maryjo Sodium /0000 tablet by Madelyn, - mouth every M.D., [facility] Lipitor Hx Tablets 20mg 90tab 1 po [...] Code Status Date Vaccine Reaction Lot # [id number] Given 02/09/2016 Influenza Virus Vaccine, no reaction noted [id number] Quadrivalent, Split, .... hh Preservative Free 06537 Given 08/12/2015 Pneumococcal Conjugate [id number] Vaccine 13 Valent For Intramuscular Use Q2039 Given 03/05/2015 Flu Vaccine NOS 28142 Given 02/26/2014 Fluzone High Dose Q2037 Given 04/18/2012 Fluvirin Im 3Yrs And Older Q2037 Given 04/18/2012 Fluvirin Im 3Yrs And Older [id number] 00253 Given 04/18/2012 Zoster (Zostavax) [id number] 34750 Given 02/03/2011 Influenza Virus 3Yrs & Over [id number] 20193 Given 03/20/2010 Influenza Virus 3Yrs & Over [id number] 59729 Given 04/24/2009 Administration Swine Flu Shot 80300 Given 04/24/2009 Influenza Virus Vaccine, Pandemic Formulation 56725 Given 02/24/2009 Influenza Virus 3Yrs & Over 10421 Given 02/16/2008 Pneumonia Vaccine 64752 Given 02/16/2008 Pneumonia Vaccine 44532 Given 02/16/2008 Influenza Virus 3Yrs & Over 42257 Given 04/18/2007 Influenza Virus 3Yrs & Over 02442 Given 06/23/2006 Tdap - Tetanus/Diptheria/Acellular Pertussis 31730 Given 06/23/2006 Tdap - Tetanus/Diptheria/Acellular Pertussis 95124 Given 04/04/2006 Influenza Virus 3Yrs & Over [...] Diastolic 73 mmHg O2 % BldC Oximetry 90595 % BMI (Body Mass Index) 18.2 kg/m2 [...] Result H/L Range Note Laboratory test 06/25/2018 [facility] C Reactive < 1.00 mg/L N <8.[address] [place] [address] [phone] Troponin-I (TnI) 0.00 ng/mL <0.04 1 Lactic Acid 1.6 mmol/L N 0.5-2.0 2 Laboratory test 06/25/2018 [facility] B-Type 15 pg/mL <=[address] [place] [address] Peptide BNP [phone] Inr/Protime 06/25/2018 [facility] Inr 0.86 N 0.77-1.[address] [place] [address] [phone] Laboratory test 06/25/2018 [facility] Partial Thrombo 27.9 N 26.0-36.[address] [place] [address] [phone] Comp Metabolic 06/25/2018 [facility] Sodium 139 mmol/L N 135- [address] [place] [address] [phone] Potassium 4.2 mmol/L N 3.5-5.0 Chloride 102 [...] 105.0 >60 3 CBC Auto Diff 11/25/2017 [facility] White Blood 5.7 10^3/uL N 3.5-10.[address] [place] [address] [phone] Red Blood Count 4.68 10^6/uL N 4.00-5.40 [...] Cells % 0 Comp Metabolic Panel 11/25/2017 [facility] Sodium 140 mmol/L N 135-145 [address] [place] [address] [phone] Potassium 4.1 mmol/L N 3.5-5.0 Chloride 103 [...] Egfr 151.1 >60 4 Urinalysis Profile 11/25/2017 [facility] [place] [address] [phone] Urine Appearance Clear Urine Specific [place] 1.017 N 1.010-1.030 Urine pH 6.0 N 5-9 Urine Urobilinogen Negative Negative Urine Ketones Negative Negative Urine Protein Negative Negative Urine Leukocytes Negative Negative Urine Blood Negative Negative Urine Nitrite Negative Negative Urine Bilirubin Negative Negative Urine Glucose Negative Negative Inr/Protime 11/25/2017 [facility] Inr 0.89 N 0.77-1.02 [place] [address] [phone] Laboratory test 11/25/2017 [facility] Partial 27.4 seconds N 26.0-36.[address] [place] [address] PTT [phone] Type & Screen 11/25/2017 [facility] Patient O [place] [address] [phone] Antibody Screen NEGATIVE Urine Culture And 11/25/2017 [facility] Urine Culture SEE RESULT [address] [place] [address] [phone] Urine Culture And 07/20/2017 [facility] Urine Culture SEE RESULT [address] [place] [address] [phone] Laboratory test 10/01/2016 [facility] Surgical SEE RESULT 7 , [address] [place] [address] [phone] Comp Metabolic 02/06/2016 [facility] Sodium 137 mmol/L N 133- [address] [place] [address] [phone] Potassium 4.2 mmol/L N 3.5-5.0 Chloride 103 [...] N >60 9 CBC Auto Diff 02/06/2016 [facility] White Blood 5.2 10^3/uL N 3.5-10.[address] [place] [address] [phone] Red Blood Count 4.54 10^6/uL N 4.0-5.4 [...] % 0 N Vitamin D, 25 11/13/2013 [facility] 25-Hydroxy Vitamin <4.0 ng/ mL N [address] D2 [place] [address] [phone] 25-Hydroxy Vitamin D3 28 ng/mL N 25-Hydroxy Vitamin D Total 28 ng/mL N 11 Comp Metabolic Panel 11/13/2013 [facility] Sodium 138 mmol/L N 133-[address] [place] [address] [phone] Potassium 4.1 mmol/L N 3.7-5.6 Chloride 104 [...] 148.4 N >60 12 Lipid Profile 11/13/2013 [facility] Triglycerides 53 mg/dL N 13 (Trig/Chol/HDL) [address] [place] [address] [phone] Cholesterol 286 mg/dL N 14 HDL Cholesterol 73.8 mg/dL N 15 LDL Cholesterol 202 mg/dL N 16 Laboratory 11/13/2013 [facility] Hepatitis C Nonreactive N Nonreactive test finding [address] [place] [address] [phone] Basic 08/16/2013 [facility] Sodium 135 mmol/L N 133-[address] [place] [address] [phone] Potassium 5.2 mmol/L N 3.7-5.6 Chloride 99 mmol/L Low 101-111 Co2 Carbon Dioxide 31 mmol/L N 22-32 Anion Gap 5 mmol/L N 2-11 Glucose 73 mg/dL N 70-100 Blood Urea Nitrogen 13 mg/dL N 6-24 Creatinine 0.46 mg/dL Low 0.51-0.95 BUN/Creatinine Ratio 28.3 High 8-20 Calcium 9.6 mg/dL N 8.6-10.3 Egfr Non- 135.9 N >60 Egfr 174.8 N >60 17 Laboratory test 10/16/2012 [facility] C Reactive < 0.5 mg/dL Less than finding [address] Protein 0.5 [place] [address] [phone] Erythrocyte Sed Rate 16 mm/Hr 0-40 Comp Metabolic Panel 10/16/2012 [facility] Sodium 138 mmol/L 133-[address] [place] [address] [phone] Potassium 4.0 mmol/L 3.5-5.0 Chloride 103 mmol/L [...] Egfr 159.2 >60 18 Laboratory test 10/16/2012 [facility] LDH 190 U/L High 95-[address] [place], [place] [address] [phone] CBC With Manual 10/16/2012 [facility] White Blood 5.9 4.8- 10.[address] Count 10^3/[place] [address] [phone] Red Blood Count 4.46 10^6/uL 4.0-5.4 Hemoglobin [...] RBC Morphology Normal Normal Laboratory test 10/16/2012 [facility] TSH (Thyroid 2.25 0.34- 5.[address] Stimulating miu/[place] [address] Horm) [phone] Vitamin D, 25 11/01/2011 [facility] 25-Hydroxy <4.0 ng/mL () Hydroxy [address] Vitamin [place]2 [place] [address] [phone] 25-Hydroxy Vitamin D3 22 ng/mL () 25-Hydroxy Vitamin D Total 22 ng/mL Abnormal () 19 Laboratory test 11/01/2011 [facility] TSH 2.76 0.34-5.[address] MIU/ML [place], [place] [address] [phone] Vitamin D 1,25 11/01/2011 [facility] Vitamin D, 1,25 63 pg/mL 18-78 20 And Vitamin D,[address] [place] [address] [phone] Lipid Profile 11/01/2011 [facility] Triglyceride 43 mg/dL 40- 200 (Trig/Chol/HDL) [address] [place] [address] [phone] Cholesterol 246 mg/dL High Less Than 200 21 High Density Lipoprotein 90 mg/dL High 40-60 22 Cholesterol/HDL Ratio 2.73 AVERAGE 1-4.44 Low Density Lipoprotein 147 mg/dL High Less Than 100 23 Comp Metabolic Panel 11/01/2011 [facility] Sodium 134 mmol/L Low 135-[address] [place] [address] [phone] Potassium 4.2 mmol/L 3.5-5.0 Chloride 102 mmol/L [...] 159.7 > 60 26 Laboratory test 04/13/2011 [facility] Troponin-I 0.01 NG/ML 0 -0.06 [address] [place] [address] [phone] CKMB 04/13/2011 [facility] CKMB In NG/ML 4.3 NG/ML High 0.3- 4.[address] [place], [place] [address] [phone] % CKMB 3 %MB 0-9 28 Laboratory test 04/13/2011 [facility] CPK (Creatine 134 U/L 0 -[address] Kinase) [place] [address] [phone] CBC Auto Diff 04/13/2011 [facility] White Blood 5.2 CUMM 4.8- 10.[address] [place] [address] [phone] Red Cell Count 4.39 CUMM 4.2-5.4 Hemoglobin [...] Basophils 0.1 0-0.2 Comp Metabolic Panel 04/13/2011 [facility] Sodium 138 mmol/L 135-[address] [place] [address] [phone] Potassium 3.9 mmol/L 3.5-5.0 Chloride 101 mmol/L [...] 159.7 > 60 31 Laboratory test 03/19/2011 [facility] TSH 2.89 MIU/ML 0.34- 5.[address] [place] [address] [phone] Vitamin D 1,25 03/19/2011 [facility] Vitamin D, 65 pg/mL 18- 78 32 And Vitamin D,[address] 1,25 [place] [address] [phone] Vitamin D, 25 03/19/2011 [facility] 25-Hydroxy <4.0 ng/mL () Hydroxy [address] Vitamin [place]2 [place] [address] [phone] 25-Hydroxy Vitamin D3 37 ng/mL () 25-Hydroxy Vitamin D Total 37 ng/mL () 33 Surgical 07/11/2006 [facility] Surgical [address] Pathology <SEE NOTE> [place] [address] [phone] 1 Troponin-I testing on Plasma Separator Tubes (PST) has a known false positive rate of 0.20-0.40%. All positive troponins reflex immediate secondary confirmatory testing. 2 [facility] Severe Sepsis and Septic Shock Management [...] [address]: Akosua Guzman MD Acct: [id number] Unit: [id number] AGE: 71 Location: [facility] Re11/25/17 SEX: F Status: REG REF SPEC: [id number] CUCA: 11/25/[address] [facility] [address]: Akosua Guzman MD REQ: [id number] RECD: 11/25/17 STATUS: COMP OTHR DR: Hugo Rogers FLIGHT TEACHER _ SOURCE: URINE SPDESC: ORDERED: Urine Culture QUERIES: Urine Source: Clean Catch Procedure Result Reported Site Urine Culture Final 11/26/17- 1312 ML No Growth (<1,000 CFU/mL) * ML - Main Lab . END OF REPORT DEPARTMENT OF PATHOLOGY, [address] [place] [address] Kervin Read M.D. Director NO # [id number] SEE RESULT BELOW Name: NABILA CLEARY Izabel : [address]: Jeni Gardner NP Acct: [id number] Unit: [id number] AGE: 71 Location: [facility] Re07/20/17 SEX: F Status: REG REF SPEC: [id number] CUCA: 07/20/[address] [facility] [address]: Jeni Gardner NP REQ: [id number] RECD: 07/20/17 STATUS: RAIZA GUDINO DR: Abida Wadsworth MD _ SOURCE: URINE SPDESC: ORDERED: Urine Culture Procedure Result Reported Site Urine Culture Final 07/22/17- 0854 ML Organism 1 ESCHERICHIA COLI Berry Count >100,000 (Many) CFU/ML 1. ESCHERICHIA COLI [...] . END OF REPORT DEPARTMENT OF PATHOLOGY, [address] [place] [address] Kervin Read M.D. Director [facility] # [id number] SEE RESULT BELOW Name: NABILA CLEARY : [address]: Adrian España MD Acct: [id number] Unit: [id number] AGE: 70 Location: [facility] Re10/01/16 SEX: F Status: REG REF SPEC: [id number] CUCA: 10/01/16-[address] [facility] [address]: Adrian España MD REQ: [id number] RECD: 10/01/16 STATUS: ZAFAR GUDINO DR: Dakota Gardner FLIGHT TEACHER _ ORDERED: LEVEL 4/3 COMMENTS: [id number] FINAL DIAGNOSIS 1. Skin, left cheek superior, [...] ON NEXT PAGE * ML=Testing performed at [facility] Lab DEPARTMENT OF PATHOLOGY, [address] [place] [address] Kervin Read M.D. Director [facility] # [id number] RUN DATE: 10/06/16 [facility] LAB LIVE PAGE 2 Patient: NABILA CLEARY [id number] (Continued) GROSS DESCRIPTION (Continued) Signed (signature on file) Fatuma Morrison MD 1331 END OF REPORT * ML=Testing performed at Main Lab DEPARTMENT OF PATHOLOGY, [address] [place] [address] Kervin Read M.D. Director [facility] # [id number] 9 Because ethnic data is not always [...] levels within this range. Test Performed by: [place] [address] Claims Associate: Brad Langley III, M.D. 12 Because ethnic [...] normal population are 25-80 Test Performed by: [place] [address] Claims Associate: Brad Langley III, M.D. 20 Test Performed by: [address] [address] Claims Associate: Brad Langley III, M.D. 21 CHOLESTEROL INTERPRETATION: [...] 0.06 ng/mL NOT SUPPORTIVE OF DIAGNOSIS OF MN 0.06 - 0.50 ng/ml INDETERMINATE: SUGGEST SERIAL STUDIES IF CLINICALLY INDICATED. Greater than 0.5 ng/mL CONSISTENT WITH DIAGNOSIS OF [place] . 28 INTERPRETATION %CK-MB < 5% NOT SUPPORTIVE OF DIAGNOSIS OF [place] 5 - <10% INDETERMINATE; SUGGEST SERIAL STUDIES IF CLINICALLY INDICATED 10% OR > CONSISTENT WITH DIAGNOSIS OF [place] . 29 Anion gap measurement may be [...] <15 (or dialysis) 32 Test Performed by: [facility] Dpt of Lab Med and Pathology [address] [place] [address] Claims Associate: Brad Langley III, M.D. 33 -- REFERENCE VALUE -- 25-HYDROXY D TOTAL (D2+D3) Optimum levels in the normal population are 25-80 Test Performed by: [facility] Dpt of Lab Med and Pathology [address] [place] [address] Claims Associate: Brad Langley III, M.D. 34 ---- RUN DATE: 07/13/06 [facility] NMI LIVE PAGE 1 RUN TIME: 1521 Specimen Inquiry RUN USER: INTERFACE [id number] NABILA CLEARY 60/F <[facility] 07/12> ([id number]) SDS Zupruk MD, Celestino M . -- Specimen: [id number] Spec Date: 07/11/[address]: Celestino Sierra MD Spec Type: SURGICAL P Received: 07/12/06 Copies to: Maryjo Joshi MD SPECIMEN L3 -L4 DISC HISTORY PRE-OP DIAGNOSIS: L3-L4 disc protrusion GROSS DESCRIPTION The specimen is received in formalin labelled Nabila Cleary, L3-L4 Disc and consists of multiple fragments of hill-mixon fibrous soft tissue measuring 2.5 x 1.5 x 0.6 cm. in aggregate. Box Shook Patcher sections, one cassette. DIAGNOSIS Intervertebral disc, L3-4, discectomy - Intervertebral disc material. Signed Electronically by: KERVIN READ MD 07/13/06 -- -- DEPARTMENT OF PATHOLOGY, [address] [place] [address] [facility] Permit #[id number] [place] II, M.D. Director KervinAlba Baker irector -- Procedures Date Code Description Status 03/22/2018 23395 EKG Tracing & Interpretation Completed 12/08/2017 08277 THR Total Hip Replacement Completed 12/08/2017 68366 THR Total Hip Replacement Completed 12/06/2017 61249 Diffusing Capacity Completed 12/06/2017 95771 Plethysmography Determination Lung Volumes & Per Completed Airway Resist 12/06/2017 23692 Pulmonary Function><Bronchodil Completed 11/27/2017 88920 Sleep Study Unattended,HRT Rate,Oxygen Sat,Resp Completed Effort/Airflow 11/23/2017 44426 EKG Tracing & Interpretation Completed 03/01/2017 35915 Admin Of Inj Completed 09/02/2016 65372 Admin Of Inj Completed 03/05/2016 79215 Chemotherpy Admin Subcutaneous/Im Non-Hormonal Completed Anti-Neoplastic 08/19/2015 [id number] Mammogram Completed 08/19/2015 [id number] Bone Mineral Density Test Completed 10/10/2013 98548 EKG Tracing & Interpretation Completed 08/22/2013 [id number] Mammogram Completed 11/11/2011 18612494 Colonoscopy Completed 08/10/2011 72034 EKG Tracing & Interpretation Completed 04/13/2011 82231 Noninvasive Ear Or Pulse Oximetry For Oxygen Completed Saturation 04/13/2011 82042 EKG Tracing & Interpretation Completed 03/18/2011 557360713 Bone Mineral Density Test Completed 02/18/2011 07828135 Mammogram Completed 02/10/2011 88658 Noninvasive Ear Or Pulse Oximetry For Oxygen Completed Saturation 02/03/2011 33659 Noninvasive Ear Or Pulse Oximetry For Oxygen Completed Saturation 12/10/2010 53934 Noninvasive Ear Or Pulse Oximetry For Oxygen Completed Saturation 12/03/2010 44473 Inhalation TX For Acute Airway Obstruction Completed W/Nebulizer/Inhaler 12/03/2010 31067 Noninvasive Ear Or Pulse Oximetry For Oxygen Completed Saturation 03/25/2010 89569 EKG Tracing & Interpretation Completed 09/24/2008 726510463 Bone Mineral Density Test Completed 09/12/2008 39167 EKG Tracing & Interpretation Completed 04/26/2008 35710 Noninvasive Ear Or Pulse Oximetry For Oxygen Completed Saturation 04/26/2008 39742 Noninvasive Ear Or Pulse Oximetry For Oxygen Completed Saturation 04/26/2008 35521 Inhalation TX For Acute Airway Obstruction Completed W/Nebulizer/Inhaler 09/06/2007 [id number] Mammogram Completed 07/13/2006 16498 EKG Tracing & Interpretation Completed 07/13/2006 83526 EKG Tracing & Interpretation Completed 07/11/2006 64949 Laminotomy W/Decomp NRV RT,One Interspace,Lumbar Completed 06/23/2006 68935 EKG Tracing & Interpretation Completed 04/29/2006 87197425 Mammogram Completed Encounters Type Date Location Provider Dx Diagnosis Office Visit 06/28/2018 [facility] Delia Brooks, J96.01 Acute respiratory 8:57a Assjcarlos cox M.D. failure with Hospitalists hypoxia J44.1 Chronic obstructive pulmonary disease w (acute) exacerbation [facility] Assocjcarlos M.D. failure with Hospitalists hypoxia J44.1 Chronic obstructive pulmonary disease w (acute) exacerbation Office Visit 06/26/2018 [facility] Lisbet J44.1 Chronic 8:56a [facility]los [facility] exacerb[facility] Office Visit 06/19/2018 [facility] Garrison Perez G35 Multiple sclerosis 11:15a Services Of Oj Mckeon M.D. 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 breath [place] I49.3 Ventricular premature depolarization Z87.891 Personal history of nicotine dependence J44.1 Chronic obstructive pulmonary disease w (acute) exacerbation Office Visit 12/26/2017 [facility] Genaro Gardner, I10 Essential 2:40p Medicine - N.P. (primary) [place] hypertension Office Visit 12/10/2017 [facility] Grzegorz West MD J44.9 Chronic 10:37a Assoc,pc obstructive Hospitalists pulmonary disease, unspecified E78.5 Hyperlipidemia, unspecified G35 Multiple sclerosis Office Visit 12/09/2017 10:37a [facility] Darlene J44.9 Chronic Assoc,[facility] Selina, obstructive Hospitalists FLIGHT TEACHER pulmonary disease, unspecified G35 Multiple sclerosis E78.5 Hyperlipidemia, unspecified Office Visit 12/08/2017 [facility] Bahgat J44.1 Chronic 10:36a Assoc,pc PENELOPE Wilson obstructive Hospitalists pulmonary disease w (acute) exacerbation E78.5 Hyperlipidemia, unspecified G35 Multiple sclerosis Office Visit 11/23/2017 2:00p [facility] Internal Hugo Rogers Z01.818 Encounter for other Medicine - FLIGHT TEACHER preprocedural [place] examination M16.12 Unilateral primary osteoarthritis, left hip J44.9 Chronic obstructive pulmonary disease, unspecified G35 Multiple sclerosis Office Visit 11/14/2017 Pulmonology And Laquita Z01.811 Encounter for 9:30a Sleep [facility] preprocedural [facility] respiratory examination M16.11 Unilateral primary osteoarthritis, right [...] osteoarthritis, left hip Office Visit 10/21/2017 4:00p [facility] Internal Jeni Gardner, H81.10 Benign paroxysmal Medicine - N.P. 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 side [place] J44.9 Chronic obstructive pulmonary disease, unspecified Office Visit 08/04/2016 2:20p [facility] Jeni Gardner, M79.661 Pain in right Medicine - N.P. lower leg [place] Z86.718 Personal history of other venous thrombosis and embolism Office Visit 07/22/2016 10:40a [facility] Jeni Gardner, M54.2 Cervicalgia Medicine - N.P. [place] Office Visit 07/07/2016 10:30a Orthopedic Akosua Guzman, M25.552 Pain in left hip Services Of Alba Savage M16.12 Unilateral primary osteoarthritis, left hip Office Visit 06/22/2016 10:00a [facility] Jeni Gardner, S39.013A Strain of Medicine - N.P. muscle, fascia [place] and tendon of pelvis, init encntr R10.32 Left lower quadrant pain Office Visit 04/16/2016 2:40p [facility] Hugo Rogers, J06.9 Acute upper Medicine - FLIGHT TEACHER respiratory [place] infection, unspecified J44.9 Chronic obstructive pulmonary disease, unspecified Office Visit 03/02/2016 Neurohospitalist Noemi Damico, G35 Multiple 9:30a Clinic FLIGHT TEACHER sclerosis J44.9 Chronic obstructive pulmonary disease, unspecified S39.013A Strain of muscle, fascia and tendon of pelvis, init encntr Z79.899 Other nursing home (current) drug therapy Office Visit 02/09/2016 11:20a [facility] Jeni Gardner, Z23 Encounter for Medicine - N.P. immunization [place] S39.013A Strain of muscle, fascia and tendon of pelvis, init encntr M81.0 Age-related osteoporosis w/o current pathological fracture Office Visit 10/24/2015 1:20p [facility] Jeni Gardner, M81.0 Age- related Medicine - N.P. osteoporosis w/o [place] current pathological fracture Office Visit 08/12/2015 10:40a [facility] Jeni Gardner, Z00.00 Encntr for general Medicine - N.P. adult medical exam [place] w/o abnormal findings Z12.31 Encntr screen mammogram for malignant neoplasm of breast J44.9 Chronic obstructive pulmonary disease, unspecified E78.0 Pure hypercholesterolemia G35 Multiple sclerosis M85.89 Oth disrd of bone density and structure, multiple sites F17.201 Nicotine dependence, unspecified, in remission F32.9 Major depressive disorder, single episode, unspecified Z23 Encounter for immunization Office Visit 04/30/2015 4:20p [facility] Hugo Rogers, J20.9 Acute bronchitis, Medicine - FLIGHT TEACHER unspecified [place] J44.1 Chronic obstructive pulmonary disease w (acute) exacerbation Office Visit 11/26/2014 10:00a [place] Trinity Ramirez Multiple Services Of [facility] Alba Mckeon Sclerosis 780.79 Malaise And Fatigue Other Office Visit 06/07/2014 10:00a [facility] Jeni Gardner, 496 COPD Airway Medicine - N.P. Obstruction [place] Chronic Not Class Elsewhere 724.5 Backache Unspec 733.00 Osteoporosis Unspec 720.2 Sacroiliitis Not Elsewhere Classified Office Visit 06/05/2014 2:20p [facility] Jeni Gardner, 724.5 Backache Unspec Medicine - N.P. [place] 720.2 Sacroiliitis Not Elsewhere Classified 728.85 Spasm Muscle Office Visit 04/10/2014 11:20a [facility] Jeni Gardner, 496 COPD Airway Medicine - N.P. Obstruction Chronic [place] Not Class Elsewhere Office Visit 03/27/2014 9:00a [facility] Jeni Gardner, 496 COPD Airway Medicine - N.P. Obstruction Chronic [place] Not Class Elsewhere Office Visit 03/21/2014 11:40a [facility] Jeni Gardner, 496 COPD Airway Medicine - N.P. Obstruction Chronic [place] Not Class Elsewhere Office Visit 11/27/2013 9:00a [facility] Jeni Gardner, 272.4 Hyperlipidemia Other Medicine - N.P. Unspec [place] 564.00 Constipation Unspecified Office Visit 10/23/2013 2:15p Iredellisidro Ramirez Multiple Services Of Oj Mckeon M.D. Sclerosis Office Visit 10/10/2013 2:00p [facility] Maryjo Madelyn, V70.0 Examination Medicine - M.D., FACP General Medical [place] Routine AT Health Care Facility V70.0 Examination General Medical Routine AT Health Care Facility V76.10 Screening For Malignant Neoplasm Breast 340 Multiple Sclerosis 496 COPD Airway Obstruction Chronic Not Class Elsewhere 530.81 Esophageal Reflux 300.00 Anxiety State Unspec 564.1 Irritable Bowel Syndrome 272.0 Hypercholesterolemia Pure 575.8 Gallbladder Disorders Other Spec Office Visit 09/04/2013 11:20a [facility] Maryjo Madelyn, 496 COPD Airway Medicine - M.D., FACP Obstruction Chronic [place] Not Class Elsewhere 530.81 Esophageal Reflux 575.8 Gallbladder Disorders Other Spec Office Visit 08/16/2013 3:40p [facility] Maryjo Madelyn, 496 COPD Airway Medicine - M.D., FACP Obstruction Chronic [place] Not Class Elsewhere 530.81 Esophageal Reflux Office Visit 04/19/2013 4:00p [facility] Maryjo Joshi, 466.0 Bronchitis Acute Medicine - M.D., FACP [place] Office Visit 02/22/2013 9:00a [facility] Maryjo Madelyn, 564.1 Irritable Bowel Medicine - M.D., FACP Syndrome [place] 496 COPD Airway Obstruction Chronic Not Class Elsewhere 300.00 Anxiety State Unspec 340 Multiple Sclerosis Office Visit 11/06/2012 11:20a [facility] Maryjolisa Joshi, 715.14 Osteoarthrosis Medicine - M.D., FACP Localized Prim Hand [place] 780.79 Malaise And Fatigue Other Office Visit 10/16/2012 11:20a [facility] Maryjo Madelyn, 780.79 Malaise And Medicine - M.D., FACP Fatigue Other [place] 785.6 Lymph Nodes Enlargement Office Visit 10/04/2012 2:45p Fuad Ramirez Multiple Services Of Oj Mckeon M.D. Sclerosis Office Visit 05/01/2012 9:40a [facility] Jeni Gardner, 340 Multiple Medicine - N.P. Sclerosis [place] 380.4 Impacted Cerumen 466.0 Bronchitis Acute Office Visit 04/27/2012 10:40a [facility] Jeni Gardner, 466.0 Bronchitis Acute Medicine - N.P. [place] 380.4 Impacted Cerumen Office Visit 03/03/2012 3:40p [facility] Jeni Roycen, 466.0 Bronchitis Acute Medicine - N.P. [place] Office Visit 11/08/2011 8:40a [facility] Jeni Varn, 268.9 Vitamin D Medicine - N.P. Deficiency Unspec [place] 272.4 Hyperlipidemia Other Unspec 305.1 Tobacco Use Disorder Office Visit 09/06/2011 4:20p [facility] Abida 528.6 Oral Soft Tissue Medicine - Alba Wadsworth Exlud Ginviva & [place] Tongue Leukoplakia Mucosa 923.10 Contusion Forearm Office Visit 08/10/2011 2:20p [facility] Maryjo Joshi, V70.0 Examination Medicine - Al[place], FACP General [facility] Routine AT Health Care Facility V76.10 Screening For Malignant Neoplasm Breast 496 COPD Airway Obstruction Chronic Not Class Elsewhere 733.90 Bone & Cartilage Disorder Unspec 305.1 Tobacco Use Disorder 401.1 Hypertension Benign 780.52 Insomnia Unspecified v72.60 Laboratory Examination, Unspecified Office Visit 04/15/2011 DO Not Use Jeni Varn, 723.1 Cervicalgia 10:00a [facility] N.P. Office Visit 04/13/2011 DO Not Use [...] DO Not Use Maryjolisa Joshi, V72.31 Routine [employer] Gavino Willis, FACP Examination 340 Multiple Sclerosis 496 COPD Airway Obstruction Chronic Not Class Elsewhere 733.00 Osteoporosis Unspec Office Visit 06/24/2008 DO Not Use Jeni 727.04 Tenosynovitis 2:00p Oj-Deysi Varn, N.P. Radial Styloid 719.41 Pain Joint Shoulder Region Office Visit 06/19/2008 DO Not Use Jeni Varn, 466.0 Bronchitis Acute 4:00p Oj-[place] N.P. 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 Infection Site Not Spec Office Visit [...] Health Care Facility 340 Multiple Sclerosis V06.1 Acuacpnaql-Yrmjasi-Decxdipg Combined (DTaP) Office Visit 12/30/2005 11:15a DO Not Use Maryjo Madelyn, 610.0 Cyst Breast [facility]-Deysi Willis, FACP Solitary 340 Multiple Sclerosis 272.4 Hyperlipidemia Other Unspec Plan of Treatment Future Appointment(s):08/31/2018 1:00 pm - Karli Brito NP at [facility]08/15/2018 2:20 pm - Jeni Gardner N.Jaden. at [facility] Internal Medicine - Lxvlghlsp48/29/2019 11:30 am - Laquita Lowe MD at [facility]07/26/2018 - Laquita Lowe, MDR06.83 QdnzngiP06.9 Chronic obstructive pulmonary disease, unspecifiedNew Medication: Prednisone 5 mg - 4 tab daily for 1 week, then 2 tab daily for 1 week, then 1 tab daily for 1 weekFollow up:1 month, ROBYN
[2018-08-20 13:06] VITALS: BP 145/71
--- NOTE | 2018-08-20 13:58 | UC ---
Shortness of Breath HPI - HPI Summary HPI Summary: 72 year old female with long standing history of COPD, emphysema, recently admitted ~ 2 months ago with bronchitis, present with wheezing x 2-3 days, keeping her up at night with the noise, recent cough this AM, productive, worse with lying on an incline (unable to lay flat), + sinus discomfort. Using nebulizers with combivent/ albuterol neb + inhalers. + ill contacts in family. FOllowing Dr. Lowe - History of Current Complaint Chief Complaint: UCRespiratory Stated Complaint: SORE THROAT Time Seen by Provider: 08/20/18 13:01 Hx Obtained From: Patient, Family/Trucking Contractor - daughter Hx Last Menstrual Period: POST ?: No Onset/Duration: Sudden Onset, Lasting Days Timing: Constant Current Severity: Mild Dyspnea At: [facility] Aggrevating Factors: Deep Breaths, Recumbent Position Alleviating Factors: Bronchodilators, Upright Position Associated Signs & Symptoms: Positive: Cough (Productive), Wheezing Related History: Similar Episode - Allergy/Home Medications Allergies/Adverse Reactions: Allergies Allergy/AdvReac Type Severity Reaction Status Date / Time amoxicillin [From Augmentin] Allergy Intermediate Hives Verified 08/20/18 12:56 clavulanic acid Allergy Intermediate Hives Verified 08/20/18 12:56 [From Augmentin] Sulfa (Sulfonamide Allergy Intermediate Hives Verified 08/20/18 12:56 Antibiotics) PMH/Surg Hx/FS Hx/Imm Hx Previously Healthy: Yes Other History Of: Anticoagulant Therapy - 81 mg aspirin, but she does not know why she is on this medication. Negative For: HIV, Hepatitis B, Hepatitis C - Surgical History Surgical History: Yes Surgery Procedure, Year, and Place: TONSILECTOMY; APPENDECTOMY; PARTIAL HYSTERECTOMY; EXPLORATORY THYROID; DISCECTOMY LOW BACK-2006; BREAST BIOPSY CLIP -Rt, LEFT HIP REPLACMENT 12/2017 - Family History Known Family History: Positive: Cardiac Disease, Diabetes Negative: Hypertension - Social History Alcohol Use: Rare Substance Use Type: None Smoking Status (MU): Former Smoker Type: Cigarettes, eCigarettes Amount Used/How Often: 1/2-pack per day for 40 years Length of Time of Smoking/Using Tobacco: 40 years Have You Smoked in the Last Year: Yes When Did the Patient Quit Smoking/Using Tobacco: 2011 - Immunization History Most Recent Influenza Vaccination: Fall 2017 Most Recent Pneumonia Vaccination: 2016 Review of Systems All Other Systems Reviewed And Are Negative: Yes Constitutional: Positive: Negative ENT: Positive: Sinus Congestion, Sinus Pain/Tenderness Respiratory: Positive: Shortness Of Breath, Cough Is Patient Immunocompromised?: No Physical Exam Triage Information Reviewed: Yes Appearance: Well-Appearing, No Pain Distress, Well-Nourished Vital Signs: Initial Vital Signs Temp 98.9 F 08/20/18 12:59 Pulse 83 08/20/18 12:59 Resp 20 08/20/18 12:59 BP 145/71 08/20/18 12:59 Pulse Ox 93 08/20/18 12:59 Vital Signs Reviewed: Yes Eyes: Positive: Conjunctiva Clear ENT: Positive: Pharynx normal, TMs normal, Sinus tenderness - frontal b/l, Uvula midline. Negative: TM bulging, TM dull, TM red, Tonsillar swelling, Tonsillar exudate Neck: Positive: Supple, Nontender, No Lymphadenopathy. Negative: Nuchal Rigidity Respiratory: Positive: No respiratory distress, No accessory muscle use, Decreased breath sounds - b/l lobes, Wheezing - expiratory b/l worse at bases. Negative: Respiratory distress, Rhonchi, Stridor, Plerual rub Cardiovascular: Positive: RRR, No Murmur Skin Exam: Normal Shortness of Breath Dx - Course Course Of Treatment: CXR- - Differential Dx/Diagnosis Differential Diagnosis/HQI/PQRI: Pneumonia Provider Diagnosis: Acute bronchiolitis Discharge - Sign-Out/Discharge Documenting (check all that apply): Patient Departure All imaging exams completed and their final reports reviewed: Yes - Discharge Plan Condition: Good Disposition: HOME Prescriptions: Levofloxacin TAB* [Levaquin 750 MG TAB*] 750 mg PO DAILY #7 tab predniSONE TAB* [Deltasone 20 MG TAB*] 20 mg PO DAILY #24 tab Patient Education Materials: COPD (Chronic Obstructive Pulmonary Disease) (ED) , Acute Bronchitis (ED), How to Use a Nebulizer (ED) Referrals: Jeni Gardner NP [Primary Care Provider] - Additional Instructions: - GO to ER with increased shortness of breath, cough - Increase fluids - ANtibiotics as directed - Steroids as directed - Contact Dr. Lowe for possible inhaled steroids - FOllow up with primary physician within 5 days for re-evaluation - Billing Disposition and Condition Condition: GOOD Disposition: Home
== END 2018-08-20 14:16 | disposition home or self-care (01) ==
LOC: UCEAST 11:26
DX: J44.0 Chronic obstructive pulmonary disease with (acute) lower respiratory infection (principal); J21.9 Acute bronchiolitis, unspecified; Z88.0 Allergy status to penicillin; Z88.2 Allergy status to sulfonamides; Z87.891 Personal history of nicotine dependence
CPT/HCPCS: 71046; 99212; G0463

== ENCOUNTER 2018-09-09 13:46 | Inpatient (IN) | payer MEDICARE, OTHER ==
[2018-09-09] MEDS ORDERED: Albuterol 0.5% CONC NEB.SOL* 5 MG/ML 20 ml BOT INH ONE (13:48)
--- NOTE | 2018-09-09 13:54 | ED ---
Shortness of Breath - HPI Summary HPI Summary: 72 year old F brought in by [facility] ambulance to [facility] from home accompanied by daughter complains of sudden onset shortness of breath since last night, . The patient rates the pain 0/10 in severity. Symptoms aggravated by nothing. Symptoms alleviated by nothing. EMS administered two Duoneb treatments and 10mg dexamethasone. Upon arrival to scene, O2 sat 92%. En route, O2 stat improved to 99%. Patient reports nonproductive cough for a couple days. She reports nasal congestion since yesterday. She reports chest pain last night for a few hours, now resolved. She reports abdominal discomfort. Patient denies fever, nausea, headache, dizziness, bilateral calf pain. Patient has hx COPD. She has Duoneb at home which she used once this morning. Patient does not have O2 at home. Patient has been hospitalized before, last time in June 2018. Patient sees Dr. Lowe, pulmonology. Patient has hx MS. Patient sees Dr. Mckeon, neurology. Daughter reports chronic left upper leg pain from injections for MS, which is aggravated by walking. Daughter reports intermittent ankle swelling but patient denies BLE swelling today. Patient is a former smoker. Vital signs while in room: HR 98 bpm, BP 177/97, O2 sat 99% Home Medications Medication Instructions Recorded Confirmed Type Albuterol 2.5MG/3ML (0.083%)* 1 vial INH TID PRN 08/20/13 06/25/18 History [Ventolin 2.5 MG/3 ML NEB.ROSALIO*] Ascorbic Acid [Vitamin C] 500 mg PO QAM 08/20/13 06/25/18 History Aspirin [Aspir-Low] 81 mg PO QAM 08/20/13 06/25/18 History Carisoprodol [Soma] 350 mg PO BEDTIME PRN 08/20/13 06/26/18 History Pregabalin [Lyrica] 100 mg PO BID 08/20/13 06/26/18 History Albuterol Sulfate [Ventolin Hfa] 1 - 2 puff INH Q4HR PRN 11/25/17 06/25/18 History Ipratropium 0.5MG/2.5ML NEB* 0.5 mg INH BID 11/25/17 06/25/18 History [Atrovent 0.5 MG NEB.ROSALIO*] Albuterol/Ipratropium RESP(NF) 2 puff INH RT.QID mdi 12/19/17 06/25/18 Rx [Combivent Respimat (NF)] Atorvastatin* [Lipitor 20 MG*] 20 mg PO 1700 tab 12/19/17 06/25/18 Rx Baclofen TAB* [Lioresal TAB*] 5 mg PO BID PRN #30 tab 12/19/17 06/25/18 Rx Venlafaxine EXT RELEASE CAP* 150 mg PO DAILY cap.sr 12/19/17 06/25/18 Rx [Effexor Xr CAP*] Denosumab(NF) [Prolia(NF)] 60 mg INJ SEE INSTRUCTIONS #0 06/28/18 06/26/18 Rx Levofloxacin TAB* [Levaquin 750 MG 750 mg PO DAILY #7 tab 08/20/18 Rx TAB*] predniSONE TAB* [Deltasone 20 MG 20 mg PO DAILY #24 tab 08/20/18 Rx TAB*] - History of Current Complaint Hx Obtained From: Patient, EMS Onset/Duration: Sudden Onset, Lasting Days - since last night, 09/08/18, Still Present Timing: Constant Aggrevating Factors: Nothing Alleviating Factors: Nothing - Allergy/Home Medications Allergies/Adverse Reactions: Allergies Allergy/AdvReac Type Severity Reaction Status Date / Time amoxicillin [From Augmentin] Allergy Intermediate Hives Verified 08/20/18 12:56 clavulanic acid Allergy Intermediate Hives Verified 08/20/18 12:56 [From Augmentin] Sulfa (Sulfonamide Allergy Intermediate Hives Verified 08/20/18 12:56 Antibiotics) PMH/Surg Hx/FS Hx/Imm Hx Previously Healthy: No Endocrine/Hematology History: Reports: Hx Anticoagulant Therapy - 81 mg aspirin , but she does not know why she is on this medication., Hx Thyroid Disease - hypothyroidism, Hx Anemia Denies: Hx Diabetes Cardiovascular History: Reports: Hx Deep Vein Thrombosis - hx 9 years ago (DVT bilateral lower legs)., Hx Hypercholesterolemia Denies: Hx Congestive Heart Failure, Hx Hypertension, Hx Myocardial Infarction, Hx Pacemaker/ICD, Other Cardiovascular Problems/Disorders Respiratory History: Reports: Hx Asthma, Hx Chronic Obstructive Pulmonary Disease (COPD), Hx Lung Cancer, Hx Pneumonia Denies: Hx Pulmonary Embolism, Hx Sleep Apnea - IN process of sleep studies Comment Only: Other Respiratory Problems/Disorders - HX PNEMONIA 2011 GI History: Reports: Other GI Disorders - bloating, occassional diarrhea Denies: Hx Gall Bladder Disease, Hx Gastrointestinal Bleed, Hx Ulcer, Hx Urosepsis History: Reports: Other Problems/Disorders - dribling incontinence @ [facility] Denies: Hx Dialysis, Hx Kidney Stones, Hx Renal Disease Musculoskeletal History: Reports: Hx Arthritis - Bilateral hips and hands, Hx Osteoporosis Denies: Other Musculoskeletal History Sensory History: Reports: Hx Contacts or Glasses - bi-focal Denies: Hx Hearing Aid Opthamlomology History: Reports: Hx Contacts or Glasses - bi-focal Neurological History: Reports: Hx Nerve Disease - Multiple Sclerosis, Other Neuro Impairments/Disorders - MS Denies: Hx Dementia, Hx Migraine, Hx Seizures, Hx Transient Ischemic Attacks (TIA) Psychiatric History: Reports: Hx Depression Denies: Hx Anxiety, Hx Panic Disorder, Hx Schizophrenia, Hx Bipolar Disorder , Other Psychiatric Issues/Disorders - Cancer History Hx Chemotherapy: No Hx Radiation Therapy: No - Surgical History Surgery Procedure, Year, and Place: TONSILECTOMY; APPENDECTOMY; PARTIAL HYSTERECTOMY; EXPLORATORY THYROID; DISCECTOMY LOW BACK-2006; BREAST BIOPSY CLIP -Rt, LEFT HIP REPLACMENT 12/2017 Hx Anesthesia Reactions: Yes - 1964- had a hard time waking her up from anesthesia - Immunization History Date of Influenza Vaccine: UTD Infectious Disease History: Denies: Hx Clostridium Difficile, Hx Hepatitis, Hx Human Immunodeficiency Virus (HIV), Hx of Known/Suspected MRSA, Hx Shingles - MS, Hx Tuberculosis, Hx Known/Suspected VRE, History Other Infectious Disease - Family History Known Family History: Positive: Cardiac Disease, Diabetes, Other - NS Negative: Hypertension - Social History Alcohol Use: Rare Hx Substance Use: No Substance Use Type: Reports: None Hx Tobacco Use: Yes Smoking Status (MU): Former Smoker Type: Cigarettes, eCigarettes Amount Used/How Often: 1/2-pack per day for 40 years Length of Time of Smoking/Using Tobacco: 40 years Have You Smoked in the Last Year: Yes Review of Systems Negative: Fever Positive: Other - nasal congestion Positive: Chest Pain - resolved Positive: Shortness Of Breath, Cough Positive: Other - abdominal discomfort. Negative: Nausea Musculoskeletal: Negative - Bilateral calf pain Neurological: Negative - Dizziness Negative: Headache All Other Systems Reviewed And Are Negative: Yes Physical Exam - Summary Physical Exam Summary: Appearance: Chronically ill-appearing, no pain distress, thin, moderate respiratory distress. Patient has PACs on the monitor, patient is hypertensive. Skin: Warm, color reflects adequate perfusion, dry Head: Normal Head/Face inspection, atraumatic Eyes: Conjunctiva clear ENT: Normal inspection Neck: Supple, no nodes, no JVD Respiratory: Moderate respiratory distress, expiratory wheezes in upper lung gonzalez, diminished throughout Cardio: RRR, No murmur, pulses normal, brisk capillary refill Abdomen: Soft, nontender Bowel sounds: Present Musculoskeletal: Strength Intact/ROM intact, no calf tenderness, no edema. Psychological: Normal Neuro: Alert, muscle tone normal, no focal deficit Triage Information Reviewed: Yes Vital Signs Reviewed: Yes Diagnostics - Laboratory Result Diagrams: 09/09/18 14:08 09/09/18 14:08 Lab Statement: Any lab studies that have been ordered have been reviewed, and results considered in the medical decision making process. - Radiology CXR Radiology Interpretation Completed By: Radiologist Summary of Radiographic Findings: COPD. NO ACTIVE CARDIOPULMONARY DISEASE. ED physician has reviewed this report. - EKG 1358 Cardiac Rate: Tachycardia - 96 BPM EKG Rhythm: Sinus Tachycardia ST Segment: Non-Specific Ectopy: PVCs, PACs EKG Comparison: No Significant Change - Compared to previous EKG 06/25/18, except ectopy Summary of EKG Findings: Nml AV/IV CT, nml QTc, and nml axis. No acute changes. Re-Evaluation - Re-Evaluation First Eval Re-Evaluation Time: 15:57 Change: Improved Comment: O2 stat 93% off oxygen. Lungs are clear. Patient is going to ambulate to bathroom with recorded oximetry. We will plan for disposition after. Second Eval Re-Evaluation Time: 16:59 Change: Unchanged Comment: HR 120 BPM, O2 sat 100% on 2L Course/Dx - Course Course Of Treatment: Patient medications reviewed this visit. Nurses notes reviewed. Allergies noted. High blood pressure noted. CXR shows COPD. NO ACTIVE CARDIOPULMONARY DISEASE. EKG shows no significant change from previous EKG on , except for ectopy, which is new. Rapid flu tests are negative for Influenza A and B. Bloodwork shows hematocrit 49, BUN/creatinine 23. In ED course, patient was given Albuterol after which patient was feeling better. Upon ambulation though, O2 sat in low 90s. Spoke with Dr. West, hospitalist, who accepts patient for admission. Patient is agreeable to admission plan. - Diagnoses Provider Diagnoses: COPD exacerbation, Elevated blood-pressure reading without diagnosis of hypertension - Physician Notifications Discussed Care of Patient With: Grzegorz West Time Discussed With Above Provider: 17:05 Instructed by Provider To: Other - Dr. West, hospitalist, agrees to admit patient Discharge - Sign-Out/Discharge Documenting (check all that apply): Patient Departure - Admit Patient Received Moderate/Deep Sedation with Procedure: No - Discharge Plan Condition: Stable Disposition: ADMITTED TO [facility] Referrals: Jeni Gardner NP [Primary Care Provider] - Additional Instructions: Return to the Emergency Department for new or worsening symptoms. - Attestation Statements Document Initiated by Scribe: Yes Documenting Scribe: Kristyn Vee Provider For Whom Scribe is Documenting (Include Credential): Jeny Zabala MD Scribe Attestation: Kristyn Zamarripa, scribed for Jeny Zabala MD on 09/09/18 at 1709. Status of Scribe Document: Ready
--- OUTSIDE RECORDS SUMMARY | 2018-09-09 13:55 | XMS REPORT | Continuity of Care Document ---
:1945 External Reference #:[id number] Author Name EnaZoey saul Care Team Providers Name Role Phone Abida Wadsworth MD Primary Care Physician Unavailable Payers Date Identification Numbers Payment Provider Subscriber Effective: 2012 Policy Number: [id number] Medicare Nabila Cleary PayID: [id number] [address] [place] [address] Effective: 2016 Policy Number: [id number] [employer] Nabila Cleary Expires: 2017 PayID: [id number] [address] [place] [address] Effective: 2012 Policy Number: [id number] [employer] Nabila Cleary Expires: 2016 PayID: [id number] [address] [address] Effective: 2009 Policy Number: [id number] [facility] Of [facility] Nabila Cleary Expires: 2011 Group Number: [id number] [address] PayID: [id number] [place] [address] Policy Number: [id number] [facility] Nabila Cleary PayID: [id number] [address] [place] [address] Advance Directives Description No Information Available Problems Active Problems Provider Date Chronic obstructive lung disease Maryjo Joshi M.D., FACP Onset: 12/03/2010 Multiple sclerosis Maryjo Joshi M.D., FACP Onset: 12/03/2010 Tobacco user Maryjo Joshi M.D., FACP Onset: 03/15/2011 Localized, primary osteoarthritis of the Akosua Guzman M.D. 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 Cigarette Use Pack Years - 46 Tobacco Use Start: Unknown Former Cigarette Smoker Quit 2012 Smoked End: Unknown for 40 years, 1ppd Tobacco Use Start: Unknown Vaping Not sure if it has nicotine, a couple times a day Smoking Status Reviewed: 08/31/18 Vaping Not sure if it has nicotine, [...] Type/Frequency Walks sporadically Allergies, Adverse Reactions, Alerts Active Allergies Reaction Severity Comments Date Augmentin HIVES Severe 12/01/2009 Sulfa hives Moderate 12/01/2009 Medications Active Medications SIG Qnty Indications Ordering Date Provider Anoro Ellipta 1 inhalation daily 60units J44.9 Karli 08/31/2018 OLENA Brito 62.5-25mcg/Inh Aerosol Baclofen 1/2 po qhs prn 45tabs Garrison Perez 06/19/2018 10mg ruben Mckeon M.D. Tablets Walker front wheeled 1units Akosua Guzman, 10/31/2017 [facility] carloz dx: severe M.D. b/L hip OA Nebulizer use three times a 1units Jeni Gardner, 07/18/2017 Device day as needed N.P. Prolia 1 ml q 6 months 1ml M81.0 Jeni Kendra, 10/24/2015 60mg/ml N.P. Solution Epipen 2-Ronal use one time as 2units M81.0 Jeni Kendra, 10/24/2015 directed N.P. 0.3mg/0.3ML Solution Auto-Inject Ventolin HFA 1 to 2 inhalations 1inhaler J44.9 Jeni Kendra, 08/12/2015 every 4 hours as N.P. 108(90Base) mcg/Act needed Aerosol Combivent Respimat inhale 2 puffs by 4units Jeni Gardner, 12/12/2014 mouth four times a N.P. 20-100mcg/Act day Aerosol Atorvastatin take 1 tablet by 90tabs E78.5 Jeni Gardner, 01/14/2014 Calcium mouth once daily N.P. 20mg Tablets Miralax 17 gm every day 238gm K59.00 Jeni Gardner, 11/27/2013 3350NF mixed w/ 8 oz N.P. Powder water/juice as needed Venlafaxine HCL ER take 1 capsule by 90caps Jeni Gardner, 02/22/2011 mouth once daily N.P. 150mg Caps ER 24HR maximum daily dose of 1 Albuterol Sulfate 1 vial via 60units J44.9 Jeni Gardner, 12/10/2010 nebulizer every 12 N.P. (2.5mg/3ML) 0.083% hours as needed Nebulizer Ipratropium [place] use twice daily in 60units J44.9 Jeni Kendra, 2010 nebulizer as N.P. 0.02% Solution needed Vitamin C 1 po qd Unknown 500mg Chewtabs Fish Oil 1 po qd Unknown 1200mg Capsules Lyrica take 1 tablet by 90caps Jeni Gardner, 100mg mouth 3 times N.P. Capsules daily. max/day=3 mdd 3 History Medications Prednisone 4 tab daily for 1 49tabs J44.9 Karli 07/26/2018 - 5mg week, then 2 tab OLENA Brito 08/15/2018 Tablets daily for 1 week, then 1 tab daily for 1 week Azithromycin two tabs day one, 6tabs R06.02 Jeni Gardner, 03/22/2018 - 250mg one daily till N.P. 04/01/2018 Tablets gone Prednisone 4 tablets by 40tabs R06.02 Jeni Gardner, 03/22/2018 - 10mg mouth for 4 days N.P. 04/07/2018 Tablets 3 tablets by mouth for 4 days 2 tablets by mouth for 4 days 1 tablet by mouth for 4 days Hydrocodone-Acetamin 1 tab by mouth 10tabs Akosua Guzman, 11/05/2017 - ophen twice a day as M.D. 06/12/2018 5-325mg Tablets needed for pain Tramadol HCL 1 tab twice a day 30tabs Akosua Guzman, 11/04/2017 - 50mg as needed for M.D. 06/12/2018 Tablets pain Advair Diskus inhale one dose 60units Jeni Gardner, 10/21/2017 - by mouth twice N.P. 07/25/2018 500-50mcg/Dose daily Aerosol Tamiflu 1 by mouth daily 10caps Jeni Gardner, 08/08/2017 - 75mg Capsules for 10 days N.P. 08/18/2017 Cipro one by nouth 14tabs Jeni Gardner, 07/19/2017 - 250mg Tablets twice daily for 7 N.P. 07/26/2017 days Copaxone inject 1 syringe 12ml Garrison Perez 03/16/2017 - 40mg/ml Soln under the skin Alba Mckeon 08/15/2018 Prefill Syringe three times a week Xarelto 1 by mouth twice 40tabs Jeni Gardner, 07/30/2016 - 15mg Tablets daily N.P. 12/28/2016 Meloxicam 1 by mouth every 30tabs Jeni Gardner, 07/21/2016 - 15mg day N.P. 08/04/2016 Tablets Naproxen 1 tablet with 30tabs M25.552 Akosua Guzman, 07/07/2016 - 500mg food by mouth M.D. 07/21/2016 Tablets twice a day Azithromycin 2 tabs by mouth 6tabs J44.9 Hugo Rogers NP 04/16/2016 - 250mg every day x1 day, 04/21/2016 Tablets 1 tab by mouth every day x 4 days Venlafaxine HCL ER 1 by mouth every 30caps F32.9 Jeni Gardner, 2015 - day N.P. 03/15/2017 75mg Caps ER 24HR Levaquin 1 by mouth every 10tabs Hugo Rogers NP 05/15/2015 - 500mg day 05/25/2015 Tablets Prednisone take 4 tab daily 16tabs Hugo Rogers NP 05/05/2015 - 10mg x 1 day then 3 05/15/2015 Tablets tab daily x 2 days, then 2 tab daily for 2 day, and 1 tab for 2 day. Azithromycin 2 tabs by mouth 6tabs J20.9 Hugo Rogers NP 04/30/2015 - 250mg every day x1 day, 05/06/2015 Tablets 1 tab by mouth every day x 4 days Tramadol HCL 1 tablet three to 30tabs 724.5 Jeni Gardner, 06/05/2014 - 50mg four times daily N.P. 06/19/2014 Tablets as needed Spacer Use this with 2units 496 Jeni Gardner, 03/27/2014 - your inhalers N.P. 11/25/2014 Omeprazole 1 by mouth every 90caps 530.81 Jeni Gardner, 08/16/2013 - 20mg day N.P. 11/25/[address] Aracely young 1 tsp by mouth 100cc 466.0 Maryjo Joshi, 04/19/2013 - every day every M.D., FACP 10/10/2013 100-10mg/5ML Syrup night as needed Azithromycin two tabs day one, 6tabs 466.0 Maryjo Joshi, 04/19/2013 - 250mg one daily till M.D., FACP 08/16/2013 Tablets gone Provigil 1 tablet twice 60tabs Garrison Perez 05/26/2012 - 200mg daily mdd 2 tabs Alba Mckeon 06/19/2018 Tablets Prednisone as directed 40tabs 466.0 Jeni Gardner 05/01/2012 - 10mg N.P. 05/17/2012 Tablets Azithromycin two tabs day one, 6tabs 466.0 Jeni Gardner, 04/27/2012 - 250mg one daily till N.P. 05/07/2012 Tablets gone Debrox 5 to 10 drops in 30ml 380.4 Jeni Gardner, 04/27/2012 - 6.5% Solution each ear twice N.P. 05/11/2012 daily Azithromycin two tabs day one, 6tabs 466.0 Jeni Gardner, 03/03/2012 - 250mg one daily till N.P. 03/13/2012 Tablets gone Prednisone as directed 140tabs 466.0 Jeni Gardner, 03/03/2012 - 5mg N.P. 03/19/2012 Tablets Robitussin ac 1 - 2 tsp q 4 hrs 120units 466.0 Jeni Cranegaviota, 03/03/2012 - prn cough N.P. 10/04/2012 Ergocalciferol one po once 8caps 268.9 Maryjo Joshi, 11/08/2011 - weekly M.D., FACP 01/07/2012 01939Ofzu Capsules Advair Diskus inhale 1 dose by 180units Jeni Cranegaviota, 06/16/2011 - mouth twice a day N.P. 10/21/2017 250-50mcg/Dose Aerosol Estrace 1 application two 42.500gm 596.9 Maryjo Joshi, 03/15/2011 - 0.1mg/GM times weekly M.D., FACP 04/27/2012 Cream Levofloxacin 1 po qd 7tabs 496 Maryjo Joshi, 02/03/2011 - 500mg M.D., FACP 04/15/2011 Tablets Advair Diskus 1 puff bid 1units Maryjo Joshi, 02/03/2011 - M.D., FACP 06/16/2011 500-50mcg/Dose Aerosol Alprazolam 1 tab three times 30tabs 300.00 Maryjo Joshi, 12/28/2010 - 0.25mg daily as needed M.D., FACP 08/10/2011 Tablets Prednisone 1 tablet by mouth 15tabs 496 Maryjo Joshi, 12/10/2010 - 10mg every morning for M.D., [facility] 02/03/2011 Tablets one week - then 1/2 tablet by mouth for one week - then 1/4 tablet by mouth for one week Robitussin ac 1-2 tsp at 4Oz 496 Maryjo Joshi, 12/10/2010 - bedtime as needed M.D., [facility] 08/09/2011 Solution Wellbutrin SR 1 by mouth every 30tabs 496 Maryjo Joshi, 12/10/2010 - 100mg Am M.D., [facility] 02/03/2011 Tablets ER 12HR Nebulizer use as directed J44.9 Maryjo Joshi, 12/10/2010 - M.D., [facility] 07/18/2017 Prednisone 4 tabs po qd x 4d 50tabs 496 Maryjo Joshi, 12/03/2010 - 5mg then 3 tabs po qd M.D., [facility] 12/10/2010 Tablets x 3d then 2 tabs po qd x 2d then 1 tab po qd x 1 d then 1/2 tab po qd x 2d. Levofloxacin 1 tab by mouth 7tabs 496 Maryjo Joshi, 12/03/2010 - 500mg every day M.D., [facility] 12/10/2010 Tablets Combivent inhale 2 puffs by 14.7units Jeni Gardner, 09/14/2010 - mouth tid N.P. 12/12/2014 18-103mcg/Act Aerosol Aspirin 1 by mouth once Abida 03/25/2010 - 81mg Tablets daily Alba Wadsworth 12/26/2017 Chantix use as directed 1units Maryjo Joshi, 12/02/2009 - Start Pack M.D., [facility] 03/25/2010 Effexor XR 1 tablet daily 90caps Maryjo Joshi, 12/01/2009 - 150mg Caps M.D., [facility] 02/22/2011 ER 24HR Soma 1 tab by mouth q6 90tabs Garrison Perez 12/01/2009 - 350mg Tablets hours as needed Alba Mckeon 06/19/2018 mdd 4 Oxycodone-Acetaminop Herminiopurgcristian, - divina Bearden MD 06/12/2018 5-325mg Tablets Warfarin Sodium [place], - 3mg MD Suleiman 06/12/2018 Tablets Warfarin Sodium [place], - 1mg MD Suleiman 06/12/2018 Tablets Baclofen 1 tablet bid as Unknown - 5mg Tablets needed 06/19/2018 Copaxone 1 inj daily 90units Garrison FrankWendy - 20mg/ml Charmaine Mckeon M.D. 03/16/2017 Prefill Syringe Lipitor 1 po qd 90tabs 272.4 Jeni Varn, - 20mg Tablets N.P. 01/14/2014 Alendronate Sodium take 1 tablet by 4tabs Maryjolisa Joshi, - mouth every week M.D., FACP 08/10/2011 70mg Tabs Azithromycin 2 tabs po day 1 6units Maryjo Joshi, - 250mg then 1 po qd til M.D., FACP 12/01/2009 done Cheratussin ac 1-2 tsp po qhs 118ml Maryjo Madelyn, - prn M.D., FACP 12/01/2009 100-10mg/5ML Combivent 1 Inhalation Madelyn Maryjo, - Twice A Day as 09/14/2010 103-18mcg/Act Needed Advair Diskus 1 inhalation 3months Maryjo Madelyn, - twice daily M.D., FACP 02/03/2011 250-50mcg/Dose Medications Administered in Office Medication SIG Qnty Indications Ordering Provider Date Prolia Injection, Denosumab, 1MG Nurse Visit A 03/01/2017 Injection Prolia Injection, Denosumab, 1MG Nurse Visit A 09/02/2016 Injection Prolia Injection, Denosumab, 1MG Nurse Visit A 03/05/2016 Injection Immunizations CPT Code Status Date Vaccine Reaction Lot # [id number] Given 02/09/2016 Influenza Virus Vaccine, no reaction noted [id number] Quadrivalent, Split, .... hh Preservative Free 35546 Given 08/12/2015 Pneumococcal Conjugate [id number] Vaccine 13 Valent For Intramuscular Use Q2039 Given 03/05/2015 Flu Vaccine NOS 88108 Given 02/26/2014 Fluzone High Dose Q2037 Given 04/18/2012 Fluvirin Im 3Yrs And Older Q2037 Given 04/18/2012 Fluvirin Im 3Yrs And Older [id number] 34814 Given 04/18/2012 Zoster (Zostavax) [id number] 67472 Given 02/03/2011 Influenza Virus 3Yrs & Over [id number] 47815 Given 03/20/2010 Influenza Virus 3Yrs & Over [id number] 16084 Given 04/24/2009 Administration Swine Flu Shot 26207 Given 04/24/2009 Influenza Virus Vaccine, Pandemic Formulation 84254 Given 02/24/2009 Influenza Virus 3Yrs & Over 77071 Given 02/16/2008 Pneumonia Vaccine 05231 Given 02/16/2008 Pneumonia Vaccine 88718 Given 02/16/2008 Influenza Virus 3Yrs & Over 53635 Given 04/18/2007 Influenza Virus 3Yrs & Over 48071 Given 06/23/2006 Tdap - Tetanus/Diptheria/Acellular Pertussis 36098 Given 06/23/2006 Tdap - Tetanus/Diptheria/Acellular Pertussis 38910 Given 04/04/2006 Influenza Virus 3Yrs & Over Vital Signs Date Vital Result Comment 08/31/2018 12:56pm Height 67 inches 5'7" Weight 123.00 lb Heart Rate 72 /min BP Systolic Sitting 150 mmHg Lue regular cuff BP Diastolic Sitting 80 mmHg Lue regular cuff Respiratory Rate 12 /min O2 % BldC Oximetry 92 % BMI (Body Mass Index) 19.3 kg/m2 08/22/2018 3:28pm Height 67 inches 5'7" Weight 124.12 lb Heart Rate 99 /min BP Systolic 130 mmHg BP Diastolic 70 mmHg Body Temperature 97.7 F O2 % BldC Oximetry 93 % BMI (Body Mass Index) 19.4 kg/m2 08/18/2018 1:32pm Heart Rate 75 /min BP [...] Diastolic 73 mmHg O2 % BldC Oximetry 21629 % BMI (Body Mass Index) 18.2 kg/m2 [...] Test Result H/L Range Note Laboratory test [facility] B-Type 15 pg/mL <=100 finding [address] [place] [address] Peptide BNP [phone] Inr/Protime [facility] Inr 0.86 N 0.77-1.[address] [place] [address] [phone] Laboratory test [facility] Partial Thrombo 27.9 seconds N 26.0-36.3 finding [address] [place] [address] [phone] Comp Metabolic [facility] Sodium 139 mmol/L N 135- 145 Panel [address] [place] [address] [phone] Potassium 4.2 mmol/L N 3.5-5.0 Chloride 102 [...] Egfr 105.0 >60 1 Laboratory test 06/25/2018 [facility] C Reactive < 1.00 mg/L N <8.[address] [place] [address] [phone] Troponin-I (TnI) 0.00 ng/mL <0.04 2 Lactic Acid 1.6 mmol/L N 0.5-2.0 3 CBC Auto Diff 11/25/2017 [facility] White Blood 5.7 10^3/uL N 3.5-10.[address] [place] [address] [phone] Red Blood Count 4.68 10^6/uL N 4.00-5.40 [...] Cells % 0 Comp Metabolic Panel 11/25/2017 [facility] Sodium 140 mmol/L N 135-[address] [place] [address] [phone] Potassium 4.1 mmol/L N 3.5-5.0 Chloride 103 [...] Egfr 151.1 >60 4 Urinalysis Profile 11/25/2017 [facility] Urine Color Yellow [address] [place] [address] [phone] Urine Appearance Clear Urine Specific [place] 1.017 N 1.010-1.030 Urine pH 6.0 N 5-9 Urine Urobilinogen Negative Negative Urine Ketones Negative Negative Urine Protein Negative Negative Urine Leukocytes Negative Negative Urine Blood Negative Negative Urine Nitrite Negative Negative Urine Bilirubin Negative Negative Urine Glucose Negative Negative Inr/Protime 11/25/2017 [facility] Inr 0.89 N 0.77-1.[address] [place] [address] [phone] Laboratory test 11/25/2017 [facility] Partial 27.4 seconds N 26.0-36.[address] [place] [place] [address] PTT [phone] Type & Screen 11/25/2017 [facility] Patient O Positive [address] [place] [address] [phone] Antibody Screen NEGATIVE Urine Culture And 11/25/2017 [facility] Urine Culture SEE RESULT [address] [place] [address] [phone] Urine Culture And 07/20/2017 [facility] Urine Culture SEE RESULT [address] BELOW [place], [place] [address] [phone] Laboratory test 10/01/2016 [facility] Surgical SEE RESULT 7 , [address] Pathology BELOW [place], [place] [id number] [phone] CBC Auto Diff 02/06/2016 [facility] White Blood 5.2 10^3/uL N 3.5-[address] Count 0.8 [place], [place] [id number] [phone] Red Blood Count 4.54 10^6/uL N 4.0-5.4 [...] % 0 N Comp Metabolic Panel 02/06/2016 [facility] Sodium 137 mmol/L N 133-145 [address] [place] [address] [phone] Potassium 4.2 mmol/L N 3.5-5.0 Chloride 103 [...] N >60 Egfr 135.2 N >60 9 Vitamin D, 25 11/13/2013 [facility] 25-Hydroxy Vitamin <4.0 ng/ mL N [address] [address] [phone] 25-Hydroxy Vitamin D3 28 ng/mL N 25-Hydroxy Vitamin D Total 28 ng/mL N 11 Comp Metabolic Panel 11/13/2013 [facility] Sodium 138 mmol/L N 133-145 [address] [place] [address] [phone] Potassium 4.1 mmol/L N 3.7-5.6 Chloride 104 [...] 148.4 N >60 12 Lipid Profile 11/13/2013 [facility] Triglycerides 53 mg/dL N 13 (Trig/Chol/HDL) [facility] [place] [address] [phone] Cholesterol 286 mg/dL N 14 HDL Cholesterol 73.8 mg/dL N 15 LDL Cholesterol 202 mg/dL N 16 Laboratory 11/13/2013 [facility] Hepatitis C Nonreactive N Nonreactive test finding [address] [facility] [place] [address] [phone] Basic 08/16/2013 [facility] Sodium 135 mmol/L N 133-[address] [facility] [place] [address] [phone] Potassium 5.2 mmol/L N 3.7-5.6 Chloride 99 mmol/L Low 101-111 Co2 Carbon Dioxide 31 mmol/L N 22-32 Anion Gap 5 mmol/L N 2-11 Glucose 73 mg/dL N 70-100 Blood Urea Nitrogen 13 mg/dL N 6-24 Creatinine 0.46 mg/dL Low 0.51-0.95 BUN/Creatinine Ratio 28.3 High 8-20 Calcium 9.6 mg/dL N 8.6-10.3 Egfr Non- 135.9 N >60 Egfr 174.8 N >60 17 Laboratory test 10/16/2012 [facility] TSH (Thyroid 2.25 0.34- 5.[address] [facility] Stimulating miu/[place] [address] Horm) [phone] CBC With Manual 10/16/2012 [facility] White Blood 5.9 4.8- 10.8 Diff [facility] DRIVE Count 10^3/[place] [address] [phone] Red Blood Count 4.46 10^6/uL 4.0-5.4 Hemoglobin [...] RBC Morphology Normal Normal Laboratory test 10/16/2012 [facility] LDH 190 U/L High 95-185 finding [address] [place] [address] [phone] Comp Metabolic 10/16/2012 [facility] Sodium 138 mmol/L 133- 145 Panel [address] [place] [address] [phone] Potassium 4.0 mmol/L 3.5-5.0 Chloride 103 mmol/L [...] Egfr 159.2 >60 18 Laboratory test 10/16/2012 [facility] C Reactive < 0.5 mg/dL Less than finding [address] Protein 0.5 [place] [address] [phone] Erythrocyte Sed Rate 16 mm/Hr 0-40 Comp Metabolic Panel 11/01/2011 [facility] Sodium 134 mmol/L Low 135-[address] [place] [address] [phone] Potassium 4.2 mmol/L 3.5-5.0 Chloride 102 mmol/L 101-111 Co2 (Carbon Dioxide) 29.0 mmol/L 22-32 Anion Gap 3.0 mmol/L 2-11 19 Glucose 101 mg/dL High 70-100 BUN 13 mg/dL 6-24 Creatinine 0.5 mg/dL Low 0.50-1.40 One Over Creatinine 2.00 BUN/Creatinine Ratio 26.0 High 8-20 Calcium 8.9 mg/dL 8.1-9.9 Total Protein 6.2 GM/DL 6.2-8.1 Albumin 3.9 GM/DL 3.2-5.2 Globulin 2.3 GM/DL 2-4 Albumin/Globulin Ratio 1.7 1-3 Bilirubin Total 0.7 mg/dL 0.4-1.5 20 Alkaline Phosphatase 64 U/L 30-110 Alt (SGPT) 20 U/L 14-54 Ast (Sgot) 23 U/L 12-42 eGFR Non- 124.2 > 60 eGFR 159.7 > 60 21 Lipid Profile 11/01/2011 [facility] Triglyceride 43 mg/dL 40- 200 (Trig/Chol/HDL) [address] [place] [address] [phone] Cholesterol 246 mg/dL High Less Than 200 22 High Density Lipoprotein 90 mg/dL High 40-60 23 Cholesterol/HDL Ratio 2.73 AVERAGE 1-4.44 Low Density Lipoprotein 147 mg/dL High Less Than 100 24 Laboratory test 11/01/2011 [facility] TSH 2.76 MIU/ML 0.34- 5.[address] [place] [address] [phone] Vitamin D, 25 11/01/2011 [facility] 25-Hydroxy <4.0 ng/mL () Hydroxy [address] Vitamin D2 [place] [address] [phone] 25-Hydroxy Vitamin D3 22 ng/mL () 25-Hydroxy Vitamin D Total 22 ng/mL Abnormal () 25 Vitamin D 1,25 11/01/2011 [facility] Vitamin D, 1,25 63 pg/mL 18-78 26 And Vitamin D,[address] [place] [address] [phone] Comp Metabolic 04/13/2011 [facility] Sodium 138 mmol/L 135- [address] [place] [address] [phone] Potassium 3.9 mmol/L 3.5-5.0 Chloride 101 mmol/L 101-111 Co2 (Carbon Dioxide) 29.0 mmol/L 22-32 Anion Gap 8.0 mmol/L 2-11 27 Glucose 95 mg/dL 70-100 BUN 11 mg/dL 6-24 Creatinine 0.5 mg/dL Low 0.50-1.40 One Over Creatinine 2.00 BUN/Creatinine Ratio 22.0 High 8-20 Calcium 8.8 mg/dL 8.1-9.9 Total Protein 6.2 GM/DL 6.2-8.1 Albumin 3.8 GM/DL 3.2-5.2 Globulin 2.4 GM/DL 2-4 Albumin/Globulin Ratio 1.6 1-3 Bilirubin Total 0.5 mg/dL 0.4-1.5 28 Alkaline Phosphatase 70 U/L 30-110 Alt (SGPT) 24 U/L 14-54 Ast (Sgot) 28 U/L 12-42 eGFR Non- 124.2 > 60 eGFR 159.7 > 60 29 CBC Auto Diff 04/13/2011 [facility] White Blood 5.2 CUMM 4.8- 10.[address] [place] [address] [phone] Red Cell Count 4.39 CUMM 4.2-5.4 Hemoglobin [...] Eosinophils 0.2 0-0.6 Abs Basophils 0.1 0-0.2 CKMB 04/13/2011 [facility] CKMB In NG/ML 4.3 NG/ML High 0.3- 4.[address] [place] [address] [phone] % CKMB 3 %MB 0-9 30 Laboratory test 04/13/2011 [facility] Troponin-I 0.01 NG/ML 0 -0.[address] [place] [address] [phone] Laboratory test 04/13/2011 [facility] CPK (Creatine 134 U/L 0 -[address] Kinase) [place] [address] [phone] Vitamin D, 25 03/19/2011 [facility] 25-Hydroxy <4.0 ng/mL () Hydroxy Vitamin [place]2 [place] [address] [phone] 25-Hydroxy Vitamin D3 37 ng/mL () 25-Hydroxy Vitamin D Total 37 ng/mL () 32 Vitamin D 1,25 03/19/2011 [facility] Vitamin D, 65 pg/mL 18- 78 33 And Vitamin D,2 DRIVE 1,25 [place] [address] [phone] Laboratory test 03/19/2011 [facility] TSH 2.89 0.34-5.60 finding MIU/[place] [address] [phone] Surgical 07/11/2006 [facility] Surgical [address] Pathology ------ [place] [address] <SEE NOTE> [phone] 1 Because ethnic data is not always [...] troponins reflex immediate secondary confirmatory testing. 3 [facility] Severe Sepsis and Septic Shock Management [...] [address]: Akosua Guzman MD Acct: [id number] Unit: [id number] AGE: 71 Location: [facility] Re11/25/17 SEX: F Status: REG REF SPEC: [id number] CUCA: 11/25/17 [facility] [address]: Akosua Guzman MD REQ: [id number] RECD: 11/25/17 STATUS: COMP TERESE DR: Hugo Rogers P[employer]P [employer]ESS [employer]ER _ SOURCE: URINE SPDESC: ORDERED: Urine Culture QUERIES: Urine Source: Clean Catch Procedure Result Reported Site Urine Culture Final 11/26/17- 1312 ML No Growth (<1,000 CFU/mL) * ML - Main Lab . END OF REPORT DEPARTMENT OF PATHOLOGY, [address] [place] [address] Kervin Read M.D. Director [facility] # [id number] 6 SEE RESULT BELOW Name: GASTONNABILA Izabel : [address]: Jeni Gardner NP Acct: [id number] Unit: [id number] AGE: 71 Location: [facility] Re07/20/17 SEX: F Status: REG REF SPEC: [id number] CUCA: 07/20/[address]: Jeni Gardner NP REQ: [id number] RECD: 07/20/17 STATUS: RAIZA GUDINO DR: Abida Wadsworth MD _ SOURCE: URINE SPDESC: ORDERED: Urine Culture Procedure Result Reported Site Urine Culture Final 07/22/17- 0854 ML Organism 1 ESCHERICHIA COLI [place] Count >100,000 (Many) CFU/ML 1. ESCHERICHIA COLI [...] . END OF REPORT DEPARTMENT OF PATHOLOGY, [address] [place] [address] Kervin Read M.D. Director [facility] # [id number] SEE RESULT BELOW Name: NABILA CLEARY Izabel : [address]: Adrian España MD Acct: [id number] Unit: [id number] AGE: 70 Location: [facility] Re10/01/16 SEX: F Status: REG REF SPEC: [id number] CUCA: 10/01/16-[address] [facility] [address]: Adrian España MD REQ: [id number] RECD: 10/01/16 STATUS: ZAFAR GUDINO DR: Dakota Gardner P[employer]P [employer]ENDER _ ORDERED: LEVEL 4/3 COMMENTS: [id number] FINAL DIAGNOSIS 1. Skin, left cheek superior, [...] performed at Main Lab DEPARTMENT OF PATHOLOGY, [address] [place] [address] Kervin Read M.D. Director [facility] # [id number] RUN DATE: 10/06/16 [facility] LAB LIVE PAGE 2 Patient: NABILA CLEARY [id number] (Continued) GROSS DESCRIPTION (Continued) Signed (signature on file) Fatuma Morrison MD 1331 END OF REPORT * ML=Testing performed at Main Lab DEPARTMENT OF PATHOLOGY, [address] [place] [address] Kervin Read M.D. Director [facility] # [id number] 9 Because ethnic data is not always [...] levels within this range. Test Performed by: [facility] [place] [address] Hospitality Specialist: Brad Langley III, M.D. 12 Because ethnic [...] 5 Kidney failure <15 (or dialysis) 19 Anion gap measurement may be of limited value in the presence of any alkalosis, especially in a combined acid base disorder. . 20 A metabolite of Naproxen, O-desmethylnaproxen, has been shown to interfere with the [place] method for measuring total bilirubin. Samples from patients who have taken Naproxen have shown spurious elevation in total bilirubin levels. 21 Because ethnic data is not always readily [...] 15-29 5 Kidney failure <15 (or dialysis) 22 CHOLESTEROL INTERPRETATION: Desirable: Less than 200 MG/DL Borderline-High Risk: 200-239 MG/DL High-Risk: 240 MG/DL and over 23 HDL INTERPRETATION: Undesirable: High Risk: Less than 40 MG/DL Desirable: Low Risk: Greater than 60 MG/DL 24 LDL INTERPRETATION: Low Risk Optimal Level: LDL Less than 100 MG/DL Near or Above Optimal: LDL 100-129 MG/DL Borderline High Risk: LDL 130-159 MG/DL High Risk: LDL 160-189 MG/DL Very High Risk: LDL Greater than 189 MG/DL 25 Interpretation: 10-24 (mild to moderate deficiency) -- REFERENCE VALUE -- 25-HYDROXY D TOTAL (D2+D3) Optimum levels in the normal population are 25-80 Test Performed by: [place] [address] Hospitality Specialist: Brad Langley III, M.D. 26 Test Performed by: [address] [address] Hospitality Specialist: Brad Langley III, M.D. 27 Anion gap measurement may be of limited value in the presence of any alkalosis, especially in a combined acid base disorder. . 28 A metabolite of Naproxen, O-desmethylnaproxen, has been shown to interfere with the [place] method for measuring total bilirubin. Samples from patients who have taken Naproxen have shown spurious elevation in total bilirubin levels. 29 Because ethnic data is not always readily [...] 15-29 5 Kidney failure <15 (or dialysis) 30 INTERPRETATION %CK-MB < 5% NOT SUPPORTIVE OF DIAGNOSIS OF MO 5 - <10% INDETERMINATE; SUGGEST SERIAL STUDIES IF CLINICALLY INDICATED 10% OR > CONSISTENT WITH DIAGNOSIS OF MO . 31 New Reference Range and Interpretation effective 02/16/2002 TnI (ng/ml) INTERPRETATION Less Than 0.06 ng/mL NOT SUPPORTIVE OF DIAGNOSIS OF MO 0.06 - 0.50 ng/ml INDETERMINATE: SUGGEST SERIAL STUDIES IF CLINICALLY INDICATED. Greater than 0.5 ng/mL CONSISTENT WITH DIAGNOSIS OF MO . 32 -- REFERENCE VALUE -- 25-HYDROXY D TOTAL (D2+D3) Optimum levels in the normal population are 25-80 Test Performed by: [facility] Med [facility] Pathology [address] [place] [address] Hospitality Specialist: Brad Langley III, M.D. 33 Test Performed by: [facility] [address] [place] [address] Hospitality Specialist: Brad Langley III, M.D. 34 ---- RUN DATE: 07/13/06 [facility] NMI LIVE PAGE 1 RUN TIME: 1521 Specimen Inquiry RUN USER: INTERFACE [id number] NABILA CLEARY 60/F <[facility] 07/12> ([id number]) VIC Allen MD, Celestino Nguyen -- Specimen: [id number] SOUT Spec Date: 07/11/[address]: Celestino Sierra MD Spec Type: SURGICAL P Received: 07/12/06-7813 Copies to: Maryjo Joshi MD SPECIMEN L3 -L4 DISC HISTORY PRE-OP DIAGNOSIS: L3-L4 disc protrusion GROSS DESCRIPTION The specimen is received in formalin labelled Nabila Cleary, L3-L4 Disc and consists of multiple fragments of hill-mixon fibrous soft tissue measuring 2.5 x 1.5 x 0.6 cm. in aggregate. Academic Advising Director sections, one cassette. DIAGNOSIS Intervertebral disc, L3-4, discectomy - Intervertebral disc material. Signed Electronically by: KERVIN READ MD 07/13/06 -- -- DEPARTMENT OF PATHOLOGY, [address] [place] [address] [facility] Permit #[id number] [place] II, M.D. Director Kervin Read M.D. Quality Process Lead D irector -- Procedures Date Code Description Status 07/19/2018 21031 Polysomnography Sleep Staging 4+ Parameters Completed 03/22/2018 67328 EKG Tracing & Interpretation Completed 12/08/2017 56905 THR Total Hip Replacement Completed 12/08/2017 69069 THR Total Hip Replacement Completed 12/06/2017 00113 Diffusing Capacity Completed 12/06/2017 97494 Plethysmography Determination Lung Volumes & Per Completed Airway Resist 12/06/2017 95210 Pulmonary Function><Bronchodil Completed 11/27/2017 35193 Sleep Study Unattended,HRT Rate,Oxygen Sat,Resp Completed Effort/Airflow 11/23/2017 50610 EKG Tracing & Interpretation Completed 03/01/2017 78642 Admin Of Inj Completed 09/02/2016 85361 Admin Of Inj Completed 03/05/2016 01386 Chemotherpy Admin Subcutaneous/Im Non-Hormonal Completed Anti-Neoplastic 08/19/2015 [id number] Mammogram Completed 08/19/2015 [id number] Bone Mineral Density Test Completed 10/10/2013 87181 EKG Tracing & Interpretation Completed 08/22/2013 [id number] Mammogram Completed 11/11/2011 [id number] Colonoscopy Completed 08/10/2011 23209 EKG Tracing & Interpretation Completed 04/13/2011 06606 Noninvasive Ear Or Pulse Oximetry For Oxygen Completed Saturation 04/13/2011 18456 EKG Tracing & Interpretation Completed 03/18/2011 [id number] Bone Mineral Density Test Completed 02/18/2011 [id number] Mammogram Completed 02/10/2011 62479 Noninvasive Ear Or Pulse Oximetry For Oxygen Completed Saturation 02/03/2011 36230 Noninvasive Ear Or Pulse Oximetry For Oxygen Completed Saturation 12/10/2010 28592 Noninvasive Ear Or Pulse Oximetry For Oxygen Completed Saturation 12/03/2010 95286 Inhalation TX For Acute Airway Obstruction Completed W/Nebulizer/Inhaler 12/03/2010 00006 Noninvasive Ear Or Pulse Oximetry For Oxygen Completed Saturation 03/25/2010 45085 EKG Tracing & Interpretation Completed 09/24/2008 [id number] Bone Mineral Density Test Completed 09/12/2008 35606 EKG Tracing & Interpretation Completed 04/26/2008 96661 Noninvasive Ear Or Pulse Oximetry For Oxygen Completed Saturation 04/26/2008 45190 Noninvasive Ear Or Pulse Oximetry For Oxygen Completed Saturation 04/26/2008 23470 Inhalation TX For Acute Airway Obstruction Completed W/Nebulizer/Inhaler 09/06/2007 [id number] Mammogram Completed 07/13/2006 51077 EKG Tracing & Interpretation Completed 07/13/2006 38237 EKG Tracing & Interpretation Completed 07/11/2006 16974 Laminotomy W/Decomp NRV RT,One Interspace,Lumbar Completed 06/23/2006 44849 EKG Tracing & Interpretation Completed 04/29/2006 [id number] Mammogram Completed Encounters Type Date Location Provider Dx Diagnosis Office Visit 08/31/2018 Pulmonology And Karli Marinelli44.9 Chronic 1:00p Sleep Services Of [facility] Brito obstructive Service Counter 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 obstructive pulmonary disease, unspecified R10.31 Right lower quadrant pain R60.0 Localized edema Office Visit 08/18/2018 1:15p Orthopedic Services Akosua Guzman, M25.552 Pain in left Of C.M.A. M.D. hip Z96.642 Presence of left artificial hip joint M79.652 Pain in left thigh M62.81 Muscle weakness (generalized) M16.12 Unilateral primary osteoarthritis, left hip Office Visit 07/26/2018 11:00a Pulmonology And Sleep Laquita Mynor, R06.83 Snoring Services Of [facility] J44.9 Chronic obstructive pulmonary disease, unspecified Office Visit 06/28/2018 8:57a [facility] Delia J96.01 Acute respiratory Assoc,jcarlos Brooks M.D. failure with Hospitalists hypoxia J44.1 Chronic obstructive pulmonary disease w (acute) exacerbation Office Visit 06/27/2018 8:56a [facility] Delia J96.01 Acute respiratory Assoc,jcarlos Brooks M.D. failure with Hospitalists hypoxia J44.1 Chronic obstructive pulmonary disease w (acute) exacerbation Office Visit 06/26/2018 [facility] Lisbet J44.1 Chronic 8:56a Assoc,jcarlos Robertson MD obstructive Hospitalists pulmonary disease w (acute) exacerbation Office Visit 06/19/2018 [facility] Garrison Perez G35 Multiple sclerosis 11:15a Services Of [facility] Alba Mckeon Z79.899 Other intermediate (current) drug therapy Office Visit 06/13/2018 9:15a Pulmonology And Laquita J44.9 Chronic Sleep Services Of MD Mynor obstructive [facility] pulmonary disease, unspecified R06.83 Snoring Office Visit 03/22/2018 11:00a [facility] Internal Jeni Gardner, R06.02 Shortness of Medicine N.P. breath I49.3 Ventricular premature depolarization Z87.891 Personal history of nicotine dependence J44.1 Chronic obstructive pulmonary disease w (acute) exacerbation Office Visit 12/26/2017 [facility] Internal Jeni Gardner, I10 Essential 2:40p Medicine N.P. (primary) hypertension Office Visit 12/10/2017 [facility] Grzegorz West MD J44.9 Chronic 10:37a Assoc,pc obstructive Hospitalists pulmonary disease, unspecified E78.5 Hyperlipidemia, unspecified G35 Multiple sclerosis Office Visit 12/09/2017 10:37a [facility] Darlene J44.9 Chronic Assoc,pc Emory Marks, obstructive Hospitalists [employer] TENDER pulmonary disease, unspecified G35 Multiple sclerosis E78.5 Hyperlipidemia, unspecified Office Visit 12/08/2017 [facility] Jeremias J44.1 Chronic 10:36a Assoc,pc PENELOPE Wilson obstructive Hospitalists pulmonary disease w (acute) exacerbation E78.5 Hyperlipidemia, unspecified G35 Multiple sclerosis Office Visit 11/23/2017 2:00p [facility] Internal Hugo Rogers, Z01.818 Encounter for other Medicine PULP PRESS TENDER preprocedural examination M16.12 Unilateral primary osteoarthritis, left hip J44.9 Chronic obstructive pulmonary disease, unspecified G35 Multiple sclerosis Office Visit 11/14/2017 Pulmonology And Laquita Z01.811 Encounter for 9:30a Sleep Services Of MD Mynor preprocedural [facility] respiratory examination M16.11 Unilateral primary osteoarthritis, [...] osteoarthritis, left hip Office Visit 10/21/2017 4:00p [facility] Internal Jeni Gardner, H81.10 Benign paroxysmal Medicine N.P. vertigo, unspecified ear M25.552 Pain in left hip J44.9 Chronic obstructive pulmonary disease, unspecified H61.21 Impacted cerumen, right ear Office Visit 03/16/2017 10:30a Neurohospitalist Garrison Perez G35 [facility] Alba Mckeon sclerosis Z79.899 Other intermediate (current) drug therapy Office Visit 01/07/2017 11:00a [facility] Internal Shane Andrea R60.0 Localized edema Medicine - [place] Office Visit 12/28/2016 1:00p [facility] Internal Jeni Gardner M54.31 Sciatica , right Medicine N.P. side J44.9 Chronic obstructive pulmonary disease, unspecified Office Visit 08/04/2016 2:20p [facility] Internal Jeni Gardner M79.661 Pain in right Medicine N.P. lower leg Z86.718 Personal history of other venous thrombosis and embolism Office Visit 07/22/2016 10:40a [facility] Internal Joce Rogers4.2 Cervicalgia Medicine N.P. Office Visit 07/07/2016 10:30a Orthopedic Akosua Guzman, M25.552 Pain in left hip Services Of Alba Savage M16.12 Unilateral primary osteoarthritis, left hip Office Visit 06/22/2016 10:00a [facility] Internal Jeni Gardner, S39.013A Strain of Medicine N.P. 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 immunization S39.013A Strain of muscle, fascia and tendon of pelvis, init encntr M81.0 Age-related osteoporosis w/o current pathological fracture Office Visit 10/24/2015 1:20p [facility] Internal Jeni Gardner, M81.0 Age- related Medicine N.P. osteoporosis w/o current pathological fracture Office Visit 08/12/2015 10:40a [facility] Internal Jeni Gardner, Z00.00 Encntr for [...] Encounter for immunization Office Visit 04/30/2015 4:20p [facility] Internal Hugo Rogers, J20.9 Acute bronchitis, Medicine PULP PRESS TENDER unspecified J44.1 Chronic obstructive pulmonary disease w (acute) exacerbation Office Visit 11/26/2014 10:00a [place] [facility] Garrison S. 340 Multiple Services Of Oj Mckeon M.D. Sclerosis 780.79 Malaise And Fatigue Other Office Visit 06/07/2014 10:00a [facility] Internal Jeni Gardner, 496 COPD Airway Medicine N.P. Obstruction Chronic Not Class Elsewhere 724.5 Backache Unspec 733.00 Osteoporosis Unspec 720.2 Sacroiliitis Not Elsewhere Classified Office Visit 06/05/2014 2:20p [facility] Internal Jeni Gardner, 724.5 Backache Unspec Medicine N.P. 720.2 Sacroiliitis Not Elsewhere Classified 728.85 Spasm Muscle Office Visit 04/10/2014 11:20a [facility] Internal Jeni Gardner, 496 COPD Airway Medicine N.P. Obstruction Chronic Not Class Elsewhere Office Visit 03/27/2014 9:00a [facility] Internal Jeni Gardner, 496 COPD Airway Medicine N.P. Obstruction Chronic Not Class Elsewhere Office Visit 03/21/2014 11:40a [facility] Internal Jeni Gardner, 496 COPD Airway Medicine N.P. Obstruction Chronic Not Class Elsewhere Office Visit 11/27/2013 9:00a [facility] Internal Jeni Gardner, 272.4 Hyperlipidemia Other Medicine N.P. Unspec 564.00 Constipation Unspecified Office Visit 10/23/2013 2:15p Fuad Perez 340 Multiple Services Of Oj Mckeon M.D. Sclerosis Office Visit 10/10/2013 2:00p [facility] Internal Maryjo Joshi, V70.0 Examination Medicine Alba, FACP General Medical Routine AT Health Care Facility V70.0 Examination General Medical Routine AT Health Care Facility V76.10 Screening For Malignant Neoplasm Breast 340 Multiple Sclerosis 496 COPD Airway Obstruction Chronic Not Class Elsewhere 530.81 Esophageal Reflux 300.00 Anxiety State Unspec 564.1 Irritable Bowel Syndrome 272.0 Hypercholesterolemia Pure 575.8 Gallbladder Disorders Other Spec Office Visit 09/04/2013 11:20a [facility] Internal Maryjo Joshi, Presley6 COPD Airway Medicine MWaldemar, FACP Obstruction Chronic Not Class Elsewhere 530.81 Esophageal Reflux 575.8 Gallbladder Disorders Other Spec Office Visit 08/16/2013 3:40p [facility] Internal Maryjo Joshi, 496 COPD Airway Medicine Alba, FACP Obstruction Chronic Not Class Elsewhere 530.81 Esophageal Reflux Office Visit 04/19/2013 4:00p [facility] Internal Maryjo Madelyn, 466.0 Bronchitis Acute Medicine Alba, FACP Office Visit 02/22/2013 9:00a [facility] Internal Maryjo Madelyn, 564.1 Irritable Bowel Medicine Alba, FACP Syndrome 496 COPD Airway Obstruction Chronic Not Class Elsewhere 300.00 Anxiety State Unspec 340 Multiple Sclerosis Office Visit 11/06/2012 11:20a [facility] Internal Maryjo Madelyn, 715.14 Osteoarthrosis Medicine Alba, FACP Localized Prim Hand 780.79 Malaise And Fatigue Other Office Visit 10/16/2012 11:20a [facility] Internal Maryjo Madelyn, 780.79 Malaise And Medicine Alba, FACP Fatigue Other 785.6 Lymph Nodes Enlargement Office Visit 10/04/2012 2:45p [place] Trinity Perez 340 Multiple Services Of Oj Mckeon M.D. Sclerosis Office Visit 05/01/2012 9:40a [facility] Internal Jeni Gardner, 340 Multiple Medicine N.P. Sclerosis 380.4 Impacted Cerumen 466.0 Bronchitis Acute Office Visit 04/27/2012 10:40a [facility] Internal Jeni Varn, 466.0 Bronchitis Acute Medicine N.P. 380.4 Impacted Cerumen Office Visit 03/03/2012 3:40p [facility] Internal Jeni Varn, 466.0 Bronchitis Acute Medicine N.P. Office Visit 11/08/2011 8:40a [facility] Internal Jeni Cranen, 268.9 Vitamin D Medicine N.P. Deficiency Unspec 272.4 Hyperlipidemia Other Unspec 305.1 Tobacco Use Disorder Office Visit 09/06/2011 4:20p [facility] Internal [place] 528.6 Oral Soft Tissue Medicine Alba Wadsworth Exlud Ginviva & Tongue Leukoplakia Mucosa 923.10 Contusion Forearm Office Visit 08/10/2011 2:20p [facility] Internal Maryjo Joshi, V70.0 Examination Medicine Alba, FACP General Medical Routine AT Health Care Facility V76.10 Screening For Malignant Neoplasm Breast 496 COPD Airway Obstruction Chronic Not Class Elsewhere 733.90 Bone & Cartilage Disorder Unspec 305.1 Tobacco Use Disorder 401.1 Hypertension Benign 780.52 Insomnia Unspecified v72.60 Laboratory Examination, Unspecified Office Visit 04/15/2011 DO Not Use Jeni Vargaviota, 723.1 Cervicalgia 10:00a [facility]-Deysi N.P. Office Visit 04/13/2011 DO Not Use Maryjo Madelyn, 786.59 Pain Chest Other 10:00a Gavino Willis, FACP 723.1 Cervicalgia Office Visit 03/15/2011 10:00a DO Not Use Maryjo Madelyn, 596.9 Bladder Oj-Deysi Willis, FACP Disorders Unspec 300.00 Anxiety State [...] Use Jeni Varn, 466.0 Bronchitis Acute 3:45p Service Counter Cashier-[employer] N.P. Office Visit 04/24/2009 DO Not Use Maryjolisa Joshi, 496 COPD Airway 2:00p Gavino Willis, FACP Obstruction Chronic Not Class Elsewhere 340 Multiple Sclerosis V04.81 Need For Prophylactic Vaccination & Inoculation/Influenza Office Visit 04/04/2009 4:30p DO Not Use [place], 708.9 Urticaria Gavino Mckinney M.D. Unspec 496 COPD Airway Obstruction Chronic Not Class Elsewhere 340 Multiple Sclerosis Office Visit 03/19/2009 DO Not Use Jeni Kendra, 461.9 Sinusitis Acute 2:30p Service Counter [employer] N.P. Unspec Office Visit 10/02/2008 DO Not Use Maryjo Joshi, 496 COPD Airway 2:45p Gavino Willis, FACP Obstruction Chronic Not Class Elsewhere 340 Multiple Sclerosis 780.79 Malaise And Fatigue Other Office Visit 09/12/2008 3:00p DO Not Use Maryjolisa Joshi, V72.31 Routine Ict Trainer Gavino Willis, FACP Examination 340 Multiple Sclerosis 496 COPD Airway Obstruction Chronic Not Class Elsewhere 733.00 Osteoporosis Unspec Office Visit 06/24/2008 DO Not Use Jeni 727.04 Tenosynovitis 2:00p Oj-Deysi Cranen, N.P. Radial Styloid 719.41 Pain Joint Shoulder Region Office Visit 06/19/2008 DO Not Use Jeni Varn, 466.0 Bronchitis Acute 4:00p Service Counter [employer]ier[employer] N.P. Office Visit 04/26/2008 DO Not Use Maryjolisa Joshi, 496 COPD Airway 3:45p Gavino Willis, FACP Obstruction Chronic Not Class Elsewhere 466.0 Bronchitis Acute Office Visit 04/15/2008 DO Not Use Jeni Varn, 611.72 Lump Or Mass 3:30p Service Counter [employer]ier[employer] N.P. Breast Office Visit 02/16/2008 DO Not [...] Jeni Gardner, 599.0 UTI Urinary Tract 3:45p Oj-[employer] N.P. Infection Site Not Spec Office Visit 03/28/2007 Neurosurgery Celestino Mercado 724.2 Lumbago 3:30p Services Of Oj Allen M.D. Office Visit 02/07/2007 DO Not Use Jeni Gardner, 564.00 Constipation 11:45a Gavino N.P. Unspecified 465.9 URI Upper Respiratory Infections Acute Unspec Sites 708.9 Urticaria Unspec Office Visit 01/24/2007 3:30p Neurosurgery Celestino Mercado Services Of Oj Allen M.D. Office Visit 12/29/2006 2:30p DO Not Use Maryjo Joshi, 780.79 Malaise And Gavino Willis, FACP Fatigue Other 340 Multiple Sclerosis 709.9 Skin & Subcutaneous Tissue Disorders Unspec 724.02 Spinal Stenosis, Lumbar Region, W/O Neurogenic Claudication Office Visit 12/08/2006 10:30a Neurosurgery Celestino Mercado Services Of Oj Allen M.D. Office Visit 09/20/2006 12:00p DO Not Use Maryjo Joshi 780.79 Malaise And Gavino Willis, FACP Fatigue Other Office Visit 09/09/2006 11:00a DO Not Use Maryjo Joshi, 340 Multiple Gavino Willis, FACP Sclerosis 780.79 Malaise And Fatigue Other 733.90 Bone & Cartilage Disorder Unspec Office Visit 08/04/2006 11:45a DO Not Use Maryjo Madelyn, 340 [facility] Sclerosis 733.00 Osteoporosis Unspec Office Visit 07/21/2006 3:00p DO Not Use Maryjo Madelyn, 340 Multiple [facility] FACP Sclerosis 724.2 Lumbago Office Visit 07/08/2006 Chung Mercado 722.10 Intervertebral Disc 11:00a Progressive Alba Allen Displacement Lumbar Neurosurgery W/O Myelopathy Office Visit 07/04/2006 DO Not Use Jeni 720.2 Sacroiliitis Not 4:00p [facility]-Deysi Gardner, N.P. Elsewhere Classified 719.45 Pain Joint Pelvic Region & Thigh 340 Multiple Sclerosis 564.00 Constipation Unspecified Office Visit 06/23/2006 2:30p DO Not Use Maryjo Madelyn, V70.[address] [facility] F[facility] General Medical Routine AT Health Care Facility 340 Multiple Sclerosis V06.1 Bfrjqrbruk-Gzepuew-Hbyyrwqr Combined (DTaP) Office Visit 12/30/2005 11:15a DO Not Use Maryjo Madelyn, 610.0 Cyst Breast [facility] F[facility] Solitary 340 Multiple Sclerosis 272.4 Hyperlipidemia Other Unspec Plan of Treatment Future Appointment(s):10/02/2018 3:30 pm - [facility]/21/2018 1:45 pm - Garrison Mckeon M.D. at [place] [facility]10/18/2018 2:20 pm - Jeni Gardner, N.P. at [facility] Internal Rsxhjqrn50/29/2019 11:30 am - Laquita Lowe MD at Pulmonology [facility] Sleep [facility]08/31/2018 - Karli Brito, NPJ44.9 Chronic obstructive pulmonary disease, unspecifiedNew Medication:Anoro Ellipta 62.5-25 mcg/Inh - 1 inhalation dailyReferral:Shila Caldera, PT, DPT, Physical TherapistFollow up:Pt already has appt with Dr Lowe in NovemberRecommendations: Pulmonary Rehab/Physical Therapy: Shila Caldera, PT, DPT, [facility]
[2018-09-09 14:19] LABS: ABS Basophils 0 10^3/ul (0-0.2); ABS Eosinophils 0.1 10^3/ul (0-0.6); ABS Lymphocytes 1.3 10^3/ul (1.0-4.8); ABS Monocytes 0.4 10^3/ul (0-0.8); ABS Neutrophils 5.9 10^3/ul (1.5-7.7); ABS Nucleated RBC 0 10^3/ul; Eosinophil % 1.4 %; Hematocrit 49 % (33-41); Hemoglobin 16.6 g/dL (12.0-16.0); Lymphocyte % 16.6 %; Mean Corpuscular HGB Conc 34 g/dL (31-36); Mean Corpuscular Hemoglobin 32 pg (27-31); Mean Corpuscular Volume 92 fL (80-97); Mean Platelet Volume 7.7 fL (7.4-10.4); Nucleated Red Blood Cells % 0.2; Platelet Count 289 10^3/uL (150-450); Red Blood Count 5.26 10^6 /uL (3.70-4.87); Red Cell Distribution Width 14 % (10.5-15); White Blood Count 7.8 10^3/uL (3.5-10.8)
[2018-09-09 14:31] LABS: Activated Partial Thrombo Time 27.4 seconds (26.0-36.3); INR 0.94 (0.82-1.09)
[2018-09-09 14:40] LABS: Troponin I 0.01 ng/mL (<0.04)
[2018-09-09 14:45] LABS: ALT 13 U/L (7-52); AST 16 U/L (13-39); Albumin 4.2 g/dL (3.2-5.2); Albumin/Globulin Ratio 1.4 (1-3); Alkaline Phosphatase 63 U/L (34-104); Anion Gap 7 mmol/L (2-11); Blood Urea Nitrogen 14 mg/dL (6-24); C Reactive Protein < 1.00 mg/L (<8.01); CO2 Carbon Dioxide 29 mmol/L (22-32); Calcium 9.7 mg/dL (8.6-10.3); Chloride 104 mmol/L (101-111); Creatine Kinase 51 U/L (10-223); EGFR Non-African American 96.7 (>60); Globulin 2.9 g/dL (2-4); Glucose 93 mg/dL (70-100); Potassium 4.5 mmol/L (3.5-5.0); Sodium 140 mmol/L (135-145); Total Protein 7.1 g/dL (6.4-8.9)
[2018-09-09 16:00] LABS: Influenza A Molecular NEGATIVE (Negative); Influenza B Molecular NEGATIVE (Negative)
[2018-09-09] MEDS ORDERED: Acetaminophen TAB* 325 MG PO PRN (18:38)
[2018-09-09] MEDS ORDERED: Albuterol HFA INHALER* 8 gm MDI INH PRN (18:41)
[2018-09-09] MEDS ORDERED: Baclofen TAB* 10 MG PO PRN (18:41)
[2018-09-09] MEDS ORDERED: Albuterol 2.5 MG/3 ML NEB.SOL* (0.083%) INH PRN (18:41)
[2018-09-09] MEDS ORDERED: Enoxaparin(*) 40 MG/0.4 ML SYR SUBCUT SCH (19:00)
--- NOTE | 2018-09-09 21:06 | HP ---
HOSPITAL MEDICINE HISTORY AND PHYSICAL: DATE OF ADMISSION: 09/09/18 PROVIDER: Shelly Francois NP PRIMARY CARE PROVIDERS: OLENA Rogers Dr[address] ATTENDING PHYSICIAN WHILE IN THE HOSPITAL: Dr. Estevan Lara* (dictated by Shelly Francois NP). CHIEF COMPLAINT: Shortness of breath. HISTORY OF PRESENT ILLNESS: Ms. Cleary is a 72-year-old female with past medical history significant for multiple sclerosis, osteoarthritis, COPD who presented to the emergency room with complaints of shortness of breath that started last p.m. The patient reports that last night she was unable to go to sleep because she was so short of breath. She reports that she was restless most of the night and it was very difficult for her to walk to the bathroom due to her shortness of breath. This morning when she got up, she did her nebulizer because she remained short of breath with no improvement of her symptoms. She reports that she tried to use her Combivent inhaler, but was unable to take a deep breath to use her inhaler. Due to her symptoms not improving after her nebulizer, she called EMS and was brought to the emergency room for further evaluation. The patient reports that she has had a cough that has been nonproductive x2 days. She also reports that her family has had upper respiratory tract infections as well. The patient received breathing treatments and steroids by EMS and then breathing treatment in the emergency room. She does report that after the breathing treatments and steroids that her breathing has greatly improved and she is feeling much better. While in the emergency room, she had a routine lab work drawn and the patient was assisted to the commode in her room and did have O2 saturations drop to 89% on room air. She had 2 L nasal cannula applied and she has been able to maintain O2 saturations between 95% and 97%. Due to her shortness of breath and COPD exacerbation, we were asked to see and evaluate her for admission. PAST MEDICAL HISTORY: Significant for: 1. MS. 2. Osteoarthritis. 3. COPD. 4. History of DVT with surgery, not on anticoagulation. PAST SURGICAL HISTORY: 1. Left hip replacement. 2. Partial hysterectomy. 3. Lower back surgery. 4. Appendectomy. 5. Tonsillectomy. HOME MEDICATIONS: Include: 1. Anoro 62.5/25 with 1 inhaled daily. 2. Effexor XR 150 mg p.o. daily. 3. Lyrica 100 mg p.o. daily. 4. Atrovent 0.5 mg inhaled b.i.d. 5. Prolia 60 mg. 6. Soma 350 mg p.o. at bedtime p.r.n. spasms. 7. Baclofen 5 mg p.o. b.i.d. p.r.n. spasms. 8. Atorvastatin 20 mg p.o. at bedtime. 9. Aspirin 81 mg p.o. daily. 10. Vitamin C 500 mg p.o. daily. 11. Albuterol 2 puffs inhaled 4 times daily. 12. Albuterol HFA inhaler 1 to 2 puffs every 4 hours as needed for shortness of breath. 13. Albuterol nebulizer 3 times a day as needed for shortness of breath. ALLERGIES: She has allergy to AUGMENTIN and SULFA. FAMILY HISTORY: Mother with a stroke at age 90. Father from COPD in his 60s. Sister with diabetes, now reported history of cancer. SOCIAL HISTORY: The patient reported that she quit smoking in 2011. Prior to that she smoked half a pack to pack a day for 50 years. She does report occasional alcohol use. Denies any illicit drug use. She is . She lives with her . Surrogate decision maker in the event she is unable to make her own decisions is her and her daughter. She is a full code. REVIEW OF SYSTEMS: She denies any fever or unintended weight loss, chest pain, edema. She does report cough and shortness of breath. She denies any hemoptysis. Denies any nausea or vomiting. She did report 1 episode of diarrhea this a.m. for which she took Imodium and no further episodes. She denies any abdominal pain, hematuria, dysuria, focal weakness, or sensory loss. Denies any visual complaints, arthralgias, myalgias, rashes, lesions or open sores. Denies any psychosis or anxiety. PHYSICAL EXAMINATION GENERAL: At this time, Ms. Cleary is a 72-year-old female. She is resting on the stretcher in the emergency room. She does not appear to be in any acute distress. She is well developed well nourished and appears her stated age. VITAL SIGNS: Blood pressure 131/80, heart rate 109, respirations are 24, O2 saturation 94% on 2 L, temperature was 98.0 HEENT: Head is atraumatic and normocephalic. Eyes: EOMs are intact. Sclerae anicteric and not pale. Oral mucosa appear to be moist. NECK: Supple. LUNGS: Diminished throughout bilaterally. She has expiratory wheezes bilaterally in the bases. CARDIAC: S1 and S2. Regular rate and rhythm. No murmurs, rubs, or gallops. ABDOMEN: Flat, soft, nontender. Bowel sounds are present x4. EXTREMITIES: She is able to move all 4 extremities. There is no clubbing or cyanosis. She has no edema. NEUROLOGIC: She is awake, alert, and oriented x3. Speech is clear. Thought process is intact. There is no gross focal deficits. SKIN: Intact. LABORATORY DATA AND DIAGNOSTIC STUDIES: WBCs are 7.8, RBCs 5.26, hemoglobin 16.6, hematocrit was 49, platelet count was 289. INR was 0.94. D-dimer was less than 200. Sodium 140, potassium 4.5, chloride 104, carbon dioxide was 29, anion gap was 7, BUN was 14, creatinine 0.61, glucose was 93, lactic acid was 1.1, calcium 9.7. ASTs were 16, ALTs were 13, alkaline phosphatase was 63. CK was 51. Troponin was 0.01. C-reactive protein was less than 1. BNP was 42. Flu A and B were both negative. Chest x-ray, radiologist's impression: COPD. No active cardiopulmonary disease. She had an electrocardiogram, which showed sinus rhythm with PACs. ASSESSMENT AND PLAN: Ms. Cleary is a 72-year-old female with past medical history significant for multiple sclerosis, osteoarthritis, chronic obstructive pulmonary disease, who presented to the emergency room with complaints of shortness of breath. We were asked to see and evaluate her due to her COPD exacerbation. She will be admitted under observation for: 1. Chronic obstructive pulmonary disease exacerbation. I suspect that her shortness of breath is related to chronic obstructive pulmonary disease exacerbation. The patient reports that she had an increased cough that has been nonproductive x2 days and progressively worsening shortness of breath since last night. She did receive steroids and nebulizer treatments in the emergency room and steroids via EMS. I will place her on prednisone 40 mg p.o. daily and continue home nebulizers as previously prescribed. She will continue her home inhalers and she will be reevaluated in the a.m. 2. Multiple sclerosis. The patient can have baclofen or Soma as needed for muscle spasms and continue her Lyrica as previously prescribed. 3. FEN: She can have a regular diet. 4. Code status: She is a full code. 5. DVT prophylaxis: I will place her on Lovenox subcu q.24 hours. TIME SPENT: Time spent on this admission was approximately 60 minutes, greater than half that time was spent at the bedside reviewing the events leading thus far to her hospitalization, performing my physical exam, and implementing my plan of care. I have discussed with my attending, Dr. Estevan Lara; he is in agreement with my plan. SHELLY FRANCOIS, OLENA [id number]/[facility]PS #: [id number] MTDCarroll
[2018-09-09] MEDS: Pregabalin CAP(*) 100 MG PO SCH (21:53)
[2018-09-09] MEDS: Ipratropium 0.5MG/2.5ML NEB* 0.5 MG/2.5 ML NEB.SOLN INH SCH (23:16)
[2018-09-10] MEDS ORDERED: Ondansetron INJ* 2 MG/ML VIAL IV PRN (01:07)
[2018-09-10] MEDS ORDERED: Loperamide CAP* 2 MG PO PRN (01:07)
[2018-09-10] MEDS ORDERED: PTO:Umeclidin/Vilant 62.5 MDI 62.5/25 mcg 14 INH ELLIPTA DEVICE INH SCH (09:00)
[2018-09-10] MEDS: Albuterol 2.5 MG/3 ML NEB.SOL* (0.083%) INH PRN ×2 (09:24→19:50)
[2018-09-10] MEDS: Ipratropium 0.5MG/2.5ML NEB* 0.5 MG/2.5 ML NEB.SOLN INH SCH ×2 (09:24→19:50)
[2018-09-10] MEDS: Ascorbic Acid TAB* 500 MG PO SCH (09:53)
[2018-09-10] MEDS: predniSONE TAB* 20 MG PO SCH (09:53)
[2018-09-10] MEDS: Pregabalin CAP(*) 100 MG PO SCH ×2 (09:54→21:46)
[2018-09-10] MEDS: Aspirin EC TAB* 81 MG TAB.EC PO SCH (09:54)
[2018-09-10] MEDS: Venlafaxine EXT RELEASE CAP* 75 MG PO SCH (09:54)
--- NOTE | 2018-09-10 13:28 | PN ---
Subjective Date of Service: 09/10/18 Interval History: Pt feels better, but still very sOB, desats when walking Objective Active Medications: Acetaminophen (Tylenol Tab*) 650 mg PO Q4H PRN PRN Reason: FEVER/PAIN Albuterol (Ventolin Hfa Inhaler*) 2 puff INH Q4HR PRN PRN Reason: SOB/WHEEZING Albuterol (Ventolin 2.5 Mg/3 Ml Neb.Jenna*) 2.5 mg INH [id number] AWAKE PRN PRN Reason: sob/wheezing Last Admin: 09/10/18 09:24 Dose: 2.5 mg Albuterol (Ventolin 2.5 Mg/3 Ml Neb.Jenna*) 2.5 mg INH TID PRN PRN Reason: COPD Ascorbic Acid (Vitamin C Tab*) 500 mg PO QAM [facility] Last Admin: 09/10/18 09:53 Dose: 500 mg Aspirin (Aspirin Ec Tab*) [facility] [place] Last Admin: 09/10/18 09:54 Dose: 81 mg Atorvastatin Calcium (Lipitor*) 20 mg PO 1700 [facility] Baclofen (Lioresal Tab*) 5 mg PO BID PRN PRN Reason: SPASMS Last Admin: 09/09/18 23:47 Dose: 5 mg Enoxaparin Sodium (Lovenox(*)) 40 mg SUBCUT 2100 [facility] Ipratropium [place] (Atrovent 0.5 Mg Neb.Jenna*) 0.5 mg INH BID [facility] Last Admin: 09/10/18 09:24 Dose: 0.5 mg Loperamide HCl (Imodium Cap*) 2 mg PO .SEE DIRECTIONS PRN PRN Reason: DIARRHEA Ondansetron HCl (Zofran Inj*) 4 mg IV Q4H PRN PRN Reason: INDIGESTION Prednisone (Deltasone Tab*) 40 mg PO DAILY [facility] Last Admin: 09/10/18 09:53 Dose: 40 mg Pregabalin (Lyrica Cap(*)) 100 mg PO BID [facility] Last Admin: 09/10/18 09:54 Dose: 100 mg Umeclidinium/Vilanterol (Anoro 62.5/25 Ellipta Device (Nf)) 1 inh INH DAILY [facility] Last Admin: 09/10/18 09:55 Dose: 1 inh Venlafaxine HCl (Effexor Xr Cap*) 150 mg PO DAILY [facility] Last Admin: 09/10/18 09:54 Dose: 150 mg Vital Signs - 8 hr 09/10/18 09/10/18 09/10/18 07:18 09:25 09:54 Temperature 98.0 F Pulse Rate 78 81 Respiratory 18 18 18 Rate Blood Pressure 108/65 (mmHg) O2 Sat by Pulse 97 97 Oximetry Oxygen Devices in Use Now: Nasal Cannula Appearance: 72 yo F in nAD, aAOx3 Eyes: No Scleral Icterus, PERRLA Ears/Nose/Mouth/Throat: NL Teeth, Lips, Gums, Mucous Membranes Moist Neck: NL Appearance and Movements; NL JVP, Trachea Midline Respiratory: Symmetrical Chest Expansion and Respiratory Effort, - - decreased breath sounds b/l with scattered b/l wheezes Cardiovascular: NL Sounds; No Murmurs; No JVD, RRR Abdominal: NL Sounds; No Tenderness; No Distention Lymphatic: No Cervical Adenopathy Extremities: No Edema, No Clubbing, Cyanosis Skin: No Rash or Ulcers, No Nodules or Sclerosis Neurological: Alert and Oriented x 3, NL Muscle Strength and Tone Result Diagrams: 09/09/18 14:08 09/09/18 14:08 Assess/Plan/Problems-Billing Assessment: 72 yo F with h/o MS, COPD (not on 02) presents with COPD exacerbation - Patient Problems (1) Acute hypoxemic respiratory failure Comment: - Secondary to COPD exacerbation. - Will likely need supplemental O2 on discharge. -cont Prednisone, ANoro, nebs -so far no evidence of infection (2) Multiple sclerosis Comment: - Stable. - Continue Baclofen, Carisoprodol (3) DVT prophylaxis Comment: - Lovenox. Status and Disposition: OBV will be switched to inpatient
[2018-09-10] MEDS ORDERED: Atorvastatin* 20 MG TAB PO SCH (17:00)
[2018-09-10] MEDS ORDERED: Enoxaparin(*) 40 MG/0.4 ML SYR SUBCUT SCH (21:00)
[2018-09-11] MEDS: Albuterol 2.5 MG/3 ML NEB.SOL* (0.083%) INH PRN (07:52)
[2018-09-11] MEDS: Ipratropium 0.5MG/2.5ML NEB* 0.5 MG/2.5 ML NEB.SOLN INH SCH (07:52)
[2018-09-11] MEDS ORDERED: PTO:Umeclidin/Vilant 62.5 MDI 62.5/25 mcg 14 INH ELLIPTA DEVICE INH SCH (09:00)
[2018-09-11] MEDS: Aspirin EC TAB* 81 MG TAB.EC PO SCH (10:12)
[2018-09-11] MEDS: Pregabalin CAP(*) 100 MG PO SCH (10:12)
[2018-09-11] MEDS: Ascorbic Acid TAB* 500 MG PO SCH (10:12)
[2018-09-11] MEDS: predniSONE TAB* 20 MG PO SCH (10:12)
[2018-09-11] MEDS: Venlafaxine EXT RELEASE CAP* 75 MG PO SCH (10:12)
[2018-09-11 14:39] VITALS: BP 142/74
--- NOTE | 2018-09-11 16:56 | DS ---
CC: Jeni Gardner NP; Dr. Lowe * DISCHARGE SUMMARY: DATE OF ADMISSION: 09/09/18 DATE OF DISCHARGE: 09/11/18 PRIMARY CARE PROVIDER: Jeni Gardner NP DISCHARGE DIAGNOSIS: Acute hypoxemic respiratory failure due to chronic obstructive pulmonary disease exacerbation. SECONDARY DIAGNOSES: 1. Chronic obstructive pulmonary disease, not on oxygen. 2. Multiple strokes. 3. Osteoarthritis. 4. History of deep venous thrombosis after surgery in the past. MEDICATIONS AT DISCHARGE: Include: 1. Prednisone taper 40 mg daily for 3 days, then 20 mg daily for 2 days, then 10 mg daily for 2 days, then stop. The remaining medications are unchanged and include: 1. Albuterol inhaler on a p.r.n. basis. 2. DuoNeb nebulizer on a p.r.n. basis. 3. Anoro Ellipta 1 dose inhalation daily. 4. Vitamin C 500 mg daily. 5. Aspirin 81 mg daily. 6. Soma 350 mg at bedtime. 7. Lyrica 100 mg b.i.d. 8. Lipitor 20 mg daily. 9. Baclofen 5 mg b.i.d. p.r.n. 10. Prolia 60 mg injection every 6 months. 11. Effexor extended release 150 mg daily. LABORATORY DATA: Performed at admission showed sodium of 140, potassium 4.5, chloride 104, carbon dioxide 29, BUN 14, creatinine 0.61. White blood cell count was 7.8, hemoglobin 16.6, hematocrit 49, and platelets of 289. D-dimer was negative. Influenza testing was negative. Portable chest x-ray, impression: "COPD with no active cardiopulmonary disease. " HOSPITALIZATION COURSE: Nabila Cleary is a 72-year-old female with history of COPD, who presented to the hospital with COPD exacerbation. The patient was hypoxemic and treated with steroids with good results. By the time of discharge , her ambulatory oxygen saturations were 90% to 93%. She is going to be discharged home on prednisone taper with recommendation to follow up with the patient's primary care provider in approximately 4 to [address] Lowe in approximately 1 to 2 weeks. PHYSICAL EXAM AT THE TIME OF DISCHARGE: Blood pressure of 141/82, heart rate of 83 and regular, respiratory rate 24, oxygen saturation 94% on room air, temperature 98.3. General: The patient is a very pleasant 72-year-old female, who is in no acute distress. Alert, awake and oriented x3. HEENT: Head: Atraumatic and normocephalic. Eyes: Pupils are equal reactive to light and accommodation. Oropharynx is clear. Mucosa is moist. Neck: Supple. No JVD. No bruits bilaterally. Cardiovascular: Regular rate and rhythm. No murmur. Respiratory: Distant breath sounds bilaterally with scant bilateral mid lung wheezes. Abdomen: Soft and nontender. Bowel sounds are present in all quadrants. Extremities: There is no edema. Pulses are +2 bilaterally. No clubbing or cyanosis. Neuro Evaluation: Speech clear. Cranial nerves II through XII grossly intact. Motor strength is 5/5 bilaterally. CONDITION ON DISCHARGE: Stable. Please note that this is a short summary of the patient's hospital stay. Please refer to further medical records for details. TIME SPENT: Approximately 35 minutes was spent on the patient's discharge. [id number]/[facility] #: [id number] MTDD
== END 2018-09-11 14:20 | disposition home or self-care (01) | DRG 189 ==
LOC: ED 13:46 → MED 18:38 → OBSVTOIN 09-10 13:29
PROVIDERS: ADMIT Internal Medicine; ATTEND Internal Medicine
DX: J96.01 Acute respiratory failure with hypoxia (principal); J44.1 Chronic obstructive pulmonary disease with (acute) exacerbation; M19.90 Unspecified osteoarthritis, unspecified site; G35 Multiple sclerosis; Z96.642 Presence of left artificial hip joint; Z79.82 Long term (current) use of aspirin; Z79.51 Long term (current) use of inhaled steroids; Z79.899 Other long term (current) drug therapy; Z88.1 Allergy status to other antibiotic agents; Z88.2 Allergy status to sulfonamides; Z82.3 Family history of stroke; Z82.5 Family history of asthma and other chronic lower respiratory diseases; Z83.3 Family history of diabetes mellitus; Z86.718 Personal history of other venous thrombosis and embolism; Z87.891 Personal history of nicotine dependence
CPT/HCPCS: 36415; 71045; 80053; 82550; 82553; 83605; 83880; 84484; 85025; 85379; 85610; 85730; 86140; 93005; 94640; 99284; A9270-GY; J1650; J7512; J7611

== ENCOUNTER 2018-10-27 00:40 | Inpatient (IN) | payer MEDICARE, OTHER ==
[2018-10-27] MEDS ORDERED: Albuterol 2.5 MG/3 ML NEB.SOL* (0.083%) INH ONE (00:47)
[2018-10-27] MEDS ORDERED: methylPREDNISolone 125 MG* 2 ML VIAL IV ONE (00:47)
[2018-10-27] MEDS ORDERED: Magnesium Sulfate 2 GM IV* 2 GM/50 ML BAG IVPB ONE (00:49)
--- OUTSIDE RECORDS SUMMARY | 2018-10-27 00:53 | XMS REPORT | Continuity of Care Document ---
:1945 External Reference #:[id number] Author Name Gus Kirby Care Team Providers Name Role Phone Abiad Wadsworth MD Primary Care Physician Unavailable Payers Date Identification Numbers Payment Provider Subscriber Effective: 2012 Policy Number: [id number] Medicare Nabila Cleary PayID: [id number] [address] [place] [address] Effective: 2016 Policy Number: [id number] [employer] Nabila Cleary Expires: 2017 PayID: [id number] [address] [place] [address] Effective: 2012 Policy Number: [id number] [employer] Nabila Cleary Expires: 2016 PayID: [id number] [address] [address] Effective: 2009 Policy Number: [id number] BS Of [facility] Nabila Cleary Expires: 2011 Group Number: [id number] [address] PayID: [id number] [place] [address] Policy Number: [id number] [facility] Nabila Cleary PayID: [id number] [address] [place] [address] Problems Active Problems Provider Date Chronic obstructive lung disease Maryjo Joshi M.D., FACP Onset: 12/03/2010 Multiple sclerosis Maryjo Joshi M.D., FACP Onset: 12/03/2010 Tobacco user Maryjo Joshi M.D., FACP Onset: 03/15/2011 Localized, primary osteoarthritis of the Akosuadeonte Guzman M.D. Onset: 07/07/2016 pelvic region and thigh Chronic obstructive pulmonary disease with PENELOPE Haider Onset: 2017 (acute) exacerbation Hyperlipidemia PENELOPE Haider Onset: 12/08/2017 Family History Date Family Member(s) Observation Comments : (age 60 Father due to COPD Years) : (age 80 Mother due to Heart Years) Disease : (age 80 Mother due to Stroke Years) Children 2 2 Daughters - Healthy ages 42 and 45 : (age 77 First Sister due to CHF DM, lung problem, Years) ultimately respiratory failure First Sister Diabetes Type II Social History Type Date Description Comments Sex Unknown Marital Status Lives With Lives With Daughter Lives With 1 puppy Lives With 1 dog in another visits apartment 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 [id number] Tablets Prednisone 1 by mouth every 20tabs J44.1 Shane Andrea 09/27/2018 20mg day; take 2 a day Alba Wing Tablets for the first 3 days Anoro Ellipta 1 inhalation daily 60units J44.9 Karli 08/31/2018 OLENA Brito 62.5-25mcg/Inh Aerosol Baclofen 1/2 po qhs prn 45tabs Garrison Perez 06/19/2018 10mg spasms Alab Mckeon Tablets Walker front wheeled 1units Akosua Guzman, 10/31/2017 [facility] walker dx: severe M.D. b/L hip OA Nebulizer use three times a 1units Jeni Gardner, 07/18/2017 Device day as needed N.P. Prolia 1 ml q 6 months 1ml M81.0 Jeni Gardner, 10/24/2015 60mg/ml N.P. Solution Epipen 2-Ronal use one time as 2units M81.0 Jeni Gardner, 10/24/2015 directed N.P. 0.3mg/0.3ML Solution Auto-Inject Ventolin HFA 1 to 2 inhalations 1inhaler J44.9 Jeni Gardner, 08/12/2015 every 4 hours as N.P. 108(90Base) mcg/Act needed Aerosol Atorvastatin take 1 tablet by 90tabs [...] via 60units J44.9 Jeni Gardner, 12/10/2010 nebulizer up to 4 N.P. (2.5mg/3ML) 0.083% times a day as Nebulizer needed Ipratropium [place] use in nebulizer 60units J44.9 Jeni Gardner, 2010 up to four times a N.P. 0.02% Solution day as needed Vitamin C 1 po qd Unknown 500mg Chewtabs Fish Oil 1 po qd Unknown 1200mg Capsules Lyrica take 1 tablet by 90caps Jeni Gardner, 100mg mouth 3 times N.P. Capsules daily. max/day=3 mdd 3 Prednisone Tapered dose Unknown 20mg Tablets History Medications Prednisone 4 tab daily for 1 49tabs J44.9 Karli 07/26/2018 - 5mg week, then 2 tab Daryl, DRY MAN 08/15/2018 Tablets daily for 1 week, then [...] by mouth every day x 4 days Combivent Respimat inhale 2 puffs by 4units Jeni Gardner, 12/12/2014 - mouth four times N.P. 09/18/2018 20-100mcg/Act a day Aerosol Tramadol HCL 1 tablet three to 30tabs 724.5 Jeni Gardner, 06/05/2014 - 50mg four times daily N.P. 06/19/2014 Tablets as needed Spacer Use this with 2units 496 Jeni Gardner, 03/27/2014 - your inhalers N.P. 11/25/2014 Omeprazole 1 by mouth every 90caps 530.81 Jeni Gardner, 08/16/2013 - 20mg day N.P. 11/25/[address] Azithromycin two tabs day one, 6tabs 466.0 aMryjo Joshi, 04/19/2013 - 250mg one daily till M.D., FACP 08/16/2013 Tablets gone Guaifenesin ac 1 tsp by mouth 100cc 466.0 Maryjo Joshi, 04/19/2013 - every day every M.D., FACP 10/10/2013 100-10mg/5ML Syrup night as needed Provigil 1 tablet twice 60tabs Garrison S. 05/26/2012 - 200mg daily mdd 2 tabs Alba Mckeon 06/19/2018 Tablets Prednisone as directed 40tabs 466.0 Jeni Gardner, 05/01/2012 - 10mg N.P. 05/17/2012 Tablets Azithromycin two tabs day one, 6tabs 466.0 Jeni Kendra, 04/27/2012 - 250mg one daily till N.P. 05/07/2012 Tablets gone Debrox 5 to 10 drops in 30ml 380.4 Jeni Gardner, 04/27/2012 - 6.5% Solution each ear twice N.P. 05/11/2012 daily Robitussin ac 1 - 2 tsp q 4 hrs 120units 466.0 Jeni Gardner, 03/03/2012 - prn cough N.P. 10/04/2012 Prednisone as directed 140tabs 466.0 Jeni Kendra, 03/03/2012 - 5mg N.P. 03/19/2012 Tablets Azithromycin two tabs day one, 6tabs 466.0 Jeni Kendra, 03/03/2012 - 250mg one daily till N.P. 03/13/2012 Tablets gone Ergocalciferol one po once 8caps 268.9 Maryjo Joshi, 11/08/2011 - weekly M.D., FACP 01/07/2012 [id number] Capsules Advair Diskus inhale 1 dose by 180units Jeni Gardner, 06/16/2011 - mouth twice a day N.P. 10/21/2017 250-50mcg/Dose Aerosol Estrace 1 application two 42.500gm 596.9 Maryjo Joshi, 03/15/2011 - 0.1mg/GM times weekly M.D., FACP 04/27/2012 Cream Levofloxacin 1 po qd 7tabs 496 Maryjo Goelon, 02/03/2011 - 500mg M.D., FACP 04/15/2011 Tablets Advair Diskus 1 puff bid 1units Maryjo Joshi, 02/03/2011 - M.D., FACP 06/16/2011 500-50mcg/Dose Aerosol Alprazolam 1 tab three times 30tabs 300.00 Maryjo Joshi, 12/28/2010 - 0.25mg daily as needed M.D., FACP 08/10/2011 Tablets Nebulizer use as directed J44.9 Maryjo Joshi, 12/10/2010 - M.D., FACP 07/18/2017 Wellbutrin SR 1 by mouth every 30tabs 496 Maryjo Joshi, 12/10/2010 - 100mg Am M.D., FACP 02/03/2011 Tablets ER 12HR Robitussin ac 1-2 tsp at 4Oz 496 Maryjo Joshi, 12/10/2010 - bedtime as needed M.D., [facility] 08/09/2011 Solution Prednisone 1 tablet by mouth 15tabs 496 Maryjo Joshi, 12/10/2010 - 10mg every morning for M.D., [facility] 02/03/2011 Tablets one week - then 1/2 tablet by mouth for one week - then 1/4 tablet by mouth for one week Levofloxacin 1 tab by mouth 7tabs 496 Maryjo Joshi, 12/03/2010 - 500mg every day M.D., [facility] 12/10/2010 Tablets Prednisone 4 tabs po qd x 4d 50tabs 496 Maryjo Joshi, 12/03/2010 - 5mg then 3 tabs po qd M.D., [facility] 12/10/2010 Tablets x 3d then 2 tabs po qd x 2d then 1 tab po qd x 1 d then 1/2 tab po qd x 2d. Combivent inhale 2 puffs by 14.7units Jeni Gardner, 09/14/2010 - mouth tid N.P. 12/12/2014 18-103mcg/Act Aerosol Aspirin 1 by mouth once Abida 03/25/2010 - 81mg Tablets daily Alba Wadsworth 12/26/2017 Chantix use as directed 1units Maryjo Joshi, 12/02/2009 - Start Pack M.D., FACP 03/25/2010 Effexor XR 1 tablet daily 90caps Maryjo Joshi, 12/01/2009 - 150mg Caps M.D., [facility] 02/22/2011 ER 24HR Soma 1 tab by mouth q6 90tabs Garrison Perez 12/01/2009 - 350mg Tablets hours as needed Alba Mckeon 06/19/2018 mdd 4 Oxycodone-Acetaminop Herminiopurgo, - hen MD Suleiman 06/12/2018 5-325mg Tablets Warfarin Sodium [place], - 3mg MD Suleiman 06/12/2018 Tablets Warfarin Sodium [place], - 1mg MD Suleiman 06/12/2018 Tablets Baclofen 1 tablet bid as Unknown - 5mg Tablets needed 06/19/2018 Copaxone 1 inj daily 90units Garrison Perez - 20mg/ml Solgaviota Mckeon M.D. 03/16/2017 Prefill Syringe Lipitor 1 po qd 90tabs 272.4 Jeni Varn, - 20mg Tablets N.P. 01/14/2014 Alendronate Sodium take 1 tablet by 4tabs Maryjo Joshi, - mouth every week M.DWendy, FACP 08/10/2011 70mg Tabs Azithromycin 2 tabs po day 1 6units Maryjo Joshi, - 250mg then 1 po qd til Alba, FACP 12/01/2009 done Cheratussin ac 1-2 tsp po qhs 118ml Maryjo Joshi, - prn Alba, FACP 12/01/2009 100-10mg/5ML Combivent 1 Inhalation Maryjo Joshi, - Twice A Day as 09/14/2010 103-18mcg/Act Needed Advair Diskus 1 inhalation 3months Maryjo Joshi, - twice daily M.DWendy, FACP 02/03/2011 250-50mcg/Dose Medications Administered in Office Medication SIG Qnty Indications Ordering Provider Date Prolia Injection, Denosumab, 1MG Hugo Rogers NP 09/15/2018 Injection Prolia Injection, Denosumab, 1MG Nurse Visit A 03/01/2017 Injection Prolia Injection, Denosumab, 1MG Nurse Visit A 09/02/2016 Injection Prolia Injection, Denosumab, 1MG Nurse Visit A 03/05/2016 Injection Immunizations CPT Code Status Date Vaccine Reaction Lot # [id number] Given 10/18/2018 Tetanus And Diptheria (Td) no Immediate [id number] For Adult Use Preservative reaction. Free 88560 Given 02/09/2016 Influenza Virus Vaccine, no reaction noted [id number] Quadrivalent, Split, .... hh Preservative Free 43105 Given 08/12/2015 Pneumococcal Conjugate [id number] Vaccine 13 Valent For Intramuscular Use Q2039 Given 03/05/2015 Flu Vaccine NOS 22978 Given 02/26/2014 Fluzone High Dose Q2037 Given 04/18/2012 Fluvirin Im 3Yrs And Older Q2037 Given 04/18/2012 Fluvirin Im 3Yrs And Older [id number] 91886 Given 04/18/2012 Zoster (Zostavax) [id number] 67007 Given 02/03/2011 Influenza Virus 3Yrs & Over [id number] 56614 Given 03/20/2010 Influenza Virus 3Yrs & Over [id number] 41998 Given 04/24/2009 Administration Swine Flu Shot 43764 Given 04/24/2009 Influenza Virus Vaccine, Pandemic Formulation 72358 Given 02/24/2009 Influenza Virus 3Yrs & Over 69536 Given 02/16/2008 Pneumonia Vaccine 14734 Given 02/16/2008 Pneumonia Vaccine 30153 Given 02/16/2008 Influenza Virus 3Yrs & Over 61504 Given 04/18/2007 Influenza Virus 3Yrs & Over 18720 Given 06/23/2006 Tdap - Tetanus/Diptheria/Acellular Pertussis 24133 Given 06/23/2006 Tdap - Tetanus/Diptheria/Acellular Pertussis 61276 Given 04/04/2006 Influenza Virus 3Yrs & Over Vital Signs Date Vital Result Comment 10/18/2018 2:37pm Height 67 inches 5'7" Weight 124.00 lb Heart Rate 97 /min BP Systolic Sitting 132 mmHg BP Diastolic Sitting 72 mmHg Body Temperature 98.4 F O2 % BldC Oximetry 98 % BMI (Body Mass Index) 19.4 kg/m2 09/27/2018 2:08pm Height 67 inches 5'7" Weight 124.00 lb Heart Rate 86 /min BP Systolic Sitting 152 mmHg BP Diastolic Sitting 79 mmHg Body Temperature 98.4 F O2 % BldC Oximetry 93 % BMI (Body Mass Index) 19.4 kg/m2 09/15/2018 4:06pm Height 67 inches 5'7" Weight 124.25 lb Heart Rate 64 /min BP Systolic 137 mmHg 73 BP Diastolic 73 mmHg 73 Body Temperature 98.6 F O2 % BldC Oximetry 96 % BMI (Body Mass Index) 19.5 kg/m2 08/31/2018 12:56pm Height 67 inches 5'7" Weight [...] Diastolic 73 mmHg O2 % BldC Oximetry 29827 % BMI (Body Mass Index) 18.2 kg/m2 [...] Date Facility Test Result H/L Range Note Lipid Profile 10/10/2018 [facility] Triglycerides 78 mg/dL 1 (Trig/Chol/HDL) [address] [place] [address] [phone] Cholesterol 294 mg/dL 2 HDL Cholesterol 96.7 mg/dL 3 LDL Cholesterol 182 mg/dL 4 Comp Metabolic Panel 10/10/2018 [facility] Sodium 140 mmol/L N 135-[address] [place] [address] [phone] Potassium 4.1 mmol/L N 3.5-5.0 Chloride 104 mmol/L N 101-111 Co2 Carbon Dioxide 28 mmol/L N 22-32 Anion Gap 8 mmol/L N 2-11 Glucose 75 mg/dL N 70-100 Blood Urea Nitrogen 18 mg/dL N 6-24 Creatinine 0.64 mg/dL N 0.51-0.95 BUN/Creatinine Ratio 28.1 High 8-20 Calcium 9.1 mg/dL N 8.6-10.3 Total Protein 6.3 g/dL Low 6.4-8.9 Albumin 4.1 g/dL N 3.2-5.2 Globulin 2.2 g/dL N 2-4 Albumin/Globulin Ratio 1.9 N 1-3 Total Bilirubin 0.60 mg/dL N 0.2-1.0 Alkaline Phosphatase 60 U/L N 34-104 Alt 14 U/L N 7-52 Ast 16 U/L N 13-39 Egfr Non- 91.5 >60 Egfr 110.7 >60 5 Laboratory test 10/10/2018 [facility] Vitamin D 15.6 ng/mL Low 20-50 [address] Total 25(Oh) [place] [address] [phone] CBC Auto Diff 10/10/2018 [facility] White Blood 10.5 N 3.5- 10.[address] Count 10^3/[place] [address] [phone] Red Blood Count 4.96 10^6/uL High 3.70-4.87 Hemoglobin 15.8 g/dL N 12.0-16.0 Hematocrit 46 % N 35-47 Mean Corpuscular Volume 93 fL N 80-97 Mean Corpuscular Hemoglobin 32 pg High 27-31 Mean Corpuscular HGB Conc 34 g/dL N 31-36 Red Cell Distribution Width 15 % N 10.5-15 Platelet Count 323 10^3/uL N 150-450 Mean Platelet Volume 7.9 fL N 7.4-10.4 Abs Neutrophils 6.3 10^3/uL N 1.5-7.7 Abs Lymphocytes 3.0 10^3/uL N 1.0-4.8 Abs Monocytes 0.8 10^3/uL N 0-0.8 Abs Eosinophils 0.2 10^3/uL N 0-0.6 Abs Basophils 0.1 10^3/uL N 0-0.2 Abs Nucleated RBC 0.0 10^3/uL Granulocyte % 60.4 % Lymphocyte % 29.1 % Monocyte % 7.8 % Eosinophil % 1.6 % Basophil % 1.1 % Nucleated Red Blood Cells % 0.0 CBC Auto Diff 09/09/2018 [facility] White Blood 7.8 10^3/uL N 3.5-10.[address] [place] [address] [phone] Red Blood Count 5.26 10^6/uL High 3.70-4.87 Hemoglobin 16.6 g/dL High 12.0-16.0 Hematocrit 49 % High 33-41 Mean Corpuscular Volume 92 fL N 80-97 Mean Corpuscular Hemoglobin 32 pg High 27-31 Mean Corpuscular HGB Conc 34 g/dL N 31-36 Red Cell Distribution Width 14 % N 10.5-15 Platelet Count 289 10^3/uL N 150-450 Mean Platelet Volume 7.7 fL N 7.4-10.4 Abs Neutrophils 5.9 10^3/uL N 1.5-7.7 Abs Lymphocytes 1.3 10^3/uL N 1.0-4.8 Abs Monocytes 0.4 10^3/uL N 0-0.8 Abs Eosinophils 0.1 10^3/uL N 0-0.6 Abs Basophils 0 10^3/uL N 0-0.2 Abs Nucleated RBC 0 10^3/uL Granulocyte % 75.8 % Lymphocyte % 16.6 % Monocyte % 5.6 % Eosinophil % 1.4 % Basophil % 0.6 % Nucleated Red Blood Cells % 0.2 Laboratory test 09/09/2018 [facility] Troponin-I (TnI) 0.01 ng/ mL <0.04 7 finding [address] [place] [address] [phone] CKMB 09/09/2018 [facility] CKMB ng/mL 3.0 ng/mL N 0.6-6.3 [address] [place] [address] [phone] Comp Metabolic 09/09/2018 [facility] Sodium 140 mmol/L N 135- 145 Panel [address] [place] [address] [phone] Potassium 4.5 mmol/L N 3.5-5.0 Chloride 104 mmol/L N 101-111 Co2 Carbon Dioxide 29 mmol/L N 22-32 Anion Gap 7 mmol/L N 2-11 Glucose 93 mg/dL N 70-100 Blood Urea Nitrogen 14 mg/dL N 6-24 Creatinine 0.61 mg/dL N 0.51-0.95 BUN/Creatinine Ratio 23.0 High 8-20 Calcium 9.7 mg/dL N 8.6-10.3 Total Protein 7.1 g/dL N 6.4-8.9 Albumin 4.2 g/dL N 3.2-5.2 Globulin 2.9 g/dL N 2-4 Albumin/Globulin Ratio 1.4 N 1-3 Total Bilirubin 0.60 mg/dL N 0.2-1.0 Alkaline Phosphatase 63 U/L N 34-104 Alt 13 U/L N 7-52 Ast 16 U/L N 13-39 Egfr Non- 96.7 >60 Egfr 117.0 >60 8 Laboratory test 09/09/2018 [facility] Creatine 51 U/L N 10- [address] Kinase(CK) [place] [address] [phone] C Reactive Protein < 1.00 mg/L N <8.01 B-Type Natriuretic Peptide BNP 42 pg/mL <=100 Influenza A & B 09/09/2018 [facility] Influenza A NEGATIVE Negative [address] [place] [address] [phone] Influenza B Molecular NEGATIVE Negative Laboratory test 09/09/2018 [facility] Partial 27.4 seconds N 26.0-36.[address] [place] [address] PTT [phone] D Dimer Quantitative < 200 ng/mL N Less Than 230 10 Inr/Protime 09/09/2018 [facility] Inr 0.94 N 0.82-1.[address] [place] [address] [phone] Laboratory test 09/09/2018 [facility] Lactic Acid 1.1 mmol/L N 0.5-2.0 [address] [place], [place] [id number] [phone] Laboratory test 06/25/2018 [facility] B-Type 15 pg/mL <=[address] [place] [address] Peptide BNP [phone] Inr/Protime 06/25/2018 [facility] Inr 0.86 N 0.77-1.[address] [place] [address] [phone] Laboratory test 06/25/2018 [facility] Partial Thrombo 27.9 N 26.0-36.[address] [place] [address] [phone] Comp Metabolic 06/25/2018 [facility] Sodium 139 mmol/L N 135- [address] [place] [address] [phone] Potassium 4.2 mmol/L N 3.5-5.0 Chloride 102 [...] Egfr Non- 86.8 >60 Egfr 105.0 >60 13 Laboratory test 06/25/2018 [facility] C Reactive < 1.00 mg/L N <8.[address] [place] [address] [phone] Troponin-I (TnI) 0.00 ng/mL <0.04 14 Lactic Acid 1.6 mmol/L N 0.5-2.0 15 CBC Auto Diff 11/25/2017 [facility] White Blood 5.7 10^3/uL N 3.5-10.[address] [place] [address] [phone] Red Blood Count 4.68 10^6/uL N 4.00-5.40 [...] Cells % 0 Comp Metabolic Panel 11/25/2017 [facility] Sodium 140 mmol/L N 135-145 [address] [place] [address] [phone] Potassium 4.1 mmol/L N 3.5-5.0 Chloride 103 [...] Egfr Non- 124.9 >60 Egfr 151.1 >60 16 Urinalysis Profile 11/25/2017 [facility] Urine Color Yellow [address] [place] [address] [phone] Urine Appearance Clear Urine Specific [place] 1.017 N 1.010-1.030 Urine pH 6.0 N 5-9 Urine Urobilinogen Negative Negative Urine Ketones Negative Negative Urine Protein Negative Negative Urine Leukocytes Negative Negative Urine Blood Negative Negative Urine Nitrite Negative Negative Urine Bilirubin Negative Negative Urine Glucose Negative Negative Inr/Protime 11/25/2017 [facility] Inr 0.89 N 0.77-1.02 [address] [place] [address] [phone] Laboratory test 11/25/2017 [facility] Partial 27.4 seconds N 26.0-36.3 finding [address] [facility] [place] [address] PTT [phone] Type & Screen 11/25/2017 [facility] Patient O Positive [address] [place] [address] [phone] Antibody Screen NEGATIVE Urine Culture And 11/25/2017 [facility] Urine Culture SEE RESULT [address] [place] [address] [phone] Urine Culture And 07/20/2017 [facility] Urine Culture SEE RESULT [address] BELOW [place], [place] [id number] [phone] Laboratory test 10/01/2016 [facility] Surgical SEE RESULT 19, [address] Pathology BELOW [place], [place] [address] [phone] Comp Metabolic 02/06/2016 [facility] Sodium 137 mmol/L N 133- Panel [address] [place] [address] [phone] Potassium 4.2 mmol/L N 3.5-5.0 Chloride 103 [...] 105.2 N >60 Egfr 135.2 N >60 21 CBC Auto Diff 02/06/2016 [facility] White Blood 5.2 10^3/uL N 3.5-10.[address] Count [place], [place] [address] [phone] Red Blood Count 4.54 10^6/uL N 4.0-5.4 [...] Nucleated Red Blood Cells % 0 N Lipid Profile 11/13/2013 [facility] Triglycerides 53 mg/dL N 22, 23 (Trig/Chol/HDL) [address] [place] [address] [phone] Cholesterol 286 mg/dL N 24 HDL Cholesterol 73.8 mg/dL N 25 LDL Cholesterol 202 mg/dL N 26 Comp Metabolic Panel 11/13/2013 [facility] Sodium 138 mmol/L N 133-145 [address] [place] [address] [phone] Potassium 4.1 mmol/L N 3.7-5.6 Chloride 104 [...] 115.4 N >60 Egfr 148.4 N >60 27 Vitamin D, 25 11/13/2013 [facility] 25-Hydroxy Vitamin <4.0 ng/ mL N Hydroxy [address] D2 [place] [address] [phone] 25-Hydroxy Vitamin D3 28 ng/mL N 25-Hydroxy Vitamin D Total 28 ng/mL N 28 Laboratory 11/13/2013 [facility] Hepatitis C Nonreactive N Nonreactive test finding [address] [place] [address] [phone] Basic 08/16/2013 [facility] Sodium 135 mmol/L N 133-[address] [place] [address] [phone] Potassium 5.2 mmol/L N 3.7-5.6 Chloride 99 mmol/L Low 101-111 Co2 Carbon Dioxide 31 mmol/L N 22-32 Anion Gap 5 mmol/L N 2-11 Glucose 73 mg/dL N 70-100 Blood Urea Nitrogen 13 mg/dL N 6-24 Creatinine 0.46 mg/dL Low 0.51-0.95 BUN/Creatinine Ratio 28.3 High 8-20 Calcium 9.6 mg/dL N 8.6-10.3 Egfr Non- 135.9 N >60 Egfr 174.8 N >60 29 Laboratory test 10/16/2012 [facility] TSH (Thyroid 2.25 0.34- 5.[address] Stimulating miu/[place] [address] Horm) [phone] CBC With Manual 10/16/2012 [facility] White Blood 5.9 4.8- 10.[address] Count 10^3/[place] [address] [phone] Red Blood Count 4.46 10^6/uL 4.0-5.4 Hemoglobin [...] RBC Morphology Normal Normal Laboratory test 10/16/2012 [facility] LDH 190 U/L High 95-185 finding [address] [place] [address] [phone] Comp Metabolic 10/16/2012 [facility] Sodium 138 mmol/L 133- 145 Panel [address] [place] [address] [phone] Potassium 4.0 mmol/L 3.5-5.0 Chloride 103 mmol/L [...] Egfr Non- 123.8 >60 Egfr 159.2 >60 30 Laboratory test 10/16/2012 [facility] C Reactive < 0.5 mg/dL Less than finding [address] Protein 0.5 [place] [address] [phone] Erythrocyte Sed Rate 16 mm/Hr 0-40 Vitamin D 1,25 11/01/2011 [facility] Vitamin D, 1,25 63 pg/mL 18-78 31 And Vitamin D,[address] [place] [address] [phone] Vitamin D, 25 11/01/2011 [facility] 25-Hydroxy <4.0 ng/mL () Hydroxy [address] Vitamin [place]2 [place] [address] [phone] 25-Hydroxy Vitamin D3 22 ng/mL () 25-Hydroxy Vitamin D Total 22 ng/mL Abnormal () 32 Laboratory test 11/01/2011 [facility] TSH 2.76 MIU/ML 0.34- 5.[address] [place] [address] [phone] Comp Metabolic 11/01/2011 [facility] Sodium 134 mmol/L Low 135 -[address] [place] [address] [phone] Potassium 4.2 mmol/L 3.5-5.0 Chloride 102 mmol/L 101-111 Co2 (Carbon Dioxide) 29.0 mmol/L 22-32 Anion Gap 3.0 mmol/L 2-11 33 Glucose 101 mg/dL High 70-100 BUN 13 mg/dL 6-24 Creatinine 0.5 mg/dL Low 0.50-1.40 One Over Creatinine 2.00 BUN/Creatinine Ratio 26.0 High 8-20 Calcium 8.9 mg/dL 8.1-9.9 Total Protein 6.2 GM/DL 6.2-8.1 Albumin 3.9 GM/DL 3.2-5.2 Globulin 2.3 GM/DL 2-4 Albumin/Globulin Ratio 1.7 1-3 Bilirubin Total 0.7 mg/dL 0.4-1.5 34 Alkaline Phosphatase 64 U/L 30-110 Alt (SGPT) 20 U/L 14-54 Ast (Sgot) 23 U/L 12-42 eGFR Non- 124.2 > 60 eGFR 159.7 > 60 35 Lipid Profile 11/01/2011 [facility] Triglyceride 43 mg/dL 40- 200 (Trig/Chol/HDL) [address] [place] [address] [phone] Cholesterol 246 mg/dL High Less Than 200 36 High Density Lipoprotein 90 mg/dL High 40-60 37 Cholesterol/HDL Ratio 2.73 AVERAGE 1-4.44 Low Density Lipoprotein 147 mg/dL High Less Than 100 38 Comp Metabolic Panel 04/13/2011 [facility] Sodium 138 mmol/L 135-[address] [place] [address] [phone] Potassium 3.9 mmol/L 3.5-5.0 Chloride 101 mmol/L 101-111 Co2 (Carbon Dioxide) 29.0 mmol/L 22-32 Anion Gap 8.0 mmol/L 2-11 39 Glucose 95 mg/dL 70-100 BUN 11 mg/dL 6-24 Creatinine 0.5 mg/dL Low 0.50-1.40 One Over Creatinine 2.00 BUN/Creatinine Ratio 22.0 High 8-20 Calcium 8.8 mg/dL 8.1-9.9 Total Protein 6.2 GM/DL 6.2-8.1 Albumin 3.8 GM/DL 3.2-5.2 Globulin 2.4 GM/DL 2-4 Albumin/Globulin Ratio 1.6 1-3 Bilirubin Total 0.5 mg/dL 0.4-1.5 40 Alkaline Phosphatase 70 U/L 30-110 Alt (SGPT) 24 U/L 14-54 Ast (Sgot) 28 U/L 12-42 eGFR Non- 124.2 > 60 eGFR 159.7 > 60 41 CBC Auto Diff 04/13/2011 [facility] White Blood 5.2 CUMM 4.8- 10.[address] [place] [address] [phone] Red Cell Count 4.39 CUMM 4.2-5.4 Hemoglobin [...] 0-0.6 Abs Basophils 0.1 0-0.2 Laboratory test 04/13/2011 [facility] Troponin-I 0.01 NG/ML 0 -0.06 [address] [place] [id number] [phone] CKMB 04/13/2011 [facility] CKMB In NG/ML 4.3 NG/ML High 0.3- 4.[address] [place] [address] [phone] % CKMB 3 %MB 0-9 43 Laboratory test 04/13/2011 [facility] CPK (Creatine 134 U/L 0 -[address] Kinase) [place] [address] [phone] Laboratory test 03/19/2011 [facility] TSH 2.89 0.34-5.[address] MIU/ML [place], [place] [id number] [phone] Vitamin D 1,25 03/19/2011 [facility] Vitamin D, 1,25 65 pg/mL 18-78 44 And Vitamin D,[address] [place] [address] [phone] Vitamin D, 25 03/19/2011 [facility] 25-Hydroxy <4.0 () Hydroxy DRIVE Vitamin D2 ng/[place] [address] [phone] 25-Hydroxy Vitamin D3 37 ng/mL () 25-Hydroxy Vitamin D Total 37 ng/mL () 45 Surgical 07/11/2006 [facility] Surgical [address] Pathology <SEE NOTE> [place] [id number] [phone] 1 Desirable: <150 Borderline High: 150-199 High: 200-499 Very High: >500 2 Desirable: <200 Borderline High: 200-239 High: >239 3 Low: <40 Desirable: 40-60 High: >60 4 Desirable: <100 Near Optimal: 100-129 Borderline High: 130-159 High: 160-189 Very High: >189 5 Because ethnic data is not always readily [...] 15-29 5 Kidney failure <15 (or dialysis) 6 Total 25-Hydroxyvitamin D2 and D3 (25-OH-VitD) <10 ng/mL (severe deficiency) 10-19 ng/mL (mild to moderate deficiency) 20-50 ng/mL (optimum levels) 51-80 ng/mL (increased risk of hypercalciuria) >80 ng/mL (toxicity possible) 7 Troponin-I testing on Plasma Separator Tubes (PST) has a known false positive rate of 0.20-0.40%. All positive troponins reflex immediately to secondary confirmatory testing. Using the [employer] DxI 800 Access Immunoassay systems, the 99th percentile upper reference limit was demonstrated to be < 0.03 ng/mL. 8 Because ethnic data is not always readily [...] 15-29 5 Kidney failure <15 (or dialysis) 9 Federal Agent: [id number] 10 Please note: The following may produce a false positive D Dimer test: - Rheumatoid factor greater than 60 IU/ml - Plasma hemoglobin greater than 0.05 gm/dl - Bilirubin greater than 50 mg/dl - Lipids greater than 1000 mg/dl - FDP greater than 20 ug/ml 11 Standard intensity warfarin therapeutic range: 2.0-3.0 High intensity warfarin therapeutic range: 2.5-3.5 12 [facility] Severe Sepsis and Septic Shock Management Bundle Measure requires all lactic acids initially measuring >2.0 mmol/L be repeated. 13 Because ethnic data is not always [...] 5 Kidney failure <15 (or dialysis) 14 Troponin-I testing on Plasma Separator Tubes (PST) has a known false positive rate of 0.20-0.40%. All positive troponins reflex immediate secondary confirmatory testing. 15 [facility] Severe Sepsis and Septic Shock Management Bundle Measure requires all lactic acids initially measuring >2.0 mmol/L be repeated. 16 Because ethnic data is not always [...] 5 Kidney failure <15 (or dialysis) 17 SEE RESULT BELOW Name: GASTONNABILA Torres Izabel : [address]: Akosua Guzman MD Acct: [id number] Unit: [id number] AGE: 71 Location: [facility] Re11/25/17 SEX: F Status: REG REF SPEC: [id number] CUCA: 11/25/17-[address] [facility] [address]: Akosua Guzman MD REQ: [id number] RECD: 11/25/17-1540 STATUS: COMP TERESE DR: Hugo Rogers DRY MAN _ SOURCE: URINE SPDESC: ORDERED: Urine Culture QUERIES: Urine Source: Clean Catch Procedure Result Reported Site Urine Culture Final 11/26/17- 1312 ML No Growth (<1,000 CFU/mL) * ML - Main Lab . END OF REPORT DEPARTMENT OF PATHOLOGY, [address] [place] [address] Kervin Read M.D. Director [facility] # [id number] 18 SEE RESULT BELOW Name: NABILA CLEARY : [address]: Jeni Gardner NP Acct: [id number] Unit: [id number] AGE: 71 Location: [facility] Re07/20/17 SEX: F Status: REG REF SPEC: [id number] CUCA: 07/20/[address]: Jeni Gardner NP REQ: [id number] RECD: 07/20/17 STATUS: RAIZA GUDINO DR: Abida Wadsworth MD _ SOURCE: URINE [facility]: ORDERED: Urine Culture Procedure Result Reported Site Urine Culture Final 07/22/17- 0854 ML Organism 1 ESCHERICHIA COLI [place] Count >100,000 (Many) CFU/ML 1. ESCHERICHIA COLI [...] . END OF REPORT DEPARTMENT OF PATHOLOGY, [address] [place] [address] Kervin Read M.D. Director [facility] # [id number] 19 [id number] 20 SEE RESULT BELOW Name: NABILA CLEARY : [address]: Adrian España MD Acct: [id number] Unit: [id number] AGE: 70 Location: [facility] Re10/01/16 SEX: F Status: REG REF SPEC: [id number] CUCA: 10/01/16-[address] [facility] [address]: Adrian España MD REQ: [id number] RECD: 10/01/16 STATUS: ZAFAR GUDINO DR: Dakota Gardner DRY MAN _ ORDERED: LEVEL 4/3 COMMENTS: [id number] FINAL DIAGNOSIS 1. Skin, left cheek superior, [...] performed at Main Lab DEPARTMENT OF PATHOLOGY, [address] [place] [address] Kervin Read M.D. Director [facility] # [id number] RUN DATE: 10/06/16 [facility] LAB LIVE PAGE 2 Patient: NABILA CLEARY [id number] (Continued) GROSS DESCRIPTION (Continued) Signed (signature on file) Fatuma Morrison MD 1331 END OF REPORT * ML=Testing performed at Main Lab DEPARTMENT OF PATHOLOGY, [address] [place] [address] Kervin Read M.D. Director [facility] # [id number] 21 Because ethnic data is not always [...] 5 Kidney failure <15 (or dialysis) 22 FASTING 23 Desirable <150 Borderline high 150-199 High 200-499 Very High >500 24 Desirable <200 Borderline high 200-239 High >239 25 Low <40 Desirable: 40-60 High: >60 26 Desirable <100 Near Optimal 100-129 Borderline high 130-159 High 160-189 Very High >189 27 Because ethnic data is not always readily [...] 15-29 5 Kidney failure <15 (or dialysis) 28 -- REFERENCE VALUE -- 25-HYDROXY D TOTAL (D2+D3) Optimum levels in the healthy population are 20-50, patients with bone disease may benefit from higher levels within this range. Test Performed by: [place] [address] Ordering Machine Operator: Brad Langley III, M.D. 29 Because ethnic data is not always [...] 5 Kidney failure <15 (or dialysis) 30 Because ethnic data is not always readily [...] 15-29 5 Kidney failure <15 (or dialysis) 31 Test Performed by: [place] [address] Ordering Machine Operator: Brad Langley III, M.D. 32 Interpretation: 10-24 (mild to moderate deficiency) -- REFERENCE VALUE -- 25-HYDROXY D TOTAL (D2+D3) Optimum levels in the normal population are 25-80 Test Performed by: [place] [address] Ordering Machine Operator: Brad Langley III, M.D. 33 Anion gap measurement may be of limited value in the presence of any alkalosis, especially in a combined acid base disorder. . 34 A metabolite of Naproxen, O-desmethylnaproxen, has been shown to interfere with the Jendrassik-Turkey method for measuring total bilirubin. Samples from patients who have taken Naproxen have shown spurious elevation in total bilirubin levels. 35 Because ethnic data is not always readily [...] 15-29 5 Kidney failure <15 (or dialysis) 36 CHOLESTEROL INTERPRETATION: Desirable: Less than 200 MG/DL Borderline-High Risk: 200-239 MG/DL High-Risk: 240 MG/DL and over 37 HDL INTERPRETATION: Undesirable: High Risk: Less than 40 MG/DL Desirable: Low Risk: Greater than 60 MG/DL 38 LDL INTERPRETATION: Low Risk Optimal Level: LDL Less than 100 MG/DL Near or Above Optimal: LDL 100-129 MG/DL Borderline High Risk: LDL 130-159 MG/DL High Risk: LDL 160-189 MG/DL Very High Risk: LDL Greater than 189 MG/DL 39 Anion gap measurement may be of limited value in the presence of any alkalosis, especially in a combined acid base disorder. . 40 A metabolite of Naproxen, O-desmethylnaproxen, has been shown to interfere with the Jendrassik-Jono method for measuring total bilirubin. Samples from patients who have taken Naproxen have shown spurious elevation in total bilirubin levels. 41 Because ethnic data is not always readily [...] 15-29 5 Kidney failure <15 (or dialysis) 42 New Reference Range and Interpretation effective 02/16/2002 TnI (ng/ml) INTERPRETATION Less Than 0.06 ng/mL NOT SUPPORTIVE OF DIAGNOSIS OF IN 0.06 - 0.50 ng/ml INDETERMINATE: SUGGEST SERIAL STUDIES IF CLINICALLY INDICATED. Greater than 0.5 ng/mL CONSISTENT WITH DIAGNOSIS OF IN . 43 INTERPRETATION %CK-MB < 5% NOT SUPPORTIVE OF DIAGNOSIS OF IN 5 - <10% INDETERMINATE; SUGGEST SERIAL STUDIES IF CLINICALLY INDICATED 10% OR > CONSISTENT WITH DIAGNOSIS OF IN . 44 Test Performed by: [facility] Dpt of Lab Med and Pathology [address] [place] [address] Ordering Machine Operator: Brad Langley III, M.D. 45 -- REFERENCE VALUE -- 25-HYDROXY D TOTAL (D2+D3) Optimum levels in the normal population are 25-80 Test Performed by: [facility] Dpt of Lab Med and Pathology [address] [place] [address] Ordering Machine Operator: Brad Langley III, M.D. 46 ---- RUN DATE: 07/13/06 [facility] NMI LIVE PAGE 1 RUN TIME: 1521 Specimen Inquiry RUN USER: INTERFACE [id number] NABILA CLEARY 60/F <[facility]LY [facility] 07/12> ([id number]) VIC Allen MD, Celestino Nguyen -- Specimen: [id number] SOUT Spec Date: 07/11/06 [facility] Dr: Celestino Sierra MD Spec Type: SURGICAL P Received: 07/12/060858 Copies to: Maryjo Joshi MD SPECIMEN L3 -L4 DISC HISTORY PRE-OP DIAGNOSIS: L3-L4 disc protrusion GROSS DESCRIPTION The specimen is received in formalin labelled Nabila Cleary, L3-L4 Disc and consists of multiple fragments of hill-mixon fibrous soft tissue measuring 2.5 x 1.5 x 0.6 cm. in aggregate. Master Of Ceremonies sections, one cassette. DIAGNOSIS Intervertebral disc, L3-4, discectomy - Intervertebral disc material. Signed Electronically by: KERVIN READ MD 07/13/06 -- -- DEPARTMENT OF PATHOLOGY, [address] [place] [address] [facility] Permit #[id number] [place] II, M.D. Director Alba Stuart irector -- Procedures Date Code Description Status 07/19/2018 56476 Polysomnography Sleep Staging 4+ Parameters Completed 03/22/2018 06769 EKG Tracing & Interpretation Completed 12/08/201724626 THR Total Hip Replacement Completed 12/08/201722770 THR Total Hip Replacement Completed 12/06/2017 21273 Diffusing Capacity Completed 12/06/2017 52320 Plethysmography Determination Lung Volumes & Per Completed Airway Resist 12/06/2017 50076 Pulmonary Function><Bronchodil Completed 11/27/2017 42801 Sleep Study Unattended,HRT Rate,Oxygen Sat,Resp Completed Effort/Airflow 11/23/2017 82804 EKG Tracing & Interpretation Completed 03/01/2017 93463 Admin Of Inj Completed 09/02/2016 40713 Admin Of Inj Completed 03/05/2016 50066 Chemotherpy Admin Subcutaneous/Im Non-Hormonal Completed Anti-Neoplastic 08/19/2015 [id number] Mammogram Completed 08/19/2015 022944643 Bone Mineral Density Test Completed 10/10/2013 74526 EKG Tracing & Interpretation Completed 08/22/2013 12837095 Mammogram Completed 11/11/2011 01670896 Colonoscopy Completed 08/10/2011 47957 EKG Tracing & Interpretation Completed 04/13/2011 05277 Noninvasive Ear Or Pulse Oximetry For Oxygen Completed Saturation 04/13/2011 75300 EKG Tracing & Interpretation Completed 03/18/2011 344260006 Bone Mineral Density Test Completed 02/18/2011 54994237 Mammogram Completed 02/10/2011 15101 Noninvasive Ear Or Pulse Oximetry For Oxygen Completed Saturation 02/03/2011 04876 Noninvasive Ear Or Pulse Oximetry For Oxygen Completed Saturation 12/10/2010 74219 Noninvasive Ear Or Pulse Oximetry For Oxygen Completed Saturation 12/03/2010 17787 Inhalation TX For Acute Airway Obstruction Completed W/Nebulizer/Inhaler 12/03/2010 62241 Noninvasive Ear Or Pulse Oximetry For Oxygen Completed Saturation 03/25/2010 90414 EKG Tracing & Interpretation Completed 09/24/2008 788511540 Bone Mineral Density Test Completed 09/12/2008 44159 EKG Tracing & Interpretation Completed 04/26/2008 62230 Noninvasive Ear Or Pulse Oximetry For Oxygen Completed Saturation 04/26/2008 06393 Noninvasive Ear Or Pulse Oximetry For Oxygen Completed Saturation 04/26/2008 66519 Inhalation TX For Acute Airway Obstruction Completed W/Nebulizer/Inhaler 09/06/2007 86676084 Mammogram Completed 07/13/2006 42302 EKG Tracing & Interpretation Completed 07/13/2006 66131 EKG Tracing & Interpretation Completed 07/11/2006 46091 Laminotomy W/Decomp NRV RT,One Interspace,Lumbar Completed 06/23/2006 44625 EKG Tracing & Interpretation Completed 04/29/2006 20010361 Mammogram Completed Encounters Type Date Location Provider Dx Diagnosis Office Visit 09/11/2018 [facility] Yves Frank96.01 Acute respiratory 8:57a Assoc,pc M.D. failure with Hospitalists hypoxia J44.1 Chronic obstructive pulmonary disease w (acute) exacerbation Office Visit 09/10/2018 [facility] Marilu Nash, J96.01 Acute respiratory 8:56a jcarlos Gray M.D. failure with Hospitalists hypoxia J44.1 Chronic obstructive pulmonary disease w (acute) exacerbation G35 Multiple sclerosis Office Visit 09/09/2018 [facility] Shelly J44.1 Chronic 8:55a Assoc,jcarlos Francois NP obstructive Hospitalists pulmonary disease w (acute) exacerbation G35 Multiple sclerosis Office Visit 08/31/2018 1:00p Pulmonology And Karli Marinelli44.9 Chronic Sleep Services Of OLENA Brito obstructive [employer] pulmonary disease, unspecified Office Visit 08/22/2018 3:20p [facility] Internal Jeni Gardner J44.9 Chronic Medicine - Ccmob N.P. obstructive pulmonary disease, unspecified R10.31 Right lower quadrant pain R60.0 Localized edema Office Visit 08/18/2018 1:15p Orthopedic Services Akosua Guzman M25.552 Pain in left Of C.M.A. M.D. hip Z96.642 Presence of left artificial hip joint M79.652 Pain in left thigh M62.81 Muscle weakness (generalized) M16.12 Unilateral primary osteoarthritis, left hip Office Visit 08/16/2018 2:15p [facility] SWendy G35 Multiple Services Of [facility] Alba Mckeon sclerosis Z79.899 Other chcf (current) drug therapy Office Visit 07/26/2018 11:00a Pulmonology And Sleep Laquita Lowe, R06.83 Snoring Services Of [facility] J44.9 Chronic obstructive pulmonary disease, unspecified Office Visit 06/28/2018 8:57a [facility] Delia J96.01 Acute respiratory Assoc,jcarlos Brooks M.D. failure with Hospitalists hypoxia J44.1 Chronic obstructive pulmonary disease w (acute) exacerbation Office Visit 06/27/2018 8:56a [facility] Delia J96.01 Acute respiratory Assoc,jcarlos Brooks M.D. failure with Hospitalists hypoxia J44.1 Chronic obstructive pulmonary disease w (acute) exacerbation Office Visit 06/26/2018 [facility] Lisbet J44.1 Chronic 8:56a Assoc,pc MD Ailyn obstructive Hospitalists pulmonary disease w (acute) exacerbation Office Visit 06/19/2018 [facility] S. G35 Multiple sclerosis 11:15a Services Of [facility] Alba Mckeon Z79.899 Other chcf (current) drug therapy Office Visit 06/13/2018 9:15a Pulmonology And Laquita J44.9 Chronic Sleep Services Of MD Mynor obstructive [facility] pulmonary disease, unspecified R06.83 Snoring Office Visit 03/22/2018 11:00a [facility] Internal Jeni Gardner, R06.02 Shortness of Medicine - Ccmob N.P. breath I49.3 Ventricular premature depolarization Z87.891 Personal history of nicotine dependence J44.1 Chronic obstructive pulmonary disease w (acute) exacerbation Office Visit 12/26/2017 [facility] Internal Jeni Gardner, I10 Essential 2:40p Medicine - Ccmob N.P. (primary) hypertension Office Visit 12/10/2017 [facility] Grzegorz West MD J44.9 Chronic 10:37a Assoc,pc obstructive Hospitalists pulmonary disease, unspecified E78.5 Hyperlipidemia, unspecified G35 Multiple sclerosis Office Visit 12/09/2017 10:37a [facility] Darlene J44.9 Chronic Assoc,pc Emory Marks obstructive Hospitalists DRY MAN pulmonary disease, unspecified G35 Multiple sclerosis E78.5 Hyperlipidemia, unspecified Office Visit 12/08/2017 [facility] Bahgat J44.1 Chronic 10:36a Assoc,pc PENELOPE Wilson obstructive Hospitalists pulmonary disease w (acute) exacerbation E78.5 Hyperlipidemia, unspecified G35 Multiple sclerosis Office Visit 11/23/2017 2:00p [facility] Internal Hugo Rogers, Z01.818 Encounter for other Medicine - DRY MAN preprocedural Ccmob examination M16.12 Unilateral primary osteoarthritis, left hip J44.9 Chronic obstructive pulmonary disease, unspecified G35 Multiple sclerosis Office Visit 11/14/2017 Pulmonology And Laquita Z01.811 Encounter for 9:30a Sleep Services Of MD M[place]or preprocedural [facility] respiratory examination M16.11 Unilateral primary osteoarthritis, right hip M16.12 Unilateral primary osteoarthritis, left hip J44.9 Chronic obstructive pulmonary disease, unspecified R06.83 Snoring Z12.2 Encntr screen for malignant neoplasm of respiratory organs Office Visit 10/31/2017 3:00p Orthopedic Services Akosuaalma Guzman, M25.551 Pain in right Of C.M.A. M.D. hip M25.552 Pain in left hip M16.11 Unilateral primary osteoarthritis, right hip M16.12 Unilateral primary osteoarthritis, left hip Office Visit 10/21/2017 4:00p [facility] Internal Jeni Gardner, H81.10 Benign paroxysmal Medicine - N.P. vertigo, Ccmob unspecified ear M25.552 Pain in left hip J44.9 Chronic obstructive pulmonary disease, unspecified H61.21 Impacted cerumen, right ear Office Visit 03/16/2017 10:30a Neurohospitalist Garrison Miller5 [facility] Alba Mckeon sclerosis Z79.899 Other chcf (current) drug therapy Office Visit 01/07/2017 [employer] [facility] Internal Shane Andrea R60.0 Localized 11:00a Medicine-Elayne Wing M.D. edema Office Visit 12/28/2016 [facility] Internal Medicine Deuce Ngo M54.31 Sciatica, 1:00p [place], N.P. right side J44.9 Chronic obstructive pulmonary disease, unspecified Office Visit 08/04/2016 2:20p [facility] Internal Jeni Gardner M79.661 Pain in right Medicine - Ccmob N.P. lower leg Z86.718 Personal history of other venous thrombosis and embolism Office Visit 07/22/2016 10:40a [facility] Internal Jeni Gardner M54.2 Cervicalgia Medicine - [place] N.P. Office Visit 07/07/2016 10:30a Orthopedic Akosua Thomas, M25.552 Pain in left hip Services Of Alba C.M.A. M16.12 Unilateral primary osteoarthritis, left hip Office Visit 06/22/2016 10:00a [facility] Internal Jeni Gardner S39.013A Strain of Medicine - [place] N.P. muscle, fascia and tendon of pelvis, init encntr R10.32 Left lower quadrant pain Office Visit 04/16/2016 2:40p [facility] Internal Hugo Rogers J06.9 Acute upper Medicine - Ccmob DRY MAN respiratory infection, unspecified J44.9 Chronic obstructive pulmonary disease, unspecified Office Visit 03/02/2016 Neurohospitalist Noemi Damico, G35 Multiple 9:30a Clinic DRY MAN sclerosis J44.9 Chronic obstructive pulmonary disease, unspecified S39.013A Strain of muscle, fascia and tendon of pelvis, init encntr Z79.899 Other government services professional (current) drug therapy Office Visit 02/09/2016 11:20a [facility] Internal Jeni Gardner, Z23 Encounter for Medicine - [facility]cm[facility] N.P. immunization S39.013A Strain of muscle, fascia and tendon of pelvis, init encntr M81.0 Age-related osteoporosis w/o current pathological fracture Office Visit 10/24/2015 1:20p [facility] Internal Jeni Gardner, M81.0 Age- related Medicine - N.P. osteoporosis w/o [facility] current pathological fracture Office Visit 08/12/2015 10:40a [facility] Internal Jeni Gardner, Z00.00 Encntr for general Medicine - N.P. adult medical exam Ccmob w/o abnormal findings Z12.31 Encntr screen mammogram for malignant neoplasm of breast J44.9 Chronic obstructive pulmonary disease, unspecified E78.0 Pure hypercholesterolemia G35 Multiple sclerosis M85.89 Oth disrd of bone density and structure, multiple sites F17.201 Nicotine dependence, unspecified, in remission F32.9 Major depressive disorder, single episode, unspecified Z23 Encounter for immunization Office Visit 04/30/2015 4:20p [facility] Internal Hugo Rogers, J20.9 Acute bronchitis, Medicine - [place] DRY MAN unspecified J44.1 Chronic obstructive pulmonary disease w (acute) exacerbation Office Visit 11/26/2014 10:00a [facility] Garrison S. 340 Multiple Services Of Oj Mckeon M.D. Sclerosis 780.79 Malaise And Fatigue Other Office Visit 06/07/2014 10:00a [facility] Internal Jeni Gardner, 496 COPD Airway Medicine - [place] N.P. Obstruction Chronic Not Class Elsewhere 724.5 Backache Unspec 733.00 Osteoporosis Unspec 720.2 Sacroiliitis Not Elsewhere Classified Office Visit 06/05/2014 2:20p [facility] Internal Jeni Gardner, 724.5 Backache Unspec Medicine - Ccmob N.P. 720.2 Sacroiliitis Not Elsewhere Classified 728.85 Spasm Muscle Office Visit 04/10/2014 11:20a [facility] Internal Jeni Varn, 496 COPD Airway Medicine - N.P. Obstruction Chronic [facility] Not Class Elsewhere Office Visit 03/27/2014 9:00a [facility] Internal Jeni Roycen, 496 COPD Airway Medicine - N.P. Obstruction Chronic [facility]cmob Not Class Elsewhere Office Visit 03/21/2014 11:40a [facility] Internal Jeni Roycen, 496 COPD Airway Medicine - N.P. Obstruction Chronic [facility] Not Class Elsewhere Office Visit 11/27/2013 9:00a [facility] Internal Jeni Varn, 272.4 Hyperlipidemia Other Medicine - N.P. Unspec Ccmob 564.00 Constipation Unspecified Office Visit 10/23/2013 2:15p [facility] S. 340 Multiple Services Of [facility] Alba Mckeon Sclerosis Office Visit 10/10/2013 2:00p [facility] Internal Maryjo Joshi, V70.0 Examination Medicine - [place] M.Viri, FACP General Medical Routine AT Health Care Facility V70.0 Examination General Medical Routine AT Health Care Facility V76.10 Screening For Malignant Neoplasm Breast 340 Multiple Sclerosis 496 COPD Airway Obstruction Chronic Not Class Elsewhere 530.81 Esophageal Reflux 300.00 Anxiety State Unspec 564.1 Irritable Bowel Syndrome 272.0 Hypercholesterolemia Pure 575.8 Gallbladder Disorders Other Spec Office Visit 09/04/2013 11:20a [facility] Internal Maryjo Joshi, 496 COPD Airway Medicine - [place] M.DWendy, FACP Obstruction Chronic Not Class Elsewhere 530.81 Esophageal Reflux 575.8 Gallbladder Disorders Other Spec Office Visit 08/16/2013 3:40p [facility] Internal Maryjo Joshi, 496 COPD Airway Medicine - [facility] M.DWendy, FACP Obstruction Chronic Not Class Elsewhere 530.81 Esophageal Reflux Office Visit 04/19/2013 4:00p [facility] Internal Maryjo Joshi, 466.0 Bronchitis Acute Medicine - [facility] M.DWendy, FACP Office Visit 02/22/2013 9:00a [facility] Internal Maryjo Joshi, 564.1 Irritable Bowel Medicine - [place] M.DWendy, FACP Syndrome 496 COPD Airway Obstruction Chronic Not Class Elsewhere 300.00 Anxiety State Unspec 340 Multiple Sclerosis Office Visit 11/06/2012 11:20a [facility] Internal Maryjo Joshi, 715.14 Osteoarthrosis Medicine - [place], FACP Localized Prim Hand Ccmob 780.79 Malaise And Fatigue Other Office Visit 10/16/2012 11:20a [facility] Internal Maryjo Joshi, 780.79 Malaise And Medicine - Charles Willis, FACP Fatigue Other 785.6 Lymph Nodes Enlargement Office Visit 10/04/2012 2:45p [facility] Garrison SWendy 340 Multiple Services Of [facility] Alba Mckeon Sclerosis Office Visit 05/01/2012 9:40a [facility] Internal Jeni Gardner, 340 Multiple Medicine - Ccmob N.P. Sclerosis 380.4 Impacted Cerumen 466.0 Bronchitis Acute Office Visit 04/27/2012 10:40a [facility] Internal Jeni Vargaviota, 466.0 Bronchitis Acute Medicine - Ccm[facility] N.P. 380.4 Impacted Cerumen Office Visit 03/03/2012 3:40p [facility] Internal Jeni Gardner, 466.0 Bronchitis Acute Medicine - Ccm[facility] N.P. Office Visit 11/08/2011 8:40a [facility] Internal Jeni Gardner, 268.9 Vitamin D Medicine - [place] [place] [facility] Deficiency Unspec 272.4 Hyperlipidemia Other Unspec 305.1 Tobacco Use Disorder Office Visit 09/06/2011 4:20p [facility] Internal [place] 528.6 Oral Soft Tissue Medicine Deuce Wadsworth M.D. Exlud Ginviva & Ccmob Tongue Leukoplakia Mucosa 923.10 Contusion Forearm Office Visit 08/10/2011 2:20p [facility] Internal Maryjo Joshi, V70.0 Examination Medicine - Charles Willis, FACP General Medical Routine AT Health Care Facility V76.10 Screening For Malignant Neoplasm Breast 496 COPD Airway Obstruction Chronic Not Class Elsewhere 733.90 Bone & Cartilage Disorder Unspec 305.1 Tobacco Use Disorder 401.1 Hypertension Benign 780.52 Insomnia Unspecified v72.60 Laboratory Examination, Unspecified Office Visit 04/15/2011 DO Not Use Jeni Gardner, 723.1 Cervicalgia 10:00a [facility] N.P. Office Visit 04/13/2011 DO Not Use Maryjo Joshi, 786.59 Pain Chest Other 10:00a Gavino Willis, [...] Use Jeni Gardner, 466.0 Bronchitis Acute 3:45p [employer] N.P. Office Visit 04/24/2009 DO Not Use Maryjolisa Joshi, 496 COPD Airway 2:00p Gavino Willis, FACP Obstruction Chronic Not Class Elsewhere 340 Multiple Sclerosis V04.81 Need For Prophylactic Vaccination & Inoculation/Influenza Office Visit 04/04/2009 4:30p DO Not Use Radjose, 708.9 Urticaria Gavino Mckinney M.D. Unspec 496 COPD Airway Obstruction Chronic Not Class Elsewhere 340 Multiple Sclerosis Office Visit 03/19/2009 DO Not Use Jeni Varn, 461.9 Sinusitis Acute 2:30p [employer] N.P. Unspec Office Visit 10/02/2008 DO Not Use Maryjolisa Joshi, Presley6 COPD Airway 2:45p Gavino Willis, FACP Obstruction Chronic Not Class Elsewhere 340 Multiple Sclerosis 780.79 Malaise And Fatigue Other Office Visit 09/12/2008 3:00p DO Not Use Maryjolisa Joshi, V72.31 Routine [employer]line [employer] Gavino Willis, FACP Examination 340 Multiple Sclerosis 496 COPD Airway Obstruction Chronic Not Class Elsewhere 733.00 Osteoporosis Unspec Office Visit 06/24/2008 DO Not Use Jeni 727.04 Tenosynovitis 2:00p [employer] Varn, N.P. Radial Styloid 719.41 Pain Joint Shoulder Region Office Visit 06/19/2008 DO Not Use Jeni Varn, 466.0 Bronchitis Acute 4:00p [employer] N.P. Office Visit 04/26/2008 DO Not Use Maryjolisa Joshi, 496 COPD Airway 3:45p Gavino Willis, FACP Obstruction Chronic Not Class Elsewhere 466.0 Bronchitis Acute Office Visit 04/15/2008 DO Not Use Jeni Varn, 611.72 Lump Or Mass 3:30p [employer] N.P. 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 Infection Site Not Spec Office Visit 03/28/2007 Neurosurgery Celestino Wendy 724.2 Lumbago 3:30p [facility] Allen M.D. Office Visit 02/07/2007 DO Not Use Jeni Varn, 564.00 Constipation 11:45a [place] N.P. Unspecified 465.9 URI Upper Respiratory Infections Acute Unspec Sites 708.9 Urticaria Unspec Office Visit 01/24/2007 3:30p Neurosurgery Celestino Wendy [facility] M.D. 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 Elsewhere Classified 719.45 Pain Joint Pelvic Region & Thigh 340 Multiple Sclerosis 564.00 Constipation Unspecified Office Visit 06/23/2006 2:30p DO Not Use Maryjo Madelyn, V70.0 Examination [facility] FACP General Medical Routine [facility] 340 Multiple Sclerosis V06.1 Fufbbzcrag-Nxnmlic-Wqxvrmbw Combined (DTaP) Office Visit 12/30/2005 11:15a DO Not Use Maryjo Madelyn, 610.0 Cyst Breast Gavino Willis, FACP Solitary 340 Multiple Sclerosis 272.4 Hyperlipidemia Other Unspec Plan of Treatment Future Appointment(s):11/21/2018 1:45 pm - Garrison Mckeon M.D. at [facility]12/11/2018 11:30 am - Laquita Lowe MD at [facility]10/18/2018 - Jeni Gardner, N.P.Z00.00 Encounter for general adult medical examination without abnoComments:For your routine health maintenance: I would encourage you to start a regular exercise program of walking. Your colonoscopy is up to date. You had this in 2011. Barring anything unforeseen the GI specialist does not think you should need this again.Your pneumonia immunizations are up to date. You had these in 2007 and 2012. You will not need these again. There is a new shingles vaccine available, Shingrix. This is a series of 2 injections given 2 - 6 months apart. This is available at the pharmacy and I urge you to get this.You have received your Tetanus immunization today. Your arm may be sore fora few days. This is good for 10 years.Z12.31 Encounter for screening mammogram for malignant neoplasm ofNew Xrays:[facility] Screening Mammogram, Ordered: 10/18/18Comments:I have ordered your routine screening mammogram. The imaging department will give you your results at the time of your visit. I encourage you to do self exams. If you should notice any masses or thickening, please give the office a call.J44.9 Chronic obstructive pulmonary disease, unspecifiedComments:For your COPD continue your current management. If you find your symptoms are not well controlled, please contact the office.G35 Multiple sclerosisComments:For your MS please continue your management with your specialist.E78.5 Hyperlipidemia, unspecifiedComments:Your cholesterol level is very high. I have sent a prescription in for Atorvastatin, please restart this. Take 1 tablet at night. I want you to get repeat blood work in 8 weeks. I will contact you withyour results.I encourage you to continue to follow a low cholesterol diet.M81.0 Age- related osteoporosis without current pathological fractuNew Xrays:Dexa Bone Dens Axial Skeleton (Hips, Pelvis, Spine), Ordered: 10/18/18Comments:For your osteoporosis: Continue to get your Prolia injections.I am ordering a Dexascan. The office will contact you with your results.You need to be getting between 1, 000 - 1,200 mg of Calcium in daily. The best way to supplement what you get in your diet is to drink Calcium fortified orange juice. Ifyou take a Calcium supplement be sure it has Vitamin D in it to help absorption. It is important quin sure your home environment is safe to avoid risk of falling. Scatter rugs are a hazard.E55.9 Vitamin D deficiency, unspecifiedNew Medication:Vitamin D3 Ultra Potency 10749 Unit - one by mouth once weeklyComments:You are Vitamin D deficient. I have sent a prescription in for Vitamin D 50,000 iu. Take 1 tablet once weekly over the next 8 weeks. Once you are done you need to be getting a daily supplement of D3, 2,000 iu daily.Z23 Encounter for immunization
--- OUTSIDE RECORDS SUMMARY | 2018-10-27 00:54 | XMS REPORT | Continuity of Care Document ---
:1945 External Reference #:[id number] Author Name Allan Ita Care Team Providers Name Role Phone Abida Wadsworth MD Primary Care Physician Unavailable Payers Date Identification Numbers Payment Provider Subscriber Effective: 2012 Policy Number: [id number] Medicare Nabila Cleary PayID: [id number] [address] [place] [address] Effective: 2016 Policy Number: [id number] [employer] Nabila Cleary Expires: 2017 PayID: [id number] [address] [place] [address] Effective: 2012 Policy Number: [id number] [employer] Nabila Cleary Expires: 2016 PayID: [id number] [address] [place] [address] Effective: 2009 Policy Number: [id number] BS Of [facility] Nabila Cleary Expires: 2011 Group Number: [id number] [address] PayID: [id number] [place] [address] Policy Number: [id number] [facility] Nabila Cleary PayID: [id number] [address] [place] [address] Problems Active Problems Provider Date Chronic obstructive [...] 1 dog in another visits apartment 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 Cigarette Use Pack Years - 46 Tobacco Use Start: Unknown Former Cigarette Smoker Quit 2012 Smoked End: Unknown for 40 years, 1ppd Tobacco Use Start: Unknown Vaping Not sure if it has nicotine, a couple times a day Smoking Status Reviewed: 09/27/18 Vaping Not sure if it has nicotine, [...] Medications SIG Qnty Indications Ordering Date Provider Prednisone 1 by mouth every 20tabs J44.1 Shane Andrea 09/27/2018 20mg day; take 2 a day Alba Wing Tablets for the first 3 days Anoro Ellipta 1 inhalation daily 60units J44.9 Karli 08/31/2018 OLENA Brito 62.5-25mcg/Inh Aerosol Baclofen 1/2 po qhs prn 45tabs Garrison Perez 06/19/2018 10mg spasmgraciela Mckeon M.D. Tablets Walker front wheeled 1units Akosua Guzman, 10/31/2017 [facility] [place] dx: severe M.D. b/L hip OA [...] times a day as Nebulizer needed Ipratropium [place] use in nebulizer 60units J44.9 Jeni Gardner, [...] needed Spacer Use this with 2units 496 Jnei Gardner, 03/27/2014 - your inhalers N.P. 11/25/2014 [...] Tablets Prednisone as directed 40tabs 466.0 Jeni Kendra, 05/01/2012 - 10mg N.P. 05/17/2012 Tablets Azithromycin two tabs day one, 6tabs 466.0 Jeni Kendra, 04/27/2012 - 250mg one daily till N.P. 05/07/2012 Tablets gone Debrox 5 to 10 drops in 30ml 380.4 Jeni Kendra, 04/27/2012 - 6.5% Solution each ear twice N.P. 05/11/2012 daily Robitussin ac 1 - 2 tsp q 4 hrs 120units 466.0 Jeni Kendra, 03/03/2012 - prn cough N.P. 10/04/2012 Prednisone as directed 140tabs 466.0 Jeni Gardner, 03/03/2012 - 5mg N.P. 03/19/2012 Tablets Azithromycin two tabs day one, 6tabs 466.0 Jeni Kendra, 03/03/2012 - 250mg one daily till N.P. 03/13/2012 Tablets gone Ergocalciferol one po once 8caps 268.9 Maryjo Joshi, 11/08/2011 - weekly M.D., FACP 01/07/2012 [id number] Capsules Advair Diskus inhale 1 dose by 180units Jeni Kendra, 06/16/2011 - mouth twice a day N.P. [...] 12/28/2010 - 0.25mg daily as needed [facility] 08/10/2011 Tablets Nebulizer use as directed J44.9 Maryjo Joshi, 12/10/2010 - M.D., [facility] 07/18/2017 Wellbutrin SR 1 by mouth every 30tabs 496 Maryjo Joshi, 12/10/2010 - 100mg Am M.D., [facility] 02/03/2011 Tablets ER 12HR Robitussin ac 1-2 tsp at 4Oz 496 Maryjo Joshi, 12/10/2010 - bedtime as needed M.D[facility] 08/09/2011 Solution Prednisone 1 tablet by mouth 15tabs 496 Maryjo Joshi, 12/10/2010 - 10mg every morning for M.D., [facility] 02/03/2011 Tablets one week - then 1/2 tablet by mouth for one week - then 1/4 tablet by mouth for one week Levofloxacin 1 tab by mouth 7tabs 496 Maryjo Joshi, 12/03/2010 - 500mg every day M.D[facility] 12/10/2010 Tablets Prednisone 4 tabs po qd x 4d 50tabs 496 Maryjo Joshi, 12/03/2010 - 5mg then 3 tabs po qd M.D., [facility] 12/10/2010 Tablets x 3d then 2 tabs [...] Maryjo Joshi, 12/02/2009 - Start Pack M.D., [facility] 03/25/2010 Effexor XR 1 tablet daily 90caps Maryjo Joshi, 12/01/2009 - 150mg Caps M.D., [facility] 02/22/2011 ER 24HR Soma 1 tab by mouth q6 90tabs Garrison Perez 12/01/2009 - 350mg Tablets hours as needed Alba Mckeon 06/19/2018 mdd 4 Oxycodone-Acetaminop [place], - hen MD Suleiman 06/12/2018 5-325mg Tablets Warfarin Sodium [place], - 3mg MD Suleiman 06/12/2018 Tablets Warfarin Sodium [place], - 1mg MD Suleiman 06/12/2018 Tablets Baclofen 1 tablet bid as Unknown - 5mg Tablets needed 06/19/2018 Copaxone 1 inj daily 90units Garrison SWendy - 20mg/ml Charmaine Mckeon M.D. 03/16/2017 Prefill Syringe Lipitor 1 po qd 90tabs 272.4 Jeni Varn, - 20mg Tablets N.P. 01/14/2014 Alendronate Sodium take 1 tablet by 4tabs Maryjo Joshi, - mouth every week M.D., FACP 08/10/2011 70mg Tabs Azithromycin 2 tabs po day 1 6units Maryjo Madelyn, - 250mg then 1 po qd til M.D., FACP 12/01/2009 done Cheratussin ac 1-2 tsp po qhs 118ml Maryjo Madelyn, - prn M.D., FACP 12/01/2009 100-10mg/5ML Combivent 1 Inhalation Maryjo [...] Code Status Date Vaccine Reaction Lot # [id number] Given 02/09/2016 Influenza Virus Vaccine, no reaction noted [id number] Quadrivalent, Split, .... hh Preservative Free 13380 Given 08/12/2015 Pneumococcal Conjugate [id number] Vaccine 13 Valent For Intramuscular Use [id number] Given 03/05/2015 Flu Vaccine NOS 07242 Given 02/26/2014 Fluzone High Dose Q2037 Given 04/18/2012 Fluvirin Im 3Yrs And Older Q2037 Given 04/18/2012 Fluvirin Im 3Yrs And Older [id number] 58875 Given 04/18/2012 Zoster (Zostavax) [id number] 28924 Given 02/03/2011 Influenza Virus 3Yrs & Over [id number] 24714 Given 03/20/2010 Influenza Virus 3Yrs & Over [id number] 49853 Given 04/24/2009 Administration Swine Flu Shot 78223 Given 04/24/2009 Influenza Virus Vaccine, Pandemic Formulation 42355 Given 02/24/2009 Influenza Virus 3Yrs & Over 99665 Given 02/16/2008 Pneumonia Vaccine 13496 Given 02/16/2008 Pneumonia Vaccine 05056 Given 02/16/2008 Influenza Virus 3Yrs & Over 93709 Given 04/18/2007 Influenza Virus 3Yrs & Over 20953 Given 06/23/2006 Tdap - Tetanus/Diptheria/Acellular Pertussis 12773 Given 06/23/2006 Tdap - Tetanus/Diptheria/Acellular Pertussis 37901 Given 04/04/2006 Influenza Virus 3Yrs & Over Vital Signs Date Vital Result Comment 09/27/2018 2:08pm Height 67 inches 5'7" Weight [...] Diastolic 73 mmHg O2 % BldC Oximetry 57766 % BMI (Body Mass Index) 18.2 kg/m2 [...] Test Result H/L Range Note Laboratory test 09/09/2018 [facility] Lactic Acid 1.1 mmol/L N 0.5-2.[address] [place] [address] [phone] Inr/Protime 09/09/2018 [facility] Inr 0.94 N 0.82-1.[address] [place] [address] [phone] Laboratory test 09/09/2018 [facility] Partial 27.4 seconds N 26.0-36.[address] [place] [address] PTT [phone] D Dimer Quantitative < 200 ng/mL N Less Than 230 3 CBC Auto Diff 09/09/2018 [facility] White Blood 7.8 10^3/uL N 3.5-10.[address] [place] [address] [phone] Red Blood Count 5.26 10^6/uL High 3.70-4.87 [...] Blood Cells % 0.2 Laboratory test 09/09/2018 [facility] Troponin-I (TnI) 0.01 ng/ mL <0.04 [address] [place] [address] [phone] CKMB 09/09/2018 [facility] CKMB ng/mL 3.0 ng/mL N 0.6-6.[address] [place] [address] [phone] Comp Metabolic 09/09/2018 [facility] Sodium 140 mmol/L N 135- [address] [place] [address] [phone] Potassium 4.5 mmol/L N 3.5-5.0 Chloride 104 [...] Egfr Non- 96.7 >60 Egfr 117.0 >60 5 Laboratory test 09/09/2018 [facility] Creatine 51 U/L N 10- [address] Kinase(CK) [place] [address] [phone] C Reactive Protein < 1.00 mg/L N <8.01 B-Type Natriuretic Peptide BNP 42 pg/mL <=100 Influenza A & B 09/09/2018 [facility] Influenza A NEGATIVE Negative [address] [place] [address] [phone] Influenza B Molecular NEGATIVE Negative Laboratory test 06/25/2018 [facility] B-Type 15 pg/mL <=[address] [place] [address] Peptide BNP [phone] Inr/Protime 06/25/2018 [facility] Inr 0.86 N 0.77-1.[address] [place] [address] [phone] Laboratory test 06/25/2018 [facility] Partial Thrombo 27.9 N 26.0-36.[address] [place] [address] [phone] Comp Metabolic 06/25/2018 [facility] Sodium 139 mmol/L N 135- [address] [place] [address] [phone] Potassium 4.2 mmol/L N 3.5-5.0 Chloride 102 [...] Egfr Non- 86.8 >60 Egfr 105.0 >60 7 Laboratory test 06/25/2018 [facility] C Reactive < 1.00 mg/L N <8.[address] [place] [address] [phone] Troponin-I (TnI) 0.00 ng/mL <0.04 8 Lactic Acid 1.6 mmol/L N 0.5-2.0 9 CBC Auto Diff 11/25/2017 [facility] White Blood 5.7 10^3/uL N 3.5-10.[address] [place] [address] [phone] Red Blood Count 4.68 10^6/uL N 4.00-5.40 [...] Cells % 0 Comp Metabolic Panel 11/25/2017 [facility] Sodium 140 mmol/L N 135-145 [address] [place] [address] [phone] Potassium 4.1 mmol/L N 3.5-5.0 Chloride 103 [...] Egfr Non- 124.9 >60 Egfr 151.1 >60 10 Urinalysis Profile 11/25/2017 [facility] Urine Color Yellow [address] [place] [address] [phone] Urine Appearance Clear Urine Specific [place] 1.017 N 1.010-1.030 Urine pH 6.0 N 5-9 Urine Urobilinogen Negative Negative Urine Ketones Negative Negative Urine Protein Negative Negative Urine Leukocytes Negative Negative Urine Blood Negative Negative Urine Nitrite Negative Negative Urine Bilirubin Negative Negative Urine Glucose Negative Negative Inr/Protime 11/25/2017 [facility] Inr 0.89 N 0.77-1.[address] [place], [place] [address] [phone] Laboratory test 11/25/2017 [facility] Partial 27.4 seconds N 26.0-36.[address] [place] [address] PTT [phone] Type & Screen 11/25/2017 [facility] Patient O Positive [address] [place] [address] [phone] Antibody Screen NEGATIVE Urine Culture And 11/25/2017 [facility] Urine Culture SEE RESULT [address] [place] [address] [phone] Urine Culture And 07/20/2017 [facility] Urine Culture SEE RESULT [address] BELOW [place], [place] [address] [phone] Laboratory test 10/01/2016 [facility] Surgical SEE RESULT 13, [address] Pathology BELOW [place], [place] [address] [phone] CBC Auto Diff 02/06/2016 [facility] White Blood 5.2 10^3/uL N 3.5- [address] Count 10.8 [place], [place] [address] [phone] Red Blood Count 4.54 10^6/uL N 4.0-5.4 [...] % 0 N Comp Metabolic Panel 02/06/2016 [facility] Sodium 137 mmol/L N 133-[address] [place] [address] [phone] Potassium 4.2 mmol/L N 3.5-5.0 Chloride 103 [...] 105.2 N >60 Egfr 135.2 N >60 15 Vitamin D, 25 11/13/2013 [facility] 25-Hydroxy Vitamin <4.0 ng/ mL N [address] D2 [place] [address] [phone] 25-Hydroxy Vitamin D3 28 ng/mL N 25-Hydroxy Vitamin D Total 28 ng/mL N 17 Comp Metabolic Panel 11/13/2013 [facility] Sodium 138 mmol/L N 133-145 [address] [place] [address] [phone] Potassium 4.1 mmol/L N 3.7-5.6 Chloride 104 [...] 115.4 N >60 Egfr 148.4 N >60 18 Lipid Profile 11/13/2013 [facility] Triglycerides 53 mg/dL N 19 (Trig/Chol/HDL) [address] [place] [address] [phone] Cholesterol 286 mg/dL N 20 HDL Cholesterol 73.8 mg/dL N 21 LDL Cholesterol 202 mg/dL N 22 Laboratory 11/13/2013 [facility] Hepatitis C Nonreactive N Nonreactive test finding [address] [facility] [place] [address] [phone] Basic 08/16/2013 [facility] Sodium 135 mmol/L N 133-145 Metabolic [address] [place] [address] [phone] Potassium 5.2 mmol/L N 3.7-5.6 Chloride 99 mmol/L Low 101-111 Co2 Carbon Dioxide 31 mmol/L N 22-32 Anion Gap 5 mmol/L N 2-11 Glucose 73 mg/dL N 70-100 Blood Urea Nitrogen 13 mg/dL N 6-24 Creatinine 0.46 mg/dL Low 0.51-0.95 BUN/Creatinine Ratio 28.3 High 8-20 Calcium 9.6 mg/dL N 8.6-10.3 Egfr Non- 135.9 N >60 Egfr 174.8 N >60 23 Laboratory test 10/16/2012 [facility] TSH (Thyroid 2.25 0.34- 5.[address] Stimulating miu/[place] [address] Horm) [phone] CBC With Manual 10/16/2012 [facility] White Blood 5.9 4.8- 10.[address] Count 10^3/uL [place], [place] [address] [phone] Red Blood Count 4.46 10^6/uL 4.0-5.4 Hemoglobin [...] RBC Morphology Normal Normal Laboratory test 10/16/2012 [facility] LDH 190 U/L High 95-[address] [place] [address] [phone] Comp Metabolic 10/16/2012 [facility] Sodium 138 mmol/L 133- [address] [place] [address] [phone] Potassium 4.0 mmol/L 3.5-5.0 Chloride 103 mmol/L [...] Egfr Non- 123.8 >60 Egfr 159.2 >60 24 Laboratory test 10/16/2012 [facility] C Reactive < 0.5 mg/dL Less than finding [address] Protein 0.5 [place] [address] [phone] Erythrocyte Sed Rate 16 mm/Hr 0-40 Comp Metabolic Panel 11/01/2011 [facility] Sodium 134 mmol/L Low 135-[address] [place] [address] [phone] Potassium 4.2 mmol/L 3.5-5.0 Chloride 102 mmol/L 101-111 Co2 (Carbon Dioxide) 29.0 mmol/L 22-32 Anion Gap 3.0 mmol/L 2-11 25 Glucose 101 mg/dL High 70-100 BUN 13 mg/dL 6-24 Creatinine 0.5 mg/dL Low 0.50-1.40 One Over Creatinine 2.00 BUN/Creatinine Ratio 26.0 High 8-20 Calcium 8.9 mg/dL 8.1-9.9 Total Protein 6.2 GM/DL 6.2-8.1 Albumin 3.9 GM/DL 3.2-5.2 Globulin 2.3 GM/DL 2-4 Albumin/Globulin Ratio 1.7 1-3 Bilirubin Total 0.7 mg/dL 0.4-1.5 26 Alkaline Phosphatase 64 U/L 30-110 Alt (SGPT) 20 U/L 14-54 Ast (Sgot) 23 U/L 12-42 eGFR Non- 124.2 > 60 eGFR 159.7 > 60 27 Lipid Profile 11/01/2011 [facility] Triglyceride 43 mg/dL 40- 200 (Trig/Chol/HDL) [address] [place] [address] [phone] Cholesterol 246 mg/dL High Less Than 200 28 High Density Lipoprotein 90 mg/dL High 40-60 29 Cholesterol/HDL Ratio 2.73 AVERAGE 1-4.44 Low Density Lipoprotein 147 mg/dL High Less Than 100 30 Laboratory test 11/01/2011 [facility] TSH 2.76 MIU/ML 0.34- 5.[address] [place] [address] [phone] Vitamin D, 25 11/01/2011 [facility] 25-Hydroxy <4.0 ng/mL () Hydroxy [address] [facility] Vitamin [place]2 [place] [address] [phone] 25-Hydroxy Vitamin D3 22 ng/mL () 25-Hydroxy Vitamin D Total 22 ng/mL Abnormal () 31 Vitamin D 1,25 11/01/2011 [facility] Vitamin D, 1,25 63 pg/mL 18-78 32 And Vitamin D,[address] [place] [address] [phone] Comp Metabolic 04/13/2011 [facility] Sodium 138 mmol/L 135- 145 Panel [address] [place] [address] [phone] Potassium 3.9 mmol/L 3.5-5.0 Chloride 101 mmol/L 101-111 Co2 (Carbon Dioxide) 29.0 mmol/L 22-32 Anion Gap 8.0 mmol/L 2-11 33 Glucose 95 mg/dL 70-100 BUN 11 mg/dL 6-24 Creatinine 0.5 mg/dL Low 0.50-1.40 One Over Creatinine 2.00 BUN/Creatinine Ratio 22.0 High 8-20 Calcium 8.8 mg/dL 8.1-9.9 Total Protein 6.2 GM/DL 6.2-8.1 Albumin 3.8 GM/DL 3.2-5.2 Globulin 2.4 GM/DL 2-4 Albumin/Globulin Ratio 1.6 1-3 Bilirubin Total 0.5 mg/dL 0.4-1.5 34 Alkaline Phosphatase 70 U/L 30-110 Alt (SGPT) 24 U/L 14-54 Ast (Sgot) 28 U/L 12-42 eGFR Non- 124.2 > 60 eGFR 159.7 > 60 35 CBC Auto Diff 04/13/2011 [facility] White Blood 5.2 CUMM 4.8- 10.[address] [place] [address] [phone] Red Cell Count 4.39 CUMM 4.2-5.4 Hemoglobin [...] 0-0.6 Abs Basophils 0.1 0-0.2 CKMB 04/13/2011 [facility] CKMB In NG/ML 4.3 NG/ML High 0.3- 4.[address] [place] [address] [phone] % CKMB 3 %MB 0-9 36 Laboratory test 04/13/2011 [facility] Troponin-I 0.01 NG/ML 0 -0.[address] [place] [address] [phone] Laboratory test 04/13/2011 [facility] CPK (Creatine 134 U/L 0 -[address] Kinase) [place] [address] [phone] Vitamin D, 25 03/19/2011 [facility] 25-Hydroxy <4.0 ng/mL () Hydroxy [address] Vitamin [place]2 [place] [address] [phone] 25-Hydroxy Vitamin D3 37 ng/mL () 25-Hydroxy Vitamin D Total 37 ng/mL () 38 Vitamin D 1,25 03/19/2011 [facility] Vitamin D, 65 pg/mL 18- 78 39 And Vitamin D,[address] 1,25 [place] [address] [phone] Laboratory test 03/19/2011 [facility] TSH 2.89 0.34-5.[address] MIU/[place] [address] [phone] Surgical 07/11/2006 [facility] Surgical [address] Path[place] [address] <SEE NOTE> [phone] 1 [facility] Severe Sepsis and Septic Shock Management Bundle Measure requires all lactic acids initially measuring >2.0 mmol/L be repeated. 2 Standard intensity warfarin therapeutic range: 2.0-3.0 High intensity warfarin therapeutic range: 2.5-3.5 3 Please note: The following may produce a false positive D Dimer test: - Rheumatoid factor greater than 60 IU/ml - Plasma hemoglobin greater than 0.05 gm/dl - Bilirubin greater than 50 mg/dl - Lipids greater than 1000 mg/dl - FDP greater than 20 ug/ml 4 Troponin-I testing on Plasma Separator Tubes (PST) has a known false positive rate of 0.20-0.40%. All positive troponins reflex immediately to secondary confirmatory testing. Using the [employer] DxI 800 Access Immunoassay systems, the 99th percentile upper reference limit was demonstrated to be < 0.03 ng/mL. 5 Because ethnic data is not always [...] 5 Kidney failure <15 (or dialysis) 6 Is Manager: [id number] 7 Because ethnic data is not always readily [...] 15-29 5 Kidney failure <15 (or dialysis) 8 Troponin-I testing on Plasma Separator Tubes (PST) has a known false positive rate of 0.20-0.40%. All positive troponins reflex immediate secondary confirmatory testing. 9 [facility] Severe Sepsis and Septic Shock Management Bundle Measure requires all lactic acids initially measuring >2.0 mmol/L be repeated. 10 Because ethnic data is not always [...] 5 Kidney failure <15 (or dialysis) 11 SEE RESULT BELOW Name: NABILA CLEARY : [address]: Akosua Guzman MD Acct: [id number] Unit: [id number] AGE: 71 Location: PAT Re11/25/17 SEX: F Status: REG REF SPEC: [id number] CUCA: 11/25/17 [facility] [address]: Akosua Guzman MD REQ: [id number] RECD: 11/25/17 STATUS: RAIZA GUDINO DR: Hugo Rogers BLOCK AND CASE MAKER _ SOURCE: URINE SPDESC: ORDERED: Urine Culture QUERIES: Urine Source: Clean Catch Procedure Result Reported Site Urine Culture Final 11/26/17- 1312 ML No Growth (<1,000 CFU/mL) * ML - Main Lab . END OF REPORT DEPARTMENT OF PATHOLOGY, [address] [place] [address] Kervin Read M.D. Director [facility] # [id number] 12 SEE RESULT BELOW Name: NABILA CLEARY : [address]: Jeni Gardner NP Acct: [id number] Unit: [id number] AGE: 71 Location: [facility] Re07/20/17 SEX: F Status: REG REF SPEC: [id number] CUCA: 07/20/[address]: Jeni Gardner NP REQ: [id number] RECD: 07/20/17 STATUS: RAIZA GUDINO DR: Abida Wadsworth MD _ SOURCE: URINE SPDESC: ORDERED: Urine Culture Procedure Result Reported Site Urine Culture Final 07/22/17- 0854 ML Organism 1 ESCHERICHIA COLI [place] Count >100,000 (Many) CFU/ML 1. ESCHERICHIA COLI [...] . END OF REPORT DEPARTMENT OF PATHOLOGY, [address] [place] [address] Kervin eRad M.D. Director [facility] # [id number] SEE RESULT BELOW Name: NABILA CLEARY : [address]: Adrian España MD Acct: [id number] Unit: [id number] AGE: 70 Location: [facility] Re10/01/16 SEX: F Status: REG REF SPEC: [id number] CUCA: 10/01/16-11[address] [facility] [address]: Adrian España MD REQ: [id number] RECD: 10/01/16 STATUS: ZAFAR GUDINO DR: Dakota Gardner BLOCK AND CASE MAKER _ ORDERED: LEVEL 4/3 COMMENTS: [id number] FINAL DIAGNOSIS 1. Skin, left cheek superior, [...] performed at Main Lab DEPARTMENT OF PATHOLOGY, [address] [place] [address] Kervin Read M.D. Director [facility] # [id number] RUN DATE: 10/06/16 [facility] LAB LIVE PAGE 2 Patient: NABILA CLEARY [id number] (Continued) GROSS DESCRIPTION (Continued) Signed (signature on file) Fatuma Morrison MD 1331 END OF REPORT * ML=Testing performed at Main Lab DEPARTMENT OF PATHOLOGY, [address] [place] [address] Kervin Read M.D. Director [facility] # [id number] 15 Because ethnic data is not always [...] 5 Kidney failure <15 (or dialysis) 16 FASTING 17 -- REFERENCE VALUE -- 25-HYDROXY D TOTAL (D2+D3) Optimum levels in the healthy population are 20-50, patients with bone disease may benefit from higher levels within this range. Test Performed by: [place] [address] Retail Service Technician: Brad Langley III, M.D. 18 Because ethnic data is not always [...] 5 Kidney failure <15 (or dialysis) 19 Desirable <150 Borderline high 150-199 High 200-499 Very High >500 20 Desirable <200 Borderline high 200-239 High >239 21 Low <40 Desirable: 40-60 High: >60 22 Desirable <100 Near Optimal 100-129 Borderline high 130-159 High 160-189 Very High >189 23 Because ethnic data is not always readily [...] 15-29 5 Kidney failure <15 (or dialysis) 24 Because ethnic data is not always readily [...] 15-29 5 Kidney failure <15 (or dialysis) 25 Anion gap measurement may be of limited value in the presence of any alkalosis, especially in a combined acid base disorder. . 26 A metabolite of Naproxen, O-desmethylnaproxen, has been shown to interfere with the Jendrassik-Stilwell method for measuring total bilirubin. Samples from patients who have taken Naproxen have shown spurious elevation in total bilirubin levels. 27 Because ethnic data is not always [...] 5 Kidney failure <15 (or dialysis) 28 CHOLESTEROL INTERPRETATION: Desirable: Less than 200 MG/DL Borderline-High Risk: 200-239 MG/DL High-Risk: 240 MG/DL and over 29 HDL INTERPRETATION: Undesirable: High Risk: Less than 40 MG/DL Desirable: Low Risk: Greater than 60 MG/DL 30 LDL INTERPRETATION: Low Risk Optimal Level: LDL Less than 100 MG/DL Near or Above Optimal: LDL 100-129 MG/DL Borderline High Risk: LDL 130-159 MG/DL High Risk: LDL 160-189 MG/DL Very High Risk: LDL Greater than 189 MG/DL 31 Interpretation: 10-24 (mild to moderate deficiency) -- REFERENCE VALUE -- 25-HYDROXY D TOTAL (D2+D3) Optimum levels in the normal population are 25-80 Test Performed by: [place] [address] Retail Service Technician: Brad Langley III, M.D. 32 Test Performed by: [address] [address] Retail Service Technician: Brad Langley III, M.D. 33 Anion gap measurement may be of limited value in the presence of any alkalosis, especially in a combined acid base disorder. . 34 A metabolite of Naproxen, O-desmethylnaproxen, has been shown to interfere with the Jendrchocoik-Stilwell method for measuring total bilirubin. Samples from [...] 5 Kidney failure <15 (or dialysis) 36 INTERPRETATION %CK-MB < 5% NOT SUPPORTIVE OF DIAGNOSIS OF [place] 5 - <10% INDETERMINATE; SUGGEST SERIAL STUDIES IF CLINICALLY INDICATED 10% OR > CONSISTENT WITH DIAGNOSIS OF [place] . 37 New Reference Range and Interpretation effective 02/16/2002 TnI (ng/ml) INTERPRETATION Less Than 0.06 ng/mL NOT SUPPORTIVE OF DIAGNOSIS OF [place] 0.06 - 0.50 ng/ml INDETERMINATE: SUGGEST SERIAL STUDIES IF CLINICALLY INDICATED. Greater than 0.5 ng/mL CONSISTENT WITH DIAGNOSIS OF [place] . 38 -- REFERENCE VALUE -- 25-HYDROXY D TOTAL (D2+D3) Optimum levels in the normal population are 25-80 Test Performed by: [facility] Dpt of Lab Med and Pathology [address] [place] [address] Retail Service Technician: Brad Langley III, M.D. 39 Test Performed by: [facility] Dpt of Lab Med and Pathology [address] [place] [address] Retail Service Technician: Brad Langley III, M.D. 40 ---- RUN DATE: 07/13/06 [facility] NMI LIVE PAGE 1 RUN TIME: 1521 Specimen Inquiry RUN USER: INTERFACE [id number] NABILA CLEARY 60/F <[facility] 07/12> ([id number]) VIC Allen MD, Celestino Nguyen -- Specimen: [id number] SOUT Spec Date: 07/11/[address]: Celestino Sierra MD Spec Type: SURGICAL P Received: 07/12/06-2725 Copies to: Maryjo Joshi MD SPECIMEN L3 -L4 DISC HISTORY PRE-OP DIAGNOSIS: L3-L4 disc protrusion GROSS DESCRIPTION The specimen is received in formalin labelled Nabila Cleary, L3-L4 Disc and consists of multiple fragments of hill-mixon fibrous soft tissue measuring 2.5 x 1.5 x 0.6 cm. in aggregate. Food Aide sections, one cassette. DIAGNOSIS Intervertebral disc, L3-4, discectomy - Intervertebral disc material. Signed Electronically by: KERVIN READ MD 07/13/06 -- -- DEPARTMENT OF PATHOLOGY, [address] [place] [address] [facility] Permit #[id number] [place] II, M.D. Director Kervin Read M.D. Powder Coat Painter D irector -- Procedures Date Code Description Status 07/19/2018 08497 Polysomnography Sleep Staging 4+ Parameters Completed 03/22/2018 36058 EKG Tracing & Interpretation Completed 12/08/2017 45551 THR Total Hip Replacement Completed 12/08/2017 35294 THR Total Hip Replacement Completed 12/06/2017 93349 Diffusing Capacity Completed 12/06/2017 46452 Plethysmography Determination Lung Volumes & Per Completed Airway Resist 12/06/2017 91615 Pulmonary Function><Bronchodil Completed 11/27/2017 78653 Sleep Study Unattended,HRT Rate,Oxygen Sat,Resp Completed Effort/Airflow 11/23/2017 93400 EKG Tracing & Interpretation Completed 03/01/2017 57372 Admin Of Inj Completed 09/02/2016 53875 Admin Of Inj Completed 03/05/2016 48783 Chemotherpy Admin Subcutaneous/Im Non-Hormonal Completed Anti-Neoplastic 08/19/2015 78650391 Mammogram Completed 08/19/2015 [id number] Bone Mineral Density Test Completed 10/10/2013 57870 EKG Tracing & Interpretation Completed 08/22/2013 [id number] Mammogram Completed 11/11/2011 82193850 Colonoscopy Completed 08/10/2011 45127 EKG Tracing & Interpretation Completed 04/13/2011 92045 Noninvasive Ear Or Pulse Oximetry For Oxygen Completed Saturation 04/13/2011 52674 EKG Tracing & Interpretation Completed 03/18/2011 255749140 Bone Mineral Density Test Completed 02/18/2011 83102949 Mammogram Completed 02/10/2011 48690 Noninvasive Ear Or Pulse Oximetry For Oxygen Completed Saturation 02/03/2011 03071 Noninvasive Ear Or Pulse Oximetry For Oxygen Completed Saturation 12/10/2010 05972 Noninvasive Ear Or Pulse Oximetry For Oxygen Completed Saturation 12/03/2010 53507 Inhalation TX For Acute Airway Obstruction Completed W/Nebulizer/Inhaler 12/03/2010 26087 Noninvasive Ear Or Pulse Oximetry For Oxygen Completed Saturation 03/25/2010 72208 EKG Tracing & Interpretation Completed 09/24/2008 101639918 Bone Mineral Density Test Completed 09/12/2008 59514 EKG Tracing & Interpretation Completed 04/26/2008 77427 Noninvasive Ear Or Pulse Oximetry For Oxygen Completed Saturation 04/26/2008 43528 Noninvasive Ear Or Pulse Oximetry For Oxygen Completed Saturation 04/26/2008 20295 Inhalation TX For Acute Airway Obstruction Completed W/Nebulizer/Inhaler 09/06/2007 87370551 Mammogram Completed 07/13/2006 38596 EKG Tracing & Interpretation Completed 07/13/2006 22592 EKG Tracing & Interpretation Completed 07/11/2006 27297 Laminotomy W/Decomp NRV RT,One Interspace,Lumbar Completed 06/23/2006 81212 EKG Tracing & Interpretation Completed 04/29/2006 [id number] Mammogram Completed Encounters Type Date Location Provider Dx Diagnosis Office Visit 08/31/2018 Pulmonology And Karli J44.9 Chronic 1:00p Sleep Services Of OLE[facility] Brito obstructive Assembling Inspector pulmonary disease, unspecified Office Visit 08/22/2018 Assembling Inspector Internal Jeni Gardner J44.9 Chronic 3:20p Medicine N.P. obstructive pulmonary disease, unspecified R10.31 Right lower quadrant pain R60.0 Localized edema Office Visit 08/18/2018 1:15p Orthopedic Services Akosua Guzman, M25.552 Pain in left Of C.M.A. M.D. 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 failure with Hospitalists hypoxia J44.1 Chronic obstructive pulmonary disease w (acute) exacerbation Office Visit 06/27/2018 8:56a [facility] Delia J96.01 Acute respiratory Assoc,jcarlos Brooks M.D. 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 breath I49.3 Ventricular premature depolarization Z87.891 Personal history of nicotine dependence J44.1 Chronic obstructive pulmonary disease w (acute) exacerbation Office Visit 12/26/2017 [facility] Internal Jeni Gardner, I10 Essential 2:40p Medicine N.P. (primary) hypertension Office Visit 12/10/2017 [facility] Grzegorz West MD J44.9 Chronic 10:37a Assoc,pc obstructive Hospitalists pulmonary disease, unspecified E78.5 Hyperlipidemia, unspecified G35 Multiple sclerosis Office Visit 12/09/2017 10:37a [facility] Darlene J44.9 Chronic Assoc,pc Emory Marks, obstructive Hospitalists BLOCK AND CASE MAKER pulmonary disease, unspecified G35 Multiple sclerosis E78.5 Hyperlipidemia, unspecified Office Visit 12/08/2017 [facility] J44.1 Chronic 10:36a Assoc,PENELOPE Brizuela obstructive Hospitalists pulmonary disease w (acute) exacerbation E78.5 Hyperlipidemia, unspecified G35 Multiple sclerosis Office Visit 11/23/2017 2:00p [facility] Internal Hugo Rogers, Z01.818 Encounter for other Medicine BLOCK AND CASE MAKER preprocedural examination M16.12 Unilateral primary osteoarthritis, left hip J44.9 Chronic obstructive pulmonary disease, unspecified G35 Multiple sclerosis Office Visit 11/14/2017 Pulmonology And Laquita Z01.811 Encounter for 9:30a Sleep Services Of MD Mynor preprocedural [facility] respiratory examination M16.11 Unilateral primary osteoarthritis, right [...] osteoarthritis, left hip Office Visit 10/21/2017 4:00p [facility] Internal Jeni Gardner, H81.10 Benign paroxysmal Medicine N.P. vertigo, unspecified ear M25.552 Pain in left hip J44.9 Chronic obstructive pulmonary disease, unspecified H61.21 Impacted cerumen, right ear Office Visit 03/16/2017 10:30a Neurohospitalist Garrison Perez G35 [facility] Alba Mckeon sclerosis Z79.899 Other correction (current) drug therapy Office Visit 01/07/2017 11:00a [facility] Internal Shane Andrea R60.0 Localized edema Medicine - Alba Wing [facility] Office Visit 12/28/2016 1:00p [facility] Internal Jeni Gardner, M54.31 Sciatica , right Medicine N.P. side J44.9 Chronic obstructive pulmonary disease, unspecified Office Visit 08/04/2016 2:20p [facility] Internal Jeni Gardner M79.661 Pain in right Medicine N.P. lower leg Z86.718 Personal history of other venous thrombosis and embolism Office Visit 07/22/2016 10:40a [facility] Internal Jeni Gardner, M54.2 Cervicalgia Medicine N.P. Office Visit 07/07/2016 10:30a Orthopedic Akosua Guzman, M25.552 Pain in left hip Services Of Alba Savage M16.12 Unilateral primary osteoarthritis, left hip Office Visit 06/22/2016 10:00a [facility] Internal Jeni Gardner, S39.013A Strain of Medicine N.P. 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 immunization S39.013A Strain of muscle, fascia and tendon of pelvis, init encntr M81.0 Age-related osteoporosis w/o current pathological fracture Office Visit 10/24/2015 1:20p [facility] Internal Jeni Gardner M81.0 Age- related Medicine N.P. osteoporosis w/o current pathological fracture Office Visit 08/12/2015 10:40a [facility] Internal Jeni Gardner, Z00.00 Encntr for general [...] Encounter for immunization Office Visit 04/30/2015 4:20p [facility] Internal Hugo Sue, J20.9 Acute bronchitis, Medicine BLOCK AND CASE MAKER unspecified J44.1 Chronic obstructive pulmonary disease w (acute) exacerbation Office Visit 11/26/2014 10:00a [facility] Garrison Perez 340 Multiple Services Of Oj Mckeon M.D. Sclerosis 780.79 Malaise And Fatigue Other Office Visit 06/07/2014 10:00a [facility] Internal Jeni Gardner, 496 COPD Airway Medicine N.P. Obstruction Chronic Not Class Elsewhere 724.5 Backache Unspec 733.00 Osteoporosis Unspec 720.2 Sacroiliitis Not Elsewhere Classified Office Visit 06/05/2014 2:20p [facility] Internal Jeni Gardner, 724.5 Backache Unspec Medicine N.P. 720.2 Sacroiliitis Not Elsewhere Classified 728.85 Spasm Muscle Office Visit 04/10/2014 11:20a [facility] Internal Jeni Gardner, 496 COPD Airway Medicine N.P. Obstruction Chronic Not Class Elsewhere Office Visit 03/27/2014 9:00a [facility] Internal Jeni Gardner, 496 COPD Airway Medicine N.P. Obstruction Chronic Not Class Elsewhere Office Visit 03/21/2014 11:40a [facility] Internal Jeni Gardner, 496 COPD Airway Medicine N.P. Obstruction Chronic Not Class Elsewhere Office Visit 11/27/2013 9:00a [facility] Internal Jeni Gardner, 272.4 Hyperlipidemia Other Medicine N.P. Unspec 564.00 Constipation Unspecified Office Visit 10/23/2013 2:15p [facility] Trinity Perez 340 Multiple Services Of Oj Mckeon M.D. Sclerosis Office Visit 10/10/2013 2:00p [facility] Internal Maryjo Joshi, V70.0 Examination Medicine Alba, [...] Disorders Other Spec Office Visit 09/04/2013 11:20a [facility] Internal Maryjo Joshi, 496 COPD Airway Medicine Alba, FACP Obstruction Chronic Not Class Elsewhere 530.81 Esophageal Reflux 575.8 Gallbladder Disorders Other Spec Office Visit 08/16/2013 3:40p [facility] Internal Maryjo Madelyn, 496 COPD Airway Medicine Alba, FACP Obstruction Chronic Not Class Elsewhere 530.81 Esophageal Reflux Office Visit 04/19/2013 4:00p [facility] Internal Maryjo Joshi, 466.0 Bronchitis Acute Medicine Alba, FACP Office Visit 02/22/2013 9:00a [facility] Internal Maryjolisa Joshi, 564.1 Irritable Bowel Medicine Alba, FACP Syndrome 496 COPD Airway Obstruction Chronic Not Class Elsewhere 300.00 Anxiety State Unspec 340 Multiple Sclerosis Office Visit 11/06/2012 11:20a [facility] Internal Maryjo Joshi, 715.14 Osteoarthrosis Medicine Alba, FACP Localized Prim Hand 780.79 Malaise And Fatigue Other Office Visit 10/16/2012 11:20a [facility] Internal Maryjo Joshi, 780.79 Malaise And Medicine Alba, FACP Fatigue Other 785.6 Lymph Nodes Enlargement Office Visit 10/04/2012 2:45p [facility] Garrison Perez 340 Multiple Services Of [facility] Alba Mckeon Sclerosis Office Visit 05/01/2012 9:40a [facility] Internal Jeni Gardner, 340 Multiple Medicine N.P. Sclerosis 380.4 Impacted Cerumen 466.0 Bronchitis Acute Office Visit 04/27/2012 10:40a [facility] Internal Jeni Gardner, 466.0 Bronchitis Acute Medicine N.P. 380.4 Impacted Cerumen Office Visit 03/03/2012 3:40p [facility] Internal Jeni Gardner, 466.0 Bronchitis Acute Medicine N.P. Office Visit 11/08/2011 8:40a [facility] Internal eJni Gardner, 268.9 Vitamin D Medicine N.P. Deficiency Unspec 272.4 Hyperlipidemia Other Unspec 305.1 Tobacco Use Disorder Office Visit 09/06/2011 4:20p [facility] Internal Abida 528.6 Oral Soft Tissue Medicine Alba Wadsworth Exlud Ginviva & Tongue Leukoplakia Mucosa 923.10 Contusion Forearm Office Visit 08/10/2011 2:20p [facility] Internal Maryjo Joshi, V70.0 Examination Medicine Alba, [...] Not Use Maryjo Madelyn, 596.9 Bladder Oj-Deysi Rodriguez.Viri, FACP Disorders Unspec 300.00 Anxiety State Unspec [...] Use Jeni Varn, 466.0 Bronchitis Acute 3:45p Assembling Inspector-Mineral N.P. Office Visit 04/24/2009 DO Not Use [...] Use Jeni Varn, 461.9 Sinusitis Acute 2:30p Assembling Inspector-Mineral N.P. 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 Radial Styloid 719.41 Pain Joint Shoulder Region Office Visit 06/19/2008 DO Not Use Jeni Varn, 466.0 Bronchitis Acute 4:00p Assembling Inspector-Mineral N.P. Office Visit 04/26/2008 DO Not Use Maryjo Madelyn, 496 COPD Airway 3:45p Gavino Willis, FACP Obstruction Chronic Not Class Elsewhere 466.0 Bronchitis Acute Office Visit 04/15/2008 DO Not Use Jeni Varn, 611.72 Lump Or Mass 3:30p Oj-Deysi N.P. Breast Office Visit 02/16/2008 DO Not [...] Jeni Kendra, 599.0 UTI Urinary Tract 3:45p Oj-Mineral N.P. Infection Site Not Spec Office Visit 03/28/2007 Neurosurgery Celestino Mercado 724.2 Lumbago 3:30p Services Of Oj Allen M.D. Office Visit 02/07/2007 DO Not Use Jeni Kendra, 564.00 Constipation 11:45a Oj-Mineral N.P. Unspecified 465.9 URI Upper Respiratory Infections [...] Visit 09/20/2006 12:00p DO Not Use Maryjo Joshi, 780.79 Malaise [...] Not Use Jeni 720.2 Sacroiliitis Not 4:00p [facility]-Deysi Gardner, N.P. Elsewhere Classified 719.45 Pain Joint Pelvic Region & Thigh 340 Multiple Sclerosis 564.00 Constipation Unspecified Office Visit 06/23/2006 2:30p DO Not Use Maryjo Madelyn, V70.0 [facility] FACP General Medical Routine AT [facility] 340 Multiple Sclerosis V06.1 Psbklvjijn-Vnajzwc-Fmqpcljk Combined (DTaP) Office Visit 12/30/2005 11:15a DO Not Use Maryjo Madelyn, 610.0 Cyst Breast Gavino Willis, FACP Solitary 340 Multiple Sclerosis 272.4 Hyperlipidemia Other Unspec Plan of Treatment Future Appointment(s):10/02/2018 3:30 pm - Akosua Guzman M.D. at [facility]11/21/2018 1:45 pm - Garrison Mckeon M.D. at [facility]/18/2018 2:20 pm - Jeni Gardner, N.P. at [facility] Internal Ofbdlyzc88/29/2019 11:30 am - Laquita Lowe MD at [facility]ology [facility]09/27/2018 - Shane Wing M.D.J44.1 Chronic obstructive pulmonary disease with (acute) exacerbatNew Medication:Prednisone 20 mg - 1 by mouth every day; take 2 a day for the first 3 daysComments:Severe COPD with increased sx over the past 2 days. Resume steroid Rx and increase nebulizers to 4 times a day with Ventolin inhaler in between and additionally as needed. ER jesus advised promptly nakita increased shortness of breath sx noted
--- NOTE | 2018-10-27 01:05 | ED ---
Shortness of Breath - HPI Summary HPI Summary: The pt is a 72 y/o F brought in by EMS to [facility] for SOB that has persisted throughout the day. Pt was at home when she was walking to the kitchen and suffered from SOB this morning and that the SOB has persisted all day. She reports having congestion without a productive cough early this morning and expiratory wheezing that has persisted throughout the day. She denies any alleviating factors other than the EMS Tx. And also that deep breaths, positional changes, and exertion aggravate her symptoms. She denies any CP, N/V/ D, and a fever. She denies a fever while at home and stated that she called EMS. EMS administered breathing treatments while enroute with 2 duonebs and 10mg dexamethason IM per EMS. She reports that this feeling is similar to when she was Dx with bronchitis per EMS. She has a Hx of COPD. - History of Current Complaint Chief Complaint: EDShortnessOfBreath Time Seen by Provider: 10/27/18 00:47 Hx Obtained From: Patient, EMS Onset/Duration: Gradual Onset, Lasting Days - 1, Still Present, Worse Since Timing: Constant Current Severity: Moderate Dyspnea At: Exertion Aggravating Factors: Movement, Deep Breaths, Other - exertion Alleviating Factors: EMS Tx Associated Signs & Symptoms: Negative - Fever, CP, N/V/D, Cough (Nonproductive) , Wheezing, Nasal Congestion Related History: Similar Episode - Bronchitis per EMS - Allergy/Home Medications Allergies/Adverse Reactions: Allergies Allergy/AdvReac Type Severity Reaction Status Date / Time amoxicillin [From Augmentin] Allergy Intermediate Hives Verified 10/27/18 01:16 clavulanic acid Allergy Intermediate Hives Verified 10/27/18 01:16 [From Augmentin] Sulfa (Sulfonamide Allergy Intermediate Hives Verified 10/27/18 01:16 Antibiotics) PMH/Surg Hx/FS Hx/Imm Hx Previously Healthy: No Endocrine/Hematology History: Reports: Hx Anticoagulant Therapy - 81 mg aspirin , Hx Thyroid Disease - hypothyroidism, Hx Anemia Denies: Hx Diabetes Cardiovascular History: Reports: Hx Deep Vein Thrombosis - hx 9 years ago (DVT bilateral lower legs)., Hx Hypercholesterolemia Denies: Hx Congestive Heart Failure, Hx Hypertension, Hx Myocardial Infarction, Hx Pacemaker/ICD, Other Cardiovascular Problems/Disorders Respiratory History: Reports: Hx Asthma, Hx Chronic Obstructive Pulmonary Disease (COPD), Hx Lung Cancer, Hx Pneumonia Denies: Hx Pulmonary Embolism, Hx Sleep Apnea - IN process of sleep studies GI History: Reports: Other GI Disorders - bloating, occassional diarrhea Denies: Hx Gall Bladder Disease, Hx Gastrointestinal Bleed, Hx Ulcer, Hx Urosepsis History: Reports: Other Problems/Disorders - dribbling incontinence @ times Denies: Hx Dialysis, Hx Kidney Stones, Hx Renal Disease Musculoskeletal History: Reports: Hx Arthritis - Bilateral hips and hands, Hx Osteoporosis Denies: Other Musculoskeletal History Sensory History: Reports: Hx Contacts or Glasses - bi-focal Denies: Hx Hearing Aid Opthamlomology History: Reports: Hx Contacts or Glasses - bi-focal Neurological History: Reports: Hx Nerve Disease - Multiple Sclerosis, Other Neuro Impairments/Disorders - MS Denies: Hx Dementia, Hx Migraine, Hx Seizures, Hx Transient Ischemic Attacks (TIA) Psychiatric History: Reports: Hx Depression Denies: Hx Anxiety, Hx Panic Disorder, Hx Schizophrenia, Hx Bipolar Disorder , Other Psychiatric Issues/Disorders - Cancer History Hx Chemotherapy: No Hx Radiation Therapy: No - Surgical History Surgery Procedure, Year, and Place: TONSILECTOMY; APPENDECTOMY; PARTIAL HYSTERECTOMY; EXPLORATORY THYROID; DISCECTOMY LOW BACK-2006; BREAST BIOPSY CLIP -Rt, LEFT HIP REPLACEMENT 12/2017 Hx Anesthesia Reactions: Yes - 1963- had a hard time waking her up from anesthesia - Immunization History Date of Influenza Vaccine: UTD Infectious Disease History: No Infectious Disease History: Denies: Hx Clostridium Difficile, Hx Hepatitis, Hx Human Immunodeficiency Virus (HIV), Hx of Known/Suspected MRSA, Hx Shingles, Hx Tuberculosis, Hx Known/ Suspected VRE, History Other Infectious Disease, Traveled Outside the [place] in Last 30 Days - Family History Known Family History: Positive: Cardiac Disease, Diabetes, Other - MS Negative: Hypertension - Social History Alcohol Use: Rare Hx Substance Use: No Substance Use Type: Reports: None Hx Tobacco Use: Yes Smoking Status (MU): Former Smoker Type: Cigarettes, eCigarettes Amount Used/How Often: 1/2-pack per day for 40 years Length of Time of Smoking/Using Tobacco: 40 years Have You Smoked in the Last Year: Yes Review of Systems Negative: Fever Positive: Other - congestion Negative: Chest Pain Positive: Shortness Of Breath. Negative: Cough - Denies productive cough Negative: Vomiting, Diarrhea, Nausea All Other Systems Reviewed And Are Negative: Yes Physical Exam - Summary Physical Exam Summary: VITAL SIGNS: Reviewed. GENERAL: Patient is a well-developed and nourished female who is lying comfortable in the stretcher. Patient is not in any acute respiratory distress. HEAD AND FACE: No signs of trauma. No ecchymosis, hematomas or skull depressions. No sinus tenderness. EYES: PERRLA, EOMI x 2, No injected conjunctiva, no nystagmus. EARS: Hearing grossly intact. Ear canals and tympanic membranes are within normal limits. MOUTH: Oropharynx within normal limits. NECK: Supple, trachea is midline, no adenopathy, no JVD, no carotid bruit, no c- spine tenderness, neck with full ROM CHEST: Symmetric, no tenderness at palpation LUNGS: Bilateral expiatory wheezes, decreased breath sounds bilaterally. CVS: Regular rate and rhythm, S1 and S2 present, no murmurs or gallops appreciated. ABDOMEN: Soft, non-tender. No signs of distention. No rebound no guarding, and no masses palpated. Bowel sounds are normal. EXTREMITIES: FROM in all major joints, no edema, no cyanosis or clubbing. NEURO: Alert and oriented x 3. No acute neurological deficits. Speech is normal and follows commands. SKIN: Dry and warm Triage Information Reviewed: Yes Vital Signs On Initial Exam: Initial Vitals Temp Pulse Resp BP Pulse Ox 98.8 F 107 30 192/124 98 10/27/18 00:50 10/27/18 00:50 10/27/18 00:50 10/27/18 00:50 10/27/18 00:50 Vital Signs Reviewed: Yes Diagnostics - Vital Signs Vital Signs Temp Pulse Resp BP Pulse Ox 10/27/18 00:50 98.8 F 107 30 192/124 98 - Laboratory Result Diagrams: 10/27/18 01:08 10/27/18 01:08 Lab Statement: Any lab studies that have been ordered have been reviewed, and results considered in the medical decision making process. - Radiology CXR Radiology Interpretation Completed By: ED Physician Summary of Radiographic Findings: Hyperinflation, no acute infiltrate, consistent with COPD. Pending official review. Re-Evaluation - Re-Evaluation First Eval Re-Evaluation Time: 01:58 Change: Unchanged Comment: Pt received 2 duonebs, one albuterol and magnesium sulfate. She still has expiratory wheezes. Course/Dx - Course Course Of Treatment: The pt is a 72 y/o F brought in by EMS to [facility] for SOB that has persisted throughout the day. Pt was at home when she was walking to the kitchen and suffered from SOB this morning and that the SOB has persisted all day. She reports having congestion without a productive cough early this morning and expiratory wheezing that has persisted throughout the day. EMS administered breathing treatments while enroute with 2 duonebs and 10mg dexamethason IM per EMS. She reports that this feeling is similar to when she was Dx with bronchitis per EMS. She has a Hx of COPD. Upon PE the pt has Bilateral expiatory wheezes and decreased breath sounds bilaterally. She received a CXR that shows Hyperinflation, no acute infiltrate, consistent with COPD. She also received the following medications: Albuterol 2.5 INH, and Magnesium Sulfate 2 gm in 50 ml IVPB. The pt will be admitted to Dr. Wong, Hospitalist, with a Dx of COPD after a consult at 0200 on 10/27/18. - Diagnoses Differential Diagnosis/HQI/PQRI: Positive: COPD Exacerbation - Physician Notifications Discussed Care of Patient With: Renetta Wong Time Discussed With Above Provider: 02:02 Instructed by Provider To: Admit As Inpatient Admit/Transition Orders Completed By ED Provider: Yes Discharge - Sign-Out/Discharge Documenting (check all that apply): Patient Departure - admitted Patient Received Moderate/Deep Sedation with Procedure: No - Discharge Plan Condition: Stable Disposition: ADMITTED TO [facility] - Billing Disposition and Condition Condition: STABLE Disposition: Admitted to [facility] - Attestation Statements Document Initiated by Scribe: Yes Documenting Scribe: Leo Pittman Provider For Whom Vita is Documenting (Include Credential): Ron Dorman MD. Scribe Attestation: Leo Zamarripa, rayrayed for Ron Dorman MD. on 10/27/18 at 0634. Scribe Documentation Reviewed: Yes Provider Attestation: The documentation as recorded by the Leo gonzalez accurately reflects the service I personally performed and the decisions made by me, Ron Dorman MD. Status of Scribe Document: Viewed
[2018-10-27 01:34] LABS: ABS Basophils 0.1 10^3/ul (0-0.2); ABS Eosinophils 0.3 10^3/ul (0-0.6); ABS Neutrophils 4.2 10^3/ul (1.5-7.7); Hematocrit 46 % (35-47); Hemoglobin 15.4 g/dL (12.0-16.0); Lymphocyte % 26.9 %; Mean Corpuscular HGB Conc 34 g/dL (31-36); Mean Corpuscular Hemoglobin 31 pg (27-31); Mean Corpuscular Volume 93 fL (80-97); Platelet Count 255 10^3/uL (150-450); Red Blood Count 4.94 10^6 /uL (3.70-4.87); Red Cell Distribution Width 15 % (10-15); White Blood Count 7.6 10^3/uL (3.5-10.8)
[2018-10-27 01:43] LABS: Activated Partial Thrombo Time 30.2 seconds (26.0-38.0); INR 0.92 (0.82-1.09)
[2018-10-27 01:54] LABS: Albumin/Globulin Ratio 1.5 (1-3); BUN/Creatinine Ratio 31.1 (8-20); C Reactive Protein 2.2 mg/L (<8.01); Calcium 10.1 mg/dL (8.6-10.3); EGFR Non-African American 96.7 (>60); Globulin 2.6 g/dL (2-4); Total Bilirubin 0.3 mg/dL (0.2-1.0); Total Protein 6.6 g/dL (6.4-8.9)
[2018-10-27] MEDS ORDERED: Baclofen TAB* 10 MG PO ONE (03:05)
[2018-10-27] MEDS ORDERED: Baclofen TAB* 10 MG PO PRN (03:08)
[2018-10-27] MEDS ORDERED: Carisoprodol TAB* 350 MG PO PRN (03:08)
[2018-10-27] MEDS: Albuterol/Ipratropium NEB.SOL* Albuterol 2.5 MG/Ipratropium 0.5 MG 3 ML INH SCH ×3 (03:44→11:21)
[2018-10-27] MEDS: Enoxaparin(*) 40 MG/0.4 ML SYR SUBCUT SCH (04:10)
[2018-10-27] MEDS: PTO:Umeclidin/Vilant 62.5 MDI 62.5/25 mcg 14 INH ELLIPTA DEVICE INH SCH ×2 (07:37→18:05)
[2018-10-27] MEDS: Venlafaxine EXT RELEASE CAP* 75 MG PO SCH (08:58)
[2018-10-27] MEDS: predniSONE TAB* 20 MG PO SCH (08:58)
[2018-10-27] MEDS: Pregabalin CAP(*) 100 MG PO SCH ×2 (08:59→20:59)
[2018-10-27] MEDS: Ascorbic Acid TAB* 500 MG PO SCH (08:59)
[2018-10-27] MEDS: Aspirin EC TAB* 81 MG TAB.EC PO SCH (09:00)
--- NOTE | 2018-10-27 09:18 | HP ---
CC: Jeni Gardner NP HISTORY AND PHYSICAL: DATE OF ADMISSION: 10/28/2018 PRIMARY CARE PHYSICIAN: Jeni Gardner NP. HEALTHCARE PROXY: , James. CODE STATUS: Full code. CHIEF COMPLAINT: Two days of shortness of breath. HISTORY OF PRESENT ILLNESS: Ms. Cleary is a 72-year-old woman with a history of COPD, MS, osteoporosis, and remote provoked DVT who is presenting with 2 days of progressive nonproductive cough, shortness of breath, and dyspnea on exertion. She states that she had recently finished a prednisone taper approximately 2 days before these symptoms started. She was on a prednisone taper per her primary care physician and, of note, approximately 8 weeks ago, she was also discharged from this hospital on a prednisone taper after an admission for COPD exacerbation. She states that due to the progressive nature of these symptoms, she decided to present to the emergency room. She has had a sore throat and runny nose recently, and this does not feel like her prior episodes of pneumonia. She reports that one day prior to her presentation she had a couple of hours of dizziness and lightheadedness that self-resolved. She denies abdominal pain, nausea, vomiting, constipation, or diarrhea. She has not recently missed any doses of her home medications and she has no sick contacts. En route to the hospital, the patient was given DuoNebs with 10 mg of dexamethasone IM. In the ER, she was given magnesium, methylprednisolone 125 mg IV, and further nebulizer treatment and has now experienced slight improvement in her symptoms. Of note, the patient had a hospitalization most recently from 09/09/18 to for hypoxemic respiratory failure due to chronic COPD. During that admission , she was given steroids and was discharged home on a taper with followup with Dr. Lowe. The patient also had an admission in June of this year also for COPD exacerbation. During that admission, she was treated with antibiotics and she again had required supplemental oxygen only while in the hospital. PAST MEDICAL HISTORY: 1. COPD with frequent exacerbations. 2. MS. 3. Osteoporosis. 4. Restless leg syndrome. 5. Anxiety. 6. History of DVT after surgery, no longer on anticoagulation. HOME MEDICATIONS: 1. Anoro 62.5/25 one inhalation daily. 2. Albuterol and Atrovent nebulizers. 3. Combivent 2 puffs 4 times a day. 4. Venlafaxine 150 mg daily. 5. Pregabalin 100 mg twice a day. 6. Carisoprodol 350 mg at bedtime as needed for muscle spasm. 7. Baclofen 5 mg twice a day for muscle spasm. 8. Atorvastatin 20 mg daily. 9. Aspirin 81 mg daily. 10. Vitamin C 500 mg daily. 11. Denosumab 60 mg injection every 6 months. ALLERGIES: AUGMENTIN and SULFA ANTIBIOTICS cause hives. FAMILY HISTORY: Father from COPD in his 60s. Mother from stroke at age 90, also had heart disease. SOCIAL HISTORY: She lives with her . 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 She quit tobacco in 2011, a 40 pack-year history prior to that. Rare alcohol use. No other drug use. Her and her daughter Leigh are her surrogate decision makers. REVIEW OF SYSTEMS: A complete 10-point review of systems was performed and pertinent positives and negatives are listed in the HPI. PHYSICAL EXAMINATION GENERAL: She appears her stated age, is resting on stretcher, conversing in full sentences with myself and her family. She is not in acute distress. She has moderately increased work of breathing. VITAL SIGNS: Afebrile, heart rate 102, blood pressure 136/68, respiratory rate 19, oxygen saturation 91% on 2 L. HEENT: Extraocular movements intact. Sclerae anicteric. OP clear. Moist mucous membranes. NECK: Supple. No JVD. LUNGS: Diminished sounds throughout with mild expiratory wheezes diffusely. HEART: Tachycardiac. Regular rhythm. No murmurs, gallops, or rubs. ABDOMEN: Soft, nontender, nondistended. EXTREMITIES: Warm and well perfused. No clubbing or cyanosis. The patient has 1+ pitting edema two-thirds up right vallejo with diameter of right calf greater than left calf. NEURO: A and O x3. Speech clear and fluent. DIAGNOSTIC STUDIES/LAB DATA: CBC and coags unremarkable. Bicarb mildly elevated to 33. Chest x-ray with hyperinflation. ASSESSMENT AND PLAN: A 72-year-old woman with chronic obstructive pulmonary disease with multiple recent exacerbations, multiple sclerosis, osteoporosis, anxiety, and history of DVT who is presenting to the emergency room with progressive shortness of breath, dyspnea on exertion, and dry cough, found with new oxygen requirement. 1. Chronic obstructive pulmonary disease exacerbation. It is possible given upper respiratory symptoms that this exacerbation is triggered by a viral infection. However, on exam, also noted that the patient had right lower extremity swelling with history of DVT remotely in that leg, so it is possible that frequent exacerbations could be from pulmonary embolism. We will start with venous Dopplers in the morning and continue treatment for chronic obstructive pulmonary disease exacerbation with prednisone burst, which will likely need to be followed with a long slow taper given recent recurrence of symptoms once prior taper was stopped. Continue home Anoro inhaler. She will also be given DuoNebs for the first 24 hours and then albuterol as needed after that. We will wean supplemental oxygen as tolerated with a goal SaO2 of 88% to 92%. Avoid hyperoxia. Given very low concern for infection at this time, we will not start the patient on antibiotics. She is status post IV methylprednisolone and magnesium in the emergency room. 2. Multiple sclerosis. Continue home muscle relaxants, baclofen and Soma as needed, and continue home Lyrica. 3. History of osteoporosis. Defer treatment to outpatient. 4. Anxiety. Continue the patient's home venlafaxine 150 mg daily. 5. CVD, primary prevention. Continue the patient's home aspirin and statin. 6. DVT prophylaxis. Initiate Lovenox daily. 7. Code status. Full code. TIME SPENT: Approximately 60 minutes were spent on admission of this patient, over half of which was spent at bedside for interview and exam. [id number]/[facility] #: [id number] TOM
[2018-10-27] MEDS ORDERED: Benzonatate CAP* 100 MG PO PRN (14:27)
--- NOTE | 2018-10-27 16:02 | ECHO ---
*[facility]* [place] [address] Fax #: [phone] Transthoracic Echocardiogram Patient: Evin, Height: 66 in / Nabila Paiz 167.6 cm : 1945 Weight: 124.7 lb / Study Date: 10/27/2018 56.7 kg Age: 72 BP: 148 / 81 Gender: F BMI/BSA: 20.2 kg/m^2 HR: 104 bpm / 1.64 m^2 *Funeral Home Assistant: * Noemi Amin [facility] *Referring Physician: * Grzegorz West *Reading Physician: * hSin Dubon MD Indications: SOB. Chest Pain, unspecified. History: Risk factors: Current tobacco use. Multiple Sclerosis. Conclusions Summary: 1. Left ventricle: The cavity size is normal. Systolic function is normal. The estimated ejection fraction is 55-60%. Wall motion is normal; there are no regional wall motion abnormalities. 2. Normal cardiac chamber sizes. 3. Functionally benign heart valves. 4. There is no prior echocardiogram available to compare with at this time. Study data: Transthoracic echocardiogram. Procedure: Transthoracic echocardiography was performed. Image quality was adequate. The study was technically limited due to COPD. Complete 2D, spectral Doppler, and color flow Doppler. Patient status: Inpatient. Patient room number: 413-2. Rhythm: Tachycardia. Findings Left ventricle: The cavity size is normal. Systolic function is normal. The estimated ejection fraction is 55-60%. Wall motion is normal; there are no regional wall motion abnormalities. Left ventricular diastolic function parameters are indeterminate. Right ventricle: Well visualized. The cavity size is normal. Wall thickness is normal. Systolic function is normal. Left atrium: Well visualized. The atrium is normal in size. Right atrium: Well visualized. The atrium is normal in size. Mitral valve: Well visualized. The leaflets are mildly thickened. There is no significant regurgitation. Aortic valve: Well visualized. The valve is trileaflet. The leaflets are normal thickness. There is no evidence of stenosis. There is no significant regurgitation. Tricuspid valve: Well visualized. The leaflets are normal thickness. There is no significant regurgitation. Unable to estimate pulmonary artery systolic pressure. Pulmonic valve: Not well visualized. The leaflets are normal thickness. There is no evidence of stenosis. There is no significant regurgitation. Aorta: The aorta is well visualized and normal. Pericardium: There is no pericardial effusion. Pulmonary arteries: Not well visualized. Systemic veins: Not well visualized. Pulmonary veins: Not well visualized. Measurements Left ventricle Value Ref Right atrium continued Value Ref YISSEL, LAX (L) 3.0 cm 3.8 - SI dim, ES, A4C 4.3 cm 3.4 - 5.3 5.2 SI dim/bsa, ES, 2.6 cm/m^2 1.9 - 3.1 ESD, LAX 2.6 cm 2.2 - A4C 3.5 FS, LAX (L) 16 % Aortic valve Value Ref PW, ED, LAX (H) 1.0 cm 0.6 - Cayetano diam, ED 2.2 cm --------- 0.9 Cayetano diam/bsa, ED 1.3 cm/m^2 --------- FS (L) 15 % Peak v, S 1.51 m/sec --------- Mid-wall FS 6 % -------- VTI, S 25.9 cm --------- PW, ED (H) 1.0 cm 0.6 - Accel time 32 ms --------- 0.9 Mean grad, S 4.0 mm Hg --------- PW/ID, ED 0.34 -------- Peak grad, S 9.0 mm Hg --------- E', lat cayetano, TDI (L) 9.4 cm/sec >=10.0 LVOT/AV, VTI 0.86 - -------- E/e', lat cayetano, TDI 8 -------- ratio E', med cayetano, TDI 7.1 cm/sec >=7.0 AR peak v 1.41 m/sec - -------- E/e', med cayetano, TDI 11 -------- AR peak grad 8 mm Hg ---- ----- E', avg, TDI 8.3 cm/sec -------- E/e', avg, TDI 9 <=14 Mitral valve Value R ef Peak E 0.77 m/sec --------- LVOT Value Ref Peak A 1.3 m/sec --------- Peak ayaz, S 1.19 m/sec -------- Decel time 161 ms --------- VTI, S 22.4 cm -------- Peak grad, D 2.4 mm Hg --------- Peak grad, S 6 mm Hg -------- Peak E/A ratio 0.6 --------- Mean grad, S 3 mm Hg -------- Pulmonic valve Value Ref Ventricular septum Value Ref Peak v, S 0.9 m/sec --------- IVS, ED (H) 1.1 cm 0.6 - Peak grad, S 3.0 mm Hg --------- 0.9 Aortic root Value Ref Right ventricle Value Ref Root diam 3.0 cm <3.9 YISSEL, LAX 2.9 cm -------- Root max diam, 3.0 cm <3.9 YISSEL minor ax, A4C 2.8 cm 1.9 - ED mid 3.5 Ascending aorta Value Ref Left atrium Value Ref AAo AP diam, S 3.0 cm --------- ML dim, A4C 3.1 cm -------- AAo AP diam/bsa, 1.8 cm/m^2 --------- SI dim, A4C 5.1 cm -------- S Vol/bsa, ES, 1-p 19 ml/m^2 11 - 40 A4C Inferior vena cava Value Ref Vol/bsa, ES, A/L 19 ml/m^2 16 - 34 Diam 1.4 cm --------- Right atrium Value Ref SI dim, ES 4.3 cm 3.4 - 5.3 ML dim, ES, A4C 2.9 cm 2.6 - 4.4 Legend: (L) and (H) garret values outside specified reference range. Prepared and electronically signed by Shin Dubon MD 10/27/2018 16:02
--- NOTE | 2018-10-27 16:34 | PN ---
Hospitalist Progress Note Pt seen and examined. Nabila Cleary is a 72yo female PMH COPD, anxiety, remote provoked DVT who three days prior to admission finished a steroid taper. Presenting with BOURGEOIS, loud wheezing, nonproductive cough. Treating for COPD exacerbation. R>L LE edema (negative duplex). Is orthopenic to 30 degrees (in recliner) for about 3 years or so. Had severe chest discomfort two day prior to admission immediately after swallowing that resolved after 15 minutes. Will add BNP, EKG and ECHO (which she has never had). Continue inhalers, steroids, wean O2 as able, ambulate.
[2018-10-27] MEDS: Atorvastatin* 20 MG TAB PO SCH (18:05)
[2018-10-27] MEDS: guaiFENesin ER TAB 600 MG PO SCH (18:05)
[2018-10-27] MEDS ORDERED: Acetaminophen TAB* 325 MG PO PRN (19:26)
[2018-10-27] MEDS: Albuterol 2.5 MG/3 ML NEB.SOL* (0.083%) INH PRN (20:33)
[2018-10-28] MEDS: Enoxaparin(*) 40 MG/0.4 ML SYR SUBCUT SCH (03:01)
[2018-10-28] MEDS: PTO:Umeclidin/Vilant 62.5 MDI 62.5/25 mcg 14 INH ELLIPTA DEVICE INH SCH (08:10)
[2018-10-28] MEDS: Albuterol 2.5 MG/3 ML NEB.SOL* (0.083%) INH PRN (08:15)
[2018-10-28] MEDS: Pregabalin CAP(*) 100 MG PO SCH ×2 (09:37→20:48)
[2018-10-28] MEDS: guaiFENesin ER TAB 600 MG PO SCH ×2 (09:37→20:48)
[2018-10-28] MEDS: predniSONE TAB* 20 MG PO SCH (09:37)
[2018-10-28] MEDS: Aspirin EC TAB* 81 MG TAB.EC PO SCH (09:38)
[2018-10-28] MEDS: Venlafaxine EXT RELEASE CAP* 75 MG PO SCH (09:38)
[2018-10-28] MEDS: Ascorbic Acid TAB* 500 MG PO SCH (09:38)
[2018-10-28] MEDS ORDERED: Albuterol/Ipratropium NEB.SOL* Albuterol 2.5 MG/Ipratropium 0.5 MG 3 ML INH PRN ×2 (10:07→10:08)
[2018-10-28] MEDS ORDERED: Albuterol/Ipratropium NEB.SOL* Albuterol 2.5 MG/Ipratropium 0.5 MG 3 ML INH SCH (11:00)
[2018-10-28] MEDS: Albuterol/Ipratropium NEB.SOL* Albuterol 2.5 MG/Ipratropium 0.5 MG 3 ML INH SCH ×2 (13:23→19:30)
--- NOTE | 2018-10-28 15:20 | PN ---
Subjective Interval History: No acute events overnight, afebrile Feeling better, still some wheezing. Off oxygen and could walk half way around unit before stopping with SOB. At 95% on 2L ambulating, 90% of RA ambulating D. Mynor appointment on 12/11 Nabila has been playing phone tag, still trying to arrange pulmonary rehab with Shila Vargas. Very severe obstructive defect on November 2017 PFTs. Had been off Advair for ~6 months then delay in getting the Anora Ellipta in August. Used to be on a benzo several years ago for her "MS" through Dr. Mckeon. Sinus Tach and 1 run of SVT on tele. mucinex helped tremendously with the cough. tessalon ineffective. no chest pain, abd pain, n/v/d/c. Objective Active Medications: Acetaminophen (Tylenol Tab*) 650 mg PO Q4H PRN PRN Reason: FEVER/PAIN Last Admin: 10/27/18 19:48 Dose: 650 mg Albuterol/Ipratropium (Duoneb (Albuterol 2.5 Mg/Ipratropium 0.5 Mg)) 1 neb INH Q2H PRN PRN Reason: SOB/WHEEZING Albuterol/Ipratropium (Duoneb (Albuterol 2.5 Mg/Ipratropium 0.5 Mg)) 1 neb INH Q6H [facility] Last Admin: 10/28/18 13:23 Dose: 1 neb Ascorbic Acid (Vitamin C Tab*) 500 mg PO QAM [facility] Last Admin: 10/28/18 09:38 Dose: 500 mg Aspirin (Aspirin Ec Tab*) 81 mg PO QAM [facility] Last Admin: 10/28/18 09:38 Dose: 81 mg Atorvastatin Calcium (Lipitor*) 20 mg PO 1700 [facility] Last Admin: 10/27/18 18:05 Dose: 20 mg Azithromycin (Zithromax Tab*) 500 mg PO DAILY [facility] Stop: 10/30/18 09:01 Baclofen (Lioresal Tab*) 5 mg PO BID PRN PRN Reason: SPASMS Last Admin: 10/28/18 00:38 Dose: 5 mg Carisoprodol (Soma Tab*) 350 mg PO BEDTIME PRN PRN Reason: muscle cramp Diltiazem HCl (Cardizem Cd Cap*) 120 mg PO DAILY [facility] Enoxaparin Sodium (Lovenox(*)) 40 mg SUBCUT Q24H [facility] Last Admin: 10/28/18 03:01 Dose: 40 mg Guaifenesin (Mucinex*) 600 mg PO BID [facility] Last Admin: 10/28/18 09:37 Dose: 600 mg Prednisone (Deltasone Tab*) 40 mg PO DAILY [facility] Stop: 10/30/18 09:01 Last Admin: 10/28/18 09:37 Dose: 40 mg Pregabalin (Lyrica Cap(*)) 100 mg PO BID [facility] Last Admin: 10/28/18 09:37 Dose: 100 mg Umeclidinium/Vilanterol (Anoro 62.5/25 Ellipta Device (Nf)) 1 inh INH DAILY [facility] Last Admin: 10/28/18 08:10 Dose: 1 inh Venlafaxine HCl (Effexor Xr Cap*) 150 mg PO DAILY [facility] Last Admin: 10/28/18 09:38 Dose: 150 mg Vital Signs - 8 hr 10/28/18 10/28/18 10/28/18 08:00 08:15 09:37 Temperature Pulse Rate 92 Respiratory 20 16 20 Rate Blood Pressure (mmHg) O2 Sat by Pulse 93 Oximetry 10/28/18 10/28/18 10/28/18 10:09 11:00 13:40 Temperature 98.3 F Pulse Rate 89 103 Respiratory 20 18 Rate Blood Pressure 143/70 (mmHg) O2 Sat by Pulse 90 95 93 Oximetry Oxygen Devices in Use Now: None Appearance: NAD Eyes: No Scleral Icterus Ears/Nose/Mouth/Throat: NL Teeth, Lips, Gums Respiratory: - - moderate air exchange (worse at bases), expiratory wheezing. Cardiovascular: NL Sounds; No Murmurs; No JVD, RRR Abdominal: NL Sounds; No Tenderness; No Distention, No Hepatosplenomegaly Extremities: - - RLE 1+ edema Skin: No Rash or Ulcers Neurological: Alert and Oriented x 3, NL Sensation, NL Muscle Strength and Tone Nutrition: Taking PO's Result Diagrams: 10/27/18 01:08 10/27/18 01:08 Assess/Plan/Problems-Billing Assessment: 72 yo female PMH very severe COPD (not on home oxygen), MS, anxiety presenting with BOURGEOIS, wheezing, nonproductive cough two days after finished a prednisone taper. Suspected COPD exacerbation. - Patient Problems (1) COPD with acute exacerbation Current Visit: No Status: Acute Code(s): J44.1 - CHRONIC OBSTRUCTIVE PULMONARY DISEASE W (ACUTE) EXACERBATION SNOMED Code(s): 397619067 Comment: - improving - continue home anora ellipta (brought by pt), change albuterol nebs to include ipratropium, make q6 with q2h prn, - continue prednisone 40mg. - add azithromycin very severe obstruction on November 2017 PFTs per office notes. - plan for pulm rehab as outpatient. (2) Orthopnea Current Visit: Yes Status: Acute Code(s): R06.01 - ORTHOPNEA SNOMED Code(s ): 05891979 Comment: s/p ECHO with pEF no significant valvular dysfunction. ?tachy arrhymia related. (3) Anxiety Current Visit: Yes Status: Acute Code(s): F41.9 - ANXIETY DISORDER, UNSPECIFIED SNOMED Code(s): 92662741 Comment: add xanax 0.25 mg TID prn (4) Acute hypoxemic respiratory failure Current Visit: No Status: Acute Code(s): J96.01 - ACUTE RESPIRATORY FAILURE WITH HYPOXIA SNOMED Code(s): 816274766 Comment: - Secondary to COPD exacerbation. - resolved. (5) DVT prophylaxis Current Visit: No Status: Acute Code(s): XOL8062 - SNOMED Code(s): 325952896 Comment: - Lovenox. (6) Full code status Current Visit: No Status: Acute Code(s): Z78.9 - OTHER SPECIFIED HEALTH STATUS SNOMED Code(s): 609395516 (7) Multiple sclerosis Current Visit: No Status: Acute Code(s): G35 - MULTIPLE SCLEROSIS SNOMED Code(s): 40241816 Comment: - Stable. - Continue Baclofen, Carisoprodol (8) Tachyarrhythmia Current Visit: Yes Status: Acute Code(s): R00.0 - TACHYCARDIA, UNSPECIFIED SNOMED Code(s): 8569447 Comment: few bouts of SVT and sinus tachycardia. add dilt cd 120. continue tele. consideration for xopenex on d/c. Status and Disposition: medicine inpatient likely d/c in next 24-48 hours.
[2018-10-28] MEDS: ALPRAZolam TAB* 0.25 MG PO PRN (16:12)
[2018-10-28] MEDS: Diltiazem CD CAP* 120 MG PO SCH (16:12)
[2018-10-28] MEDS: Azithromycin TAB* 250 MG PO SCH (16:12)
[2018-10-28] MEDS: Atorvastatin* 20 MG TAB PO SCH (18:21)
[2018-10-29] MEDS: Albuterol/Ipratropium NEB.SOL* Albuterol 2.5 MG/Ipratropium 0.5 MG 3 ML INH SCH ×3 (01:21→13:56)
[2018-10-29] MEDS: Enoxaparin(*) 40 MG/0.4 ML SYR SUBCUT SCH (03:06)
[2018-10-29 07:52] VITALS: BP 141/76
[2018-10-29] MEDS: PTO:Umeclidin/Vilant 62.5 MDI 62.5/25 mcg 14 INH ELLIPTA DEVICE INH SCH (08:24)
[2018-10-29] MEDS: predniSONE TAB* 20 MG PO SCH (08:48)
[2018-10-29] MEDS: Azithromycin TAB* 250 MG PO SCH (08:48)
[2018-10-29] MEDS: Aspirin EC TAB* 81 MG TAB.EC PO SCH (08:48)
[2018-10-29] MEDS: Venlafaxine EXT RELEASE CAP* 75 MG PO SCH (08:48)
[2018-10-29] MEDS: guaiFENesin ER TAB 600 MG PO SCH (08:49)
[2018-10-29] MEDS: Ascorbic Acid TAB* 500 MG PO SCH (08:49)
[2018-10-29] MEDS: Diltiazem CD CAP* 120 MG PO SCH (08:49)
[2018-10-29] MEDS: Pregabalin CAP(*) 100 MG PO SCH (08:49)
[2018-10-29] MEDS: ALPRAZolam TAB* 0.25 MG PO PRN (08:58)
--- NOTE | 2018-10-29 15:27 | DS ---
DISCHARGE SUMMARY: DATE OF ADMISSION: 10/27/18 DATE OF DISCHARGE: 10/29/18 ADMITTING PROVIDER: Renetta Wong MD PRIMARY CARE PHYSICIAN: Jeni Gardner NP ATTENDING PHYSICIAN ON DAY OF DISCHARGE: Grzegorz West MD. CHIEF COMPLAINT: Shortness of breath, nonproductive cough, dyspnea on exertion , and wheezing. PRINCIPAL DIAGNOSIS: Acute chronic obstructive pulmonary disease exacerbation in the setting of very severe chronic obstructive pulmonary disease; anxiety; intermittent sinus tachycardia and supraventricular tachycardia. HISTORY OF PRESENT ILLNESS AND HOSPITAL COURSE: Ms. Cleary is a 72-year-old female with past medical history of very severe COPD (last PFT is November 2017), multiple sclerosis, osteoporosis, anxiety, remote provoked DVT, who recently 2 days prior to admission finished a prednisone course for a recent COPD exacerbation. She became more short of breath, coughing nonproductively, dyspneic on exertion, and wheezing. She had also been hospitalized in June 2018 with a COPD exacerbation. She had a sore throat and runny nose recently, please see H&P of Renetta Wong for full details. She had an episode of dizziness, lightheadedness the day prior to admission and 2 days prior to admission also had an episode of pain upon swallowing in her chest that resolved after 15 minutes. [place] [facility] [place] she was given DuoNeb with 10 mg of IM dexamethasone. In the ER, she was given Solu- Medrol 125 mg IV, magnesium, nebulizer treatments. She was admitted to the hospitalist service. Her chest x-ray did not show any evidence of acute cardiopulmonary process, but otherwise hyperinflated lungs gonzalez were noted. She has been complaining of right lower leg swelling and a Doppler ultrasound did not show any clot there. Her D-dimer was also less than 200. She had complaints of orthopnea for the last several years, requiring her to sleep in at least a 30 degree position. An echocardiogram was checked on 10/27/18, which showed ejection fraction 55% to 60%, no regional wall motion abnormalities. No heart valve pathology, could not estimate RVSP as there was no tricuspid regurgitation. BNP has also been checked and that was 48. RNs reported episodes of seemingly a irregular heart beat, so she was put on telemetry with episodes of some sinus tachycardia and short runs of SVT. Her EKG on 10/27/18 demonstrated sinus tachycardia, rate 106, evidence of biatrial enlargement. She was started on diltiazem CD 120 mg daily. There was no biatrial enlargement on the echocardiogram. She was also started on Xanax 0.25 mg t.i.d. p.r.n. for anxiety attacks, where she has a history of having been taking Effexor for a number of years and then she is being discharged (per her insurance formulary) on clonazepam 0.25mg b.i.d. p.r.n. She tolerated the ambulation without the need for oxygen on the day prior to discharge and again day of discharge. As an outpatients, she has been playing phone tag with Josephine Tenorio to set up pulmonary rehab and is encouraged to do so. The day prior to discharge, she was also started on azithromycin given the COPD exacerbation. Continued course on her Anoro Ellipta, DuoNeb. She had no leukocytosis, CRP was 2.2. She also improved really symptomatically from an addition of Mucinex ( Tessalon Perles were not effective). DISCHARGE MEDICATIONS: 1. Anoro Ellipta 1 inhaled daily. 2. Prednisone 40 mg for next 4 days and then 20 mg for the next 4 days and stop. If breathing worsens again, could consider a more prolonged taper (new). 3. Atrovent 0.5 mg inhaled b.i.d. 4. Guaifenesin 1200 mg p.o. q.2 hours p.r.n. (new). 5. Diltiazem 120 mg p.o. daily (new). 6. Prolia 60 mg q.6 months. 7. Clonazepam 0.25 mg p.o. b.i.d. p.r.n. (15 tabs for anxiety) (new). 8. Azithromycin 250 mg p.o. daily for 3 more days (new). 9. Combivent plus inhaler q.i.d. p.r.n. 10. Ventolin 2.5 mg nebulizer inhaled t.i.d. p.r.n. 11. Flexeril 150 mg p.o. daily. 12. Lyrica 100 mg p.o. b.i.d. 13. Baclofen 5 mg p.o. b.i.d. 14. Atorvastatin 20 mg daily. 15. Aspirin 81 mg daily. 16. Ascorbic acid 500 mg p.o. q.a.m. FOLLOWUP: Please follow up with primary care provider Jeni Gardner within [address] Lowe, her contract preparer within 2 weeks and Josephine Tenorio with Pulmonary Rehab within the next 2 weeks as well. DISCHARGE DISPOSITION: Home. CONDITION: Improved. DIET: Heart healthy. TIME SPENT: Time spent on discharge was 40 minutes. [id number]/[facility] #: [id number] TOM
== END 2018-10-29 15:00 | disposition home or self-care (01) | DRG 190 ==
LOC: ED 00:40 → MED 02:35
PROVIDERS: ADMIT Internal Medicine; ATTEND Internal Medicine
DX: J44.1 Chronic obstructive pulmonary disease with (acute) exacerbation (principal); J96.01 Acute respiratory failure with hypoxia; I47.1 Supraventricular tachycardia; F41.9 Anxiety disorder, unspecified; G35 Multiple sclerosis; M81.0 Age-related osteoporosis without current pathological fracture; E03.9 Hypothyroidism, unspecified; E78.00 Pure hypercholesterolemia, unspecified; J45.909 Unspecified asthma, uncomplicated; M16.0 Bilateral primary osteoarthritis of hip; M19.042 Primary osteoarthritis, left hand; M19.041 Primary osteoarthritis, right hand; F32.9 Major depressive disorder, single episode, unspecified; Z96.642 Presence of left artificial hip joint; M79.89 Other specified soft tissue disorders; G25.81 Restless legs syndrome; Z88.1 Allergy status to other antibiotic agents; Z88.2 Allergy status to sulfonamides; Z86.718 Personal history of other venous thrombosis and embolism; Z79.82 Long term (current) use of aspirin; Z82.5 Family history of asthma and other chronic lower respiratory diseases; Z82.3 Family history of stroke; Z82.49 Family history of ischemic heart disease and other diseases of the circulatory system; Z87.891 Personal history of nicotine dependence; Z72.89 Other problems related to lifestyle; Z90.711 Acquired absence of uterus with remaining cervical stump; Z83.3 Family history of diabetes mellitus; Z83.2 Family history of diseases of the blood and blood-forming organs and certain disorders involving the immune mechanism
CPT/HCPCS: 36415; 71045; 80053; 83880; 85025; 85379; 85610; 85730; 86140; 93005; 93306; 93970; 94640; 99284; A9270-GY; G8978-GP-CI; G8979-GP-CH; J1650; J3475; J7512

== ENCOUNTER 2018-11-20 19:01 | Emergency (ER) | payer MEDICARE, OTHER ==
--- OUTSIDE RECORDS SUMMARY | 2018-11-20 19:08 | XMS REPORT | Continuity of Care Document ---
:1945 External Reference #:[id number] Author Name Marimar Vivar Care Team Providers Name Role Phone Abida Wadsworth MD Primary Care Physician Unavailable Payers Date Identification Numbers Payment Provider Subscriber Effective: 2012 Policy Number: [id number] Medicare Nabila Cleary PayID: [id number] [address] [place] [address] Effective: 2016 Policy Number: [id number] [employer] Nabila Cleary Expires: 2017 PayID: [id number] [address] [address] Effective: 2012 Policy Number: [id number] [employer] Nabila Cleary Expires: 2016 PayID: [id number] [address] [address] Effective: 2009 Policy Number: [id number] BS Of [facility] Nabila Cleary Expires: 2011 Group Number: [id number] [address] PayID: [id number] [address] [address] Policy Number: [id number] [facility] Nabila Cleary PayID: [id number] [address] [place] [address] Problems Active Problems Provider Date Chronic obstructive lung disease Maryjo Joshi M.D., FACP Onset: 12/03/2010 Multiple sclerosis Maryjo Joshi M.D., FACP Onset: 12/03/2010 Tobacco user Maryjo Joshi M.D., FACP Onset: 03/15/2011 Localized, primary osteoarthritis of the Akosuadeonte Guzman M.D. 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 74047Pcst Tablets Anoro Ellipta 1 inhalation daily 60units J44.9 Karli 08/31/2018 OLENA Brito 62.5-25mcg/Inh Aerosol Baclofen 1/2 po qhs prn 45tabs Garrison Perez 06/19/2018 10mg ruben Mckeon M.D. Tablets Walker front wheeled 1units Akosua Guzman, 10/31/2017 [facility] carloz dx: severe M.D. b/L hip OA Nebulizer use three times a 1units Jeni Kendra, 07/18/2017 Device day as needed N.P. Prolia [...] times a day as Nebulizer needed Ipratropium [place] use in nebulizer 60units J44.9 Jeni Gardner, 2010 up to four times a N.P. 0.02% Solution day as needed Vitamin C 1 po qd Unknown 500mg Chewtabs Fish Oil 1 po qd Unknown 1200mg Capsules Lyrica take 1 tablet by 90caps Jeni Gardner, 100mg mouth 3 times N.P. Capsules daily. max/day=3 mdd 3 History Medications Prednisone 1 by mouth every 20tabs J44.1 Shane Andrea 09/27/2018 - 20mg day; take 2 a day Alba Wing 10/04/2018 Tablets for the first 3 days Prednisone 4 tab daily for 1 49tabs [...] Gardner, 03/03/2012 - prn cough N.P. 10/04/2012 Ergocalciferol one po once 8caps 268.9 Maryjo Joshi, 11/08/2011 - weekly M.D., FACP 01/07/2012 [id number] Capsules Advair Diskus inhale 1 dose by 180units Jeni Gardner, 06/16/2011 - mouth twice a day N.P. 10/21/2017 250-50mcg/Dose Aerosol Estrace 1 application two 42.500gm 596.9 Maryjo Joshi, 03/15/2011 - 0.1mg/GM times weekly M.D., FACP 04/27/2012 Cream Levofloxacin 1 po qd 7tabs 496 Maryjo Joshi, 02/03/2011 - 500mg M.D., FACP 04/15/2011 Tablets Advair Diskus 1 puff bid 1units Maryjo Madelyn, 02/03/2011 - M.D., [facility] 06/16/2011 500-50mcg/Dose Aerosol Alprazolam 1 tab three times 30tabs 300.00 Maryjo Joshi, 12/28/2010 - 0.25mg daily as needed M.D., [facility] 08/10/2011 Tablets Prednisone 1 tablet by mouth 15tabs 496 Maryjo Joshi, 12/10/2010 - 10mg every morning for M.D., FACP 02/03/2011 Tablets one week - then 1/2 tablet by mouth for one week - then 1/4 tablet by mouth for one week Robitussin ac 1-2 tsp at 4Oz 496 Maryjo Joshi, 12/10/2010 - bedtime as needed M.D., [facility] 08/09/2011 Solution Wellbutrin SR 1 by mouth every 30tabs 496 Maryjo Joshi, 12/10/2010 - 100mg Am M.D., [facility] 02/03/2011 Tablets ER 12HR Nebulizer use as directed J44.9 Maryjo Joshi, 12/10/2010 - M.D., [facility] 07/18/2017 Prednisone 4 tabs po qd x 4d 50tabs 496 Maryjo Joshi, 12/03/2010 - 5mg then 3 tabs po qd M.D., [facility] 12/10/2010 Tablets x 3d then 2 tabs po qd x 2d then 1 tab po qd x 1 d then 1/2 tab po qd x 2d. Levofloxacin 1 tab by mouth 7tabs 496 Maryjo Joshi, 12/03/2010 - 500mg every day M.D., [facility] 12/10/2010 Tablets Combivent inhale 2 puffs by 14.7units Jeni Gardner, 09/14/2010 - mouth tid N.P. 12/12/2014 18-103mcg/Act Aerosol Aspirin 1 by mouth once Abida 03/25/2010 - 81mg Tablets daily Alba Wadsworth 12/26/2017 Chantix use as directed 1units Maryjo Joshi, 12/02/2009 - Start Pack M.D., [facility] 03/25/2010 Effexor XR 1 tablet daily 90caps Maryjo Joshi, 12/01/2009 - 150mg Caps M.D., [facility] 02/22/2011 ER 24HR Soma 1 tab by mouth q6 90tabs Garrison Perez 12/01/2009 - 350mg Tablets hours as needed Alba Mckeon 06/19/2018 mdd 4 Prednisone Tapered dose Unknown - 20mg 10/19/2018 Tablets Oxycodone-Acetaminop [place], - hen MD Suleiman 06/12/2018 5-325mg Tablets Warfarin Sodium [place], - 3mg MD Suleiman 06/12/2018 Tablets Warfarin Sodium [place], - 1mg MD Suleiman 06/12/2018 Tablets Baclofen 1 tablet bid as Unknown - 5mg Tablets needed 06/19/2018 Copaxone 1 inj daily 90units Garrison Perez - 20mg/ml Charmaine Mckeon M.D. 03/16/2017 Prefill Syringe Lipitor 1 po qd 90tabs 272.4 Jeni Kendra, - 20mg Tablets N.P. 01/14/2014 Alendronate Sodium take 1 tablet by 4tabs Maryjo Joshi, - mouth every week M.D., FACP 08/10/2011 70mg Tabs Azithromycin 2 tabs po day 1 6units Maryjolisa Joshi, - 250mg then 1 po qd til M.D., FACP 12/01/2009 done Cheratussin ac 1-2 tsp po qhs 118ml Maryjolisa Joshi, - prn M.D., FACP 12/01/2009 100-10mg/5ML Combivent 1 Inhalation Maryjo Joshi, - Twice A Day as 09/14/2010 103-18mcg/Act Needed Advair Diskus 1 inhalation 3months Maryjolisa Joshi, - twice daily M.D., FACP 02/03/2011 250-50mcg/Dose Medications Administered in Office Medication SIG Qnty Indications Ordering Provider Date Prolia Injection, Denosumab, 1MG Hugo Rogers NP 09/15/2018 Injection Prolia Injection, Denosumab, 1MG Nurse Visit A 03/01/2017 Injection Prolia Injection, Denosumab, 1MG Nurse Visit A 09/02/2016 Injection Prolia Injection, Denosumab, 1MG Nurse Visit A 03/05/2016 Injection Immunizations CPT Code Status Date Vaccine Reaction Lot # [id number] Given 10/18/2018 Tetanus And Diptheria (Td) no Immediate [id number] For Adult Use Preservative reaction. Free 27080 Given 02/09/2016 Influenza Virus Vaccine, no reaction noted [id number] Quadrivalent, Split, .... hh Preservative Free 28033 Given 08/12/2015 Pneumococcal Conjugate [id number] Vaccine 13 Valent For Intramuscular Use Q2039 Given 03/05/2015 Flu Vaccine NOS 34712 Given 02/26/2014 Fluzone High Dose Q2037 Given 04/18/2012 Fluvirin Im 3Yrs And Older Q2037 Given 04/18/2012 Fluvirin Im 3Yrs And Older [id number] 95374 Given 04/18/2012 Zoster (Zostavax) [id number] 01916 Given 02/03/2011 Influenza Virus 3Yrs & Over [id number] 75424 Given 03/20/2010 Influenza Virus 3Yrs & Over [id number] 66008 Given 04/24/2009 Administration Swine Flu Shot 04474 Given 04/24/2009 Influenza Virus Vaccine, Pandemic Formulation 66402 Given 02/24/2009 Influenza Virus 3Yrs & Over 74239 Given 02/16/2008 Pneumonia Vaccine 26745 Given 02/16/2008 Pneumonia Vaccine 28415 Given 02/16/2008 Influenza Virus 3Yrs & Over 12925 Given 04/18/2007 Influenza Virus 3Yrs & Over 03990 Given 06/23/2006 Tdap - Tetanus/Diptheria/Acellular Pertussis 61709 Given 06/23/2006 Tdap - Tetanus/Diptheria/Acellular Pertussis 91821 Given 04/04/2006 Influenza Virus 3Yrs & Over [...] Diastolic 73 mmHg O2 % BldC Oximetry 05479 % BMI (Body Mass Index) 18.2 kg/m2 [...] Result H/L Range Note CBC Auto Diff 10/27/2018 [facility] White Blood 7.6 10^3/uL N 3.5-10.[address] [place] [address] [phone] Red Blood Count 4.94 10^6/uL High 3.70-4.87 Hemoglobin 15.4 g/dL N 12.0-16.0 Hematocrit 46 % N 35-47 Mean Corpuscular Volume 93 fL N 80-97 Mean Corpuscular Hemoglobin 31 pg N 27-31 Mean Corpuscular HGB Conc 34 g/dL N 31-36 Red Cell Distribution Width 15 % N 10-15 Platelet Count 255 10^3/uL N 150-450 Mean Platelet Volume 8.0 fL N 7.4-10.4 Abs Neutrophils 4.2 10^3/uL N 1.5-7.7 Abs Lymphocytes 2.0 10^3/uL N 1.0-4.8 Abs Monocytes 1.0 10^3/uL High 0-0.8 Abs Eosinophils 0.3 10^3/uL N 0-0.6 Abs Basophils 0.1 10^3/uL N 0-0.2 Abs Nucleated RBC 0.0 10^3/uL Granulocyte % 54.8 % Lymphocyte % 26.9 % Monocyte % 13.1 % Eosinophil % 4.0 % Basophil % 1.2 % Nucleated Red Blood Cells % 0.0 Inr/Protime 10/27/2018 [facility] Inr 0.92 N 0.82-1.[address] [place] [address] [phone] Laboratory test 10/27/2018 [facility] Partial 30.2 seconds N 26.0-38.[address] [place] [address] PTT [phone] Comp Metabolic 10/27/2018 [facility] Sodium 142 mmol/L N 135- [address] [place] [address] [phone] Potassium 4.0 mmol/L N 3.5-5.0 Chloride 105 mmol/L N 101-111 Co2 Carbon Dioxide 33 mmol/L High 22-32 Anion Gap 4 mmol/L N 2-11 Glucose 141 mg/dL High 70-100 Blood Urea Nitrogen 19 mg/dL N 6-24 Creatinine 0.61 mg/dL N 0.51-0.95 BUN/Creatinine Ratio 31.1 High 8-20 Calcium 10.1 mg/dL N 8.6-10.3 Total Protein 6.6 g/dL N 6.4-8.9 Albumin 4.0 g/dL N 3.2-5.2 Globulin 2.6 g/dL N 2-4 Albumin/Globulin Ratio 1.5 N 1-3 Total Bilirubin 0.30 mg/dL N 0.2-1.0 Alkaline Phosphatase 62 U/L N 34-104 Alt 14 U/L N 7-52 Ast 18 U/L N 13-39 Egfr Non- 96.7 >60 Egfr 117.0 >60 2 Laboratory test 10/27/2018 [facility] C Reactive 2.20 mg/L N < 8.[address] [place] [address] [phone] B-Type Natriuretic Peptide BNP 48 pg/mL <=100 Lipid Profile 10/10/2018 [facility] Triglycerides 78 mg/dL 3 (Trig/Chol/HDL) [address] [place] [address] [phone] Cholesterol 294 mg/dL 4 HDL Cholesterol 96.7 mg/dL 5 LDL Cholesterol 182 mg/dL 6 Comp Metabolic Panel 10/10/2018 [facility] Sodium 140 mmol/L N 135-[address] [place] [address] [phone] Potassium 4.1 mmol/L N 3.5-5.0 Chloride 104 [...] Egfr Non- 91.5 >60 Egfr 110.7 >60 7 Laboratory test 10/10/2018 [facility] Vitamin D 15.6 ng/mL Low 20-50 [address] Total 25(Oh) [place] [address] [phone] CBC Auto Diff 10/10/2018 [facility] White Blood 10.5 N 3.5- 10.[address] Count 10^3/[place] [address] [phone] Red Blood Count 4.96 10^6/uL High 3.70-4.87 [...] Cells % 0.0 CBC Auto Diff 09/09/2018 [facility] White Blood 7.8 10^3/uL N 3.5-10.[address] [place] [address] [phone] Red Blood Count 5.26 10^6/uL High 3.70-4.87 [...] Blood Cells % 0.2 Laboratory test 09/09/2018 [facility] Troponin-I (TnI) 0.01 ng/ mL <0.04 9 finding [address] [place] [address] [phone] CKMB 09/09/2018 [facility] CKMB ng/mL 3.0 ng/mL N 0.6-6.[address] [place] [address] [phone] Comp Metabolic 09/09/2018 [facility] Sodium 140 mmol/L N 135- [address] [facility] [place] [address] [phone] Potassium 4.5 mmol/L N 3.5-5.0 Chloride 104 [...] Egfr Non- 96.7 >60 Egfr 117.0 >60 10 Laboratory test 09/09/2018 [facility] Creatine 51 U/L N 10- [address] Kinase(CK) [place] [address] [phone] C Reactive Protein < 1.00 mg/L N <8.01 B-Type Natriuretic Peptide BNP 42 pg/mL <=100 Influenza A & B 09/09/2018 [facility] Influenza A NEGATIVE Negative [address] [place] [address] [phone] Influenza B Molecular NEGATIVE Negative Laboratory test 09/09/2018 [facility] Partial 27.4 seconds N 26.0-36.[address] [place] [address] PTT [phone] D Dimer Quantitative < 200 ng/mL N Less Than 230 12 Inr/Protime 09/09/2018 [facility] Inr 0.94 N 0.82-1.[address] [place] [address] [phone] Laboratory test 09/09/2018 [facility] Lactic Acid 1.1 mmol/L N 0.5-2.0 [address] [place] [address] [phone] Laboratory test 06/25/2018 [facility] B-Type 15 pg/mL <=[address] [place] [address] Peptide BNP [phone] Inr/Protime 06/25/2018 [facility] Inr 0.86 N 0.77-1.[address] [place] [address] [phone] Laboratory test 06/25/2018 [facility] Partial Thrombo 27.9 N 26.0-36.[address] [place] [address] [phone] Comp Metabolic 06/25/2018 [facility] Sodium 139 mmol/L N 135- [address] [place] [address] [phone] Potassium 4.2 mmol/L N 3.5-5.0 Chloride 102 [...] Egfr Non- 86.8 >60 Egfr 105.0 >60 15 Laboratory test 06/25/2018 [facility] C Reactive < 1.00 mg/L N <8.[address] [place] [address] [phone] Troponin-I (TnI) 0.00 ng/mL <0.04 16 Lactic Acid 1.6 mmol/L N 0.5-2.0 17 CBC Auto Diff 11/25/2017 [facility] White Blood 5.7 10^3/uL N 3.5-10.[address] [place] [address] [phone] Red Blood Count 4.68 10^6/uL N 4.00-5.40 [...] Cells % 0 Comp Metabolic Panel 11/25/2017 [facility] Sodium 140 mmol/L N 135-[address] [place] [address] [phone] Potassium 4.1 mmol/L N 3.5-5.0 Chloride 103 [...] Egfr Non- 124.9 >60 Egfr 151.1 >60 18 Urinalysis Profile 11/25/2017 [facility] Urine Color Yellow [address] [place] [address] [phone] Urine Appearance Clear Urine Specific [place] 1.017 N 1.010-1.030 Urine pH 6.0 N 5-9 Urine Urobilinogen Negative Negative Urine Ketones Negative Negative Urine Protein Negative Negative Urine Leukocytes Negative Negative Urine Blood Negative Negative Urine Nitrite Negative Negative Urine Bilirubin Negative Negative Urine Glucose Negative Negative Inr/Protime 11/25/2017 [facility] Inr 0.89 N 0.77-1.[address] [place], [place] [phone] Laboratory test 11/25/2017 [facility] Partial 27.4 seconds N 26.0-36.[address] [place] [address] PTT [phone] Type & Screen 11/25/2017 [facility] Patient O Positive [address] [place] [address] [phone] Antibody Screen NEGATIVE Urine Culture And 11/25/2017 [facility] Urine Culture SEE RESULT [address] [place] [address] [phone] Urine Culture And 07/20/2017 [facility] Urine Culture SEE RESULT [address] BELOW [place], [place] [address] [phone] Laboratory test 10/01/2016 [facility] Surgical SEE RESULT 21, [address] Pathology BELOW [place], [place] [address] [phone] Comp Metabolic 02/06/2016 [facility] Sodium 137 mmol/L N 133- Panel [address] [place] [address] [phone] Potassium 4.2 mmol/L N 3.5-5.0 Chloride 103 [...] 105.2 N >60 Egfr 135.2 N >60 23 CBC Auto Diff 02/06/2016 [facility] White Blood 5.2 10^3/uL N 3.5-10.[address] [place] [address] [phone] Red Blood Count 4.54 10^6/uL N 4.0-5.4 [...] Cells % 0 N Lipid Profile 11/13/2013 [facility] Triglycerides 53 mg/dL N 24, 25 (Trig/Chol/HDL) [address] [place] [address] [phone] Cholesterol 286 mg/dL N 26 HDL Cholesterol 73.8 mg/dL N 27 LDL Cholesterol 202 mg/dL N 28 Comp Metabolic Panel 11/13/2013 [facility] Sodium 138 mmol/L N 133-[address] [place] [address] [phone] Potassium 4.1 mmol/L N 3.7-5.6 Chloride 104 [...] 115.4 N >60 Egfr 148.4 N >60 29 Vitamin D, 25 11/13/2013 [facility] 25-Hydroxy Vitamin <4.0 ng/ mL N Hydroxy [address] [facility] D2 [place] [address] [phone] 25-Hydroxy Vitamin D3 28 ng/mL N 25-Hydroxy Vitamin D Total 28 ng/mL N 30 Laboratory 11/13/2013 [facility] Hepatitis C Nonreactive N Nonreactive test finding [address] [place] [address] [phone] Basic 08/16/2013 [facility] Sodium 135 mmol/L N 133-[address] [place] [address] [phone] Potassium 5.2 mmol/L N 3.7-5.6 Chloride 99 mmol/L Low 101-111 Co2 Carbon Dioxide 31 mmol/L N 22-32 Anion Gap 5 mmol/L N 2-11 Glucose 73 mg/dL N 70-100 Blood Urea Nitrogen 13 mg/dL N 6-24 Creatinine 0.46 mg/dL Low 0.51-0.95 BUN/Creatinine Ratio 28.3 High 8-20 Calcium 9.6 mg/dL N 8.6-10.3 Egfr Non- 135.9 N >60 Egfr 174.8 N >60 31 Laboratory test 10/16/2012 [facility] TSH (Thyroid 2.25 0.34- 5.[address] Stimulating miu/[place] [address] Horm) [phone] CBC With Manual 10/16/2012 [facility] White Blood 5.9 4.8- 10.[address] Count 10^3/[place] [address] [phone] Red Blood Count 4.46 10^6/uL 4.0-5.4 Hemoglobin [...] RBC Morphology Normal Normal Laboratory test 10/16/2012 [facility] LDH 190 U/L High 95-[address] [place] [address] [phone] Comp Metabolic 10/16/2012 [facility] Sodium 138 mmol/L 133- [address] [place] [address] [phone] Potassium 4.0 mmol/L 3.5-5.0 Chloride 103 mmol/L [...] Egfr Non- 123.8 >60 Egfr 159.2 >60 32 Laboratory test 10/16/2012 [facility] C Reactive < 0.5 mg/dL Less than finding [address] Protein 0.5 [place] [address] [phone] Erythrocyte Sed Rate 16 mm/Hr 0-40 Vitamin D 1,25 11/01/2011 [facility] Vitamin D, 1,25 63 pg/mL 18-78 33 And Vitamin D,[address] [place] [address] [phone] Vitamin D, 25 11/01/2011 [facility] 25-Hydroxy <4.0 ng/mL () Hydroxy [address] Vitamin D2 [place] [address] [phone] 25-Hydroxy Vitamin D3 22 ng/mL () 25-Hydroxy Vitamin D Total 22 ng/mL Abnormal () 34 Laboratory test 11/01/2011 [facility] TSH 2.76 MIU/ML 0.34- 5.[address] [place] [address] [phone] Comp Metabolic 11/01/2011 [facility] Sodium 134 mmol/L Low 135 -[address] [place] [address] [phone] Potassium 4.2 mmol/L 3.5-5.0 Chloride 102 mmol/L 101-111 Co2 (Carbon Dioxide) 29.0 mmol/L 22-32 Anion Gap 3.0 mmol/L 2-11 35 Glucose 101 mg/dL High 70-100 BUN 13 mg/dL 6-24 Creatinine 0.5 mg/dL Low 0.50-1.40 One Over Creatinine 2.00 BUN/Creatinine Ratio 26.0 High 8-20 Calcium 8.9 mg/dL 8.1-9.9 Total Protein 6.2 GM/DL 6.2-8.1 Albumin 3.9 GM/DL 3.2-5.2 Globulin 2.3 GM/DL 2-4 Albumin/Globulin Ratio 1.7 1-3 Bilirubin Total 0.7 mg/dL 0.4-1.5 36 Alkaline Phosphatase 64 U/L 30-110 Alt (SGPT) 20 U/L 14-54 Ast (Sgot) 23 U/L 12-42 eGFR Non- 124.2 > 60 eGFR 159.7 > 60 37 Lipid Profile 11/01/2011 [facility] Triglyceride 43 mg/dL 40- 200 (Trig/Chol/HDL) [address] [place] [address] [phone] Cholesterol 246 mg/dL High Less Than 200 38 High Density Lipoprotein 90 mg/dL High 40-60 39 Cholesterol/HDL Ratio 2.73 AVERAGE 1-4.44 Low Density Lipoprotein 147 mg/dL High Less Than 100 40 Comp Metabolic Panel 04/13/2011 [facility] Sodium 138 mmol/L 135-145 [address] [place] [address] [phone] Potassium 3.9 mmol/L 3.5-5.0 Chloride 101 mmol/L 101-111 Co2 (Carbon Dioxide) 29.0 mmol/L 22-32 Anion Gap 8.0 mmol/L 2-11 41 Glucose 95 mg/dL 70-100 BUN 11 mg/dL 6-24 Creatinine 0.5 mg/dL Low 0.50-1.40 One Over Creatinine 2.00 BUN/Creatinine Ratio 22.0 High 8-20 Calcium 8.8 mg/dL 8.1-9.9 Total Protein 6.2 GM/DL 6.2-8.1 Albumin 3.8 GM/DL 3.2-5.2 Globulin 2.4 GM/DL 2-4 Albumin/Globulin Ratio 1.6 1-3 Bilirubin Total 0.5 mg/dL 0.4-1.5 42 Alkaline Phosphatase 70 U/L 30-110 Alt (SGPT) 24 U/L 14-54 Ast (Sgot) 28 U/L 12-42 eGFR Non- 124.2 > 60 eGFR 159.7 > 60 43 CBC Auto Diff 04/13/2011 [facility] White Blood 5.2 CUMM 4.8- 10.[address] [place] [address] [phone] Red Cell Count 4.39 CUMM 4.2-5.4 Hemoglobin [...] Abs Basophils 0.1 0-0.2 Laboratory test 04/13/2011 [facility] Troponin-I 0.01 NG/ML 0 -0.[address] [place] [address] [phone] CKMB 04/13/2011 [facility] CKMB In NG/ML 4.3 NG/ML High 0.3- 4.[address] [place] [address] [phone] % CKMB 3 %MB 0-9 45 Laboratory test 04/13/2011 [facility] CPK (Creatine 134 U/L 0 -[address] Kinase) [place] [address] [phone] Laboratory test 03/19/2011 [facility] TSH 2.89 0.34-5.[address] MIU/[place] [address] [phone] Vitamin D 1,25 03/19/2011 [facility] Vitamin D, 1,25 65 pg/mL 18-78 46 And Vitamin D,[address] [place] [address] [phone] Vitamin D, 25 03/19/2011 [facility] 25-Hydroxy <4.0 () Hydroxy [address] Vitamin D2 ng/[place] [address] [phone] 25-Hydroxy Vitamin D3 37 ng/mL () 25-Hydroxy Vitamin D Total 37 ng/mL () 47 Surgical 07/11/2006 [facility] Surgical [address] Pathology <SEE NOTE> [place] [address] [phone] 1 Standard intensity warfarin therapeutic range: 2.0-3.0 High intensity warfarin therapeutic range: 2.5-3.5 2 Because ethnic data is not always readily [...] 15-29 5 Kidney failure <15 (or dialysis) 3 Desirable: <150 Borderline High: 150-199 High: 200-499 Very High: >500 4 Desirable: <200 Borderline High: 200-239 High: >239 5 Low: <40 Desirable: 40-60 High: >60 6 Desirable: <100 Near Optimal: 100-129 Borderline High: 130-159 High: 160-189 Very High: >189 7 Because ethnic data is not always [...] 5 Kidney failure <15 (or dialysis) 8 Total 25-Hydroxyvitamin D2 and D3 (25-OH-VitD) <10 ng/mL (severe deficiency) 10-19 ng/mL (mild to moderate deficiency) 20-50 ng/mL (optimum levels) 51-80 ng/mL (increased risk of hypercalciuria) >80 ng/mL (toxicity possible) 9 Troponin-I testing on Plasma Separator Tubes (PST) has a known false positive rate of 0.20-0.40%. All positive troponins reflex immediately to secondary confirmatory testing. Using the [employer] DxI 800 Access Immunoassay systems, the 99th percentile upper reference limit was demonstrated to be < 0.03 ng/mL. 10 Because ethnic data is not always [...] 5 Kidney failure <15 (or dialysis) 11 Program Review Director: [id number] Please note: The following may produce a false positive D Dimer test: - Rheumatoid factor greater than 60 IU/ml - Plasma hemoglobin greater than 0.05 gm/dl - Bilirubin greater than 50 mg/dl - Lipids greater than 1000 mg/dl - FDP greater than 20 ug/ml 13 Standard intensity warfarin therapeutic range: 2.0-3.0 High intensity warfarin therapeutic range: 2.5-3.5 14 [facility] Severe Sepsis and Septic Shock Management Bundle Measure requires all lactic acids initially measuring >2.0 mmol/L be repeated. 15 Because ethnic data is not always [...] 5 Kidney failure <15 (or dialysis) 16 Troponin-I testing on Plasma Separator Tubes (PST) has a known false positive rate of 0.20-0.40%. All positive troponins reflex immediate secondary confirmatory testing. 17 [facility] Severe Sepsis and Septic Shock Management Bundle Measure requires all lactic acids initially measuring >2.0 mmol/L be repeated. 18 Because ethnic data is not always [...] 5 Kidney failure <15 (or dialysis) 19 SEE RESULT BELOW Name: GASTONNABILA Izabel : [address]: Akosua Guzman MD Acct: [id number] Unit: [id number] AGE: 71 Location: [facility] Re11/25/17 SEX: F Status: REG REF SPEC: [id number] CUCA: 11/25/17-[address] [facility] DR: Akosua Guzman MD REQ: [id number] RECD: 11/25/17 STATUS: RAIZA GUDINO DR: Hugo Rogers FOUNDRY METALLURGIST _ SOURCE: URINE SPDESC: ORDERED: Urine Culture QUERIES: Urine Source: Clean Catch Procedure Result Reported Site Urine Culture Final 11/26/17- 1312 ML No Growth (<1,000 CFU/mL) * ML - Main Lab . END OF REPORT DEPARTMENT OF PATHOLOGY, [address] [place] [address] Kervin Read M.D. Director [facility] # [id number] 20 SEE RESULT BELOW Name: NABILA CLEARY : [address]: Jeni Gardner NP Acct: [id number] Unit: [id number] AGE: 71 Location: [facility] Re07/20/17 SEX: F Status: REG REF SPEC: [id number] CUCA: [address]: Jeni Gardner NP REQ: [id number] RECD: 07/20/17 STATUS: RAIZA GUDINO DR: Abida Wadsworth MD _ SOURCE: URINE [facility]: ORDERED: Urine Culture Procedure Result Reported Site Urine Culture Final 07/22/17 0854 ML Organism 1 ESCHERICHIA COLI [place] Count >100,000 (Many) CFU/ML 1. ESCHERICHIA COLI [...] . END OF REPORT DEPARTMENT OF PATHOLOGY, [address] [place] [address] Kervin Read M.D. Director NO # [id number] SEE RESULT BELOW Name: NABILA CLEARY : [address]: Adrian España MD Acct: [id number] Unit: [id number] AGE: 70 Location: [facility] Re10/01/16 SEX: F Status: REG REF SPEC: [id number] CUCA: 10/01/16-[address] [facility] [address]: Adrian España MD REQ: [id number] RECD: 10/01/16 STATUS: ZAFAR GUDINO DR: Dakota Gardner FOUNDRY METALLURGIST _ ORDERED: LEVEL 4/3 COMMENTS: [id number] FINAL DIAGNOSIS 1. Skin, left cheek superior, [...] performed at Main Lab DEPARTMENT OF PATHOLOGY, [address] [place] [address] Kervin Read M.D. Director [facility] # [id number] RUN DATE: 10/06/16 [facility] LAB LIVE PAGE 2 Patient: NABILA CLEARY [id number] (Continued) GROSS DESCRIPTION (Continued) Signed (signature on file) Fatuma Morrison MD 1331 END OF REPORT * ML=Testing performed at Main Lab DEPARTMENT OF PATHOLOGY, [address] [place] [address] Kervin Read M.D. Director [facility] # [id number] 23 Because ethnic data is not always [...] 5 Kidney failure <15 (or dialysis) 24 FASTING 25 Desirable <150 Borderline high 150-199 High 200-499 Very High >500 26 Desirable <200 Borderline high 200-239 High >239 27 Low <40 Desirable: 40-60 High: >60 28 Desirable <100 Near Optimal 100-129 Borderline high 130-159 High 160-189 Very High >189 29 Because ethnic data is not always [...] 5 Kidney failure <15 (or dialysis) 30 -- REFERENCE VALUE -- 25-HYDROXY D TOTAL (D2+D3) Optimum levels in the healthy population are 20-50, patients with bone disease may benefit from higher levels within this range. Test Performed by: [address] [address] [employer]: Brad Langley III, M.D. 31 Because ethnic data is not always [...] 5 Kidney failure <15 (or dialysis) 32 Because ethnic data is not always readily [...] 15-29 5 Kidney failure <15 (or dialysis) 33 Test Performed by: [place] [address] [employer]: Brad Langley III, M.D. 34 Interpretation: 10-24 (mild to moderate deficiency) -- REFERENCE VALUE -- 25-HYDROXY D TOTAL (D2+D3) Optimum levels in the normal population are 25-80 Test Performed by: [place] [address] [employer]: Brad Langley III, M.D. 35 Anion gap measurement may be of limited value in the presence of any alkalosis, especially in a combined acid base disorder. . 36 A metabolite of Naproxen, O-desmethylnaproxen, has been shown to interfere with the [place] method for measuring total bilirubin. Samples from patients who have taken Naproxen have shown spurious elevation in total bilirubin levels. 37 Because ethnic data is not always readily [...] 15-29 5 Kidney failure <15 (or dialysis) 38 CHOLESTEROL INTERPRETATION: Desirable: Less than 200 MG/DL Borderline-High Risk: 200-239 MG/DL High-Risk: 240 MG/DL and over 39 HDL INTERPRETATION: Undesirable: High Risk: Less than 40 MG/DL Desirable: Low Risk: Greater than 60 MG/DL 40 LDL INTERPRETATION: Low Risk Optimal Level: LDL Less than 100 MG/DL Near or Above Optimal: LDL 100-129 MG/DL Borderline High Risk: LDL 130-159 MG/DL High Risk: LDL 160-189 MG/DL Very High Risk: LDL Greater than 189 MG/DL 41 Anion gap measurement may be of limited value in the presence of any alkalosis, especially in a combined acid base disorder. . 42 A metabolite of Naproxen, O-desmethylnaproxen, has been shown to interfere with the Jendrassik-[place] method for measuring total bilirubin. Samples from patients who have taken Naproxen have shown spurious elevation in total bilirubin levels. 43 Because ethnic data is not always readily [...] 15-29 5 Kidney failure <15 (or dialysis) 44 New Reference Range and Interpretation effective 02/16/2002 TnI (ng/ml) INTERPRETATION Less Than 0.06 ng/mL NOT SUPPORTIVE OF DIAGNOSIS OF [place] 0.06 - 0.50 ng/ml INDETERMINATE: SUGGEST SERIAL STUDIES IF CLINICALLY INDICATED. Greater than 0.5 ng/mL CONSISTENT WITH DIAGNOSIS OF [place] . 45 INTERPRETATION %CK-MB < 5% NOT SUPPORTIVE OF DIAGNOSIS OF [place] 5 - <10% INDETERMINATE; SUGGEST SERIAL STUDIES IF CLINICALLY INDICATED 10% OR > CONSISTENT WITH DIAGNOSIS OF [place] . 46 Test Performed by: [facility] Dpt of Lab Med and Pathology [address] [place] [id number] [employer]: Brad Langley III, M.D. 47 -- REFERENCE VALUE -- 25-HYDROXY D TOTAL (D2+D3) Optimum levels in the normal population are 25-80 Test Performed by: [facility] Dpt of Lab Med and Pathology [address] [place] [address] [employer]: Brad Langley III, M.D. 48 ---- RUN DATE: 07/13/06 [facility] NMI LIVE PAGE 1 RUN TIME: 1521 Specimen Inquiry RUN USER: INTERFACE [id number] NABILA CLEARY 60/F <[facility] 07/12> ([id number]) Celestino Stephen MD -- Specimen: [id number] SOUT Spec Date: 07/11/[address]: Celestino Sierra MD Spec Type: SURGICAL P Received: 07/12/064659 Copies to: Maryjo Joshi MD SPECIMEN L3 -L4 DISC HISTORY PRE-OP DIAGNOSIS: L3-L4 disc protrusion GROSS DESCRIPTION The specimen is received in formalin labelled Nabila Cleary, L3-L4 Disc and consists of multiple fragments of hill-mixon fibrous soft tissue measuring 2.5 x 1.5 x 0.6 cm. in aggregate. Herbologist sections, one cassette. DIAGNOSIS Intervertebral disc, L3-4, discectomy - Intervertebral disc material. Signed Electronically by: KERVIN READ MD 07/13/06 -- -- DEPARTMENT OF PATHOLOGY, [address] [place] [address] [facility] Permit #[id number] [place] II, M.D. Director Alba Stuart irector -- Procedures Date Code Description Status 09/15/2018 25883 Admin Of Inj Completed 07/19/2018 07762 Polysomnography Sleep Staging 4+ Parameters Completed 03/22/2018 73531 EKG Tracing & Interpretation Completed 12/08/2017 86241 THR Total Hip Replacement Completed 12/08/2017 62072 THR Total Hip Replacement Completed 12/06/2017 36071 Diffusing Capacity Completed 12/06/2017 68303 Plethysmography Determination Lung Volumes & Per Completed Airway Resist 12/06/2017 33369 Pulmonary Function><Bronchodil Completed 11/27/2017 40852 Sleep Study Unattended,HRT Rate,Oxygen Sat,Resp Completed Effort/Airflow 11/23/2017 01302 EKG Tracing & Interpretation Completed 03/01/2017 15503 Admin Of Inj Completed 09/02/2016 75521 Admin Of Inj Completed 03/05/2016 29439 Chemotherpy Admin Subcutaneous/Im Non-Hormonal Completed Anti-Neoplastic 08/19/2015 57266291 Mammogram Completed 08/19/2015 155026088 Bone Mineral Density Test Completed 10/10/2013 94708 EKG Tracing & Interpretation Completed 08/22/2013 56179061 Mammogram Completed 11/11/2011 85417557 Colonoscopy Completed 08/10/2011 24538 EKG Tracing & Interpretation Completed 04/13/2011 11680 Noninvasive Ear Or Pulse Oximetry For Oxygen Completed Saturation 04/13/2011 98679 EKG Tracing & Interpretation Completed 03/18/2011 439624156 Bone Mineral Density Test Completed 02/18/2011 27096811 Mammogram Completed 02/10/2011 00486 Noninvasive Ear Or Pulse Oximetry For Oxygen Completed Saturation 02/03/2011 37877 Noninvasive Ear Or Pulse Oximetry For Oxygen Completed Saturation 12/10/2010 41501 Noninvasive Ear Or Pulse Oximetry For Oxygen Completed Saturation 12/03/2010 88425 Inhalation TX For Acute Airway Obstruction Completed W/Nebulizer/Inhaler 12/03/2010 25175 Noninvasive Ear Or Pulse Oximetry For Oxygen Completed Saturation 03/25/2010 35969 EKG Tracing & Interpretation Completed 09/24/2008 647787126 Bone Mineral Density Test Completed 09/12/2008 03421 EKG Tracing & Interpretation Completed 04/26/2008 73824 Noninvasive Ear Or Pulse Oximetry For Oxygen Completed Saturation 04/26/2008 46637 Noninvasive Ear Or Pulse Oximetry For Oxygen Completed Saturation 04/26/2008 33503 Inhalation TX For Acute Airway Obstruction Completed W/Nebulizer/Inhaler 09/06/2007 76895140 Mammogram Completed 07/13/2006 97125 EKG Tracing & Interpretation Completed 07/13/2006 11804 EKG Tracing & Interpretation Completed 07/11/2006 01244 Laminotomy W/Decomp NRV RT,One Interspace,Lumbar Completed 06/23/2006 49259 EKG Tracing & Interpretation Completed 04/29/2006 46059250 Mammogram Completed Encounters Type Date Location Provider Dx Diagnosis Office Visit 09/15/2018 [facility] OLENA Rogers J44.9 Chronic obstructive 4:00p Medicine - C[facility] pulmonary disease, unspecified G35 Multiple sclerosis Office Visit 09/11/2018 [facility] Marilu Nash J96.01 Acute respiratory 8:57a Assjcarlos cox M.D. failure with Hospitalists hypoxia J44.1 Chronic obstructive pulmonary disease w (acute) exacerbation Office Visit 09/10/2018 [facility] Marilu Arnoldhn, J96.01 Acute respiratory 8:56a jcarlos Gray M.D. failure with Hospitalists hypoxia J44.1 Chronic obstructive pulmonary disease w (acute) exacerbation G35 Multiple sclerosis Office Visit 09/09/2018 [facility] Shelly J44.1 Chronic 8:55a Assjcarlos cox NP obstructive Hospitalists pulmonary disease w (acute) exacerbation G35 Multiple sclerosis Office Visit 08/31/2018 1:00p Pulmonology And Karli Marinelli44.9 Chronic Sleep Services Of OLENA Brito obstructive Parking Supervisor pulmonary disease, unspecified Office Visit 08/22/2018 3:20p [facility] Internal vYes Rogers44.9 Chronic Medicine - Ccmob N.P. obstructive pulmonary disease, unspecified R10.31 Right lower quadrant pain R60.0 Localized edema Office Visit 08/18/2018 1:15p Orthopedic Services Akosua Guzman, M25.552 Pain in left Of C.M.A. M.D. hip Z96.642 Presence of left artificial hip joint M79.652 Pain in left thigh M62.81 Muscle weakness (generalized) M16.12 Unilateral primary osteoarthritis, left hip Office Visit 08/16/2018 2:15p [facility] Neurologic Garrison Perez G35 Multiple Services Of Oj cMkeon M.D. sclerosis Z79.899 Other care home (current) drug therapy Office Visit 07/26/2018 11:00a Pulmonology And Sleep Laquita Lowe, R06.83 Snoring Services Of [facility] MD Marinelli44.9 Chronic obstructive pulmonary disease, unspecified Office Visit 06/28/2018 8:57a [facility] Delia J96.01 Acute respiratory Assoc,jcarlos Brooks M.D. failure with Hospitalists hypoxia J44.1 Chronic obstructive pulmonary disease w (acute) exacerbation Office Visit 06/27/2018 8:56a [facility] Delia J96.01 Acute respiratory Assoc,jcarlos Brooks M.D. failure with Hospitalists hypoxia J44.1 Chronic obstructive pulmonary disease w (acute) exacerbation Office Visit 06/26/2018 [facility] Lisbet J44.1 Chronic 8:56a Assocjcarlos MD obstructive Hospitalists pulmonary disease w (acute) exacerbation Office Visit 06/19/2018 [facility] Garrison S. 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 breath I49.3 Ventricular premature depolarization Z87.891 Personal history of nicotine dependence J44.1 Chronic obstructive pulmonary disease w (acute) exacerbation Office Visit 12/26/2017 [facility] Internal Jeni Gardner, I10 Essential 2:40p Medicine - Ccmob N.P. (primary) hypertension Office Visit 12/10/2017 [facility] Grzegorz West MD J44.9 Chronic 10:37a Assoc,pc obstructive Hospitalists pulmonary disease, unspecified E78.5 Hyperlipidemia, unspecified G35 Multiple sclerosis Office Visit 12/09/2017 10:37a [facility] Darlene J44.9 Chronic Assoc, Emory Marks obstructive Hospitalists FOUNDRY METALLURGIST pulmonary disease, unspecified G35 Multiple sclerosis E78.5 Hyperlipidemia, unspecified Office Visit 12/08/2017 [facility] Bahgat J44.1 Chronic 10:36a Assoc,pc PENELOPE Wilson obstructive Hospitalists pulmonary disease w (acute) exacerbation E78.5 Hyperlipidemia, unspecified G35 Multiple sclerosis Office Visit 11/23/2017 2:00p [facility] Internal Hugo Rogers, Z01.818 Encounter for other Medicine - FOUNDRY METALLURGIST preprocedural Ccmob examination M16.12 Unilateral primary osteoarthritis, left hip J44.9 Chronic obstructive pulmonary disease, unspecified G35 Multiple sclerosis Office Visit 11/14/2017 Pulmonology And Laquita Z01.811 Encounter for 9:30a Sleep Services Of MD Mynor preprocedural [facility] respiratory examination M16.11 Unilateral primary osteoarthritis, right [...] osteoarthritis, left hip Office Visit 10/21/2017 4:00p [facility] Internal Jeni Gardner, H81.10 Benign paroxysmal Medicine - N.P. vertigo, Ccmob unspecified ear M25.552 Pain in left hip J44.9 Chronic obstructive pulmonary disease, unspecified H61.21 Impacted cerumen, right ear Office Visit 03/16/2017 10:30a Neurohospitalist Garrison Kuo [facility] Alba Mckeon sclerosis Z79.899 Other care home (current) drug therapy Office Visit 01/07/2017 Da [facility] Internal Shane Andrea R60.0 Localized 11:00a Medicine-Elayne Wing M.D. edema Office Visit 12/28/2016 [facility] Internal Medicine Deuce Ngo M54.31 Sciatica, 1:00p [facility] Varn, N.P. right side J44.9 Chronic obstructive pulmonary disease, unspecified Office Visit 08/04/2016 2:20p [facility] Internal Jeni Gardner M79.661 Pain in right Medicine - Ccmob N.P. lower leg Z86.718 Personal history of other venous thrombosis and embolism Office Visit 07/22/2016 10:40a [facility] Internal Jeni Gardner M54.2 Cervicalgia Medicine - Ccmob N.P. Office Visit 07/07/2016 10:30a Orthopedic Akosuaalma Guzman, M25.552 Pain in left hip Services Of Alba C.M.A. M16.12 Unilateral primary osteoarthritis, left hip Office Visit 06/22/2016 10:00a [facility] Internal Jeni Gardner, S39.013A [facility] muscle, fascia and tendon of pelvis, init encntr R10.32 Left lower quadrant pain Office Visit 04/16/2016 2:40p [facility] Internal Hugo Sue, J06.9 Acute upper [facility] FOUNDRY METALLURGIST respiratory infection, unspecified J44.9 Chronic obstructive pulmonary disease, unspecified Office Visit 03/02/2016 Neurohospitalist Noemi Damico, G35 Multiple 9:30a Clinic FOUNDRY METALLURGIST sclerosis J44.9 Chronic obstructive pulmonary disease, unspecified S39.013A Strain of muscle, fascia and tendon of pelvis, init encntr Z79.899 Other care home (current) drug therapy Office Visit 02/09/2016 11:20a [facility] Internal Jeni Gardner, Z23 Encounter for Medicine - [facility] N.P. immunization S39.013A Strain of muscle, fascia and tendon of pelvis, init encntr M81.0 Age-related osteoporosis w/o current pathological fracture Office Visit 10/24/2015 1:20p [facility] Internal Jeni Gardner, M81.0 Age- related Medicine - N.P. osteoporosis w/o Ccmob current pathological fracture Office Visit 08/12/2015 10:40a [facility] Internal Jeni Gardner, Z00.00 Encntr for general [...] Encounter for immunization Office Visit 04/30/2015 4:20p [facility] Internal Hugo Rogers, J20.9 Acute bronchitis, [facility] FOUNDRY METALLURGIST unspecified J44.1 Chronic obstructive pulmonary disease w (acute) exacerbation Office Visit 11/26/2014 10:00a [facility] Garrison S. 340 Multiple Services Of Oj Mckeon M.D. Sclerosis 780.79 Malaise And Fatigue Other Office Visit 06/07/2014 10:00a [facility] Internal Jeni Gardner, 496 COPD Airway Medicine - Ccmob N.P. Obstruction Chronic Not Class Elsewhere 724.5 Backache Unspec 733.00 Osteoporosis Unspec 720.2 Sacroiliitis Not Elsewhere Classified Office Visit 06/05/2014 2:20p [facility] Internal Jeni Gardner, 724.5 Backache Unspec Medicine - Ccmob N.P. 720.2 Sacroiliitis Not Elsewhere Classified 728.85 Spasm Muscle Office Visit 04/10/2014 11:20a [facility] Internal Jeni Gardner, 496 COPD Airway Medicine - N.P. Obstruction Chronic Ccmob Not Class Elsewhere Office Visit 03/27/2014 9:00a [facility] Internal Jeni Kendra, 496 COPD Airway Medicine - N.P. Obstruction Chronic Ccmob Not Class Elsewhere Office Visit 03/21/2014 11:40a [facility] Internal Jeni Kendra, 496 COPD Airway Medicine - N.P. Obstruction Chronic Ccmob Not Class Elsewhere Office Visit 11/27/2013 9:00a [facility] Internal Jeni Varn, 272.4 Hyperlipidemia Other Medicine - N.P. Unspec Ccmob 564.00 Constipation Unspecified Office Visit 10/23/2013 2:15p [facility] Garrison SWendy 340 Multiple Services Of [facility] Alba Mckeon Sclerosis Office Visit 10/10/2013 2:00p [facility] Internal Maryjo Joshi, V70.0 Examination [facility] Willis, FACP General Medical Routine AT Health Care Facility V70.0 Examination General Medical Routine AT Health Care Facility V76.10 Screening For Malignant Neoplasm Breast 340 Multiple Sclerosis 496 COPD Airway Obstruction Chronic Not Class Elsewhere 530.81 Esophageal Reflux 300.00 Anxiety State Unspec 564.1 Irritable Bowel Syndrome 272.0 Hypercholesterolemia Pure 575.8 Gallbladder Disorders Other Spec Office Visit 09/04/2013 11:20a [facility] Internal Maryjo Joshi, 496 COPD Airway Medicine - Charles MWaldemar, FACP Obstruction Chronic Not Class Elsewhere 530.81 Esophageal Reflux 575.8 Gallbladder Disorders Other Spec Office Visit 08/16/2013 3:40p [facility] Internal Maryjo Joshi, 496 COPD Airway [facility] M.Viri, FACP Obstruction Chronic Not Class Elsewhere 530.81 Esophageal Reflux Office Visit 04/19/2013 4:00p [facility] Internal Maryjo Joshi, 466.0 Bronchitis Acute Medicine - Reginoob M.Viri, FACP Office Visit 02/22/2013 9:00a [facility] Internal Mrayjo Joshi, 564.1 Irritable Bowel Medicine - [facility] MWaldemar, FACP Syndrome 496 COPD Airway Obstruction Chronic Not Class Elsewhere 300.00 Anxiety State Unspec 340 Multiple Sclerosis Office Visit 11/06/2012 11:20a [facility] Internal Maryjo Joshi, 715.14 Osteoarthrosis Medicine - MWaldemar, FACP Localized Prim Hand Ccmob 780.79 Malaise And Fatigue Other Office Visit 10/16/2012 11:20a [facility] Internal Maryjo Madelyn, 780.79 Malaise And Medicine - Charles Willis, FACP Fatigue Other 785.6 Lymph Nodes Enlargement Office Visit 10/04/2012 2:45p [facility] Neurologic Garrison Perez 340 Multiple Services Of [facility] Alba Mckeon Sclerosis Office Visit 05/01/2012 9:40a [facility] Internal Jeni Gardner, 340 Multiple Medicine - Ccmob N.P. Sclerosis 380.4 Impacted Cerumen 466.0 Bronchitis Acute Office Visit 04/27/2012 10:40a [facility] Internal Jeni Varn, 466.0 Bronchitis Acute [facility] - [facility] N.[facility]. 380.4 Impacted Cerumen Office Visit 03/03/2012 3:40p [facility] Internal Jeni Varn, 466.0 Bronchitis Acute Medicine - Ccmob N.P. Office Visit 11/08/2011 8:40a [facility] Internal Jeni Gardner, 268.9 Vitamin D [facility] - [facility] Deficiency Unspec 272.4 Hyperlipidemia Other Unspec 305.1 Tobacco Use Disorder Office Visit 09/06/2011 4:20p [facility] Internal Abida 528.6 Oral Soft Tissue Medicine - Alba [facility] Exlud Ginviva & Ccmob Tongue Leukoplakia Mucosa 923.10 Contusion Forearm Office Visit 08/10/2011 2:20p [facility] Internal Maryjo Joshi, V70.0 Examination Medicine - Charles Willis, FACP General Medical Routine AT Health Care Facility V76.10 Screening For Malignant Neoplasm Breast 496 COPD Airway Obstruction Chronic Not Class Elsewhere 733.90 Bone & Cartilage Disorder Unspec 305.1 Tobacco Use Disorder 401.1 Hypertension Benign 780.52 Insomnia Unspecified v72.60 Laboratory Examination, Unspecified Office Visit 04/15/2011 DO Not Use Jeni Gardner, 723.1 Cervicalgia 10:00a [facility] N.P. Office Visit 04/13/2011 DO Not Use Maryjo Joshi, 786.59 Pain Chest Other 10:00a Gavino Willis, FACP 723.1 Cervicalgia Office Visit 03/15/2011 10:00a DO Not Use Maryjolisa Joshi, 596.9 Bladder Gavino Willis, FACP Disorders Unspec 300.00 Anxiety State Unspec 305.1 Tobacco Use Disorder 733.90 Bone & Cartilage Disorder Unspec Office Visit 02/10/2011 2:20p DO Not Use Maryjolisa Joshi, Presley6 COPD Airway Gavino Willis, FACP Obstruction Chronic Not Class Elsewhere 305.1 Tobacco Use Disorder 300.00 Anxiety State Unspec 780.79 Malaise And Fatigue Other V76.10 Screening For Malignant Neoplasm Breast Office Visit 02/03/2011 2:00p DO Not Use Maryjo Madelyn, 496 COPD Airway Gavino Willis, FACP Obstruction Chronic Not Class Elsewhere v04.81 Need For Prophylactic Vaccination & Inoculation/Influenza Office Visit 12/28/2010 10:00a DO Not Use Maryjolisa Joshi, Presley6 COPD Airway Gavino Willis, FACP Obstruction Chronic Not Class Elsewhere 300.00 Anxiety State Unspec Office Visit 12/10/2010 3:40p DO Not Use Maryjolisa Joshi, Presley6 COPD Airway Gavino Willis, FACP Obstruction Chronic Not Class Elsewhere Office Visit 12/03/2010 3:00p DO Not Use Maryjo Madelyn, Presley6 COPD Airway Gavino Willis, FACP Obstruction Chronic [...] Use Jeni Varn, 466.0 Bronchitis Acute 3:45p Gavino N.P. Office Visit 04/24/2009 DO Not Use [...] Use Jeni Roycen, 461.9 Sinusitis Acute 2:30p Parking Supervisor-Kite N.P. Unspec Office Visit 10/02/2008 DO Not Use Maryjo Madelyn, 496 COPD Airway 2:45p Gavino Willis, FACP Obstruction Chronic Not Class Elsewhere 340 Multiple Sclerosis 780.79 Malaise And Fatigue Other Office Visit 09/12/2008 3:00p DO Not Use Maryjolisa Joshi, V72.31 Routine Cushion Cover Inspector Gavino Willis, FACP Examination 340 Multiple Sclerosis 496 COPD Airway Obstruction Chronic Not Class Elsewhere 733.00 Osteoporosis Unspec Office Visit 06/24/2008 DO Not Use Jeni 727.04 Tenosynovitis 2:00p Parking Supervisor-Kite Varn, N.P. Radial Styloid 719.41 Pain Joint Shoulder Region Office Visit 06/19/2008 DO Not Use Jeni Varn, 466.0 Bronchitis Acute 4:00p Parking Supervisor-Kite N.P. Office Visit 04/26/2008 DO Not Use Maryjolisa Joshi, 496 COPD Airway 3:45p Gavino Willis, FACP Obstruction Chronic Not Class Elsewhere 466.0 Bronchitis Acute Office Visit 04/15/2008 DO Not Use Jeni Varn, 611.72 Lump Or Mass 3:30p Parking Supervisor-Kite N.P. 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 Infection Site Not Spec Office Visit 03/28/2007 Neurosurgery Celestino Wendy 724.2 Lumbago 3:30p Services Of Oj Allen M.D. Office Visit 02/07/2007 DO Not Use Jeni Varn, 564.00 Constipation 11:45a Oj-Deysi N.P. Unspecified 465.9 [...] Not Use Maryjo Madelyn, 340 Multiple Gavino Rodriguez.Viri, FACP Sclerosis 733.00 Osteoporosis Unspec Office Visit 07/21/2006 3:00p DO Not Use Maryjolisa Joshi, 340 Multiple Gavino Willis, FACP Sclerosis 724.2 Lumbago Office Visit 07/08/2006 Horseliban RodriguezWendy 722.10 Intervertebral Disc 11:00a Progressive Alba Allen Displacement Lumbar Neurosurgery W/O Myelopathy Office Visit 07/04/2006 DO Not Use Jeni 720.2 Sacroiliitis Not 4:00p [facility] Elsewhere Classified 719.45 Pain Joint Pelvic Region & Thigh 340 Multiple Sclerosis 564.00 Constipation Unspecified Office Visit 06/23/2006 2:30p DO Not Use Maryjolisa Joshi, V70.0 Examination [facility], FACP General Medical Routine [facility] 340 Multiple Sclerosis V06.1 Ydunhprbke-Wovgxye-Tcojoalh Combined (DTaP) Office Visit 12/30/2005 11:15a DO Not Use Maryjo Madelyn, 610.0 Cyst Breast Gavino Willis, FACP Solitary 340 Multiple Sclerosis 272.4 Hyperlipidemia Other Unspec Plan of Treatment Future Appointment(s):11/21/2018 1:45 pm - Garrison Mckeon M.D. at [facility]12/11/2018 11:30 am - Laquita Lowe MD at [facility]09/27/2018 - Shane Wing M.D.J44.1 Chronic obstructive pulmonary disease with (acute) exacerbatNew Medication: Prednisone 20 mg - 1 by mouth every day; take 2 a day for the first 3 daysComments:Severe COPD with increased sx over the past 2 days. Resume steroid Rx and increase nebulizers to 4 times a day with Ventolin inhaler in between and additionally as needed. ER jesus advised promptly ifany increased shortness of breath sx noted
--- OUTSIDE RECORDS SUMMARY | 2018-11-20 19:08 | XMS REPORT | Continuity of Care Document ---
:1945 External Reference #:[id number] Author Name Ivone Bell Care Team Providers Name Role Phone Abida Wadsworth MD Primary Care Physician Unavailable Payers Date Identification Numbers Payment Provider Subscriber Effective: 2012 Policy Number: [id number] Medicare Nabila Cleary PayID: [id number] [address] [place] [address] Effective: 2016 Policy Number: [id number] [employer] Nabila Cleary Expires: 2017 PayID: [id number] [address] [address] Effective: 2012 Policy Number: [id number] [employer] Nabila Cleary Expires: 2016 PayID: [id number] [address] [address] Effective: 2009 Policy Number: [id number] BS Of [facility] Nabila Cleary Expires: 2011 Group Number: [id number] [address] PayID: [id number] [place] [address] Policy Number: [id number] [facility] Nabila Cleary PayID: [id number] [address] [place] [address] Problems Active Problems Provider Date Chronic obstructive [...] 1 dog in another visits apartment 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 [id number] Tablets Anoro Ellipta 1 inhalation daily 60units J44.9 Karli 08/31/2018 OLENA Brito 62.5-25mcg/Inh Aerosol Baclofen 1/2 po qhs prn 45tabs Garrison Perez 06/19/2018 10mg ruben Mckeon M.D. Tablets Nebulizer use three times a 1units Jeni [...] ER 24HR maximum daily dose of 1 Ipratropium [place] use in nebulizer 60units J44.9 Jeni Gardner, 2010 up to four times a N.P. 0.02% Solution day as needed Albuterol Sulfate 1 vial via 60units J44.9 Jeni Gardner, 12/10/2010 nebulizer up to 4 N.P. (2.5mg/3ML) 0.083% times a day as Nebulizer needed Vitamin C 1 po qd Unknown 500mg Chewtabs Fish Oil 1 po qd Unknown 1200mg Capsules Lyrica take 1 tablet by 90caps Jeni Gardner, 100mg mouth 3 times N.P. Capsules daily. max/day=3 mdd 3 Diltiazem HCL 1 by mouth every Unknown 120mg day Tablets Clonazepam take 1/2 bid prn Unknown 0.5mg Tablets Aspirin 81 1 by mouth every Unknown 81mg day Tablets DR Prednisone 2 tablets for 4 Unknown 20mg days and then 1 Tablets tablet for 4 days and then stop Combivent Respimat inhale 1 puff by Unknown mouth 4-6 times 20-100mcg/Act daily as needed Aerosol History Medications Prednisone 1 by mouth every 20tabs J44.1 Shane Andrea 09/27/2018 - 20mg day; take 2 a day Alba Wing 10/04/2018 Tablets for the first 3 days Prednisone 4 tab daily for 1 49tabs J44.9 Karli 07/26/2018 - 5mg week, then 2 tab OLENA Brito 08/15/2018 Tablets daily for 1 week, then 1 tab daily for 1 week Prednisone 4 tablets by 40tabs R06.02 Jeni Gardner, 03/22/2018 - 10mg mouth for 4 days N.P. 04/07/2018 Tablets 3 tablets by mouth for 4 days 2 tablets by mouth for 4 days 1 tablet by mouth for 4 days Azithromycin two tabs day one, 6tabs R06.02 Jeni Gardner, 03/22/2018 - 250mg one daily till N.P. 04/01/2018 Tablets gone Hydrocodone-Acetamin 1 tab by mouth 10tabs Akosua Guzman, 11/05/2017 - ophen twice a day as M.D. 06/12/2018 5-325mg Tablets needed for pain Tramadol HCL 1 tab twice a day 30tabs Akosua Guzman, 11/04/2017 - 50mg as needed for M.D. 06/12/2018 Tablets pain Walker front wheeled 1units Akosua Guzman, 10/31/2017 [facility] 11/06/2018 severe b/L hip OA Advair Diskus inhale one dose 60units Jeni [...] 12/28/2016 Meloxicam 1 by mouth every 30tabs Jnei Gardner, 07/21/2016 - 15mg day N.P. 08/04/2016 Tablets Naproxen 1 tablet with 30tabs M25.552 Akosua Guzman, 07/07/2016 - 500mg food by mouth Alba 07/21/2016 Tablets twice a day Azithromycin 2 [...] days Combivent Respimat inhale 2 puffs by 4unkiko Gardner, 12/12/2014 - mouth four times N.P. 09/18/2018 20-100mcg/Act a day Aerosol Tramadol HCL 1 tablet three to 30tabs 724.5 Jeni Gardner, 06/05/2014 - 50mg four times daily N.P. 06/19/2014 Tablets as needed Spacer Use this with 2sue 496 Jeni Gardner, 03/27/2014 - your inhalers [...] needed Provigil 1 tablet twice 60tabs Garrison SWendy 05/26/2012 - 200mg daily mdd 2 tabs [...] Ergocalciferol one po once 8caps 268.9 Maryjo Goelon, 11/08/2011 - weekly M.D., FACP 01/07/2012 [id number] Capsules Advair Diskus inhale 1 dose by 180units Jeni Gardner, 06/16/2011 - mouth twice a day N.P. 10/21/2017 250-50mcg/Dose Aerosol Estrace 1 application two 42.500gm 596.9 Maryjo Joshi, 03/15/2011 - 0.1mg/GM times weekly [facility]., [facility] 04/27/2012 Cream Levofloxacin 1 po qd 7tabs 496 Maryjo Joshi, 02/03/2011 - 500mg M.D., [facility] 04/15/2011 Tablets Advair Diskus 1 puff bid 1units Maryjo Joshi, 02/03/2011 - M.D., [facility] 06/16/2011 500-50mcg/Dose Aerosol Alprazolam 1 tab three times 30tabs 300.00 Maryjo Joshi, 12/28/2010 - 0.25mg daily as needed M.D., [facility] 08/10/2011 Tablets Prednisone 1 tablet by mouth 15tabs 496 Maryjo Joshi, 12/10/2010 - 10mg every morning for M.D., [facility] 02/03/2011 Tablets one week - then 1/2 tablet by mouth for one week - then 1/4 tablet by mouth for one week Robitussin ac 1-2 tsp at 4Oz 496 Maryjo Joshi, 12/10/2010 - bedtime as needed M.D., [facility] 08/09/2011 Solution Wellbutrin SR 1 by mouth every 30tabs 496 Maryjo Joshi, 12/10/2010 - 100mg Am M.D., [facility] 02/03/2011 Tablets ER 12HR Nebulizer use as directed J44.9 Maryjo Joshi, 12/10/2010 - M.D., [facility] 07/18/2017 Prednisone 4 tabs po qd x 4d 50tabs 496 Maryjo Joshi, 12/03/2010 - 5mg then 3 tabs po qd M.D., [facility] 12/10/2010 Tablets x 3d then 2 tabs po qd x 2d then 1 tab po qd x 1 d then 1/2 tab po qd x 2d. Levofloxacin 1 tab by mouth 7tabs 496 Maryjo Joshi, 12/03/2010 - 500mg every day M.D., [facility] 12/10/2010 Tablets Combivent inhale 2 puffs by 14.7unkiko Gardner, 09/14/2010 - mouth tid N.P. 12/12/2014 18-103mcg/Act Aerosol Aspirin 1 by mouth once Abida 03/25/2010 - 81mg Tablets daily Alba Wadsworth 12/26/2017 Chantix use as directed 1units Maryjo Joshi, 12/02/2009 - Start Pack Alba, FACP 03/25/2010 Effexor XR 1 tablet daily 90caps Maryjo Joshi, 12/01/2009 - 150mg Caps Alba, FACP 02/22/2011 ER 24HR Soma 1 tab by mouth q6 90tabs Garrison Perez 12/01/2009 - 350mg Tablets hours as needed Alba Mckeon 06/19/2018 mdd 4 Azithromycin one daily Unknown - 250mg 11/06/2018 Tablets Guaifenesin 3 by mouth every Unknown - 400mg 2 hours as needed 11/06/2018 Tablets Prednisone Tapered dose Unknown - 20mg 10/19/2018 Tablets Oxycodone-Acetaminop Herminiopurgcristian, - hen MD Suleiman 06/12/2018 5-325mg Tablets [...] 4tabs Maryjo Joshi, - mouth every week M.Viri, [facility] 08/10/2011 70mg Tabs Azithromycin 2 tabs po day 1 6units Maryjo Joshi, - 250mg then 1 po qd til Alba, FACP 12/01/2009 done Cheratussin ac 1-2 tsp po qhs 118ml Maryjo Joshi, - prn M.D., FACP 12/01/2009 100-10mg/5ML Combivent 1 Inhalation MadelynMaryjo lea, - Twice A Day as 09/14/2010 103-18mcg/Act [...] Code Status Date Vaccine Reaction Lot # [id number] Given 10/18/2018 Tetanus And Diptheria (Td) no Immediate [id number] For Adult Use Preservative reaction. Free 54815 Given 02/09/2016 Influenza Virus Vaccine, no reaction noted [id number] Quadrivalent, Split, .... hh Preservative Free 05064 Given 08/12/2015 Pneumococcal Conjugate [id number] Vaccine 13 Valent For Intramuscular Use Q2039 Given 03/05/2015 Flu Vaccine NOS 62435 Given 02/26/2014 Fluzone High Dose Q2037 Given 04/18/2012 Fluvirin Im 3Yrs And Older Q2037 Given 04/18/2012 Fluvirin Im 3Yrs And Older [id number] 61830 Given 04/18/2012 Zoster (Zostavax) [id number] 93700 Given 02/03/2011 Influenza Virus 3Yrs & Over [id number] 04037 Given 03/20/2010 Influenza Virus 3Yrs & Over [id number] 04991 Given 04/24/2009 Administration Swine Flu Shot 13918 Given 04/24/2009 Influenza Virus Vaccine, Pandemic Formulation 46450 Given 02/24/2009 Influenza Virus 3Yrs & Over 59288 Given 02/16/2008 Pneumonia Vaccine 52661 Given 02/16/2008 Pneumonia Vaccine 81738 Given 02/16/2008 Influenza Virus 3Yrs & Over 45611 Given 04/18/2007 Influenza Virus 3Yrs & Over 32653 Given 06/23/2006 Tdap - Tetanus/Diptheria/Acellular Pertussis 58326 Given 06/23/2006 Tdap - Tetanus/Diptheria/Acellular Pertussis 05141 Given 04/04/2006 Influenza Virus 3Yrs & Over Vital Signs Date Vital Result Comment 11/06/2018 4:14pm Height 67 inches 5'7" Weight 126.00 lb Heart Rate 83 /min BP Systolic 144 mmHg BP Diastolic 81 mmHg Body Temperature 97.7 F O2 % BldC Oximetry 93 % BMI (Body Mass Index) 19.7 kg/m2 10/18/2018 2:37pm Height 67 inches 5'7" Weight [...] Diastolic 73 mmHg O2 % BldC Oximetry 60671 % BMI (Body Mass Index) 18.2 kg/m2 [...] % BldC Oximetry 92 % 92 [facility] BMI (Body Mass Index) 17.7 kg/m2 04/23/2010 3:01pm Weight 123.00 lb Heart Rate 80 /min BP Systolic 120 mmHg BP Diastolic 78 mmHg 03/25/2010 9:19am Weight 119.00 lb Heart Rate 92 /min BP Systolic 140 mmHg BP Diastolic 78 mmHg O2 % BldC Oximetry 96 % Results Test Date Facility Test Result H/L Range Note CBC Auto Diff 10/27/2018 [facility] White Blood 7.6 10^3/uL N 3.5-10.[address] [place] [address] [phone] Red Blood Count 4.94 10^6/uL High 3.70-4.87 [...] Red Blood Cells % 0.0 Inr/Protime 10/27/2018 [facility] Inr 0.92 N 0.82-1.[address] [place] [address] [phone] Laboratory test 10/27/2018 [facility] Partial 30.2 seconds N 26.0-38.[address] [place] [address] PTT [phone] Comp Metabolic 10/27/2018 [facility] Sodium 142 mmol/L N 135- [address] [place] [address] [phone] Potassium 4.0 mmol/L N 3.5-5.0 Chloride 105 [...] Egfr 117.0 >60 2 Laboratory test 10/27/2018 [facility] C Reactive 2.20 mg/L N < 8.[address] [place] [address] [phone] B-Type Natriuretic Peptide BNP 48 pg/mL <=100 Lipid Profile 10/10/2018 [facility] Triglycerides 78 mg/dL 3 (Trig/Chol/HDL) [address] [place] [address] [phone] Cholesterol 294 mg/dL 4 HDL Cholesterol 96.7 mg/dL 5 LDL Cholesterol 182 mg/dL 6 Comp Metabolic Panel 10/10/2018 [facility] Sodium 140 mmol/L N 135-[address] [place] [address] [phone] Potassium 4.1 mmol/L N 3.5-5.0 Chloride 104 [...] Egfr 110.7 >60 7 Laboratory test 10/10/2018 [facility] Vitamin D 15.6 ng/mL Low 20-50 [address] Total 25(Oh) [place] [address] [phone] CBC Auto Diff 10/10/2018 [facility] White Blood 10.5 N 3.5- 10.[address] Count 10^3/[place] [address] [phone] Red Blood Count 4.96 10^6/uL High 3.70-4.87 [...] % Nucleated Red Blood Cells % 0.0 Influenza A & B 09/09/2018 [facility] Influenza A NEGATIVE Negative [address] [place] [address] [phone] Influenza B Molecular NEGATIVE Negative Laboratory test 09/09/2018 [facility] Creatine 51 U/L N 10- [address] Kinase(CK) [place] [address] [phone] C Reactive Protein < 1.00 mg/L N <8.01 B-Type Natriuretic Peptide BNP 42 pg/mL <=100 Comp Metabolic Panel 09/09/2018 [facility] Sodium 140 mmol/L N 135-[address] [place] [address] [phone] Potassium 4.5 mmol/L N 3.5-5.0 Chloride 104 [...] Non- 96.7 >60 Egfr 117.0 >60 10 CKMB 09/09/2018 [facility] CKMB ng/mL 3.0 ng/mL N 0.6-6.[address] [place] [address] [phone] Laboratory test 09/09/2018 [facility] Troponin-I 0.01 ng/mL < 0.04 [address] (TnI) [place] [address] [phone] CBC Auto Diff 09/09/2018 [facility] White Blood 7.8 10^3/uL N 3.5-10.[address] [place] [address] [phone] Red Blood Count 5.26 10^6/uL High 3.70-4.87 [...] Blood Cells % 0.2 Laboratory test 09/09/2018 [facility] Partial 27.4 seconds N 26.0-36.[address] [place] [place] [address] PTT [phone] D Dimer Quantitative < 200 ng/mL N Less Than 230 12 Inr/Protime 09/09/2018 [facility] Inr 0.94 N 0.82-1.[address] [place] [address] [phone] Laboratory test 09/09/2018 [facility] Lactic Acid 1.1 mmol/L N 0.5-2.[address] [place] [address] [phone] Laboratory test 06/25/2018 [facility] B-Type 15 pg/mL <=[address] [place] [address] Peptide BNP [phone] Inr/Protime 06/25/2018 [facility] Inr 0.86 N 0.77-1.[address] [place] [address] [phone] Laboratory test 06/25/2018 [facility] Partial Thrombo 27.9 N 26.0-36.[address] [address] [phone] Comp Metabolic 06/25/2018 [facility] Sodium 139 mmol/L N 135- [address] [place] [address] [phone] Potassium 4.2 mmol/L N 3.5-5.0 Chloride 102 [...] Egfr 105.0 >60 15 Laboratory test 06/25/2018 [facility] C Reactive < 1.00 mg/L N <8.[address] [place] [address] [phone] Troponin-I (TnI) 0.00 ng/mL <0.04 16 Lactic Acid 1.6 mmol/L N 0.5-2.0 17 CBC Auto Diff 11/25/2017 [facility] White Blood 5.7 10^3/uL N 3.5-10.[address] [place] [address] [phone] Red Blood Count 4.68 10^6/uL N 4.00-5.40 [...] Cells % 0 Comp Metabolic Panel 11/25/2017 [facility] Sodium 140 mmol/L N 135-145 [address] [place] [address] [phone] Potassium 4.1 mmol/L N 3.5-5.0 Chloride 103 [...] Egfr 151.1 >60 18 Urinalysis Profile 11/25/2017 [facility] Urine Color Yellow [address] [place] [address] [phone] Urine Appearance Clear Urine Specific [place]adito 1.017 N 1.010-1.030 Urine pH 6.0 N 5-9 Urine Urobilinogen Negative Negative Urine Ketones Negative Negative Urine Protein Negative Negative Urine Leukocytes Negative Negative Urine Blood Negative Negative Urine Nitrite Negative Negative Urine Bilirubin Negative Negative Urine Glucose Negative Negative Inr/Protime 11/25/2017 [facility] Inr 0.89 N 0.77-1.[address] [place] [address] [phone] Laboratory test 11/25/2017 [facility] Partial 27.4 seconds N 26.0-36.[address] [place] [address] PTT [phone] Type & Screen 11/25/2017 [facility] Patient [place] [address] [phone] Antibody Screen NEGATIVE Urine Culture And 11/25/2017 [facility] Urine Culture SEE RESULT [address] [place] [address] [phone] Urine Culture And 07/20/2017 [facility] Urine Culture SEE RESULT [address] [place] [address] [phone] Laboratory test 10/01/2016 [facility] Surgical SEE RESULT 21, [address] [place] [address] [phone] Comp Metabolic 02/06/2016 [facility] Sodium 137 mmol/L N 133- Panel [address] [place] [address] [phone] Potassium 4.2 mmol/L N 3.5-5.0 Chloride 103 [...] N >60 23 CBC Auto Diff 02/06/2016 [facility] White Blood 5.2 10^3/uL N 3.5-10.[address] [place] [address] [phone] Red Blood Count 4.54 10^6/uL N 4.0-5.4 [...] % 0 N Vitamin D, 25 11/13/2013 [facility] 25-Hydroxy Vitamin <4.0 ng/ mL N [address] D2 [place] [address] [phone] 25-Hydroxy Vitamin D3 28 ng/mL N 25-Hydroxy Vitamin D Total 28 ng/mL N 25 Comp Metabolic Panel 11/13/2013 [facility] Sodium 138 mmol/L N 133-[address] [place] [address] [phone] Potassium 4.1 mmol/L N 3.7-5.6 Chloride 104 [...] 115.4 N >60 Egfr 148.4 N >60 26 Lipid Profile 11/13/2013 [facility] Triglycerides 53 mg/dL N 27 (Trig/Chol/HDL) [address] [place] [address] [phone] Cholesterol 286 mg/dL N 28 HDL Cholesterol 73.8 mg/dL N 29 LDL Cholesterol 202 mg/dL N 30 Laboratory 11/13/2013 [facility] Hepatitis C Nonreactive N Nonreactive test finding [address] [place] [address] [phone] Basic 08/16/2013 [facility] Sodium 135 mmol/L N 133-[address] [place] [address] [phone] Potassium 5.2 mmol/L N 3.7-5.6 Chloride 99 mmol/L Low 101-111 Co2 Carbon Dioxide 31 mmol/L N 22-32 Anion Gap 5 mmol/L N 2-11 Glucose 73 mg/dL N 70-100 Blood Urea Nitrogen 13 mg/dL N 6-24 Creatinine 0.46 mg/dL Low 0.51-0.95 BUN/Creatinine Ratio 28.3 High 8-20 Calcium 9.6 mg/dL N 8.6-10.3 Egfr Non- 135.9 N >60 Egfr 174.8 N >60 31 CBC With 10/16/2012 [facility] White Blood 5.9 10^3/uL 4.8- 10.[address] [place] [address] [phone] Red Blood Count 4.46 10^6/uL 4.0-5.4 Hemoglobin [...] RBC Morphology Normal Normal Laboratory test 10/16/2012 [facility] LDH 190 U/L High 95-[address] [place], [place] [phone] Laboratory test 10/16/2012 [facility] TSH (Thyroid 2.25 0.34- 5.[address] Stimulating miu/[place] [address] Horm) [phone] Comp Metabolic 10/16/2012 [facility] Sodium 138 133-[address] mmol/[place] [address] [phone] Potassium 4.0 mmol/L 3.5-5.0 Chloride 103 mmol/L [...] Egfr 159.2 >60 32 Laboratory test 10/16/2012 [facility] C Reactive < 0.5 mg/dL Less than finding [address] Protein 0.5 [place], [place] [address] [phone] Erythrocyte Sed Rate 16 mm/Hr 0-40 Vitamin D 1,25 11/01/2011 [facility] Vitamin D, 1,25 63 pg/mL 18-78 33 And Vitamin D,[address] [place] [address] [phone] Vitamin D, 25 11/01/2011 [facility] 25-Hydroxy <4.0 ng/mL () Hydroxy [address] Vitamin D2 [place] [address] [phone] 25-Hydroxy Vitamin D3 22 ng/mL () 25-Hydroxy Vitamin D Total 22 ng/mL Abnormal () 34 Laboratory test 11/01/2011 [facility] TSH 2.76 MIU/ML 0.34- 5.[address] [place] [address] [phone] Lipid Profile 11/01/2011 [facility] Triglyceride 43 mg/dL 40- 200 (Trig/Chol/HDL) [address] [place] [address] [phone] Cholesterol 246 mg/dL High Less Than 200 35 High Density Lipoprotein 90 mg/dL High 40-60 36 Cholesterol/HDL Ratio 2.73 AVERAGE 1-4.44 Low Density Lipoprotein 147 mg/dL High Less Than 100 37 Comp Metabolic Panel 11/01/2011 [facility] Sodium 134 mmol/L Low 135-145 [address] [place] [address] [phone] Potassium 4.2 mmol/L 3.5-5.0 Chloride 102 mmol/L 101-111 Co2 (Carbon Dioxide) 29.0 mmol/L 22-32 Anion Gap 3.0 mmol/L 2-11 38 Glucose 101 mg/dL High 70-100 BUN 13 mg/dL 6-24 Creatinine 0.5 mg/dL Low 0.50-1.40 One Over Creatinine 2.00 BUN/Creatinine Ratio 26.0 High 8-20 Calcium 8.9 mg/dL 8.1-9.9 Total Protein 6.2 GM/DL 6.2-8.1 Albumin 3.9 GM/DL 3.2-5.2 Globulin 2.3 GM/DL 2-4 Albumin/Globulin Ratio 1.7 1-3 Bilirubin Total 0.7 mg/dL 0.4-1.5 39 Alkaline Phosphatase 64 U/L 30-110 Alt (SGPT) 20 U/L 14-54 Ast (Sgot) 23 U/L 12-42 eGFR Non- 124.2 > 60 eGFR 159.7 > 60 40 Laboratory test 04/13/2011 [facility] CPK (Creatine 134 U/L 0 -[address] Kinase) [place] [address] [phone] Comp Metabolic 04/13/2011 [facility] Sodium 138 135-[address] mmol/[place] [address] [phone] Potassium 3.9 mmol/L 3.5-5.0 Chloride 101 mmol/L [...] > 60 eGFR 159.7 > 60 43 CKMB 04/13/2011 [facility] CKMB In NG/ML 4.3 NG/ML High 0.3- 4.[address] [place] [address] [phone] % CKMB 3 %MB 0-9 44 CBC Auto Diff 04/13/2011 [facility] White Blood 5.2 CUMM 4.8- 10.[address] [place] [address] [phone] Red Cell Count 4.39 CUMM 4.2-5.4 Hemoglobin [...] Abs Basophils 0.1 0-0.2 Laboratory test 04/13/2011 [facility] Troponin-I 0.01 NG/ML 0 -0.06 [address] [place] [address] [phone] Laboratory test 03/19/2011 [facility] TSH 2.89 0.34-5.[address] MIU/[place] [address] [phone] Vitamin D 1,25 03/19/2011 [facility] Vitamin D, 1,25 65 pg/mL 18-78 46 And Vitamin D,[address] [place] [address] [phone] Vitamin D, 25 03/19/2011 [facility] 25-Hydroxy <4.0 ng/mL () Hydroxy [address] Vitamin D2 [place] [address] [phone] 25-Hydroxy Vitamin D3 37 ng/mL () 25-Hydroxy Vitamin D Total 37 ng/mL () 47 Surgical 07/11/2006 [facility] Surgical [address] Pathology <SEE NOTE> [place] [address] [phone] 1 Standard intensity warfarin therapeutic range: 2.0-3.0 [...] of hypercalciuria) >80 ng/mL (toxicity possible) 9 Remodeler: [id number] 10 Because ethnic data is not always [...] 5 Kidney failure <15 (or dialysis) 11 Troponin-I testing on Plasma Separator Tubes (PST) has a known false positive rate of 0.20-0.40%. All positive troponins reflex immediately to secondary confirmatory testing. Using the [employer] DxI 800 Access Immunoassay systems, the 99th percentile upper reference limit was demonstrated to be < 0.03 ng/mL. 12 Please note: The following may produce a false positive D Dimer test: - Rheumatoid factor greater than 60 IU/ml - Plasma hemoglobin greater than 0.05 gm/dl - Bilirubin greater than 50 mg/dl - Lipids greater than 1000 mg/dl - FDP greater than 20 ug/ml 13 Standard intensity warfarin therapeutic range: 2.0-3.0 High intensity warfarin therapeutic range: 2.5-3.5 14 [facility] Severe Sepsis and Septic Shock Management Bundle [...] troponins reflex immediate secondary confirmatory testing. 17 [facility] Severe Sepsis and Septic Shock Management Bundle [...] (or dialysis) 19 SEE RESULT BELOW Name: NABILA CLEARY : [address]: Akosua Guzman MD Acct: [id number] Unit: [id number] AGE: 71 Location: [facility] Re11/25/17 SEX: F Status: REG REF SPEC: [id number] CUCA: 11/25/[address] [facility] [address]: Akosua Guzman MD REQ: [id number] RECD: 11/25/17 STATUS: RAIZA GUDINO DR: Hugo Rogers ARCHITECTURAL RENDERER _ SOURCE: URINE SPDESC: ORDERED: Urine Culture QUERIES: Urine Source: Clean Catch Procedure Result Reported Site Urine Culture Final 11/26/17- 1312 ML No Growth (<1,000 CFU/mL) * ML - Main Lab . END OF REPORT DEPARTMENT OF PATHOLOGY, [address] [place] [address] Kervin Read M.D. Director NO # [id number] 20 SEE RESULT BELOW Name: NABILA CLEARY : [address]: Jeni Gardner NP Acct: [id number] Unit: [id number] AGE: 71 Location: [facility] Re07/20/17 SEX: F Status: REG REF SPEC: [id number] CUCA: 07/20/[address] [facility] [address]: Jeni Gardner NP REQ: [id number] RECD: 07/20/17 STATUS: RAIZA GUDINO DR: Abida Wadsworth MD _ SOURCE: URINE SPDESC: ORDERED: Urine Culture Procedure Result Reported Site Urine Culture Final 07/22/17- 0854 ML Organism 1 ESCHERICHIA COLI [place] Count >100,000 (Many) CFU/ML 1. ESCHERICHIA COLI [...] . END OF REPORT DEPARTMENT OF PATHOLOGY, [address] [place] [address] Kervin Read M.D. Director [facility] # [id number] 21 [id number] 22 SEE RESULT BELOW Name: NABILA CLEARY : [address]: Adrian España MD Acct: [id number] Unit: [id number] AGE: 70 Location: [facility] Re10/01/16 SEX: F Status: REG REF SPEC: [id number] CUCA: 10/01/16-[address] [facility] [address]: Adrian España MD REQ: [id number] RECD: 10/01/16 STATUS: ZAFAR GUDINO DR: Dakota Gardner ARCHITECTURAL RENDERER _ ORDERED: LEVEL 4/3 COMMENTS: [id number] FINAL DIAGNOSIS 1. Skin, left cheek superior, [...] performed at Main Lab DEPARTMENT OF PATHOLOGY, [address] [place] [address] Kervin Read M.D. Director [facility] # [id number] RUN DATE: 10/06/16 [facility] LAB LIVE PAGE 2 Patient: NABILA CLEARY [id number] (Continued) GROSS DESCRIPTION (Continued) Signed (signature on file) Fatuma Morrison MD 1331 END OF REPORT * ML=Testing performed at Main Lab DEPARTMENT OF PATHOLOGY, [address] [place] [address] Kervin Read M.D. Director [facility] # [id number] 23 Because ethnic data is not always [...] failure <15 (or dialysis) 24 FASTING 25 -- REFERENCE VALUE -- 25-HYDROXY D TOTAL (D2+D3) Optimum levels in the healthy population are 20-50, patients with bone disease may benefit from higher levels within this range. Test Performed by: [address] [address] Truck Farmer: Brad Langley III, M.D. 26 Because ethnic data is not always [...] 5 Kidney failure <15 (or dialysis) 27 Desirable <150 Borderline high 150-199 High 200-499 Very High >500 28 Desirable <200 Borderline high 200-239 High >239 29 Low <40 Desirable: 40-60 High: >60 30 Desirable <100 Near Optimal 100-129 Borderline high 130-159 High 160-189 Very High >189 31 Because ethnic data is not always [...] <15 (or dialysis) 33 Test Performed by: [place] [address] Truck Farmer: Brad Langley III, M.D. 34 Interpretation: 10-24 (mild to moderate deficiency) -- REFERENCE VALUE -- 25-HYDROXY D TOTAL (D2+D3) Optimum levels in the normal population are 25-80 Test Performed by: [place] [address] Truck Farmer: Brad Langley III, M.D. 35 CHOLESTEROL INTERPRETATION: Desirable: Less than 200 MG/DL Borderline-High Risk: 200-239 MG/DL High-Risk: 240 MG/DL and over 36 HDL INTERPRETATION: Undesirable: High Risk: Less than 40 MG/DL Desirable: Low Risk: Greater than 60 MG/DL 37 LDL INTERPRETATION: Low Risk Optimal Level: LDL Less than 100 MG/DL Near or Above Optimal: LDL 100-129 MG/DL Borderline High Risk: LDL 130-159 MG/DL High Risk: LDL 160-189 MG/DL Very High Risk: LDL Greater than 189 MG/DL 38 Anion gap measurement may be of limited value in the presence of any alkalosis, especially in a combined acid base disorder. . 39 A metabolite of Naproxen, O-desmethylnaproxen, has been shown to interfere with the Jendrassik-Jono method for measuring total bilirubin. Samples from patients who have taken Naproxen have shown spurious elevation in total bilirubin levels. 40 Because ethnic data is not always readily [...] 15-29 5 Kidney failure <15 (or dialysis) 41 Anion gap measurement may be of limited value in the presence of any alkalosis, especially in a combined acid base disorder. . 42 A metabolite of Naproxen, O-desmethylnaproxen, has been shown to interfere with the Jendrassik-[place] method for measuring total bilirubin. Samples from [...] 5 Kidney failure <15 (or dialysis) 44 INTERPRETATION %CK-MB < 5% NOT SUPPORTIVE OF DIAGNOSIS OF CA 5 - <10% INDETERMINATE; SUGGEST SERIAL STUDIES IF CLINICALLY INDICATED 10% OR > CONSISTENT WITH DIAGNOSIS OF CA . 45 New Reference Range and Interpretation effective 02/16/2002 TnI (ng/ml) INTERPRETATION Less Than 0.06 ng/mL NOT SUPPORTIVE OF DIAGNOSIS OF CA 0.06 - 0.50 ng/ml INDETERMINATE: SUGGEST SERIAL STUDIES IF CLINICALLY INDICATED. Greater than 0.5 ng/mL CONSISTENT WITH DIAGNOSIS OF CA . 46 Test Performed by: [facility] Dpt of Lab Med and Pathology [address] [place] [address] Truck Farmer: Brad Langley III, M.D. 47 -- REFERENCE VALUE -- 25-HYDROXY D TOTAL (D2+D3) Optimum levels in the normal population are 25-80 Test Performed by: [facility] Dpt of Lab Med and Pathology [address] [place] [address] Truck Farmer: Brad Langley III, M.D. 48 ---- RUN DATE: 07/13/06 [facility] NMI LIVE PAGE 1 RUN TIME: 1521 Specimen Inquiry RUN USER: INTERFACE [id number] NABILA CLEARY 60/F <[facility] 07/12> ([id number]) Celestino Stephen MD -- Specimen: [id number] SOUT Spec Date: 07/11/[address]: Celestino Sierra MD Spec Type: SURGICAL P Received: 07/12/0683 Copies to: Maryjo Joshi MD SPECIMEN L3 -L4 DISC HISTORY PRE-OP DIAGNOSIS: L3-L4 disc protrusion GROSS DESCRIPTION The specimen is received in formalin labelled Nabila Cleary, L3-L4 Disc and consists of multiple fragments of hill-mixon fibrous soft tissue measuring 2.5 x 1.5 x 0.6 cm. in aggregate. [employer] E[employer] Specialist sections, one cassette. DIAGNOSIS Intervertebral disc, L3-4, discectomy - Intervertebral disc material. Signed Electronically by: KERVIN READ MD 07/13/06 -- -- DEPARTMENT OF PATHOLOGY, [address] [place] [address] [facility] Permit #[id number] [place] II, M.D. Director Alba Stuartctor -- Procedures Date Code Description Status 10/27/2018 83785 ECHO Transthorasic Realtime 2D W Doppler & Color Flow Completed Hosp 09/15/2018 96809 Admin Of Inj Completed 07/19/2018 00458 Polysomnography Sleep Staging 4+ Parameters Completed 03/22/2018 15150 EKG Tracing & Interpretation Completed 12/08/2017 84259 THR Total Hip Replacement Completed 12/08/2017 30908 THR Total Hip Replacement Completed 12/06/2017 87281 Diffusing Capacity Completed 12/06/2017 55101 Plethysmography Determination Lung Volumes & Per Completed Airway Resist 12/06/2017 20773 Pulmonary Function><Bronchodil Completed 11/27/2017 36155 Sleep Study Unattended,HRT Rate,Oxygen Sat,Resp Completed Effort/Airflow 11/23/2017 66183 EKG Tracing & Interpretation Completed 03/01/2017 38597 Admin Of Inj Completed 09/02/2016 79338 Admin Of Inj Completed 03/05/2016 78809 Chemotherpy Admin Subcutaneous/Im Non-Hormonal Completed Anti-Neoplastic 08/19/2015 [id number] Mammogram Completed 08/19/2015 [id number] Bone Mineral Density Test Completed 10/10/2013 29644 EKG Tracing & Interpretation Completed 08/22/2013 [id number] Mammogram Completed 11/11/2011 [id number] Colonoscopy Completed 08/10/2011 37892 EKG Tracing & Interpretation Completed 04/13/2011 23288 Noninvasive Ear Or Pulse Oximetry For Oxygen Completed Saturation 04/13/2011 36438 EKG Tracing & Interpretation Completed 03/18/2011 446320676 Bone Mineral Density Test Completed 02/18/2011 83145853 Mammogram Completed 02/10/2011 31034 Noninvasive Ear Or Pulse Oximetry For Oxygen Completed Saturation 02/03/2011 90497 Noninvasive Ear Or Pulse Oximetry For Oxygen Completed Saturation 12/10/2010 94180 Noninvasive Ear Or Pulse Oximetry For Oxygen Completed Saturation 12/03/2010 54983 Inhalation TX For Acute Airway Obstruction Completed W/Nebulizer/Inhaler 12/03/2010 50343 Noninvasive Ear Or Pulse Oximetry For Oxygen Completed Saturation 03/25/2010 68792 EKG Tracing & Interpretation Completed 09/24/2008 844545396 Bone Mineral Density Test Completed 09/12/2008 33597 EKG Tracing & Interpretation Completed 04/26/2008 80800 Noninvasive Ear Or Pulse Oximetry For Oxygen Completed Saturation 04/26/2008 19358 Noninvasive Ear Or Pulse Oximetry For Oxygen Completed Saturation 04/26/2008 14253 Inhalation TX For Acute Airway Obstruction Completed W/Nebulizer/Inhaler 09/06/2007 [id number] Mammogram Completed 07/13/2006 07395 EKG Tracing & Interpretation Completed 07/13/2006 50029 EKG Tracing & Interpretation Completed 07/11/2006 26406 Laminotomy W/Decomp NRV RT,One Interspace,Lumbar Completed 06/23/2006 81530 EKG Tracing & Interpretation Completed 04/29/2006 18474703 Mammogram Completed Encounters Type Date Location Provider Dx Diagnosis Office Visit 10/29/2018 [facility] Grzegorz West MD J44.1 Chronic obstructive 9:43a Assjcarlos cox pulmonary disease w Hospitalists (acute) exacerbation F41.9 Anxiety disorder, unspecified I47.1 Supraventricular tachycardia Office Visit 10/28/2018 9:43a [facility] Grzegorz West J44.1 Chronic Assocjcarlos MD obstructive Hospitalists pulmonary disease w (acute) exacerbation G35 Multiple sclerosis F41.9 Anxiety disorder, unspecified Z86.718 Personal history of other venous thrombosis and embolism J96.01 Acute respiratory failure with hypoxia Office Visit 10/27/2018 9:43a [facility] Renetta J44.1 Chronic Assoc,jcarlos Wong MD obstructive Hospitalists pulmonary disease w (acute) exacerbation G35 Multiple sclerosis F41.9 Anxiety disorder, unspecified Z86.718 Personal history of other venous thrombosis and embolism Office Visit 09/15/2018 4:00p [facility] Internal Hugo Rogers J44.9 Chronic obstructive Medicine - Ccmob ARCHITECTURAL RENDERER pulmonary disease, unspecified G35 Multiple sclerosis Office Visit 09/11/2018 [facility] Marilu Nash J96.01 Acute respiratory 8:57a jcarlos Gray M.D. failure with Hospitalists hypoxia J44.1 Chronic obstructive pulmonary disease w (acute) exacerbation Office Visit 09/10/2018 [facility] Marilu Nash J96.01 Acute respiratory 8:56a jcarlos Gray M.D. failure with Hospitalists hypoxia J44.1 Chronic obstructive pulmonary disease w (acute) exacerbation G35 Multiple sclerosis Office Visit 09/09/2018 [facility] Shelly J44.1 Chronic 8:55a Assoc,jcarlos Francois NP obstructive Hospitalists pulmonary disease w (acute) exacerbation G35 Multiple sclerosis Office Visit 08/31/2018 1:00p Pulmonology And Karli Marinelli44.9 Chronic Sleep Services Of OLENA Brito obstructive Cableman pulmonary disease, unspecified Office Visit 08/22/2018 3:20p [facility] Internal Yves Rogers44.9 Chronic Medicine - Ccmob N.P. obstructive pulmonary disease, unspecified R10.31 Right lower quadrant pain R60.0 Localized edema Office Visit 08/18/2018 1:15p Orthopedic Services Akosua Guzman, M25.552 Pain in left Of C.M.A. M.D. hip Z96.642 Presence of left artificial hip joint M79.652 Pain in left thigh M62.81 Muscle weakness (generalized) M16.12 Unilateral primary osteoarthritis, left hip Office Visit 08/16/2018 2:15p [facility] Garrison Perez G35 Multiple Services Of Oj Mckeon M.D. sclerosis Z79.899 Other moth exterminator (current) drug therapy Office Visit 07/26/2018 11:00a Pulmonology And Sleep Laquita Lowe, R06.83 Snoring Services Of [facility] J44.9 Chronic obstructive pulmonary disease, unspecified Office Visit 06/28/2018 8:57a [facility] Delia J96.01 Acute respiratory Assocjcarlos M.D. failure with Hospitalists hypoxia J44.1 Chronic obstructive pulmonary disease w (acute) exacerbation Office Visit 06/27/2018 8:56a [facility] Delia J96.01 Acute respiratory Assoc,jcarlos Brooks M.D. failure with Hospitalists hypoxia J44.1 Chronic obstructive pulmonary disease w (acute) exacerbation Office Visit 06/26/2018 [facility] Lisbet J44.1 Chronic 8:56a Assoc,jcarlos Robertson MD obstructive Hospitalists pulmonary disease w (acute) exacerbation Office Visit 06/19/2018 [place] Trinity Perez G35 Multiple sclerosis 11:15a Services Of Oj Mckeon M.D. Z79.899 Other moth exterminator (current) drug therapy Office Visit 06/13/2018 9:15a Pulmonology And Laquita J44.9 Chronic Sleep Services Of MD Mynor obstructive [place] pulmonary disease, unspecified R06.83 Snoring Office Visit [...] Ccmob N.P. (primary) hypertension Office Visit 12/10/2017 [facility] Grzegorz West MD J44.9 Chronic 10:37a Assoc,pc obstructive Hospitalists pulmonary disease, unspecified E78.5 Hyperlipidemia, unspecified G35 Multiple sclerosis Office Visit 12/09/2017 10:37a [facility] Darlene J44.9 Chronic Assoc, Emory Marks, obstructive Hospitalists ARCHITECTURAL RENDERER pulmonary disease, unspecified G35 Multiple sclerosis E78.5 Hyperlipidemia, unspecified Office Visit 12/08/2017 [facility] Bahgat J44.1 Chronic 10:36a Assoc,pc PENELOPE Wilson obstructive Hospitalists pulmonary disease w (acute) exacerbation E78.5 Hyperlipidemia, unspecified G35 Multiple sclerosis Office Visit 11/23/2017 2:00p [facility] Internal Hugo Rogers, Z01.818 Encounter for other Medicine - ARCHITECTURAL RENDERER preprocedural Ccmob examination M16.12 Unilateral primary osteoarthritis, [...] Office Visit 03/16/2017 10:30a Neurohospitalist Garrison Kuo [facility] Alba Mckeon sclerosis Z79.899 Other moth exterminator (current) drug therapy Office Visit 01/07/2017 DoNotUse [facility] Internal Shane Andrea R60.0 Localized 11:00a Medicine-Elayne Wing M.D. edema Office Visit 12/28/2016 [facility] Internal Medicine - Jeni M54.31 Sciatica, 1:00p [facility], [facility] right side J44.9 Chronic obstructive pulmonary disease, unspecified Office Visit 08/04/2016 2:20p [facility] Internal Jeni Gardner, M79.661 Pain in right Medicine - Ccmob N.P. lower leg Z86.718 Personal history of other venous thrombosis and embolism Office Visit 07/22/2016 10:40a [facility] Internal Jeni Gardner M54.2 Cervicalgia Medicine - Ccmob N.P. Office Visit 07/07/2016 10:30a Orthopedic Akosua Guzman, M25.552 Pain in left hip Services Of Alba Savage M16.12 Unilateral primary osteoarthritis, left hip Office Visit 06/22/2016 10:00a [facility] Internal Jeni Gardner, S39.013A Strain of Medicine - [facility] muscle, fascia and tendon of pelvis, init encntr R10.32 Left lower quadrant pain Office Visit 04/16/2016 2:40p [facility] Internal Hugo Rogers, J06.9 Acute upper Medicine - [facility] ARCHITECTURAL RENDERER respiratory infection, unspecified J44.9 Chronic obstructive pulmonary disease, unspecified Office Visit 03/02/2016 Neurohospitalist Ayaan Loza Multiple 9:30a Clinic ARCHITECTURAL RENDERER sclerosis J44.9 Chronic obstructive pulmonary disease, unspecified S39.013A Strain of muscle, fascia and tendon of pelvis, init encntr Z79.899 Other moth exterminator (current) drug therapy Office Visit 02/09/2016 11:20a [facility] Internal Jeni Gardner, Z23 Encounter for Medicine - C[facility]ob N.P. immunization S39.013A Strain of muscle, fascia and tendon of pelvis, init encntr M81.0 Age-related osteoporosis w/o current pathological fracture Office Visit 10/24/2015 1:20p [facility] Internal Jeni Gardner, M81.0 Age- related Medicine [...] Hugo Sue, J20.9 Acute bronchitis, Medicine - Ccmob ARCHITECTURAL RENDERER unspecified J44.1 Chronic obstructive pulmonary disease w (acute) exacerbation Office Visit 11/26/2014 10:00a [place] [facility] Ji S. 340 Multiple Services Of [facility] Alba Mckeon Sclerosis 780.79 Malaise And Fatigue [...] 564.00 Constipation Unspecified Office Visit 10/23/2013 2:15p [facility] Garrison S. 340 Multiple Services Of [facility] Alba Mckeon Sclerosis Office Visit 10/10/2013 2:00p [facility] Internal Maryjo Joshi, V70.0 Examination Medicine - [facility], FACP General Medical Routine AT Health [...] Joshi, 496 COPD Airway Medicine - Charles Willis, FACP Obstruction Chronic Not Class Elsewhere 530.81 Esophageal Reflux 575.8 Gallbladder Disorders Other Spec Office Visit 08/16/2013 3:40p [facility] Internal Maryjo Joshi, 496 COPD Airway Medicine - [facility], FACP Obstruction Chronic Not Class Elsewhere 530.81 Esophageal Reflux Office Visit 04/19/2013 4:00p [facility] Internal Maryjo Joshi, 466.0 Bronchitis Acute Medicine - Charles Willis, FACP Office Visit 02/22/2013 9:00a [facility] Internal Maryjo Joshi, 564.1 Irritable Bowel Medicine - [facility], FACP Syndrome 496 COPD Airway Obstruction Chronic Not Class Elsewhere 300.00 Anxiety State Unspec 340 Multiple Sclerosis Office Visit 11/06/2012 11:20a [facility] Internal Maryjo Joshi, 715.14 Osteoarthrosis Medicine - Alba, FACP Localized Prim Hand [facility]ob 780.79 Malaise And Fatigue Other Office Visit 10/16/2012 11:20a [facility] Internal Maryjo Joshi, 780.79 Malaise And Medicine - [facility] M.Viri, FACP Fatigue Other 785.6 Lymph Nodes Enlargement Office Visit 10/04/2012 2:45p [facility] Garrison S. 340 Multiple Services Of [facility] Alba Mckeon Sclerosis Office Visit 05/01/2012 9:40a [facility] Internal Jeni Gardner, 340 Multiple Medicine - Ccmob N.P. Sclerosis 380.4 Impacted Cerumen 466.0 Bronchitis Acute Office Visit 04/27/2012 10:40a [facility] Internal Jeni Varn, 466.0 Bronchitis Acute Medicine - Ccmob N.P. 380.4 Impacted Cerumen Office Visit 03/03/2012 3:40p [facility] Internal Jeni Varn, 466.0 Bronchitis Acute Medicine - [facility]ob N.P. Office Visit 11/08/2011 8:40a [facility] Internal Jeni Gardner, 268.9 Vitamin D Medicine - Ccmob N.P. Deficiency Unspec 272.4 Hyperlipidemia Other Unspec 305.1 Tobacco Use Disorder Office Visit 09/06/2011 4:20p [facility] Internal Abida 528.6 Oral Soft Tissue Medicine - Alba Wadsworth Exlud Ginviva & Ccmob Tongue Leukoplakia Mucosa 923.10 Contusion Forearm Office Visit 08/10/2011 2:20p [facility] Internal Maryjolisa Joshi, V70.0 Examination Medicine - Charles Willis, FACP General Medical Routine AT Health Care Facility V76.10 Screening For Malignant Neoplasm Breast 496 COPD Airway Obstruction Chronic Not Class Elsewhere 733.90 Bone & Cartilage Disorder Unspec 305.1 Tobacco Use Disorder 401.1 Hypertension Benign 780.52 Insomnia Unspecified v72.60 Laboratory Examination, Unspecified Office Visit 04/15/2011 DO Not Use Jeni Kendra, 723.1 Cervicalgia 10:00a Oj-Harmans N.P. Office Visit 04/13/2011 DO Not Use Maryjo Madelyn, 786.59 Pain Chest Other 10:00a Gavino Willis, FACP 723.1 Cervicalgia Office Visit 03/15/2011 10:00a DO Not Use Maryjo Madelyn, 596.9 Bladder Gavino Willis, FACP Disorders Unspec 300.00 Anxiety State Unspec 305.1 Tobacco Use Disorder 733.90 Bone & Cartilage Disorder Unspec Office Visit 02/10/2011 2:20p DO Not Use Maryjo Mdaelyn, 496 COPD Airway Gavino Willis, FACP Obstruction [...] Office Visit 12/03/2010 3:00p DO Not Use Maryjolisa Joshi, Presley6 COPD [...] Use Jeni Gardner, 466.0 Bronchitis Acute 3:45p [facility]-Harmans N.P. Office Visit 04/24/2009 DO Not Use [...] Use Jeni Kendra, 461.9 Sinusitis Acute 2:30p [place]-Harmans N.P. Unspec Office Visit 10/02/2008 DO Not Use Maryjolisa Joshi, 496 COPD Airway 2:45p Gavino Willis, FACP Obstruction Chronic Not Class Elsewhere 340 Multiple Sclerosis 780.79 Malaise And Fatigue Other Office Visit 09/12/2008 3:00p DO Not Use Maryjo Joshi, V72.31 Routine Manager Medicaid Gavino Willis, FACP Examination 340 Multiple Sclerosis 496 COPD Airway Obstruction Chronic Not Class Elsewhere 733.00 Osteoporosis Unspec Office Visit 06/24/2008 DO Not Use Jeni 727.04 Tenosynovitis 2:00p [place]-[facility]ans Varn, N.P. Radial Styloid 719.41 Pain Joint Shoulder Region Office Visit 06/19/2008 DO Not Use Jeni Varn, 466.0 Bronchitis Acute 4:00p [place]-Harmans N.P. Office Visit 04/26/2008 DO Not Use Maryjo Joshi, 496 COPD Airway 3:45p Gavino Willis, FACP Obstruction Chronic Not Class Elsewhere 466.0 Bronchitis Acute Office Visit 04/15/2008 DO Not Use Jeni Varn, 611.72 Lump Or Mass 3:30p [place]-Harmans N.P. 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 Infection Site Not Spec Office Visit 03/28/2007 Neurosurgery Celestino Mercado 724.2 Lumbago 3:30p Services Of Oj Allen M.D. Office Visit 02/07/2007 DO Not Use Jeni Gardner, 564.00 Constipation 11:45a Oj-Harmans N.P. Unspecified 465.9 URI Upper Respiratory Infections [...] 720.2 [facility]roiliitis [facility] 4:00[facility] Elsewhere Classified 719.45 Pain Joint Pelvic Region & Thigh 340 Multiple Sclerosis 564.00 Constipation Unspecified Office Visit 06/23/2006 2:30p DO Not Use Maryjo Madelyn, V70.0 Examination [facility] F[facility] General Medical Routine AT Health Care Facility 340 Multiple Sclerosis V06.1 Qgdietrzjl-Nwxgfkb-Whqiuhdc Combined (DTaP) Office Visit 12/30/2005 11:15a DO Not Use Maryjo Madelyn, 610.0 Cyst Breast Gavino Willis, FACP Solitary 340 Multiple Sclerosis 272.4 Hyperlipidemia Other Unspec Plan of Treatment Future Appointment(s):11/21/2018 1:45 pm - Garrison Mckeon M.D. at [facility]12/11/2018 11:30 am - Laquita Lowe MD at [facility]11/06/2018 - Jeni Gardner N.Jaden.J44.1 Chronic obstructive pulmonary disease with (acute) exacerbatComments:For your COPD:Continue your current regimen. I am referring you to Dr Lowe for follow up.I think it might be helpful to be screened for allergies as some of your symptoms may be triggered by these. Satnam referring you to an optical worker for evaluation.Referral:Laquita Lowe MD, Pulmonary DiseasesNo Doctor [id number] Essential (primary) hypertensionComments:For your high blood pressure: Continue with your current medication. I would like you to monitor your blood pressure at home. If your readings at home are consistently higher than 140/90, please call the office.
[2018-11-20 19:18] VITALS: BP 139/81
[2018-11-20] MEDS ORDERED: predniSONE TAB* 20 MG PO ONE (19:51)
--- NOTE | 2018-11-20 19:59 | UC ---
Skin Complaint HPI - HPI Summary HPI Summary: 72 yo female with severe copd presents with spreading mildly pruritc rash x 2-3 days states her breathing is at her baseline no CP at baseline severity of dyspnea no fever - History of Current Complaint Chief Complaint: UCSkin Time Seen by Provider: 11/20/18 19:38 Stated Complaint: RASH Hx Obtained From: Patient Hx Last Menstrual Period: POST Onset/Duration: Gradual Onset, Lasting Days Skin Exposure Onset/Duration: Days Ago Timing: Constant Onset Severity: Mild Current Severity: Moderate Pain Intensity: 0 Pain Scale Used: 0-10 Numeric Location: Diffuse - x palms and soles, worse on trunk - Allergy/Home Medications Allergies/Adverse Reactions: Allergies Allergy/AdvReac Type Severity Reaction Status Date / Time amoxicillin [From Augmentin] Allergy Intermediate Hives Verified 11/20/18 19:18 clavulanic acid Allergy Intermediate Hives Verified 11/20/18 19:18 [From Augmentin] Sulfa (Sulfonamide Allergy Intermediate Hives Verified 11/20/18 19:18 Antibiotics) PMH/Surg Hx/FS Hx/Imm Hx Previously Healthy: Yes Other History Of: Anticoagulant Therapy - 81 mg aspirin Negative For: HIV, Hepatitis B, Hepatitis C - Surgical History Surgical History: Yes Surgery Procedure, Year, and Place: TONSILECTOMY; APPENDECTOMY; PARTIAL HYSTERECTOMY; EXPLORATORY THYROID; DISCECTOMY LOW BACK-2006; BREAST BIOPSY CLIP -Rt, LEFT HIP REPLACEMENT 12/2017 - Family History Known Family History: Positive: Cardiac Disease, Diabetes, Other - MS Negative: Hypertension - Social History Alcohol Use: Rare Substance Use Type: None Smoking Status (MU): Former Smoker Type: Cigarettes, eCigarettes Amount Used/How Often: 1/2-pack per day for 40 years Length of Time of Smoking/Using Tobacco: 40 years Have You Smoked in the Last Year: Yes When Did the Patient Quit Smoking/Using Tobacco: 2011 - Immunization History Most Recent Influenza Vaccination: Fall 2017 Most Recent Pneumonia Vaccination: 2015 Review of Systems All Other Systems Reviewed And Are Negative: Yes Constitutional: Positive: Negative Skin: Positive: Rash Eyes: Positive: Negative ENT: Positive: Negative Respiratory: Positive: Shortness Of Breath, Cough, Other - chronic Cardiovascular: Positive: Negative Gastrointestinal: Positive: Negative Genitourinary: Positive: Negative Motor: Positive: Negative Neurovascular: Positive: Negative Musculoskeletal: Positive: Negative Neurological: Positive: Negative Psychological: Positive: Negative Physical Exam Triage Information Reviewed: Yes Appearance: Well-Appearing, No Pain Distress, Well-Nourished Vital Signs: Initial Vital Signs Temp 99.1 F 11/20/18 19:11 Pulse 95 11/20/18 19:11 Resp 18 11/20/18 19:11 BP 139/81 11/20/18 19:11 Pulse Ox 94 11/20/18 19:11 Vital Signs Reviewed: Yes Eyes: Positive: Conjunctiva Clear ENT Exam: Normal ENT: Negative: Nasal congestion, Nasal drainage, Trismus, Muffled voice, Hoarse voice Neck: Positive: Supple, Nontender, No Lymphadenopathy Respiratory: Positive: Wheezing - with increase WOB Cardiovascular: Positive: RRR, No Murmur Musculoskeletal: Positive: ROM Intact, No Edema Neurological: Positive: Alert Psychological Exam: Normal Skin: Positive: Rashes - diffuse macular rash Course/Dx - Diagnoses Provider Diagnosis: Macular erythematous rash Discharge - Sign-Out/Discharge Documenting (check all that apply): Patient Departure All imaging exams completed and their final reports reviewed: No Studies - Discharge Plan Condition: Stable Disposition: HOME Prescriptions: Fexofenadine (NF) [Milka (NF)] 60 mg PO BID #14 tab predniSONE [Deltasone 20 MG TAB] 40 mg PO DAILY #8 tab Patient Education Materials: Acute Rash (ED) Referrals: Jeni Gardner NP [Primary Care Provider] - As Soon As Possible Additional Instructions: try to get in to see your provider this week I am unsure of the cause of your rash - Billing Disposition and Condition Condition: STABLE Disposition: Home
== END 2018-11-20 20:09 | disposition home or self-care (01) ==
LOC: UCEAST 19:01
DX: R21 Rash and other nonspecific skin eruption (principal); Z79.82 Long term (current) use of aspirin; Z87.891 Personal history of nicotine dependence; Z88.2 Allergy status to sulfonamides
CPT/HCPCS: 99212; G0463; J7512

== ENCOUNTER 2019-02-06 16:46 | Inpatient (IN) | payer MEDICARE, OTHER ==
--- OUTSIDE RECORDS SUMMARY | 2019-02-06 17:12 | XMS REPORT | Continuity of Care Document ---
:1945 External Reference #:[id number] Author Name Jeni Gardner N.P. (transmitted by agent of provider Camryn Cornell) Address [address] [facility], [place] [address] Care Team Providers Name Role Phone Stacey Raza MD - Internal Medicine Care Team Information Driver Starting Gate Problems Active Problems Provider Date Chronic obstructive lung disease Maryjo Joshi M.D., FACP Onset: 12/03/2010 Multiple sclerosis Maryjo Joshi M.D., FACP Onset: 12/03/2010 Tobacco user Maryjo Joshi M.D., FACP Onset: 03/15/2011 Localized, primary osteoarthritis of the Akosuadeonte Guzman M.D. Onset: 07/07/2016 pelvic region and thigh Chronic obstructive pulmonary disease with PENELOPE Haider Onset: 2017 (acute) exacerbation Hyperlipidemia PENELOPE Haider Onset: 12/08/2017 Social History Type Date Description Comments Sex Unknown Cigarette Use Pack Years - 46 Tobacco Use Start: Unknown Former Cigarette Smoker Quit 2012 Smoked End: Unknown for 40 years, 1ppd Tobacco Use Start: Unknown Vaping Not sure if it has nicotine, a couple times a day Smoking Status Reviewed: 02/06/19 Vaping Not sure if it has nicotine, [...] Medications SIG Qnty Indications Ordering Date Provider Alprazolam take 1 tablet by 30tabs F41.9 Laquitasandra Meyerali, 12/11/2018 0.25mg mouth once daily MD Tablets if needed for anxiety maximum daily dose of 1 Cardizem CD 1 by mouth every 90caps Jeni Gardner, 12/05/2018 120mg Caps day N.P. ER 24HR Baclofen 1/2 po qhs prn 45tabs Garrison S. 06/19/2018 10mg Tablets ruben Mckeon M.D. Nebulizer use three times a 1units Jeni Gardner, 07/18/2017 Device day as needed N.P. Prolia 1 ml q 6 months 1ml M81.0 Jeni Gardner, 10/24/2015 60mg/ml Solution N.P. Epipen 2-Ronal use one time as 2units M81.0 Jeni Gardner, 10/24/2015 directed N.P. 0.3mg/0.3ML Solution Auto-Inject Ventolin HFA inhale 1 to 2 18units J44.9 Jeni Gardner, 08/12/2015 puffs by mouth N.P. 108(90Base) mcg/Act every 4 hours if Aerosol needed Atorvastatin Calcium take 1 tablet by 90tabs E78.5 Jeni Gardner, 2013 mouth once daily N.P. 20mg Tablets Miralax 17 gm every day 238gm K59.00 Jeni Gardner, 11/27/2013 3350NF Powder mixed w/ 8 oz N.P. water/juice as needed Venlafaxine HCL ER take 1 capsule by 90caps Jeni Gardner, 02/22/2011 mouth once daily N.P. 150mg Caps ER 24HR maximum daily dose of 1 Albuterol Sulfate 1 vial via 60units J44.9 Hugo Rogers NP 12/10/2010 nebulizer up to 4 (2.5mg/3ML) 0.083% times a day as Nebulizer needed Ipratropium [place] use in nebulizer 60units Jeni Gardner, 12/10/2010 up to four times N.P. 0.02% Solution a day as needed Soma take once a day Unknown 250mg Tablets as needed, Combivent Respimat inhale 1 puff by Unknown mouth 4-6 times 20-100mcg/Act Aerosol daily as needed Lyrica take 1 tablet by 90caps Jeni Gardner, 100mg Capsules mouth 3 times N.P. daily. max/day = 3 mdd 3 History Medications Aubagio G35 Garrison Perez 01/16/2019 - 7mg Tablets Alba Mckeon 01/16/2019 Doxycycline 1 tab twice daily for 14tabs J44.1 Karli 01/11/2019 - Monohydrate 1 week OLENA Brito 02/06/2019 100mg Tablets Azithromycin take 2 tablets by 6tabs J44.1 Laquita Lowe, 12/11/2018 - 250mg mouth today then take 12/21/2018 Tablets 1 tablet daily for 4 days Prednisone 30mg daily for 1 42tabs J44.1 Karli 12/11/2018 - 10mg week, 20mg daily for OLENA Brito 02/06/2019 Tablets 1 week, 10 mg daily for 1 week Clonazepam 1 tab as needed for 30tabs F41.9 Laquita Lowe, 12/11/2018 - 0.125mg anxiety 12/11/2018 Tablets Dispers Diazepam take one tab one hour 2tabs Garrison Perez 11/28/2018 - 5mg prior to mri then september Alba Mckeon 12/10/2018 Tablets take the second tab if needed for claustrophobia mdd 2 Vitamin D3 Ultra one by mouth once 4tabs E55.9 Jeni Gardner, 10/18/2018 - Potency weekly N.P. 12/10/2018 10222Okbr Tablets Prednisone 1 by mouth every day; 20tabs J44.1 Shane Andrea 09/27/2018 - 20mg take 2 a day for the Alba Wing 10/04/2018 Tablets first 3 days Anoro Ellipta 1 inhalation daily 60units J44.9 Karli 08/31/2018 - OLENA Brito 01/10/2019 62.5-25mcg/Inh Aerosol Medications Administered in Office Medication SIG Qnty Indications Ordering Provider Date Prolia Injection, Denosumab, 1MG Hugo Rogers NP 09/15/2018 Injection Prolia Injection, Denosumab, 1MG Nurse Visit A 03/01/2017 Injection Prolia Injection, Denosumab, 1MG Nurse Visit A 09/02/2016 Injection Prolia Injection, Denosumab, 1MG Nurse Visit A 03/05/2016 Injection Immunizations CPT Code Status Date Vaccine Reaction Lot # [id number] Given 10/18/2018 Tetanus And Diptheria (Td) no Immediate [id number] For Adult Use Preservative reaction. Free 13256 Given 02/09/2016 Influenza Virus Vaccine, no reaction noted [id number] Quadrivalent, Split, .... hh Preservative Free 49719 Given 08/12/2015 Pneumococcal Conjugate [id number] Vaccine 13 Valent For Intramuscular Use Q2039 Given 03/05/2015 Flu Vacc[place] 12534 Given 02/26/2014 Fluzone High Dose Q2037 Given 04/18/2012 Fluvirin Im 3Yrs And Older Q2037 Given 04/18/2012 Fluvirin Im 3Yrs And Older [id number] 58397 Given 04/18/2012 Zoster (Zostavax) [id number] 65328 Given 02/03/2011 Influenza Virus 3Yrs & Over [id number] 17813 Given 03/20/2010 Influenza Virus 3Yrs & Over [id number] 57356 Given 04/24/2009 Administration Swine Flu Shot 01659 Given 04/24/2009 Influenza Virus Vaccine, Pandemic Formulation 32875 Given 02/24/2009 Influenza Virus 3Yrs & Over 31773 Given 02/16/2008 Pneumonia Vaccine 33383 Given 02/16/2008 Pneumonia Vaccine 77194 Given 02/16/2008 Influenza Virus 3Yrs & Over 39638 Given 04/18/2007 Influenza Virus 3Yrs & Over 57896 Given 06/23/2006 Tdap - Tetanus/Diptheria/Acellular Pertussis 23457 Given 06/23/2006 Tdap - Tetanus/Diptheria/Acellular Pertussis 72592 Given 04/04/2006 Influenza Virus 3Yrs & Over Vital Signs Date Vital Result Comment 02/06/2019 3:17pm Height 67 inches 5'7" Weight 112.50 lb Heart Rate 90 /min BP Systolic 135 mmHg Ra sitting BP Diastolic 78 mmHg Ra sitting Body Temperature 99.2 F 85 when came in room O2 % BldC Oximetry 85 % BMI (Body Mass Index) 17.6 kg/m2 01/16/2019 2:47pm Height 67 inches 5'7" Weight 125.00 lb Heart Rate 70 /min BP Systolic 130 mmHg BP Diastolic 78 mmHg BMI (Body Mass Index) 19.6 kg/m2 Results Test Date Facility Test Result H/L Range Note CBC Auto 01/16/2019 [facility] White Blood 10.2 10^3/uL Normal 3.5-10.[address] [place] [address] [phone] Red Blood Count 5.08 10^6/uL High 3.70-4.87 Hemoglobin 16.4 g/dL High 12.0-16.0 Hematocrit 47 % Normal 35-47 Mean Corpuscular Volume 93 fL Normal 80-97 Mean Corpuscular Hemoglobin 32 pg High 27-31 Mean Corpuscular HGB Conc 35 g/dL Normal 31-36 Red Cell Distribution Width 14 % Normal 10-15 Platelet Count 335 10^3/uL Normal 150-450 Mean Platelet Volume 8.2 fL Normal 7.4-10.4 Abs Neutrophils 6.6 10^3/uL Normal 1.5-7.7 Abs Lymphocytes 2.4 10^3/uL Normal 1.0-4.8 Abs Monocytes 1.0 10^3/uL High 0-0.8 Abs Eosinophils 0.1 10^3/uL Normal 0-0.6 Abs Basophils 0.0 10^3/uL Normal 0-0.2 Abs Nucleated RBC 0.0 10^3/uL Granulocyte % 64.6 % Lymphocyte % 23.9 % Monocyte % 10.2 % Eosinophil % 0.9 % Basophil % 0.4 % Nucleated Red Blood Cells % 0.0 Comp Metabolic 01/16/2019 [facility] Sodium 138 mmol/L Normal 135-[address] [place] [address] [phone] Potassium 3.9 mmol/L Normal 3.5-5.0 Chloride 101 mmol/L Normal 101-111 Co2 Carbon Dioxide 31 mmol/L Normal 22-32 Anion Gap 6 mmol/L Normal 2-11 Glucose 77 mg/dL Normal 70-100 Blood Urea Nitrogen 21 mg/dL Normal 6-24 Creatinine 0.60 mg/dL Normal 0.51-0.95 BUN/Creatinine Ratio 35.0 High 8-20 Calcium 10.0 mg/dL Normal 8.6-10.3 Total Protein 6.4 g/dL Normal 6.4-8.9 Albumin 4.4 g/dL Normal 3.2-5.2 Globulin 2.0 g/dL Normal 2-4 Albumin/Globulin Ratio 2.2 Normal 1-3 Total Bilirubin 0.50 mg/dL Normal 0.2-1.0 Alkaline Phosphatase 49 U/L Normal 34-104 Alt 19 U/L Normal 7-52 Ast 17 U/L Normal 13-39 Egfr Non- 98.3 >60 Egfr 118.9 >60 1 Stratify JCV 01/16/2019 [facility] JCV Antibody - Positive [address] [place] [address] [phone] CBC Auto Diff 10/27/2018 [facility] White Blood 7.6 10^3/uL Normal 3.5-[address] Count 0.8 [place] [address] [phone] Red Blood Count 4.94 10^6/uL High 3.70-4.87 Hemoglobin 15.4 g/dL Normal 12.0-16.0 Hematocrit 46 % Normal 35-47 Mean Corpuscular Volume 93 fL Normal 80-97 Mean Corpuscular Hemoglobin 31 pg Normal 27-31 Mean Corpuscular HGB Conc 34 g/dL Normal 31-36 Red Cell Distribution Width 15 % Normal 10-15 Platelet Count 255 10^3/uL Normal 150-450 Mean Platelet Volume 8.0 fL Normal 7.4-10.4 Abs Neutrophils 4.2 10^3/uL Normal 1.5-7.7 Abs Lymphocytes 2.0 10^3/uL Normal 1.0-4.8 Abs Monocytes 1.0 10^3/uL High 0-0.8 Abs Eosinophils 0.3 10^3/uL Normal 0-0.6 Abs Basophils 0.1 10^3/uL Normal 0-0.2 Abs Nucleated RBC 0.0 10^3/uL Granulocyte % 54.8 % Lymphocyte % 26.9 % Monocyte % 13.1 % Eosinophil % 4.0 % Basophil % 1.2 % Nucleated Red Blood Cells % 0.0 Inr/Protime 10/27/2018 [facility] Inr 0.92 Normal 0.82-1.[address] [place] [address] [phone] Laboratory test 10/27/2018 [facility] Partial 30.2 Normal 26.0 -38.[address] [place] [address] Time PTT [phone] Comp Metabolic 10/27/2018 [facility] Sodium 142 mmol/L Normal 135-[address] [place] [address] [phone] Potassium 4.0 mmol/L Normal 3.5-5.0 Chloride 105 mmol/L Normal 101-111 Co2 Carbon Dioxide 33 mmol/L High 22-32 Anion Gap 4 mmol/L Normal 2-11 Glucose 141 mg/dL High 70-100 Blood Urea Nitrogen 19 mg/dL Normal 6-24 Creatinine 0.61 mg/dL Normal 0.51-0.95 BUN/Creatinine Ratio 31.1 High 8-20 Calcium 10.1 mg/dL Normal 8.6-10.3 Total Protein 6.6 g/dL Normal 6.4-8.9 Albumin 4.0 g/dL Normal 3.2-5.2 Globulin 2.6 g/dL Normal 2-4 Albumin/Globulin Ratio 1.5 Normal 1-3 Total Bilirubin 0.30 mg/dL Normal 0.2-1.0 Alkaline Phosphatase 62 U/L Normal 34-104 Alt 14 U/L Normal 7-52 Ast 18 U/L Normal 13-39 Egfr Non- 96.7 >60 Egfr 117.0 >60 4 Laboratory test 10/27/2018 [facility] C Reactive 2.20 mg/L Normal <8.[address] [place] [address] [phone] B-Type Natriuretic Peptide BNP 48 pg/mL <=100 CBC Auto 10/10/2018 [facility] White Blood 10.5 10^3/uL Normal 3.5-10.[address] [place] [address] [phone] Red Blood Count 4.96 10^6/uL High 3.70-4.87 Hemoglobin 15.8 g/dL Normal 12.0-16.0 Hematocrit 46 % Normal 35-47 Mean Corpuscular Volume 93 fL Normal 80-97 Mean Corpuscular Hemoglobin 32 pg High 27-31 Mean Corpuscular HGB Conc 34 g/dL Normal 31-36 Red Cell Distribution Width 15 % Normal 10.5-15 Platelet Count 323 10^3/uL Normal 150-450 Mean Platelet Volume 7.9 fL Normal 7.4-10.4 Abs Neutrophils 6.3 10^3/uL Normal 1.5-7.7 Abs Lymphocytes 3.0 10^3/uL Normal 1.0-4.8 Abs Monocytes 0.8 10^3/uL Normal 0-0.8 Abs Eosinophils 0.2 10^3/uL Normal 0-0.6 Abs Basophils 0.1 10^3/uL Normal 0-0.2 Abs Nucleated RBC 0.0 10^3/uL Granulocyte % 60.4 % Lymphocyte % 29.1 % Monocyte % 7.8 % Eosinophil % 1.6 % Basophil % 1.1 % Nucleated Red Blood Cells % 0.0 Laboratory test 10/10/2018 [facility] Vitamin D 15.6 ng/mL Low 20-50 [address] Total 25(Oh) [place] [address] [phone] Comp Metabolic 10/10/2018 [facility] Sodium 140 mmol/L Normal 135-[address] [place] [address] [phone] Potassium 4.1 mmol/L Normal 3.5-5.0 Chloride 104 mmol/L Normal 101-111 Co2 Carbon Dioxide 28 mmol/L Normal 22-32 Anion Gap 8 mmol/L Normal 2-11 Glucose 75 mg/dL Normal 70-100 Blood Urea Nitrogen 18 mg/dL Normal 6-24 Creatinine 0.64 mg/dL Normal 0.51-0.95 BUN/Creatinine Ratio 28.1 High 8-20 Calcium 9.1 mg/dL Normal 8.6-10.3 Total Protein 6.3 g/dL Low 6.4-8.9 Albumin 4.1 g/dL Normal 3.2-5.2 Globulin 2.2 g/dL Normal 2-4 Albumin/Globulin Ratio 1.9 Normal 1-3 Total Bilirubin 0.60 mg/dL Normal 0.2-1.0 Alkaline Phosphatase 60 U/L Normal 34-104 Alt 14 U/L Normal 7-52 Ast 16 U/L Normal 13-39 Egfr Non- 91.5 >60 Egfr 110.7 >60 6 Lipid Profile 10/10/2018 [facility] Triglycerides 78 mg/dL 7 (Trig/Chol/HDL) [address] [place] [address] [phone] Cholesterol 294 mg/dL 8 HDL Cholesterol 96.7 mg/dL 9 LDL Cholesterol 182 mg/dL 10 Influenza A & B 09/09/2018 [facility] Influenza A NEGATIVE Negative [address] [place] [address] [phone] Influenza B Molecular NEGATIVE Negative Laboratory test 09/09/2018 [facility] Creatine 51 U/L Normal 10-[address] Kinase(CK) [place] [address] [phone] C Reactive Protein < 1.00 mg/L Normal <8.01 B-Type Natriuretic Peptide BNP 42 pg/mL <=100 Comp Metabolic 09/09/2018 [facility] Sodium 140 mmol/L Normal 135-[address] [place] [address] [phone] Potassium 4.5 mmol/L Normal 3.5-5.0 Chloride 104 mmol/L Normal 101-111 Co2 Carbon Dioxide 29 mmol/L Normal 22-32 Anion Gap 7 mmol/L Normal 2-11 Glucose 93 mg/dL Normal 70-100 Blood Urea Nitrogen 14 mg/dL Normal 6-24 Creatinine 0.61 mg/dL Normal 0.51-0.95 BUN/Creatinine Ratio 23.0 High 8-20 Calcium 9.7 mg/dL Normal 8.6-10.3 Total Protein 7.1 g/dL Normal 6.4-8.9 Albumin 4.2 g/dL Normal 3.2-5.2 Globulin 2.9 g/dL Normal 2-4 Albumin/Globulin Ratio 1.4 Normal 1-3 Total Bilirubin 0.60 mg/dL Normal 0.2-1.0 Alkaline Phosphatase 63 U/L Normal 34-104 Alt 13 U/L Normal 7-52 Ast 16 U/L Normal 13-39 Egfr Non- 96.7 >60 Egfr 117.0 >60 12 CKMB 09/09/2018 [facility] CKMB 3.0 ng/mL Normal 0.6-6.[address] ng/[place] [address] [phone] Laboratory test 09/09/2018 [facility] Troponin-I 0.01 ng/mL < 0.04 [address] (TnI) [place], [place] [id number] [phone] CBC Auto Diff 09/09/2018 [facility] White 7.8 Normal 3.5-10.[address] Blood 10^3/[place] [address] Count [phone] Red Blood Count 5.26 10^6/uL High 3.70-4.87 Hemoglobin 16.6 g/dL High 12.0-16.0 Hematocrit 49 % High 33-41 Mean Corpuscular Volume 92 fL Normal 80-97 Mean Corpuscular Hemoglobin 32 pg High 27-31 Mean Corpuscular HGB Conc 34 g/dL Normal 31-36 Red Cell Distribution Width 14 % Normal 10.5-15 Platelet Count 289 10^3/uL Normal 150-450 Mean Platelet Volume 7.7 fL Normal 7.4-10.4 Abs Neutrophils 5.9 10^3/uL Normal 1.5-7.7 Abs Lymphocytes 1.3 10^3/uL Normal 1.0-4.8 Abs Monocytes 0.4 10^3/uL Normal 0-0.8 Abs Eosinophils 0.1 10^3/uL Normal 0-0.6 Abs Basophils 0 10^3/uL Normal 0-0.2 Abs Nucleated RBC 0 10^3/uL Granulocyte % 75.8 % Lymphocyte % 16.6 % Monocyte % 5.6 % Eosinophil % 1.4 % Basophil % 0.6 % Nucleated Red Blood Cells % 0.2 Laboratory test 09/09/2018 [facility] Partial 27.4 Normal 26.0 -36.[address] [address] Time PTT [phone] D Dimer Quantitative < 200 ng/mL Normal Less Than 230 14 Inr/Protime 09/09/2018 [facility] Inr 0.94 Normal 0.82-1.[address] [place] [address] [phone] Laboratory test 09/09/2018 [facility] Lactic Acid 1.1 Normal 0.5-2.0 [address] mmol/[place] [address] [phone] 1 Because ethnic data is not always [...] 5 Kidney failure <15 (or dialysis) 2 TEST PROCEDURE TEST RESULTS OUT OF RANGE REFERENCE RANGE STRATIFY JCV(TM) AB WITH INDEX W/REFLEX TO INHIBITION Test Reported Date/Time: 01/24/2019 18:52 EDT INDEX VALUE 3.95 H JCV Antibody POSITIVE Index interpretive criteria: <0.20 negative 0.20-0.40 indeterminate >0.40 positive INTERPRETATION: Negative: Antibodies to JCV not detected. Indeterminate:Low level reactivity detected, see Inhibition Assay result to follow for the final antibody result. Positive: Antibodies to RYDER virus (JCV) detected indicating the patient has been exposed to JCV at an undetermined time. The STRATIFY JCV Antibody Test is an enzyme-linked immunoabsorbent assay (PATRICIA) designed to detect JCV antibodies to help identify individuals who have been exposed to the virus. Samples with low level reactivity in the detection assay are retested in a confirmation (inhibition) assay to confirm presence or absence of JCV-specific antibodies. Retrospective analysis of post marketing data from various sources, including observational studies and spontaneous reports obtained worldwide, suggest that the risk of developing PML may be associated with relative levels of serum anti-JCV antibody as measured by anti-RYDER antibody index. 1 1 TYSABRI (natalizumab) [place] Prescribing Information Test performed at: [facility] [address] [place] [address] Director: MD NO Atkins [id number] 3 Standard intensity warfarin therapeutic range: 2.0-3.0 High intensity warfarin therapeutic range: 2.5-3.5 4 Because ethnic data is not always [...] 5 Kidney failure <15 (or dialysis) 5 Total 25-Hydroxyvitamin D2 and D3 (25-OH-VitD) <10 ng/mL (severe deficiency) 10-19 ng/mL (mild to moderate deficiency) 20-50 ng/mL (optimum levels) 51-80 ng/mL (increased risk of hypercalciuria) >80 ng/mL (toxicity possible) 6 Because ethnic data is not always [...] 5 Kidney failure <15 (or dialysis) 7 Desirable: <150 Borderline High: 150-199 High: 200-499 Very High: >500 8 Desirable: <200 Borderline High: 200-239 High: >239 9 Low: <40 Desirable: 40-60 High: >60 10 Desirable: <100 Near Optimal: 100-129 Borderline High: 130-159 High: 160-189 Very High: >189 11 Substation Operator Helper Generation: [id number] 12 Because ethnic data is not always [...] 5 Kidney failure <15 (or dialysis) 13 Troponin-I testing on Plasma Separator Tubes (PST) has a known false positive rate of 0.20-0.40%. All positive troponins reflex immediately to secondary confirmatory testing. Using the Spectral Edge DxI 800 Access Immunoassay systems, the 99th percentile upper reference limit was demonstrated to be < 0.03 ng/mL. 14 Please note: The following may produce a false positive D Dimer test: - Rheumatoid factor greater than 60 IU/ml - Plasma hemoglobin greater than 0.05 gm/dl - Bilirubin greater than 50 mg/dl - Lipids greater than 1000 mg/dl - FDP greater than 20 ug/ml 15 Standard intensity warfarin therapeutic range: 2.0-3.0 High intensity warfarin therapeutic range: 2.5-3.5 16 [facility] Severe Sepsis and Septic Shock Management Bundle Measure requires all lactic acids initially measuring >2.0 mmol/L be repeated. Procedures Date Code Description Status 12/08/2018 [id number] Mammogram Completed 12/07/2018 [id number] Bone Mineral Density Test Completed 10/27/2018 34671 ECHO Transthorasic Realtime 2D W Doppler & Color Flow Completed Hosp 10/27/2018 13113 EKG, Interpretation Only Completed 09/15/2018 68870 Admin Of Inj Completed 08/19/2015 [id number] Bone Mineral Density Test Completed 08/19/2015 [id number] Mammogram Completed 08/22/2013 [id number] Mammogram Completed 11/11/2011 [id number] Colonoscopy Completed 03/18/2011 [id number] Bone Mineral Density Test Completed 02/18/2011 [id number] Mammogram Completed 09/24/2008 [id number] Bone Mineral Density Test Completed 09/06/2007 [id number] Mammogram Completed 04/29/2006 [id number] Mammogram Completed Medical Devices Description No Information Available Encounters Type Date Location Provider Dx Diagnosis Office Visit 01/16/2019 [facility] Иван Sheffield NP G35 Multiple sclerosis 2:30p [facility] Office Visit 01/11/2019 Pulmonology And Karli J44.1 Chronic obstructive 3:00p [facility] Services Of OLENA Brito pulmonary disease w Eight [place] Blower (acute) exacerbation J98.4 Other disorders of lung R91.1 Solitary pulmonary nodule Office Visit 12/11/2018 11:30a Pulmonology And Laquita J44.1 Chronic Sleep Services Of MD Myn[facility] obstructive [facility] pulmonary disease w (acute) exacerbation J98.4 Other disorders of lung F41.9 Anxiety disorder, unspecified Office Visit 11/06/2018 4:00p [facility] Internal Jeni Gardner J44.1 Chronic obstructive Medicine - N.P. pulmonary disease w Ccmob (acute) exacerbation I10 Essential (primary) hypertension Office Visit 10/29/2018 9:43a [facility] Yves Feliciano44.1 Chronic Assoc,jcarlos [facility] obstructive [facility] pulmonary disease w (acute) exacerbation F41.9 Anxiety disorder, unspecified I47.1 Supraventricular tachycardia Office Visit 10/28/2018 9:43a [facility] Yves Feliciano44.1 Chronic Assoc,jcarlos BECKWITH obstructive Hospitalists pulmonary disease w (acute) exacerbation G35 Multiple sclerosis F41.9 Anxiety disorder, unspecified Z86.718 Personal history of other venous thrombosis and embolism J96.01 Acute respiratory failure with hypoxia Office Visit 10/27/2018 9:43a [facility] Renetta J44.1 Chronic Assoc,jcarlos Wong MD obstructive Hospitalists pulmonary disease w (acute) exacerbation G35 Multiple sclerosis F41.9 Anxiety disorder, unspecified Z86.718 Personal history of other venous thrombosis and embolism Office Visit 09/15/2018 4:00p [facility] Hugo [facility] J44.9 [facility] pulmonary disease, unspecified G35 Multiple sclerosis Office Visit 09/11/2018 [facility] Marilu Nash, J96.01 Acute respiratory 8:57a jcarlos Gray M.D. failure with Hospitalists hypoxia J44.1 Chronic obstructive pulmonary disease w (acute) exacerbation Office Visit 09/10/2018 [facility] Marilu Nash, J96.01 Acute respiratory 8:56a jcarlos Gray M.D. failure with Hospitalists hypoxia J44.1 Chronic obstructive pulmonary disease w (acute) exacerbation G35 Multiple sclerosis Office Visit 09/09/2018 [facility] Shelly J44.1 Chronic 8:55a jcarlos Gray NP obstructive Hospitalists pulmonary disease w (acute) exacerbation G35 Multiple sclerosis Office Visit 08/31/2018 1:00p Pulmonology And Karli Marinelli44.9 Chronic [facility]o obstructive [facility] pulmonary disease, unspecified Office Visit 08/22/2018 3:20p [facility] Internal Yves Rogers44.9 [facility] pulmonary disease, unspecified R10.31 Right lower quadrant pain R60.0 Localized edema Office Visit 08/18/2018 1:15p Orthopedic Services Akosua Guzman, M25.552 Pain in left Of C.M.A. M.D. hip Z96.642 Presence of left artificial hip joint M79.652 Pain in left thigh M62.81 Muscle weakness (generalized) M16.12 Unilateral primary osteoarthritis, left hip Office Visit 08/16/2018 2:15p [facility] Garrison Perez G35 Multiple Services Of Oj Mckeon M.D. sclerosis Z79.899 Other prison (current) drug therapy Assessments Date Code Description Provider 02/06/2019 J44.1 Chronic obstructive pulmonary disease Jeni Gardner, N.P. with (acute) exacerbation 01/16/2019 G35 Multiple sclerosis Иван Knaajagruti, MANAGEMENT ARCHITECT 01/11/2019 J44.1 Chronic obstructive pulmonary disease Karli Brito, OLENA with (acute) exacerbat 01/11/2019 J98.4 Other disorders of lung Karli Brito, MANAGEMENT ARCHITECT 01/11/2019 R91.1 Solitary pulmonary nodule Karli Brito, MANAGEMENT ARCHITECT 12/11/2018 J44.1 Chronic obstructive pulmonary disease Laquita Lowe MD with (acute) exacerbat 12/11/2018 J98.4 Other disorders of lung Laquita Lowe MD 12/11/2018 F41.9 Anxiety disorder, unspecified Laquita Lowe MD 11/06/2018 J44.1 Chronic obstructive pulmonary disease Jeni Gardner, N.P. with (acute) exacerbat 11/06/2018 I10 Essential (primary) hypertension Jeni Gardner, N.P. 10/29/2018 J44.1 Chronic obstructive pulmonary disease Grzegorz West MD w (acute) exacerbation 10/29/2018 F41.9 Anxiety disorder, unspecified Grzegorz West MD 10/29/2018 I47.1 Supraventricular tachycardia Grzegorz West MD 10/28/2018 J44.1 Chronic obstructive pulmonary disease Grzegorz West MD w (acute) exacerbation 10/28/2018 G35 Multiple sclerosis Grzegorz West MD 10/28/2018 F41.9 Anxiety disorder, unspecified Grzegorz West MD 10/28/2018 Z86.718 Personal history of other venous Grzegorz West MD thrombosis and embolism 10/28/2018 J96.01 Acute respiratory failure with Grzegorz West MD hypoxia 10/27/2018 R94.31 Abnormal electrocardiogram [ECG] Tamica Moran MD, FACC, [EKG] [facility] 10/27/2018 R06.02 Shortness of breath Shin Dubon M.D., FACC, [facility] 10/27/2018 R07.9 Chest pain, unspecified Shin Dubon M.D., FACC, [facility] 10/27/2018 J44.1 Chronic obstructive pulmonary disease Renetta Wong MD w (acute) exacerbation 10/27/2018 G35 Multiple sclerosis Renetta Wong MD 10/27/2018 F41.9 Anxiety disorder, unspecified Renetta Wong MD 10/27/2018 Z86.718 Personal history of other venous Renetta Wong MD thrombosis and embolism 10/18/2018 Z00.01 Encounter for general adult medical Jeni Gardner, N.P. examination with abnorma 10/18/2018 Z12.31 dings Jeni Gardner, N.P. 10/18/2018 J44.9 Chronic obstructive pulmonary Jeni Cranen, N.P. disease, unspecified 10/18/2018 G35 Multiple sclerosis Jeni Cranen, N.P. 10/18/2018 E78.5 Hyperlipidemia, unspecified Jeni Cranen, N.P. 10/18/2018 M81.0 Age-related osteoporosis without Jeni Varn, N.P. current pathological fractu 10/18/2018 E55.9 Vitamin D deficiency, unspecified Jeni Cranen, N.P. 10/18/2018 Z23 Encounter for immunization Jeni Gardner, N.P. 09/27/2018 J44.1 Chronic obstructive pulmonary disease Shane Wing M.D. with (acute) exacerbat 09/15/2018 J44.9 Chronic obstructive pulmonary Hugo Rogers NP disease, unspecified 09/15/2018 G35 Multiple sclerosis Hugo Rogers NP 09/11/2018 J96.01 Acute respiratory failure with Marilu Nash M.D. hypoxia 09/11/2018 J44.1 Chronic obstructive pulmonary disease Marilu Nash M.D. w (acute) exacerbation 09/10/2018 J96.01 Acute respiratory failure with Marilu Nash M.D. hypoxia 09/10/2018 J44.1 Chronic obstructive pulmonary disease Marilu Nash M.D. w (acute) exacerbation 09/10/2018 G35 Multiple sclerosis Marilu Nash M.D. 09/09/2018 J44.1 Chronic obstructive pulmonary disease Shelly Francois NP w (acute) exacerbation 09/09/2018 G35 Multiple sclerosis Shelly Francois NP 08/31/2018 J44.9 Chronic obstructive pulmonary Karli Brito NP disease, unspecified 08/22/2018 J44.9 Chronic obstructive pulmonary Jeni Gardner N.Patricio disease, unspecified 08/22/2018 R10.31 Right lower quadrant pain Jnei Gardner N.P. 08/22/2018 R60.0 Localized edema Jeni Gardner N.P. 08/18/2018 M25.552 Pain in left hip Akosua Guzman M.D. 08/18/2018 Z96.642 Presence of left artificial hip joint Akosua Guzman M.D. 08/18/2018 M79.652 Pain in left thigh Akosua Guzman M.D. 08/18/2018 M62.81 Muscle weakness (generalized) Akosua Guzman M.D. 08/18/2018 M16.12 Unilateral primary osteoarthritis, Akosua Guzman M.D. left hip 08/16/2018 G35 Multiple sclerosis Garrison Mckeon M.D. 08/16/2018 Z79.899 Other rodent exterminator (current) drug Garrison Mckeon M.D. therapy Plan of Treatment Future Appointment(s):02/21/2019 1:00 pm - Garrison cMkeon M.D. at [facility]02/06/2019 - Jeni Gardner N.P.J44.1 Chronic obstructive pulmonary disease with (acute) exacerbationComments:You are have an exacerbation of your COPD again. I am sending you to the ER. Functional Status Description No Information Available Mental Status Description No Information Available Referrals Refer to Dr Reason for Referral Status Appt Date Created Laquita Lowe MD Patient referred for follow up of COPD Sent 12/11/2018 exacerbation and [facility] hospitalization. [address] [place] [id number] [phone] Shila Caldera, PT, DPT Created [address] [place] [address] [place] [id number] [phone]
--- OUTSIDE RECORDS SUMMARY | 2019-02-06 17:13 | XMS REPORT | Continuity of Care Document ---
:1945 External Reference #:[id number] Author Name Karli Brito NP (transmitted by agent of provider Zoey Middleton) Address [address], [address] [place] [address] Care Team Providers Name Role Phone Jeni Gardner NP - Family Care Team Information Oim Consultant [phone] Problems Active Problems Provider Date Chronic obstructive lung disease Maryjo Joshi M.D., FACP Onset: 12/03/2010 Multiple sclerosis Maryjo Joshi M.D., FACP Onset: 12/03/2010 Tobacco user Maryjo Joshi M.D., FACP Onset: 03/15/2011 Localized, primary osteoarthritis of the Akosua Alba Guzman Onset: 07/07/2016 pelvic region and thigh Chronic [...] couple times a day Smoking Status Reviewed: 01/11/19 Vaping Not sure if it has nicotine, [...] Medications SIG Qnty Indications Ordering Date Provider Doxycycline 1 tab twice daily 14tabs J44.1 Karli 01/11/2019 Monohydrate for 1 week Daryl, INDUSTRIAL DESIGNER 100mg Tablets Prednisone 30mg daily for 1 42tabs J44.1 Karli 12/11/2018 10mg week, 20mg daily Daryl, INDUSTRIAL DESIGNER Tablets for 1 week, 10 mg daily for 1 week Alprazolam take 1 tablet by 30tabs F41.9 Laquita Lowe, 12/11/2018 0.25mg mouth once daily MD Tablets if needed for anxiety maximum daily dose of 1 Cardizem CD 1 by mouth every 90caps Jeni Gardner, 12/05/2018 120mg day N.P. Caps ER 24HR Baclofen 1/2 po qhs prn 45tabs Garrison S. 06/19/2018 10mg spasms Alba Mckeon Tablets Nebulizer use three times a 1units [...] 24HR maximum daily dose of 1 Ipratropium Morrison use in nebulizer 60units Jeni Gardner, 12/10/2010 up to four times a N.P. 0.02% Solution day as needed Albuterol Sulfate 1 vial via 60units J44.9 Hugo Rogers NP 12/10/2010 nebulizer up to 4 (2.5mg/3ML) 0.083% times a day as Nebulizer needed Lyrica take 1 tablet by 90caps Jeni Gardner, 100mg mouth 3 times N.P. Capsules daily. max/day = 3 mdd 3 Aspirin 81 1 by mouth every Unknown 81mg day Tablets Combambrosio Respimat inhale 1 puff by Unknown mouth 4-6 times 20-100mcg/Act daily as needed Aerosol Soma take once a day as Unknown 250mg Tablets needed, History Medications Azithromycin take 2 tablets by 6tabs J44.1 Laquita Lowe, 12/11/2018 - 250mg mouth today then take 12/21/2018 Tablets 1 tablet daily for 4 days Clonazepam 1 tab as needed for 30tabs F41.9 Laquita Lowe, 12/11/2018 - 0.125mg anxiety 12/11/2018 Tablets Dispers Diazepam take one tab one hour 2tabs Garrison Perez 11/28/2018 - 5mg prior to mri then titi Mckeon M.D. 12/10/2018 Tablets take the second tab if needed for claustrophobia mdd 2 Vitamin D3 Ultra one by mouth once 4tabs E55.9 Jeni Gardner, 10/18/2018 - Potency weekly N.P. 12/10/2018 [id number] Tablets Prednisone 1 by mouth every day; 20tabs J44.1 Shane Andrea 09/27/2018 - 20mg take 2 a day for the Alba Wing 10/04/2018 Tablets first 3 days Anoro Ellipta 1 inhalation daily 60units J44.9 Karli 08/31/2018 - OLENA Brito 01/10/2019 62.5-25mcg/Inh Aerosol Prednisone 4 tab daily for 1 49tabs J44.9 Karli 07/26/2018 - 5mg week, then 2 tab OLENA Brito 08/15/2018 Tablets daily for 1 week, then 1 tab daily for 1 week Medications Administered in Office Medication SIG Qnty Indications Ordering Provider Date Prolia Injection, Denosumab, 1MG Hugo Rogers NP 09/15/2018 Injection Prolia Injection, Denosumab, 1MG Nurse Visit A 03/01/2017 Injection Prolia Injection, Denosumab, 1MG Nurse Visit A 09/02/2016 Injection Prolia Injection, Denosumab, 1MG Nurse Visit A 03/05/2016 Injection Immunizations CPT Code Status Date Vaccine Reaction Lot # [id number] Given 10/18/2018 Tetanus And Diptheria (Td) no Immediate [id number] For Adult Use Preservative reaction. Free 24132 Given 02/09/2016 Influenza Virus Vaccine, no reaction noted [id number] Quadrivalent, Split, .... hh Preservative Free 61009 Given 08/12/2015 Pneumococcal Conjugate [id number] Vaccine 13 Valent For Intramuscular Use Q2039 Given 03/05/2015 Flu Vaccine NOS 72356 Given 02/26/2014 Fluzone High Dose Q2037 Given 04/18/2012 Fluvirin Im 3Yrs And Older Q2037 Given 04/18/2012 Fluvirin Im 3Yrs And Older [id number] 81442 Given 04/18/2012 Zoster (Zostavax) [id number] 03313 Given 02/03/2011 Influenza Virus 3Yrs & Over [id number] 95824 Given 03/20/2010 Influenza Virus 3Yrs & Over [id number] 13608 Given 04/24/2009 Administration Swine Flu Shot 67936 Given 04/24/2009 Influenza Virus Vaccine, Pandemic Formulation 14265 Given 02/24/2009 Influenza Virus 3Yrs & Over 22391 Given 02/16/2008 Pneumonia Vaccine 88384 Given 02/16/2008 Pneumonia Vaccine 15109 Given 02/16/2008 Influenza Virus 3Yrs & Over 15825 Given 04/18/2007 Influenza Virus 3Yrs & Over 50354 Given 06/23/2006 Tdap - Tetanus/Diptheria/Acellular Pertussis 91065 Given 06/23/2006 Tdap - Tetanus/Diptheria/Acellular Pertussis 26554 Given 04/04/2006 Influenza Virus 3Yrs & Over Vital Signs Date Vital Result Comment 01/11/2019 2:58pm Height 67 inches 5'7" Weight 122.12 lb Heart Rate 78 /min BP Systolic Sitting 134 mmHg Lue reg cuff BP Diastolic Sitting 80 mmHg Lue reg cuff Respiratory Rate 20 /min O2 % BldC Oximetry 92 % On Ra BMI (Body Mass Index) 19.1 kg/m2 12/11/2018 11:28am Height 67 inches 5'7" Weight 126.00 lb Heart Rate 95 /min BP Systolic Sitting 134 mmHg Lue regular cuff BP Diastolic Sitting 82 mmHg Lue regular cuff Respiratory Rate 16 /min O2 % BldC Oximetry 95 % BMI (Body Mass Index) 19.7 kg/m2 Results Test Date Facility Test Result H/L Range Note CBC Auto 10/27/2018 [facility] White Blood 7.6 10^3/uL Normal 3.5-10.[address] [place] [address] [phone] Red Blood Count 4.94 10^6/uL High 3.70-4.87 [...] Red Blood Cells % 0.0 Inr/Protime 10/27/2018 [facility] Inr 0.92 Normal 0.82-1.[address] [place] [address] [phone] Laboratory test 10/27/2018 [facility] Partial 30.2 Normal 26.0 -38.[address] [place] [address] Time PTT [phone] Comp Metabolic 10/27/2018 [facility] Sodium 142 mmol/L Normal 135-[address] [place] [address] [phone] Potassium 4.0 mmol/L Normal 3.5-5.0 Chloride 105 [...] Egfr 117.0 >60 2 Laboratory test 10/27/2018 [facility] C Reactive 2.20 mg/L Normal <8.[address] [place] [address] [phone] B-Type Natriuretic Peptide BNP 48 pg/mL <=100 Lipid Profile 10/10/2018 [facility] Triglycerides 78 mg/dL 3 (Trig/Chol/HDL) [address] [place] [address] [phone] Cholesterol 294 mg/dL 4 HDL Cholesterol 96.7 mg/dL 5 LDL Cholesterol 182 mg/dL 6 Comp Metabolic 10/10/2018 [facility] Sodium 140 mmol/L Normal 135-[address] [place] [address] [phone] Potassium 4.1 mmol/L Normal 3.5-5.0 Chloride 104 [...] Egfr 110.7 >60 7 Laboratory test 10/10/2018 [facility] Vitamin D 15.6 ng/mL Low 20-50 [address] Total 25(Oh) [place], [place] [id number] [phone] CBC Auto Diff 10/10/2018 [facility] White Blood 10.5 Normal 3.5-10.[address] Count 10^3/[place] [address] [phone] Red Blood Count 4.96 10^6/uL High 3.70-4.87 [...] % 0.0 Influenza A & B 09/09/2018 [facility] Influenza A NEGATIVE Negative [address] [place] [address] [phone] Influenza B Molecular NEGATIVE Negative Laboratory test 09/09/2018 [facility] Creatine 51 U/L Normal 10-223 finding [address] Kinase(CK) [place] [address] [phone] C Reactive Protein < 1.00 mg/L Normal <8.01 B-Type Natriuretic Peptide BNP 42 pg/mL <=100 Comp Metabolic 09/09/2018 [facility] Sodium 140 mmol/L Normal 135-[address] [place] [address] [phone] Potassium 4.5 mmol/L Normal 3.5-5.0 Chloride 104 [...] >60 Egfr 117.0 >60 10 CKMB 09/09/2018 [facility] CKMB 3.0 ng/mL Normal 0.6-6.[address] ng/[place] [address] [phone] Laboratory test 09/09/2018 [facility] Troponin-I 0.01 ng/mL < 0.04 11 finding 101 (TnI) [place] [address] [phone] CBC Auto Diff 09/09/2018 [facility] White 7.8 Normal 3.5-10.[address] Blood 10^3/[place] [address] Count [phone] Red Blood Count 5.26 10^6/uL High 3.70-4.87 [...] Blood Cells % 0.2 Laboratory test 09/09/2018 [facility] Partial 27.4 Normal 26.0 -36.[address] [place] [address] Time PTT [phone] D Dimer Quantitative < 200 ng/mL Normal Less Than 230 12 Inr/Protime 09/09/2018 [facility] Inr 0.94 Normal 0.82-1.[address] [place] [address] [phone] Laboratory test 09/09/2018 [facility] Lactic Acid 1.1 Normal 0.5-2.0 [address] mmol/[place] [address] [phone] 1 Standard intensity warfarin therapeutic range: 2.0-3.0 [...] of hypercalciuria) >80 ng/mL (toxicity possible) 9 Production Cook: [id number] 10 Because ethnic data is not always [...] immediately to secondary confirmatory testing. Using the unrival DxI 800 Access Immunoassay systems, the 99th [...] High intensity warfarin therapeutic range: 2.5-3.5 14 [facility] Severe Sepsis and Septic Shock Management Bundle Measure requires all lactic acids initially measuring >2.0 mmol/L be repeated. Procedures Date Code Description Status 12/08/2018 [id number] Mammogram Completed 12/07/2018 [id number] Bone Mineral Density Test Completed 10/27/2018 89759 ECHO Transthorasic Realtime 2D W Doppler & Color Flow Completed Hosp 09/15/2018 10446 Admin Of Inj Completed 07/19/2018 71477 Polysomnography Sleep Staging 4+ Parameters Completed 08/19/2015 [id number] Bone Mineral Density Test Completed 08/19/2015 [id number] Mammogram Completed 08/22/2013 [id number] Mammogram Completed 11/11/2011 [id number] Colonoscopy Completed 03/18/2011 [id number] Bone Mineral Density Test Completed 02/18/2011 [id number] Mammogram Completed 09/24/2008 [id number] Bone Mineral Density Test Completed 09/06/2007 [id number] Mammogram Completed 04/29/2006 [id number] Mammogram Completed Medical Devices Description No Information Available Encounters Type Date Location Provider Dx Diagnosis Office Visit 12/11/2018 Pulmonology And Yves Baca44.1 Chronic obstructive 11:30a [facility] pulmonary disease w Body Recall Instructor (acute) exacerbation J98.4 Other disorders of lung F41.9 Anxiety disorder, unspecified Office Visit 11/06/2018 4:00p [facility] Internal Yves Rogers44.1 Chronic obstructive Medicine - N.P. pulmonary disease w Ccmob (acute) exacerbation I10 Essential (primary) hypertension Office Visit 10/29/2018 9:43a [facility] Yves Feliciano44.1 Chronic Assoc,jcarlos BECKWITH obstructive Hospitalists pulmonary disease w (acute) exacerbation F41.9 Anxiety disorder, unspecified I47.1 Supraventricular tachycardia Office Visit 10/28/2018 9:43a [facility] Yves Feliciano44.1 Chronic Assoc,jcarlos BECKWITH obstructive Hospitalists pulmonary disease w (acute) exacerbation G35 Multiple sclerosis F41.9 Anxiety disorder, unspecified Z86.718 Personal history of other venous thrombosis and embolism J96.01 Acute respiratory failure with hypoxia Office Visit 10/27/2018 9:43a [facility] Renetta J44.1 Chronic Assoc,pc MD Judith obstructive Hospitalists pulmonary disease w (acute) exacerbation G35 Multiple sclerosis F41.9 Anxiety disorder, unspecified Z86.718 Personal history of other venous thrombosis and embolism Office Visit 09/15/2018 4:00p [facility] Internal Hugo Rogers J44.9 Chronic obstructive Medicine - Ccmob INDUSTRIAL DESIGNER pulmonary disease, unspecified G35 Multiple sclerosis Office Visit 09/11/2018 [facility] Marilu Nash, J96.01 Acute respiratory 8:57a jcarlos Gray M.D. failure with Hospitalists hypoxia J44.1 Chronic obstructive pulmonary disease w (acute) exacerbation Office Visit 09/10/2018 [facility] Marilu Nash J96.01 Acute respiratory 8:56a jcarlos Gray M.D. failure with Hospitalists hypoxia J44.1 Chronic obstructive pulmonary disease w (acute) exacerbation G35 Multiple sclerosis Office Visit 09/09/2018 [facility] Shelly J44.1 Chronic 8:55a Assoc,jcarlos Francois NP obstructive Hospitalists pulmonary disease w (acute) exacerbation G35 Multiple sclerosis Office Visit 08/31/2018 1:00p Pulmonology And Karli J44.9 Chronic Sleep Services Of OLENA Brito obstructive Body Recall Instructor pulmonary disease, unspecified Office Visit 08/22/2018 3:20p [facility] Internal Yves Rogers44.9 Chronic Medicine - Ccmob N.P. obstructive pulmonary disease, unspecified R10.31 Right lower quadrant pain R60.0 Localized edema Office Visit 08/18/2018 1:15p Orthopedic Services Akosua Guzman M25.552 Pain in left Of C.M.A. M.D. hip Z96.642 Presence of left artificial hip joint M79.652 Pain in left thigh M62.81 Muscle weakness (generalized) M16.12 Unilateral primary osteoarthritis, left hip Office Visit 08/16/2018 2:15p [facility] Garrison S. G35 Multiple Services Of [facility] Alba Mckeon sclerosis Z79.899 Other roasterman (current) drug therapy Office Visit 07/26/2018 11:00a Pulmonology And Sleep Laquita Lowe, R06.83 Snoring Services [facility] J44.9 Chronic obstructive pulmonary disease, unspecified Assessments Date Code Description Provider 01/11/2019 J44.1 Chronic obstructive pulmonary disease Karli Brito NP with (acute) exacerbat 01/11/2019 J98.4 Other disorders of lung Karli Brito NP 12/11/2018 J44.1 Chronic obstructive pulmonary disease Laquita [...] failure with Grzegorz West MD hypoxia 10/27/2018 R06.02 Shortness of breath Shin Dubon M.D., [facility] 10/27/2018 R07.9 Chest pain, unspecified Shin Dubon M.D., [facility] 10/27/2018 J44.1 Chronic obstructive pulmonary disease Renetta [...] disease, unspecified 10/18/2018 G35 Multiple sclerosis Jeni Varn, N.P. 10/18/2018 E78.5 Hyperlipidemia, unspecified Jeni Varn, N.P. 10/18/2018 M81.0 Age-related osteoporosis without Jeni Varn, N.P. current pathological fractu 10/18/2018 E55.9 Vitamin D deficiency, unspecified Jeni Varn, N.P. 10/18/2018 Z23 Encounter for immunization Jeni Gardner, N.P. 09/27/2018 J44.1 Chronic obstructive pulmonary disease Shane Wing M.D. with (acute) exacerbat 09/15/2018 J44.9 Chronic obstructive pulmonary Hugo Sue, INDUSTRIAL DESIGNER disease, unspecified 09/15/2018 G35 Multiple sclerosis Hugofelipe Rogers, INDUSTRIAL DESIGNER 09/11/2018 J96.01 Acute respiratory failure with Marilu Nash M.D. hypoxia 09/11/2018 J44.1 Chronic obstructive pulmonary disease Marilu Nash M.D. w (acute) exacerbation 09/10/2018 J96.01 Acute respiratory failure with Marilu Nash M.D. hypoxia 09/10/2018 J44.1 Chronic obstructive pulmonary disease Marilu Nash M.D. w (acute) exacerbation 09/10/2018 G35 Multiple sclerosis Marilu Nash M.D. 09/09/2018 J44.1 Chronic obstructive pulmonary disease Shelly OLENA Francois w (acute) exacerbation 09/09/2018 G35 Multiple sclerosis Shelly OLENA Francois 08/31/2018 J44.9 Chronic obstructive pulmonary Karli Brito NP disease, unspecified 08/22/2018 J44.9 Chronic obstructive pulmonary Jeni Varn, N.P. disease, unspecified 08/22/2018 R10.31 Right lower quadrant pain Jeni Kendra, N.P. 08/22/2018 R60.0 Localized edema Jeni Kendra, N.P. 08/18/2018 M25.552 Pain in left hip Akosua Guzman M.D. 08/18/2018 Z96.642 Presence of left artificial hip joint Akosua Guzman M.D. 08/18/2018 M79.652 Pain in left thigh Akosua Guzman M.D. 08/18/2018 M62.81 Muscle weakness (generalized) Akosua Guzman M.D. 08/18/2018 M16.12 Unilateral primary osteoarthritis, Akosua Guzman M.D. left hip 08/16/2018 G35 Multiple sclerosis Garrison Mckeon M.D. 08/16/2018 Z79.899 Other roasterman (current) drug Garrison Mckeon M.D. therapy 07/26/2018 R06.83 Snoring Laquita Lowe MD 07/26/2018 J44.9 Chronic obstructive pulmonary Laquita Lowe MD disease, unspecified 07/19/2018 R06.83 Snoring Laquita Lowe MD Plan of Treatment Future Appointment(s):02/01/2019 3:00 pm - Karli Brito NP at [facility]01/16/2019 2:30 pm - Иван Sheffield NP at [place] [facility]01/11/2019 - Karli Brito NPJ44.1 Chronic obstructive pulmonary disease with (acute) exacerbatNew Medication: Doxycycline Monohydrate 100 mg - 1 tab twice daily for 1 weekNew Xrays:Chest PA & Lat 2 VWS, Ordered: 01/11/19Follow up:3 weeks (CT prior)Recommendations:I am sending a prescription for prednisone and an antibiotic. If your symptoms do not improve with treatment, please present to the emergency room for evaluation.J98.4 Other disorders of lung Functional Status Description No Information Available Mental Status Description No Information Available Referrals Refer to Reason for Referral Status Appt Date Created Laquita Lowe MD Patient referred for follow up of COPD Sent 12/11/2018 exacerbation and [facility] hospitalization. [address] [place] [address] [phone] Shila Caldera, PT, DPT Created [address] [place] [address] [place] [phone]
--- OUTSIDE RECORDS SUMMARY | 2019-02-06 17:13 | XMS REPORT | Continuity of Care Document ---
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 [phone] Problems Active Problems Provider Date Chronic obstructive [...] couple times a day Smoking Status Reviewed: 01/16/19 Vaping Not sure if it has nicotine, [...] Karli 01/11/2019 Monohydrate for 1 week Daryl, SAP HANA ARCHITECT 100mg Tablets Prednisone 30mg daily for 1 42tabs J44.1 Karli 12/11/2018 10mg week, 20mg daily Daryl, SAP HANA ARCHITECT Tablets for 1 week, 10 mg daily [...] 24HR maximum daily dose of 1 Ipratropium [place] use in nebulizer 60units Jeni Gardner, 12/10/2010 [...] as Unknown 250mg Tablets needed, History Medications Aubagio G35 Garrison Perez 01/16/2019 - 7mg Tablets Alba Mckeon 01/16/2019 Azithromycin take 2 tablets by 6tapauline Marinelli44.1 Laquita Lowe, 12/11/2018 - 250mg mouth today [...] Gardner, 10/18/2018 - Potency weekly N.P. 12/10/2018 [id number] Tablets Prednisone 1 by mouth every day; [...] Code Status Date Vaccine Reaction Lot # [id number] Given 10/18/2018 Tetanus And Diptheria (Td) no Immediate [id number] For Adult Use Preservative reaction. Free 14015 Given 02/09/2016 Influenza Virus Vaccine, no reaction noted [id number] Quadrivalent, Split, .... hh Preservative Free 30243 Given 08/12/2015 Pneumococcal Conjugate [id number] Vaccine 13 Valent For Intramuscular Use Q2039 Given 03/05/2015 Flu Vaccine NOS 66708 Given 02/26/2014 Fluzone High Dose Q2037 Given 04/18/2012 Fluvirin Im 3Yrs And Older Q2037 Given 04/18/2012 Fluvirin Im 3Yrs And Older [id number] 81866 Given 04/18/2012 Zoster (Zostavax) [id number] 26941 Given 02/03/2011 Influenza Virus 3Yrs & Over [id number] 39098 Given 03/20/2010 Influenza Virus 3Yrs & Over [id number] 59132 Given 04/24/2009 Administration Swine Flu Shot 26335 Given 04/24/2009 Influenza Virus Vaccine, Pandemic Formulation 99299 Given 02/24/2009 Influenza Virus 3Yrs & Over 37083 Given 02/16/2008 Pneumonia Vaccine 05884 Given 02/16/2008 Pneumonia Vaccine 64795 Given 02/16/2008 Influenza Virus 3Yrs & Over 53756 Given 04/18/2007 Influenza Virus 3Yrs & Over 18966 Given 06/23/2006 Tdap - Tetanus/Diptheria/Acellular Pertussis 76474 Given 06/23/2006 Tdap - Tetanus/Diptheria/Acellular Pertussis 45336 Given 04/04/2006 Influenza Virus 3Yrs & Over Vital Signs Date Vital Result Comment 01/16/2019 2:47pm Height 67 inches 5'7" Weight 125.00 lb Heart Rate 70 /min BP Systolic 130 mmHg BP Diastolic 78 mmHg BMI (Body Mass Index) 19.6 kg/m2 01/11/2019 2:58pm Height 67 inches 5'7" Weight 122.12 lb Heart Rate 78 /min BP Systolic Sitting 134 mmHg Lue reg cuff BP Diastolic Sitting 80 mmHg Lue reg cuff Respiratory Rate 20 /min O2 % BldC Oximetry 92 % On Ra BMI (Body Mass Index) 19.1 kg/m2 Results Test Date Facility Test Result H/L Range Note CBC Auto 10/27/2018 [facility] White Blood 7.6 10^3/uL Normal 3.5-10.[address] [place] [address] [phone] Red Blood Count 4.94 10^6/uL High 3.70-4.87 [...] Red Blood Cells % 0.0 Inr/Protime 10/27/2018 [facility] Inr 0.92 Normal 0.82-1.[address] [place] [address] [phone] Laboratory test 10/27/2018 [facility] Partial 30.2 Normal 26.0 -38.[address] [address] Time PTT [phone] Comp Metabolic 10/27/2018 [facility] Sodium 142 mmol/L Normal 135-[address] [place] [address] [phone] Potassium 4.0 mmol/L Normal 3.5-5.0 Chloride 105 [...] Egfr 117.0 >60 2 Laboratory test 10/27/2018 [facility] C Reactive 2.20 mg/L Normal <8.[address] [place] [address] [phone] B-Type Natriuretic Peptide BNP 48 pg/mL <=100 CBC Auto 10/10/2018 [facility] White Blood 10.5 10^3/uL Normal 3.5-10.[address] [place] [address] [phone] Red Blood Count 4.96 10^6/uL High 3.70-4.87 [...] Blood Cells % 0.0 Laboratory test 10/10/2018 [facility] Vitamin D 15.6 ng/mL Low 20-50 3 finding [address] [facility] Total 25(Oh) [place] [address] [phone] Comp Metabolic 10/10/2018 [facility] Sodium 140 mmol/L Normal 135-145 Panel [address] [place] [address] [phone] Potassium 4.1 mmol/L Normal 3.5-5.0 Chloride 104 [...] Egfr Non- 91.5 >60 Egfr 110.7 >60 4 Lipid Profile 10/10/2018 [facility] Triglycerides 78 mg/dL 5 (Trig/Chol/HDL) [address] [place] [address] [phone] Cholesterol 294 mg/dL 6 HDL Cholesterol 96.7 mg/dL 7 LDL Cholesterol 182 mg/dL 8 Influenza A & B 09/09/2018 [facility] Influenza A NEGATIVE Negative [address] [place] [address] [phone] Influenza B Molecular NEGATIVE Negative Laboratory test 09/09/2018 [facility] Creatine 51 U/L Normal 10-223 finding 101 Kinase(CK) [place] [address] [phone] C Reactive Protein < 1.00 mg/L Normal <8.01 B-Type Natriuretic Peptide BNP 42 pg/mL <=100 Comp Metabolic 09/09/2018 [facility] Sodium 140 mmol/L Normal 135-145 Panel 101 [place] [address] [phone] Potassium 4.5 mmol/L Normal 3.5-5.0 Chloride 104 [...] >60 Egfr 117.0 >60 10 CKMB 09/09/2018 [facility] CKMB 3.0 ng/mL Normal 0.6-6.[address] ng/[place] [address] [phone] Laboratory test 09/09/2018 [facility] Troponin-I 0.01 ng/mL < 0.04 11 finding 101 (TnI) [place] [address] [phone] CBC Auto Diff 09/09/2018 [facility] White 7.8 Normal 3.5-10.[address] Blood 10^3/[place] [address] Count [phone] Red Blood Count 5.26 10^6/uL High 3.70-4.87 [...] Blood Cells % 0.2 Laboratory test 09/09/2018 [facility] Partial 27.4 Normal 26.0 -36.[address] [address] Time PTT [phone] D Dimer Quantitative < 200 ng/mL Normal Less Than 230 12 Inr/Protime 09/09/2018 [facility] Inr 0.94 Normal 0.82-1.[address] [place] [address] [phone] Laboratory test 09/09/2018 [facility] Lactic Acid 1.1 Normal 0.5-2.0 [address] mmol/L [place], [place] [address] [phone] 1 Standard intensity warfarin therapeutic range: 2.0-3.0 [...] 5 Kidney failure <15 (or dialysis) 3 Total 25-Hydroxyvitamin D2 and D3 (25-OH-VitD) <10 ng/mL (severe deficiency) 10-19 ng/mL (mild to moderate deficiency) 20-50 ng/mL (optimum levels) 51-80 ng/mL (increased risk of hypercalciuria) >80 ng/mL (toxicity possible) 4 Because ethnic data is not always [...] 5 Kidney failure <15 (or dialysis) 5 Desirable: <150 Borderline High: 150-199 High: 200-499 Very High: >500 6 Desirable: <200 Borderline High: 200-239 High: >239 7 Low: <40 Desirable: 40-60 High: >60 8 Desirable: <100 Near Optimal: 100-129 Borderline High: 130-159 High: 160-189 Very High: >189 9 Circular Ripsaw Operator: [id number] 10 Because ethnic data is not always [...] immediately to secondary confirmatory testing. Using the [employer] DxI 800 Access Immunoassay systems, the 99th [...] High intensity warfarin therapeutic range: 2.5-3.5 14 [facility] Severe Sepsis and Septic Shock Management Bundle Measure requires all lactic acids initially measuring >2.0 mmol/L be repeated. Procedures Date Code Description Status 12/08/2018 [id number] Mammogram Completed 12/07/2018 [id number] Bone Mineral Density Test Completed 10/27/2018 36354 ECHO Transthorasic Realtime 2D W Doppler & Color Flow Completed Hosp 09/15/2018 69123 Admin Of Inj Completed 07/19/2018 02963 Polysomnography Sleep Staging 4+ Parameters Completed 08/19/2015 [id number] Bone Mineral Density Test Completed 08/19/2015 [id number] Mammogram Completed 08/22/2013 [id number] Mammogram Completed 11/11/2011 [id number] Colonoscopy Completed 03/18/2011 [id number] Bone Mineral Density Test Completed 02/18/2011 [id number] Mammogram Completed 09/24/2008 [id number] Bone Mineral Density Test Completed 09/06/2007 [id number] Mammogram Completed 04/29/2006 [id number] Mammogram Completed Medical Devices Description No Information Available Encounters Type Date Location Provider Dx Diagnosis Office Visit 01/11/2019 [facility] Karli J44.1 Chronic obstructive 3:00p [facility] pulmonary disease w Ob Gyn Physician Assistant (acute) exacerbation J98.4 Other disorders of lung R91.1 Solitary pulmonary nodule Office Visit 12/11/2018 11:30a [facility] Laquita J44.1 Chronic [facility] obstructive Ob Gyn Physician Assistant pulmonary disease w (acute) exacerbation J98.4 Other disorders of lung F41.9 Anxiety disorder, unspecified Office Visit 11/06/2018 4:00p [facility] Internal Yves Rogers44.1 Chronic obstructive Medicine - N.P. pulmonary disease w Ccmob (acute) exacerbation I10 Essential (primary) hypertension Office Visit 10/29/2018 9:43a [facility] Yves Feliciano44.1 Chronic Assoc,jcarlos BECKWITH obstructive Hospitalists pulmonary disease w (acute) exacerbation F41.9 Anxiety disorder, unspecified I47.1 Supraventricular tachycardia Office Visit 10/28/2018 9:43a [facility] Yves Feliciano44.1 Chronic Assocjcarlos MD obstructive Hospitalists pulmonary disease w (acute) exacerbation G35 Multiple sclerosis F41.9 Anxiety disorder, unspecified Z86.718 Personal history of other venous thrombosis and embolism J96.01 Acute respiratory failure with hypoxia Office Visit 10/27/2018 9:43a [facility] Renetta J44.1 Chronic Assoc,jcarlos Wong MD obstructive Hospitalists pulmonary disease w (acute) exacerbation G35 Multiple sclerosis F41.9 Anxiety disorder, unspecified Z86.718 Personal history of other venous thrombosis and embolism Office Visit 09/15/2018 4:00p [facility] Internal Yves Mays44.9 Chronic obstructive Medicine - Ccmob SAP HANA ARCHITECT pulmonary disease, unspecified G35 Multiple sclerosis Office Visit 09/11/2018 [facility] Marilu Nash, J96.01 Acute respiratory 8:57a Assocjcarlos M.D. failure with Hospitalists hypoxia J44.1 Chronic obstructive pulmonary disease w (acute) exacerbation Office Visit 09/10/2018 [facility] Marilu Nash, J96.01 Acute respiratory 8:56a jcarlos Gray M.D. failure with Hospitalists hypoxia J44.1 Chronic obstructive pulmonary disease w (acute) exacerbation G35 Multiple sclerosis Office Visit 09/09/2018 [facility] Shelly J44.1 Chronic 8:55a Assjcarlos cox NP obstructive Hospitalists pulmonary disease w (acute) exacerbation G35 Multiple sclerosis Office Visit 08/31/2018 1:00p [facility] Karli Marinelli44.9 Chronic [facility] obstructive [facility] pulmonary disease, unspecified Office Visit 08/22/2018 3:20p [facility] Internal Yves Rogers44.9 Chronic Medicine - Ccmob N.P. obstructive pulmonary disease, unspecified R10.31 Right lower quadrant pain R60.0 Localized edema Office Visit 08/18/2018 1:15p [facility] Akosua Guzman M25.552 Pain in left Of C.M.A. M.D. hip Z96.642 Presence of left artificial hip joint M79.652 Pain in left thigh M62.81 Muscle weakness (generalized) M16.12 Unilateral primary osteoarthritis, left hip Office Visit 08/16/2018 2:15p [facility] SWendy G35 [facility] Alba Mckeon sclerosis Z79.899 Other jail (current) drug therapy Office Visit 07/26/2018 11:00a [facility] Laquita Lowe, R06.83 [facility] J44.9 Chronic obstructive pulmonary disease, unspecified Assessments Date Code Description Provider 01/16/2019 G35 Multiple sclerosis Иван Sheffield NP 01/11/2019 J44.1 Chronic obstructive pulmonary disease Karli Brito NP with (acute) exacerbat 01/11/2019 J98.4 Other disorders of lung Karli Brito NP 01/11/2019 R91.1 Solitary pulmonary nodule Karli Brito NP 12/11/2018 J44.1 Chronic obstructive pulmonary disease Laquita Lowe MD with (acute) exacerbat 12/11/2018 J98.4 Other disorders of lung Laquita Mynor, MD 12/11/2018 F41.9 Anxiety disorder, unspecified Laquita [...] hypoxia 10/27/2018 R06.02 Shortness of breath Shin uDbon M.D., [facility] 10/27/2018 R07.9 Chest pain, unspecified Shin Dubon M.D., [facility] 10/27/2018 J44.1 Chronic obstructive pulmonary disease Renetta Wong MD w (acute) exacerbation 10/27/2018 G35 Multiple sclerosis Renetta Wong MD 10/27/2018 F41.9 Anxiety disorder, unspecified Renetta Wong MD 10/27/2018 Z86.718 Personal history of other venous Renetta Wong MD thrombosis and embolism 10/18/2018 Z00.01 Encounter for general adult medical Jeni Gardner N.P. examination with abnorma 10/18/2018 Z12.31 dings Jeni Gardner, N.P. 10/18/2018 J44.9 Chronic obstructive pulmonary Jeni Gardner, N.P. disease, unspecified 10/18/2018 G35 Multiple sclerosis Jeni Gardner, N.P. 10/18/2018 E78.5 Hyperlipidemia, unspecified Jeni Gardner, N.P. 10/18/2018 M81.0 Age-related osteoporosis without Jeni Varn, N.P. current pathological fractu 10/18/2018 E55.9 Vitamin D deficiency, unspecified Jeni Cranen, N.P. 10/18/2018 Z23 Encounter for immunization Jeni Gardner, N.P. 09/27/2018 J44.1 Chronic obstructive pulmonary disease Shane Wing M.D. with (acute) exacerbat 09/15/2018 J44.9 Chronic obstructive pulmonary Hugo Sue, SAP HANA ARCHITECT disease, unspecified 09/15/2018 G35 Multiple sclerosis Hugo Sue, SAP HANA ARCHITECT 09/11/2018 J96.01 Acute respiratory failure with Marilu Nash M.D. hypoxia 09/11/2018 J44.1 Chronic obstructive pulmonary disease Marilu Nash M.D. w (acute) exacerbation 09/10/2018 J96.01 Acute respiratory failure with Marilu Nash M.D. hypoxia 09/10/2018 J44.1 Chronic obstructive pulmonary disease Marilu Nash M.D. w (acute) exacerbation 09/10/2018 G35 Multiple sclerosis Marilu Nash M.D. 09/09/2018 J44.1 Chronic obstructive pulmonary disease Shelly Alessandro, [facility] w (acute) exacerbation 09/09/2018 G35 Multiple sclerosis Shelly Alessandro, SAP HANA ARCHITECT 08/31/2018 J44.9 Chronic obstructive pulmonary Karli Brito NP disease, unspecified 08/22/2018 J44.9 Chronic obstructive pulmonary Jeni Gardner, N.P. disease, unspecified 08/22/2018 R10.31 Right lower quadrant pain Jeni Gardner, N.P. 08/22/2018 R60.0 Localized edema Jein Gardner, N.P. 08/18/2018 M25.552 Pain in left hip Akosua Guzman M.D. 08/18/2018 Z96.642 Presence of left artificial hip joint Akosua Guzman M.D. 08/18/2018 M79.652 Pain in left thigh Akosua Guzman M.D. 08/18/2018 M62.81 Muscle weakness (generalized) Akosua Guzman M.D. 08/18/2018 M16.12 Unilateral primary osteoarthritis, Akosua Guzman M.D. left hip 08/16/2018 G35 Multiple sclerosis Garrison Mckeon M.D. 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 therapy 07/26/2018 R06.83 Snoring Laquita Lowe MD 07/26/2018 J44.9 Chronic obstructive pulmonary Laquita Lowe MD disease, unspecified 07/19/2018 R06.83 Snoring Laquita Lowe MD Plan of Treatment Future Appointment(s):02/21/2019 1:00 pm - Garrison Mckeon M.D. at [facility]02/01/2019 3:00 pm - Karli Brito NP at [facility]01/16/2019 - Иван Sheffield [id number] Multiple sclerosisNew Medication:Aubagio 7 mg -Follow up:1-2 MONTHS Functional Status Description No Information Available Mental Status Description No Information Available Referrals Refer to Reason for Referral Status Appt Date Created Laquita Lowe MD Patient referred for follow up of COPD Sent 12/11/2018 exacerbation and [facility] [place]. [address] [facility] [address] [place] [address] [phone] Shila Caldera, PT, DPT Created [address] [place] [address] [place] [id number] [phone]
--- OUTSIDE RECORDS SUMMARY | 2019-02-06 17:13 | XMS REPORT | Continuity of Care Document ---
:1945 External Reference #:[id number] Author Name Karli Brito NP (transmitted by agent of provider Zoey Middleton) Address [address], [address] [place] [address] Care Team Providers Name Role Phone Jeni Gardner NP - Family Care Team Information Propagator [phone] Problems Active Problems Provider Date Chronic obstructive [...] Karli 01/11/2019 Monohydrate for 1 week Daryl, GRAPPLE OPERATOR 100mg Tablets Prednisone 30mg daily for 1 42tabs J44.1 Karli 12/11/2018 10mg week, 20mg daily Daryl, GRAPPLE OPERATOR Tablets for 1 week, 10 mg daily [...] HCL ER take 1 capsule by 90caps eJni Gardner, 02/22/2011 mouth once daily N.P. 150mg Caps ER 24HR maximum daily dose of 1 Ipratropium Shirley use in nebulizer 60units Jeni Gardner, 12/10/2010 [...] Gardner, 10/18/2018 - Potency weekly N.P. 12/10/2018 [id number] Tablets Prednisone 1 by mouth every day; [...] Code Status Date Vaccine Reaction Lot # [id number] Given 10/18/2018 Tetanus And Diptheria (Td) no Immediate [id number] For Adult Use Preservative reaction. Free 94046 Given 02/09/2016 Influenza Virus Vaccine, no reaction noted [id number] Quadrivalent, Split, .... hh Preservative Free 52794 Given 08/12/2015 Pneumococcal Conjugate [id number] Vaccine 13 Valent For Intramuscular Use Q2039 Given 03/05/2015 Flu Vaccine NOS 14149 Given 02/26/2014 Fluzone High Dose Q2037 Given 04/18/2012 Fluvirin Im 3Yrs And Older Q2037 Given 04/18/2012 Fluvirin Im 3Yrs And Older [id number] 31506 Given 04/18/2012 Zoster (Zostavax) [id number] 49698 Given 02/03/2011 Influenza Virus 3Yrs & Over [id number] 50481 Given 03/20/2010 Influenza Virus 3Yrs & Over [id number] 56355 Given 04/24/2009 Administration Swine Flu Shot 20841 Given 04/24/2009 Influenza Virus Vaccine, Pandemic Formulation 54874 Given 02/24/2009 Influenza Virus 3Yrs & Over 33559 Given 02/16/2008 Pneumonia Vaccine 47846 Given 02/16/2008 Pneumonia Vaccine 97287 Given 02/16/2008 Influenza Virus 3Yrs & Over 38958 Given 04/18/2007 Influenza Virus 3Yrs & Over 29265 Given 06/23/2006 Tdap - Tetanus/Diptheria/Acellular Pertussis 56312 Given 06/23/2006 Tdap - Tetanus/Diptheria/Acellular Pertussis 76367 Given 04/04/2006 Influenza Virus 3Yrs & Over [...] Result H/L Range Note CBC Auto 10/27/2018 [facility] White Blood 7.6 10^3/uL Normal 3.5-10.[address] [place] [address] [phone] Red Blood Count 4.94 10^6/uL High 3.70-4.87 [...] Red Blood Cells % 0.0 Inr/Protime 10/27/2018 [facility] Inr 0.92 Normal 0.82-1.[address] [place] [address] [phone] Laboratory test 10/27/2018 [facility] Partial 30.2 Normal 26.0 -38.[address] [place] [address] Time PTT [phone] Comp Metabolic 10/27/2018 [facility] Sodium 142 mmol/L Normal 135-[address] [place] [address] [phone] Potassium 4.0 mmol/L Normal 3.5-5.0 Chloride 105 [...] Egfr 117.0 >60 2 Laboratory test 10/27/2018 [facility] C Reactive 2.20 mg/L Normal <8.[address] [place] [address] [phone] B-Type Natriuretic Peptide BNP 48 pg/mL <=100 Lipid Profile 10/10/2018 [facility] Triglycerides 78 mg/dL 3 (Trig/Chol/HDL) [address] [place] [address] [phone] Cholesterol 294 mg/dL 4 HDL Cholesterol 96.7 mg/dL 5 LDL Cholesterol 182 mg/dL 6 Comp Metabolic 10/10/2018 [facility] Sodium 140 mmol/L Normal 135-[address] [place] [address] [phone] Potassium 4.1 mmol/L Normal 3.5-5.0 Chloride 104 [...] Egfr 110.7 >60 7 Laboratory test 10/10/2018 [facility] Vitamin D 15.6 ng/mL Low 20-50 [address] Total 25(Oh) [place], [place] [id number] [phone] CBC Auto Diff 10/10/2018 [facility] White Blood 10.5 Normal 3.5-10.[address] Count 10^3/[place] [address] [phone] Red Blood Count 4.96 10^6/uL High 3.70-4.87 [...] % 0.0 Influenza A & B 09/09/2018 [facility] Influenza A NEGATIVE Negative [address] [place] [address] [phone] Influenza B Molecular NEGATIVE Negative Laboratory test 09/09/2018 [facility] Creatine 51 U/L Normal 10-223 finding 101 Kinase(CK) [place] [address] [phone] C Reactive Protein < 1.00 mg/L Normal <8.01 B-Type Natriuretic Peptide BNP 42 pg/mL <=100 Comp Metabolic 09/09/2018 [facility] Sodium 140 mmol/L Normal 135-[address] [place] [address] [phone] Potassium 4.5 mmol/L Normal 3.5-5.0 Chloride 104 [...] >60 Egfr 117.0 >60 10 CKMB 09/09/2018 [facility] CKMB 3.0 ng/mL Normal 0.6-6.[address] ng/[place] [address] [phone] Laboratory test 09/09/2018 [facility] Troponin-I 0.01 ng/mL < 0.04 11 finding 101 (TnI) [place] [address] [phone] CBC Auto Diff 09/09/2018 [facility] White 7.8 Normal 3.5-10.[address] Blood 10^3/[place] [address] Count [phone] Red Blood Count 5.26 10^6/uL High 3.70-4.87 [...] Blood Cells % 0.2 Laboratory test 09/09/2018 [facility] Partial 27.4 Normal 26.0 -36.[address] [place] [address] Time PTT [phone] D Dimer Quantitative < 200 ng/mL Normal Less Than 230 12 Inr/Protime 09/09/2018 [facility] Inr 0.94 Normal 0.82-1.[address] [place] [address] [phone] Laboratory test 09/09/2018 [facility] Lactic Acid 1.1 Normal 0.5-2.0 [address] mmol/[place] [address] [phone] 1 Standard intensity warfarin therapeutic range: 2.0-3.0 [...] of hypercalciuria) >80 ng/mL (toxicity possible) 9 L[employer]arer: [id number] 10 Because ethnic data is not always [...] immediately to secondary confirmatory testing. Using the [facility] DxI 800 Access Immunoassay systems, the 99th [...] High intensity warfarin therapeutic range: 2.5-3.5 14 [facility] Severe Sepsis and Septic Shock Management Bundle Measure requires all lactic acids initially measuring >2.0 mmol/L be repeated. Procedures Date Code Description Status 12/08/2018 [id number] Mammogram Completed 12/07/2018 [id number] Bone Mineral Density Test Completed 10/27/2018 45802 ECHO Transthorasic Realtime 2D W Doppler & Color Flow Completed Hosp 09/15/2018 76265 Admin Of Inj Completed 07/19/2018 54266 Polysomnography Sleep Staging 4+ Parameters Completed 08/19/2015 [id number] Bone Mineral Density Test Completed 08/19/2015 [id number] Mammogram Completed 08/22/2013 [id number] Mammogram Completed 11/11/2011 [id number] Colonoscopy Completed 03/18/2011 [id number] Bone Mineral Density Test Completed 02/18/2011 [id number] Mammogram Completed 09/24/2008 [id number] Bone Mineral Density Test Completed 09/06/2007 [id number] Mammogram Completed 04/29/2006 [id number] Mammogram Completed Medical Devices Description No Information Available Encounters Type Date Location Provider Dx Diagnosis Office Visit 01/11/2019 [facility] Karli J44.1 Chronic obstructive 3:00p [facility] pulmonary disease w [place] (acute) exacerbation J98.4 Other disorders of lung Office Visit 12/11/2018 11:30a Pulmonology And Laquita J44.1 Chronic [facility] obstructive [place] pulmonary disease w (acute) exacerbation J98.4 Other disorders of lung F41.9 Anxiety disorder, unspecified Office Visit 11/06/2018 4:00p [facility] Internal Yves Rogers44.1 Chronic obstructive Medicine - N.P. pulmonary disease w Ccmob (acute) exacerbation I10 Essential (primary) hypertension Office Visit 10/29/2018 9:43a [facility] Yves Feliciano44.1 Chronic Assoc,jcarlos [facility] obstructive Hospitalists pulmonary disease w (acute) exacerbation F41.9 Anxiety disorder, unspecified I47.1 Supraventricular tachycardia Office Visit 10/28/2018 9:43a [facility] Yves Feliciano44.1 Chronic Assoc,jcarlos [facility]ECK[place] obstructive Hospitalists pulmonary disease w (acute) exacerbation G35 Multiple sclerosis F41.9 Anxiety disorder, unspecified Z86.718 Personal history of other venous thrombosis and embolism J96.01 Acute respiratory failure with hypoxia Office Visit 10/27/2018 9:43a [facility] Renetta J44.1 Chronic Assoc,jcarlos Wong MD obstructive Hospitalists pulmonary disease w (acute) exacerbation G35 Multiple sclerosis F41.9 Anxiety disorder, unspecified Z86.718 Personal history of other venous thrombosis and embolism Office Visit 09/15/2018 4:00p [facility] Internal Yves Mays44.9 Chronic obstructive Medicine - Ccmob GRAPPLE OPERATOR pulmonary disease, unspecified G35 Multiple sclerosis Office Visit 09/11/2018 [facility] Marilu Nash, J96.01 Acute respiratory 8:57a Assocjcarlos M.D. failure with Hospitalists hypoxia J44.1 Chronic obstructive pulmonary disease w (acute) exacerbation Office Visit 09/10/2018 [facility] Marilu Nash, J96.01 Acute respiratory 8:56a jcarlos Gray M.D. failure with Hospitalists hypoxia J44.1 Chronic obstructive pulmonary disease w (acute) exacerbation G35 Multiple sclerosis Office Visit 09/09/2018 [facility] Shelly J44.1 Chronic 8:55a Assocjcarlos NP obstructive Hospitalists pulmonary disease w (acute) exacerbation G35 Multiple sclerosis Office Visit 08/31/2018 1:00p [facility] Karli Marinelli44.9 Chronic [facility] obstructive [place] pulmonary disease, unspecified Office Visit 08/22/2018 3:20p [facility] Internal Yves Rogers44.9 Chronic Medicine - Ccmob N.P. obstructive pulmonary disease, unspecified R10.31 Right lower quadrant pain R60.0 Localized edema Office Visit 08/18/2018 1:15p [facility] Akosua Guzman M25.552 Pain in left Of C.M.A. M.D. hip Z96.642 Presence of left artificial hip joint M79.652 Pain in left thigh M62.81 Muscle weakness (generalized) M16.12 Unilateral primary osteoarthritis, left hip Office Visit 08/16/2018 2:15p [facility] Garrison Perez G35 [facility] Alba Mckeon sclerosis Z79.899 Other alf (current) drug therapy Office Visit 07/26/2018 11:00a [facility] Laquita Lowe, R06.83 [facility] MD Marinelli44.9 Chronic obstructive pulmonary disease, unspecified Assessments Date [...] R06.02 Shortness of breath Shin Dubon M.D., [facility] 10/27/2018 R07.9 Chest pain, unspecified Shin Dubon M.D., [facility] 10/27/2018 J44.1 Chronic obstructive pulmonary disease [...] 10/18/2018 E55.9 Vitamin D deficiency, unspecified Jeni Gardner, N.P. 10/18/2018 Z23 Encounter for immunization Jeni Gardner, N.P. 09/27/2018 J44.1 Chronic obstructive pulmonary disease Shane Wing M.D. with (acute) exacerbat 09/15/2018 J44.9 Chronic obstructive pulmonary Hugofelipe Rogers, GRAPPLE OPERATOR disease, unspecified 09/15/2018 G35 Multiple sclerosis Hugo Sue, GRAPPLE OPERATOR 09/11/2018 J96.01 Acute respiratory failure with Marilu Nash M.D. hypoxia 09/11/2018 J44.1 Chronic obstructive pulmonary disease Marilu Nash M.D. w (acute) exacerbation 09/10/2018 J96.01 Acute respiratory failure with Marilu Nash M.D. hypoxia 09/10/2018 J44.1 Chronic obstructive pulmonary disease Marilu Nash M.D. w (acute) exacerbation 09/10/2018 G35 Multiple sclerosis Marilu Nash M.D. 09/09/2018 J44.1 Chronic obstructive pulmonary disease Shelly Alessandro, GRAPPLE OPERATOR w (acute) exacerbation 09/09/2018 G35 Multiple sclerosis Shelly Alessandro, GRAPPLE OPERATOR 08/31/2018 J44.9 Chronic obstructive pulmonary Karli Brito, [place]LE[place] disease, unspecified 08/22/2018 J44.9 Chronic obstructive pulmonary Jeni Gardner, N.P. disease, unspecified 08/22/2018 R10.31 Right lower quadrant pain Jeni Gardner, N.P. 08/22/2018 R60.0 Localized edema Jeni Gardner, N.P. 08/18/2018 M25.552 Pain in left hip Akosua Guzman M.D. 08/18/2018 Z96.642 Presence of left artificial hip joint Akosua Guzman M.D. 08/18/2018 M79.652 Pain in left thigh Akosau Guzman M.D. 08/18/2018 M62.81 Muscle weakness (generalized) Akosua Guzman M.D. 08/18/2018 M16.12 Unilateral primary osteoarthritis, Akosua Guzman M.D. left hip 08/16/2018 G35 Multiple sclerosis Garrison Mckeon M.D. 08/16/2018 Z79.899 Other alf (current) drug Garrison Mckeon M.D. therapy 07/26/2018 R06.83 Snoring Laquita Lowe MD 07/26/2018 J44.9 Chronic obstructive pulmonary Laquita Lowe MD disease, unspecified 07/19/2018 R06.83 Snoring Laquita Lowe MD Plan of Treatment Future Appointment(s):02/01/2019 3:00 pm - Karli Brito NP at [facility]01/16/2019 2:30 pm - Иван Sheffield NP at [facility]01/11/2019 - Karli Brito NPJ44.1 Chronic obstructive pulmonary disease with (acute) exacerbatNew Medication: Doxycycline Monohydrate 100 mg - 1 tab twice daily for 1 weekJ98.4 Other disorders of lung Functional Status Description No Information Available Mental Status Description No Information Available Referrals Refer to Dr Reason for Referral Status Appt Date Created Laquita Lowe MD Patient referred for follow up of COPD Sent 12/11/2018 exacerbation and [facility] hospitalization. [address] [place] [address] [phone] Shila Caldera, PT, DPT Created [address] [place] [address] [place] [id number] [phone]
--- OUTSIDE RECORDS SUMMARY | 2019-02-06 17:13 | XMS REPORT | Continuity of Care Document ---
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 Kervin Read M.D. Director NO # [id number] 21 [id number] 22 SEE RESULT BELOW Name: NABILA CLEARY : [address]: Adrian España MD Acct: [id number] Unit: [id number] AGE: 70 Location: [facility] Re10/01/16 SEX: F Status: REG REF SPEC: [id number] CUCA: 10/01/16-1144 [facility] DR: Adrian España MD REQ: [id number] RECD: 10/01/16 STATUS: ZAFAR GUDINO DR: Dakota Gardner NET APPLICATIONS DEVELOPER _ ORDERED: LEVEL 4/3 COMMENTS: [id number] FINAL DIAGNOSIS 1. Skin, left cheek superior, [...] one cassette. CONTINUED ON NEXT PAGE * ML = Testing performed at Main Lab DEPARTMENT OF PATHOLOGY, [address] [place] [address] Kervin Read M.D. Director [facility] # [id number] RUN DATE: 10/06/16 [facility] LAB LIVE PAGE 2 Patient: GASTONNABILA Torres Izabel [id number] (Continued) GROSS DESCRIPTION (Continued) Signed (signature on file) Fatuma Morrison MD 1331 END OF REPORT * ML = Testing performed at Main Lab DEPARTMENT OF PATHOLOGY, [address] [place] [address] Kervin Read M.D. Director [facility] # [id number] 23 Because ethnic data is not always [...] levels within this range. Test Performed by: [address] [address] Experimental Physicist: Brad Langley III, M.D. 26 Because ethnic [...] 5 Kidney failure <15 (or dialysis) 33 Anion gap measurement may be of [...] Risk: LDL Greater than 189 MG/DL 39 Test Performed by: [address] [address] Experimental Physicist: Brad Langley III, M.D. 40 Interpretation: 10-24 (mild to moderate deficiency) -- REFERENCE VALUE -- 25-HYDROXY D TOTAL (D2+D3) Optimum levels in the normal population are 25-80 Test Performed by: [address] [address] Experimental Physicist: Brad Langley III, M.D. 41 New Reference Range and Interpretation effective 02/16/2002 TnI (ng/ml) INTERPRETATION Less Than 0.06 ng/mL NOT SUPPORTIVE OF DIAGNOSIS OF [place] 0.06 - 0.50 ng/ml INDETERMINATE: SUGGEST SERIAL STUDIES IF CLINICALLY INDICATED. Greater than 0.5 ng/mL CONSISTENT WITH DIAGNOSIS OF NH . 42 INTERPRETATION %CK-MB < 5% NOT SUPPORTIVE OF DIAGNOSIS OF [place] 5 - <10% INDETERMINATE; SUGGEST SERIAL STUDIES IF CLINICALLY INDICATED 10% OR > CONSISTENT WITH DIAGNOSIS OF [place] . 43 Anion gap measurement may be of limited value in the presence of any alkalosis, especially in a combined acid base disorder. . 44 A metabolite of Naproxen, O-desmethylnaproxen, has been shown to interfere with the [place] method for measuring total bilirubin. Samples from patients who have taken Naproxen have shown spurious elevation in total bilirubin levels. 45 Because ethnic data is not always readily [...] 15-29 5 Kidney failure <15 (or dialysis) 46 Test Performed by: [facility] Dpt of Lab Med and Pathology [address] [place] [id number] Experimental Physicist: Brad Langley III, M.D. 47 -- REFERENCE VALUE -- 25-HYDROXY D TOTAL (D2+D3) Optimum levels in the normal population are 25-80 Test Performed by: [facility] Dpt of Lab Med and Pathology [address] [place] [address] Experimental Physicist: Brad Langley III, M.D. 48 ---- RUN DATE: 07/13/06 [facility] NMI LIVE PAGE 1 RUN TIME: 1521 Specimen Inquiry RUN USER: INTERFACE [id number] NABILA CLEARY 60/F <DEP [facility] 07/12> ([id number]) Celestino Stephen MD -- Specimen: [id number] SOUT Spec Date: 07/11/[address]: Celestino Sierra MD Spec Type: SURGICAL P Received: 07/12/0609 Copies to: Maryjo Joshi MD SPECIMEN L3 -L4 DISC HISTORY PRE-OP DIAGNOSIS: L3-L4 disc protrusion GROSS DESCRIPTION The specimen is received in formalin labelled Nabila Cleary, L3-L4 Disc and consists of multiple fragments of hill-mixon fibrous soft tissue measuring 2.5 x 1.5 x 0.6 cm. in aggregate. Cytology Supervisor sections, one cassette. DIAGNOSIS Intervertebral disc, L3-4, discectomy - Intervertebral disc material. Signed Electronically by: KERVIN READ MD 07/13/06 -- -- DEPARTMENT OF PATHOLOGY, [address] [place] [address] [facility] Permit #[id number] [place] II, M.D. Director Kervin Read M.D. Welding Machine Operator/Tender Carroll irector -- Procedures Date Code Description Status 12/08/2018 [id number] Mammogram Completed 10/27/2018 15681 ECHO Transthorasic Realtime 2D W Doppler & Color Flow Completed Hosp 09/15/2018 11793 Admin Of Inj Completed 07/19/2018 81749 Polysomnography Sleep Staging 4+ Parameters Completed 03/22/2018 88471 EKG Tracing & Interpretation Completed 12/08/2017 16081 THR Total Hip Replacement Completed 12/08/201784764 THR Total Hip Replacement Completed 12/06/2017 94329 Diffusing Capacity Completed 12/06/2017 90127 Plethysmography Determination Lung Volumes & Per Completed Airway Resist 12/06/2017 07189 Pulmonary Function><Bronchodil Completed 11/27/2017 14616 Sleep Study Unattended,HRT Rate,Oxygen Sat,Resp Completed Effort/Airflow 11/23/2017 60143 EKG Tracing & Interpretation Completed 03/01/2017 32175 Admin Of Inj Completed 09/02/2016 00219 Admin Of Inj Completed 03/05/2016 12485 Chemotherpy Admin Subcutaneous/Im Non-Hormonal Completed Anti-Neoplastic 08/19/2015 17551568 Mammogram Completed 08/19/2015 299654741 Bone Mineral Density Test Completed 10/10/2013 90403 EKG Tracing & Interpretation Completed 08/22/2013 89821134 Mammogram Completed 11/11/2011 [id number] Colonoscopy Completed 08/10/2011 68363 EKG Tracing & Interpretation Completed 04/13/2011 42155 Noninvasive Ear Or Pulse Oximetry For Oxygen Completed Saturation 04/13/2011 85657 EKG Tracing & Interpretation Completed 03/18/2011 328229438 Bone Mineral Density Test Completed 02/18/2011 17717214 Mammogram Completed 02/10/2011 40268 Noninvasive Ear Or Pulse Oximetry For Oxygen Completed Saturation 02/03/2011 35528 Noninvasive Ear Or Pulse Oximetry For Oxygen Completed Saturation 12/10/2010 89806 Noninvasive Ear Or Pulse Oximetry For Oxygen Completed Saturation 12/03/2010 66644 Inhalation TX For Acute Airway Obstruction Completed W/Nebulizer/Inhaler 12/03/2010 76898 Noninvasive Ear Or Pulse Oximetry For Oxygen Completed Saturation 03/25/2010 55094 EKG Tracing & Interpretation Completed 09/24/2008 646156140 Bone Mineral Density Test Completed 09/12/2008 39884 EKG Tracing & Interpretation Completed 04/26/2008 88418 Inhalation TX For Acute Airway Obstruction Completed W/Nebulizer/Inhaler 04/26/2008 10645 Noninvasive Ear Or Pulse Oximetry For Oxygen Completed Saturation 04/26/2008 62258 Noninvasive Ear Or Pulse Oximetry For Oxygen Completed Saturation 09/06/2007 98291874 Mammogram Completed 07/13/2006 75483 EKG Tracing & Interpretation Completed 07/13/2006 70731 EKG Tracing & Interpretation Completed 07/11/2006 32077 Laminotomy W/Decomp NRV RT,One Interspace,Lumbar Completed 06/23/2006 00912 EKG Tracing & Interpretation Completed 04/29/2006 90419606 Mammogram Completed Encounters Type Date Location Provider Dx Diagnosis Office Visit 11/06/2018 Public Health Social Worker Internal Jeni Gardner J44.1 Chronic obstructive 4:00p Medicine - Ccmob N.P. pulmonary disease w (acute) exacerbation I10 Essential (primary) hypertension Office Visit 10/29/2018 9:43a [facility] Grzegorz West J44.1 Chronic Assoc,jcarlos BECKWITH obstructive Hospitalists pulmonary disease w (acute) exacerbation F41.9 Anxiety disorder, unspecified I47.1 Supraventricular tachycardia Office Visit 10/28/2018 9:43a [facility] Grzegorz West J44.1 Chronic Assoc,jcarlos BECKWITH obstructive Hospitalists pulmonary disease w (acute) exacerbation G35 Multiple sclerosis F41.9 Anxiety disorder, unspecified Z86.718 Personal history of other venous thrombosis and embolism J96.01 Acute respiratory failure with hypoxia Office Visit 10/27/2018 9:43a [facility] Renetta J44.1 Chronic Assoc,jcalros Wong MD obstructive Hospitalists pulmonary disease w (acute) exacerbation G35 Multiple sclerosis F41.9 Anxiety disorder, unspecified Z86.718 Personal history of other venous thrombosis and embolism Office Visit 09/15/2018 4:00p [facility] Internal Hugo Rogers J44.9 Chronic obstructive Medicine - Ccmob NET APPLICATIONS DEVELOPER pulmonary disease, unspecified G35 Multiple sclerosis Office Visit 09/11/2018 [facility] Marilu Nash, J96.01 Acute respiratory 8:57a Assjcarlos cox.DWendy failure with Hospitalists hypoxia J44.1 Chronic obstructive pulmonary disease w (acute) exacerbation Office Visit 09/10/2018 [facility] Marilu Nash, J96.01 Acute respiratory 8:56a Assjcarlos cox M.DWendy failure with Hospitalists hypoxia J44.1 Chronic obstructive pulmonary disease w (acute) exacerbation G35 Multiple sclerosis Office Visit 09/09/2018 [facility] Shelly J44.1 Chronic 8:55a Assoc,jcarlos Francois NP obstructive Hospitalists pulmonary disease w (acute) exacerbation G35 Multiple sclerosis Office Visit 08/31/2018 1:00p Pulmonology And Karli Marinelli44.9 Chronic Sleep Services Of OLENA Brito obstructive Public Health Social Worker pulmonary disease, unspecified Office Visit 08/22/2018 3:20p [facility] Internal Yves Rogers44.9 Chronic Medicine - Ccmob N.P. obstructive pulmonary disease, unspecified R10.31 Right lower quadrant pain R60.0 Localized edema Office Visit 08/18/2018 1:15p Orthopedic Services Akosua Thomas, M25.552 Pain in left Of C.M.A. M.D. 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 failure with Hospitalists hypoxia J44.1 Chronic obstructive pulmonary disease w (acute) exacerbation Office Visit 06/27/2018 8:56a [facility] Delia J96.01 Acute respiratory Assoc,jcarlos Brooks M.D. failure with Hospitalists hypoxia J44.1 Chronic obstructive pulmonary disease w (acute) exacerbation Office Visit 06/26/2018 [facility] Lisbet J44.1 Chronic 8:56a Assoc,jcarlos Robertson MD obstructive Hospitalists pulmonary disease w (acute) exacerbation Office Visit 06/19/2018 [facility] Garrison Perez G35 Multiple sclerosis 11:15a Services Of Oj Mckeon M.D. Z79.899 Other skilled nursing (current) drug therapy Office Visit 06/13/2018 9:15a Pulmonology And Laquita J44.9 Chronic Sleep Services Of MD Mynor obstructive [facility] pulmonary disease, unspecified R06.83 Snoring Office Visit 03/22/2018 11:00a [facility] Internal Jeni Gardner, R06.02 Shortness of Medicine - Ccmob N.P. breath I49.3 Ventricular premature depolarization Z87.891 Personal history of nicotine dependence J44.1 Chronic obstructive pulmonary disease w (acute) exacerbation Office Visit 12/26/2017 [facility] Internal Jeni Gardner, I10 Essential 2:40p Medicine - Ccmob N.P. (primary) hypertension Office Visit 12/10/2017 [facility] Grzegorz West MD J44.9 Chronic 10:37a Assoc,pc obstructive Hospitalists pulmonary disease, unspecified E78.5 Hyperlipidemia, unspecified G35 Multiple sclerosis Office Visit 12/09/2017 10:37a [facility] Darlene J44.9 Chronic Assoc, Emory Marks, obstructive Hospitalists NET APPLICATIONS DEVELOPER pulmonary disease, unspecified G35 Multiple sclerosis E78.5 Hyperlipidemia, unspecified Office Visit 12/08/2017 [facility] Jeremias J44.1 Chronic 10:36a Assoc,pc PENELOPE Wilson obstructive Hospitalists pulmonary disease w (acute) exacerbation E78.5 Hyperlipidemia, unspecified G35 Multiple sclerosis Office Visit 11/23/2017 2:00p [facility] Internal Hugo Rogers Z01.818 Encounter for other Medicine - NET APPLICATIONS DEVELOPER preprocedural Ccmob examination M16.12 Unilateral primary osteoarthritis, left hip J44.9 Chronic obstructive pulmonary disease, unspecified G35 Multiple sclerosis Office Visit 11/14/2017 Pulmonology And Laquita Z01.811 Encounter for 9:30a Sleep Services Of MD Mynor preprocedural [facility] respiratory examination M16.11 Unilateral primary osteoarthritis, right [...] osteoarthritis, left hip Office Visit 10/21/2017 4:00p [facility] Internal Jeni Gardner, H81.10 Benign paroxysmal Medicine - N.P. vertigo, Ccmob unspecified ear M25.552 Pain in left hip J44.9 Chronic obstructive pulmonary disease, unspecified H61.21 Impacted cerumen, right ear Office Visit 03/16/2017 10:30a Neurohospitalist Garrison Miller5 [facility] Alba Mckeon sclerosis Z79.899 Other skilled nursing (current) drug therapy Office Visit 01/07/2017 Da [facility] Internal Shane Andrea R60.0 Localized 11:00a Medicine-Elayne Wing M.D. edema Office Visit 12/28/2016 [facility] Internal Medicine - Jeni M54.31 Sciatica, 1:00p Ccmob Varn, N.P. right side J44.9 Chronic obstructive pulmonary disease, unspecified Office Visit 08/04/2016 2:20p [facility] Internal Jeni Gardner, M79.661 Pain in right Medicine - Ccmob N.P. lower leg Z86.718 Personal history of other venous thrombosis and embolism Office Visit 07/22/2016 10:40a [facility] Internal Jeni Gardner M54.2 Cervicalgia Medicine - Ccmob N.P. Office Visit 07/07/2016 10:30a Orthopedic Akosua Guzman, M25.552 Pain in left hip Services Of Alba Savage M16.12 Unilateral primary osteoarthritis, left hip Office Visit 06/22/2016 10:00a [facility] Internal Jeni Gardner, S39.013A Strain of Medicine - Ccmob N.P. 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 immunization S39.013A Strain of muscle, fascia and tendon of pelvis, init encntr M81.0 Age-related osteoporosis w/o current pathological fracture Office Visit 10/24/2015 1:20p [facility] Internal Jeni Gardner M81.0 Age- related Medicine - N.P. osteoporosis w/o Ccmob current pathological fracture Office Visit 08/12/2015 10:40a [facility] Internal Jeni Gardner Z00.00 Encntr for general Medicine - N.P. [...] Encounter for immunization Office Visit 04/30/2015 4:20p [facility] Internal Hugo Rogers, J20.9 Acute bronchitis, Medicine - Ccmob NET APPLICATIONS DEVELOPER unspecified J44.1 Chronic obstructive pulmonary disease w (acute) exacerbation Office Visit 11/26/2014 10:00a [facility] Garrison Perez 340 Multiple Services Of Oj Mckeon M.D. Sclerosis 780.79 Malaise And Fatigue Other Office Visit 06/07/2014 10:00a [facility] Internal Jeni Gardner, 496 COPD Airway Medicine - Ccmob N.P. Obstruction Chronic Not Class Elsewhere 724.5 Backache Unspec 733.00 Osteoporosis Unspec 720.2 Sacroiliitis Not Elsewhere Classified Office Visit 06/05/2014 2:20p [facility] Internal Jeni Gardner, 724.5 Backache Unspec Medicine - Ccmob N.P. 720.2 Sacroiliitis Not Elsewhere Classified 728.85 Spasm Muscle Office Visit 04/10/2014 11:20a [facility] Internal Jeni Gardner, 496 COPD Airway Medicine - N.P. Obstruction Chronic Ccmob Not Class Elsewhere Office Visit 03/27/2014 9:00a [facility] Internal Jeni Gardner, 496 COPD Airway Medicine - N.P. Obstruction Chronic Ccmob Not Class Elsewhere Office Visit 03/21/2014 11:40a [facility] Internal Jeni Gardner, 496 COPD Airway Medicine - N.P. Obstruction Chronic Ccmob Not Class Elsewhere Office Visit 11/27/2013 9:00a [facility] Internal Jeni Gardner, 272.4 Hyperlipidemia Other Medicine - N.P. Unspec Ccmob 564.00 Constipation Unspecified Office Visit 10/23/2013 2:15p [facility] aGrrison Perez 340 Multiple Services Of Oj Mckeon M.D. Sclerosis Office Visit 10/10/2013 2:00p [facility] Internal Maryjo Joshi, V70.0 Examination Medicine - Ccmob Alba, FACP General Medical Routine AT Health Care Facility V70.0 Examination General Medical Routine AT Health Care Facility V76.10 Screening For Malignant Neoplasm Breast 340 Multiple Sclerosis 496 COPD Airway Obstruction Chronic Not Class Elsewhere 530.81 Esophageal Reflux 300.00 Anxiety State Unspec 564.1 Irritable Bowel Syndrome 272.0 Hypercholesterolemia Pure 575.8 Gallbladder Disorders Other Spec Office Visit 09/04/2013 11:20a [facility] Internal Maryjo Madelyn, 496 COPD Airway Medicine - Reginoob M.Viri, FACP Obstruction Chronic Not Class Elsewhere 530.81 Esophageal Reflux 575.8 Gallbladder Disorders Other Spec Office Visit 08/16/2013 3:40p [facility] Internal Maryjo Madelyn, 496 COPD Airway Medicine - Ccmob M.Viri, FACP Obstruction Chronic Not Class Elsewhere 530.81 Esophageal Reflux Office Visit 04/19/2013 4:00p [facility] Internal Maryjo Joshi, 466.0 Bronchitis Acute Medicine - Reginoob Alba, FACP Office Visit 02/22/2013 9:00a [facility] Internal Maryjo Joshi, 564.1 Irritable Bowel Medicine - Ccmob M.Viri, FACP Syndrome 496 COPD Airway Obstruction Chronic Not Class Elsewhere 300.00 Anxiety State Unspec 340 Multiple Sclerosis Office Visit 11/06/2012 11:20a [facility] Internal Maryjo Joshi, 715.14 Osteoarthrosis Medicine - M.Viri, FACP Localized Prim Hand Ccmob 780.79 Malaise And Fatigue Other Office Visit 10/16/2012 11:20a [facility] Internal Maryjolisa Joshi, 780.79 Malaise And [facility] M.[facility]iri, FACP Fatigue Other 785.6 Lymph Nodes Enlargement Office Visit 10/04/2012 2:45p Bee Trinity Perez 340 Multiple Services Of [facility] Alba Mckeon Sclerosis Office Visit 05/01/2012 9:40a [facility] Internal Jeni Gardner, 340 Multiple Medicine - Ccmob N.P. Sclerosis 380.4 Impacted Cerumen 466.0 Bronchitis Acute Office Visit 04/27/2012 10:40a [facility] Internal Jeni Gardner, 466.0 Bronchitis Acute Medicine - Ccmob N.P. 380.4 Impacted Cerumen Office Visit 03/03/2012 3:40p [facility] Internal Jeni Gardner, 466.0 Bronchitis Acute Medicine - Ccmob N.P. Office Visit 11/08/2011 8:40a [facility] Internal Jeni Gardner, 268.9 Vitamin D Medicine - [facility] N.[facility] Deficiency Unspec 272.4 Hyperlipidemia Other Unspec 305.1 Tobacco Use Disorder Office Visit 09/06/2011 4:20p [facility] Internal Abida 528.6 Oral Soft Tissue Medicine - Alba Wadsworth Exlud Ginviva & Ccmob Tongue Leukoplakia Mucosa 923.10 Contusion Forearm Office Visit 08/10/2011 2:20p [facility] Internal Maryjo Joshi, V70.0 Examination Medicine - Charles Willis, FACP General Medical Routine AT Health Care Facility V76.10 Screening For Malignant Neoplasm Breast 496 COPD Airway Obstruction Chronic Not Class Elsewhere 733.90 Bone & Cartilage Disorder Unspec 305.1 Tobacco Use Disorder 401.1 Hypertension Benign 780.52 Insomnia Unspecified v72.60 Laboratory Examination, Unspecified Office Visit 04/15/2011 DO Not Use Jeni Varn, 723.1 Cervicalgia 10:00a Public Health Social Worker-[place] N.P. Office Visit 04/13/2011 DO Not Use Maryjolisa Joshi, 786.59 Pain Chest Other 10:00a Gavino Willis, FACP 723.1 Cervicalgia Office Visit 03/15/2011 10:00a DO Not Use Maryjolisa Joshi, 596.9 Bladder Gavino Willis, FACP Disorders Unspec 300.00 Anxiety State Unspec 305.1 Tobacco Use Disorder 733.90 Bone & Cartilage Disorder Unspec Office Visit 02/10/2011 2:20p DO Not Use Maryjolisa Joshi, 496 COPD Airway Gavino Willis, FACP Obstruction Chronic Not Class Elsewhere 305.1 Tobacco Use Disorder 300.00 Anxiety State Unspec 780.79 Malaise And Fatigue Other V76.10 Screening For Malignant Neoplasm Breast Office Visit 02/03/2011 2:00p DO Not Use Maryjolisa Joshi, 496 COPD Airway Gavino Willis, FACP Obstruction Chronic Not Class Elsewhere v04.81 Need For Prophylactic Vaccination & Inoculation/Influenza Office Visit 12/28/2010 10:00a DO Not Use Maryjolisa Joshi, 496 COPD Airway Gavino Willis, FACP Obstruction Chronic Not Class Elsewhere 300.00 Anxiety State Unspec Office Visit 12/10/2010 3:40p DO Not Use Maryjolisa Joshi, 496 COPD Airway Gavino Willis, FACP Obstruction Chronic Not Class Elsewhere Office Visit 12/03/2010 3:00p DO Not Use Maryjolisa Joshi, 496 COPD Airway Gavino Willis, FACP [...] Use Maryjo Joshi, 496 COPD Airway 2:45p Gavion Willis, FACP Obstruction Chronic Not Class Elsewhere 340 Multiple Sclerosis 780.79 Malaise And Fatigue Other Office Visit 09/12/2008 3:00p DO Not Use Maryjo Joshi, 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 Radial Styloid 719.41 Pain [facility] Office Visit 06/19/2008 DO Not Use Jeni Varn, 466.0 Bronchitis Acute 4:00p [facility] Office Visit 04/26/2008 DO Not Use Maryjo Madelyn, 496 COPD Airway 3:45p Gavino Willis, FACP Obstruction Chronic Not Class Elsewhere 466.0 Bronchitis Acute Office Visit 04/15/2008 DO Not Use Jeni Kendra, 611.72 Lump Or Mass 3:30p [facility] Breast Office Visit 02/16/2008 DO Not [...] Unspec Office Visit 06/13/2007 DO Not Use Jein Vargaviota, 599.0 UTI Urinary Tract 3:45p [facility] Infection Site Not Spec Office Visit 03/28/2007 Neurosurgery Celestino Mercado 724.2 Lumbago 3:30p [facility] Office Visit 02/07/2007 DO Not Use Jeni Varn, 564.00 Constipation 11:45a [facility] Unspecified 465.9 URI Upper Respiratory Infections [...] Visit 07/21/2006 3:00p DO Not Use Maryjolisa Joshi 340 Multiple Gavino Willis, FACP Sclerosis 724.2 [...] [facility] 340 Multiple Sclerosis V06.1 [facility] Combined (DTaP) Office Visit 12/30/2005 11:15a DO Not Use Maryjolisa Joshi, 610.0 Cyst Breast Gavino Willis, FACP Solitary 340 Multiple Sclerosis 272.4 Hyperlipidemia Other Unspec Plan of Treatment Future Appointment(s):01/11/2019 3:00 pm - Karli Brito NP at [facility]01/12/2019 9:45 am - Garrison Mckeon M.D. at [id number]/11/2018 - Laquita Lowe MDJ44.1 Chronic obstructive pulmonary disease with (acute) exacerbatNew Medication:Azithromycin 250 mg - take 2 tablets by mouth today then take 1 tablet daily for 4 daysPrednisone 10 mg - 30mg daily for 1 week, 20mg daily for 1 week, 10 mg daily for 1 weekFollow up:1 month SMJ98.4 Other disorders of lungF41.9 Anxiety disorder, unspecifiedNew Medication:Clonazepam 0.125 mg - 1 tab as needed for anxiety
[2019-02-06 17:45] LABS: ABS Eosinophils 0.2 10^3/ul (0-0.6); ABS Lymphocytes 0.7 10^3/ul (1.0-4.8); ABS Monocytes 0.6 10^3/ul (0-0.8); ABS Neutrophils 7.7 10^3/ul (1.5-7.7); Eosinophil % 1.9 %; Hematocrit 48 % (35-47); Hemoglobin 15.9 g/dL (12.0-16.0); Lymphocyte % 7.5 %; Mean Corpuscular HGB Conc 33 g/dL (31-36); Mean Corpuscular Hemoglobin 32 pg (27-31); Mean Corpuscular Volume 95 fL (80-97); Mean Platelet Volume 7.3 fL (7.4-10.4); Platelet Count 206 10^3/uL (150-450); Red Blood Count 5.04 10^6 /uL (3.70-4.87); Red Cell Distribution Width 15 % (10-15); White Blood Count 9.2 10^3/uL (3.5-10.8)
[2019-02-06] MEDS ORDERED: methylPREDNISolone 125 MG* 2 ML VIAL IV ONE (17:50)
[2019-02-06] MEDS ORDERED: Albuterol/Ipratropium NEB.SOL* Albuterol 2.5 MG/Ipratropium 0.5 MG 3 ML INH ONE ×3 (17:51→19:18)
[2019-02-06] MEDS ORDERED: Magnesium Sulfate 2 GM IV* 2 GM/50 ML BAG IVPB ONE (17:51)
[2019-02-06 18:03] LABS: Troponin I 0.01 ng/mL (<0.04)
[2019-02-06 18:17] LABS: Calcium 8.3 mg/dL (8.6-10.3); Potassium 3.7 mmol/L (3.5-5.0); Total Bilirubin 0.5 mg/dL (0.2-1.0)
[2019-02-06 18:23] LABS: Albumin/Globulin Ratio 1.7 (1-3); BUN/Creatinine Ratio 21.1 (8-20); EGFR African American 126.2 (>60); EGFR Non-African American 104.3 (>60); Globulin 2.3 g/dL (2-4); Total Protein 6.3 g/dL (6.4-8.9)
[2019-02-06 18:35] LABS: Magnesium 2.2 mg/dL (1.9-2.7)
[2019-02-06 18:41] LABS: C Reactive Protein 2.91 mg/L (<8.01)
--- NOTE | 2019-02-06 20:00 | ED ---
Shortness of Breath - HPI Summary HPI Summary: 73-year-old female w/ PMH of copd presents with shortness breath for the past couple days. She's been having increasing shortness breath. saw her primary today who told her to come here. She does not use at home oxygen. She she's been taking breathing treatments without relief. She states she feels very wheezy. Has been having a cough. Cough is productive. Has been sick with a cold. She denies any fevers. She states she feels some chest tightness. No chest pain. No abdominal pain. admits to some sinus congestion. - History of Current Complaint Chief Complaint: EDShortnessOfBreath Time Seen by Provider: 02/06/19 17:44 - Allergy/Home Medications Allergies/Adverse Reactions: Allergies Allergy/AdvReac Type Severity Reaction Status Date / Time amoxicillin [From Augmentin] Allergy Intermediate Hives Verified 02/06/19 17:40 clavulanic acid Allergy Intermediate Hives Verified 02/06/19 17:40 [From Augmentin] Sulfa (Sulfonamide Allergy Intermediate Hives Verified 02/06/19 17:40 Antibiotics) Home Medications: Home Medications ALPRAZolam TAB* [Xanax TAB*] 0.25 mg PO DAILY PRN 02/06/19 [History Confirmed ] Albuterol 2.5MG/3ML (0.083%)* [Ventolin 2.5 MG/3 ML NEB.ROSALIO*] 2.5 mg INH QID PRN 02/06/19 [History Confirmed 02/06/19] Albuterol HFA INHALER* [Ventolin HFA Inhaler*] 1 - 2 puff INH Q4H PRN 02/06/19 [ History Confirmed 02/06/19] Albuterol/Ipratropium RESP(NF) [Combivent Respimat(NF)] 1 aer INH .Q4-6H PRN [History Confirmed 02/06/19] Atorvastatin* [Lipitor 20 MG*] 20 mg PO DAILY 02/06/19 [History Confirmed ] Carisoprodol [Soma] 250 mg PO DAILY PRN 02/06/19 [History Confirmed 02/06/19] Denosumab [Prolia] 60 mg INJ Q6M 02/06/19 [History Confirmed 02/06/19] EPINEPHrine [Epipen 2-Ronal] 0.3 mg IM ONCE PRN 02/06/19 [History Confirmed ] Ipratropium 0.5MG/2.5ML NEB* [Atrovent 0.5 MG NEB.ROSALIO*] 0.5 mg INH QID PRN 02/06 [History Confirmed 02/06/19] Polyethylene Glycol 3350* [Miralax*] 17 gm PO DAILY PRN 02/06/19 [History Confirmed 02/06/19] Pregabalin CAP(*) [Lyrica CAP(*)] 100 mg PO TID MDD 300 mg 02/06/19 [History Confirmed 02/06/19] PMH/Surg Hx/FS Hx/Imm Hx Endocrine/Hematology History: Reports: Hx Anticoagulant Therapy - 81 mg aspirin , Hx Anemia Denies: Hx Diabetes, Hx Thyroid Disease Cardiovascular History: Reports: Hx Deep Vein Thrombosis - hx 9 years ago (DVT bilateral lower legs)., Hx Hypercholesterolemia, Hx Hypertension - ON MEDS Denies: Hx Congestive Heart Failure, Hx Myocardial Infarction, Hx Pacemaker/ ICD, Other Cardiovascular Problems/Disorders Respiratory History: Reports: Hx Asthma, Hx Chronic Obstructive Pulmonary Disease (COPD) - regular hospitalizations - sp02 ~92-93% usually, Hx Lung Cancer , Hx Pneumonia Denies: Hx Pulmonary Embolism, Hx Sleep Apnea - IN process of sleep studies GI History: Reports: Other GI Disorders - bloating, occassional diarrhea Denies: Hx Gall Bladder Disease, Hx Gastrointestinal Bleed, Hx Ulcer, Hx Urosepsis History: Reports: Other Problems/Disorders - dribbling incontinence @ times Denies: Hx Dialysis, Hx Kidney Stones, Hx Renal Disease Musculoskeletal History: Reports: Hx Arthritis - Bilateral hips and hands, Hx Osteoporosis Denies: Other Musculoskeletal History Sensory History: Reports: Hx Contacts or Glasses - bi-focal Denies: Hx Hearing Aid Opthamlomology History: Reports: Hx Contacts or Glasses - bi-focal Neurological History: Reports: Hx Nerve Disease - Multiple Sclerosis, Other Neuro Impairments/Disorders - MS Denies: Hx Dementia, Hx Migraine, Hx Seizures, Hx Transient Ischemic Attacks (TIA) Psychiatric History: Reports: Hx Depression Denies: Hx Anxiety, Hx Panic Disorder, Hx Schizophrenia, Hx Bipolar Disorder , Other Psychiatric Issues/Disorders - Cancer History Hx Chemotherapy: No Hx Radiation Therapy: No - Surgical History Surgery Procedure, Year, and Place: TONSILECTOMY; APPENDECTOMY; PARTIAL HYSTERECTOMY; EXPLORATORY THYROID; DISCECTOMY LOW BACK-2006; BREAST BIOPSY CLIP -Rt, LEFT HIP REPLACEMENT 12/2017 Hx Anesthesia Reactions: Yes - 1963- had a hard time waking her up from anesthesia - Immunization History Date of Influenza Vaccine: UTD Infectious Disease History: No Infectious Disease History: Denies: Hx Clostridium Difficile, Hx Hepatitis, Hx Human Immunodeficiency Virus (HIV), Hx of Known/Suspected MRSA, Hx Shingles, Hx Tuberculosis, Hx Known/ Suspected VRE, History Other Infectious Disease, Traveled Outside the [place] in Last 30 Days - Family History Known Family History: Positive: Cardiac Disease, Diabetes, Other - MS Negative: Hypertension - Social History Alcohol Use: None Hx Substance Use: No Substance Use Type: Reports: None Hx Tobacco Use: Yes Smoking Status (MU): Former Smoker Type: Cigarettes, eCigarettes Amount Used/How Often: 1/2-pack per day for 40 years Length of Time of Smoking/Using Tobacco: 40 years Have You Smoked in the Last Year: Yes Review of Systems Negative: Fever Negative: Chest Pain Positive: Shortness Of Breath, Cough Negative: Abdominal Pain All Other Systems Reviewed And Are Negative: Yes Physical Exam Triage Information Reviewed: Yes Vital Signs On Initial Exam: Initial Vitals Temp Pulse Resp BP Pulse Ox 99.0 F 81 22 149/84 92 02/06/19 16:57 02/06/19 16:57 02/06/19 16:57 02/06/19 16:57 02/06/19 16:57 Vital Signs Reviewed: Yes Appearance: Positive: Well-Appearing Skin: Positive: Warm, Dry Head/Face: Positive: Normal Head/Face Inspection Eyes: Positive: Normal, EOMI, CHANNING, Conjunctiva Clear ENT: Positive: Normal ENT inspection, Pharynx normal, TMs normal Respiratory/Lung Sounds: Positive: Decreased Breath Sounds, Wheezes Cardiovascular: Positive: Normal, RRR Abdomen Description: Positive: Nontender, Soft Bowel Sounds: Positive: Present Musculoskeletal: Positive: Normal Neurological: Positive: Normal Psychiatric: Positive: Normal Diagnostics - Vital Signs Vital Signs Temp Pulse Resp BP Pulse Ox 02/06/19 19:00 83 96 02/06/19 18:57 84 138/76 97 02/06/19 18:39 85 18 95 02/06/19 18:03 82 16 95 02/06/19 18:00 86 92 02/06/19 17:37 79 96 02/06/19 17:36 76 167/93 96 02/06/19 16:57 99.0 F 81 22 149/84 92 - Laboratory Lab Results: Lab Results 02/06/19 02/06/19 02/06/19 Range/Units 17:28 17:28 17:28 WBC 9.2 (3.5-10.8) 10^3/uL RBC 5.04 H (3.70-4.87) 10^6 /uL Hgb 15.9 (12.0-16.0) g/dL Hct 48 H (35-47) % MCV 95 (80-97) fL MCH 32 H (27-31) pg MCHC 33 (31-36) g/dL RDW 15 (10-15) % Plt Count 206 (150-450) 10^3/uL MPV 7.3 L (7.4-10.4) fL Neut % (Auto) 83.7 % Lymph % (Auto) 7.5 % Roosevelt % (Auto) 6.5 % Eos % (Auto) 1.9 % Baso % (Auto) 0.4 % Absolute Neuts (auto) 7.7 (1.5-7.7) 10^3/ul Absolute Lymphs (auto) 0.7 L (1.0-4.8) 10^3/ul Absolute Monos (auto) 0.6 (0-0.8) 10^3/ul Absolute Eos (auto) 0.2 (0-0.6) 10^3/ul Absolute Basos (auto) 0.0 (0-0.2) 10^3/ul Absolute Nucleated RBC 0.0 10^3/ul Nucleated RBC % 0.0 Sodium 136 (135-145) mmol/L Potassium 3.7 (3.5-5.0) mmol/L Chloride 104 (101-111) mmol/L Carbon Dioxide 24 (22-32) mmol/L Anion Gap 8 (2-11) mmol/L BUN 12 (6-24) mg/dL Creatinine 0.57 (0.51-0.95) mg/dL Est GFR ( Amer) 126.2 (>60) Est GFR (Non-Af Amer) 104.3 (>60) BUN/Creatinine Ratio 21.1 H (8-20) Glucose 122 H (70-100) mg/dL Lactic Acid 1.1 (0.5-2.0) mmol/L Calcium 8.3 L (8.6-10.3) mg/dL Magnesium 2.2 (1.9-2.7) mg/dL Total Bilirubin 0.50 (0.2-1.0) mg/dL AST 20 (13-39) U/L ALT 15 (7-52) U/L Alkaline Phosphatase 49 (34-104) U/L Troponin I 0.01 (<0.04) ng/mL C-Reactive Protein 2.91 (<8.01) mg/L B-Natriuretic Peptide (<=100) pg/mL Total Protein 6.3 L (6.4-8.9) g/dL Albumin 4.0 (3.2-5.2) g/dL Globulin 2.3 (2-4) g/dL Albumin/Globulin Ratio 1.7 (1-3) 02/06/19 Range/Units 17:28 WBC (3.5-10.8) 10^3/uL RBC (3.70-4.87) 10^6 /uL Hgb (12.0-16.0) g/dL Hct (35-47) % MCV (80-97) fL MCH (27-31) pg MCHC (31-36) g/dL RDW (10-15) % Plt Count (150-450) 10^3/uL MPV (7.4-10.4) fL Neut % (Auto) % Lymph % (Auto) % Roosevelt % (Auto) % Eos % (Auto) % Baso % (Auto) % Absolute Neuts (auto) (1.5-7.7) 10^3/ul Absolute Lymphs (auto) (1.0-4.8) 10^3/ul Absolute Monos (auto) (0-0.8) 10^3/ul Absolute Eos (auto) (0-0.6) 10^3/ul Absolute Basos (auto) (0-0.2) 10^3/ul Absolute Nucleated RBC 10^3/ul Nucleated RBC % Sodium (135-145) mmol/L Potassium (3.5-5.0) mmol/L Chloride (101-111) mmol/L Carbon Dioxide (22-32) mmol/L Anion Gap (2-11) mmol/L BUN (6-24) mg/dL Creatinine (0.51-0.95) mg/dL Est GFR ( Amer) (>60) Est GFR (Non-Af Amer) (>60) BUN/Creatinine Ratio (8-20) Glucose (70-100) mg/dL Lactic Acid (0.5-2.0) mmol/L Calcium (8.6-10.3) mg/dL Magnesium (1.9-2.7) mg/dL Total Bilirubin (0.2-1.0) mg/dL AST (13-39) U/L ALT (7-52) U/L Alkaline Phosphatase (34-104) U/L Troponin I (<0.04) ng/mL C-Reactive Protein (<8.01) mg/L B-Natriuretic Peptide 31 (<=100) pg/mL Total Protein (6.4-8.9) g/dL Albumin (3.2-5.2) g/dL Globulin (2-4) g/dL Albumin/Globulin Ratio (1-3) Result Diagrams: 02/06/19 17:28 02/06/19 17:28 Lab Statement: Any lab studies that have been ordered have been reviewed, and results considered in the medical decision making process. - Radiology chest Radiology Interpretation Completed By: Radiologist Summary of Radiographic Findings: IMPRESSION: #. Stigmata of obstructive lung disease. No acute pulmonary or cardiac process evident. - EKG No standard instances Cardiac Rate: NL EKG Rhythm: Sinus Rhythm EKG Comparison: No Significant Change Summary of EKG Findings: sinus rhythm, PVCs Re-Evaluation - Re-Evaluation First Eval Change: Unchanged Comment: still feels sob Second Eval Re-Evaluation Time: 19:55 Change: Unchanged Comment: wheezing still heard Course/Dx - Course Course Of Treatment: 73-year-old female w/ PMH of copd presents with shortness breath for the past couple days. She's been having increasing shortness breath. saw her primary today who told her to come here. She does not use at home oxygen. She she's been taking breathing treatments without relief. She states she feels very wheezy. Has been having a cough. Cough is productive. Has been sick with a cold. She denies any fevers. She states she feels some chest tightness. No chest pain. No abdominal pain. admits to some sinus congestion. On exam decreased breath sounds with wheezing. chest xray copd. wbc normal. Gave solumedrol and magnesium and 3 breathing treatments without any change. Patient is requiring oxygen to keep sats in the mid 90s. We'll have him admitted to hospitalist. Dr. Ruiz accepts. - Diagnoses Differential Diagnosis/HQI/PQRI: Positive: COPD Exacerbation, MO, Pneumonia Provider Diagnoses: COPD (chronic obstructive pulmonary disease) Discharge ED - Sign-Out/Discharge Documenting (check all that apply): Patient Departure - Discharge Plan Condition: Stable Disposition: ADMITTED TO [facility] - Billing Disposition and Condition Condition: STABLE Disposition: Admitted to [facility] - Attestation Statements Provider Attestation: I was available for consult. This patient was seen by the YANCI. The patient was not presented to, seen by, or examined by me. Ever Esipnal MD
[2019-02-06] MEDS ORDERED: ALPRAZolam TAB* 0.25 MG PO PRN (20:41)
[2019-02-06] MEDS ORDERED: Albuterol 2.5 MG/3 ML NEB.SOL* (0.083%) INH PRN (20:41)
[2019-02-06] MEDS ORDERED: methylPREDNISolone SOD 40 MG* 1 ML VIAL IV SCH (21:00)
--- NOTE | 2019-02-06 22:17 | HP ---
CC: Jeni Gardner NP * HISTORY AND PHYSICAL: DATE OF ADMISSION: 02/06/19 PROVIDER: Shelly Francois NP PRIMARY CARE PROVIDER: Jeni Gardner NP ATTENDING PHYSICIAN WHILE IN THE HOSPITAL: Dr. Dottie Ruiz * (dictated by Shelly Francois NP). CHIEF COMPLAINT: Shortness of breath. HISTORY OF PRESENT ILLNESS: Ms. Cleary is a 73-year-old female with a past medical history significant for COPD, MS, osteoporosis, restless legs syndrome, anxiety, and history of DVT after surgery, no longer on anticoagulation, who presented to the emergency room with complaints of shortness of breath. The patient reports that her worsening shortness of breath started this morning. She made an appointment with Jeni Gardner. She was seen in the office today. When she presented to the office, her O2 saturations were 85%, so she was sent to the emergency room for further evaluation. The patient does note that she has had increased sputum production that is yellow and greenish and had increased cough as well as congestion. She does report mild fevers. Denies any chest pain or edema, nausea, vomiting, diarrhea, abdominal pain, hematuria, or dysuria. Denies any focal weakness or sensory loss. Denies any visual complaints, dysphagia, arthralgias, myalgias, rashes, lesions, open sores, psychosis, or anxiety. While in the emergency room, the patient had routine lab work drawn. She had a chest x-ray, which showed COPD, no pneumonia. The patient is now on O2 via nasal cannula at 2 L and O2 sats are 95%. Due to her progressively worsening shortness of breath and hypoxia, Hospital Medicine was asked to see and evaluate for admission. PAST MEDICAL HISTORY: Significant for: 1. COPD with frequent exacerbations. 2. MS. 3. Osteoporosis. 4. Restless legs. 5. Anxiety. 6. History of DVT after surgery, no longer on anticoagulation. PAST SURGICAL HISTORY: 1. Back surgery. 2. Hysterectomy, partial. 3. . 4. Appendectomy. 5. Tonsillectomy. HOME MEDICATIONS: Include: 1. Soma 250 mg p.o. daily p.r.n. 2. Albuterol/Combivent Respimat 1 inhaled every 4 to 6 hours as needed. 3. Lyrica 100 mg p.o. t.i.d. 4. Atrovent 0.5 mg four times a day. 5. Albuterol 2.5 inhaled four times a day p.r.n. 6. Effexor 150 mg p.o. daily. 7. MiraLAX 17 g p.o. daily p.r.n. 8. Atorvastatin 20 mg p.o. daily. 9. Albuterol HFA inhaler 1 to 2 puffs q.4 hours. 10. Epi 0.3 IM once as needed. 11. Diltiazem 120 mg p.o. daily. 12. Prolia 60 mg IM q.6 months. 13. Baclofen 5 mg p.o. b.i.d. p.r.n. 14. Alprazolam 0.25 mg p.o. daily p.r.n. ALLERGIES: AMOXICILLIN, AUGMENTIN, and SULFA. FAMILY HISTORY: Father from COPD in his 60s. Mother from stroke in her 90s and also had heart disease. Sister with diabetes. No reported history of cancer. SOCIAL HISTORY: The patient currently lives with her . 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 She quit smoking in 2011. Prior to that, she smoked between 40 to 50 years of three quarters of a pack per day. She denies any alcohol or illicit drug use. Surrogate decision maker in the event she is unable to make her own decisions is her or her daughter, Leigh. She is a full code. REVIEW OF SYSTEMS: An 11-point review of systems was completed. All pertinent positives were mentioned in the HPI. PHYSICAL EXAMINATION GENERAL: At this time, Ms. Cleary is a 73-year-old female. She is alert and oriented, resting on the stretcher in the emergency room. She appears to be in mild respiratory distress. VITAL SIGNS: Blood pressure 109/64, heart rate 103, respirations are 24, O2 saturation 96% on 3 L nasal cannula, temperature was 99.0. HEENT: Head is atraumatic, normocephalic. Eyes: EOMs are intact. Sclerae anicteric and not pale. Oral mucosa appeared to be moist. NECK: Supple. LUNGS: Clear to auscultation bilaterally. Lungs are diminished bilaterally with expiratory wheezes throughout bilaterally. ABDOMEN: Soft and nontender. Bowel sounds are present x4. EXTREMITIES: She is able to move all 4 extremities. There is no clubbing or cyanosis. Pedal pulses are +2 bilaterally. NEUROLOGIC: She is awake, alert, oriented x3. Speech is clear. Thought process is intact. There are no gross focal deficits. SKIN: Intact. DIAGNOSTIC STUDIES/LAB DATA: WBCs are 9.2, RBCs 5.04, hemoglobin 15.9, hematocrit was 48, platelet count was 206. D-dimer was 240. Sodium 136, potassium 3.7, chloride 104, carbon dioxide was 24, anion gap was 8, BUN was 12 , creatinine 0.57, glucose was 122, lactic acid was 1.1, calcium was 8.3, magnesium 2.2. ASTs were 20, ALTs were 15, alkaline phosphatase was 49. Troponin was 0.01. BNP was 31. She had a chest x-ray, radiologist's impression: Stigmata of her obstructive lung disease. No acute cardiopulmonary or cardiac process was evident. She had an electrocardiogram, which showed sinus rhythm with PACs. ASSESSMENT AND PLAN: Ms. Cleary is a 73-year-old female with a past medical history of chronic obstructive pulmonary disease, multiple sclerosis, osteoporosis, restless legs syndrome, and anxiety, who presented to the emergency room with complaints of shortness of breath. She will be admitted inpatient for: 1. Chronic obstructive pulmonary disease exacerbation. The patient does report that she has had increased sputum production, increased cough that started this morning with hypoxia, O2 saturations of 85% on room air in her primary care doctor's office. The patient was placed on O2 via nasal cannula. She was given nebulizer. We will continue her on albuterol and Atrovent nebulizers. I will continue her on steroids, 40 mg of Solu-Medrol q.12 hours. I will also add azithromycin and ceftriaxone. I will get a urine for legionella and Streptococcus pneumoniae. Blood cultures are currently pending. Within the differential is also pulmonary embolism as the patient does have a history of deep venous thrombosis. I will get a CTA of the chest as her D- dimer is elevated at 240. 2. Anxiety. She will continue on Effexor 150 mg daily. 3. Hyperlipidemia. She will continue on atorvastatin 20 mg p.o. daily. 4. Restless legs. She can continue on baclofen as needed. 5. FEN. She can have a regular diet. 6. Code status. She is a full code. 7. DVT prophylaxis. I will place her on Lovenox subcu. TIME SPENT: Time spent on this admission was 60 minutes, greater than half that time was spent at the bedside reviewing events leading thus far to her hospitalization, performing physical exam, and reviewing my plan of care. I have discussed this with my attending, Dr. Dottie Ruiz; she is in agreement with my plan. SHELLY FRANCOIS, HAT BINDER [id number]/CPS #: [id number] MTDD
[2019-02-06] MEDS: Pregabalin CAP(*) 100 MG PO SCH (22:45)
[2019-02-06] MEDS: Baclofen TAB* 10 MG PO PRN (22:45)
[2019-02-06] MEDS: cefTRIAXone(*) 1 GM in NS 0.9% 50 ML* 50 ML IVPB SCH (22:45)
[2019-02-06] MEDS: Enoxaparin(*) 40 MG/0.4 ML SYR SUBCUT SCH (22:46)
[2019-02-06] MEDS ORDERED: Iohexol 350* (CONTRAST) 500 ML MDV IV ONE (23:21)
[2019-02-07] MEDS: Azithromycin 500 mg/250 ml NS 500 MG/250 ML BAG IVPB SCH ×2 (00:18→23:00)
[2019-02-07] MEDS: Albuterol/Ipratropium NEB.SOL* Albuterol 2.5 MG/Ipratropium 0.5 MG 3 ML INH SCH ×5 (01:29→19:47)
[2019-02-07] MEDS ORDERED: methylPREDNISolone SOD 40 MG* 1 ML VIAL IV SCH (06:00)
[2019-02-07 06:15] LABS: ABS Lymphocytes 0.3 10^3/ul (1.0-4.8); ABS Monocytes 0.4 10^3/ul (0-0.8); ABS Neutrophils 6.6 10^3/ul (1.5-7.7); Hematocrit 46 % (35-47); Hemoglobin 15.8 g/dL (12.0-16.0); Lymphocyte % 4.1 %; Mean Corpuscular HGB Conc 34 g/dL (31-36); Mean Corpuscular Hemoglobin 32 pg (27-31); Mean Corpuscular Volume 94 fL (80-97); Mean Platelet Volume 8.2 fL (7.4-10.4); Platelet Count 232 10^3/uL (150-450); Red Blood Count 4.93 10^6 /uL (3.70-4.87); Red Cell Distribution Width 14 % (10-15); White Blood Count 7.3 10^3/uL (3.5-10.8)
[2019-02-07 06:30] LABS: BUN/Creatinine Ratio 25.5 (8-20); Calcium 8.2 mg/dL (8.6-10.3); EGFR African American 131.5 (>60); EGFR Non-African American 108.6 (>60); Potassium 4.1 mmol/L (3.5-5.0)
[2019-02-07] MEDS: Atorvastatin* 20 MG TAB PO SCH (08:39)
[2019-02-07] MEDS: Pregabalin CAP(*) 100 MG PO SCH ×3 (08:39→21:28)
[2019-02-07] MEDS: Venlafaxine EXT RELEASE CAP* 75 MG PO SCH (08:40)
--- NOTE | 2019-02-07 11:12 | PN ---
Subjective Date of Service: 02/07/19 Interval History: Patient experienced nausea, abd pain, and diarrhea overnight. She tells me once the diarrhea occurred, her abd pain and nausea improved. All symptoms have resolved thus far this morning. Never vomited. Today her shortness of breath is far improved at rest, but still present. SOB is worse with exertion but she is able to recover with rest. She continues to have yellow sputum production with cough. Denies fever/chills, chest pain. Objective Active Medications: Albuterol (Ventolin 2.5 Mg/3 Ml Neb.Jenna*) 2.5 mg INH [id number] AWAKE PRN PRN Reason: SHORTNESS OF BREATH Last Admin: 02/07/19 05:36 Dose: 2.5 mg Albuterol/Ipratropium (Duoneb (Albuterol 2.5 Mg/Ipratropium 0.5 Mg)) 1 neb INH [id number] AWAKE [facility] Alprazolam (Xanax Tab*) 0.25 mg PO DAILY PRN PRN Reason: ANXIETY Atorvastatin Calcium (Lipitor*) 20 mg PO DAILY [facility] Last Admin: 02/07/19 08:39 Dose: 20 mg Baclofen (Lioresal Tab*) 5 mg PO BID PRN PRN Reason: SPASMS Last Admin: 02/06/19 22:45 Dose: 5 mg Enoxaparin Sodium (Lovenox(*)) 40 mg SUBCUT Q24H [facility] Last Admin: 02/06/19 22:46 Dose: 40 mg Azithromycin (Zithromax 500 Mg/250 Ml) 500 mg in 250 mls @ 250 mls/hr IVPB Q24H [facility] Last Admin: 02/07/19 00:18 Dose: 250 mls/hr Ceftriaxone Sodium 1 gm/ (Sodium Chloride) 50 mls @ 100 mls/hr IVPB Q24H [facility] Last Admin: 02/06/19 22:45 Dose: 100 mls/hr Methylprednisolone Sodium Succinate (Solu-Medrol 40 Mg) 40 mg IV Q12H [facility] Last Admin: 02/07/19 05:25 Dose: 40 mg Pregabalin (Lyrica Cap(*)) 100 mg PO TID [facility] Last Admin: 02/07/19 08:39 Dose: 100 mg Venlafaxine HCl (Effexor Xr Cap*) 150 mg PO DAILY [facility] Last Admin: 02/07/19 08:40 Dose: 150 mg Vital Signs - 8 hr 02/07/19 02/07/19 02/07/19 03:15 05:39 07:08 Temperature 97.5 F Pulse Rate 92 88 96 Respiratory 20 18 16 Rate Blood Pressure 142/64 (mmHg) O2 Sat by Pulse 97 97 98 Oximetry 02/07/19 02/07/19 02/07/19 07:15 08:00 08:39 Temperature 97.6 F Pulse Rate 92 Respiratory 20 20 20 Rate Blood Pressure 117/68 (mmHg) O2 Sat by Pulse 98 Oximetry Oxygen Devices in Use Now: Nasal Cannula Appearance: Thin, elderly white female, sitting on edge of bed, appearing in NAD ; breathing with pursed lips at times Eyes: No Scleral Icterus, PERRLA Ears/Nose/Mouth/Throat: Mucous Membranes Moist Neck: NL Appearance and Movements; NL JVP Respiratory: Symmetrical Chest Expansion and Respiratory Effort, - - expiratory wheezing throughout; audible productive cough Cardiovascular: NL Sounds; No Murmurs; No JVD, RRR Abdominal: - - abd soft, nontender, nondistended Extremities: No Edema, No Clubbing, Cyanosis, - - neg calf tenderness Skin: No Rash or Ulcers Neurological: Alert and Oriented x 3, NL Muscle Strength and Tone Result Diagrams: 02/07/19 05:41 02/07/19 05:41 Additional Lab and Data: Lab Results 02/06/19 02/06/19 02/06/19 Range/Units 17:28 17:28 17:28 WBC 9.2 (3.5-10.8) 10^3/uL RBC 5.04 H (3.70-4.87) 10^6 /uL Hgb 15.9 (12.0-16.0) g/dL Hct 48 H (35-47) % MCV 95 (80-97) fL MCH 32 H (27-31) pg MCHC 33 (31-36) g/dL RDW 15 (10-15) % Plt Count 206 (150-450) 10^3/uL MPV 7.3 L (7.4-10.4) fL Neut % (Auto) 83.7 % Lymph % (Auto) 7.5 % [place] % (Auto) 6.5 % Eos % (Auto) 1.9 % Baso % (Auto) 0.4 % Absolute Neuts (auto) 7.7 (1.5-7.7) 10^3/ul Absolute Lymphs (auto) 0.7 L (1.0-4.8) 10^3/ul Absolute Monos (auto) 0.6 (0-0.8) 10^3/ul Absolute Eos (auto) 0.2 (0-0.6) 10^3/ul Absolute Basos (auto) 0.0 (0-0.2) 10^3/ul Absolute Nucleated RBC 0.0 10^3/ul Nucleated RBC % 0.0 Sodium 136 (135-145) mmol/L Potassium 3.7 (3.5-5.0) mmol/L Chloride 104 (101-111) mmol/L Carbon Dioxide 24 (22-32) mmol/L Anion Gap 8 (2-11) mmol/L BUN 12 (6-24) mg/dL Creatinine 0.57 (0.51-0.95) mg/dL Est GFR ( Amer) 126.2 (>60) Est GFR (Non-Af Amer) 104.3 (>60) BUN/Creatinine Ratio 21.1 H (8-20) Glucose 122 H (70-100) mg/dL Lactic Acid 1.1 (0.5-2.0) mmol/L Calcium 8.3 L (8.6-10.3) mg/dL Magnesium 2.2 (1.9-2.7) mg/dL Total Bilirubin 0.50 (0.2-1.0) mg/dL AST 20 (13-39) U/L ALT 15 (7-52) U/L Alkaline Phosphatase 49 (34-104) U/L Troponin I 0.01 (<0.04) ng/mL C-Reactive Protein 2.91 (<8.01) mg/L B-Natriuretic Peptide (<=100) pg/mL Total Protein 6.3 L (6.4-8.9) g/dL Albumin 4.0 (3.2-5.2) g/dL Globulin 2.3 (2-4) g/dL Albumin/Globulin Ratio 1.7 (1-3) 02/06/19 Range/Units 17:28 WBC (3.5-10.8) 10^3/uL RBC (3.70-4.87) 10^6 /uL Hgb (12.0-16.0) g/dL Hct (35-47) % MCV (80-97) fL MCH (27-31) pg MCHC (31-36) g/dL RDW (10-15) % Plt Count (150-450) 10^3/uL MPV (7.4-10.4) fL Neut % (Auto) % Lymph % (Auto) % [place] % (Auto) % Eos % (Auto) % Baso % (Auto) % Absolute Neuts (auto) (1.5-7.7) 10^3/ul Absolute Lymphs (auto) (1.0-4.8) 10^3/ul Absolute Monos (auto) (0-0.8) 10^3/ul Absolute Eos (auto) (0-0.6) 10^3/ul Absolute Basos (auto) (0-0.2) 10^3/ul Absolute Nucleated RBC 10^3/ul Nucleated RBC % Sodium (135-145) mmol/L Potassium (3.5-5.0) mmol/L Chloride (101-111) mmol/L Carbon Dioxide (22-32) mmol/L Anion Gap (2-11) mmol/L BUN (6-24) mg/dL Creatinine (0.51-0.95) mg/dL Est GFR ( Amer) (>60) Est GFR (Non-Af Amer) (>60) BUN/Creatinine Ratio (8-20) Glucose (70-100) mg/dL Lactic Acid (0.5-2.0) mmol/L Calcium (8.6-10.3) mg/dL Magnesium (1.9-2.7) mg/dL Total Bilirubin (0.2-1.0) mg/dL AST (13-39) U/L ALT (7-52) U/L Alkaline Phosphatase (34-104) U/L Troponin I (<0.04) ng/mL C-Reactive Protein (<8.01) mg/L B-Natriuretic Peptide 31 (<=100) pg/mL Total Protein (6.4-8.9) g/dL Albumin (3.2-5.2) g/dL Globulin (2-4) g/dL Albumin/Globulin Ratio (1-3) Microbiology and Other Data: Microbiology 09/24/19 20:50 Gram Stain - Final Sputum 02/06/19 22:00 Legionella Urinary Antigen - Final Urine Negative Legionella Antigen Streptococcus pneumoniae Ag Screen - Final Negative S. pneumo Antigen Assess/Plan/Problems-Billing Assessment: 73 yo female with PMHx COPD with frequent exacerbations, MS, anxiety, and remote hx of PE presents with SOB and increased sputum production. - Patient Problems (1) Acute respiratory failure with hypoxia Current Visit: Yes Status: Acute Code(s): J96.01 - ACUTE RESPIRATORY FAILURE WITH HYPOXIA SNOMED Code(s): 60567567 Comment: -due to COPD exacerbation. Presenting with SOB, increasing sputum production, and O2 sat of 85% at doctor's office -no pneumonia, PE ruled out with CTA -saturating well on 3L today, will attempt to wean -symptomatic improvement of SOB -received one dose solumedrol today, will change to 50mg prednisone for tomorrow (2) COPD with acute exacerbation Current Visit: No Status: Acute Code(s): J44.1 - CHRONIC OBSTRUCTIVE PULMONARY DISEASE W (ACUTE) EXACERBATION SNOMED Code(s): 285099407 Comment: -steroids as described above -continue ceftriaxone and azithromycin due to increased sputum production and initial hypoxia -sputum culture pending -continue scheduled duonebs -patient was on Anoro ellipta in the past and is only using duoneb once in the morning at home. Anoro was not helpful for her because she had poor inhaler technique and felt the powder in her mouth. Discussed with Dr. Lowe and she felt it was reasonable to start bevespi. I will order this to start tomorrow so patient can have RT education (3) Anxiety Current Visit: No Status: Acute Code(s): F41.9 - ANXIETY DISORDER, UNSPECIFIED SNOMED Code(s): 65344268 Comment: -cont home venlafaxine (4) Multiple sclerosis Current Visit: No Status: Acute Code(s): G35 - MULTIPLE SCLEROSIS SNOMED Code(s): 55821931 Comment: - Continue Baclofen, lyrica - We have 350 mg carisoprodol on formulary and will receive that prn while inpatient. Will return to regular home dose of 250 mg upon discharge (5) SVT (supraventricular tachycardia) Current Visit: Yes Status: Acute Code(s): I47.1 - SUPRAVENTRICULAR TACHYCARDIA SNOMED Code(s): 5595838 Comment: -patient found to have intermittent SVT during hospitalization in October 2018 -home diltiazem ordered (6) DVT prophylaxis Current Visit: No Status: Acute Code(s): ZBP3185 - SNOMED Code(s): 361382765 Comment: -continue lovenox (7) Full code status Current Visit: No Status: Acute Code(s): Z78.9 - OTHER SPECIFIED HEALTH STATUS SNOMED Code(s): 173089331 Status and Disposition: Anticipate d/c home when medically improved
[2019-02-07] MEDS ORDERED: Carisoprodol TAB* 350 MG PO PRN (11:43)
[2019-02-07] MEDS: Diltiazem CD CAP* 120 MG PO SCH (13:01)
[2019-02-07] MEDS: Calcium Carbonate CHEW TAB* 500 MG (TUMS) PO PRN ×2 (14:49→23:10)
[2019-02-07] MEDS: Enoxaparin(*) 40 MG/0.4 ML SYR SUBCUT SCH (21:29)
[2019-02-07] MEDS: cefTRIAXone(*) 1 GM in NS 0.9% 50 ML* 50 ML IVPB SCH (22:13)
[2019-02-07] MEDS: Baclofen TAB* 10 MG PO PRN (23:09)
[2019-02-08] MEDS: Albuterol/Ipratropium NEB.SOL* Albuterol 2.5 MG/Ipratropium 0.5 MG 3 ML INH SCH ×4 (01:35→19:23)
[2019-02-08] MEDS: Tiotropium Brom/Olodaterol MDI INH SCH (07:15)
[2019-02-08] MEDS ORDERED: Glycopyrrolate/Formoterol (NF) MDI INH SCH (09:00)
[2019-02-08] MEDS ORDERED: predniSONE TAB* 50 MG PO SCH (09:00)
[2019-02-08] MEDS: Atorvastatin* 20 MG TAB PO SCH (09:53)
[2019-02-08] MEDS: Diltiazem CD CAP* 120 MG PO SCH (09:53)
[2019-02-08] MEDS: Pregabalin CAP(*) 100 MG PO SCH ×3 (09:53→21:40)
[2019-02-08] MEDS: Venlafaxine EXT RELEASE CAP* 75 MG PO SCH (09:53)
[2019-02-08] MEDS ORDERED: Albuterol 2.5 MG/3 ML NEB.SOL* (0.083%) INH PRN (13:38)
--- NOTE | 2019-02-08 13:40 | PN ---
Subjective Date of Service: 02/08/19 Interval History: Pt continues to require 2L NC at rest, but feels that breathing is improved overall. She continues to have loose, occasionally productive cough. She c/o sweats last night, occasional chills, no fevers. She has been up to BR and walking around room, but has low tolerance for activity, even prior to admission. She has no other complaints today. Objective Active Medications: Alprazolam (Xanax Tab*) 0.25 mg PO DAILY PRN Atorvastatin Calcium (Lipitor*) 20 mg PO DAILY [facility] Baclofen (Lioresal Tab*) 5 mg PO BID PRN Calcium Carbonate (Tums*) 500 mg PO Q4H PRN Carisoprodol (Soma Tab*) 350 mg PO DAILY PRN Diltiazem HCl (Cardizem Cd Cap*) 120 mg PO DAILY [facility] Enoxaparin Sodium (Lovenox(*)) 40 mg SUBCUT Q24H [facility] Azithromycin (Zithromax 500 Mg/250 Ml) 500 mg in 250 mls @ 250 mls/hr IVPB Q24H [facility] Ceftriaxone Sodium 1 gm/ (Sodium Chloride) 50 mls @ 100 mls/hr IVPB Q24H [facility] Methylprednisolone Sodium Succinate (Solu-Medrol 125mg *) 60 mg IV Q8H [facility] Tiotropium [place]/Olodaterol (Stiolto Respimat Inh [place] (60 Puff)) 2 puff INH DAILY [facility] Venlafaxine HCl (Effexor Xr Cap*) 150 mg PO DAILY [facility] Vital Signs: Temp Pulse Resp BP Pulse Ox 98.1 F 88 20 128/56 99 02/08/19 11:15 02/08/19 11:15 02/08/19 14:29 02/08/19 11:15 02/08/19 11:15 Oxygen Devices in Use Now: Nasal Cannula Appearance: Pt sitting up in bed, O2 NC in place. Pursed lip breathing with increased work of breathing. Eyes: No Scleral Icterus, PERRLA Ears/Nose/Mouth/Throat: NL Teeth, Lips, Gums, Clear Oropharnyx, Mucous Membranes Moist Neck: NL Appearance and Movements; NL JVP, Trachea Midline Respiratory: - - Pursed lip breathing. Diffuse expiratory wheeze throughout b/ l lungs without rhonchi, rales. Cardiovascular: NL Sounds; No Murmurs; No JVD, RRR, No Edema Abdominal: NL Sounds; No Tenderness; No Distention, No Hepatosplenomegaly Extremities: No Edema, No Clubbing, Cyanosis Neurological: Alert and Oriented x 3 Result Diagrams: 02/07/19 05:41 02/07/19 05:41 Additional Lab and Data: Lab Results 02/06/19 02/06/19 02/06/19 Range/Units 17:28 17:28 17:28 WBC 9.2 (3.5-10.8) 10^3/uL RBC 5.04 H (3.70-4.87) 10^6 /uL Hgb 15.9 (12.0-16.0) g/dL Hct 48 H (35-47) % MCV 95 (80-97) fL MCH 32 H (27-31) pg MCHC 33 (31-36) g/dL RDW 15 (10-15) % Plt Count 206 (150-450) 10^3/uL MPV 7.3 L (7.4-10.4) fL Neut % (Auto) 83.7 % Lymph % (Auto) 7.5 % [place] % (Auto) 6.5 % Eos % (Auto) 1.9 % Baso % (Auto) 0.4 % Absolute Neuts (auto) 7.7 (1.5-7.7) 10^3/ul Absolute Lymphs (auto) 0.7 L (1.0-4.8) 10^3/ul Absolute Monos (auto) 0.6 (0-0.8) 10^3/ul Absolute Eos (auto) 0.2 (0-0.6) 10^3/ul Absolute Basos (auto) 0.0 (0-0.2) 10^3/ul Absolute Nucleated RBC 0.0 10^3/ul Nucleated RBC % 0.0 Sodium 136 (135-145) mmol/L Potassium 3.7 (3.5-5.0) mmol/L Chloride 104 (101-111) mmol/L Carbon Dioxide 24 (22-32) mmol/L Anion Gap 8 (2-11) mmol/L BUN 12 (6-24) mg/dL Creatinine 0.57 (0.51-0.95) mg/dL Est GFR ( Amer) 126.2 (>60) Est GFR (Non-Af Amer) 104.3 (>60) BUN/Creatinine Ratio 21.1 H (8-20) Glucose 122 H (70-100) mg/dL Lactic Acid 1.1 (0.5-2.0) mmol/L Calcium 8.3 L (8.6-10.3) mg/dL Magnesium 2.2 (1.9-2.7) mg/dL Total Bilirubin 0.50 (0.2-1.0) mg/dL AST 20 (13-39) U/L ALT 15 (7-52) U/L Alkaline Phosphatase 49 (34-104) U/L Troponin I 0.01 (<0.04) ng/mL C-Reactive Protein 2.91 (<8.01) mg/L B-Natriuretic Peptide (<=100) pg/mL Total Protein 6.3 L (6.4-8.9) g/dL Albumin 4.0 (3.2-5.2) g/dL Globulin 2.3 (2-4) g/dL Albumin/Globulin Ratio 1.7 (1-3) 02/06/19 Range/Units 17:28 WBC (3.5-10.8) 10^3/uL RBC (3.70-4.87) 10^6 /uL Hgb (12.0-16.0) g/dL Hct (35-47) % MCV (80-97) fL MCH (27-31) pg MCHC (31-36) g/dL RDW (10-15) % Plt Count (150-450) 10^3/uL MPV (7.4-10.4) fL Neut % (Auto) % Lymph % (Auto) % [place] % (Auto) % Eos % (Auto) % Baso % (Auto) % Absolute Neuts (auto) (1.5-7.7) 10^3/ul Absolute Lymphs (auto) (1.0-4.8) 10^3/ul Absolute Monos (auto) (0-0.8) 10^3/ul Absolute Eos (auto) (0-0.6) 10^3/ul Absolute Basos (auto) (0-0.2) 10^3/ul Absolute Nucleated RBC 10^3/ul Nucleated RBC % Sodium (135-145) mmol/L Potassium (3.5-5.0) mmol/L Chloride (101-111) mmol/L Carbon Dioxide (22-32) mmol/L Anion Gap (2-11) mmol/L BUN (6-24) mg/dL Creatinine (0.51-0.95) mg/dL Est GFR ( Amer) (>60) Est GFR (Non-Af Amer) (>60) BUN/Creatinine Ratio (8-20) Glucose (70-100) mg/dL Lactic Acid (0.5-2.0) mmol/L Calcium (8.6-10.3) mg/dL Magnesium (1.9-2.7) mg/dL Total Bilirubin (0.2-1.0) mg/dL AST (13-39) U/L ALT (7-52) U/L Alkaline Phosphatase (34-104) U/L Troponin I (<0.04) ng/mL C-Reactive Protein (<8.01) mg/L B-Natriuretic Peptide 31 (<=100) pg/mL Total Protein (6.4-8.9) g/dL Albumin (3.2-5.2) g/dL Globulin (2-4) g/dL Albumin/Globulin Ratio (1-3) Microbiology and Other Data: Microbiology 02/06/19 20:50 Gram Stain - Final Sputum 02/06/19 22:00 Legionella Urinary Antigen - Final Urine Negative Legionella Antigen Streptococcus pneumoniae Ag Screen - Final Negative S. pneumo Antigen Assess/Plan/Problems-Billing Assessment: 73 yo female with PMHx COPD with frequent exacerbations, MS, anxiety, and remote hx of PE presents with SOB and increased sputum production. - Patient Problems (1) COPD with acute exacerbation Comment: -Continued cough, wheeze -Solu-medrol now with plans to transition when wheeze improves -continue ceftriaxone and azithromycin due to increased sputum production and initial hypoxia -sputum culture pending -continue scheduled duonebs -patient was on Anoro ellipta in the past and is only using duoneb once in the morning at home. Anoro was not helpful for her because she had poor inhaler technique and felt the powder in her mouth. Discussed with Dr. Lowe and she felt it was reasonable to start bevespi. I will order this to start tomorrow so patient can have RT education (2) Acute respiratory failure with hypoxia Comment: -Presenting with SOB, increasing sputum production, and O2 sat of 85% at doctor' s office -[facility] d/t due to COPD exacerbation -no pneumonia, PE ruled out with CTA -saturating well on 2L, will attempt to wean -symptomatic improvement of SOB -continue IV solu-medrol with plans to transition to PO with improvement of wheezing (3) Multiple sclerosis Comment: - Continue Baclofen, lyrica - We have 350 mg carisoprodol on formulary and will receive that prn while inpatient. Will return to regular home dose of 250 mg upon discharge (4) SVT (supraventricular tachycardia) Comment: -patient found to have intermittent SVT during hospitalization in October 2018 -home diltiazem ordered (5) Anxiety Comment: -cont home venlafaxine (6) DVT prophylaxis Comment: -continue lovenox (7) Full code status Status and Disposition: Inpatient. Anticipate d/c home when medically improved.
[2019-02-08] MEDS: Benzonatate CAP* 100 MG PO PRN (14:29)
[2019-02-08] MEDS: methylPREDNISolone 125 MG* 2 ML VIAL IV SCH ×2 (14:29→21:41)
[2019-02-08] MEDS: guaiFENesin ER TAB 600 MG PO SCH (21:40)
[2019-02-08] MEDS: cefTRIAXone(*) 1 GM in NS 0.9% 50 ML* 50 ML IVPB SCH (21:42)
[2019-02-08] MEDS: Enoxaparin(*) 40 MG/0.4 ML SYR SUBCUT SCH (21:43)
[2019-02-08] MEDS: Azithromycin 500 mg/250 ml NS 500 MG/250 ML BAG IVPB SCH (23:05)
[2019-02-09] MEDS: Albuterol/Ipratropium NEB.SOL* Albuterol 2.5 MG/Ipratropium 0.5 MG 3 ML INH SCH ×4 (00:44→19:07)
[2019-02-09] MEDS: methylPREDNISolone 125 MG* 2 ML VIAL IV SCH ×3 (05:24→23:31)
[2019-02-09] MEDS: Tiotropium Brom/Olodaterol MDI INH SCH (07:27)
[2019-02-09] MEDS: guaiFENesin ER TAB 600 MG PO SCH ×2 (08:35→23:00)
[2019-02-09] MEDS: Pregabalin CAP(*) 100 MG PO SCH ×3 (08:35→22:59)
[2019-02-09] MEDS: Venlafaxine EXT RELEASE CAP* 75 MG PO SCH (08:35)
[2019-02-09] MEDS: Diltiazem CD CAP* 120 MG PO SCH (08:35)
[2019-02-09] MEDS: Atorvastatin* 20 MG TAB PO SCH (08:35)
--- NOTE | 2019-02-09 14:29 | PN ---
Subjective Date of Service: 02/09/19 Interval History: Pt continues to have loose cough that is only occasionally productive. She is on O2 3L currently and continues to c/o SOB, wheeze. She feels warm at times, cold at times, but denies overt chills or sweats. She denies fever. She has no other complaints today. Objective Active Medications: Albuterol (Ventolin 2.5 Mg/3 Ml Neb.Jenna*) 2.5 mg INH [id number] AWAKE PRN PRN Reason: sob/wheeze Last Admin: 02/09/19 03:40 Dose: 2.5 mg Albuterol/Ipratropium (Duoneb (Albuterol 2.5 Mg/Ipratropium 0.5 Mg)) 1 neb INH [id number] AWAKE [facility] Last Admin: 02/09/19 13:37 Dose: 1 neb Alprazolam (Xanax Tab*) 0.25 mg PO DAILY PRN PRN Reason: ANXIETY Atorvastatin Calcium (Lipitor*) 20 mg PO DAILY [facility] Last Admin: 02/09/19 08:35 Dose: 20 mg Baclofen (Lioresal Tab*) 5 mg PO BID PRN PRN Reason: SPASMS Last Admin: 02/07/19 23:09 Dose: 5 mg Benzonatate (Tessalon Cap*) 100 mg PO BID PRN PRN Reason: COUGH Last Admin: 02/08/19 14:29 Dose: 100 mg Calcium Carbonate (Tums*) 500 mg PO Q4H PRN PRN Reason: DYSPEPSIA Last Admin: 02/07/19 23:10 Dose: 500 mg Carisoprodol (Soma Tab*) 350 mg PO DAILY PRN PRN Reason: PAIN - MODERATE Diltiazem HCl (Cardizem Cd Cap*) 120 mg PO DAILY [facility] Last Admin: 02/09/19 08:35 Dose: 120 mg Enoxaparin Sodium (Lovenox(*)) 40 mg SUBCUT Q24H [facility] Last Admin: 02/08/19 21:43 Dose: 40 mg Guaifenesin (Mucinex*) 600 mg PO BID [facility] Last Admin: 02/09/19 08:35 Dose: 600 mg Azithromycin (Zithromax 500 Mg/250 Ml) 500 mg in 250 mls @ 250 mls/hr IVPB Q24H [facility] Last Admin: 02/08/19 23:05 Dose: 250 mls/hr Ceftriaxone Sodium 1 gm/ (Sodium Chloride) 50 mls @ 100 mls/hr IVPB Q24H [facility] Last Admin: 02/08/19 21:42 Dose: 100 mls/hr Methylprednisolone Sodium Succinate (Solu-Medrol 125mg *) 60 mg IV Q8H [facility] Last Admin: 02/09/19 05:24 Dose: 60 mg Pregabalin (Lyrica Cap(*)) 100 mg PO TID [facility] Last Admin: 02/09/19 08:35 Dose: 100 mg Tiotropium [place]/Olodaterol (Stiolto Respimat Inh [place] (60 Puff)) 2 puff INH DAILY [facility] Last Admin: 02/09/19 07:27 Dose: 2 puff Venlafaxine HCl (Effexor Xr Cap*) 150 mg PO DAILY [facility] Last Admin: 02/09/19 08:35 Dose: 150 mg Vital Signs: Temp Pulse Resp BP Pulse Ox 97.6 F 109 18 141/95 86 02/09/19 11:15 02/09/19 13:43 02/09/19 17:00 02/09/19 11:15 02/09/19 13:43 Oxygen Devices in Use Now: Nasal Cannula Appearance: Pleasant 73yof; mild increased work of breathing with intermittent pursed lip breathing. Eyes: No Scleral Icterus, PERRLA Ears/Nose/Mouth/Throat: NL Teeth, Lips, Gums, Clear Oropharnyx, Mucous Membranes Moist Neck: NL Appearance and Movements; NL JVP Respiratory: - - Mildy increase work of breathing; pursed lip breathing. B/l lungs with diffuse end expiratory wheeze. Cardiovascular: NL Sounds; No Murmurs; No JVD, RRR, No Edema Abdominal: NL Sounds; No Tenderness; No Distention, No Hepatosplenomegaly Extremities: No Edema, No Clubbing, Cyanosis Neurological: Alert and Oriented x 3 Result Diagrams: 02/07/19 05:41 02/07/19 05:41 Additional Lab and Data: Lab Results 02/06/19 02/06/19 02/06/19 Range/Units 17:28 17:28 17:28 WBC 9.2 (3.5-10.8) 10^3/uL RBC 5.04 H (3.70-4.87) 10^6 /uL Hgb 15.9 (12.0-16.0) g/dL Hct 48 H (35-47) % MCV 95 (80-97) fL MCH 32 H (27-31) pg MCHC 33 (31-36) g/dL RDW 15 (10-15) % Plt Count 206 (150-450) 10^3/uL MPV 7.3 L (7.4-10.4) fL Neut % (Auto) 83.7 % Lymph % (Auto) 7.5 % [place] % (Auto) 6.5 % Eos % (Auto) 1.9 % Baso % (Auto) 0.4 % Absolute Neuts (auto) 7.7 (1.5-7.7) 10^3/ul Absolute Lymphs (auto) 0.7 L (1.0-4.8) 10^3/ul Absolute Monos (auto) 0.6 (0-0.8) 10^3/ul Absolute Eos (auto) 0.2 (0-0.6) 10^3/ul Absolute Basos (auto) 0.0 (0-0.2) 10^3/ul Absolute Nucleated RBC 0.0 10^3/ul Nucleated RBC % 0.0 Sodium 136 (135-145) mmol/L Potassium 3.7 (3.5-5.0) mmol/L Chloride 104 (101-111) mmol/L Carbon Dioxide 24 (22-32) mmol/L Anion Gap 8 (2-11) mmol/L BUN 12 (6-24) mg/dL Creatinine 0.57 (0.51-0.95) mg/dL Est GFR ( Amer) 126.2 (>60) Est GFR (Non-Af Amer) 104.3 (>60) BUN/Creatinine Ratio 21.1 H (8-20) Glucose 122 H (70-100) mg/dL Lactic Acid 1.1 (0.5-2.0) mmol/L Calcium 8.3 L (8.6-10.3) mg/dL Magnesium 2.2 (1.9-2.7) mg/dL Total Bilirubin 0.50 (0.2-1.0) mg/dL AST 20 (13-39) U/L ALT 15 (7-52) U/L Alkaline Phosphatase 49 (34-104) U/L Troponin I 0.01 (<0.04) ng/mL C-Reactive Protein 2.91 (<8.01) mg/L B-Natriuretic Peptide (<=100) pg/mL Total Protein 6.3 L (6.4-8.9) g/dL Albumin 4.0 (3.2-5.2) g/dL Globulin 2.3 (2-4) g/dL Albumin/Globulin Ratio 1.7 (1-3) 02/06/19 Range/Units 17:28 WBC (3.5-10.8) 10^3/uL RBC (3.70-4.87) 10^6 /uL Hgb (12.0-16.0) g/dL Hct (35-47) % MCV (80-97) fL MCH (27-31) pg MCHC (31-36) g/dL RDW (10-15) % Plt Count (150-450) 10^3/uL MPV (7.4-10.4) fL Neut % (Auto) % Lymph % (Auto) % [place] % (Auto) % Eos % (Auto) % Baso % (Auto) % Absolute Neuts (auto) (1.5-7.7) 10^3/ul Absolute Lymphs (auto) (1.0-4.8) 10^3/ul Absolute Monos (auto) (0-0.8) 10^3/ul Absolute Eos (auto) (0-0.6) 10^3/ul Absolute Basos (auto) (0-0.2) 10^3/ul Absolute Nucleated RBC 10^3/ul Nucleated RBC % Sodium (135-145) mmol/L Potassium (3.5-5.0) mmol/L Chloride (101-111) mmol/L Carbon Dioxide (22-32) mmol/L Anion Gap (2-11) mmol/L BUN (6-24) mg/dL Creatinine (0.51-0.95) mg/dL Est GFR ( Amer) (>60) Est GFR (Non-Af Amer) (>60) BUN/Creatinine Ratio (8-20) Glucose (70-100) mg/dL Lactic Acid (0.5-2.0) mmol/L Calcium (8.6-10.3) mg/dL Magnesium (1.9-2.7) mg/dL Total Bilirubin (0.2-1.0) mg/dL AST (13-39) U/L ALT (7-52) U/L Alkaline Phosphatase (34-104) U/L Troponin I (<0.04) ng/mL C-Reactive Protein (<8.01) mg/L B-Natriuretic Peptide 31 (<=100) pg/mL Total Protein (6.4-8.9) g/dL Albumin (3.2-5.2) g/dL Globulin (2-4) g/dL Albumin/Globulin Ratio (1-3) Microbiology and Other Data: Microbiology 02/06/19 20:50 Gram Stain - Final Sputum 02/06/19 22:00 Legionella Urinary Antigen - Final Urine Negative Legionella Antigen Streptococcus pneumoniae Ag Screen - Final Negative S. pneumo Antigen Assess/Plan/Problems-Billing Assessment: 73 yo female with PMHx COPD with frequent exacerbations, MS, anxiety, and remote hx of PE presents with SOB and increased sputum production. - Patient Problems (1) COPD with acute exacerbation Comment: -Continued cough, wheeze -Continue solu-medrol with plans to transition when wheeze improves -continue ceftriaxone and azithromycin due to increased sputum production and hypoxia -sputum culture : normal shaggy -continue scheduled duonebs with flutter valve -patient was on Anoro ellipta in the past and is only using duoneb once in the morning at home. Anoro was not helpful for her because she had poor inhaler technique and felt the powder in her mouth. Discussed with Dr. Lowe and she felt it was reasonable to start bevespi. I will order this to start tomorrow so patient can have RT education -Mucinex, tessalon perles prn (2) Acute respiratory failure with hypoxia Comment: -Presenting with SOB, increasing sputum production, and O2 sat of 85% at doctor' s office -[facility] d/t due to COPD exacerbation -no pneumonia, PE ruled out with CTA -saturating well on 2L, will attempt to wean -symptomatic improvement of SOB -continue IV solu-medrol with plans to transition to PO with improvement of wheezing (3) Multiple sclerosis Comment: - Continue Baclofen, lyrica - We have 350 mg carisoprodol on formulary and will receive that prn while inpatient. Will return to regular home dose of 250 mg upon discharge (4) SVT (supraventricular tachycardia) Comment: -patient found to have intermittent SVT during hospitalization in October 2018 -home diltiazem ordered (5) Anxiety Comment: -cont home venlafaxine (6) DVT prophylaxis Comment: -continue lovenox (7) Full code status Status and Disposition: Inpatient. Anticipate d/c home when medically improved.
[2019-02-09] MEDS: cefTRIAXone(*) 1 GM in NS 0.9% 50 ML* 50 ML IVPB SCH (23:01)
[2019-02-09] MEDS: Enoxaparin(*) 40 MG/0.4 ML SYR SUBCUT SCH (23:09)
[2019-02-10] MEDS: Azithromycin 500 mg/250 ml NS 500 MG/250 ML BAG IVPB SCH (00:05)
[2019-02-10] MEDS: Albuterol/Ipratropium NEB.SOL* Albuterol 2.5 MG/Ipratropium 0.5 MG 3 ML INH SCH ×4 (01:20→19:25)
[2019-02-10] MEDS: Baclofen TAB* 10 MG PO PRN (03:36)
[2019-02-10 06:18] LABS: Hematocrit 40 % (35-47); Hemoglobin 14.2 g/dL (12.0-16.0); Mean Corpuscular HGB Conc 35 g/dL (31-36); Mean Corpuscular Hemoglobin 33 pg (27-31); Mean Corpuscular Volume 92 fL (80-97); Mean Platelet Volume 7.8 fL (7.4-10.4); Platelet Count 239 10^3/uL (150-450); Red Blood Count 4.34 10^6 /uL (3.70-4.87); Red Cell Distribution Width 14 % (10-15); White Blood Count 10.2 10^3/uL (3.5-10.8)
[2019-02-10] MEDS: methylPREDNISolone 125 MG* 2 ML VIAL IV SCH ×2 (06:22→17:53)
[2019-02-10 06:32] LABS: BUN/Creatinine Ratio 28.6 (8-20); Calcium 8.1 mg/dL (8.6-10.3); EGFR African American 179.5 (>60); EGFR Non-African American 148.3 (>60); Potassium 3.6 mmol/L (3.5-5.0)
[2019-02-10] MEDS: Tiotropium Brom/Olodaterol MDI INH SCH (07:50)
[2019-02-10] MEDS: Pregabalin CAP(*) 100 MG PO SCH ×3 (09:28→21:43)
[2019-02-10] MEDS: guaiFENesin ER TAB 600 MG PO SCH ×2 (09:29→21:44)
[2019-02-10] MEDS: Diltiazem CD CAP* 120 MG PO SCH (09:30)
[2019-02-10] MEDS: Atorvastatin* 20 MG TAB PO SCH (09:30)
[2019-02-10] MEDS: Venlafaxine EXT RELEASE CAP* 75 MG PO SCH (09:30)
--- NOTE | 2019-02-10 16:25 | PN ---
Subjective Date of Service: 02/10/19 Interval History: Pt states she feels "pretty much the same." She continues to have SOB, especially with exertion, but is able to maintain O2 sats while ambulating without oxygen. She states it felt good to walk. She does not difficulty with sleep last night, stating that it was loud in the hallway. She continues to have a loose, more productive cough. She feels that her wheeze is the same. No other complaints today. Objective Active Medications: Albuterol (Ventolin 2.5 Mg/3 Ml Neb.Jenna*) 2.5 mg INH [id number] AWAKE PRN PRN Reason: sob/wheeze Last Admin: 02/09/19 03:40 Dose: 2.5 mg Albuterol/Ipratropium (Duoneb (Albuterol 2.5 Mg/Ipratropium 0.5 Mg)) 1 neb INH [id number] AWAKE [facility] Last Admin: 02/10/19 14:11 Dose: 1 neb Alprazolam (Xanax Tab*) 0.25 mg PO DAILY PRN PRN Reason: ANXIETY Atorvastatin Calcium (Lipitor*) 20 mg PO DAILY [facility] Last Admin: 02/10/19 09:30 Dose: 20 mg Azithromycin (Zithromax Tab*) 250 mg PO DAILY [facility] Stop: 02/11/19 09:01 Baclofen (Lioresal Tab*) 5 mg PO BID PRN PRN Reason: SPASMS Last Admin: 02/10/19 03:36 Dose: 5 mg Benzonatate (Tessalon Cap*) 100 mg PO BID PRN PRN Reason: COUGH Last Admin: 02/08/19 14:29 Dose: 100 mg Calcium Carbonate (Tums*) 500 mg PO Q4H PRN PRN Reason: DYSPEPSIA Last Admin: 02/07/19 23:10 Dose: 500 mg Carisoprodol (Soma Tab*) 350 mg PO DAILY PRN PRN Reason: PAIN - MODERATE Diltiazem HCl (Cardizem Cd Cap*) 120 mg PO DAILY [facility] Last Admin: 02/10/19 09:30 Dose: 120 mg Enoxaparin Sodium (Lovenox(*)) 40 mg SUBCUT Q24H [facility] Last Admin: 02/09/19 23:09 Dose: 40 mg Guaifenesin (Mucinex*) 600 mg PO BID [facility] Last Admin: 02/10/19 09:29 Dose: 600 mg Ceftriaxone Sodium 1 gm/ (Sodium Chloride) 50 mls @ 100 mls/hr IVPB Q24H [facility] Last Admin: 02/09/19 23:01 Dose: 100 mls/hr Methylprednisolone Sodium Succinate (Solu-Medrol 125mg *) 60 mg IV Q12H [facility] Pregabalin (Lyrica Cap(*)) 100 mg PO TID [facility] Last Admin: 02/10/19 13:42 Dose: 100 mg Tiotropium [place]/Olodaterol (Stiolto Respimat Inh [place] (60 Puff)) 2 puff INH DAILY [facility] Last Admin: 02/10/19 07:50 Dose: 2 puff Venlafaxine HCl (Effexor Xr Cap*) 150 mg PO DAILY [facility] Last Admin: 02/10/19 09:30 Dose: 150 mg Vital Signs: Temp Pulse Resp BP Pulse Ox 98.4 F 90 16 159/76 92 02/10/19 11:02 02/10/19 14:19 02/10/19 14:19 02/10/19 11:02 02/10/19 14:19 Oxygen Devices in Use Now: Nasal Cannula Appearance: Pt is sitting up in bed with some work of breathing, pursed lips. No O2 in place currently. Eyes: No Scleral Icterus, PERRLA Ears/Nose/Mouth/Throat: NL Teeth, Lips, Gums, Clear Oropharnyx, Mucous Membranes Moist Neck: NL Appearance and Movements; NL JVP, Trachea Midline Respiratory: - - Some pursed lip breathing; pt with end expiratory wheeze, decreased breath sounds. Cardiovascular: NL Sounds; No Murmurs; No JVD, RRR, No Edema Abdominal: NL Sounds; No Tenderness; No Distention, No Hepatosplenomegaly Extremities: No Edema, No Clubbing, Cyanosis Neurological: Alert and Oriented x 3 Result Diagrams: 02/10/19 05:57 02/10/19 05:57 Additional Lab and Data: Lab Results 02/06/19 02/06/19 02/06/19 Range/Units 17:28 17:28 17:28 WBC 9.2 (3.5-10.8) 10^3/uL RBC 5.04 H (3.70-4.87) 10^6 /uL Hgb 15.9 (12.0-16.0) g/dL Hct 48 H (35-47) % MCV 95 (80-97) fL MCH 32 H (27-31) pg MCHC 33 (31-36) g/dL RDW 15 (10-15) % Plt Count 206 (150-450) 10^3/uL MPV 7.3 L (7.4-10.4) fL Neut % (Auto) 83.7 % Lymph % (Auto) 7.5 % [place] % (Auto) 6.5 % Eos % (Auto) 1.9 % Baso % (Auto) 0.4 % Absolute Neuts (auto) 7.7 (1.5-7.7) 10^3/ul Absolute Lymphs (auto) 0.7 L (1.0-4.8) 10^3/ul Absolute Monos (auto) 0.6 (0-0.8) 10^3/ul Absolute Eos (auto) 0.2 (0-0.6) 10^3/ul Absolute Basos (auto) 0.0 (0-0.2) 10^3/ul Absolute Nucleated RBC 0.0 10^3/ul Nucleated RBC % 0.0 Sodium 136 (135-145) mmol/L Potassium 3.7 (3.5-5.0) mmol/L Chloride 104 (101-111) mmol/L Carbon Dioxide 24 (22-32) mmol/L Anion Gap 8 (2-11) mmol/L BUN 12 (6-24) mg/dL Creatinine 0.57 (0.51-0.95) mg/dL Est GFR ( Amer) 126.2 (>60) Est GFR (Non-Af Amer) 104.3 (>60) BUN/Creatinine Ratio 21.1 H (8-20) Glucose 122 H (70-100) mg/dL Lactic Acid 1.1 (0.5-2.0) mmol/L Calcium 8.3 L (8.6-10.3) mg/dL Magnesium 2.2 (1.9-2.7) mg/dL Total Bilirubin 0.50 (0.2-1.0) mg/dL AST 20 (13-39) U/L ALT 15 (7-52) U/L Alkaline Phosphatase 49 (34-104) U/L Troponin I 0.01 (<0.04) ng/mL C-Reactive Protein 2.91 (<8.01) mg/L B-Natriuretic Peptide (<=100) pg/mL Total Protein 6.3 L (6.4-8.9) g/dL Albumin 4.0 (3.2-5.2) g/dL Globulin 2.3 (2-4) g/dL Albumin/Globulin Ratio 1.7 (1-3) 02/06/19 Range/Units 17:28 WBC (3.5-10.8) 10^3/uL RBC (3.70-4.87) 10^6 /uL Hgb (12.0-16.0) g/dL Hct (35-47) % MCV (80-97) fL MCH (27-31) pg MCHC (31-36) g/dL RDW (10-15) % Plt Count (150-450) 10^3/uL MPV (7.4-10.4) fL Neut % (Auto) % Lymph % (Auto) % [place] % (Auto) % Eos % (Auto) % Baso % (Auto) % Absolute Neuts (auto) (1.5-7.7) 10^3/ul Absolute Lymphs (auto) (1.0-4.8) 10^3/ul Absolute Monos (auto) (0-0.8) 10^3/ul Absolute Eos (auto) (0-0.6) 10^3/ul Absolute Basos (auto) (0-0.2) 10^3/ul Absolute Nucleated RBC 10^3/ul Nucleated RBC % Sodium (135-145) mmol/L Potassium (3.5-5.0) mmol/L Chloride (101-111) mmol/L Carbon Dioxide (22-32) mmol/L Anion Gap (2-11) mmol/L BUN (6-24) mg/dL Creatinine (0.51-0.95) mg/dL Est GFR ( Amer) (>60) Est GFR (Non-Af Amer) (>60) BUN/Creatinine Ratio (8-20) Glucose (70-100) mg/dL Lactic Acid (0.5-2.0) mmol/L Calcium (8.6-10.3) mg/dL Magnesium (1.9-2.7) mg/dL Total Bilirubin (0.2-1.0) mg/dL AST (13-39) U/L ALT (7-52) U/L Alkaline Phosphatase (34-104) U/L Troponin I (<0.04) ng/mL C-Reactive Protein (<8.01) mg/L B-Natriuretic Peptide 31 (<=100) pg/mL Total Protein (6.4-8.9) g/dL Albumin (3.2-5.2) g/dL Globulin (2-4) g/dL Albumin/Globulin Ratio (1-3) Microbiology and Other Data: Microbiology 02/06/19 20:50 Gram Stain - Final Sputum 02/06/19 22:00 Legionella Urinary Antigen - Final Urine Negative Legionella Antigen Streptococcus pneumoniae Ag Screen - Final Negative S. pneumo Antigen Assess/Plan/Problems-Billing Assessment: 73 yo female with PMHx COPD with frequent exacerbations, MS, anxiety, and remote hx of PE presents with SOB and increased sputum production. - Patient Problems (1) COPD with acute exacerbation Comment: -Continued cough, wheeze improved -Continue solu-medrol, reduce to q12h -continue azithromycin for a total of 5 doses -discontinue ceftriaxone -sputum culture: normal shaggy -continue scheduled duonebs with flutter valve -patient was on Anoro ellipta in the past and is only using duoneb once in the morning at home. Anoro was not helpful for her because she had poor inhaler technique and felt the powder in her mouth. Discussed with Dr. Lowe and she felt it was reasonable to start bevespi. I will order this to start tomorrow so patient can have RT education -Mucinexwilliames prn (2) Acute respiratory failure with hypoxia Comment: -Presenting with SOB, increasing sputum production, and O2 sat of 85% at doctor' s office -[facility] d/t due to COPD exacerbation -no pneumonia, PE ruled out with CTA -Pt with good O2 sat on room air -symptomatic improvement of SOB -continue IV solu-medrol at q12h with plans to transition to PO (3) Multiple sclerosis Comment: - Continue Baclofen, lyrica - We have 350 mg carisoprodol on formulary and will receive that prn while inpatient. Will return to regular home dose of 250 mg upon discharge (4) SVT (supraventricular tachycardia) Comment: -patient found to have intermittent SVT during hospitalization in October 2018 -home diltiazem ordered (5) Anxiety Comment: -cont home venlafaxine (6) DVT prophylaxis Comment: -continue lovenox (7) Full code status Status and Disposition: Inpatient. Anticipate d/c home when medically improved.
[2019-02-10] MEDS: Benzonatate CAP* 100 MG PO PRN (21:44)
[2019-02-10] MEDS: Enoxaparin(*) 40 MG/0.4 ML SYR SUBCUT SCH (21:44)
[2019-02-10] MEDS: cefTRIAXone(*) 1 GM in NS 0.9% 50 ML* 50 ML IVPB SCH (21:49)
[2019-02-11] MEDS: Albuterol/Ipratropium NEB.SOL* Albuterol 2.5 MG/Ipratropium 0.5 MG 3 ML INH SCH ×4 (01:19→19:18)
[2019-02-11] MEDS: methylPREDNISolone 125 MG* 2 ML VIAL IV SCH ×2 (06:20→18:40)
[2019-02-11] MEDS: Tiotropium Brom/Olodaterol MDI INH SCH (07:38)
[2019-02-11] MEDS ORDERED: Azithromycin TAB* 250 MG PO SCH (09:00)
[2019-02-11] MEDS: Diltiazem CD CAP* 120 MG PO SCH (09:44)
[2019-02-11] MEDS: Pregabalin CAP(*) 100 MG PO SCH ×3 (09:44→21:02)
[2019-02-11] MEDS: Venlafaxine EXT RELEASE CAP* 75 MG PO SCH (09:44)
[2019-02-11] MEDS: Atorvastatin* 20 MG TAB PO SCH (09:44)
[2019-02-11] MEDS: guaiFENesin ER TAB 600 MG PO SCH ×2 (09:44→21:02)
--- NOTE | 2019-02-11 09:47 | PN ---
Subjective Date of Service: 02/11/19 Interval History: Pt doing well today. She notes decrease in productive cough, continued wheeze, and SOB with ambulation. She is able to ambulate with sats > 92% without O2, but seems to feel more comfortable with O2 in place. She is currently on 1L O2. She believes she has COPD exacerbation q3mo and is hospitalized approximately 3x/year for this. She notes she had poor sleep last night and is a bit tired. No other complaints today. Objective Active Medications: Albuterol (Ventolin 2.5 Mg/3 Ml Neb.Jenna*) 2.5 mg INH [id number] AWAKE PRN Albuterol/Ipratropium (Duoneb (Albuterol 2.5 Mg/Ipratropium 0.5 Mg)) 1 neb INH [id number] AWAKE [facility] Alprazolam (Xanax Tab*) 0.25 mg PO DAILY PRN Atorvastatin Calcium (Lipitor*) 20 mg PO DAILY [facility] Baclofen (Lioresal Tab*) 5 mg PO BID PRN Benzonatate (Tessalon Cap*) 100 mg PO BID PRN Calcium Carbonate (Tums*) 500 mg PO Q4H PRN Carisoprodol (Soma Tab*) 350 mg PO DAILY PRN Diltiazem HCl (Cardizem Cd Cap*) 120 mg PO DAILY [facility] Enoxaparin Sodium (Lovenox(*)) 40 mg SUBCUT Q24H [facility] Guaifenesin (Mucinex*) 600 mg PO BID [facility] Methylprednisolone Sodium Succinate (Solu-Medrol 125mg *) 60 mg IV Q12H [facility] Pregabalin (Lyrica Cap(*)) 100 mg PO TID [facility] Tiotropium [place]/Olodaterol (Stiolto Respimat Inh [place] (60 Puff)) 2 puff INH DAILY [facility] Venlafaxine HCl (Effexor Xr Cap*) 150 mg PO DAILY [facility] Vital Signs: Temp Pulse Resp BP Pulse Ox 97.1 F 97 18 151/84 95 02/11/19 07:15 02/11/19 13:54 02/11/19 14:38 02/11/19 07:15 02/11/19 13:54 Oxygen Devices in Use Now: Nasal Cannula Appearance: Pt is sitting up in bed; continues to have pursed lip breathing, some increased work of breathing. Otherwise in no acute distress. Eyes: No Scleral Icterus, PERRLA Ears/Nose/Mouth/Throat: NL Teeth, Lips, Gums, Clear Oropharnyx, Mucous Membranes Moist Neck: NL Appearance and Movements; NL JVP, Trachea Midline Respiratory: - - Pursed lip breathing; end expiratory wheeze throughout b/l lungs; decreased breath sounds; no rhonchi, rales Cardiovascular: NL Sounds; No Murmurs; No JVD, RRR, No Edema Abdominal: NL Sounds; No Tenderness; No Distention, No Hepatosplenomegaly Extremities: No Edema, No Clubbing, Cyanosis Neurological: Alert and Oriented x 3 Result Diagrams: 02/10/19 05:57 02/10/19 05:57 Additional Lab and Data: Lab Results 02/06/19 02/06/19 02/06/19 Range/Units 17:28 17:28 17:28 WBC 9.2 (3.5-10.8) 10^3/uL RBC 5.04 H (3.70-4.87) 10^6 /uL Hgb 15.9 (12.0-16.0) g/dL Hct 48 H (35-47) % MCV 95 (80-97) fL MCH 32 H (27-31) pg MCHC 33 (31-36) g/dL RDW 15 (10-15) % Plt Count 206 (150-450) 10^3/uL MPV 7.3 L (7.4-10.4) fL Neut % (Auto) 83.7 % Lymph % (Auto) 7.5 % [place] % (Auto) 6.5 % Eos % (Auto) 1.9 % Baso % (Auto) 0.4 % Absolute Neuts (auto) 7.7 (1.5-7.7) 10^3/ul Absolute Lymphs (auto) 0.7 L (1.0-4.8) 10^3/ul Absolute Monos (auto) 0.6 (0-0.8) 10^3/ul Absolute Eos (auto) 0.2 (0-0.6) 10^3/ul Absolute Basos (auto) 0.0 (0-0.2) 10^3/ul Absolute Nucleated RBC 0.0 10^3/ul Nucleated RBC % 0.0 Sodium 136 (135-145) mmol/L Potassium 3.7 (3.5-5.0) mmol/L Chloride 104 (101-111) mmol/L Carbon Dioxide 24 (22-32) mmol/L Anion Gap 8 (2-11) mmol/L BUN 12 (6-24) mg/dL Creatinine 0.57 (0.51-0.95) mg/dL Est GFR ( Amer) 126.2 (>60) Est GFR (Non-Af Amer) 104.3 (>60) BUN/Creatinine Ratio 21.1 H (8-20) Glucose 122 H (70-100) mg/dL Lactic Acid 1.1 (0.5-2.0) mmol/L Calcium 8.3 L (8.6-10.3) mg/dL Magnesium 2.2 (1.9-2.7) mg/dL Total Bilirubin 0.50 (0.2-1.0) mg/dL AST 20 (13-39) U/L ALT 15 (7-52) U/L Alkaline Phosphatase 49 (34-104) U/L Troponin I 0.01 (<0.04) ng/mL C-Reactive Protein 2.91 (<8.01) mg/L B-Natriuretic Peptide (<=100) pg/mL Total Protein 6.3 L (6.4-8.9) g/dL Albumin 4.0 (3.2-5.2) g/dL Globulin 2.3 (2-4) g/dL Albumin/Globulin Ratio 1.7 (1-3) 02/06/19 Range/Units 17:28 WBC (3.5-10.8) 10^3/uL RBC (3.70-4.87) 10^6 /uL Hgb (12.0-16.0) g/dL Hct (35-47) % MCV (80-97) fL MCH (27-31) pg MCHC (31-36) g/dL RDW (10-15) % Plt Count (150-450) 10^3/uL MPV (7.4-10.4) fL Neut % (Auto) % Lymph % (Auto) % [place] % (Auto) % Eos % (Auto) % Baso % (Auto) % Absolute Neuts (auto) (1.5-7.7) 10^3/ul Absolute Lymphs (auto) (1.0-4.8) 10^3/ul Absolute Monos (auto) (0-0.8) 10^3/ul Absolute Eos (auto) (0-0.6) 10^3/ul Absolute Basos (auto) (0-0.2) 10^3/ul Absolute Nucleated RBC 10^3/ul Nucleated RBC % Sodium (135-145) mmol/L Potassium (3.5-5.0) mmol/L Chloride (101-111) mmol/L Carbon Dioxide (22-32) mmol/L Anion Gap (2-11) mmol/L BUN (6-24) mg/dL Creatinine (0.51-0.95) mg/dL Est GFR ( Amer) (>60) Est GFR (Non-Af Amer) (>60) BUN/Creatinine Ratio (8-20) Glucose (70-100) mg/dL Lactic Acid (0.5-2.0) mmol/L Calcium (8.6-10.3) mg/dL Magnesium (1.9-2.7) mg/dL Total Bilirubin (0.2-1.0) mg/dL AST (13-39) U/L ALT (7-52) U/L Alkaline Phosphatase (34-104) U/L Troponin I (<0.04) ng/mL C-Reactive Protein (<8.01) mg/L B-Natriuretic Peptide 31 (<=100) pg/mL Total Protein (6.4-8.9) g/dL Albumin (3.2-5.2) g/dL Globulin (2-4) g/dL Albumin/Globulin Ratio (1-3) Microbiology and Other Data: Microbiology 02/06/19 20:50 Gram Stain - Final Sputum 02/06/19 22:00 Legionella Urinary Antigen - Final Urine Negative Legionella Antigen Streptococcus pneumoniae Ag Screen - Final Negative S. pneumo Antigen Assess/Plan/Problems-Billing Assessment: 73 yo female with PMHx COPD with frequent exacerbations, MS, anxiety, and remote hx of PE presents with SOB and increased sputum production. - Patient Problems (1) COPD with acute exacerbation Comment: -Continued cough, wheeze improved -Continue solu-medrol q12h -continue azithromycin for a total of 5 doses -discontinue ceftriaxone -sputum culture: normal shaggy; BC NGTD -continue scheduled duonebs with flutter valve -patient was on Anoro ellipta in the past and is only using duoneb once in the morning at home. Anoro was not helpful for her because she had poor inhaler technique and felt the powder in her mouth. Discussed with Dr. Lowe and she felt it was reasonable to start bevespi. -Mucinex, tessalon perles prn (2) Acute respiratory failure with hypoxia Comment: -Presenting with SOB, increasing sputum production, and O2 sat of 85% at doctor' s office [facility] d/t due to COPD exacerbation -no pneumonia, PE ruled out with CTA -Pt with good O2 sat on room air; continue to encourage room air over NC -symptomatic improvement of SOB -continue IV solu-medrol at q12h with plans to transition to PO (3) Multiple sclerosis Comment: - Continue Baclofen, lyrica - We have 350 mg carisoprodol on formulary and will receive that prn while inpatient. Will return to regular home dose of 250 mg upon discharge (4) SVT (supraventricular tachycardia) Comment: -patient found to have intermittent SVT during hospitalization in October 2018 -home diltiazem ordered (5) Anxiety Comment: -cont home venlafaxine (6) DVT prophylaxis Comment: -continue lovenox (7) Full code status Status and Disposition: Inpatient. Anticipate d/c home when medically improved.
[2019-02-11] MEDS: Enoxaparin(*) 40 MG/0.4 ML SYR SUBCUT SCH (21:02)
[2019-02-12] MEDS: Albuterol/Ipratropium NEB.SOL* Albuterol 2.5 MG/Ipratropium 0.5 MG 3 ML INH SCH ×4 (01:33→20:38)
[2019-02-12] MEDS: methylPREDNISolone 125 MG* 2 ML VIAL IV SCH ×2 (05:55→17:18)
[2019-02-12] MEDS: Tiotropium Brom/Olodaterol MDI INH SCH (07:05)
[2019-02-12] MEDS: Pregabalin CAP(*) 100 MG PO SCH ×3 (08:06→20:31)
[2019-02-12] MEDS: guaiFENesin ER TAB 600 MG PO SCH ×2 (08:07→20:31)
[2019-02-12] MEDS: Atorvastatin* 20 MG TAB PO SCH (08:07)
[2019-02-12] MEDS: Venlafaxine EXT RELEASE CAP* 75 MG PO SCH (08:07)
[2019-02-12] MEDS: Diltiazem CD CAP* 120 MG PO SCH (08:07)
--- NOTE | 2019-02-12 11:24 | PN ---
Subjective Date of Service: 02/12/19 Interval History: Pt reports that she has decreased cough and that shortness of breath has improved. She notes she had an a.m. wheeze, but has felt improved since, although she reports paroxysms of coughing that lead to difficulty catching breath after. She has no other complaints today. Objective Active Medications: Albuterol (Ventolin 2.5 Mg/3 Ml Neb.Jenna*) 2.5 mg INH [id number] AWAKE PRN Albuterol/Ipratropium (Duoneb (Albuterol 2.5 Mg/Ipratropium 0.5 Mg)) 1 neb INH [id number] AWAKE [facility] Alprazolam (Xanax Tab*) 0.25 mg PO DAILY PRN Atorvastatin Calcium (Lipitor*) 20 mg PO DAILY [facility] Baclofen (Lioresal Tab*) 5 mg PO BID PRN Benzonatate (Tessalon Cap*) 100 mg PO BID PRN Calcium Carbonate (Tums*) 500 mg PO Q4H PRN Carisoprodol (Soma Tab*) 350 mg PO DAILY PRN Diltiazem HCl (Cardizem Cd Cap*) 120 mg PO DAILY [facility] Enoxaparin Sodium (Lovenox(*)) 40 mg SUBCUT Q24H [facility] Guaifenesin (Mucinex*) 600 mg PO BID [facility] Methylprednisolone Sodium Succinate (Solu-Medrol 125mg *) 60 mg IV Q12H [facility] Pregabalin (Lyrica Cap(*)) 100 mg PO TID [facility] Tiotropium [place]/Olodaterol (Stiolto Respimat Inh [place] (60 Puff)) 2 puff INH DAILY [facility] Venlafaxine HCl (Effexor Xr Cap*) 150 mg PO DAILY [facility] Vital Signs: Temp Pulse Resp BP Pulse Ox 97.6 F 90 18 157/86 88 02/12/19 07:15 02/12/19 13:12 02/12/19 17:24 02/12/19 07:15 02/12/19 13:12 Oxygen Devices in Use Now: Nasal Cannula Appearance: Pt is sitting in bed. She speaks in complete sentences and pursed lip breathing is intermittent. She has paroxysmal coughing spells, particularly with deep breathing. Eyes: No Scleral Icterus, PERRLA Ears/Nose/Mouth/Throat: NL Teeth, Lips, Gums, Clear Oropharnyx, Mucous Membranes Moist Neck: NL Appearance and Movements; NL JVP, Trachea Midline Respiratory: - - Intermittent pursed lip breathing; able to speak in complete sentences. Wheeze at end expiration. Decreased air exchange. Cardiovascular: NL Sounds; No Murmurs; No JVD, RRR, No Edema Abdominal: NL Sounds; No Tenderness; No Distention, No Hepatosplenomegaly Extremities: No Edema, No Clubbing, Cyanosis Neurological: Alert and Oriented x 3 Result Diagrams: 02/10/19 05:57 02/10/19 05:57 Additional Lab and Data: Lab Results 02/06/19 02/06/19 02/06/19 Range/Units 17:28 17:28 17:28 WBC 9.2 (3.5-10.8) 10^3/uL RBC 5.04 H (3.70-4.87) 10^6 /uL Hgb 15.9 (12.0-16.0) g/dL Hct 48 H (35-47) % MCV 95 (80-97) fL MCH 32 H (27-31) pg MCHC 33 (31-36) g/dL RDW 15 (10-15) % Plt Count 206 (150-450) 10^3/uL MPV 7.3 L (7.4-10.4) fL Neut % (Auto) 83.7 % Lymph % (Auto) 7.5 % [place] % (Auto) 6.5 % Eos % (Auto) 1.9 % Baso % (Auto) 0.4 % Absolute Neuts (auto) 7.7 (1.5-7.7) 10^3/ul Absolute Lymphs (auto) 0.7 L (1.0-4.8) 10^3/ul Absolute Monos (auto) 0.6 (0-0.8) 10^3/ul Absolute Eos (auto) 0.2 (0-0.6) 10^3/ul Absolute Basos (auto) 0.0 (0-0.2) 10^3/ul Absolute Nucleated RBC 0.0 10^3/ul Nucleated RBC % 0.0 Sodium 136 (135-145) mmol/L Potassium 3.7 (3.5-5.0) mmol/L Chloride 104 (101-111) mmol/L Carbon Dioxide 24 (22-32) mmol/L Anion Gap 8 (2-11) mmol/L BUN 12 (6-24) mg/dL Creatinine 0.57 (0.51-0.95) mg/dL Est GFR ( Amer) 126.2 (>60) Est GFR (Non-Af Amer) 104.3 (>60) BUN/Creatinine Ratio 21.1 H (8-20) Glucose 122 H (70-100) mg/dL Lactic Acid 1.1 (0.5-2.0) mmol/L Calcium 8.3 L (8.6-10.3) mg/dL Magnesium 2.2 (1.9-2.7) mg/dL Total Bilirubin 0.50 (0.2-1.0) mg/dL AST 20 (13-39) U/L ALT 15 (7-52) U/L Alkaline Phosphatase 49 (34-104) U/L Troponin I 0.01 (<0.04) ng/mL C-Reactive Protein 2.91 (<8.01) mg/L B-Natriuretic Peptide (<=100) pg/mL Total Protein 6.3 L (6.4-8.9) g/dL Albumin 4.0 (3.2-5.2) g/dL Globulin 2.3 (2-4) g/dL Albumin/Globulin Ratio 1.7 (1-3) 02/06/ Range/Units 17:28 WBC (3.5-10.8) 10^3/uL RBC (3.70-4.87) 10^6 /uL Hgb (12.0-16.0) g/dL Hct (35-47) % MCV (80-97) fL MCH (27-31) pg MCHC (31-36) g/dL RDW (10-15) % Plt Count (150-450) 10^3/uL MPV (7.4-10.4) fL Neut % (Auto) % Lymph % (Auto) % [place] % (Auto) % Eos % (Auto) % Baso % (Auto) % Absolute Neuts (auto) (1.5-7.7) 10^3/ul Absolute Lymphs (auto) (1.0-4.8) 10^3/ul Absolute Monos (auto) (0-0.8) 10^3/ul Absolute Eos (auto) (0-0.6) 10^3/ul Absolute Basos (auto) (0-0.2) 10^3/ul Absolute Nucleated RBC 10^3/ul Nucleated RBC % Sodium (135-145) mmol/L Potassium (3.5-5.0) mmol/L Chloride (101-111) mmol/L Carbon Dioxide (22-32) mmol/L Anion Gap (2-11) mmol/L BUN (6-24) mg/dL Creatinine (0.51-0.95) mg/dL Est GFR ( Amer) (>60) Est GFR (Non-Af Amer) (>60) BUN/Creatinine Ratio (8-20) Glucose (70-100) mg/dL Lactic Acid (0.5-2.0) mmol/L Calcium (8.6-10.3) mg/dL Magnesium (1.9-2.7) mg/dL Total Bilirubin (0.2-1.0) mg/dL AST (13-39) U/L ALT (7-52) U/L Alkaline Phosphatase (34-104) U/L Troponin I (<0.04) ng/mL C-Reactive Protein (<8.01) mg/L B-Natriuretic Peptide 31 (<=100) pg/mL Total Protein (6.4-8.9) g/dL Albumin (3.2-5.2) g/dL Globulin (2-4) g/dL Albumin/Globulin Ratio (1-3) Microbiology and Other Data: Microbiology 02/06/19 20:50 Gram Stain - Final Sputum 02/06/19 22:00 Legionella Urinary Antigen - Final Urine Negative Legionella Antigen Streptococcus pneumoniae Ag Screen - Final Negative S. pneumo Antigen Assess/Plan/Problems-Billing Assessment: 73 yo female with PMHx COPD with frequent exacerbations, MS, anxiety, and remote hx of PE presents with SOB and increased sputum production. - Patient Problems (1) COPD with acute exacerbation Comment: -Continued cough, wheeze improved -Transition from solumedrol to prednisone PO in a.m. -Azithromycin course complete; ceftriaxone d/c -sputum culture: normal shaggy; BC NGTD -continue scheduled duonebs with flutter valve -patient was on Anoro ellipta in the past and is only using duoneb once in the morning at home. Anoro was not helpful for her because she had poor inhaler technique and felt the powder in her mouth. Discussed with Dr. Lowe and she felt it was reasonable to start bevespi. -Mucinex, william perles prn (2) Acute respiratory failure with hypoxia Comment: -Presenting with SOB, increasing sputum production, and O2 sat of 85% at doctor' s office -[facility] d/t due to COPD exacerbation -no pneumonia, PE ruled out with CTA -Pt with good O2 sat on room air; continue to encourage room air over NC -symptomatic improvement of SOB (3) Multiple sclerosis Comment: - Continue Baclofen, lyrica - We have 350 mg carisoprodol on formulary and will receive that prn while inpatient. Will return to regular home dose of 250 mg upon discharge (4) SVT (supraventricular tachycardia) Comment: -patient found to have intermittent SVT during hospitalization in October 2018 -home diltiazem ordered (5) Anxiety Comment: -cont home venlafaxine (6) DVT prophylaxis Comment: -continue lovenox (7) Full code status Status and Disposition: Inpatient. Anticipate d/c home when medically improved.
[2019-02-12] MEDS: Nystatin SUSPENSION* 100000 UNITS/ML 5 ML UDC PO SCH ×2 (17:18→20:31)
[2019-02-12] MEDS: Enoxaparin(*) 40 MG/0.4 ML SYR SUBCUT SCH (20:31)
[2019-02-13] MEDS: Albuterol/Ipratropium NEB.SOL* Albuterol 2.5 MG/Ipratropium 0.5 MG 3 ML INH SCH ×4 (01:25→19:04)
[2019-02-13] MEDS: Baclofen TAB* 10 MG PO PRN (06:18)
[2019-02-13] MEDS: Tiotropium Brom/Olodaterol MDI INH SCH (07:47)
[2019-02-13] MEDS ORDERED: predniSONE TAB* 20 MG PO SCH (09:00)
[2019-02-13] MEDS: Nystatin SUSPENSION* 100000 UNITS/ML 5 ML UDC PO SCH ×3 (09:36→17:39)
[2019-02-13] MEDS: Diltiazem CD CAP* 120 MG PO SCH (09:37)
[2019-02-13] MEDS: guaiFENesin ER TAB 600 MG PO SCH (09:37)
[2019-02-13] MEDS: Venlafaxine EXT RELEASE CAP* 75 MG PO SCH (09:37)
[2019-02-13] MEDS: Pregabalin CAP(*) 100 MG PO SCH ×2 (09:37→13:37)
[2019-02-13] MEDS: Atorvastatin* 20 MG TAB PO SCH (09:37)
[2019-02-13 17:10] VITALS: BP 137/65
--- NOTE | 2019-02-14 02:38 | DS ---
CC: Dr. Lowe * DISCHARGE SUMMARY: DATE OF ADMISSION: 02/06/19 DATE OF DISCHARGE: 02/13/19 ATTENDING PHYSICIAN WHILE IN THE HOSPITAL: Dr. Estevan Lara * (dictated by PENELOPE Ovalles). PRIMARY CARE PROVIDER: Jeni Gardner NP. OUTPATIENT POCKET AND PULLEY MACHINE OPERATOR: Dr. Lowe. PRIMARY DIAGNOSES: 1. Acute hypoxic respiratory failure secondary to chronic obstructive pulmonary disease exacerbation. 2. Oral thrush related to inhaled corticosteroid. SECONDARY DIAGNOSES: 1. Chronic obstructive pulmonary disease with frequent exacerbations. 2. Multiple sclerosis. 3. Osteoporosis. 4. Restless legs. 5. Anxiety. 6. History of DVT after surgery, no longer on anticoagulation. STUDIES WHILE IN THE HOSPITAL: 1. Chest/thorax CTA on 02/06/19: No acute findings in the chest. No pulmonary embolus. COPD. Left thyroid lobe is not identified. Correlated with surgical history. Coronary artery disease. 2. Chest x-ray on 02/12/19, impression: Appearance is consistent with chronic obstructive pulmonary disease involving 2 prior chest x-rays. HISTORY OF PRESENT ILLNESS/HOSPITAL COURSE: Nabila Cleary is a 73-year-old white female with past medical history significant for COPD with frequent exacerbations and MS, who presented to the emergency department on 02/06/19 with shortness of breath. The patient had an oxygen saturation of 85% in her primary care provider's office today, and she proceeded to the emergency department as advised. For further information, please see the history and physical written by Shelly Francois NP. Initially, the patient was requiring oxygen via nasal cannula and she does not normally require oxygen at home. This was eventually weaned down to no oxygen, and on the date of discharge, she ambulated on room air and maintained her oxygen saturation over 90%. The patient was given IV Solu-Medrol in the hospital, which was ultimately changed to p.o. prednisone. The patient did have a history of using Anoro Ellipta in the past but had poor result because she did not use it appropriately and had complained of powder in her mouth; therefore, the patient has been using nebulized ipratropium at home and DuoNeb and albuterol as needed. I did discuss this case with Dr. Lowe as the patient has very frequent exacerbations and is frequently treated outpatient and inpatient. Dr. Lowe felt it was worth attempting starting Bevespi in this patient. I requested Respiratory Therapy to educate the patient regarding proper inhaler usage as well as providing spacer education. Unfortunately, the patient did not receive the spacer initially during her hospital stay and did obviously use the inhaler improperly because she developed a mild oral thrush. This improved with nystatin oral solution. During her hospital stay, her sputum was found to have normal shaggy and cough with her sputum production slowly improved, though on the day of discharge she was still having productive cough. She is no longer symptomatic of shortness of breath and had no chest pain, fevers, or chills. PHYSICAL EXAM ON THE DAY OF DISCHARGE: General: Thin, elderly white female, sitting on the side of bed, appearing comfortable, in no acute distress. Eyes: PERRL. Sclerae anicteric. ENT: Mucous membranes moist. Neck: Supple without JVD. Lungs: Diminished lung sounds, very faint wheezing in bilateral lung bases. Cardio: Regular rate and rhythm without murmurs, rubs, or gallops. Abdomen: Soft, nontender, nondistended. Extremities: No clubbing, cyanosis, or edema. Neuro: The patient is alert, oriented x3. No focal deficits. Able to move all extremities. DISCHARGE PLAN: Diet: Regular unrestricted diet. Activity: The patient may return to normal activities as tolerated. The patient is advised to follow up with her primary care provider within 7 days of this discharge. She was advised to continue the nystatin oral solution , and if she is having no improvement, to discuss this with her primary care provider. She is advised to call Dr. Lowe's office to arrange a sooner followup, especially now that she is starting a new inhaler. She is advised to return to the emergency department if she is experiencing some shortness of breath, fever, chills, or chest pain. DISCHARGE MEDICATIONS: New Medications: 1. Prednisone 50 mg x3 days, then 40 mg x3 days, then 30 mg x3 days, then 20 mg x3 days, then 10 mg x3 days, then discontinue. 2. Nystatin suspension 5 mL p.o. q.i.d. x7 days, or further if needed determined by primary care provider. 3. Bevespi inhaler 1 inhalation b.i.d. 4. Tessalon 100 mg p.o. b.i.d. p.r.n. cough. Continued Home Medications: 1. Soma 250 mg p.o. daily p.r.n. moderate pain. 2. Combivent Respimat inhaled q.4 hours to q.6 hours p.r.n. shortness of breath /wheezing. 3. Lyrica 100 mg p.o. t.i.d. 4. DuoNeb inhaled q.i.d. p.r.n. shortness of breath/wheezing. 5. Venlafaxine 150 mg p.o. daily. 6. MiraLAX 17 g p.o. daily p.r.n. constipation. 7. Lipitor 20 mg p.o. daily. 8. Epinephrine 0.3 mg IM once p.r.n. anaphylaxis. 9. Diltiazem 120 mg p.o. daily. 10. Prolia 60 mg injection q.6 months. 11. Baclofen 5 mg p.o. b.i.d. p.r.n. spasms. 12. Xanax 0.25 mg p.o. daily p.r.n. anxiety. CONDITION ON DISCHARGE: Stable. DISPOSITION: Home. TIME SPENT: Approximately 35 minutes was spent on this discharge, approximately half this time was spent at bedside evaluating the patient, discussing the plan of discharge. PENELOPE OVALLES [id number]/[facility] #: [id number] MTDD
== END 2019-02-13 17:45 | disposition home or self-care (01) | DRG 190 ==
LOC: ED 16:46 → MED 20:38
PROVIDERS: ADMIT Hospitalist; ATTEND Internal Medicine
DX: J44.1 Chronic obstructive pulmonary disease with (acute) exacerbation (principal); J96.01 Acute respiratory failure with hypoxia; B37.0 Candidal stomatitis; I47.1 Supraventricular tachycardia; T38.0X5A Adverse effect of glucocorticoids and synthetic analogues, initial encounter; G35 Multiple sclerosis; M81.0 Age-related osteoporosis without current pathological fracture; G25.81 Restless legs syndrome; E78.5 Hyperlipidemia, unspecified; E78.00 Pure hypercholesterolemia, unspecified; M19.042 Primary osteoarthritis, left hand; M19.041 Primary osteoarthritis, right hand; F32.9 Major depressive disorder, single episode, unspecified; Z96.642 Presence of left artificial hip joint; I10 Essential (primary) hypertension; M16.11 Unilateral primary osteoarthritis, right hip; F41.9 Anxiety disorder, unspecified; Z86.718 Personal history of other venous thrombosis and embolism; Z90.711 Acquired absence of uterus with remaining cervical stump; Z88.1 Allergy status to other antibiotic agents; Y92.9 Unspecified place or not applicable; Z88.0 Allergy status to penicillin; Z88.2 Allergy status to sulfonamides; Z83.3 Family history of diabetes mellitus; Z82.3 Family history of stroke; Z87.891 Personal history of nicotine dependence; Z82.49 Family history of ischemic heart disease and other diseases of the circulatory system
CPT/HCPCS: 36415; 71046; 71275; 80048; 80053; 83036; 83605; 83735; 83880; 84484; 85025; 85027; 85379; 86140; 87040; 87070; 87205; 87899; 93005; 94640; 96365; 96375; 99283; A9270-GY; J0456; J0696; J1650; J2920; J2930; J3475; J3535; J7512; Q9967